=== PATIENT | female | born 1975 | race Caucasian/White ===

== ENCOUNTER 2018-03-01 18:59 | Emergency (ER) | payer OTHER, SELFPAY ==
--- NOTE | 2018-03-01 18:59 | DT_ITS ---
This patient was seen during an EMR downtime February 24, 2018 - March 03, 2018. This patient may have a combination of paper and electronic documentation or all paper documentation. All documentation is viewable within the e-chart portion of [facility] for each patient visit.
--- NOTE | 2018-03-01 20:15 | CT_ITS ---
STUDY: CT ABDOMEN AND PELVIS WITHOUT CONTRAST REASON FOR EXAM: Female, 42 years old. Right flank pain. History of kidney stones, diabetes, coronary artery stent, IUD. RADIATION DOSAGE (If Supplied By Facility): CTDIvol = ( 22.25 ) mGy, DLP = ( 1172.81 ) mGycm TECHNIQUE: Transaxial images were obtained from the dome of the diaphragm to the symphysis pubis without oral contrast, and without intravenous contrast. Sagittal and coronal images were reconstructed. Individualized dose optimization techniques were used for this CT. COMPARISON: None. FINDINGS: There is minor subsegmental atelectasis or scarring in the anterior lung bases. The heart size is upper normal. There are atherosclerotic calcifications and/or endovascular stent in the right coronary artery. There is hepatomegaly with the right lobe measuring just over 23 cm in height. The portal vein diameter is 18 mm. There is non-visualization of the gallbladder, which may be secondary to either contraction or a prior cholecystectomy. The diameter of the mid to distal common bile duct is 6.5 mm. There is mild splenomegaly, measuring 16.1 x 8.3 x 13 cm. Normal pancreas. Normal bilateral adrenal glands. Normal right kidney. Normal left kidney. No hydronephrosis. Normal visualized stomach. Normal small intestine. There are 1-2 small sigmoid colonic diverticula. No pericolonic inflammatory stranding. The appendix is visualized and appears normal. There is mild atherosclerotic calcification of the abdominal aorta and right common iliac artery, without a demonstrated aneurysm. Normal inferior vena cava. There are a several nonspecific periaortic lymph nodes of the retroperitoneum, and a 2.4 x 1.0 x 1.2 cm node near the aortic bifurcation. There is a 2.2 x 1.1 x 0.65 cm right common iliac node, and just above this a lymph node measuring 1.8 x 1.05 x 0.7 cm. There are a few borderline enlarged lymph nodes in the inguinal tissues. Incidental note of a 10 mm diameter ectasia of the right gonadal vein. Normal urinary bladder. There is a T-shaped intrauterine device in the endometrial cavity of the normal size, anteverted uterus. The ovaries are unremarkable There is a very small umbilical hernia containing fat. There are mild degenerative changes of the visualized breast spine, as well as the right lumbosacral facet articulation. CT/Abdomen/Pelvis without Cont IMPRESSION: 1. Hepatosplenomegaly. 2. A few borderline mildly enlarged periaortic retroperitoneal lymph nodes and inguinal lymph nodes identified. 3. The gallbladder is not visualized, and may be surgically absent. 4. Atherosclerotic calcifications of the right coronary artery, lower abdominal aorta, and right common iliac artery. 5. 1-2 small sigmoid colon diverticula seen without acute diverticulitis. No sign of bowel obstruction. The appendix is normal. 6. No nephrolithiasis or hydronephrosis. 7. T-shaped IUD in the endometrial cavity of the uterus. The ovaries are normal. Electronically Signed: Fer Velásquez MD at 20:52 EDT , Service support ,
[2018-03-04 06:35] LABS: Bacteria 0 SEEN /hpf (None Seen)
[2018-03-04 06:58] LABS: Color, Urine Yellow (Yellow); Glucose, Dipstick NEGATIVE (Normal); Ketone-Dipstick Negative (Negative); Leukocyte Esterase-Dipstick 100 /ul (Negative); Mucous, Urine 1+ /hpf (<or=2+); Nitrite-Dipstick Negative (Negative); Occult Blood-Urine 25 /ul (Negative); Protein-Dipstick 15 mg/dl (Negative); Red Blood Cells-Urine 0-5 SEEN /hpf (0-5); Squamous Epithelial Cells - UA 5-10 SEEN /hpf (5-10); Urine Bilirubin Dipstick Negative (Negative); Urine Clarity Sl Cldy (Clear); Urine Urobilinogen Normal (Normal); White Blood Cells 5-10 SEEN /hpf (0-5)
[2018-03-04 06:59] LABS: Yeast-Urine RARE /hpf (None Seen)
== END 2018-03-01 21:35 | disposition home or self-care (01) ==
LOC: ED 03-02 15:42
PROVIDERS: Emergency Provider Emergency Medicine; Family Provider Nurse Practitioner Family; PCP Nurse Practitioner Family
DX: R10.9 Unspecified abdominal pain (principal); R31.9 Hematuria, unspecified; I25.10 Atherosclerotic heart disease of native coronary artery without angina pectoris; E11.9 Type 2 diabetes mellitus without complications; I10 Essential (primary) hypertension; E78.00 Pure hypercholesterolemia, unspecified; E03.9 Hypothyroidism, unspecified; Z87.442 Personal history of urinary calculi; Z79.84 Long term (current) use of oral hypoglycemic drugs; Z79.82 Long term (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; Z79.899 Other long term (current) drug therapy
CPT/HCPCS: 74176; 81001; 96361; 96374; 96375; 99283; A4216; J2405

== ENCOUNTER 2018-03-30 19:10 | Emergency (ER) | payer OTHER, SELFPAY ==
[2018-03-30 19:11] VITALS: BP 136/91; PULSE 80; RESP 16; TEMP 36.6; O2SAT 98; BMI 39.1
--- NOTE | 2018-03-30 19:20 | RAD_ITS ---
STUDY: X-RAY - RIGHT ANKLE REASON FOR EXAM: Female, 42 years old. Fall TECHNIQUE: 3 view(s) of the ankle. COMPARISON: None. FINDINGS: There is no evidence of fracture or dislocation. There are no significant degenerative changes. There are no radiodense foreign bodies. There is soft tissue swelling at the lateral aspect of the right ankle. RAD/Ankle min 3 Views IMPRESSION: No fracture or dislocation. Soft tissue swelling laterally. Electronically Signed: Willis Martin, at 19:44 EDT Tel , Service support ,
--- NOTE | 2018-03-30 20:18 | ED.VISSUMM ---
- ER Visit Summary Date of Service: 03/30/18 Chief Complaint: Right ankle injury History of Present Illness: The patient is a 42 F presenting for evaluation secondary to right ankle injury. Patient states she is camping with her grandkids and they dug a hole and she stepped in it. She suffered a plantar inversion injury of her right ankle. She denies hitting her head or loss of consciousness. She is able to bear weight with some difficulty. Patient is not on any sort of anticoagulants, denies any other injuries. Physical Examination: Physical exam unremarkable except for examination of the right lower extremity. No evidence of proximal fibular head tenderness, the lateral malleolus is swelling and and tender, no medial malleolar tenderness. No midfoot or fifth metatarsal tenderness. 2+ DP and PT pulses that are bilaterally symmetric. Normal sensation over all dermatomes, normal capillary refill, no evidence of laxity with drawer testing. Test Results: 3 view of the ankle found to be negative Emergency Department Course and Treatment: Patient presented for evaluation secondary to an ankle injury. X-rays are negative. Patient was provided with an David wrap Naprosyn and follow-up with primary care. Disposition: Discharge Impression: 1. Right ankle sprain This note was generated with [employer] dictation software. It may contain incorrect words, spelling, and punctuation that were not noted in review of the chart prior to signing ED Disposition - Plan for ED Patient: Disposition: Home or Assisted Living Chief Complaint: Lower Extremity Injury Diagnosis: Ankle sprain Instructions: ED Sprain Ankle No X Ray Referrals: Татьяна Sprague NP-C [Primary Care Provider] - As Needed
== END 2018-03-30 20:39 | disposition home or self-care (01) ==
PROVIDERS: Emergency Provider Emergency Medicine; Family Provider Nurse Practitioner Family; PCP Nurse Practitioner Family
DX: S93.401A Sprain of unspecified ligament of right ankle, initial encounter (principal); W17.2XXA Fall into hole, initial encounter; Y93.89 Activity, other specified; Y92.833 Campsite as the place of occurrence of the external cause; Y99.8 Other external cause status; I25.10 Atherosclerotic heart disease of native coronary artery without angina pectoris; E11.9 Type 2 diabetes mellitus without complications; I10 Essential (primary) hypertension
CPT/HCPCS: 73610; 99282

== ENCOUNTER → 2018-07-22 20:00 | Outpatient (CLI) | payer OTHER, SELFPAY | PROVIDERS: Family Provider Nurse Practitioner Family; PCP Nurse Practitioner Family; Visit Provider Nurse Practitioner Family | DX: G47.33 Obstructive sleep apnea (adult) (pediatric) (principal) | CPT/HCPCS: 95810 ==

== ENCOUNTER 2018-08-21 07:05 | Emergency (ER) | payer OTHER, SELFPAY ==
[2018-08-21 07:06] VITALS: BP 161/90; PULSE 80; RESP 18; TEMP 36.6; O2SAT 96; BMI 37.4
--- NOTE | 2018-08-21 07:28 | ED.VISSUMM ---
- ER Visit Summary Date of Service: 08/21/18 Chief Complaint: Left eye pain History of Present Illness: The patient is a 43 F with left upper eyelid pain and swelling. This started gradually over the last 3 days and was worse this morning. It started more towards the nasal side and has progressed over the upper lid. She does feel some discomfort around her entire left eye but the swelling and redness is exclusive to her upper lid. She reports some mild photophobia but denies any other vision changes. No double vision. No pain with eye movements. No fever or systemic symptoms. She does wear contact lenses but stopped wearing them 2 days ago. Physical Examination: Afebrile and vital signs unremarkable except for a blood pressure of 161/90. She is alert and oriented. No acute distress. No objective photophobia on exam. Pupil round and reactive. Extraocular movements normal. The eye itself appears unremarkable. The left upper lid is erythematous and edematous, more so towards the nasal side. No palpable masses or induration. Skin otherwise normal. No lymphadenopathy noted. Test Results: None indicated Emergency Department Course and Treatment: Patient likely has a blepharitis but she does have some signs and symptoms that she might be progressing to a periorbital cellulitis. She was treated with both erythromycin topical and clindamycin by mouth. Instructed about warm compresses. She will also use baby shampoo and water to clean the area. Follow-up with ophthalmology for recheck. Precautions were discussed. No contact lenses. Orbital cellulitis discussed and patient will return if she has any issues. Treatment Plan: As above Disposition: Discharge Impression: 1. Left upper lid blepharitis This note was generated with [employer] dictation software. It may contain incorrect words, spelling, and punctuation that were not noted in review of the chart prior to signing ED Disposition - Plan for ED Patient: Chief Complaint: Eye Problem Instructions: Treating Blepharitis: Self-Care Prescriptions: Clindamycin [Cleocin] 450 mg PO 4X/DAY 7 Days #63 cap Referrals: Alexsander Hill MD [STAFF PHYSICIAN] -
[2018-08-21] MEDS: Erythromycin Base 1 OPTH.TUBE 1 APPLIC LEFT EYE (07:40)
[2018-08-21] MEDS: Clindamycin HCl 150 MG Capsule 450 MG PO (07:40)
[2018-08-21 07:52] VITALS: RESP 16; O2SAT 98
--- OUTSIDE RECORDS SUMMARY | 2018-10-16 07:16 | XMS RPT_ITS ---
:1975 Author Organization OHIP Care Team Providers Name Role Phone Va Emanuel Attending Unavailable Primay Care Physicia, No Primary Care Unavailable Azalea Price Attending Unavailable Lester Lopez Primary Care Unavailable Lico Polanco Attending Unavailable Lester Lopez Referring Unavailable Lester Lopez Primary Care Unavailable Trill, Lester Primary Care Unavailable Gil Cuevas Attending Unavailable TrillLester Attending Unavailable Trill, Lester Primary Care Unavailable Trill, Lester Primary Care Unavailable Eulogio Casey Attending Unavailable Trill, Lester Attending Unavailable Trill, Lester Primary Care Unavailable CHITO REAVES Attending Unavailable TERRELL, KAVITHA Attending Unavailable TRILL, LESTER C ([facility]) Referring Unavailable TERRELL, KAVITHA Referring Unavailable TERRELL, KAVITHA Referring Unavailable TRILL, LESTER C ([employer] [employer]) Attending Unavailable TRILL, LESTER C ([employer] [employer]) Referring Unavailable BHARTI MCCOLLUM Attending Unavailable TRILL, LESTER Tita ([employer] [employer]) Attending Unavailable TRILL, LESTER C ([employer] [employer]) Referring Unavailable FARHAT RUIZ Attending Unavailable RICKY CASTANEDA Attending Unavailable RICKY CASTANEDA Referring Unavailable TERRELL, KAVITHA Attending Unavailable TERRELL, KAVITHA Referring Unavailable TRILL, LESTER C ([employer] [employer]) Attending Unavailable TRILL, LESTER Tita ([employer] [employer]) Referring Unavailable JORGE LIMON Referring Unavailable Chito Reaves MD Admitting Unavailable Chito Reaves MD Attending Unavailable JORGE LIMON ([facility]) Attending Unavailable TERRELL, KAVITHA Referring Unavailable OBIE SAMANO Attending Unavailable OBIE SAMANO Referring Unavailable Rell ENGLISH Attending Unavailable TRILL, LESTER C Primary Care Unavailable SUAD ARCHIBALD Referring Unavailable TRILL, LESTER C Primary Care Unavailable TRILL, LESTER C Referring Unavailable TERRELL, KAVITHA Attending Unavailable TRILL, LESTER C Primary Care Unavailable TERRELL, KAVITHA Referring Unavailable TRILL, LESTER C Primary Care Unavailable TERRELL, KAVITHA Referring Unavailable Rell HI Attending Unavailable TRILL, LESTER C Referring Unavailable TRILL, LESTER C Primary Care Unavailable Rell CASTANEDA Referring Unavailable TRILL, LESTER C Primary Care Unavailable IMCA Referring Unavailable TRILL, LESTER C Primary Care Unavailable IMCA Referring Unavailable Rell CASTANEDA Attending Unavailable TRILL, LESTER C Primary Care Unavailable TRILL, LESTER C Primary Care Unavailable TERRELL, KAVITHA Referring Unavailable TERRELL, KAVITHA Attending Unavailable PROBLEMS PROBLEMS DATE TYPE CONDITION / CODE ATTENDING STATUS SOURCE 08/25/2018 Active Type 2 diabetes JESSICA, LESTER C Active [facility] mellitus without ([facility]) Clinic Other complications / [place] E11.9(ICD-10) Repository 08/18/2018 Active Unspecified LEONEL RICKY Active [place] abdominal pain / [facility] Other R10.9(ICD-10) [place] Repository 08/18/2018 Active Abnormal results of RICKY CASTANEDA Active [place] liver function [facility] Other studies / [place] R94.5(ICD-10) Repository 08/18/2018 Active Hepatomegaly with RICKY CASTANEDA Active [place] splenomegaly, not [facility] Other elsewhere [place] classified / Repository R16.2(ICD-10) 08/18/2018 Active Gastro-esophageal LEONELRICKY Active [place] reflux disease [facility] Other without esophagitis [place] / K21.9(ICD-10) Repository 08/18/2018 Admitting Unknown / Rell CASTANEDA Active [facility] diagnosis UNK(Unknown) [facility] Repository 08/18/2018 Active Atypical squamous PAPFARHAT Active [place] cells of [facility] Other undetermined [place] significance on Repository cytologic smear of cervix (ASC-US) / R87.610(ICD-10) 08/18/2018 Active Cervical high risk PAPFARHAT Active [place] human [facility] Other papillomavirus [place] (HPV) DNA test Repository positive / R87.810(ICD-10) 08/05/2018 Active Chest pain, LESTER LOPEZ Active [facility] unspecified / ([facility] Clinic Other R07.9(ICD-10) [place] Repository 08/05/2018 Active Cough / R05(ICD-10) LESTER LOPEZ Active [facility] ([facility] Clinic Other [place] Repository 08/05/2018 Active Abdominal LESTER LOPEZ Active [facility] distension ([facility]) Clinic Other (gaseous) / [place] R14.0(ICD-10) Repository 08/05/2018 Active Atelectasis / LESTER LOPEZ Active [facility] J98.11(ICD-10) ([facility]) Clinic Other [place] Repository 2018 Active Zoster without CONKLE, BHARTI Active [facility] complications / [facility] Other B02.9(ICD-10) [place] Repository 2018 Active Splenomegaly, not CONKLE, BHARTI Active [facility] elsewhere [facility] Other classified / [place] R16.1(ICD-10) Repository 2018 Active Localized enlarged CONKLE, BHARTI Active [facility] lymph nodes / [facility] Other R59.0(ICD-10) [place] Repository 01/29/2018 Active Obesity, LESTER LOPEZ Active [place] unspecified / ([facility] Clinic Other E66.9(ICD-10) [place] Repository 07/28/2018 Active Encounter for LESTER LOPEZ Active [place] [facility] adult ([facility]) Clinic Other medical examination [place] without abnormal Repository findings / Z00.00(ICD-10) 07/28/2018 Active Encounter for LESTER LOPEZ Active [place] gynecological ([facility]) Clinic Other examination [place] (general) (routine) Repository without abnormal findings / Z01.419(ICD-10) 07/28/2018 Active Encounter for LESTER LOPEZ Active [place] screening for ([facility]) Clinic Other malignant neoplasm [place] of cervix / Repository Z12.4(ICD-10) 07/28/2018 Active Encounter for LESTER LOPEZ Active [place] screening mammogram ([facility]) Clinic Other for malignant [place] neoplasm of breast Repository / Z12.31(ICD-10) 07/28/2018 Active Unspecified lump in LESTER LOPEZ Active [place] unspecified breast ([facility]) Clinic Other / N63.0(ICD-10) [place] Repository 07/23/2018 Active Other specified NA Active [place] abnormal Clinic Other immunological [place] findings in serum / Repository R76.8(ICD-10) 07/23/2018 Active Pain in unspecified NA Active [place] joint / Clinic Other M25.50(ICD-10) [place] Repository 05/21/2018 Active Generalized NA Active [place] enlarged lymph Clinic Other nodes / [place] R59.1(ICD-10) Repository 07/23/2018 Active Abnormal weight KAVITHA TERRELL Active [place] loss / Clinic Other R63.4(ICD-10) [place] Repository 08/07/2018 Unknown G47.33 - Lester Lopez Active [facility] ap[facility] (pediatric) / Repository G47.33(ICD-10) 07/11/2018 Admitting Follow-up / 145() POLIWALTER, Active [facility] ([place]) Repository 07/11/2018 Admitting Chest Pain / POLINSPAULO, Active [facility] [id number]() [facility] [place] Repository 07/11/2018 Admitting Palpitations / POLINSKI, Active [facility] 556854() [facility] [place] Repository 03/21/2018 Unknown R10.9 - Unspecified Dussel, Active [place] [facility] R10.9(ICD-10) Hospital Repository 09/25/2017 Admitting Encounter for CHITO REAVES Active [facility] diagnosis general adult LEMU[place] Repository medical examination without abnormal findings / Z00.00(ICD-10) PROCEDURES PROCEDURES No Procedure Records FoundRESULTS RESULTS MISC. TEST Collected: 09/03/2018 Status: F [facility]: [facility] 7:55 AM [facility] REPOSITORY TYPE CODE TESTS RESULT OUT OF REFERENCE UNITS RANGE LAB GO3X(LOINC) Test Name Humoral Pnl LAB GO1X(LOINC) [facility] Order HUMOR1 Code LAB GO2X(LOINC) Misc. Test SEE BELOW Result Result Comment: Immunoglobulin A 80 Reference range: 68 to 408 Unit: mg/dL (NOTE) REFERENCE INTERVAL: Immunoglobulin A Access complete set of age- and/or gender-specific reference intervals for this test in the [facility] Test Directory ([facility]). Immunoglobulin M 28 L Reference range: 35 to 263 Unit: mg/dL (NOTE) REFERENCE INTERVAL: Immunoglobulin M Access complete set of age- and/or gender-specific reference intervals for this test in the [facility] Test Directory ([facility]). Immunoglobulin G 769 Reference range: 768 to 1632 Unit: mg/dL (NOTE) REFERENCE INTERVAL: Immunoglobulin G Access complete set of age- and/or gender-specific reference intervals for this test in the [facility] Test Directory ([facility]). IgG 1 365 Reference range: 240 to 1118 Unit: mg/dL (NOTE) REFERENCE INTERVAL: Immunoglobulin G Subclass 1 Access complete set of age- and/or gender-specific reference intervals for this test in the [facility] Test Directory ([facility]). IgG 2 229 Reference range: 124 to 549 Unit: mg/dL (NOTE) REFERENCE INTERVAL: Immunoglobulin G Subclass 2 Access complete set of age- and/or gender-specific reference intervals for this test in the [facility] Test Directory ([facility]). IgG 3 91 Reference range: 21 to 134 Unit: mg/dL (NOTE) REFERENCE INTERVAL: Immunoglobulin G Subclass 3 Access complete set of age- and/or gender-specific reference intervals for this test in the [facility] Test Directory ([facility]). IgG 4 8 Reference range: 1 to 123 Unit: mg/dL (NOTE) REFERENCE INTERVAL: Immunoglobulin G Subclass 4 Access complete set of age- and/or gender-specific reference intervals for this test in the [facility] Test Directory ([facility]). Performed by [facility], [address] [place] [id number] [email or web address], Jung Pickering MD, Lab. Director Diphtheria Abs, IgG 0.6 Unit: IU/mL (NOTE) INTERPRETIVE INFORMATION: Diphtheria Ab, IgG Antibody concentration of greater than 0.1 IU/mL is usually considered protective. Responder status is determined according to the ratio of a one month post-vaccination sample to pre-vaccination concentrations of Diphtheria IgG Abs as follows: 1. If the one month post-vaccination concentration is less than 1.0 IU/mL, the patient is considered to be a non-responder. 2. If the post-vaccination concentration is greater than or equal to 1.0 IU/mL, a patient with a ratio of less than 1.5 is a non-responder, a ratio of 1.5 to less than 3.0, a weak responder, and a ratio of 3.0 or greater, a good responder. 3. If the pre-vaccination concentration is greater than 1.0 IU/mL, it may be difficult to assess the response based on a ratio alone. A post-vaccination concentration above 2.5 IU/mL in this case is usually adequate. Test developed and characteristics determined by [facility]. See Compliance Statement B: [facility]/ Tetanus Abs, IgG 11.2 Unit: IU/mL (NOTE) INTERPRETIVE INFORMATION: Tetanus Ab, IgG Antibody concentration of greater than 0.1 IU/mL is usually considered protective. Responder status is determined according to the ratio of a one-month post-vaccination sample to pre-vaccination concentration of Tetanus IgG Abs as follows: 1. If the one month post-vaccination concentration is less than 1.0 IU/mL, the patient is considered a non-responder. 2. If the post-vaccination concentration is greater than or equal to 1.0 IU/mL, a patient with a ratio of less than 1.5 is a non-responder, a ratio of 1.5 to less than 3.0, a weak responder, and a ratio of 3.0 or greater, a good responder. 3. If the pre-vaccination concentration is greater than 1.0 IU/mL, it may be difficult to assess the response based on a ratio alone. A post-vaccination concentration above 2.5 IU/mL in this case is usually adequate. Test developed and characteristics determined by [facility]. See Compliance Statement B: [facility]/CS Pneu Serotype 1 2.22 Unit: ug/mL Pneu Serotype 3 7.97 Unit: ug/mL Pneu Serotype 4 0.93 Unit: ug/mL Pneu Serotype 5 10.10 Unit: ug/mL Pneu Serotype 6B 0.85 Unit: ug/mL Pneu Serotype 7F 0.67 Unit: ug/mL Pneu Serotype 8 2.39 Unit: ug/mL Pneu Serotype 9N 1.59 Unit: ug/mL Pneu Serotype 9V 0.46 Unit: ug/mL Pneu Serotype 12F 1.03 Unit: ug/mL Pneu Serotype 14 33.89 Unit: ug/mL Pneu Serotype 18C 0.93 Unit: ug/mL Pneu Serotype 19F 6.09 Unit: ug/mL Pneu Serotype 23F >30.78 Unit: ug/mL Pneu Interpretation SEE NOTE (NOTE) INTERPRETIVE INFORMATION: Streptococcus pneumoniae Antibodies, IgG A pre- and post-vaccination comparison is required to adequately assess the humoral immune response to Prevnar 7 (P7), Prevnar 13 (P13), and/or Pneumovax 23 (PNX) Streptococcus pneumoniae vaccines. Pre-vaccination samples should be collected prior to vaccine administration. Post-vaccination samples should be obtained at least 4 weeks after immunization. Testing of post-vaccination samples alone will provide only general immune status of the individual to various pneumococcal serotypes. In the case of pure polysaccharide vaccine, indication of immune system competence is further delineated as an adequate response to at least 50 percent of the serotypes in the vaccine challenge for those 2-5 years of age and to at least 70 percent of the serotypes in the vaccine challenge for those 6-65 years of age. Individual immune response may vary based on age, past exposure, immunocompetence, and pneumococcal serotype. Responder Status Antibody Ratio Non-Responder . . . . . . . . . . . . . . Less than 2-fold Weak Responder . . . . . . . . . . . . . 2-fold to 4-fold Good Responder . . . . . . . . . . . . . Greater than 4-fold A response to 50-70 percent or more of the serotypes in the vaccine challenge is considered a normal humoral response(1). Antibody concentration greater than 1.0 - 1.3 ug/mL is generally considered long-term protection(2). References: 1. Lenore INGRAM, Alyssa JW, Travon X, HE, Juanito HR. Multilaboratory assessment of threshold versus fold-change algorithms for minimizing analytical variability in multiplexed pneumococcal IgG measurements. Clin Vaccine Immunol. 2014;21(7):982-8. 2. Lenore INGRAM, Juanito JENSEN. Use and Clinical Interpretation of Pneumococcal Antibody Measurements in the Evaluation of Humoral Immune Function. Clin Vaccine Immunol. 2015;22(2):148-152. Test developed and characteristics determined by [facility]. See Compliance Statement B: [facility]/CS Performing Laboratory: Performed By: #### GOX #### [place] [address] [facility]Y [facility] Collected: 09/03/2018 Status: F Source: [place] 7:53 AM [facility] REPOSITORY TYPE CODE TESTS RESULT OUT OF REFERENCE UNITS RANGE LAB LYP1X([place]) Immunodeficiency CDC SEE BELOW Result Comment: CD3+ T Cell % 78 60-89 % Specimen age is outside of the required limit of the IVD status reagent employed in this test. However, studies have been performed by the Flow Cytometry laboratory at the [facility] showing acceptable correlations within 72 hours of draw with the exception of NK cell percentage and absolute numbers. If clinically indicated, recommend repeat testing performed on fresh sample. LYMPHOCYTE VIABILITY WAS 99% CD3+ T Cell No. [phone] Cells/uL CD4+CD3+ T Cell % 54 34-61 % CD4+CD3+ T Cell No. [phone] Cells/uL CD3+CD8+ T Cell % 22 10-41 % CD3+CD8+ T Cell No. [phone] Cells/uL CD19+ B Cell % 15 5-22 % CD19+ B Cell No. [phone] Cells/uL NK Cell % 7 5-25 % NK Cell No. 93 L 102-565 Cells/uL CD4/CD8 Ratio 2.49 1.10-3.25 Immunodef. Comment SEE BELOW Clinical interpretation of lymphocyte subsets must be made with caution. Relative and absolute values may be profoundly affected by immunosuppressive or cytotoxic therapy, and be abnormal in a wide variety of infectious, inflammatory, autoimmune and neoplastic disorders. The following number of cluster designated antibodies were used for the definition of the above reported populations: CD3, CD4, CD8, CD16, CD19, and CD56. This test was developed and its performance characteristics determined by [facility] Medicine [place] ([facility]). It has not been cleared or approved by the FDA. [facility] is regulated under CLIA as qualified to perform high-complexity testing. This test is used for clinical purposes. It should not be regarded as investigational or for research. Performing Laboratory: [place] [id number] [place] [id number] Performed By: #### LYP1X #### [place] [address] PROGRESS Observed: 09/03/2018 Status: COMPLETED Source: [place] 7:16 AM [facility] REPOSITORY HNO ID: [id number] Author: Jorge Limon Service: (none) Author Type: Physician Type: Progress Notes Filed: 09/03/2018 9:29 AM Note Text: This is a request for consultation by Kavitha Terrell MD for the evaluation of low IgM. Please note that this note has been generated by the [employer] dictation software. Quite often unanticipated grammatical, syntax, homophones, and other interpretive errors are inadvertently transcribed by the computer software. Please disregard these errors. Please excuse any errors that have escaped final proofreading. Ms. Tan is a 43 year old female who, has been seen by Dr. Terrell and rheumatology, she has had enlarged lymph nodes, and a positive LARISSA. During her workup she was found to have a low IgM level, her IgM level was 26, the lower limit of normal is considered to be 40. Her other immunoglobulin level such as IgA, IgE, IgG are all within normal range. Her IgG is 769. I inquired whether she has a history of frequent infections, she says that the only frequent infections she experiences is ingrown toenails with MRSA, she gets fingernail infection from time to time that needs to get lanced. She has not had a prior workup of her immune system, and this is the first time she has been told that her antibody level is low. She apparently has had a Pneumovax several years ago, does not seem like it was within the last 5 years. We then went over a detailed history of infections, this is detailed below: Recurrent infections: 1. Sinusitis: Once a year 2. Bronchitis: No, also not a smoker 3. Pneumonia: Some scarring seen on an Xray and told may have missed a PNA once 4. Meningitis: None 5. Osteomyelitis: None 6. Bacteremia: None 7. Sepsis: NOne 8. Endocarditis: None 9. GI Infections: None 10. UTIs: Not really 11. Otitis media in the past None 12. Cellulitis: Had once in last two years from ingrown toenail, was on Keflex 13. Other Infections:see HPI 14. Steroid Use: Was on steroids for shingles once, a month ago, just took for a day 15. Biologics:None 16. Abx use:see HPI 17. IV Abx:None Potential CVID related comorbidities: Fevers- None LAD-Noticed 1.5 years ago, associated with LN, has had a Bx before that's showed reactibe, flared again a month ago, now even pelvic Enteropathy-None Fatigue-Yes. With 10 pounds of unintentional weight loss Autoimmune Disease/Joint pain-+LARISSA, but does not have a dx, does have sicca Sx Splenomegaly-Some spleen enlargement on CT scan, to screen for LN No family history of immune deficiency. Atopy: Does not feel she has seasonal allergies, possibly cat, does not have cats Nasal polyps: The patient has never had nasal polyps. Asthma: The patient has a history of asthma, was more severe as child, now only viral induced, maximum times in once a year Eczema: The patient has no history of eczema. No Beesting allergies. No medication allergies, just chest pain on imitrex. Ultram makes her heart race. Past Medical History: PAST MEDICAL HISTORY Diagnosis Date - Abdominal pain - Abnormal liver ultrasound - Allergic rhinitis - Anxiety - Asthma no issues for several years - Bipolar 2 disorder (HCC) 11/21/2011 - CAD (coronary artery disease) - Calculus of gallbladder without mention of cholecystitis or obstruction 08/24/2009 - Cervical high risk human papillomavirus (HPV) DNA test positive - Common cold - Depressive disorder Dr. Cornell- [facility] - Diabetes (HCC) - Diarrhea - Double vessel coronary artery disease 2 stents - Elevated LFTs - Excessive or frequent menstruation Heavy periods Resolved - Female stress incontinence 01/13/2008 - Ganglion of joint 10/14/2007 - GERD (gastroesophageal reflux disease) - Hand pain - Hemorrhage of gastrointestinal tract, unspecified - Hepatosplenomegaly - History of intrauterine contraceptive device Mirena placed May 2015 Dr. Willy Schmid - Hyperlipidemia - Hypertension - Internal hemorrhoids without mention of complication - Irregular menstrual cycle Irregular periods Resolved - Irritable bowel syndrome Irritable bowel - Obesity - Obstructive sleep apnea Last PSG 07/22/18 = AHI 14.5 - Onychomycosis - Other specified acquired hypothyroidism - Ovarian cystic mass 06/07/2010 - Panic attack 07/18/2010 - Papanicolaou smear of cervix with atypical squamous cells of undetermined significance (ASC-US) - Paresthesia of hand - PLANTAR Fasciitis 07/15/2007 - PTSD (post-traumatic stress disorder) - Status post left heart catheterization 10/2014 Past Surgical History: PAST SURGICAL HISTORY Procedure Laterality Date - ANGIOPLASTY 11/23/14 [facility]-proximal LAD and proximal RCA 2 stents - CARDIAC CATHETERIZATION HX 11/20/14 [facility]proximal RCA lesion - COLONOSCOP W/ OR W/O BRSH SPEC 06/09/14 Colonoscopy - COLONOSCOPY W/BX 08/13/07 - COLPOSCOPY (VAGINOSCOPY) 2006 Colposcopy - EXCIS PRIMARY GANGLION WRIST 11/04/07 LEFT WRIST, Dr. Alcantara - LAP CHOLECYSTECT/CHOLANGIOGRAPHY 09/05/2009 Normal IOC - LIGATE FALLOPIAN TUBE 10/1998 Tubal ligation, [facility] - PAST SURGICAL HISTORY OF Left 01/28/15 middle trigger finger release - S SLING DANIELLE HARVEY TOTScott [id number] 2013 monarc - THYROIDECTOMY 01/1994 goiter no cancer Allergies: Benedryl [Diphenhydramine]; Doxycycline; Imitrex [Sumatriptan Succinate]; Phenergan [Promethazine Hcl]; Tramadol Current Outpatient Prescriptions: albuterol HFA (VENTOLIN HFA) 90 mcg/actuation inhaler Inhale 2 Puffs as instructed every 4 hours as needed for Wheezing/Shortness of Breath. ascorbic acid, vitamin C, (VITAMIN C) 500 mg tablet Take 500 mg by mouth once daily. aspirin 81 mg chewable tablet Take 81 mg by mouth. atorvastatin (LIPITOR) 20 mg tablet Take 1 tablet by mouth once daily. blood sugar diagnostic (BLOOD GLUCOSE TEST) test strip Test blood sugar(s) one times daily. Dx: 250.00. Insulin: No blood sugar diagnostic (ONETOUCH ULTRA TEST) test strip Use as instructed. Insurance preferred brand. Blood-Glucose Meter misc 1 Units once daily. carvedilol (COREG) 12.5 mg tablet Take 1 tablet by mouth twice daily. Cholecalciferol, Vitamin D3, 1,000 unit cap Take 1 capsule by mouth once daily. clopidogrel (PLAVIX) 75 mg tablet Take 1 tablet by mouth once daily. famotidine (PEPCID) 20 mg tablet Take 1 tablet by mouth daily at bedtime. ferrous sulfate (IRON) 325 mg (65 mg iron) tablet Take 1 tablet by mouth daily with breakfast. fluticasone (FLONASE) 50 mcg/actuation nasal spray Use 1 [place] in each nostril once daily. gabapentin (NEURONTIN) 100 mg capsule Take 2 capsules by mouth daily at bedtime for 30 days. JANUVIA 100 mg tablet TAKE 1 TABLET EVERY DAY Lancets lancets Test blood sugar(s) one times daily. Dx: 250.00. Insulin: No Lancets lancets Use as instructed. Preferred insurance brand. levonorgestrel (MIRENA) 20 mcg/24 hr (5 years) IUD 1 Each by INTRAUTERINE route continuous. levothyroxine (SYNTHROID) 175 mcg tablet Take 1 tablet by mouth once daily. melatonin 10 mg cap Take 10 mg by mouth daily at bedtime. metFORMIN (GLUCOPHAGE) 1,000 mg tablet TAKE 1 TABLET TWICE DAILY WITH meals pantoprazole DR (PROTONIX) 40 mg tablet Take 1 tablet by mouth once daily. perflutren lipid microspheres (DEFINITY) 1.1 mg/mL injection (to be provided with echo procedure) Inject 1.3 mL intravenously as directed. clindamycin (CLEOCIN) 150 mg capsule 4 TIMES DAILY doxycycline (VIBRA-TABS) 100 mg tablet Take 100 mg by mouth twice daily. FLUARIX QUAD [id number], PF, 60 mcg (15 mcg x 4)/0.5 mL syrg No current facility-administered medications for this visit. 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 Social History Main Topics Smoking status: Never Smoker Smokeless tobacco: Never Used Alcohol use: No Drug use: No Comment: no reported history Sexual activity: Yes Partners with: Male control/protection: Surgical, Tubal Ligation Other Topics Concern Caffeine Concern Not Asked Comment:uses caffeine FAMILY HISTORY Problem Relation Age of Onset - Cancer Mother /lung cancer/nonhodgkins lymphoma/Ovarian - Asthma Mother - Hyperlipidemia Mother - other (depressive disorder) Mother - Heart Father - Hyperlipidemia Father - Hypertension Father - other (cornary artery disease) Father heart attack and stents put in - Hypertension Brother - Blood Clots Brother Lungs - No Known Problems Brother - No Known Problems Brother - Osteoporosis Maternal Grandmother - Coronary Artery Disease Paternal Grandmother - Diabetes Paternal Grandmother - Coronary Artery Disease Paternal Grandfather - Hypertension Paternal Grandfather - Hypertension Son - Breast Cancer Other maternal great grandmother REVIEW OF SYSTEMS: GENERAL: Denies fever, chills, night sweats, or changes in weight. DERM: Denies any new skin conditions, rashes or changing moles. EYES: Denies recent visual changes. ENT: Denies hearing loss or tinnitus RESP: Denies any cough, dyspnea, or wheezing. CV: Denies any chest pain with exertion or at rest, palpitations, syncope, or edema. GI: Denies any nausea, vomiting, abdominal pain, heartburn, changes in bowel habit, MUSCULOSKELETAL: Denies any joint swelling NEURO: Denies any headaches PSYCH: Denies any sleeping problems HEME/LYMPHATIC/IMMUNO: Denies bruising ENDO: Denies any heat or cold intolerance, polyuria or polydipsia. All other review of systems negative except for those listed above. EXAM: Blood pressure 142/77, pulse 66, resp. rate 14, height 165.1 cm (5' 5), weight 102.1 kg (225 lb), SpO2 100 %. APPEARANCE: Well appearing, alert, in no acute distress, well-hydrated, well nourished. EYES: sclera non-icteric, conjunctiva non-injected EARS: External ears normal. Canals clear. TM's normal. NOSE/SINUS: Nares normal. Septum midline. Mucosa normal. No drainage or sinus tenderness. OROPHARYNX: Lips, tongue normal. Oropharynx clear. THROAT: no erythema NECK: neck supple, no adenopathy HEART: Regular rate, regular rhythm, S1 normal, S2 normal, no S3, no S4 and no murmur LUNG: clear to auscultation LYMPH NODES: No cervical lymphadenopathy ABDOMEN: soft, nontender, nondistended EXTREMITIES: No deformities, No skin discoloration and No edema NEURO: Awake, alert and oriented x 3, Normal gait and No involuntary motions. SKIN: Skin color, texture, turgor normal. No rashes or lesions. ASSESSMENT AND PLAN: Ms. 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 She does not have a significant history of recurrent infections, does have diffuse lymphadenopathy of undetermined significance at this time, with positive LARISSA. Discussed with her that sometimes isolated low levels of IgM can be associated with other autoimmune conditions, and rarely it can cause an immune deficiency called selective IgM deficiency. (R76.8) Low serum IgM for age (primary encounter diagnosis) Comment: We shall recheck the humeral panel, to determine whether the initial IgM level was accurate. I also gave her pneumonia vaccine today, in the form of Pneumovax, if her IgM level was found to be low again, we shall correlate IgG titers to Pneumovax to see what her antibody responses. We'll also review his CDC immunodeficiency panel. Have a low suspicion of any underlying immunodeficiency here. Selective IgM deficiency is extremely rare, there is roughly 500 cases reported in the medical literature. Plan: IMMUNODEFICIENCY CDC, HUMORAL IMMUNITY PANEL 1, PNEUMOCOCCAL IMMUNIZATION PPSV 23 This note has been shared with the consulting provider, via the electronic medical record, or regular [place] mail service. Jorge Limon MD Allergy and Clinical Immunology PAGER: [phone] Date: September 03, 2018 Time:7:16 AM CNOV Observed: 09/03/2018 Status: COMPLETED Source: [place] 7:00 AM [facility] REPOSITORY Office Visit ([facility]) MAHI TAN ([id number]) 1975 F Date Time Provider Department 09/03/18 7:00 AM JORGE LIMON [facility] During your visit today, we recorded the following information about you: Pulse Respiration Blood pressure Weight 66/minute 14/minute 142/77 102.1 kg Height 1.651 m Jorge Limon MD 09/03/2018 9:29 AM Signed This is a request for consultation by Kavitha Terrell MD for the evaluation of low IgM. Please note that this note has been generated by the [employer] dictation software. Quite often unanticipated grammatical, syntax, homophones, and other interpretive errors are inadvertently transcribed by the computer software. Please disregard these errors. Please excuse any errors that have escaped final proofreading. Ms. Tan is a 43 year old female who, has been seen by Dr. Terrell and rheumatology, she has had enlarged lymph nodes, and a positive LARISSA. During her workup she was found to have a low IgM level, her IgM level was 26, the lower limit of normal is considered to be 40. Her other immunoglobulin level such as IgA, IgE, IgG are all within normal range. Her IgG is 769. I inquired whether she has a history of frequent infections, she says that the only frequent infections she experiences is ingrown toenails with MRSA, she gets fingernail infection from time to time that needs to get lanced. She has not had a prior workup of her immune system, and this is the first time she has been told that her antibody level is low. She apparently has had a Pneumovax several years ago, does not seem like it was within the last 5 years. We then went over a detailed history of infections, this is detailed below: Recurrent infections: 1. Sinusitis: Once a year 2. Bronchitis: No, also not a smoker 3. Pneumonia: Some scarring seen on an Xray and told may have missed a PNA once 4. Meningitis: None 5. Osteomyelitis: None 6. Bacteremia: None 7. Sepsis: NOne 8. Endocarditis: None 9. GI Infections: None 10. UTIs: Not really 11. Otitis media in the past None 12. Cellulitis: Had once in last two years from ingrown toenail, was on Keflex 13. Other Infections:see HPI 14. Steroid Use: Was on steroids for shingles once, a month ago, just took for a day 15. Biologics:None 16. Abx use:see HPI 17. IV Abx:None Potential CVID related comorbidities: Fevers- None LAD-Noticed 1.5 years ago, associated with LN, has had a Bx before that's showed reactibe, flared again a month ago, now even pelvic Enteropathy-None Fatigue-Yes. With 10 pounds of unintentional weight loss Autoimmune Disease/Joint pain-+LARISSA, but does not have a dx, does have sicca Sx Splenomegaly-Some spleen enlargement on CT scan, to screen for LN No family history of immune deficiency. Atopy: Does not feel she has seasonal allergies, possibly cat, does not have cats Nasal polyps: The patient has never had nasal polyps. Asthma: The patient has a history of asthma, was more severe as child, now only viral induced, maximum times in once a year Eczema: The patient has no history of eczema. No Beesting allergies. No medication allergies, just chest pain on imitrex. Ultram makes her heart race. Past Medical History: PAST MEDICAL HISTORY Diagnosis Date - Abdominal pain - Abnormal liver ultrasound - Allergic rhinitis - Anxiety - Asthma no issues for several years - Bipolar 2 disorder (HCC) 11/21/2011 - CAD (coronary artery disease) - Calculus of gallbladder without mention of cholecystitis or obstruction 08/24/2009 - Cervical high risk human papillomavirus (HPV) DNA test positive - Common cold - Depressive disorder Dr. [facility]- [facility] - Diabetes (HCC) - Diarrhea - Double vessel coronary artery disease 2 stents - Elevated LFTs - Excessive or frequent menstruation Heavy periods Resolved - Female stress incontinence 01/13/2008 - Ganglion of joint 10/14/2007 - GERD (gastroesophageal reflux disease) - Hand pain - Hemorrhage of gastrointestinal tract, unspecified - Hepatosplenomegaly - History of intrauterine contraceptive device Mirena placed May 2015 Dr. Willy Schmid - Hyperlipidemia - Hypertension - Internal hemorrhoids without mention of complication - Irregular menstrual cycle Irregular periods Resolved - Irritable bowel syndrome Irritable bowel - Obesity - Obstructive sleep apnea Last PSG 07/22/18 = AHI 14.5 - Onychomycosis - Other specified acquired hypothyroidism - Ovarian cystic mass 06/07/2010 - Panic attack 07/18/2010 - Papanicolaou smear of cervix with atypical squamous cells of undetermined significance (ASC-US) - Paresthesia of hand - PLANTAR Fasciitis 07/15/2007 - PTSD (post-traumatic stress disorder) - Status post left heart catheterization 10/2014 Past Surgical History: PAST SURGICAL HISTORY Procedure Laterality Date - ANGIOPLASTY 11/23/14 [facility]-proximal LAD and proximal RCA 2 stents - CARDIAC CATHETERIZATION HX 11/20/14 [facility]-proximal RCA lesion - COLONOSCOP W/ OR W/O [facility] SPEC 06/09/14 Colonoscopy - COLONOSCOPY W/BX 08/13/07 - COLPOSCOPY (VAGINOSCOPY) 2006 Colposcopy - EXCIS PRIMARY GANGLION WRIST 11/04/07 LEFT WRIST, Dr. Alcantara - LAP CHOLECYSTECT/CHOLANGIOGRAPHY 09/05/2009 Normal IOC - LIGATE FALLOPIAN TUBE 10/1998 Tubal ligation, [facility] - PAST SURGICAL HISTORY OF Left 01/28/15 middle trigger finger release - S SLING DARRYNDR HARVEY JAS [id number] 2013 monarc - THYROIDECTOMY 01/1994 goiter no cancer Allergies: Benedryl [Diphenhydramine]; Doxycycline; Imitrex [Sumatriptan Succinate]; Phenergan [Promethazine Hcl]; Tramadol Current Outpatient Prescriptions: albuterol HFA (VENTOLIN HFA) 90 mcg/actuation inhaler Inhale 2 Puffs as instructed every 4 hours as needed for Wheezing/Shortness of Breath. ascorbic acid, vitamin C, (VITAMIN C) 500 mg tablet Take 500 mg by mouth once daily. aspirin 81 mg chewable tablet Take 81 mg by mouth. atorvastatin (LIPITOR) 20 mg tablet Take 1 tablet by mouth once daily. blood sugar diagnostic (BLOOD GLUCOSE TEST) test strip Test blood sugar(s) one times daily. Dx: 250.00. Insulin: No blood sugar diagnostic (ONETOUCH ULTRA TEST) test strip Use as instructed. Insurance preferred brand. Blood-Glucose Meter misc 1 Units once daily. carvedilol (COREG) 12.5 mg tablet Take 1 tablet by mouth twice daily. Cholecalciferol, Vitamin D3, 1,000 unit cap Take 1 capsule by mouth once daily. clopidogrel (PLAVIX) 75 mg tablet Take 1 tablet by mouth once daily. famotidine (PEPCID) 20 mg tablet Take 1 tablet by mouth daily at bedtime. ferrous sulfate (IRON) 325 mg (65 mg iron) tablet Take 1 tablet by mouth daily with breakfast. fluticasone (FLONASE) 50 mcg/actuation nasal spray Use 1 Harcourt in each nostril once daily. gabapentin (NEURONTIN) 100 mg capsule Take 2 capsules by mouth daily at bedtime for 30 days. JANUVIA 100 mg tablet TAKE 1 TABLET EVERY DAY Lancets lancets Test blood sugar(s) one times daily. Dx: 250.00. Insulin: No Lancets lancets Use as instructed. Preferred insurance brand. levonorgestrel (MIRENA) 20 mcg/24 hr (5 years) IUD 1 Each by INTRAUTERINE route continuous. levothyroxine (SYNTHROID) 175 mcg tablet Take 1 tablet by mouth once daily. melatonin 10 mg cap Take 10 mg by mouth daily at bedtime. metFORMIN (GLUCOPHAGE) 1,000 mg tablet TAKE 1 TABLET TWICE DAILY WITH meals pantoprazole DR (PROTONIX) 40 mg tablet Take 1 tablet by mouth once daily. perflutren lipid microspheres (DEFINJust Sing It) 1.1 mg/mL injection (to be provided with echo procedure) Inject 1.3 mL intravenously as directed. clindamycin (CLEOCIN) 150 mg capsule 4 TIMES DAILY doxycycline (VIBRA-TABS) 100 mg tablet Take 100 mg by mouth twice daily. FLUARIX QUAD [id number], PF, 60 mcg (15 mcg x 4)/0.5 mL syrg No current facility-administered medications for this visit. 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 Social History Main Topics Smoking status: Never Smoker Smokeless tobacco: Never Used Alcohol use: No Drug use: No Comment: no reported history Sexual activity: Yes Partners with: Male control/protection: Surgical, Tubal Ligation Other Topics Concern Caffeine Concern Not Asked Comment:uses caffeine FAMILY HISTORY Problem Relation Age of Onset - Cancer Mother /lung cancer/nonhodgkins lymphoma/Ovarian - Asthma Mother - Hyperlipidemia Mother - other (depressive disorder) Mother - Heart Father - Hyperlipidemia Father - Hypertension Father - other (cornary artery disease) Father heart attack and stents put in - Hypertension Brother - Blood Clots Brother Lungs - No Known Problems Brother - No Known Problems Brother - Osteoporosis Maternal Grandmother - Coronary Artery Disease Paternal Grandmother - Diabetes Paternal Grandmother - Coronary Artery Disease Paternal Grandfather - Hypertension Paternal Grandfather - Hypertension Son - Breast Cancer Other maternal great grandmother REVIEW OF SYSTEMS: GENERAL: Denies fever, chills, night sweats, or changes in weight. DERM: Denies any new skin conditions, rashes or changing moles. EYES: Denies recent visual changes. ENT: Denies hearing loss or tinnitus RESP: Denies any cough, dyspnea, or wheezing. CV: Denies any chest pain with exertion or at rest, palpitations, syncope, or edema. GI: Denies any nausea, vomiting, abdominal pain, heartburn, changes in bowel habit, MUSCULOSKELETAL: Denies any joint swelling NEURO: Denies any headaches PSYCH: Denies any sleeping problems HEME/LYMPHATIC/IMMUNO: Denies bruising ENDO: Denies any heat or cold intolerance, polyuria or polydipsia. All other review of systems negative except for those listed above. EXAM: Blood pressure 142/77, pulse 66, resp. rate 14, height 165.1 cm (5' 5), weight 102.1 kg (225 lb), SpO2 100 %. APPEARANCE: Well appearing, alert, in no acute distress, well-hydrated, well nourished. EYES: sclera non-icteric, conjunctiva non-injected EARS: External ears normal. Canals clear. TM's normal. NOSE/SINUS: Nares normal. Septum midline. Mucosa normal. No drainage or sinus tenderness. OROPHARYNX: Lips, tongue normal. Oropharynx clear. THROAT: no erythema NECK: neck supple, no adenopathy HEART: Regular rate, regular rhythm, S1 normal, S2 normal, no S3, no S4 and no murmur LUNG: clear to auscultation LYMPH NODES: No cervical lymphadenopathy ABDOMEN: soft, nontender, nondistended EXTREMITIES: No deformities, No skin discoloration and No edema NEURO: Awake, alert and oriented x 3, Normal gait and No involuntary motions. SKIN: Skin color, texture, turgor normal. No rashes or lesions. ASSESSMENT AND PLAN: Ms. 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 She does not have a significant history of recurrent infections, does have diffuse lymphadenopathy of undetermined significance at this time, with positive LARISSA. Discussed with her that sometimes isolated low levels of IgM can be associated with other autoimmune conditions, and rarely it can cause an immune deficiency called selective IgM deficiency. (R76.8) Low serum IgM for age (primary encounter diagnosis) Comment: We shall recheck the humeral panel, to determine whether the initial IgM level was accurate. I also gave her pneumonia vaccine today, in the form of Pneumovax, if her IgM level was found to be low again, we shall correlate IgG titers to Pneumovax to see what her antibody responses. We'll also review his CDC immunodeficiency panel. Have a low suspicion of any underlying immunodeficiency here. Selective IgM deficiency is extremely rare, there is roughly 500 cases reported in the medical literature. Plan: IMMUNODEFICIENCY CDC, HUMORAL IMMUNITY PANEL 1, PNEUMOCOCCAL IMMUNIZATION PPSV 23 This note has been shared with the consulting provider, via the electronic medical record, or regular [place] mail service. Jorge Limon MD Allergy and Clinical Immunology PAGER: [phone] Date: September 03, 2018 Time:7:16 AM Jorge Limon MD 09/03/2018 7:32 AM Signed 1. You are less likely to have an immune deficiency on your history, and if we repeat bodywork it may return normal. There is a possibility that you have a condition called selective IgM deficiency, which we will discuss further, and sometimes does not confer an increased risk of infection, but may be associated with autoimmune conditions. 2. We will do some other bloodwork as well and give you a pneumovax to check your antibody response. Jorge Limon MD Allergy and Clinical Immunology PAGER: [phone] Date: September 03, 2018 Time:7:32 AM Referring Provider: KAVITHA TERRELL [[id number]] Allergies As of Date: 09/03/2018 Noted Allergy Reaction BENEDRYL (DIPHENHYDRAMINE) 07/01/2009 14 - Other: See Comments Comments: Makes her feel jittery IV- DOXYCYCLINE 08/13/2006 11 - Vomiting IMITREX (SUMATRIPTAN SUCCINATE) 12/06/2009 Comments: chest pain PHENERGAN (PROMETHAZINE HCL) 06/14/2010 5 - Intolerance Comments: restless legs IV- TRAMADOL 07/05/2017 5 - Intolerance Date Reviewed: 09/03/2018 Reviewed by: Elidia Arteaga Ma - Fully Assessed Reason for Visit: Lymphadenopathy [838] Cmt: Positive LARISSA Primary Visit Diagnosis:Low serum IgM for age [R76.8] Order(s):IMMUNODEFICIENCY CDC [SQIMMDEF] Order #: [id number] FUTURE HUMORAL IMMUNITY PANEL 1 [SQHUMOR1] Order #: [id number] FUTURE PNEUMOCOCCAL IMMUNIZATION PPSV 23 [09700VFT] Order #: [id number] Prescriptions as of 09/03/2018 Sig: ALBUTEROL SULFATE HFA 90 MCG/* Inhale 2 Puffs as instructed * ASCORBIC ACID (VITAMIN C) 500* Take 500 mg by mouth once babar* ASPIRIN 81 MG CHEWABLE TABLET Take 81 mg by mouth. ATORVASTATIN 20 MG TABLET Take 1 tablet by mouth once d* BLOOD SUGAR DIAGNOSTIC STRIPS Test blood sugar(s) one times* BLOOD SUGAR DIAGNOSTIC STRIPS Use as instructed. Insurance * BLOOD-GLUCOSE METER 1 Units once daily. CARVEDILOL 12.5 MG TABLET Take 1 tablet by mouth twice * CHOLECALCIFEROL (VITAMIN D3) * Take 1 capsule by mouth once * CLOPIDOGREL 75 MG TABLET Take 1 tablet by mouth once d* FAMOTIDINE 20 MG TABLET Take 1 tablet by mouth daily * FERROUS SULFATE 325 MG (65 MG* Take 1 tablet by mouth daily * FLUTICASONE 50 MCG/ACTUATION * Use 1 Harcourt in each nostril o* GABAPENTIN 100 MG CAPSULE Take 2 capsules by mouth janay* JANUVIA 100 MG TABLET TAKE 1 TABLET EVERY DAY LANCETS Test blood sugar(s) one times* LANCETS Use as instructed. Preferred * LEVONORGESTREL 20 MCG/24 HR (* 1 Each by INTRAUTERINE route * LEVOTHYROXINE 175 MCG TABLET Take 1 tablet by mouth once d* MELATONIN 10 MG CAPSULE Take 10 mg by mouth daily at * METFORMIN 1,000 MG TABLET TAKE 1 TABLET TWICE DAILY WIT* PANTOPRAZOLE 40 MG TABLET,DEL* Take 1 tablet by mouth once d* PERFLUTREN LIPID MICROSPHERES* Inject 1.3 mL intravenously a* CLINDAMYCIN HCL 150 MG CAPSULE 4 TIMES DAILY DOXYCYCLINE HYCLATE 100 MG TA* Take 100 mg by mouth twice da* FLUARIX QUAD 3251-6582 (PF) 6* Problem List As Of Date 09/03/2018 Noted Resolved Chest pain, unspecified [R07.9] INVALID FOR*11/21/2011 Essential hypertension, benign [I10] INVALID FOR*11/21/2011 Shortness of breath [R06.02] INVALID FOR*11/21/2011 Restless legs syndrome (RLS) [G25.81] INVALID FOR* Insomnia [G47.00] INVALID FOR* PLANTAR Fasciitis [M72.2] INVALID FOR*11/21/2011 Diarrhea [R19.7] INVALID FOR*09/29/2014 Hemorrhage of gastrointestinal tract [K92.2] INVALID FOR* Internal hemorrhoids without mention of complic*INVALID FOR*11/21/2011 Ganglion of joint [M67.40] INVALID FOR*11/21/2011 Irritable bowel syndrome [K58.9] INVALID FOR* Papanicolaou smear of cervix with atypical squa*INVALID FOR* Cervical high risk human papillomavirus (HPV) D*INVALID FOR* Female stress incontinence [N39.3] INVALID FOR* Pain in limb [M79.609] INVALID FOR*11/21/2011 Calcaneal spur [M77.30] INVALID FOR*11/21/2011 Depressive disorder, not elsewhere classified [*INVALID FOR*11/21/2011 Microscopic hematuria [R31.29] INVALID FOR*11/21/2011 Pain in joint, pelvic region and thigh [M25.559]INVALID FOR*11/21/2011 Cholelithiasis NOS [K80.20] INVALID FOR*11/21/2011 Hypothyroid [E03.9] INVALID FOR* Ovarian cystic mass [N83.209] INVALID FOR*11/21/2011 Depression, major [F32.9] 11/21/2011 Panic attack [F41.0] INVALID FOR*11/21/2011 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] INVALID FOR* Backache, unspecified [M54.9] INVALID FOR*09/29/2014 Cervicalgia [M54.2] INVALID FOR*09/29/2014 Bipolar 2 disorder (HCC) [F31.81] INVALID FOR* Dysuria [R30.0] INVALID FOR*09/29/2014 Hematuria [R31.9] INVALID FOR* Urinary tract infection [N39.0] INVALID FOR*09/29/2014 Urgency of urination [R39.15] INVALID FOR*09/29/2014 Frequency of urination [R35.0] INVALID FOR*09/29/2014 Low back pain [M54.5] INVALID FOR* Family history of ovarian cancer [Z80.41] INVALID FOR* LADONNA (stress urinary incontinence, female) [N39.*INVALID FOR* Cystocele [KGW2611] INVALID FOR* Type 2 diabetes mellitus without complication (*INVALID FOR* Trigger middle finger of left hand [M65.332] INVALID FOR* Coronary atherosclerosis [I25.10] INVALID FOR* More... Essential hypertension [I10] INVALID FOR* Morbid obesity with body mass index of 40.0-44.*INVALID FOR* GERD (gastroesophageal reflux disease) [K21.9] INVALID FOR* Obstructive sleep apnea [G47.33] INVALID FOR* More... Iron deficiency concern [E61.1] INVALID FOR* Status post insertion of drug-eluting stent int*INVALID FOR* Family history of ischemic heart disease [Z82.4*INVALID FOR* Presence of drug coated stent in right coronary*INVALID FOR* Vitamin D insufficiency [E55.9] INVALID FOR* Sprain of lumbar region-BWC [S33.5XXA] INVALID FOR* Anterior cervical lymphadenopathy [R59.0] INVALID FOR* More... Axillary lymphadenopathy [R59.0] INVALID FOR*08/14/2016 More... 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 You are less likely to have an immune deficiency on your history, and if we repeat bodywork it may return normal. There is a possibility that you have a condition called selective IgM deficiency, which we will discuss further, and sometimes does not confer an increased risk of infection, but may be associated with autoimmune conditions. 2. We will do some other bloodwork as well and give you a pneumovax to check your antibody response. Jorge Limon MD Allergy and Clinical Immunology PAGER: [phone] Date: September 03, 2018 Time:7:32 AM Follow-up and Disposition History Recorded Encounter Status:Closed by JORGE LIMON on 09/03/18 PROGRESS Observed: 08/25/2018 Status: COMPLETED Source: [place] 3:50 PM [facility] [place] REPOSITORY HNO ID: [id number] Author: Lester Rivers (Hector) Jessica Service: (none) Author Type: Nurse Practitioner Type: Progress Notes Filed: 08/25/2018 5:54 PM Note Text: Subjective HPI Here today for diabetes follow-up visit. Patient has type 2 diabetes. Feeling well today, no concerns. Denies dizziness, chest pain, shortness of breath, changes in vision, fatigue, foot pain. Denies numbness and tingling in extremities. Denies polydipsia, polyphagia, polyuria. Feeling fairly good this past week, not as achy. Did have stye in left eye, eye doctor put her on antibiotic and it is getting better. Dr. Bhaskar Terrell, rheumatology - referring patient out to immunology Dr. Momin and infectious disease Dr. Nikolay Hi - 08/[address] Castaneda - EGD scheduled for beginning of September. Also going to get gastric emptying study done. Consulted with Dr. Ruiz for abnormal Pap - treated with diflucan, repeat Pap in a month Home Blood Sugars: only checks it if she's feeling off. Hasn't been checking for the last week or so Medication Compliance: Rarely forgets Low Blood Sugars: None Diet: Diabetic diet for the most part. Water and unsweetened tea. Exercise: Walks a lot Eye Exam: June 2018 Podiatry: n/a Tobacco use - never Alcohol use - none Pap done 07/2018 = ASCUS with positive HPV, referred to [facility], Dr. Ruiz RLS - On neurontin helps a lot. Helps her sleep. Tried Requip and Mirapex in the past and side effects were intolerable., PAST MEDICAL HISTORY Diagnosis Date - Abdominal pain - Abnormal liver ultrasound - Allergic rhinitis - Anxiety - Asthma no issues for several years - Bipolar 2 disorder (HCC) 11/21/2011 - CAD (coronary artery disease) - Calculus of gallbladder without mention of cholecystitis or obstruction 08/24/2009 - Cervical high risk human papillomavirus (HPV) DNA test positive - Common cold - Depressive disorder Dr. [facility]- [facility] - Diabetes (HCC) - Diarrhea - Double vessel coronary artery disease 2 stents - Elevated LFTs - Excessive or frequent menstruation Heavy periods Resolved - Female stress incontinence 01/13/2008 - Ganglion of joint 10/14/2007 - GERD (gastroesophageal reflux disease) - Hand pain - Hemorrhage of gastrointestinal tract, unspecified - Hepatosplenomegaly - History of intrauterine contraceptive device Mirena placed May 2015 Dr. Willy Schmid - Hyperlipidemia - Hypertension - Internal hemorrhoids without mention of complication - Irregular menstrual cycle Irregular periods Resolved - Irritable bowel syndrome Irritable bowel - Obesity - Obstructive sleep apnea Last PSG 07/22/18 = AHI 14.5 - Onychomycosis - Other specified acquired hypothyroidism - Ovarian cystic mass 06/07/2010 - Panic attack 07/18/2010 - Papanicolaou smear of cervix with atypical squamous cells of undetermined significance (ASC-US) - Paresthesia of hand - PLANTAR Fasciitis 07/15/2007 - PTSD (post-traumatic stress disorder) - Status post left heart catheterization 10/2014 PAST SURGICAL HISTORY Procedure Laterality Date - ANGIOPLASTY 11/23/14 [facility]-proximal LAD and proximal RCA 2 stents - CARDIAC CATHETERIZATION HX 11/20/14 [facility]-proximal RCA lesion - COLONOSCOP W/ OR W/O [facility] SPEC 06/09/14 Colonoscopy - COLONOSCOPY W/BX 08/13/07 - COLPOSCOPY (VAGINOSCOPY) 2006 Colposcopy - EXCIS PRIMARY GANGLION WRIST 11/04/07 LEFT WRIST, Dr. Alcantara - LAP CHOLECYSTECT/CHOLANGIOGRAPHY 09/05/2009 Normal IOC - LIGATE FALLOPIAN TUBE 10/1998 Tubal ligation, [facility] - PAST SURGICAL HISTORY OF Left 01/28/15 middle trigger finger release - S SLING DANIELLE HARVEY TOTL 7705 2013 monarc - THYROIDECTOMY 01/1994 goiter no cancer ALLERGIES Benedryl [Diphenhydramine]; Doxycycline; Imitrex [Sumatriptan Succinate]; Phenergan [Promethazine Hcl]; Tramadol MEDICATIONS gabapentin (NEURONTIN) 100 mg capsule Take 2 capsules by mouth daily at bedtime for 30 days. perflutren lipid microspheres (DEFINITY) 1.1 mg/mL injection (to be provided with echo procedure) Inject 1.3 mL intravenously as directed. levothyroxine (SYNTHROID) 175 mcg tablet Take 1 tablet by mouth once daily. JANUVIA 100 mg tablet TAKE 1 TABLET EVERY DAY ascorbic acid, vitamin C, (VITAMIN C) 500 mg tablet Take 500 mg by mouth once daily. melatonin 10 mg cap Take 10 mg by mouth daily at bedtime. pantoprazole DR (PROTONIX) 40 mg tablet Take 1 tablet by mouth once daily. famotidine (PEPCID) 20 mg tablet Take 1 tablet by mouth daily at bedtime. Blood-Glucose Meter misc 1 Units once daily. Lancets lancets Use as instructed. Preferred insurance brand. blood sugar diagnostic (ONETOUCH ULTRA TEST) test strip Use as instructed. Insurance preferred brand. metFORMIN (GLUCOPHAGE) 1,000 mg tablet TAKE 1 TABLET TWICE DAILY WITH meals fluticasone (FLONASE) 50 mcg/actuation nasal spray Use 1 Harcourt in each nostril once daily. aspirin 81 mg chewable tablet Take 81 mg by mouth. carvedilol (COREG) 12.5 mg tablet Take 1 tablet by mouth twice daily. ferrous sulfate (IRON) 325 mg (65 mg iron) tablet Take 1 tablet by mouth daily with breakfast. albuterol HFA (VENTOLIN HFA) 90 mcg/actuation inhaler Inhale 2 Puffs as instructed every 4 hours as needed for Wheezing/Shortness of Breath. atorvastatin (LIPITOR) 20 mg tablet Take 1 tablet by mouth once daily. clopidogrel (PLAVIX) 75 mg tablet Take 1 tablet by mouth once daily. Cholecalciferol, Vitamin D3, 1,000 unit cap Take 1 capsule by mouth once daily. levonorgestrel (MIRENA) 20 mcg/24 hr (5 years) IUD 1 Each by INTRAUTERINE route continuous. blood sugar diagnostic (BLOOD GLUCOSE TEST) test strip Test blood sugar(s) one times daily. Dx: 250.00. Insulin: No Lancets lancets Test blood sugar(s) one times daily. Dx: 250.00. Insulin: No doxycycline (VIBRA-TABS) 100 mg tablet Take 100 mg by mouth twice daily. FLUARIX QUAD [id number], PF, 60 mcg (15 mcg x 4)/0.5 mL syrg FAMILY HISTORY Problem Relation Age of Onset - Cancer Mother /lung cancer/nonhodgkins lymphoma/Ovarian - Asthma Mother - Hyperlipidemia Mother - other (depressive disorder) Mother - Heart Father - Hyperlipidemia Father - Hypertension Father - other (cornary artery disease) Father heart attack and stents put in - Hypertension Brother - Blood Clots Brother Lungs - No Known Problems Brother - No Known Problems Brother - Osteoporosis Maternal Grandmother - Coronary Artery Disease Paternal Grandmother - Diabetes Paternal Grandmother - Coronary Artery Disease Paternal Grandfather - Hypertension Paternal Grandfather - Hypertension Son - Breast Cancer Other maternal great grandmother Social History Substance Use Topics - Smoking status: Never Smoker - Smokeless tobacco: Never Used - Alcohol use No Review of Systems Constitutional: Negative for chills, diaphoresis, fever and malaise/fatigue. HENT: Negative for congestion, ear discharge, ear pain, sinus pain and sore throat. Eyes: Negative for blurred vision, double vision, photophobia, discharge and redness. Respiratory: Negative for cough, shortness of breath and wheezing. Cardiovascular: Negative for chest pain, palpitations and leg swelling. Gastrointestinal: Positive for heartburn. Negative for abdominal pain, blood in stool, constipation, diarrhea, nausea and vomiting. Musculoskeletal: Positive for joint pain. Negative for back pain, myalgias and neck pain. Skin: Negative for itching and rash. Neurological: Negative for dizziness, tingling, tremors, sensory change, focal weakness, weakness and headaches. Psychiatric/Behavioral: Negative for depression. The patient is nervous/anxious. The patient does not have insomnia. BP 122/76 Pulse 72 Temp 36.8 ?C (98.2 ?F) Resp 16 Ht 165.1 cm (5' 5) Wt 102.3 kg (225 lb 9.6 oz) LMP 07/28/2018 (Approximate) BMI 37.54 kg/m? Objective Physical Exam Constitutional: She is oriented to person, place, and time and well-developed, well-nourished, and in no distress. HENT: Head: Normocephalic and atraumatic. Right Ear: Hearing, tympanic membrane, external ear and ear canal normal. Left Ear: Hearing, tympanic membrane, external ear and ear canal normal. Nose: Nose normal. Mouth/Throat: Oropharynx is clear and moist and mucous membranes are normal. Eyes: Pupils are equal, round, and reactive to light. Conjunctivae, EOM and lids are normal. Neck: Normal range of motion. Normal carotid pulses present. Carotid bruit is not present. No thyromegaly present. Cardiovascular: Normal rate, regular rhythm, normal heart sounds and intact distal pulses. No murmur heard. Pulses: Radial pulses are 2+ on the right side, and 2+ on the left side. Dorsalis pedis pulses are 2+ on the right side, and 2+ on the left side. Posterior tibial pulses are 2+ on the right side, and 2+ on the left side. Pulmonary/Chest: Effort normal and breath sounds normal. She has no wheezes. She has no rhonchi. She has no rales. Abdominal: Soft. Bowel sounds are normal. There is no tenderness. Musculoskeletal: Normal range of motion. Lymphadenopathy: She has no cervical adenopathy. Right: No supraclavicular adenopathy present. Left: No supraclavicular adenopathy present. Neurological: She is alert and oriented to person, place, and time. She has normal motor skills, normal sensation, normal strength and intact cranial nerves. She displays no weakness. No cranial nerve deficit. Gait normal. Gait normal. Reflex Scores: Achilles reflexes are 2+ on the right side and 2+ on the left side. Light touch and vibratory sensation intact to both feet. Proprioception testing of both feet normal. Microfilament exam normal. Skin: Skin is warm and dry. No lesion and no rash noted. She is not diaphoretic. Visual foot exam normal. No callus. No ingrown nail. Onychomycosis left great toe, growing out. No blister. No open areas. Psychiatric: Memory, affect and judgment normal. Feet: Shoes and socks removed, Are you having foot pain no, No deformities, ulcers, calluses, normal distal pulses, sensitive to 10 gm monofilament and vibratory perception normal. Component Latest Ref Rng AND Units 2018 WBC 4.8 - 10.8 thou/cmm 7.0 RBC 4.20 - 5.40 mil/cmm 4.37 HGB 12.0 - 16.0 g/dL 12.5 Hematocrit 37.0 - 47.0 % 37.5 MCV 81.0 - 99.0 fl 85.8 MCH 27.0 - 31.0 pg 28.6 MCHC 32.0 - 36.0 % 33.3 RDW 11.5 - 15.9 % 13.0 Platelet Count 150 - 400 thou/cmm 202 MPV 7.1 - 10.5 fl 10.5 Seg Neutrophil % 63.5 Lymphocyte % 26.1 Monocyte % 5.7 Eosinophil % 4.0 Basophil % 0.7 Abs. Neut(Anc) 3.00 - 5.67 thou/cmm 4.44 Abs. Lymph 1.50 - 3.65 thou/cmm 1.83 Abs. Hitchcock 0.20 - 1.00 thou/cmm 0.40 Abs. Eosin 0.00 - 0.41 thou/cmm 0.28 Abs. Baso 0.00 - 0.08 thou/cmm 0.05 Sodium 136 - 145 mEq/L 138 Potassium 3.5 - 5.1 mEq/L 3.9 Chloride 98 - 107 mEq/L 106 CO2 21 - 32 mEq/L 25 Glucose 70 - 99 mg/dL 147 (H) BUN 7 - 25 mg/dL 12 Creatinine 0.51 - 0.95 mg/dL 0.71 Calcium 8.5 - 10.1 mg/dL 9.1 Albumin 3.4 - 5.0 g/dL 3.9 Protein, Total 6.4 - 8.2 g/dL 7.2 AST 15 - 37 U/L 38 (H) ALT 14 - 63 U/L 45 Alkaline Phosphatase 46 - 116 U/L 108 Bilirubin, Total 0.2 - 1.0 mg/dL 0.6 Anion Gap 8 - 20 11 BUN/CREATININE RATIO 10 - 20 17 Component Latest Ref Rng AND Units 03/19/2018 Cholesterol, Total 0 - 199 mg/dL 127 Triglyceride 0 - 149 mg/dL 184 (H) HDL Cholesterol >40 mg/dL 34 LDL Cholesterol 0 - 150 mg/dL 56 CHOL/HDL 1.8 - 5.3 3.7 Risk Factor 3.7 Component Latest Ref Rng AND Units 10/28/2017 Creatinine Urine mg/dL 32.7 Microalbumin, Random 0.20 - 2.50 mg/dL 0.57 MA/Creat Ratio 0.10 - 30.00 mg/g 17.43 Component Latest Ref Rng AND Units 06/17/2017 10/28/2017 03/10/2018 Hemoglobin A1C 4.5 - 6.2 % 6.4 (A) 6.3 (H) 6.4 (H) Estimated Average Glucose mg/dl 134 137 ASSESSMENT/PLAN: 1. Type 2 diabetes mellitus without complication, without long-term current use of insulin (HCC) - ICD9: 250.00, ICD10: E11.9 (primary diagnosis) Controlled Hgb A1C tgoday is 6.4 - Continue current medications = Januvia 100 mg daily and metformin 1,000 mg BID - Blood glucose monitoring on a twice a day schedule - Encouraged regular aerobic exercise and weight loss - Follow up in August for diabetes visit. sooner should any other issues arise. - BP goal of <130/80 - LDL goal of <100 - HGBA1C B/O 2. Obstructive sleep apnea - ICD9: 327.23, ICD10: G47.33 Continue CPAP 3. Iron deficiency anemia, unspecified iron deficiency anemia type - ICD9: 280.9, ICD10: D50.9 Stable on ferrous sulfate daily 4. Atherosclerosis of [place] coronary artery without angina pectoris, unspecified whether [place] or transplanted heart - ICD9: 414.01, ICD10: I25.10 LDL at goal On Coreg, Plavix, asa, atorvastatin Continue f/u with cardiology 5. Restless leg syndrome - ICD9: 333.94, ICD10: G25.81 Stable on neurontin Failed mirapex and requip 6. Essential hypertension - ICD9: 401.9, ICD10: I10 Stable on Coreg Continue f/u with cardiology F/U 6 months Lester Lopez APRN.HECTOR JOHNSON Observed: 08/25/2018 Status: COMPLETED Source: [place] 3:40 PM [facility] REPOSITORY Office Visit (AGFAMPLE) MAHI TAN ([id number]) 1975 F Date Time Provider Department 08/25/18 3:40 PM LESTER LOPEZ (HECTOR) CHARLINE During your visit today, we recorded the following information about you: Temperature Pulse Respiration Blood pressure 98.2 degrees 72/minute 16/minute 122/76 Weight Height 102.3 kg 1.651 m Lester Lopez APRN.CNP 08/25/2018 5:54 PM Signed Subjective HPI Here today for diabetes follow-up visit. Patient has type 2 diabetes. Feeling well today, no concerns. Denies dizziness, chest pain, shortness of breath, changes in vision, fatigue, foot pain. Denies numbness and tingling in extremities. Denies polydipsia, polyphagia, polyuria. Feeling fairly good this past week, not as achy. Did have stye in left eye, eye doctor put her on antibiotic and it is getting better. Dr. Bhaskar Terrell, rheumatology - referring patient out to immunology Dr. Momin and infectious disease Dr. Nikolay Hi - 08/[address] Castaneda - EGD scheduled for beginning of September. Also going to get gastric emptying study done. Consulted with Dr. Ruiz for abnormal Pap - treated with diflucan, repeat Pap in a month Home Blood Sugars: only checks it if she's feeling off. Hasn't been checking for the last week or so Medication Compliance: Rarely forgets Low Blood Sugars: None Diet: Diabetic diet for the most part. Water and unsweetened tea. Exercise: Walks a lot Eye Exam: June 2018 Podiatry: n/a Tobacco use - never Alcohol use - none Pap done 07/2018 = ASCUS with positive HPV, referred to [facility], Dr. Ruiz RLS - On neurontin helps a lot. Helps her sleep. Tried Requip and Mirapex in the past and side effects were intolerable., PAST MEDICAL HISTORY Diagnosis Date - Abdominal pain - Abnormal liver ultrasound - Allergic rhinitis - Anxiety - Asthma no issues for several years - Bipolar 2 disorder (HCC) 11/21/2011 - CAD (coronary artery disease) - Calculus of gallbladder without mention of cholecystitis or obstruction 08/24/2009 - Cervical high risk human papillomavirus (HPV) DNA test positive - Common cold - Depressive disorder Dr. Cornell- [facility] - Diabetes (HCC) - Diarrhea - Double vessel coronary artery disease 2 stents - Elevated LFTs - Excessive or frequent menstruation Heavy periods Resolved - Female stress incontinence 01/13/2008 - Ganglion of joint 10/14/2007 - GERD (gastroesophageal reflux disease) - Hand pain - Hemorrhage of gastrointestinal tract, unspecified - Hepatosplenomegaly - History of intrauterine contraceptive device Mirena placed May 2015 Dr. Willy Schmid - Hyperlipidemia - Hypertension - Internal hemorrhoids without mention of complication - Irregular menstrual cycle Irregular periods Resolved - Irritable bowel syndrome Irritable bowel - Obesity - Obstructive sleep apnea Last PSG 07/22/18 = AHI 14.5 - Onychomycosis - Other specified acquired hypothyroidism - Ovarian cystic mass 06/07/2010 - Panic attack 07/18/2010 - Papanicolaou smear of cervix with atypical squamous cells of undetermined significance (ASC-US) - Paresthesia of hand - PLANTAR Fasciitis 07/15/2007 - PTSD (post-traumatic stress disorder) - Status post left heart catheterization 10/2014 PAST SURGICAL HISTORY Procedure Laterality Date - ANGIOPLASTY 11/23/14 [facility]-proximal LAD and proximal RCA 2 stents - CARDIAC CATHETERIZATION HX 11/20/14 [facility]-proximal RCA lesion - COLONOSCOP W/ OR W/O [facility] SPEC 06/09/14 Colonoscopy - COLONOSCOPY W/BX 08/13/07 - COLPOSCOPY (VAGINOSCOPY) 2006 Colposcopy - EXCIS PRIMARY GANGLION WRIST 11/04/07 LEFT WRIST, Dr. Alcantara - LAP CHOLECYSTECT/CHOLANGIOGRAPHY 09/05/2009 Normal IOC - LIGATE FALLOPIAN TUBE 10/1998 Tubal ligation, [facility] - PAST SURGICAL HISTORY OF Left 01/28/15 middle trigger finger release - S SLING BLADR HARVEY TOTL 4821 2013 monarc - THYROIDECTOMY 01/1994 goiter no cancer ALLERGIES Benedryl [Diphenhydramine]; Doxycycline; Imitrex [Sumatriptan Succinate]; Phenergan [Promethazine Hcl]; Tramadol MEDICATIONS gabapentin (NEURONTIN) 100 mg capsule Take 2 capsules by mouth daily at bedtime for 30 days. perflutren lipid microspheres (DEFINITY) 1.1 mg/mL injection (to be provided with echo procedure) Inject 1.3 mL intravenously as directed. levothyroxine (SYNTHROID) 175 mcg tablet Take 1 tablet by mouth once daily. JANUVIA 100 mg tablet TAKE 1 TABLET EVERY DAY ascorbic acid, vitamin C, (VITAMIN C) 500 mg tablet Take 500 mg by mouth once daily. melatonin 10 mg cap Take 10 mg by mouth daily at bedtime. pantoprazole DR (PROTONIX) 40 mg tablet Take 1 tablet by mouth once daily. famotidine (PEPCID) 20 mg tablet Take 1 tablet by mouth daily at bedtime. Blood-Glucose Meter misc 1 Units once daily. Lancets lancets Use as instructed. Preferred insurance brand. blood sugar diagnostic (ONETOUCH ULTRA TEST) test strip Use as instructed. Insurance preferred brand. metFORMIN (GLUCOPHAGE) 1,000 mg tablet TAKE 1 TABLET TWICE DAILY WITH meals fluticasone (FLONASE) 50 mcg/actuation nasal spray Use 1 [place]arcourt in each nostril once daily. aspirin 81 mg chewable tablet Take 81 mg by mouth. carvedilol (COREG) 12.5 mg tablet Take 1 tablet by mouth twice daily. ferrous sulfate (IRON) 325 mg (65 mg iron) tablet Take 1 tablet by mouth daily with breakfast. albuterol HFA (VENTOLIN HFA) 90 mcg/actuation inhaler Inhale 2 Puffs as instructed every 4 hours as needed for Wheezing/Shortness of Breath. atorvastatin (LIPITOR) 20 mg tablet Take 1 tablet by mouth once daily. clopidogrel (PLAVIX) 75 mg tablet Take 1 tablet by mouth once daily. Cholecalciferol, Vitamin D3, 1,000 unit cap Take 1 capsule by mouth once daily. levonorgestrel (MIRENA) 20 mcg/24 hr (5 years) IUD 1 Each by INTRAUTERINE route continuous. blood sugar diagnostic (BLOOD GLUCOSE TEST) test strip Test blood sugar(s) one times daily. Dx: 250.00. Insulin: No Lancets lancets Test blood sugar(s) one times daily. Dx: 250.00. Insulin: No doxycycline (VIBRA-TABS) 100 mg tablet Take 100 mg by mouth twice daily. FLUARIX QUAD [id number], PF, 60 mcg (15 mcg x 4)/0.5 mL syrg FAMILY HISTORY Problem Relation Age of Onset - Cancer Mother /lung cancer/nonhodgkins lymphoma/Ovarian - Asthma Mother - Hyperlipidemia Mother - other (depressive disorder) Mother - Heart Father - Hyperlipidemia Father - Hypertension Father - other (cornary artery disease) Father heart attack and stents put in - Hypertension Brother - Blood Clots Brother Lungs - No Known Problems Brother - No Known Problems Brother - Osteoporosis Maternal Grandmother - Coronary Artery Disease Paternal Grandmother - Diabetes Paternal Grandmother - Coronary Artery Disease Paternal Grandfather - Hypertension Paternal Grandfather - Hypertension Son - Breast Cancer Other maternal great grandmother Social History Substance Use Topics - Smoking status: Never Smoker - Smokeless tobacco: Never Used - Alcohol use No Review of Systems Constitutional: Negative for chills, diaphoresis, fever and malaise/fatigue. HENT: Negative for congestion, ear discharge, ear pain, sinus pain and sore throat. Eyes: Negative for blurred vision, double vision, photophobia, discharge and redness. Respiratory: Negative for cough, shortness of breath and wheezing. Cardiovascular: Negative for chest pain, palpitations and leg swelling. Gastrointestinal: Positive for heartburn. Negative for abdominal pain, blood in stool, constipation, diarrhea, nausea and vomiting. Musculoskeletal: Positive for joint pain. Negative for back pain, myalgias and neck pain. Skin: Negative for itching and rash. Neurological: Negative for dizziness, tingling, tremors, sensory change, focal weakness, weakness and headaches. Psychiatric/Behavioral: Negative for depression. The patient is nervous/anxious. The patient does not have insomnia. BP 122/76 Pulse 72 Temp 36.8 ?C (98.2 ?F) Resp 16 Ht 165.1 cm (5' 5) Wt 102.3 kg (225 lb 9.6 oz) LMP 07/28/2018 (Approximate) BMI 37.54 kg/m? Objective Physical Exam Constitutional: She is oriented to person, place, and time and well-developed, well-nourished, and in no distress. HENT: Head: Normocephalic and atraumatic. Right Ear: Hearing, tympanic membrane, external ear and ear canal normal. Left Ear: Hearing, tympanic membrane, external ear and ear canal normal. Nose: Nose normal. Mouth/Throat: Oropharynx is clear and moist and mucous membranes are normal. Eyes: Pupils are equal, round, and reactive to light. Conjunctivae, EOM and lids are normal. Neck: Normal range of motion. Normal carotid pulses present. Carotid bruit is not present. No thyromegaly present. Cardiovascular: Normal rate, regular rhythm, normal heart sounds and intact distal pulses. No murmur heard. Pulses: Radial pulses are 2+ on the right side, and 2+ on the left side. Dorsalis pedis pulses are 2+ on the right side, and 2+ on the left side. Posterior tibial pulses are 2+ on the right side, and 2+ on the left side. Pulmonary/Chest: Effort normal and breath sounds normal. She has no wheezes. She has no rhonchi. She has no rales. Abdominal: Soft. Bowel sounds are normal. There is no tenderness. Musculoskeletal: Normal range of motion. Lymphadenopathy: She has no cervical adenopathy. Right: No supraclavicular adenopathy present. Left: No supraclavicular adenopathy present. Neurological: She is alert and oriented to person, place, and time. She has normal motor skills, normal sensation, normal strength and intact cranial nerves. She displays no weakness. No cranial nerve deficit. Gait normal. Gait normal. Reflex Scores: Achilles reflexes are 2+ on the right side and 2+ on the left side. Light touch and vibratory sensation intact to both feet. Proprioception testing of both feet normal. Microfilament exam normal. Skin: Skin is warm and dry. No lesion and no rash noted. She is not diaphoretic. Visual foot exam normal. No callus. No ingrown nail. Onychomycosis left great toe, growing out. No blister. No open areas. Psychiatric: Memory, affect and judgment normal. Feet: Shoes and socks removed, Are you having foot pain no, No deformities, ulcers, calluses, normal distal pulses, sensitive to 10 gm monofilament and vibratory perception normal. Component Latest Ref Rng AND Units 2018 WBC 4.8 - 10.8 thou/cmm 7.0 RBC 4.20 - 5.40 mil/cmm 4.37 HGB 12.0 - 16.0 g/dL 12.5 Hematocrit 37.0 - 47.0 % 37.5 MCV 81.0 - 99.0 fl 85.8 MCH 27.0 - 31.0 pg 28.6 MCHC 32.0 - 36.0 % 33.3 RDW 11.5 - 15.9 % 13.0 Platelet Count 150 - 400 thou/cmm 202 MPV 7.1 - 10.5 fl 10.5 Seg Neutrophil % 63.5 Lymphocyte % 26.1 Monocyte % 5.7 Eosinophil % 4.0 Basophil % 0.7 Abs. Neut(Anc) 3.00 - 5.67 thou/cmm 4.44 Abs. Lymph 1.50 - 3.65 thou/cmm 1.83 Abs. Hitchcock 0.20 - 1.00 thou/cmm 0.40 Abs. Eosin 0.00 - 0.41 thou/cmm 0.28 Abs. Baso 0.00 - 0.08 thou/cmm 0.05 Sodium 136 - 145 mEq/L 138 Potassium 3.5 - 5.1 mEq/L 3.9 Chloride 98 - 107 mEq/L 106 CO2 21 - 32 mEq/L 25 Glucose 70 - 99 mg/dL 147 (H) BUN 7 - 25 mg/dL 12 Creatinine 0.51 - 0.95 mg/dL 0.71 Calcium 8.5 - 10.1 mg/dL 9.1 Albumin 3.4 - 5.0 g/dL 3.9 Protein, Total 6.4 - 8.2 g/dL 7.2 AST 15 - 37 U/L 38 (H) ALT 14 - 63 U/L 45 Alkaline Phosphatase 46 - 116 U/L 108 Bilirubin, Total 0.2 - 1.0 mg/dL 0.6 Anion Gap 8 - 20 11 BUN/CREATININE RATIO 10 - 20 17 Component Latest Ref Rng AND Units 03/19/2018 Cholesterol, Total 0 - 199 mg/dL 127 Triglyceride 0 - 149 mg/dL 184 (H) HDL Cholesterol >40 mg/dL 34 LDL Cholesterol 0 - 150 mg/dL 56 CHOL/HDL 1.8 - 5.3 3.7 Risk Factor 3.7 Component Latest Ref Rng AND Units 10/28/2017 Creatinine Urine mg/dL 32.7 Microalbumin, Random 0.20 - 2.50 mg/dL 0.57 MA/Creat Ratio 0.10 - 30.00 mg/g 17.43 Component Latest Ref Rng AND Units 06/17/2017 10/28/2017 03/10/2018 Hemoglobin A1C 4.5 - 6.2 % 6.4 (A) 6.3 (H) 6.4 (H) Estimated Average Glucose mg/dl 134 137 ASSESSMENT/PLAN: 1. Type 2 diabetes mellitus without complication, without long-term current use of insulin (HCC) - ICD9: 250.00, ICD10: E11.9 (primary diagnosis) Controlled Hgb A1C tgoday is 6.4 - Continue current medications = Januvia 100 mg daily and metformin 1,000 mg BID - Blood glucose monitoring on a twice a day schedule - Encouraged regular aerobic exercise and weight loss - Follow up in August for diabetes visit. sooner should any other issues arise. - BP goal of <130/80 - LDL goal of <100 - HGBA1C B/O 2. Obstructive sleep apnea - ICD9: 327.23, ICD10: G47.33 Continue CPAP 3. Iron deficiency anemia, unspecified iron deficiency anemia type - ICD9: 280.9, ICD10: D50.9 Stable on ferrous sulfate daily 4. Atherosclerosis of [place] coronary artery without angina pectoris, unspecified whether [place] or transplanted heart - ICD9: 414.01, ICD10: I25.10 LDL at goal On Coreg, Plavix, asa, atorvastatin Continue f/u with cardiology 5. Restless leg syndrome - ICD9: 333.94, ICD10: G25.81 Stable on neurontin Failed mirapex and requip 6. Essential hypertension - ICD9: 401.9, ICD10: I10 Stable on Coreg Continue f/u with cardiology F/U 6 months Lester Lopez APRN.[facility] Referring Provider: LESTER LOPEZ ([facility]) [[id number]] Allergies As of Date: 08/25/2018 Noted Allergy Reaction BENEDRYL (DIPHENHYDRAMINE) 07/01/2009 14 - Other: See Comments Comments: Makes her feel jittery IV- DOXYCYCLINE 08/13/2006 11 - Vomiting IMITREX (SUMATRIPTAN SUCCINATE) 12/06/2009 Comments: chest pain PHENERGAN (PROMETHAZINE HCL) 06/14/2010 5 - Intolerance Comments: restless legs IV- TRAMADOL 07/05/2017 5 - Intolerance Date Reviewed: 08/25/2018 Reviewed by: Lester Rivers ([facility]) Jessica - Fully Assessed Reason for Visit: Diabetes [34] Primary Visit Diagnosis:Type 2 diabetes mellitus without complication, without long-term current use of insulin (HCC) [E11.9] Other Visit Diagnoses:Obstructive sleep apnea [G47.33] Iron deficiency anemia, unspecified iron deficiency anemia type [D50.9] Atherosclerosis of [place] coronary artery without angina pectoris, unspecified whether [place] or transplanted heart [I25.10] Restless leg syndrome [G25.81] Essential hypertension [I10] Order(s):HGBA1C B/O [[id number]] Order #: [id number] Prescriptions as of 08/25/2018 Sig: CLINDAMYCIN HCL 150 MG CAPSULE 4 TIMES DAILY GABAPENTIN 100 MG CAPSULE Take 2 capsules by mouth janay* PERFLUTREN LIPID MICROSPHERES* Inject 1.3 mL intravenously a* LEVOTHYROXINE 175 MCG TABLET Take 1 tablet by mouth once d* JANUVIA 100 MG TABLET TAKE 1 TABLET EVERY DAY ASCORBIC ACID (VITAMIN C) 500* Take 500 mg by mouth once babar* MELATONIN 10 MG CAPSULE Take 10 mg by mouth daily at * PANTOPRAZOLE 40 MG TABLET,DEL* Take 1 tablet by mouth once d* FAMOTIDINE 20 MG TABLET Take 1 tablet by mouth daily * BLOOD-GLUCOSE METER 1 Units once daily. LANCETS Use as instructed. Preferred * BLOOD SUGAR DIAGNOSTIC STRIPS Use as instructed. Insurance * METFORMIN 1,000 MG TABLET TAKE 1 TABLET TWICE DAILY WIT* FLUTICASONE 50 MCG/ACTUATION * Use 1 Harcourt in each nostril o* ASPIRIN 81 MG CHEWABLE TABLET Take 81 mg by mouth. CARVEDILOL 12.5 MG TABLET Take 1 tablet by mouth twice * FERROUS SULFATE 325 MG (65 MG* Take 1 tablet by mouth daily * ALBUTEROL SULFATE HFA 90 MCG/* Inhale 2 Puffs as instructed * ATORVASTATIN 20 MG TABLET Take 1 tablet by mouth once d* CLOPIDOGREL 75 MG TABLET Take 1 tablet by mouth once d* CHOLECALCIFEROL (VITAMIN D3) * Take 1 capsule by mouth once * LEVONORGESTREL 20 MCG/24 HR (* 1 Each by INTRAUTERINE route * BLOOD SUGAR DIAGNOSTIC STRIPS Test blood sugar(s) one times* LANCETS Test blood sugar(s) one times* DOXYCYCLINE HYCLATE 100 MG TA* Take 100 mg by mouth twice da* FLUARIX QUAD 8340-5101 (PF) 6* Medication notes this encounter FLUARIX QUAD (PF) 60 MCG (15 MCG X 4)/0.5 ML IM SYRINGE >> Gabo Mcginnis CMA 08/25/2018 3:45 PM >> GABO MCGINNIS Aug 25, 2018 3:45 PM Updated shot record Problem List As Of Date 08/25/2018 Noted Resolved Chest pain, unspecified [R07.9] INVALID FOR*11/21/2011 Essential hypertension, benign [I10] INVALID FOR*11/21/2011 Shortness of breath [R06.02] INVALID FOR*11/21/2011 Restless legs syndrome (RLS) [G25.81] INVALID FOR* Insomnia [G47.00] INVALID FOR* PLANTAR Fasciitis [M72.2] INVALID FOR*11/21/2011 Diarrhea [R19.7] INVALID FOR*09/29/2014 Hemorrhage of gastrointestinal tract [K92.2] INVALID FOR* Internal hemorrhoids without mention of complic*INVALID FOR*11/21/2011 Ganglion of joint [M67.40] INVALID FOR*11/21/2011 Irritable bowel syndrome [K58.9] INVALID FOR* Papanicolaou smear of cervix with atypical squa*INVALID FOR* Cervical high risk human papillomavirus (HPV) D*INVALID FOR* Female stress incontinence [N39.3] INVALID FOR* Pain in limb [M79.609] INVALID FOR*11/21/2011 Calcaneal spur [M77.30] INVALID FOR*11/21/2011 Depressive disorder, not elsewhere classified [*INVALID FOR*11/21/2011 Microscopic hematuria [R31.29] INVALID FOR*11/21/2011 Pain in joint, pelvic region and thigh [M25.559]INVALID FOR*11/21/2011 Cholelithiasis NOS [K80.20] INVALID FOR*11/21/2011 Hypothyroid [E03.9] INVALID FOR* Ovarian cystic mass [N83.209] INVALID FOR*11/21/2011 Depression, major [F32.9] 11/21/2011 Panic attack [F41.0] INVALID FOR*11/21/2011 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] INVALID FOR* Backache, unspecified [M54.9] INVALID FOR*09/29/2014 Cervicalgia [M54.2] INVALID FOR*09/29/2014 Bipolar 2 disorder (HCC) [F31.81] INVALID FOR* Dysuria [R30.0] INVALID FOR*09/29/2014 Hematuria [R31.9] INVALID FOR* Urinary tract infection [N39.0] INVALID FOR*09/29/2014 Urgency of urination [R39.15] INVALID FOR*09/29/2014 Frequency of urination [R35.0] INVALID FOR*09/29/2014 Low back pain [M54.5] INVALID FOR* Family history of ovarian cancer [Z80.41] INVALID FOR* LADONNA (stress urinary incontinence, female) [N39.*INVALID FOR* Cystocele [RRR3177] INVALID FOR* Type 2 diabetes mellitus without complication (*INVALID FOR* Trigger middle finger of left hand [M65.332] INVALID FOR* Coronary atherosclerosis [I25.10] INVALID FOR* More... Essential hypertension [I10] INVALID FOR* Morbid obesity with body mass index of 40.0-44.*INVALID FOR* GERD (gastroesophageal reflux disease) [K21.9] INVALID FOR* Obstructive sleep apnea [G47.33] INVALID FOR* More... Iron deficiency concern [E61.1] INVALID FOR* Status post insertion of drug-eluting stent int*INVALID FOR* Family history of ischemic heart disease [Z82.4*INVALID FOR* Presence of drug coated stent in right coronary*INVALID FOR* Vitamin D insufficiency [E55.9] INVALID FOR* Sprain of lumbar region-BWC [S33.5XXA] INVALID FOR* Anterior cervical lymphadenopathy [R59.0] INVALID FOR* More... Axillary lymphadenopathy [R59.0] INVALID FOR*08/14/2016 More... Onychomycosis [B35.1] INVALID FOR* Mild intermittent asthma without complication [*INVALID FOR* Prolonged QT interval [R94.31] INVALID FOR* Chronic pain of left knee [M25.562, G89.29] INVALID FOR* Iron deficiency anemia [D50.9] INVALID FOR* Gastroesophageal reflux disease [K21.9] INVALID FOR* Family history of coronary artery disease [Z82.*INVALID FOR* Hyperlipidemia [E78.5] INVALID FOR* Obesity, Class II, BMI 35-39.9 E66.9 [E66.9] INVALID FOR* Asthma [J45.909] INVALID FOR* History of cholecystectomy [Z90.49] INVALID FOR* History of thyroidectomy [Z98.890] INVALID FOR* sign painter (current) use of antithrombotics/anti*INVALID FOR* sign painter (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 [Z79.82] INVALID FOR* 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*INVALID FOR* Sprain of ankle [S93.409A] INVALID FOR* Lymphadenopathy, generalized [R59.1] INVALID FOR* Pain in joint, multiple sites [M25.50] INVALID FOR* Positive LARISSA (antinuclear antibody) [R76.8] INVALID FOR* Abdominal pain [R10.9] Hepatosplenomegaly [R16.2] Elevated LFTs [R94.5] Disposition: Return in about 6 months (around 02/23/2019), or if symptoms worsen or fail to improve, for Diabetes. Follow-up and Disposition History Recorded Encounter Status:Closed by LESTER LOPEZ CNP on 08/25/18 EMERGENCY DEPARTMENT Observed: 08/21/2018 Status: F Source: [place] SUMMARY 3:56 PM [facility] REPOSITORY [facility] Medical Records Department [address] [place] [address] Emergency Department Summary 08/21/18 0728 MR#: [id number] Acct: [id number] Name: MAHI TAN Rep #: [id number] : 1975 43 From: Eulogio Casey MD PCP: ALVARO AlbrightC Status: DEP ER - ER Visit Summary Date of Service: 08/21/18 Chief Complaint: Left eye pain History of Present Illness: The patient is a 43 F with left upper eyelid pain and swelling. This started gradually over the last 3 days and was worse this morning. It started more towards the nasal side and has progressed over the upper lid. She does feel some discomfort around her entire left eye but the swelling and redness is exclusive to her upper lid. She reports some mild photophobia but denies any other vision changes. No double vision. No pain with eye movements. No fever or systemic symptoms. She does wear contact lenses but stopped wearing them 2 days ago. Physical Examination: Afebrile and vital signs unremarkable except for a blood pressure of 161/90. She is alert and oriented. No acute distress. No objective photophobia on exam. Pupil round and reactive. Extraocular movements normal. The eye itself appears unremarkable. The left upper lid is erythematous and edematous, more so towards the nasal side. No palpable masses or induration. Skin otherwise normal. No lymphadenopathy noted. Test Results: None indicated Emergency Department Course and Treatment: Patient likely has a blepharitis but she does have some signs and symptoms that she might be progressing to a periorbital cellulitis. She was treated with both erythromycin topical and clindamycin by mouth. Instructed about warm compresses. She will also use baby shampoo and water to clean the area. Follow-up with ophthalmology for recheck. Precautions were discussed. No contact lenses. Orbital cellulitis discussed and patient will return if she has any issues. Treatment Plan: As above Disposition: Discharge Impression: 1. Left upper lid blepharitis This note was generated with [employer] dictation software. It may contain incorrect words, spelling, and punctuation that were not noted in review of the chart prior to signing ED Disposition - Plan for ED Patient: Chief Complaint: Eye Problem Instructions: Treating Blepharitis: Self-Care Prescriptions: Clindamycin [Cleocin] 450 mg PO 4X/DAY 7 Days #63 cap Referrals: Alexsander Hill MD [STAFF PHYSICIAN] - What to do if you have Problems For any increased pain, shortness of breath, bleeding, nausea or vomiting, chest pain, or any unexpected problems, contact your Primary Care Provider. Call [facility] ([phone]) or report to the closest Emergency Room. Call 911 if necessary. 08/21/18 1556 <Electronically signed by Eulogio Casey MD> Date Eulogio Casey MD Cosigner Signature (If Indicated): Date CC: MANJINDER-Tita Lopez DISCHARGE INSTRUCTION Observed: 08/21/2018 Status: F Source: [place] 3:56 PM [facility] REPOSITORY [facility] Medical Records Department [address] [place] [address] Discharge Instruction 08/21/18 0728 MR#: [id number] Acct: [id number] Name: MAHI TAN Domenic Rep #: [id number] : 1975 43 From: Eulogio Casey MD PCP: HALLIE Albright Status: DEP ER ED Disposition - Plan for ED Patient: Chief Complaint: Eye Problem Instructions: Treating Blepharitis: Self-Care Prescriptions: Clindamycin [Cleocin] 450 mg PO 4X/DAY 7 Days #63 cap Referrals: Alexsander Hill MD [STAFF PHYSICIAN] - What to do if you have Problems For any increased pain, shortness of breath, bleeding, nausea or vomiting, chest pain, or any unexpected problems, contact your Primary Care Provider. Call [facility] ([phone]) or report to the closest Emergency Room. Call 911 if necessary. 08/21/18 1556 <Electronically signed by Eulogio Casey MD> Date Eulogio Casey MD Cosigner Signature (If Indicated): Date CC: HALLIE HEALY Observed: 08/21/2018 Status: COMPLETED Source: [facility] 12:00 AM CLINIC OTHER CAMPUS REPOSITORY Telephone (AGGASTW) MAHI TAN ([id number]) 1975 F Date Time Provider Department 08/21/18 RICKY CASTANEDA AGGASTW During your visit today, we recorded the following information about you: Ricky Castaneda MD 08/21/2018 2:24 PM Signed Tell pt that the labs I had her get done look fine. The cause for her elevated LFT's is likely fatty liver as we discussed in the office Thanks Gill Galicia 08/21/2018 2:51 PM Signed LVM for patient to return call. JONY Sawant 08/22/2018 9:02 AM Signed LVM. Sending letter. JONY Sawant 08/22/2018 9:09 AM Signed Patient called back and has been advised. Gill Galicia, [facility] Allergies As of Date: 08/21/2018 Noted Allergy Reaction BENEDRYL (DIPHENHYDRAMINE) 07/01/2009 14 - Other: See Comments Comments: Makes her feel jittery IV- DOXYCYCLINE 08/13/2006 11 - Vomiting IMITREX (SUMATRIPTAN SUCCINATE) 12/06/2009 Comments: chest pain PHENERGAN (PROMETHAZINE HCL) 06/14/2010 5 - Intolerance Comments: restless legs IV- TRAMADOL 07/05/2017 5 - Intolerance Date Reviewed: 08/20/2018 Reviewed by: Ewelina ([facility]) Daryl - Fully Assessed Reason for Visit: Follow Up Tests Results [770] Prescriptions as of 08/21/2018 Sig: GABAPENTIN 100 MG CAPSULE Take 2 capsules by mouth janay* PERFLUTREN LIPID MICROSPHERES* Inject 1.3 mL intravenously a* Patient not taking: Reported on 08/20/2018 LEVOTHYROXINE 175 MCG TABLET Take 1 tablet by mouth once d* JANUVIA 100 MG TABLET TAKE 1 TABLET EVERY DAY ASCORBIC ACID (VITAMIN C) 500* Take 500 mg by mouth once babar* MELATONIN 10 MG CAPSULE Take 10 mg by mouth daily at * PANTOPRAZOLE 40 MG TABLET,DEL* Take 1 tablet by mouth once d* FAMOTIDINE 20 MG TABLET Take 1 tablet by mouth daily * BLOOD-GLUCOSE METER 1 Units once daily. LANCETS Use as instructed. Preferred * BLOOD SUGAR DIAGNOSTIC STRIPS Use as instructed. Insurance * METFORMIN 1,000 MG TABLET TAKE 1 TABLET TWICE DAILY WIT* FLUTICASONE 50 MCG/ACTUATION * Use 1 Harcourt in each nostril o* ASPIRIN 81 MG CHEWABLE TABLET Take 81 mg by mouth. CARVEDILOL 12.5 MG TABLET Take 1 tablet by mouth twice * FERROUS SULFATE 325 MG (65 MG* Take 1 tablet by mouth daily * ALBUTEROL SULFATE HFA 90 MCG/* Inhale 2 Puffs as instructed * ATORVASTATIN 20 MG TABLET Take 1 tablet by mouth once d* CLOPIDOGREL 75 MG TABLET Take 1 tablet by mouth once d* CHOLECALCIFEROL (VITAMIN D3) * Take 1 capsule by mouth once * LEVONORGESTREL 20 MCG/24 HR (* 1 Each by INTRAUTERINE route * BLOOD SUGAR DIAGNOSTIC STRIPS Test blood sugar(s) one times* LANCETS Test blood sugar(s) one times* Problem List As Of Date 08/21/2018 Noted Resolved Chest pain, unspecified [R07.9] INVALID FOR*11/21/2011 Essential hypertension, benign [I10] INVALID FOR*11/21/2011 Shortness of breath [R06.02] INVALID FOR*11/21/2011 Restless legs syndrome (RLS) [G25.81] INVALID FOR* Insomnia [G47.00] INVALID FOR* PLANTAR Fasciitis [M72.2] INVALID FOR*11/21/2011 Diarrhea [R19.7] INVALID FOR*09/29/2014 Hemorrhage of gastrointestinal tract [K92.2] INVALID FOR* Internal hemorrhoids without mention of complic*INVALID FOR*11/21/2011 Ganglion of joint [M67.40] INVALID FOR*11/21/2011 Irritable bowel syndrome [K58.9] INVALID FOR* PAP SMEAR OF CERVIX W ASCUS [R87.610] INVALID FOR* Cervical high risk human papillomavirus (HPV) D*INVALID FOR* Female stress incontinence [N39.3] INVALID FOR* Pain in limb [M79.609] INVALID FOR*11/21/2011 Calcaneal spur [M77.30] INVALID FOR*11/21/2011 Depressive disorder, not elsewhere classified [*INVALID FOR*11/21/2011 Microscopic hematuria [R31.29] INVALID FOR*11/21/2011 Pain in joint, pelvic region and thigh [M25.559]INVALID FOR*11/21/2011 Cholelithiasis NOS [K80.20] INVALID FOR*11/21/2011 Hypothyroid [E03.9] INVALID FOR* Ovarian cystic mass [N83.209] INVALID FOR*11/21/2011 Depression, major [F32.9] 11/21/2011 Panic attack [F41.0] INVALID FOR*11/21/2011 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] INVALID FOR* Backache, unspecified [M54.9] INVALID FOR*09/29/2014 Cervicalgia [M54.2] INVALID FOR*09/29/2014 Bipolar 2 disorder (HCC) [F31.81] INVALID FOR* Dysuria [R30.0] INVALID FOR*09/29/2014 Hematuria [R31.9] INVALID FOR* Urinary tract infection [N39.0] INVALID FOR*09/29/2014 Urgency of urination [R39.15] INVALID FOR*09/29/2014 Frequency of urination [R35.0] INVALID FOR*09/29/2014 Low back pain [M54.5] INVALID FOR* Family history of ovarian cancer [Z80.41] INVALID FOR* LADONNA (stress urinary incontinence, female) [N39.*INVALID FOR* Cystocele [BSR1774] INVALID FOR* Type 2 diabetes mellitus without complication (*INVALID FOR* Trigger middle finger of left hand [M65.332] INVALID FOR* Coronary atherosclerosis [I25.10] INVALID FOR* More... Essential hypertension [I10] INVALID FOR* Morbid obesity with BMI of 40.0-44.9, adult (HC*INVALID FOR* GERD (gastroesophageal reflux disease) [K21.9] INVALID FOR* TONIO (obstructive sleep apnea) [G47.33] INVALID FOR* More... Iron deficiency concern [E61.1] INVALID FOR* Presence of drug coated stent in LAD coronary a*INVALID FOR* Family history of ischemic heart disease [Z82.4*INVALID FOR* Presence of drug coated stent in right coronary*INVALID FOR* Vitamin D insufficiency [E55.9] INVALID FOR* Sprain of lumbar region-BWC [S33.5XXA] INVALID FOR* Anterior cervical lymphadenopathy [R59.0] INVALID FOR* More... Axillary lymphadenopathy [R59.0] INVALID FOR*08/14/2016 More... Onychomycosis [B35.1] INVALID FOR* Mild intermittent asthma without complication [*INVALID FOR* Prolonged QT interval [R94.31] INVALID FOR* Chronic pain of left knee [M25.562, G89.29] INVALID FOR* Iron deficiency anemia [D50.9] INVALID FOR* Gastroesophageal reflux disease [K21.9] INVALID FOR* Family history of coronary artery disease [Z82.*INVALID FOR* Hyperlipidemia [E78.5] INVALID FOR* Obesity, Class II, BMI 35-39.9 E66.9 [E66.9] INVALID FOR* Asthma [J45.909] INVALID FOR* History of cholecystectomy [Z90.49] INVALID FOR* History of thyroidectomy [Z98.890] INVALID FOR* sign painter (current) use of antithrombotics/anti*INVALID FOR* alf (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 [Z79.82] INVALID FOR* alf (current) use of oral hypoglycemic dr*INVALID FOR* Sprain of ankle [S93.409A] INVALID FOR* Lymphadenopathy, generalized [R59.1] INVALID FOR* Pain in joint, multiple sites [M25.50] INVALID FOR* Positive LARISSA (antinuclear antibody) [R76.8] INVALID FOR* Abdominal pain [R10.9] Hepatosplenomegaly [R16.2] Elevated LFTs [R94.5] Letter Text [facility] - [address], [address] [place] [address] (tel) [phone] (fax) [email or web address] Ricky Castaneda MD Gastroenterology 08/22/2018 Mahi Sheth [address] [facility] [address] Dear Ms. Tan My office has been unsuccessful in trying to contact you to give you results/schedule an appointment. Please call the office at [phone]. Sincerely, Ricky Castaneda MD Encounter Status:Closed by GILL GALICIA on 08/22/18 PROGRESS Observed: 08/20/2018 Status: COMPLETED Source: [place] 2:23 PM CLINIC OTHER CAMPUS REPOSITORY HNO ID: [id number] Author: Kavitha Terrell Service: (none) Author Type: Physician Type: Progress Notes Filed: 08/20/2018 6:25 PM Note Text: RHEUMATOLOGY PROGRESS NOTE Patient is here for a follow up visit for Patient presents with: Results: discuss labs from 07/23/2018. HPI: Mahi Tan is a 43 year old female who presents with LAD. She continues to have bloating. Undergoing GI evaluation. Chest pain is better. She is having sinus infections and eye lid swelling. Brief Rheumatological history - Mahi Tan is a 42 year old female who presents with enlarged lymph nodes. In 2017, she started to swelling of LN without any co existant infection. Imaging and biopsy was done. She then had bl knee pain and was on NSAIDs which helped. 6 months ago, recurrent LAD - neck, occipital- had CT neck and had LAD. CT abd for kidney pain and had LAD. She also has joint pain over hands, toes. Hips and Low back is tender to touch. Extreme fatigue intermittently. Sometimes knees will swell. No AM stiffness. Some gelling phenomenon. Dry mouth,mucous membranes sloughing off. Sores in the nose. She also saw schedule announcer in 11-09 but no clear diagnosis was made at that time. H/o kidney stones. She was told that she had swollen liver and spleen Fatty liver, DM2, hypothyroidism, CAD, 2 stents when she was 39 ?ASCUS with positive HPV ? Family history of autoimmune disease: none Father had CAD <50 years. Mother had NHL, lung cancer and cervical cancer Smoking status: Tobacco Use: Never ? ? Interval Review of Systems CONSTITUTIONAL: Recent Weight change: No Fever: No EYES: Dryness in nose: No Dryness of mouth: No Oral ulcers: No CARDIOVASCULAR: Pain in chest: No RESPIRATORY: Shortness of breath: No Cough: No GASTROINTESTINAL: Nausea: No Vomiting: No Changes in bowel movements: No Jaundice: No Heartburn: No MUSCULOSKELETAL: Per HPI INTEGUMENTARY: Rash: No HEMATOLOGIC/LYMPHATIC: Anemia: No NEUROLOGICAL SYSTEM: Headaches: No Sensitivity or pain of hands and/or feet: No PSYCHIATRIC: Anxiety: No Poor sleep: No PAST MEDICAL HISTORY Diagnosis Date - Abdominal pain - Abnormal liver ultrasound - Allergic rhinitis - Anxiety - Asthma no issues for several years - Bipolar 2 disorder (HCC) 11/21/2011 - CAD (coronary artery disease) - Calculus of gallbladder without mention of cholecystitis or obstruction 08/24/2009 - Cervical high risk human papillomavirus (HPV) DNA test positive - Common cold - Depressive disorder Dr. Cornell- [facility] - Diabetes (HCC) - Diarrhea - Double vessel coronary artery disease 2 stents - Elevated LFTs - Excessive or frequent menstruation Heavy periods Resolved - Female stress incontinence 01/13/2008 - Ganglion of joint 10/14/2007 - GERD (gastroesophageal reflux disease) - Hand pain - Hemorrhage of gastrointestinal tract, unspecified - Hepatosplenomegaly - History of intrauterine contraceptive device Mirena placed May 2015 Dr. Willy Schmid - Hyperlipidemia - Hypertension - Internal hemorrhoids without mention of complication - Irregular menstrual cycle Irregular periods Resolved - Irritable bowel syndrome Irritable bowel - Obesity - Obstructive sleep apnea Last PSG 07/22/18 = AHI 14.5 - Onychomycosis - Other specified acquired hypothyroidism - Ovarian cystic mass 06/07/2010 - Panic attack 07/18/2010 - Papanicolaou smear of cervix with atypical squamous cells of undetermined significance (ASC-US) - Paresthesia of hand - PLANTAR Fasciitis 07/15/2007 - PTSD (post-traumatic stress disorder) - Status post left heart catheterization 10/2014 PAST SURGICAL HISTORY Procedure Laterality Date - ANGIOPLASTY 11/23/14 [facility]-proximal LAD and proximal RCA 2 stents - CARDIAC CATHETERIZATION HX 11/20/14 [facility]-proximal RCA lesion - COLONOSCOP W/ OR W/O BRSH SPEC 06/09/14 Colonoscopy - COLONOSCOPY W/BX 08/13/07 - COLPOSCOPY (VAGINOSCOPY) 2006 Colposcopy - EXCIS PRIMARY GANGLION WRIST 11/04/07 LEFT WRIST, Dr. Alcantara - LAP CHOLECYSTECT/CHOLANGIOGRAPHY 09/05/2009 Normal IOC - LIGATE FALLOPIAN TUBE 10/1998 Tubal ligation, [facility] - PAST SURGICAL HISTORY OF Left 01/28/15 middle trigger finger release - S [facility] DANIELLE CRAMERTD [employer] 4821 2013 [facility] - THYROIDECTOMY 01/1994 goiter no cancer History Review: I have reviewed and modified as needed, the following during this visit: Allergies, Past Medical History, Past Surgical History, Past Family History, Past Social History. BP 118/74 Pulse 80 Temp 36.9 ?C (98.5 ?F) Ht 165.1 cm (5' 5) LMP 07/28/2018 (Approximate) BMI 37.44 kg/m? Physical Exam GENERAL: Well appearing, alert, comfortable, in no acute distress, well-hydrated, well nourished. HEENT: Negative for external ears normal. Canals are clear. Both TMs visualized and are normal. Eye Exam normal. External nose normal, no nasal ulcer or throat ulcer. Left eyelid swelling. NECK: NECK Supple, no adenopathy; thyroid symmetric, normal size, no bruits CARDIAC: regular rate and rhythm, No murmur asculated. and Equal peripheral pulses RESPIRATORY: Lungs clear to auscultation. No wheezing, rhonchi, rales VASCULAR: RRR without murmur, gallop, or rubs. No ectopy. NEURO: Motor and sensory exam normal MOTOR: Normal; including tone, gait, stressed gait, power and coordination. SKIN: Negative for alopecia, skin rash, malar rash, skin lesion, skin ulcer, pits, thickening, color changes, telangiectasias, nail changes, nail ridging, nail pitting, onycholysis MUSCULOSKELETAL: DIPS: Normal PIPS: Normal MCPs: Normal Wrists: Normal Elbows: Normal Shoulders: Normal C-Spine: Normal Hips: Normal Knees: Normal Ankles: Normal MTPs / Toes: Normal Arches: Normal Lab Results: Glucose 147 2018 ALT 45 2018 WBC 7.0 2018 Hemoglobin 12.5 2018 Platelet Count 202 2018 WSR 9 07/23/2018 CRP 0.37 07/23/2018 Serology: 2017 LARISSA 1:160, RF normal C3 and C4 elevated, IgM low Normal hepatitis panel serum electrophoresis, normal rheumatoid factor, NC 3, MPO, ANCA, double-stranded DNA, PRODUCE FIELD MERCHANDISER, SSA, SSB, HIV, Histoplasma antigen in the urine, Limon, celiac antibodies, serum SIOBHAN Radiology: MICROSCOPIC DIAGNOSIS: ??A: MEDIASTINUM:??BENIGN THYMIC TISSUE ??B: THYROID LOBE, RIGHT: CHRONIC THYROIDITIS ??C: PARATRACHEAL REGION, RIGHT:??LYMPHOID TISSUE ??D: MEDIASTINAL REGION:??THYMIC TISSUE WITH FOCAL GERMINAL CENTER ?FORMATION ??E: THYROID LOBE, RIGHT: ANUJ'S THYROIDITIS ??F: THYROID LOBE, LEFT: 1. ANUJ'S THYROIDITIS ? 2. PORTION OF PARATHYROID ? 08/07/16 - Biopsy of right neck mass, [facility]. Hi [facility], benign reactive lymph node.DIAGNOSIS: Flow Cytometry Analysis for Lymphoproliferative Disorders: ?There is no evidence of a B-cell or T-cell lymphoproliferative disorder. 03/01/18 CT abd/pelvis - hepatosplenomegaly a few borderline mildly enlarged periaortic retroperitoneal, inguinal lymph nodes 03/17/18 US head/neck - Lymph nodes bilateral neck and left occipital region, appeared normal Assessment and Plan (R59.1) Lymphadenopathy, generalized (primary encounter diagnosis) (R76.8) Positive LARISSA (antinuclear antibody) (R16.2) Hepatosplenomegaly 43-year-old very pleasant female is here for follow up for positive LARISSA in the setting of cervical, occipital, abdominal lymphadenopathy and joint pain. Patient also reports sicca symptoms and significant unintentional weight loss. ? Her presentation is concerning for a systemic inflammatory disease like lupus, Sjogren's syndrome other etiologies like sarcoidosis inflammatory arthritis IgG for related disease etc. however chronic infectious or malignancy would still be in the differential. ? C3, C4 are elevated. Expected to be low in active autoimmune diseases like lupus. She has family history of malignancy and therefore if the following workup is negative a formal evaluation by infectious disease/hematology oncology would be reasonable. Chronic fungal or mycobacterial infection is another possibility however she lacks clinical features. Chest x-ray did not show hilar lymphadenopathy. No significant hematological abnormalities noted. However she reports having liver and spleen enlargement could be related to fatty liver. She is getting evaluated by GI. Low IgM level - evaluation by Dr. Momin I will refer her to infectious disease for evaluation of other potential infectious causes. Office Visit on 08/20/18 -CONSULT TO INFECTIOUS DISEASES -CONSULT TO ALLERGY/IMMUNOLOGY No orders of the defined types were placed in this encounter. Return in about 7 weeks (around 10/08/2018) for discuss lab results. Kavitha Terrell MD CNOV Observed: 08/20/2018 Status: COMPLETED Source: [place] 1:45 PM CLINIC OTHER CAMPUS REPOSITORY Office Visit ([facility]ATH) MAHI TAN ([id number]) 1975 F Date Time Provider Department 08/20/18 1:45 PM KAVITHA TERRELL During your visit today, we recorded the following information about you: Temperature Pulse Blood pressure Height 98.5 degrees 80/minute 118/74 1.651 m Kavitha Terrell MD 08/20/2018 6:25 PM Signed RHEUMATOLOGY PROGRESS NOTE Patient is here for a follow up visit for Patient presents with: Results: discuss labs from 07/23/2018. HPI: Mahi Tan is a 43 year old female who presents with LAD. She continues to have bloating. Undergoing GI evaluation. Chest pain is better. She is having sinus infections and eye lid swelling. Brief Rheumatological history - Mahi Tan is a 42 year old female who presents with enlarged lymph nodes. In 2017, she started to swelling of LN without any co existant infection. Imaging and biopsy was done. She then had bl knee pain and was on NSAIDs which helped. 6 months ago, recurrent LAD - neck, occipital- had CT neck and had LAD. CT abd for kidney pain and had LAD. She also has joint pain over hands, toes. Hips and Low back is tender to touch. Extreme fatigue intermittently. Sometimes knees will swell. No AM stiffness. Some gelling phenomenon. Dry mouth,mucous membranes sloughing off. Sores in the nose. She also saw schedule announcer in 11-09 but no clear diagnosis was made at that time. H/o kidney stones. She was told that she had swollen liver and spleen Fatty liver, DM2, hypothyroidism, CAD, 2 stents when she was 39 ?ASCUS with positive HPV ? Family history of autoimmune disease: none Father had CAD <50 years. Mother had NHL, lung cancer and cervical cancer Smoking status: Tobacco Use: Never ? ? Interval Review of Systems CONSTITUTIONAL: Recent Weight change: No Fever: No EYES: Dryness in nose: No Dryness of mouth: No Oral ulcers: No CARDIOVASCULAR: Pain in chest: No RESPIRATORY: Shortness of breath: No Cough: No GASTROINTESTINAL: Nausea: No Vomiting: No Changes in bowel movements: No Jaundice: No Heartburn: No MUSCULOSKELETAL: Per HPI INTEGUMENTARY: Rash: No HEMATOLOGIC/LYMPHATIC: Anemia: No NEUROLOGICAL SYSTEM: Headaches: No Sensitivity or pain of hands and/or feet: No PSYCHIATRIC: Anxiety: No Poor sleep: No PAST MEDICAL HISTORY Diagnosis Date - Abdominal pain - Abnormal liver ultrasound - Allergic rhinitis - Anxiety - Asthma no issues for several years - Bipolar 2 disorder (HCC) 11/21/2011 - CAD (coronary artery disease) - Calculus of gallbladder without mention of cholecystitis or obstruction 08/24/2009 - Cervical high risk human papillomavirus (HPV) DNA test positive - Common cold - Depressive disorder Dr. Cornell- [facility] - Diabetes (HCC) - Diarrhea - Double vessel coronary artery disease 2 stents - Elevated LFTs - Excessive or frequent menstruation Heavy periods Resolved - Female stress incontinence 01/13/2008 - Ganglion of joint 10/14/2007 - GERD (gastroesophageal reflux disease) - Hand pain - Hemorrhage of gastrointestinal tract, unspecified - Hepatosplenomegaly - History of intrauterine contraceptive device Mirena placed May 2015 Dr. Willy Schmid - Hyperlipidemia - Hypertension - Internal hemorrhoids without mention of complication - Irregular menstrual cycle Irregular periods Resolved - Irritable bowel syndrome Irritable bowel - Obesity - Obstructive sleep apnea Last PSG 07/22/18 = AHI 14.5 - Onychomycosis - Other specified acquired hypothyroidism - Ovarian cystic mass 06/07/2010 - Panic attack 07/18/2010 - Papanicolaou smear of cervix with atypical squamous cells of undetermined significance (ASC-US) - Paresthesia of hand - PLANTAR Fasciitis 07/15/2007 - PTSD (post-traumatic stress disorder) - Status post left heart catheterization 10/2014 PAST SURGICAL HISTORY Procedure Laterality Date - ANGIOPLASTY 11/23/14 [facility]-proximal LAD and proximal RCA 2 stents - CARDIAC CATHETERIZATION HX 11/20/14 [facility]-proximal RCA lesion - COLONOSCOP W/ OR W/O BRSH SPEC 06/09/14 Colonoscopy - COLONOSCOPY W/BX 08/13/07 - COLPOSCOPY (VAGINOSCOPY) 2006 Colposcopy - EXCIS PRIMARY GANGLION WRIST 11/04/07 LEFT WRIST, Dr. Alcantara - LAP CHOLECYSTECT/CHOLANGIOGRAPHY 09/05/2009 Normal IOC - LIGATE FALLOPIAN TUBE 10/1998 Tubal ligation, [facility] - PAST SURGICAL HISTORY OF Left 01/28/15 middle trigger finger release - S SLING BLADR HARVEY TOTL 4821 2013 monarc - THYROIDECTOMY 01/1994 goiter no cancer History Review: I have reviewed and modified as needed, the following during this visit: Allergies, Past Medical History, Past Surgical History, Past Family History, Past Social History. BP 118/74 Pulse 80 Temp 36.9 ?C (98.5 ?F) Ht 165.1 cm (5' 5) LMP 07/28/2018 (Approximate) BMI 37.44 kg/m? Physical Exam GENERAL: Well appearing, alert, comfortable, in no acute distress, well-hydrated, well nourished. HEENT: Negative for external ears normal. Canals are clear. Both TMs visualized and are normal. Eye Exam normal. External nose normal, no nasal ulcer or throat ulcer. Left eyelid swelling. NECK: NECK Supple, no adenopathy; thyroid symmetric, normal size, no bruits CARDIAC: regular rate and rhythm, No murmur asculated. and Equal peripheral pulses RESPIRATORY: Lungs clear to auscultation. No wheezing, rhonchi, rales VASCULAR: RRR without murmur, gallop, or rubs. No ectopy. NEURO: Motor and sensory exam normal MOTOR: Normal; including tone, gait, stressed gait, power and coordination. SKIN: Negative for alopecia, skin rash, malar rash, skin lesion, skin ulcer, pits, thickening, color changes, telangiectasias, nail changes, nail ridging, nail pitting, onycholysis MUSCULOSKELETAL: DIPS: Normal PIPS: Normal MCPs: Normal Wrists: Normal Elbows: Normal Shoulders: Normal C-Spine: Normal Hips: Normal Knees: Normal Ankles: Normal MTPs / Toes: Normal Arches: Normal Lab Results: Glucose 147 2018 ALT 45 2018 WBC 7.0 2018 Hemoglobin 12.5 2018 Platelet Count 202 2018 WSR 9 07/23/2018 CRP 0.37 07/23/2018 Serology: 2017 LARISSA 1:160, RF normal C3 and C4 elevated, IgM low Normal hepatitis panel serum electrophoresis, normal rheumatoid factor, NC 3, MPO, ANCA, double-stranded DNA, PRODUCE FIELD MERCHANDISER, SSA, SSB, HIV, Histoplasma antigen in the urine, Lim[place], celiac antibodies, serum SIOBHAN Radiology: MICROSCOPIC DIAGNOSIS: ??A: MEDIASTINUM:??BENIGN THYMIC TISSUE ??B: THYROID LOBE, RIGHT: CHRONIC THYROIDITIS ??C: PARATRACHEAL REGION, RIGHT:??LYMPHOID TISSUE ??D: MEDIASTINAL REGION:??THYMIC TISSUE WITH FOCAL GERMINAL CENTER ?FORMATION ??E: THYROID LOBE, RIGHT: ANUJ'S THYROIDITIS ??F: THYROID LOBE, LEFT: 1. ANUJ'S THYROIDITIS ? 2. PORTION OF PARATHYROID ? 08/07/16 - Biopsy of right neck mass, Dr. Hi [facility], benign reactive lymph node.DIAGNOSIS: Flow Cytometry Analysis for Lymphoproliferative Disorders: ?There is no evidence of a B-cell or T-cell lymphoproliferative disorder. 03/01/18 CT abd/pelvis - hepatosplenomegaly a few borderline mildly enlarged periaortic retroperitoneal, inguinal lymph nodes 6/25/18 US head/neck - Lymph nodes bilateral neck and left occipital region, appeared normal Assessment and Plan (R59.1) Lymphadenopathy, generalized (primary encounter diagnosis) (R76.8) Positive LARISSA (antinuclear antibody) (R16.2) Hepatosplenomegaly 43-year-old very pleasant female is here for follow up for positive LARISSA in the setting of cervical, occipital, abdominal lymphadenopathy and joint pain. Patient also reports sicca symptoms and significant unintentional weight loss. ? Her presentation is concerning for a systemic inflammatory disease like lupus, Sjogren's syndrome other etiologies like sarcoidosis inflammatory arthritis IgG for related disease etc. however chronic infectious or malignancy would still be in the differential. ? C3, C4 are elevated. Expected to be low in active autoimmune diseases like lupus. She has family history of malignancy and therefore if the following workup is negative a formal evaluation by infectious disease/hematology oncology would be reasonable. Chronic fungal or mycobacterial infection is another possibility however she lacks clinical features. Chest x-ray did not show hilar lymphadenopathy. No significant hematological abnormalities noted. However she reports having liver and spleen enlargement could be related to fatty liver. She is getting evaluated by GI. Low IgM level - evaluation by Dr. Momin I will refer her to infectious disease for evaluation of other potential infectious causes. Office Visit on 08/20/18 -CONSULT TO INFECTIOUS DISEASES -CONSULT TO ALLERGY/IMMUNOLOGY No orders of the defined types were placed in this encounter. Return in about 7 weeks (around 10/08/2018) for discuss lab results. Kavitha Terrell MD Referring Provider: KAVITHA TERRELL [[id number]] Allergies As of Date: 08/20/2018 Noted Allergy Reaction BENEDRYL (DIPHENHYDRAMINE) 07/01/2009 14 - Other: See Comments Comments: Makes her feel jittery IV- DOXYCYCLINE 08/13/2006 11 - Vomiting IMITREX (SUMATRIPTAN SUCCINATE) 12/06/2009 Comments: chest pain PHENERGAN (PROMETHAZINE HCL) 06/14/2010 5 - Intolerance Comments: restless legs IV- TRAMADOL 07/05/2017 5 - Intolerance Date Reviewed: 08/20/2018 Reviewed by: Ewelina Brito - Fully Assessed Reason for Visit: Results [95] Cmt: discuss labs from 07/23/2018. Primary Visit Diagnosis:Lymphadenopathy, generalized [R59.1] Other Visit Diagnoses:Positive LARISSA (antinuclear antibody) [R76.8] Hepatosplenomegaly [R16.2] Order(s):CONSULT TO INFECTIOUS DISEASES [9007] Order #: [id number]: 1 CONSULT TO ALLERGY/IMMUNOLOGY [9001] Order #: [id number]: 1 Prescriptions as of 08/20/2018 Sig: GABAPENTIN 100 MG CAPSULE Take 2 capsules by mouth janay* LEVOTHYROXINE 175 MCG TABLET Take 1 tablet by mouth once d* JANUVIA 100 MG TABLET TAKE 1 TABLET EVERY DAY ASCORBIC ACID (VITAMIN C) 500* Take 500 mg by mouth once babar* MELATONIN 10 MG CAPSULE Take 10 mg by mouth daily at * PANTOPRAZOLE 40 MG TABLET,DEL* Take 1 tablet by mouth once d* FAMOTIDINE 20 MG TABLET Take 1 tablet by mouth daily * BLOOD-GLUCOSE METER 1 Units once daily. LANCETS Use as instructed. Preferred * BLOOD SUGAR DIAGNOSTIC STRIPS Use as instructed. Insurance * METFORMIN 1,000 MG TABLET TAKE 1 TABLET TWICE DAILY WIT* FLUTICASONE 50 MCG/ACTUATION * Use 1 [place] in each nostril o* ASPIRIN 81 MG CHEWABLE TABLET Take 81 mg by mouth. CARVEDILOL 12.5 MG TABLET Take 1 tablet by mouth twice * FERROUS SULFATE 325 MG (65 MG* Take 1 tablet by mouth daily * ALBUTEROL SULFATE HFA 90 MCG/* Inhale 2 Puffs as instructed * ATORVASTATIN 20 MG TABLET Take 1 tablet by mouth once d* CLOPIDOGREL 75 MG TABLET Take 1 tablet by mouth once d* CHOLECALCIFEROL (VITAMIN D3) * Take 1 capsule by mouth once * LEVONORGESTREL 20 MCG/24 HR (* 1 Each by INTRAUTERINE route * BLOOD SUGAR DIAGNOSTIC STRIPS Test blood sugar(s) one times* LANCETS Test blood sugar(s) one times* PERFLUTREN LIPID MICROSPHERES* Inject 1.3 mL intravenously a* Patient not taking: Reported on 08/20/2018 Problem List As Of Date 08/20/2018 Noted Resolved Chest pain, unspecified [R07.9] INVALID FOR*11/21/2011 Essential hypertension, benign [I10] INVALID FOR*11/21/2011 Shortness of breath [R06.02] INVALID FOR*11/21/2011 Restless legs syndrome (RLS) [G25.81] INVALID FOR* Insomnia [G47.00] INVALID FOR* PLANTAR Fasciitis [M72.2] INVALID FOR*11/21/2011 Diarrhea [R19.7] INVALID FOR*09/29/2014 Hemorrhage of gastrointestinal tract [K92.2] INVALID FOR* Internal hemorrhoids without mention of complic*INVALID FOR*11/21/2011 Ganglion of joint [M67.40] INVALID FOR*11/21/2011 Irritable bowel syndrome [K58.9] INVALID FOR* PAP SMEAR OF CERVIX W ASCUS [R87.610] INVALID FOR* Cervical high risk human papillomavirus (HPV) D*INVALID FOR* Female stress incontinence [N39.3] INVALID FOR* Pain in limb [M79.609] INVALID FOR*11/21/2011 Calcaneal spur [M77.30] INVALID FOR*11/21/2011 Depressive disorder, not elsewhere classified [*INVALID FOR*11/21/2011 Microscopic hematuria [R31.29] INVALID FOR*11/21/2011 Pain in joint, pelvic region and thigh [M25.559]INVALID FOR*11/21/2011 Cholelithiasis NOS [K80.20] INVALID FOR*11/21/2011 Hypothyroid [E03.9] INVALID FOR* Ovarian cystic mass [N83.209] INVALID FOR*11/21/2011 Depression, major [F32.9] 11/21/2011 Panic attack [F41.0] INVALID FOR*11/21/2011 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] INVALID FOR* Backache, unspecified [M54.9] INVALID FOR*09/29/2014 Cervicalgia [M54.2] INVALID FOR*09/29/2014 Bipolar 2 disorder (HCC) [F31.81] INVALID FOR* Dysuria [R30.0] INVALID FOR*09/29/2014 Hematuria [R31.9] INVALID FOR* Urinary tract infection [N39.0] INVALID FOR*09/29/2014 Urgency of urination [R39.15] INVALID FOR*09/29/2014 Frequency of urination [R35.0] INVALID FOR*09/29/2014 Low back pain [M54.5] INVALID FOR* Family history of ovarian cancer [Z80.41] INVALID FOR* LADONNA (stress urinary incontinence, female) [N39.*INVALID FOR* Cystocele [UOT5494] INVALID FOR* Type 2 diabetes mellitus without complication (*INVALID FOR* Trigger middle finger of left hand [M65.332] INVALID FOR* Coronary atherosclerosis [I25.10] INVALID FOR* More... Essential hypertension [I10] INVALID FOR* Morbid obesity with BMI of 40.0-44.9, adult (HC*INVALID FOR* GERD (gastroesophageal reflux disease) [K21.9] INVALID FOR* TONIO (obstructive sleep apnea) [G47.33] INVALID FOR* More... Iron deficiency concern [E61.1] INVALID FOR* Presence of drug coated stent in LAD coronary a*INVALID FOR* Family history of ischemic heart disease [Z82.4*INVALID FOR* Presence of drug coated stent in right coronary*INVALID FOR* Vitamin D insufficiency [E55.9] INVALID FOR* Sprain of lumbar region-BWC [S33.5XXA] INVALID FOR* Anterior cervical lymphadenopathy [R59.0] INVALID FOR* More... Axillary lymphadenopathy [R59.0] INVALID FOR*08/14/2016 More... Onychomycosis [B35.1] INVALID FOR* Mild intermittent asthma without complication [*INVALID FOR* Prolonged QT interval [R94.31] INVALID FOR* Chronic pain of left knee [M25.562, G89.29] INVALID FOR* Iron deficiency anemia [D50.9] INVALID FOR* Gastroesophageal reflux disease [K21.9] INVALID FOR* Family history of coronary artery disease [Z82.*INVALID FOR* Hyperlipidemia [E78.5] INVALID FOR* Obesity, Class II, BMI 35-39.9 E66.9 [E66.9] INVALID FOR* Asthma [J45.909] INVALID FOR* History of cholecystectomy [Z90.49] INVALID FOR* History of thyroidectomy [Z98.890] INVALID FOR* sign painter (current) use of antithrombotics/anti*INVALID FOR* sign painter (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 [Z79.82] INVALID FOR* 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*INVALID FOR* Sprain of ankle [S93.409A] INVALID FOR* Lymphadenopathy, generalized [R59.1] INVALID FOR* Pain in joint, multiple sites [M25.50] INVALID FOR* Positive LARISSA (antinuclear antibody) [R76.8] INVALID FOR* Abdominal pain [R10.9] Hepatosplenomegaly [R16.2] Elevated LFTs [R94.5] Disposition: Return in about 7 weeks (around 10/08/2018) for discuss lab results. Follow-up and Disposition History Recorded Questionnaire: ALIZA PELAYO YEARLY ADL ASSESSMENT Toileting -> Independent Bathing -> Independent Upper Body Dressing -> Independent Lower Body Dressing -> Independent Grooming/Hygiene -> Independent Self Feeding -> Independent Home Management (laundry/cleaning/chores/simple meal prep) -> Independent Encounter Status:Closed by KAVITHA TERRELL MD on 08/20/18 MONET Observed: 08/20/2018 Status: COMPLETED Source: [place] 12:00 AM CLINIC OTHER CAMPUS REPOSITORY Telephone ([facility]ATH) MAHI TAN ([id number]) 1975 F Date Time Provider Department 08/20/[address] [facility] During your visit today, we recorded the following information about you: Arlin Mahmood 08/20/2018 3:27 PM Signed Internal referral Consult to Allergy/Immunology Conf #[id number] Arlin Mahmood 08/21/2018 1:44 PM Signed Scheduled with Dr. Jorge Limon 09/03 7A Arlin Mahmood Allergies As of Date: 08/20/2018 Noted Allergy Reaction BENEDRYL (DIPHENHYDRAMINE) 07/01/2009 14 - Other: See Comments Comments: Makes her feel jittery IV- DOXYCYCLINE 08/13/2006 11 - Vomiting IMITREX (SUMATRIPTAN SUCCINATE) 12/06/2009 Comments: chest pain PHENERGAN (PROMETHAZINE HCL) 06/14/2010 5 - Intolerance Comments: restless legs IV- TRAMADOL 07/05/2017 5 - Intolerance Date Reviewed: 08/20/2018 Reviewed by: Ewelina ([facility]) Daryl - Fully Assessed Reason for Visit: Initial Consult [665] Prescriptions as of 08/20/2018 Sig: GABAPENTIN 100 MG CAPSULE Take 2 capsules by mouth janay* PERFLUTREN LIPID MICROSPHERES* Inject 1.3 mL intravenously a* Patient not taking: Reported on 08/20/2018 LEVOTHYROXINE 175 MCG TABLET Take 1 tablet by mouth once d* JANUVIA 100 MG TABLET TAKE 1 TABLET EVERY DAY ASCORBIC ACID (VITAMIN C) 500* Take 500 mg by mouth once babar* MELATONIN 10 MG CAPSULE Take 10 mg by mouth daily at * PANTOPRAZOLE 40 MG TABLET,DEL* Take 1 tablet by mouth once d* FAMOTIDINE 20 MG TABLET Take 1 tablet by mouth daily * BLOOD-GLUCOSE METER 1 Units once daily. LANCETS Use as instructed. Preferred * BLOOD SUGAR DIAGNOSTIC STRIPS Use as instructed. Insurance * METFORMIN 1,000 MG TABLET TAKE 1 TABLET TWICE DAILY WIT* FLUTICASONE 50 MCG/ACTUATION * Use 1 [place] in each nostril o* ASPIRIN 81 MG CHEWABLE TABLET Take 81 mg by mouth. CARVEDILOL 12.5 MG TABLET Take 1 tablet by mouth twice * FERROUS SULFATE 325 MG (65 MG* Take 1 tablet by mouth daily * ALBUTEROL SULFATE HFA 90 MCG/* Inhale 2 Puffs as instructed * ATORVASTATIN 20 MG TABLET Take 1 tablet by mouth once d* CLOPIDOGREL 75 MG TABLET Take 1 tablet by mouth once d* CHOLECALCIFEROL (VITAMIN D3) * Take 1 capsule by mouth once * LEVONORGESTREL 20 MCG/24 HR (* 1 Each by INTRAUTERINE route * BLOOD SUGAR DIAGNOSTIC STRIPS Test blood sugar(s) one times* LANCETS Test blood sugar(s) one times* Problem List As Of Date 08/20/2018 Noted Resolved Chest pain, unspecified [R07.9] INVALID FOR*11/21/2011 Essential hypertension, benign [I10] INVALID FOR*11/21/2011 Shortness of breath [R06.02] INVALID FOR*11/21/2011 Restless legs syndrome (RLS) [G25.81] INVALID FOR* Insomnia [G47.00] INVALID FOR* PLANTAR Fasciitis [M72.2] INVALID FOR*11/21/2011 Diarrhea [R19.7] INVALID FOR*09/29/2014 Hemorrhage of gastrointestinal tract [K92.2] INVALID FOR* Internal hemorrhoids without mention of complic*INVALID FOR*11/21/2011 Ganglion of joint [M67.40] INVALID FOR*11/21/2011 Irritable bowel syndrome [K58.9] INVALID FOR* PAP SMEAR OF CERVIX W ASCUS [R87.610] INVALID FOR* Cervical high risk human papillomavirus (HPV) D*INVALID FOR* Female stress incontinence [N39.3] INVALID FOR* Pain in limb [M79.609] INVALID FOR*11/21/2011 Calcaneal spur [M77.30] INVALID FOR*11/21/2011 Depressive disorder, not elsewhere classified [*INVALID FOR*11/21/2011 Microscopic hematuria [R31.29] INVALID FOR*11/21/2011 Pain in joint, pelvic region and thigh [M25.559]INVALID FOR*11/21/2011 Cholelithiasis NOS [K80.20] INVALID FOR*11/21/2011 Hypothyroid [E03.9] INVALID FOR* Ovarian cystic mass [N83.209] INVALID FOR*11/21/2011 Depression, major [F32.9] 11/21/2011 Panic attack [F41.0] INVALID FOR*11/21/2011 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] INVALID FOR* Backache, unspecified [M54.9] INVALID FOR*09/29/2014 Cervicalgia [M54.2] INVALID FOR*09/29/2014 Bipolar 2 disorder (HCC) [F31.81] INVALID FOR* Dysuria [R30.0] INVALID FOR*09/29/2014 Hematuria [R31.9] INVALID FOR* Urinary tract infection [N39.0] INVALID FOR*09/29/2014 Urgency of urination [R39.15] INVALID FOR*09/29/2014 Frequency of urination [R35.0] INVALID FOR*09/29/2014 Low back pain [M54.5] INVALID FOR* Family history of ovarian cancer [Z80.41] INVALID FOR* LADONNA (stress urinary incontinence, female) [N39.*INVALID FOR* Cystocele [BGI1437] INVALID FOR* Type 2 diabetes mellitus without complication (*INVALID FOR* Trigger middle finger of left hand [M65.332] INVALID FOR* Coronary atherosclerosis [I25.10] INVALID FOR* More... Essential hypertension [I10] INVALID FOR* Morbid obesity with BMI of 40.0-44.9, adult (HC*INVALID FOR* GERD (gastroesophageal reflux disease) [K21.9] INVALID FOR* TONIO (obstructive sleep apnea) [G47.33] INVALID FOR* More... Iron deficiency concern [E61.1] INVALID FOR* Presence of drug coated stent in LAD coronary a*INVALID FOR* Family history of ischemic heart disease [Z82.4*INVALID FOR* Presence of drug coated stent in right coronary*INVALID FOR* Vitamin D insufficiency [E55.9] INVALID FOR* Sprain of lumbar region-BWC [S33.5XXA] INVALID FOR* Anterior cervical lymphadenopathy [R59.0] INVALID FOR* More... Axillary lymphadenopathy [R59.0] INVALID FOR*08/14/2016 More... Onychomycosis [B35.1] INVALID FOR* Mild intermittent asthma without complication [*INVALID FOR* Prolonged QT interval [R94.31] INVALID FOR* Chronic pain of left knee [M25.562, G89.29] INVALID FOR* Iron deficiency anemia [D50.9] INVALID FOR* Gastroesophageal reflux disease [K21.9] INVALID FOR* Family history of coronary artery disease [Z82.*INVALID FOR* Hyperlipidemia [E78.5] INVALID FOR* Obesity, Class II, BMI 35-39.9 E66.9 [E66.9] INVALID FOR* Asthma [J45.909] INVALID FOR* History of cholecystectomy [Z90.49] INVALID FOR* History of thyroidectomy [Z98.890] INVALID FOR* alf (current) use of antithrombotics/anti*INVALID FOR* sign painter (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 [Z79.82] INVALID FOR* 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*INVALID FOR* Sprain of ankle [S93.409A] INVALID FOR* Lymphadenopathy, generalized [R59.1] INVALID FOR* Pain in joint, multiple sites [M25.50] INVALID FOR* Positive LARISSA (antinuclear antibody) [R76.8] INVALID FOR* Abdominal pain [R10.9] Hepatosplenomegaly [R16.2] Elevated LFTs [R94.5] Encounter Status:Closed by ARLIN MAHMOOD on 08/20/18 CNPN Observed: 08/20/2018 Status: COMPLETED Source: [place] 12:00 AM CLINIC OTHER CAMPUS REPOSITORY Telephone (RHBATH) MAHI TAN ([id number]) 1975 F Date Time Provider Department 08/20/18 KAVITHA TERRELL RHBATH During your visit today, we recorded the following information about you: Arlin Mahmood 08/20/2018 3:29 PM Signed Internal referral Consult to Infectious Diseases conf #[id number] Arlin Mahmood 08/28/2018 9:00 AM Signed PT is scheduled Dr Link 10/17 at 1:30. Arlin Mahmood Allergies As of Date: 08/20/2018 Noted Allergy Reaction BENEDRYL (DIPHENHYDRAMINE) 07/01/2009 14 - Other: See Comments Comments: Makes her feel jittery IV- DOXYCYCLINE 08/13/2006 11 - Vomiting IMITREX (SUMATRIPTAN SUCCINATE) 12/06/2009 Comments: chest pain PHENERGAN (PROMETHAZINE HCL) 06/14/2010 5 - Intolerance Comments: restless legs IV- TRAMADOL 07/05/2017 5 - Intolerance Date Reviewed: 08/20/2018 Reviewed by: [facility]Le[facility] Brito - Fully Assessed Reason for Visit: Initial Consult [665] Prescriptions as of 08/20/2018 Sig: GABAPENTIN 100 MG CAPSULE Take 2 capsules by mouth janay* PERFLUTREN LIPID MICROSPHERES* Inject 1.3 mL intravenously a* LEVOTHYROXINE 175 MCG TABLET Take 1 tablet by mouth once d* JANUVIA 100 MG TABLET TAKE 1 TABLET EVERY DAY ASCORBIC ACID (VITAMIN C) 500* Take 500 mg by mouth once babar* MELATONIN 10 MG CAPSULE Take 10 mg by mouth daily at * PANTOPRAZOLE 40 MG TABLET,DEL* Take 1 tablet by mouth once d* X FAMOTIDINE 20 MG TABLET Take 1 tablet by mouth daily * BLOOD-GLUCOSE METER 1 Units once daily. LANCETS Use as instructed. Preferred * BLOOD SUGAR DIAGNOSTIC STRIPS Use as instructed. Insurance * METFORMIN 1,000 MG TABLET TAKE 1 TABLET TWICE DAILY WIT* FLUTICASONE 50 MCG/ACTUATION * Use 1 Harcourt in each nostril o* ASPIRIN 81 MG CHEWABLE TABLET Take 81 mg by mouth. CARVEDILOL 12.5 MG TABLET Take 1 tablet by mouth twice * FERROUS SULFATE 325 MG (65 MG* Take 1 tablet by mouth daily * ALBUTEROL SULFATE HFA 90 MCG/* Inhale 2 Puffs as instructed * ATORVASTATIN 20 MG TABLET Take 1 tablet by mouth once d* CLOPIDOGREL 75 MG TABLET Take 1 tablet by mouth once d* CHOLECALCIFEROL (VITAMIN D3) * Take 1 capsule by mouth once * LEVONORGESTREL 20 MCG/24 HR (* 1 Each by INTRAUTERINE route * BLOOD SUGAR DIAGNOSTIC STRIPS Test blood sugar(s) one times* LANCETS Test blood sugar(s) one times* Problem List As Of Date 08/20/2018 Noted Resolved Chest pain, unspecified [R07.9] INVALID FOR*11/21/2011 Essential hypertension, benign [I10] INVALID FOR*11/21/2011 Shortness of breath [R06.02] INVALID FOR*11/21/2011 Restless legs syndrome (RLS) [G25.81] INVALID FOR* Insomnia [G47.00] INVALID FOR* PLANTAR Fasciitis [M72.2] INVALID FOR*11/21/2011 Diarrhea [R19.7] INVALID FOR*09/29/2014 Hemorrhage of gastrointestinal tract [K92.2] INVALID FOR* Internal hemorrhoids without mention of complic*INVALID FOR*11/21/2011 Ganglion of joint [M67.40] INVALID FOR*11/21/2011 Irritable bowel syndrome [K58.9] INVALID FOR* PAP SMEAR OF CERVIX W ASCUS [R87.610] INVALID FOR* Cervical high risk human papillomavirus (HPV) D*INVALID FOR* Female stress incontinence [N39.3] INVALID FOR* Pain in limb [M79.609] INVALID FOR*11/21/2011 Calcaneal spur [M77.30] INVALID FOR*11/21/2011 Depressive disorder, not elsewhere classified [*INVALID FOR*11/21/2011 Microscopic hematuria [R31.29] INVALID FOR*11/21/2011 Pain in joint, pelvic region and thigh [M25.559]INVALID FOR*11/21/2011 Cholelithiasis NOS [K80.20] INVALID FOR*11/21/2011 Hypothyroid [E03.9] INVALID FOR* Ovarian cystic mass [N83.209] INVALID FOR*11/21/2011 Depression, major [F32.9] 11/21/2011 Panic attack [F41.0] INVALID FOR*11/21/2011 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] INVALID FOR* Backache, unspecified [M54.9] INVALID FOR*09/29/2014 Cervicalgia [M54.2] INVALID FOR*09/29/2014 Bipolar 2 disorder (HCC) [F31.81] INVALID FOR* Dysuria [R30.0] INVALID FOR*09/29/2014 Hematuria [R31.9] INVALID FOR* Urinary tract infection [N39.0] INVALID FOR*09/29/2014 Urgency of urination [R39.15] INVALID FOR*09/29/2014 Frequency of urination [R35.0] INVALID FOR*09/29/2014 Low back pain [M54.5] INVALID FOR* Family history of ovarian cancer [Z80.41] INVALID FOR* LADONNA (stress urinary incontinence, female) [N39.*INVALID FOR* Cystocele [VLQ3265] INVALID FOR* Type 2 diabetes mellitus without complication (*INVALID FOR* Trigger middle finger of left hand [M65.332] INVALID FOR* Coronary atherosclerosis [I25.10] INVALID FOR* More... Essential hypertension [I10] INVALID FOR* Morbid obesity with BMI of 40.0-44.9, adult (HC*INVALID FOR* GERD (gastroesophageal reflux disease) [K21.9] INVALID FOR* TONIO (obstructive sleep apnea) [G47.33] INVALID FOR* More... Iron deficiency concern [E61.1] INVALID FOR* Presence of drug coated stent in LAD coronary a*INVALID FOR* Family history of ischemic heart disease [Z82.4*INVALID FOR* Presence of drug coated stent in right coronary*INVALID FOR* Vitamin D insufficiency [E55.9] INVALID FOR* Sprain of lumbar region-BWC [S33.5XXA] INVALID FOR* Anterior cervical lymphadenopathy [R59.0] INVALID FOR* More... Axillary lymphadenopathy [R59.0] INVALID FOR*08/14/2016 More... Onychomycosis [B35.1] INVALID FOR* Mild intermittent asthma without complication [*INVALID FOR* Prolonged QT interval [R94.31] INVALID FOR* Chronic pain of left knee [M25.562, G89.29] INVALID FOR* Iron deficiency anemia [D50.9] INVALID FOR* Gastroesophageal reflux disease [K21.9] INVALID FOR* Family history of coronary artery disease [Z82.*INVALID FOR* Hyperlipidemia [E78.5] INVALID FOR* Obesity, Class II, BMI 35-39.9 E66.9 [E66.9] INVALID FOR* Asthma [J45.909] INVALID FOR* History of cholecystectomy [Z90.49] INVALID FOR* History of thyroidectomy [Z98.890] INVALID FOR* alf (current) use of antithrombotics/anti*INVALID FOR* alf (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 [Z79.82] INVALID FOR* 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*INVALID FOR* Sprain of ankle [S93.409A] INVALID FOR* Lymphadenopathy, generalized [R59.1] INVALID FOR* Pain in joint, multiple sites [M25.50] INVALID FOR* Positive LARISSA (antinuclear antibody) [R76.8] INVALID FOR* Abdominal pain [R10.9] Hepatosplenomegaly [R16.2] Elevated LFTs [R94.5] Encounter Status:Closed by ARLIN MAHMOOD on 08/20/18 [id number] Collected: Status: F Source: [place] 08/18/2018 4:11 PM [facility] REPOSITORY TYPE CODE TESTS RESULT OUT OF RANGE REFERENCE UNITS LAB AAT(LOINC) 90-200 mg/dL 142 Dzpjz-2-Owla trypsin Performed By: #### AAT #### [place] [address] CERULOPLASMIN Collected: 08/18/2018 Status: F Source: [facility] 4:11 PM HEALTH SYSTEM REPOSITORY TYPE CODE TESTS RESULT OUT OF REFERENCE UNITS RANGE LAB CER(LOINC) 20.0-60.0 mg/dL Ceruloplasmin 29.1 Performed By: #### CER #### [place] [address] HEP. B SURFACE AB Collected: 08/18/2018 Status: F Source: [facility] 4:11 HEALTH SYSTEM REPOSITORY TYPE CODE TESTS RESULT OUT OF REFERENCE UNITS RANGE LAB ANTB(LOINC) mIU/mL Hep. B Surface 512.5 Ab Result Comment: Hep B. Antibody < 10.0 mIU/mL is negative. Hep B. Antibody > or = 10.0 mIU/mL is positive. Performed By: #### ANTB #### [place] [address] HEPATITIS C ANTIBODY Collected: 08/18/2018 Status: F Source: [facility] 4:11 HEALTH SYSTEM REPOSITORY TYPE CODE TESTS RESULT OUT OF REFERENCE UNITS RANGE LAB HCV(LOINC) Negative Hepatitis C Ab Negative Performed By: #### HCVAB #### [place] [address] HEPATITIS A TOTAL Collected: 08/18/2018 Status: F Source: [facility] 4:11 [facility] REPOSITORY TYPE CODE TESTS RESULT OUT OF REFERENCE UNITS RANGE LAB HEPAX(LOIN C) Hepatitis A SEE BELOW Total Result Comment: Hepatitis A Ab Total Negative NEGAT Performing Laboratory: [facility] [address] [place] [address] Performed By: #### HEPAX #### [place] [address] HEP B CORE AB,TOTAL Collected: 08/18/2018 Status: F Source: [facility] 4:11 HEALTH SYSTEM REPOSITORY TYPE CODE TESTS RESULT OUT OF RANGE REFERENCE UNITS LAB HBCTX(LOINC ) Hep B SEE BELOW Core Ab,Total Result Comment: Hep B Core Ab,Total Negative NEGAT Performing Laboratory: [facility] [address] [place] [address] Performed By: #### HBCTX #### [place] [address] LARISSA BY IFA SCREEN Collected: 08/18/2018 Status: F Source: [facility] 4:11 [facility] REPOSITORY TYPE CODE TESTS RESULT OUT OF REFERENCE UNITS RANGE LAB ANAX(LOINC) LARISSA by IFA SEE BELOW Screen Result Comment: LARISSA Negative NEGAT Normal range : negative at <1:80 serum dilution. Approximately 6% of patients with connective tissue diseases with low positive EIA values are negative by IFA. Recommend follow-up with specific antinuclear antibodies if clinically indicated. LARISSA Titer Negative NEGAT Normal range : negative at <1:80 serum dilution. LARISSA Pattern SEE BELOW Not applicable for negative result. Performing Laboratory: [facility] [address] [place] [id number] Performed By: #### ANAX #### [facility] [address] [place] [address] SMOOTH MUSCLE AB Collected: 08/18/2018 Status: F Source: [facility] SCR 4:11 PM HEALTH SYSTEM REPOSITORY TYPE CODE TESTS RESULT OUT OF REFERENCE UNITS RANGE LAB SMUSX(LOINC ) Smooth Muscle SEE BELOW Ab Scr Result Comment: Smooth Muscle Ab Pnl Positive AB NEGAT Normal range : negative at a 1:20 serum dilution. Performing Laboratory: [facility] [address] [place] [id number] Performed By: #### SMUSX #### [place] [address] MITOCHONDRIAL AB SCRN Collected: 08/18/2018 Status: F Source: [facility] 4:11 PM HEALTH SYSTEM REPOSITORY TYPE CODE TESTS RESULT OUT OF REFERENCE UNITS RANGE LAB MITOX(LOIN C) Mitochondrial Ab Scrn SEE BELOW Result Comment: Mitochondrial Ab Pnl Negative NEGAT Normal range : negative at a 1:20 serum dilution. Performing Laboratory: [facility] [address] [place] [id number] Performed By: #### MITOX #### [place] [address] SMOOTH MUSCLE TITER Collected: 08/18/2018 Status: F Source: [facility] (LAB ORDERED) 4:11 PM HEALTH SYSTEM REPOSITORY TYPE CODE TESTS RESULT OUT OF REFERENCE UNITS RANGE LAB SMA1X(LOINC ) Smooth Muscle SEE BELOW Titer (Lab Ordered) Result Comment: Smooth Muscle Titer 1:20 AB NEGAT Performing Laboratory: [facility] [address] [place] [id number] Performed By: #### SMA1X #### [facility] [address] [place] [address] HISTORY PHYSICAL Observed: 08/18/2018 Status: COMPLETED Source: [place] 3:04 PM CLINIC OTHER CAMPUS REPOSITORY HNO ID: [id number] Author: Ricky Castaneda Service: (none) Author Type: Physician Type: HANDP Filed: 08/18/2018 3:56 PM Note Text: 08/18/2018 NAME: Mahi Tan Date of : 1975 Reason for visit: Abdominal Pain; GERD; and Initial Consult (enlarged liver and spleen) HPI: 43 yo female referred by Lester Lopez for above. For past few months she has been having some abd pain in upper abd after eating - moreso in RUQ. If she eats a full size meal she gets this discomfort. She has lost about 10-15# in past few months as she eats less due to this. She also has GERD - has this 2-3x a week near bedtime despite fact she takes pantoprazole QAM and Pepcid QHS. She has no dysphagia but at times she feels like something is in her esophagus even though she has not eaten. She has no issues with her BM's - had IBS-D type s/sx a few year ago but not any s/sx lately. She denies seeing blood in stool. Current Outpatient Prescriptions: fluconazole (DIFLUCAN) 150 mg tablet Take 1 tablet by mouth one time only for 1 dose. gabapentin (NEURONTIN) 100 mg capsule Take 2 capsules by mouth daily at bedtime for 30 days. perflutren lipid microspheres (DEFINITY) 1.1 mg/mL injection (to be provided with echo procedure) Inject 1.3 mL intravenously as directed. levothyroxine (SYNTHROID) 175 mcg tablet Take 1 tablet by mouth once daily. JANUVIA 100 mg tablet TAKE 1 TABLET EVERY DAY ascorbic acid, vitamin C, (VITAMIN C) 500 mg tablet Take 500 mg by mouth once daily. melatonin 10 mg cap Take 10 mg by mouth daily at bedtime. pantoprazole DR (PROTONIX) 40 mg tablet Take 1 tablet by mouth once daily. famotidine (PEPCID) 20 mg tablet Take 1 tablet by mouth daily at bedtime. Blood-Glucose Meter misc 1 Units once daily. Lancets lancets Use as instructed. Preferred insurance brand. blood sugar diagnostic (4C InsightsTOUCH ULTRA TEST) test strip Use as instructed. Insurance preferred brand. metFORMIN (GLUCOPHAGE) 1,000 mg tablet TAKE 1 TABLET TWICE DAILY WITH meals fluticasone (FLONASE) 50 mcg/actuation nasal spray Use 1 Harcourt in each nostril once daily. aspirin 81 mg chewable tablet Take 81 mg by mouth. carvedilol (COREG) 12.5 mg tablet Take 1 tablet by mouth twice daily. ferrous sulfate (IRON) 325 mg (65 mg iron) tablet Take 1 tablet by mouth daily with breakfast. albuterol HFA (VENTOLIN HFA) 90 mcg/actuation inhaler Inhale 2 Puffs as instructed every 4 hours as needed for Wheezing/Shortness of Breath. atorvastatin (LIPITOR) 20 mg tablet Take 1 tablet by mouth once daily. clopidogrel (PLAVIX) 75 mg tablet Take 1 tablet by mouth once daily. Cholecalciferol, Vitamin D3, 1,000 unit cap Take 1 capsule by mouth once daily. levonorgestrel (MIRENA) 20 mcg/24 hr (5 years) IUD 1 Each by INTRAUTERINE route continuous. blood sugar diagnostic (BLOOD GLUCOSE TEST) test strip Test blood sugar(s) one times daily. Dx: 250.00. Insulin: No Lancets lancets Test blood sugar(s) one times daily. Dx: 250.00. Insulin: No No current facility-administered medications for this visit. ALLERGIES Allergen Reactions - Benedryl [Diphenhyd* Other: See Comments Makes her feel jittery IV- - Doxycycline Vomiting - Imitrex [Sumatripta* chest pain - Phenergan [Prometha* Intolerance restless legs IV- - Tramadol Intolerance PAST MEDICAL HISTORY Diagnosis Date - Allergic rhinitis - Anxiety - Asthma no issues for several years - Bipolar 2 disorder (HCC) 11/21/2011 - CAD (coronary artery disease) - Calculus of gallbladder without mention of cholecystitis or obstruction 08/24/2009 - Cervical high risk human papillomavirus (HPV) DNA test positive - Common cold - Depressive disorder [facility]. [facility] - Diabetes (HCC) - Diarrhea - Double vessel coronary artery disease 2 stents - Excessive or frequent menstruation Heavy periods Resolved - Female stress incontinence 01/13/2008 - Ganglion of joint 10/14/2007 - GERD (gastroesophageal reflux disease) - Hand pain - Hemorrhage of gastrointestinal tract, unspecified - History of intrauterine contraceptive device Mirena placed May 2015 Dr. Willy Schmid - Hyperlipidemia - Hypertension - Internal hemorrhoids without mention of complication - Irregular menstrual cycle Irregular periods Resolved - Irritable bowel syndrome Irritable bowel - Obesity - Obstructive sleep apnea Last PSG 07/22/18 = AHI 14.5 - Onychomycosis - Other specified acquired hypothyroidism - Ovarian cystic mass 06/07/2010 - Panic attack 07/18/2010 - Papanicolaou smear of cervix with atypical squamous cells of undetermined significance (ASC-US) - Paresthesia of hand - PLANTAR Fasciitis 07/15/2007 - PTSD (post-traumatic stress disorder) - Status post left heart catheterization 10/2014 PAST SURGICAL HISTORY Procedure Laterality Date - ANGIOPLASTY 11/23/14 [facility]-proximal LAD and proximal RCA 2 stents - CARDIAC CATHETERIZATION HX 11/20/14 [facility]proximal RCA lesion - COLONOSCOP W/ OR W/O BRSH SPEC 06/09/14 Colonoscopy - COLONOSCOPY W/BX 08/13/07 - COLPOSCOPY (VAGINOSCOPY) 2006 Colposcopy - EXCIS PRIMARY GANGLION WRIST 11/04/07 LEFT WRIST, Dr. Alcantara - LAP CHOLECYSTECT/CHOLANGIOGRAPHY 09/05/2009 Normal IOC - LIGATE FALLOPIAN TUBE 10/1998 Tubal ligation, [facility] - PAST SURGICAL HISTORY OF Left 01/28/15 middle trigger finger release - S SLING DANIELLE HARVEY TOTScott [id number] 2013 [facility] - THYROIDECTOMY 01/1994 goiter no cancer FAMILY HISTORY Problem Relation Age of Onset - Cancer Mother /lung cancer/nonhodgkins lymphoma/Ovarian - Asthma Mother - Hyperlipidemia Mother - other (depressive disorder) Mother - Heart Father - Hyperlipidemia Father - Hypertension Father - other (cornary artery disease) Father heart attack and stents put in - Hypertension Brother - Blood Clots Brother Lungs - No Known Problems Brother - No Known Problems Brother - Osteoporosis Maternal Grandmother - Coronary Artery Disease Paternal Grandmother - Diabetes Paternal Grandmother - Coronary Artery Disease Paternal Grandfather - Hypertension Paternal Grandfather - Hypertension Son - Breast Cancer Other maternal great grandmother 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 Social History Main Topics Smoking status: Never Smoker Smokeless tobacco: Never Used Alcohol use: No Drug use: No Comment: no reported history Sexual activity: Yes Partners with: Male control/protection: Surgical, Tubal Ligation Other Topics Concern Caffeine Concern Not Asked Comment:uses caffeine GASTROENTESTINAL: Abdominal Pain (upper) Abdominal swelling Bloagting Heartburn URINARY: NONE CARDIOVASCULAR: Shortness of Breath (position) NEUROLOGICAL: NONE CONSTITUTIONAL: Fatigue and Weight Loss EYES: NONE EARS, NOSE AND THROAT: Mouth Sores RESPIRATORY: Shortness of Breath SKIN: NONE ENDOCRINE: Heat Intolerance PSYCHIATRIC: Anxiety Difficulty Sleeping HEMATOLOGIC NONE MUSCULOSKELETAL: Joint Pain IMMUNOLOGIC: NONE PHYSICAL EXAMINATION: BP 139/91 Pulse 79 Ht 165.1 cm (5' 5) Wt 102.1 kg (225 lb) LMP 07/28/2018 (Approximate) BMI 37.44 kg/m? GENERAL APPEARANCE: Well appearing, alert, in no acute distress, well-hydrated, well nourished.. SKIN: Skin color, texture, turgor normal, no suspicious rashes or lesions. EYES: Anicteric sclera. Pupils are equally round and reactive to light. Extraocular movements are intact. . NECK: Supple, no adenopathy; thyroid symmetric, normal size, no bruits. LUNGS: Lungs clear to auscultation. No wheezing, rhonchi, rales. HEART: RRR without murmur, gallop, or rubs. No ectopy. ABDOMEN: Obese, Abdomen soft, non-tender, non distended. Bowel sounds normal. No masses, ascites or hepatosplenomegaly. EXTREMITIES: No deformities, edema, skin discoloration, clubbing or cyanosis. NEUROLOGIC: Gait normal. Sensation and strength grossly intact.. ASSESSMENT/PLAN: 1. Abdominal pain, unspecified abdominal location - ICD9: 789.00, ICD10: R10.9 In upper abdomen after eating a full meal - ? gastroparesis 2. Hepatosplenomegaly - ICD9: 571.8, ICD10: R16.2 U/s abd 04/2018 The liver is echodense and enlarged. ?It measures 21 cm in cephalocaudal dimension (upper limit of normal is 16 cm). ?Echodense nature of the liver suggests hepatic steatosis 3. Elevated LFTs - ICD9: 790.6, ICD10: R94.5 Likely due to non-alcoholic fatty liver given u/s results and comorbidities (obesty, HTN, HPL and DM) 4. Gastroesophageal reflux disease, esophagitis presence not specified - ICD9: 530.81, ICD10: K21.9 (primary diagnosis) About 2-3 evenings a week even though she takes PPI No alarm s/sx. Check hepatitis serologies as ordered Upper Endoscopy * The benefits, alternatives, and risks of the procedure(s) including (but not exclusive to ) bleeding, perforation, allergic reaction(s) due to sedatives, need for hospitalization, need for transfusions, need for surgery, and likelihood of missing a polyp or neoplastic lesion, were explained to the patient/guardian/responsible accompanying adult who is agreeable. If above is normal would then schedule gastric emptying study Ricky Castaneda MD CNOV Observed: 08/18/2018 Status: COMPLETED Source: [place] 3:00 PM CLINIC OTHER CAMPUS REPOSITORY Office Visit (AGGASTW) MAHI TAN ([id number]) 1975 F Date Time Provider Department 08/18/18 3:00 PM RICKY CASTANEDA AGGASTW During your visit today, we recorded the following information about you: Pulse Blood pressure Weight Height 79/minute 139/91 102.1 kg 1.651 m Ricky Castaneda MD 08/18/2018 3:56 PM Signed 08/18/2018 NAME: Mahi Tan Date of : 1975 Reason for visit: Abdominal Pain; GERD; and Initial Consult (enlarged liver and spleen) HPI: 43 yo female referred by Lester Lopez for above. For past few months she has been having some abd pain in upper abd after eating - moreso in RUQ. If she eats a full size meal she gets this discomfort. She has lost about 10-15# in past few months as she eats less due to this. She also has GERD - has this 2-3x a week near bedtime despite fact she takes pantoprazole QAM and Pepcid QHS. She has no dysphagia but at times she feels like something is in her esophagus even though she has not eaten. She has no issues with her BM's - had IBS-D type s/sx a few year ago but not any s/sx lately. She denies seeing blood in stool. Current Outpatient Prescriptions: fluconazole (DIFLUCAN) 150 mg tablet Take 1 tablet by mouth one time only for 1 dose. gabapentin (NEURONTIN) 100 mg capsule Take 2 capsules by mouth daily at bedtime for 30 days. perflutren lipid microspheres (DEFINITY) 1.1 mg/mL injection (to be provided with echo procedure) Inject 1.3 mL intravenously as directed. levothyroxine (SYNTHROID) 175 mcg tablet Take 1 tablet by mouth once daily. JANUVIA 100 mg tablet TAKE 1 TABLET EVERY DAY ascorbic acid, vitamin C, (VITAMIN C) 500 mg tablet Take 500 mg by mouth once daily. melatonin 10 mg cap Take 10 mg by mouth daily at bedtime. pantoprazole DR (PROTONIX) 40 mg tablet Take 1 tablet by mouth once daily. famotidine (PEPCID) 20 mg tablet Take 1 tablet by mouth daily at bedtime. Blood-Glucose Meter misc 1 Units once daily. Lancets lancets Use as instructed. Preferred insurance brand. blood sugar diagnostic (ONETOUCH ULTRA TEST) test strip Use as instructed. Insurance preferred brand. metFORMIN (GLUCOPHAGE) 1,000 mg tablet TAKE 1 TABLET TWICE DAILY WITH meals fluticasone (FLONASE) 50 mcg/actuation nasal spray Use 1 Harcourt in each nostril once daily. aspirin 81 mg chewable tablet Take 81 mg by mouth. carvedilol (COREG) 12.5 mg tablet Take 1 tablet by mouth twice daily. ferrous sulfate (IRON) 325 mg (65 mg iron) tablet Take 1 tablet by mouth daily with breakfast. albuterol HFA (VENTOLIN HFA) 90 mcg/actuation inhaler Inhale 2 Puffs as instructed every 4 hours as needed for Wheezing/Shortness of Breath. atorvastatin (LIPITOR) 20 mg tablet Take 1 tablet by mouth once daily. clopidogrel (PLAVIX) 75 mg tablet Take 1 tablet by mouth once daily. Cholecalciferol, Vitamin D3, 1,000 unit cap Take 1 capsule by mouth once daily. levonorgestrel (MIRENA) 20 mcg/24 hr (5 years) IUD 1 Each by INTRAUTERINE route continuous. blood sugar diagnostic (BLOOD GLUCOSE TEST) test strip Test blood sugar(s) one times daily. Dx: 250.00. Insulin: No Lancets lancets Test blood sugar(s) one times daily. Dx: 250.00. Insulin: No No current facility-administered medications for this visit. ALLERGIES Allergen Reactions - Benedryl [Diphenhyd* Other: See Comments Makes her feel jittery IV- - Doxycycline Vomiting - Imitrex [Sumatripta* chest pain - Phenergan [Prometha* Intolerance restless legs IV- - Tramadol Intolerance PAST MEDICAL HISTORY Diagnosis Date - Allergic rhinitis - Anxiety - Asthma no issues for several years - Bipolar 2 disorder (HCC) 11/21/2011 - CAD (coronary artery disease) - Calculus of gallbladder without mention of cholecystitis or obstruction 08/24/2009 - Cervical high risk human papillomavirus (HPV) DNA test positive - Common cold - Depressive disorder Dr. Cornell- [facility] - Diabetes ([facility]) - Diarrhea - Double vessel coronary artery disease 2 stents - Excessive or frequent menstruation Heavy periods Resolved - Female stress incontinence 01/13/2008 - Ganglion of joint 10/14/2007 - GERD (gastroesophageal reflux disease) - Hand pain - Hemorrhage of gastrointestinal tract, unspecified - History of intrauterine contraceptive device Mirena placed May 2015 Dr. Willy Schmid - Hyperlipidemia - Hypertension - Internal hemorrhoids without mention of complication - Irregular menstrual cycle Irregular periods Resolved - Irritable bowel syndrome Irritable bowel - Obesity - Obstructive sleep apnea Last PSG 07/22/18 = AHI 14.5 - Onychomycosis - Other specified acquired hypothyroidism - Ovarian cystic mass 06/07/2010 - Panic attack 07/18/2010 - Papanicolaou smear of cervix with atypical squamous cells of undetermined significance (ASC-US) - Paresthesia of hand - PLANTAR Fasciitis 07/15/2007 - PTSD (post-traumatic stress disorder) - Status post left heart catheterization 10/2014 PAST SURGICAL HISTORY Procedure Laterality Date - ANGIOPLASTY 11/23/14 [facility]-proximal LAD and proximal RCA 2 stents - CARDIAC CATHETERIZATION HX 11/20/14 [facility]-proximal RCA lesion - COLONOSCOP W/ OR W/O [facility] SPEC 06/09/14 Colonoscopy - COLONOSCOPY W/BX 08/13/07 - COLPOSCOPY (VAGINOSCOPY) 2006 Colposcopy - EXCIS PRIMARY GANGLION WRIST 11/04/07 LEFT WRIST, Dr. Alcantara - LAP CHOLECYSTECT/CHOLANGIOGRAPHY 09/05/2009 Normal IOC - LIGATE FALLOPIAN TUBE 10/1998 Tubal ligation, [facility] - PAST SURGICAL HISTORY OF Left 01/28/15 middle trigger finger release - S [facility] 0804 2013 monarc - THYROIDECTOMY 01/1994 goiter no cancer FAMILY HISTORY Problem Relation Age of Onset - Cancer Mother /lung cancer/nonhodgkins lymphoma/Ovarian - Asthma Mother - Hyperlipidemia Mother - other (depressive disorder) Mother - Heart Father - Hyperlipidemia Father - Hypertension Father - other (cornary artery disease) Father heart attack and stents put in - Hypertension Brother - Blood Clots Brother Lungs - No Known Problems Brother - No Known Problems Brother - Osteoporosis Maternal Grandmother - Coronary Artery Disease Paternal Grandmother - Diabetes Paternal Grandmother - Coronary Artery Disease Paternal Grandfather - Hypertension Paternal Grandfather - Hypertension Son - Breast Cancer Other maternal great grandmother 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 Social History Main Topics Smoking status: Never Smoker Smokeless tobacco: Never Used Alcohol use: No Drug use: No Comment: no reported history Sexual activity: Yes Partners with: Male control/protection: Surgical, Tubal Ligation Other Topics Concern Caffeine Concern Not Asked Comment:uses caffeine GASTROENTESTINAL: Abdominal Pain (upper) Abdominal swelling Bloagting Heartburn URINARY: NONE CARDIOVASCULAR: Shortness of Breath (position) NEUROLOGICAL: NONE CONSTITUTIONAL: Fatigue and Weight Loss EYES: NONE EARS, NOSE AND THROAT: Mouth Sores RESPIRATORY: Shortness of Breath SKIN: NONE ENDOCRINE: Heat Intolerance PSYCHIATRIC: Anxiety Difficulty Sleeping HEMATOLOGIC NONE MUSCULOSKELETAL: Joint Pain IMMUNOLOGIC: NONE PHYSICAL EXAMINATION: BP 139/91 Pulse 79 Ht 165.1 cm (5' 5) Wt 102.1 kg (225 lb) LMP 07/28/2018 (Approximate) BMI 37.44 kg/m? GENERAL APPEARANCE: Well appearing, alert, in no acute distress, well-hydrated, well nourished.. SKIN: Skin color, texture, turgor normal, no suspicious rashes or lesions. EYES: Anicteric sclera. Pupils are equally round and reactive to light. Extraocular movements are intact. . NECK: Supple, no adenopathy; thyroid symmetric, normal size, no bruits. LUNGS: Lungs clear to auscultation. No wheezing, rhonchi, rales. HEART: RRR without murmur, gallop, or rubs. No ectopy. ABDOMEN: Obese, Abdomen soft, non-tender, non distended. Bowel sounds normal. No masses, ascites or hepatosplenomegaly. EXTREMITIES: No deformities, edema, skin discoloration, clubbing or cyanosis. NEUROLOGIC: Gait normal. Sensation and strength grossly intact.. ASSESSMENT/PLAN: 1. Abdominal pain, unspecified abdominal location - ICD9: 789.00, ICD10: R10.9 In upper abdomen after eating a full meal - ? gastroparesis 2. Hepatosplenomegaly - ICD9: 571.8, ICD10: R16.2 U/s abd 04/2018 The liver is echodense and enlarged. ?It measures 21 cm in cephalocaudal dimension (upper limit of normal is 16 cm). ?Echodense nature of the liver suggests hepatic steatosis 3. Elevated LFTs - ICD9: 790.6, ICD10: R94.5 Likely due to non-alcoholic fatty liver given u/s results and comorbidities (obesty, HTN, HPL and DM) 4. Gastroesophageal reflux disease, esophagitis presence not specified - ICD9: 530.81, ICD10: K21.9 (primary diagnosis) About 2-3 evenings a week even though she takes PPI No alarm s/sx. Check hepatitis serologies as ordered Upper Endoscopy * The benefits, alternatives, and risks of the procedure(s) including (but not exclusive to ) bleeding, perforation, allergic reaction(s) due to sedatives, need for hospitalization, need for transfusions, need for surgery, and likelihood of missing a polyp or neoplastic lesion, were explained to the patient/guardian/responsible accompanying adult who is agreeable. If above is normal would then schedule gastric emptying study Ricky Castaneda MD Referring Provider: SELF [200] Allergies As of Date: 08/18/2018 Noted Allergy Reaction BENEDRYL (DIPHENHYDRAMINE) 07/01/2009 14 - Other: See Comments Comments: Makes her feel jittery IV- DOXYCYCLINE 08/13/2006 11 - Vomiting IMITREX (SUMATRIPTAN SUCCINATE) 12/06/2009 Comments: chest pain PHENERGAN (PROMETHAZINE HCL) 06/14/2010 5 - Intolerance Comments: restless legs IV- TRAMADOL 07/05/2017 5 - Intolerance Date Reviewed: 08/18/2018 Reviewed by: Farhat Ruiz - Fully Assessed Reason for Visit: Abdominal Pain [1] GERD [548] Initial Consult [665] Cmt: enlarged liver and spleen Reason For Visit History Recorded Primary Visit Diagnosis:Gastroesophageal reflux disease, esophagitis presence not specified [K21.9] Other Visit Diagnoses:Abdominal pain, unspecified abdominal location [R10.9] Hepatosplenomegaly [R16.2] Elevated LFTs [R94.5] Order(s):JDHPI-5-HJVJJZLBX BL [SQAAT] Order #: [id number] FUTURE CERULOPLASMIN BLD [SQCERULO] Order #: [id number] FUTURE HEP A AB TOTAL [SQAHAVT] Order #: [id number] FUTURE HEP B CORE AB TOTAL [SQAHBCOT] Order #: [id number] FUTURE HEP B SURF AB QUANT [SQAHBSQ] Order #: [id number] FUTURE LARISSA BY IFA SCREEN [SQANAIFS] Order #: [id number] FUTURE SMOOTH MUSCLE AB SCR [SQSMTHS] Order #: [id number] FUTURE MITOCHONDRIAL AB PNL SCRN [SQMITO] Order #: [id number] FUTURE EGD [[id number]] Order #: [id number] FUTURE HEP C AB IA BLOOD [SQAHCV] Order #: [id number] FUTURE Prescriptions as of 08/18/2018 Sig: FLUCONAZOLE 150 MG TABLET Take 1 tablet by mouth one ti* GABAPENTIN 100 MG CAPSULE Take 2 capsules by mouth janay* PERFLUTREN LIPID MICROSPHERES* Inject 1.3 mL intravenously a* LEVOTHYROXINE 175 MCG TABLET Take 1 tablet by mouth once d* JANUVIA 100 MG TABLET TAKE 1 TABLET EVERY DAY ASCORBIC ACID (VITAMIN C) 500* Take 500 mg by mouth once babar* MELATONIN 10 MG CAPSULE Take 10 mg by mouth daily at * PANTOPRAZOLE 40 MG TABLET,DEL* Take 1 tablet by mouth once d* FAMOTIDINE 20 MG TABLET Take 1 tablet by mouth daily * BLOOD-GLUCOSE METER 1 Units once daily. LANCETS Use as instructed. Preferred * BLOOD SUGAR DIAGNOSTIC STRIPS Use as instructed. Insurance * METFORMIN 1,000 MG TABLET TAKE 1 TABLET TWICE DAILY WIT* FLUTICASONE 50 MCG/ACTUATION * Use 1 Harcourt in each nostril o* ASPIRIN 81 MG CHEWABLE TABLET Take 81 mg by mouth. CARVEDILOL 12.5 MG TABLET Take 1 tablet by mouth twice * FERROUS SULFATE 325 MG (65 MG* Take 1 tablet by mouth daily * ALBUTEROL SULFATE HFA 90 MCG/* Inhale 2 Puffs as instructed * ATORVASTATIN 20 MG TABLET Take 1 tablet by mouth once d* CLOPIDOGREL 75 MG TABLET Take 1 tablet by mouth once d* CHOLECALCIFEROL (VITAMIN D3) * Take 1 capsule by mouth once * LEVONORGESTREL 20 MCG/24 HR (* 1 Each by INTRAUTERINE route * BLOOD SUGAR DIAGNOSTIC STRIPS Test blood sugar(s) one times* LANCETS Test blood sugar(s) one times* Problem List As Of Date 08/18/2018 Noted Resolved Chest pain, unspecified [R07.9] INVALID FOR*11/21/2011 Essential hypertension, benign [I10] INVALID FOR*11/21/2011 Shortness of breath [R06.02] INVALID FOR*11/21/2011 Restless legs syndrome (RLS) [G25.81] INVALID FOR* Insomnia [G47.00] INVALID FOR* PLANTAR Fasciitis [M72.2] INVALID FOR*11/21/2011 Diarrhea [R19.7] INVALID FOR*09/29/2014 Hemorrhage of gastrointestinal tract [K92.2] INVALID FOR* Internal hemorrhoids without mention of complic*INVALID FOR*11/21/2011 Ganglion of joint [M67.40] INVALID FOR*11/21/2011 Irritable bowel syndrome [K58.9] INVALID FOR* PAP SMEAR OF CERVIX W ASCUS [R87.610] INVALID FOR* Cervical high risk human papillomavirus (HPV) D*INVALID FOR* Female stress incontinence [N39.3] INVALID FOR* Pain in limb [M79.609] INVALID FOR*11/21/2011 Calcaneal spur [M77.30] INVALID FOR*11/21/2011 Depressive disorder, not elsewhere classified [*INVALID FOR*11/21/2011 Microscopic hematuria [R31.29] INVALID FOR*11/21/2011 Pain in joint, pelvic region and thigh [M25.559]INVALID FOR*11/21/2011 Cholelithiasis NOS [K80.20] INVALID FOR*11/21/2011 Hypothyroid [E03.9] INVALID FOR* Ovarian cystic mass [N83.209] INVALID FOR*11/21/2011 Depression, major [F32.9] 11/21/2011 Panic attack [F41.0] INVALID FOR*11/21/2011 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] INVALID FOR* Backache, unspecified [M54.9] INVALID FOR*09/29/2014 Cervicalgia [M54.2] INVALID FOR*09/29/2014 Bipolar 2 disorder (HCC) [F31.81] INVALID FOR* Dysuria [R30.0] INVALID FOR*09/29/2014 Hematuria [R31.9] INVALID FOR* Urinary tract infection [N39.0] INVALID FOR*09/29/2014 Urgency of urination [R39.15] INVALID FOR*09/29/2014 Frequency of urination [R35.0] INVALID FOR*09/29/2014 Low back pain [M54.5] INVALID FOR* Family history of ovarian cancer [Z80.41] INVALID FOR* LADONNA (stress urinary incontinence, female) [N39.*INVALID FOR* Cystocele [GCG3560] INVALID FOR* Type 2 diabetes mellitus without complication (*INVALID FOR* Trigger middle finger of left hand [M65.332] INVALID FOR* Coronary atherosclerosis [I25.10] INVALID FOR* More... Essential hypertension [I10] INVALID FOR* Morbid obesity with BMI of 40.0-44.9, adult (HC*INVALID FOR* GERD (gastroesophageal reflux disease) [K21.9] INVALID FOR* TONIO (obstructive sleep apnea) [G47.33] INVALID FOR* More... Iron deficiency concern [E61.1] INVALID FOR* Presence of drug coated stent in LAD coronary a*INVALID FOR* Family history of ischemic heart disease [Z82.4*INVALID FOR* Presence of drug coated stent in right coronary*INVALID FOR* Vitamin D insufficiency [E55.9] INVALID FOR* Sprain of lumbar region-BWC [S33.5XXA] INVALID FOR* Anterior cervical lymphadenopathy [R59.0] INVALID FOR* More... Axillary lymphadenopathy [R59.0] INVALID FOR*08/14/2016 More... Onychomycosis [B35.1] INVALID FOR* Mild intermittent asthma without complication [*INVALID FOR* Prolonged QT interval [R94.31] INVALID FOR* Chronic pain of left knee [M25.562, G89.29] INVALID FOR* Iron deficiency anemia [D50.9] INVALID FOR* Gastroesophageal reflux disease [K21.9] INVALID FOR* Family history of coronary artery disease [Z82.*INVALID FOR* Hyperlipidemia [E78.5] INVALID FOR* Obesity, Class II, BMI 35-39.9 E66.9 [E66.9] INVALID FOR* Asthma [J45.909] INVALID FOR* History of cholecystectomy [Z90.49] INVALID FOR* History of thyroidectomy [Z98.890] INVALID FOR* alf (current) use of antithrombotics/anti*INVALID FOR* sign painter (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 [Z79.82] INVALID FOR* alf (current) use of oral hypoglycemic dr*INVALID FOR* Sprain of ankle [S93.409A] INVALID FOR* Lymphadenopathy, generalized [R59.1] INVALID FOR* Pain in joint, multiple sites [M25.50] INVALID FOR* Positive LARISSA (antinuclear antibody) [R76.8] INVALID FOR* Abdominal pain [R10.9] Hepatosplenomegaly [R16.2] Elevated LFTs [R94.5] Level of Service: NEW PATIENT VISIT LEVEL 4 [[id number]] Follow-up and Disposition History Recorded Encounter Status:Closed by RICKY CASTANEDA MD on 08/18/18 HISTORY PHYSICAL Observed: 08/18/2018 Status: COMPLETED Source: [place] 10:03 AM [facility] REPOSITORY HNO ID: [id number] Author: Farhat Ruiz Service: (none) Author Type: Physician Type: HANDP Filed: 08/18/2018 10:06 AM Note Text: Patient referred for ASCUS, positive HPV Pap. Had similar Pap in 2007 where biopsy was negative. Pap has been normal until now. Discussion regarding diagnosis and treatment of abnormal Pap smears done. Current Pap is also suggestive of hannah. Assessment - ASCUS with positive HPV Plan - Diflucan and repeat Pap in 2 months. If remains the same will refer for colposcopy/biopsy Farhat Ruiz MD CNOV Observed: 08/18/2018 Status: COMPLETED Source: [place] 9:30 AM [facility] REPOSITORY Office Visit (GO) MAHI TAN ([id number]) 1975 F Date Time Provider Department 08/18/18 9:30 AM FARHAT RUIZ During your visit today, we recorded the following information about you: Temperature Pulse Blood pressure Weight 97.8 degrees 73/minute 110/76 102.1 kg Height Last Period 1.651 m 07/28/[address] 08/18/2018 9:39 AM Signed Referred by PCP for abnormal pap test. Had abnormal pap approximately 4-5 years ago. Biopsy done at [facility]. Patient is for Mammogram and this has been orderd by PCP. Farhat Ruiz MD 08/18/2018 10:06 AM Signed Patient referred for ASCUS, positive HPV Pap. Had similar Pap in 2006 where biopsy was negative. Pap has been normal until now. Discussion regarding diagnosis and treatment of abnormal Pap smears done. Current Pap is also suggestive of hannah. Assessment - ASCUS with positive HPV Plan - Diflucan and repeat Pap in 2 months. If remains the same will refer for colposcopy/biopsy Farhat Ruiz MD Referring Provider: SELF [200] Allergies As of Date: 08/18/2018 Noted Allergy Reaction BENEDRYL (DIPHENHYDRAMINE) 07/01/2009 14 - Other: See Comments Comments: Makes her feel jittery IV- DOXYCYCLINE 08/13/2006 11 - Vomiting IMITREX (SUMATRIPTAN SUCCINATE) 12/06/2009 Comments: chest pain PHENERGAN (PROMETHAZINE HCL) 06/14/2010 5 - Intolerance Comments: restless legs IV- TRAMADOL 07/05/2017 5 - Intolerance Date Reviewed: 08/18/2018 Reviewed by: Farhat Ruiz - Fully Assessed Reason for Visit: Consult [173] Cmt: abnormal pap, HPV Primary Visit Diagnosis:ASCUS with positive high risk HPV cervical [R87.610, R87.810] Order(s):fluconazole (DIFLUCAN) 150 mg tabletTake 1 tablet by mouth one time only for 1 dose.Disp: 1 tabletRfl: 0 Prescriptions as of 08/18/2018 Sig: GABAPENTIN 100 MG CAPSULE Take 2 capsules by mouth janay* LEVOTHYROXINE 175 MCG TABLET Take 1 tablet by mouth once d* JANUVIA 100 MG TABLET TAKE 1 TABLET EVERY DAY ASCORBIC ACID (VITAMIN C) 500* Take 500 mg by mouth once babar* MELATONIN 10 MG CAPSULE Take 10 mg by mouth daily at * PANTOPRAZOLE 40 MG TABLET,DEL* Take 1 tablet by mouth once d* FAMOTIDINE 20 MG TABLET Take 1 tablet by mouth daily * BLOOD-GLUCOSE METER 1 Units once daily. LANCETS Use as instructed. Preferred * BLOOD SUGAR DIAGNOSTIC STRIPS Use as instructed. Insurance * METFORMIN 1,000 MG TABLET TAKE 1 TABLET TWICE DAILY WIT* FLUTICASONE 50 MCG/ACTUATION * Use 1 Harcourt in each nostril o* ASPIRIN 81 MG CHEWABLE TABLET Take 81 mg by mouth. CARVEDILOL 12.5 MG TABLET Take 1 tablet by mouth twice * FERROUS SULFATE 325 MG (65 MG* Take 1 tablet by mouth daily * ALBUTEROL SULFATE HFA 90 MCG/* Inhale 2 Puffs as instructed * ATORVASTATIN 20 MG TABLET Take 1 tablet by mouth once d* CLOPIDOGREL 75 MG TABLET Take 1 tablet by mouth once d* CHOLECALCIFEROL (VITAMIN D3) * Take 1 capsule by mouth once * LEVONORGESTREL 20 MCG/24 HR (* 1 Each by INTRAUTERINE route * BLOOD SUGAR DIAGNOSTIC STRIPS Test blood sugar(s) one times* LANCETS Test blood sugar(s) one times* FLUCONAZOLE 150 MG TABLET Take 1 tablet by mouth one ti* PERFLUTREN LIPID MICROSPHERES* Inject 1.3 mL intravenously a* Problem List As Of Date 08/18/2018 Noted Resolved Chest pain, unspecified [R07.9] INVALID FOR*11/21/2011 Essential hypertension, benign [I10] INVALID FOR*11/21/2011 Shortness of breath [R06.02] INVALID FOR*11/21/2011 Restless legs syndrome (RLS) [G25.81] INVALID FOR* Insomnia [G47.00] INVALID FOR* PLANTAR Fasciitis [M72.2] INVALID FOR*11/21/2011 Diarrhea [R19.7] INVALID FOR*09/29/2014 Hemorrhage of gastrointestinal tract [K92.2] INVALID FOR* Internal hemorrhoids without mention of complic*INVALID FOR*11/21/2011 Ganglion of joint [M67.40] INVALID FOR*11/21/2011 Irritable bowel syndrome [K58.9] INVALID FOR* PAP SMEAR OF CERVIX W ASCUS [R87.610] INVALID FOR* Cervical high risk human papillomavirus (HPV) D*INVALID FOR* Female stress incontinence [N39.3] INVALID FOR* Pain in limb [M79.609] INVALID FOR*11/21/2011 Calcaneal spur [M77.30] INVALID FOR*11/21/2011 Depressive disorder, not elsewhere classified [*INVALID FOR*11/21/2011 Microscopic hematuria [R31.29] INVALID FOR*11/21/2011 Pain in joint, pelvic region and thigh [M25.559]INVALID FOR*11/21/2011 Cholelithiasis NOS [K80.20] INVALID FOR*11/21/2011 Hypothyroid [E03.9] INVALID FOR* Ovarian cystic mass [N83.209] INVALID FOR*11/21/2011 Depression, major [F32.9] 11/21/2011 Panic attack [F41.0] INVALID FOR*11/21/2011 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] INVALID FOR* Backache, unspecified [M54.9] INVALID FOR*09/29/2014 Cervicalgia [M54.2] INVALID FOR*09/29/2014 Bipolar 2 disorder (HCC) [F31.81] INVALID FOR* Dysuria [R30.0] INVALID FOR*09/29/2014 Hematuria [R31.9] INVALID FOR* Urinary tract infection [N39.0] INVALID FOR*09/29/2014 Urgency of urination [R39.15] INVALID FOR*09/29/2014 Frequency of urination [R35.0] INVALID FOR*09/29/2014 Low back pain [M54.5] INVALID FOR* Family history of ovarian cancer [Z80.41] INVALID FOR* LADONNA (stress urinary incontinence, female) [N39.*INVALID FOR* Cystocele [TGJ2888] INVALID FOR* Type 2 diabetes mellitus without complication (*INVALID FOR* Trigger middle finger of left hand [M65.332] INVALID FOR* Coronary atherosclerosis [I25.10] INVALID FOR* More... Essential hypertension [I10] INVALID FOR* Morbid obesity with BMI of 40.0-44.9, adult (HC*INVALID FOR* GERD (gastroesophageal reflux disease) [K21.9] INVALID FOR* TONIO (obstructive sleep apnea) [G47.33] INVALID FOR* More... Iron deficiency concern [E61.1] INVALID FOR* Presence of drug coated stent in LAD coronary a*INVALID FOR* Family history of ischemic heart disease [Z82.4*INVALID FOR* Presence of drug coated stent in right coronary*INVALID FOR* Vitamin D insufficiency [E55.9] INVALID FOR* Sprain of lumbar region-BWC [S33.5XXA] INVALID FOR* Anterior cervical lymphadenopathy [R59.0] INVALID FOR* More... Axillary lymphadenopathy [R59.0] INVALID FOR*08/14/2016 More... Onychomycosis [B35.1] INVALID FOR* Mild intermittent asthma without complication [*INVALID FOR* Prolonged QT interval [R94.31] INVALID FOR* Chronic pain of left knee [M25.562, G89.29] INVALID FOR* Iron deficiency anemia [D50.9] INVALID FOR* Gastroesophageal reflux disease [K21.9] INVALID FOR* Family history of coronary artery disease [Z82.*INVALID FOR* Hyperlipidemia [E78.5] INVALID FOR* Obesity, Class II, BMI 35-39.9 E66.9 [E66.9] INVALID FOR* Asthma [J45.909] INVALID FOR* History of cholecystectomy [Z90.49] INVALID FOR* History of thyroidectomy [Z98.890] INVALID FOR* alf (current) use of antithrombotics/anti*INVALID FOR* alf (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 [Z79.82] INVALID FOR* 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 Had abnormal pap approximately 4-5 years ago. Biopsy done at [facility]. Patient is for Mammogram and this has been orderd by PCP. Prescriptions ordered this encounter Disp Refills Start End FLUCONAZOLE 150 MG TABLET 1 ta* 0 08/18/2018 08/18/2018 Route: ORAL Sig: Take 1 tablet by mouth one time only for 1 dose. Follow-up and Disposition History Recorded Encounter Status:Closed by FARHAT RUIZ MD on 08/18/18 PROGRESS Observed: 08/07/2018 Status: COMPLETED Source: [place] 3:21 PM [facility] HNO ID: [id number] Author: Cassandra Lockwood Service: (none) Author Type: Power And Recovery Superintendent Type: Progress Notes Filed: 08/07/2018 3:27 PM Note Text: ED Follow Up: Patient discharged from [facility] ED on 08/03/18. 1. How are you feeling since your ED visit? Left VM Have your symptoms improved or resolved? left VM 2. Were you prescribed any medications while in the ED or advised to stop any medication? left VM - If yes, were you able to fill your prescriptions? left VM -if stopped medication, what was the medication? na 3. Were you advised to schedule a follow up appointment with your provider? left VM - If no, Do you feel like you need an appointment scheduled? left VM - If yes, Do you need this scheduled now or has this already been scheduled? left VM 4. Were you able to contact the office or housing liaison provider prior to your ED visit? left VM 5. Is there anything else I can do for you today? Not applicable and left VM HECTORTOMARIXA Observed: 08/07/2018 Status: COMPLETED Source: [place] 12:00 AM [facility] REPOSITORY Patient Outreach (AGINTMLW) MAHI TAN ([id number]) 1975 F Date Time Provider Department 08/07/18 LESTER LOPEZ (HECTOR) AGINTMLW During your visit today, we recorded the following information about you: Cassandra Lockwood CMA 08/07/2018 3:27 PM Signed ED Follow Up: Patient discharged from [facility] ED on 08/03/18. 1. How are you feeling since your ED visit? Left VM Have your symptoms improved or resolved? left VM 2. Were you prescribed any medications while in the ED or advised to stop any medication? left VM - If yes, were you able to fill your prescriptions? left VM -if stopped medication, what was the medication? na 3. Were you advised to schedule a follow up appointment with your provider? left VM - If no, Do you feel like you need an appointment scheduled? left VM - If yes, Do you need this scheduled now or has this already been scheduled? left VM 4. Were you able to contact the office or housing liaison provider prior to your ED visit? left VM 5. Is there anything else I can do for you today? Not applicable and left VM Allergies As of Date: 08/07/2018 Noted Allergy Reaction BENEDRYL (DIPHENHYDRAMINE) 07/01/2009 14 - Other: See Comments Comments: Makes her feel jittery IV- DOXYCYCLINE 08/13/2006 11 - Vomiting IMITREX (SUMATRIPTAN SUCCINATE) 12/06/2009 Comments: chest pain PHENERGAN (PROMETHAZINE HCL) 06/14/2010 5 - Intolerance Comments: restless legs IV- TRAMADOL 07/05/2017 5 - Intolerance Date Reviewed: 08/05/2018 Reviewed by: Lester Rivers ([facility]) Jessica - Fully Assessed Reason for Visit: ED Follow Up [973] Prescriptions as of 08/07/2018 Sig: PERFLUTREN LIPID MICROSPHERES* Inject 1.3 mL intravenously a* PREDNISONE 20 MG TABLET Take 2 tablets by mouth once * ACYCLOVIR 800 MG TABLET Take 1 tablet by mouth five t* LEVOTHYROXINE 175 MCG TABLET Take 1 tablet by mouth once d* JANUVIA 100 MG TABLET TAKE 1 TABLET EVERY DAY ASCORBIC ACID (VITAMIN C) 500* Take 500 mg by mouth once babar* MELATONIN 10 MG CAPSULE Take 10 mg by mouth daily at * GABAPENTIN 100 MG CAPSULE Take 2 capsules by mouth janay* PANTOPRAZOLE 40 MG TABLET,DEL* Take 1 tablet by mouth once d* FAMOTIDINE 20 MG TABLET Take 1 tablet by mouth daily * BLOOD-GLUCOSE METER 1 Units once daily. LANCETS Use as instructed. Preferred * BLOOD SUGAR DIAGNOSTIC STRIPS Use as instructed. Insurance * METFORMIN 1,000 MG TABLET TAKE 1 TABLET TWICE DAILY WIT* FLUTICASONE 50 MCG/ACTUATION * Use 1 Harcourt in each nostril o* ASPIRIN 81 MG CHEWABLE TABLET Take 81 mg by mouth. CARVEDILOL 12.5 MG TABLET Take 1 tablet by mouth twice * FERROUS SULFATE 325 MG (65 MG* Take 1 tablet by mouth daily * ALBUTEROL SULFATE HFA 90 MCG/* Inhale 2 Puffs as instructed * ATORVASTATIN 20 MG TABLET Take 1 tablet by mouth once d* CLOPIDOGREL 75 MG TABLET Take 1 tablet by mouth once d* CHOLECALCIFEROL (VITAMIN D3) * Take 1 capsule by mouth once * LEVONORGESTREL 20 MCG/24 HR (* 1 Each by INTRAUTERINE route * BLOOD SUGAR DIAGNOSTIC STRIPS Test blood sugar(s) one times* LANCETS Test blood sugar(s) one times* Problem List As Of Date 08/07/2018 Noted Resolved Chest pain, unspecified [R07.9] INVALID FOR*11/21/2011 Essential hypertension, benign [I10] INVALID FOR*11/21/2011 Shortness of breath [R06.02] INVALID FOR*11/21/2011 Restless legs syndrome (RLS) [G25.81] INVALID FOR* Insomnia [G47.00] INVALID FOR* PLANTAR Fasciitis [M72.2] INVALID FOR*11/21/2011 Diarrhea [R19.7] INVALID FOR*09/29/2014 Hemorrhage of gastrointestinal tract [K92.2] INVALID FOR* Internal hemorrhoids without mention of complic*INVALID FOR*11/21/2011 Ganglion of joint [M67.40] INVALID FOR*11/21/2011 Irritable bowel syndrome [K58.9] INVALID FOR* PAP SMEAR OF CERVIX W ASCUS [R87.610] INVALID FOR* Cervical high risk human papillomavirus (HPV) D*INVALID FOR* Female stress incontinence [N39.3] INVALID FOR* Pain in limb [M79.609] INVALID FOR*11/21/2011 Calcaneal spur [M77.30] INVALID FOR*11/21/2011 Depressive disorder, not elsewhere classified [*INVALID FOR*11/21/2011 Microscopic hematuria [R31.29] INVALID FOR*11/21/2011 Pain in joint, pelvic region and thigh [M25.559]INVALID FOR*11/21/2011 Cholelithiasis NOS [K80.20] INVALID FOR*11/21/2011 Hypothyroid [E03.9] INVALID FOR* Ovarian cystic mass [N83.209] INVALID FOR*11/21/2011 Depression, major [F32.9] 11/21/2011 Panic attack [F41.0] INVALID FOR*11/21/2011 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] INVALID FOR* Backache, unspecified [M54.9] INVALID FOR*09/29/2014 Cervicalgia [M54.2] INVALID FOR*09/29/2014 Bipolar 2 disorder (HCC) [F31.81] INVALID FOR* Dysuria [R30.0] INVALID FOR*09/29/2014 Hematuria [R31.9] INVALID FOR* Urinary tract infection [N39.0] INVALID FOR*09/29/2014 Urgency of urination [R39.15] INVALID FOR*09/29/2014 Frequency of urination [R35.0] INVALID FOR*09/29/2014 Low back pain [M54.5] INVALID FOR* Family history of ovarian cancer [Z80.41] INVALID FOR* LADONNA (stress urinary incontinence, female) [N39.*INVALID FOR* Cystocele [VYR6275] INVALID FOR* Type 2 diabetes mellitus without complication (*INVALID FOR* Trigger middle finger of left hand [M65.332] INVALID FOR* Coronary atherosclerosis [I25.10] INVALID FOR* More... Essential hypertension [I10] INVALID FOR* Morbid obesity with BMI of 40.0-44.9, adult (HC*INVALID FOR* GERD (gastroesophageal reflux disease) [K21.9] INVALID FOR* TONIO (obstructive sleep apnea) [G47.33] INVALID FOR* More... Iron deficiency concern [E61.1] INVALID FOR* Presence of drug coated stent in LAD coronary a*INVALID FOR* Family history of ischemic heart disease [Z82.4*INVALID FOR* Presence of drug coated stent in right coronary*INVALID FOR* Vitamin D insufficiency [E55.9] INVALID FOR* Sprain of lumbar region-BWC [S33.5XXA] INVALID FOR* Anterior cervical lymphadenopathy [R59.0] INVALID FOR* More... Axillary lymphadenopathy [R59.0] INVALID FOR*08/14/2016 More... Onychomycosis [B35.1] INVALID FOR* Mild intermittent asthma without complication [*INVALID FOR* Prolonged QT interval [R94.31] INVALID FOR* Chronic pain of left knee [M25.562, G89.29] INVALID FOR* Iron deficiency anemia [D50.9] INVALID FOR* Gastroesophageal reflux disease [K21.9] INVALID FOR* Family history of coronary artery disease [Z82.*INVALID FOR* Hyperlipidemia [E78.5] INVALID FOR* Obesity, Class II, BMI 35-39.9 E66.9 [E66.9] INVALID FOR* Asthma [J45.909] INVALID FOR* History of cholecystectomy [Z90.49] INVALID FOR* History of thyroidectomy [Z98.890] INVALID FOR* alf (current) use of antithrombotics/anti*INVALID FOR* sign painter (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 [Z79.82] INVALID FOR* 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*INVALID FOR* Sprain of ankle [S93.409A] INVALID FOR* Lymphadenopathy, generalized [R59.1] INVALID FOR* Pain in joint, multiple sites [M25.50] INVALID FOR* Positive LARISSA (antinuclear antibody) [R76.8] INVALID FOR* Encounter Status:Closed by CASSANDRA LOCKWOOD on 08/07/18 CNCO Observed: 08/07/2018 Status: COMPLETED Source: [place] 12:00 AM [facility] REPOSITORY Letter Text [address] [address] Dept Dept Lester Lopez APRN.[facility] -[address] [place] [id number] - - August 07, 2018 Mahi Tan [address] [facility] [id number] 1975 Dear Ms. Tan, You have been referred to Dr. Hi to be evaluated and treated for Enlarged right pelvic sidewall node measuring 28 X [address] scan. Please call [phone] to schedule your appointment. [facility] affiliated providers will have access to your records. We ask that if you are not seeing a [facility] affiliated provider that you notify our office and provide the name of the provider and your appointment date. We will then verify if your insurance requires a prior authorization and will forward your records in a timely manner. Sincerely, Ernestian Roldan M.D. (Signed electronically to expedite mailing) CT CHEST FOR PULMONARY Observed: 08/05/2018 Status: F Source: [facility] EMBOLUS 4:23 PM HEALTH SYSTEM REPOSITORY Performed at [facility] APPROVED BY: Alexsander Silva MD EXAM TITLE: CT CHEST FOR PULMONARY EMBOLUS DATE: 08/05/2018 16:13 INDICATION: Left-sided chest discomfort. COMPARISON: Negative chest x-ray on 07/23/2018. Following the administration of intravenous contrast, a series of axial images were taken from the lung apices to the hemidiaphragms with coronal reconstructions performed to create a CT pulmonary angiogram. Contrast: 100 mL Omnipaque [address] Dose-Length Product: 480 mGy*cm CT Dose Reduction Employed: Automated exposure control (AEC) was used. Pulmonary arteries: No pulmonary embolus. Mediastinum: Heart size borderline enlarged. No pericardial effusion. Dense confluent coronary artery calcifications involving much of the LAD and proximal right coronary arteries. Thoracic aorta is not aneurysmally dilated. Pulmonary outflow tract is slightly dilated at 3.1 cm. This can be seen in the setting of pulmonary artery hypertension. Lungs: Lungs are clear. No infiltrates, effusions, or measurable nodules. Chest wall/bony structures: No significant additional findings. Limited images through the upper abdomen: No significant additional findings. IMPRESSION: No pulmonary embolus. Lungs clear. Heart size is borderline enlarged and there is dense confluent calcification consistent with coronary artery atherosclerotic disease involving the LAD and right coronary arteries. Mild prominence of pulmonary outflow tract which can be seen with pulmonary artery hypertension. Correlate clinically. PROGRESS Observed: 08/05/2018 Status: COMPLETED Source: [place] 8:49 AM [facility] REPOSITORY HNO ID: [id number] Author: Lester Perry) Jessica Service: (none) Author Type: Nurse Practitioner Type: Progress Notes Filed: 08/16/2018 8:58 AM Note Text: Subjective Mahi Tan is a 43 year old female here today for ER follow-up visit. I reviewed past medical, surgical, social, and family histories today and updated chart. Allergies, chronic medications, and supplements were also reviewed. Went to [facility] on 08/03/18 for worsening abdominal pain. CT scan was done which was okay. Discharged home. She also had rash to right back, burning, red. She was diagnosed with shingles. She is on acyclovir 800 mg 5 x day, prednisone 40 mg daily, and percocet as needed. She has taken only 1 percocet. Pain is tolerable. Prednisone is making her blood sugar go up and she feels yucky because of it. She continues to have abdominal discomfort, both upper quadrants. Feels distended. Feels like she may pop like a balloon if she lays on her side. She continues to have mid-sternal chest pressure. Chest discomfort started a few weeks ago, mid sternal, well localized. Occurs daily, not constant. Will last for a few hours. Denies cough, SOB, sweats, nausea. Discomfort coincides with sensation of lump in anterior chest wall or a pinching sensation to thoracic spine. Not sure if back pain is related to chest pain or not. She consulted with her data reduction technician, Dr. Samano, had EKG done. She states she was told possible pericarditis but really no cardiac cause for pain. Occasional hacky cough, not too bothersome No sob no wheezing Right back rash - no drainage, no swelling. More red. Still burning PAST MEDICAL HISTORY Diagnosis Date - Allergic rhinitis - Anxiety - Asthma no issues for several years - Bipolar 2 disorder (HCC) 11/21/2011 - CAD (coronary artery disease) - Calculus of gallbladder without mention of cholecystitis or obstruction 08/24/2009 - Cervical high risk human papillomavirus (HPV) DNA test positive - Common cold - Depressive disorder Dr. Cornell- [facility] - Diabetes ([facility]) - Diarrhea - Double vessel coronary artery disease 2 stents - Excessive or frequent menstruation Heavy periods Resolved - Female stress incontinence 01/13/2008 - Ganglion of joint 10/14/2007 - GERD (gastroesophageal reflux disease) - Hand pain - Hemorrhage of gastrointestinal tract, unspecified - History of intrauterine contraceptive device Mirena placed May 2015 Dr. Willy Schmid - Hyperlipidemia - Hypertension - Internal hemorrhoids without mention of complication - Irregular menstrual cycle Irregular periods Resolved - Irritable bowel syndrome Irritable bowel - Obesity - Obstructive sleep apnea Last PSG 07/22/18 = AHI 14.5 - Onychomycosis - Other specified acquired hypothyroidism - Ovarian cystic mass 06/07/2010 - Panic attack 07/18/2010 - Papanicolaou smear of cervix with atypical squamous cells of undetermined significance (ASC-US) - Paresthesia of hand - PLANTAR Fasciitis 07/15/2007 - PTSD (post-traumatic stress disorder) - Status post left heart catheterization 10/2014 PAST SURGICAL HISTORY Procedure Laterality Date - ANGIOPLASTY 11/23/14 [facility]-proximal LAD and proximal RCA 2 stents - CARDIAC CATHETERIZATION HX 11/20/14 [facility]-proximal RCA lesion - COLONOSCOP W/ OR W/O [facility] SPEC 06/09/14 Colonoscopy - COLONOSCOPY W/BX 08/13/07 - COLPOSCOPY (VAGINOSCOPY) 2006 Colposcopy - EXCIS PRIMARY GANGLION WRIST 11/04/07 LEFT WRIST, Dr. Alcantara - LAP CHOLECYSTECT/CHOLANGIOGRAPHY 09/05/2009 Normal IOC - LIGATE FALLOPIAN TUBE 10/1998 Tubal ligation, [facility]irt - PAST SURGICAL HISTORY OF Left 01/28/15 middle trigger finger release - S SLING DANIELLE HARVEY TOTL 1759 2013 monarc - THYROIDECTOMY 01/1994 goiter no cancer ALLERGIES Benedryl [Diphenhydramine]; Doxycycline; Imitrex [Sumatriptan Succinate]; Phenergan [Promethazine Hcl]; Tramadol MEDICATIONS oxyCODONE-acetaminophen (PERCOCET) 5-325 mg tablet Take 1 tablet by mouth every 6 hours as needed for up to 3 days. predniSONE (DELTASONE) 20 mg tablet Take 2 tablets by mouth once daily for 5 days. acyclovir (ZOVIRAX) 800 mg tablet Take 1 tablet by mouth five times daily for 7 days. levothyroxine (SYNTHROID) 175 mcg tablet Take 1 tablet by mouth once daily. JANUVIA 100 mg tablet TAKE 1 TABLET EVERY DAY ascorbic acid, vitamin C, (VITAMIN C) 500 mg tablet Take 500 mg by mouth once daily. melatonin 10 mg cap Take 10 mg by mouth daily at bedtime. gabapentin (NEURONTIN) 100 mg capsule Take 2 capsules by mouth daily at bedtime for [address] (PROTONIX) 40 mg tablet Take 1 tablet by mouth once daily. famotidine (PEPCID) 20 mg tablet Take 1 tablet by mouth daily at bedtime. Blood-Glucose Meter misc 1 Units once daily. Lancets lancets Use as instructed. Preferred insurance brand. blood sugar diagnostic (ONETOUCH ULTRA TEST) test strip Use as instructed. Insurance preferred brand. metFORMIN (GLUCOPHAGE) 1,000 mg tablet TAKE 1 TABLET TWICE DAILY WITH meals fluticasone (FLONASE) 50 mcg/actuation nasal spray Use 1 Harcourt in each nostril once daily. aspirin 81 mg chewable tablet Take 81 mg by mouth. carvedilol (COREG) 12.5 mg tablet Take 1 tablet by mouth twice daily. ferrous sulfate (IRON) 325 mg (65 mg iron) tablet Take 1 tablet by mouth daily with breakfast. albuterol HFA (VENTOLIN HFA) 90 mcg/actuation inhaler Inhale 2 Puffs as instructed every 4 hours as needed for Wheezing/Shortness of Breath. atorvastatin (LIPITOR) 20 mg tablet Take 1 tablet by mouth once daily. clopidogrel (PLAVIX) 75 mg tablet Take 1 tablet by mouth once daily. Cholecalciferol, Vitamin D3, 1,000 unit cap Take 1 capsule by mouth once daily. levonorgestrel (MIRENA) 20 mcg/24 hr (5 years) IUD 1 Each by INTRAUTERINE route continuous. blood sugar diagnostic (BLOOD GLUCOSE TEST) test strip Test blood sugar(s) one times daily. Dx: 250.00. Insulin: No Lancets lancets Test blood sugar(s) one times daily. Dx: 250.00. Insulin: No perflutren lipid microspheres (DEFINITY) 1.1 mg/mL injection (to be provided with echo procedure) Inject 1.3 mL intravenously as directed. iv contrast (will be provided with radiology test) CT Chest PE -Inject, intravenously, once for 1 dose.No IV access, insert saline lock prior to the beginning of sedation, infusion, injection of imaging exam. Discontinue saline lock post exam. If Pt. has a central line or IVAD, may access for administration according to line specific nursing protocol. Once exam is complete flush line and de-access according to line specific nursing protocol in the CT contrast administration guidelines link. FAMILY HISTORY Problem Relation Age of Onset - Cancer Mother /lung cancer/nonhodgkins lymphoma/Ovarian - Asthma Mother - Hyperlipidemia Mother - other (depressive disorder) Mother - Heart Father - Hyperlipidemia Father - Hypertension Father - other (cornary artery disease) Father heart attack and stents put in - Hypertension Brother - Blood Clots Brother Lungs - No Known Problems Brother - No Known Problems Brother - Osteoporosis Maternal Grandmother - Coronary Artery Disease Paternal Grandmother - Diabetes Paternal Grandmother - Coronary Artery Disease Paternal Grandfather - Hypertension Paternal Grandfather - Hypertension Son - Breast Cancer Other maternal great grandmother Social History Substance Use Topics - Smoking status: Never Smoker - Smokeless tobacco: Never Used - Alcohol use No Review of Systems Constitutional: Positive for malaise/fatigue. Negative for chills, diaphoresis and fever. HENT: Negative for congestion, ear discharge, ear pain and sore throat. Eyes: Negative for pain, discharge and redness. Respiratory: Negative for cough, shortness of breath and wheezing. Cardiovascular: Positive for chest pain. Negative for palpitations and leg swelling. Gastrointestinal: Positive for abdominal pain. Negative for blood in stool, constipation, diarrhea, nausea and vomiting. Skin: Positive for rash. Neurological: Negative for dizziness, tingling, tremors, sensory change, speech change, loss of consciousness, weakness and headaches. BP 118/80 Pulse 72 Temp 36.7 ?C (98.1 ?F) Resp 16 Ht 165.1 cm (5' 5) Wt 102.4 kg (225 lb 12.8 oz) BMI 37.58 kg/m? Objective Physical Exam Constitutional: She is oriented to person, place, and time and well-developed, well-nourished, and in no distress. Non-toxic appearance. Cardiovascular: Normal rate, regular rhythm and normal heart sounds. No murmur heard. Pulmonary/Chest: Effort normal and breath sounds normal. She has no wheezes. She has no rales. Abdominal: Soft. Normal appearance and bowel sounds are normal. She exhibits no distension, no abdominal bruit and no mass. There is no hepatosplenomegaly. There is tenderness in the right upper quadrant, epigastric area and left upper quadrant. There is no CVA tenderness. Neurological: She is oriented to person, place, and time. She has normal motor skills and normal sensation. She displays no weakness. Gait normal. Skin: Skin is warm and dry. Rash noted. No bruising noted. Rash is vesicular (Erythematous vesicular rash to right upper back. No edema. No open areas or drainage.). Component Latest Ref Rng AND Units 2018 WBC 4.8 - 10.8 thou/cmm 7.0 RBC 4.20 - 5.40 mil/cmm 4.37 HGB 12.0 - 16.0 g/dL 12.5 Hematocrit 37.0 - 47.0 % 37.5 MCV 81.0 - 99.0 fl 85.8 MCH 27.0 - 31.0 pg 28.6 MCHC 32.0 - 36.0 % 33.3 RDW 11.5 - 15.9 % 13.0 Platelet Count 150 - 400 thou/cmm 202 MPV 7.1 - 10.5 fl 10.5 Seg Neutrophil % 63.5 Lymphocyte % 26.1 Monocyte % 5.7 Eosinophil % 4.0 Basophil % 0.7 Abs. Neut(Anc) 3.00 - 5.67 thou/cmm 4.44 Abs. Lymph 1.50 - 3.65 thou/cmm 1.83 Abs. Hitchcock 0.20 - 1.00 thou/cmm 0.40 Abs. Eosin 0.00 - 0.41 thou/cmm 0.28 Abs. Baso 0.00 - 0.08 thou/cmm 0.05 Sodium 136 - 145 mEq/L 138 Potassium 3.5 - 5.1 mEq/L 3.9 Chloride 98 - 107 mEq/L 106 CO2 21 - 32 mEq/L 25 Glucose 70 - 99 mg/dL 147 (H) BUN 7 - 25 mg/dL 12 Creatinine 0.51 - 0.95 mg/dL 0.71 Calcium 8.5 - 10.1 mg/dL 9.1 Albumin 3.4 - 5.0 g/dL 3.9 Protein, Total 6.4 - 8.2 g/dL 7.2 AST 15 - 37 U/L 38 (H) ALT 14 - 63 U/L 45 Alkaline Phosphatase 46 - 116 U/L 108 Bilirubin, Total 0.2 - 1.0 mg/dL 0.6 Anion Gap 8 - 20 11 BUN/CREATININE RATIO 10 - 20 17 Lipase 73 - 393 U/L 139 eGFR >60mL/min/1.73m2 >60 Component Latest Ref Rng AND Units 2018 Color YELLOW Urine Appearance 1+ (HAZY) Glucose, Urine Negative NEGATIVE Ketones, Urine Negative NEGATIVE Hemoglobin, Urine Negative NEGATIVE Protein, Urine Negative NEGATIVE Nitrites Urine Negative NEGATIVE Bilirubin, Urine Negative NEGATIVE Specific [place], Ur 1.005 - 1.030 1.010 pH, Urine 5.0 - 8.0 5.5 Urobilinogen, Urine 0.0 - 1.0 EU/dL 0.2 Leukocytes Esterase Negative TRACE (A) WBC, Urine 0 - 5 /hpf 0-2 RBC, Urine 0 - 3 /hpf NONE EP Cells Urine 0 - 5 /hpf 2-5 Bacteria Urine (Manual) None FEW (A) HCG Qualitative, Urine Negative Negative ASSESSMENT/PLAN: 1. Chest pain, unspecified type - ICD9: 786.50, ICD10: R07.9 (primary diagnosis) Persistent So far EKG WNL with her data reduction technician. I encouraged her to continue f/u with Dr. Samano Chest x-ray 07/23/18 = linear atelectasis Check Echo Check CT chest to evaluate - ECHO - CT CHEST W IVCON PE - IV CONTRAST (RADIOLOGY PROCEDURE) 2. Cough - ICD9: 786.2, ICD10: R05 Chronic CT to evaluate - CT CHEST W IVCON PE 3. Abdominal bloating - ICD9: 787.3, ICD10: R14.0 ER work-up negative for acute issues. UA and labs unremarkable. CT abd/pelvis 08/03/18 = mild splenic enlargement (not new), stool, right pelvic lymphadenopathy Pelvic exam up to date, completed 07/28/18. Pap showing ASCUS with positive HPV, referral to [facility] for further evaluation Continue f/u with GI 4. Atelectasis - ICD9: 518.0, ICD10: J98.11 - CT CHEST W IVCON PE 5. Lymphadenopathy, abdominal - ICD9: 785.6, ICD10: R59.0 Referral to general surgery, Dr. Hi, patient known to him Evaluated lymph nodes found on CT abd - CONSULT TO GENERAL SURGERY 6. Herpes zoster without complications - ICD9: 053.9, ICD10: B02.9 Finish acyclovir Okay to stop prednisone d/t elevated blood sugars Symptoms mild, no need for further pain medications at this time F/U as needed Scheduled for DM visit on 08/25 Lester Lopez APRN.[facility] CNOV Observed: 08/05/2018 Status: COMPLETED Source: [place] 8:40 AM [facility] REPOSITORY Office Visit (CHARLINE) MAHI TAN ([id number]) 1975 F Date Time Provider Department 08/05/18 8:40 AM LESTER LOPEZ (RAYA OLIVIER During your visit today, we recorded the following information about you: Temperature Pulse Respiration Blood pressure 98.1 degrees 72/minute 16/minute 118/80 Weight Height 102.4 kg 1.651 m Gabo Mcginnis CMA 08/05/2018 8:43 AM Signed Pt wetn to ER on 08/03/18-dx with shingles upper right back. Was having pain in left side of abdomen when she went to ER, is still having this pain. Gabo MoralesJONY mon APRN.[facility] 08/16/2018 8:58 AM Signed Subjective Mahi Tan is a 43 year old female here today for ER follow-up visit. I reviewed past medical, surgical, social, and family histories today and updated chart. Allergies, chronic medications, and supplements were also reviewed. Went to [facility] on 08/03/18 for worsening abdominal pain. CT scan was done which was okay. Discharged home. She also had rash to right back, burning, red. She was diagnosed with shingles. She is on acyclovir 800 mg 5 x day, prednisone 40 mg daily, and percocet as needed. She has taken only 1 percocet. Pain is tolerable. Prednisone is making her blood sugar go up and she feels yucky because of it. She continues to have abdominal discomfort, both upper quadrants. Feels distended. Feels like she may pop like a balloon if she lays on her side. She continues to have mid-sternal chest pressure. Chest discomfort started a few weeks ago, mid sternal, well localized. Occurs daily, not constant. Will last for a few hours. Denies cough, SOB, sweats, nausea. Discomfort coincides with sensation of lump in anterior chest wall or a pinching sensation to thoracic spine. Not sure if back pain is related to chest pain or not. She consulted with her data reduction technician, Dr. Samano, had EKG done. She states she was told possible pericarditis but really no cardiac cause for pain. Occasional hacky cough, not too bothersome No sob no wheezing Right back rash - no drainage, no swelling. More red. Still burning PAST MEDICAL HISTORY Diagnosis Date - Allergic rhinitis - Anxiety - Asthma no issues for several years - Bipolar 2 disorder (HCC) 11/21/2011 - CAD (coronary artery disease) - Calculus of gallbladder without mention of cholecystitis or obstruction 08/24/2009 - Cervical high risk human papillomavirus (HPV) DNA test positive - Common cold - Depressive disorder Dr. Cornell- [facility] - Diabetes (HCC) - Diarrhea - Double vessel coronary artery disease 2 stents - Excessive or frequent menstruation Heavy periods Resolved - Female stress incontinence 01/13/2008 - Ganglion of joint 10/14/2007 - GERD (gastroesophageal reflux disease) - Hand pain - Hemorrhage of gastrointestinal tract, unspecified - History of intrauterine contraceptive device Mirena placed May 2015 Dr. Willy Schmid - Hyperlipidemia - Hypertension - Internal hemorrhoids without mention of complication - Irregular menstrual cycle Irregular periods Resolved - Irritable bowel syndrome Irritable bowel - Obesity - Obstructive sleep apnea Last PSG 07/22/18 = AHI 14.5 - Onychomycosis - Other specified acquired hypothyroidism - Ovarian cystic mass 06/07/2010 - Panic attack 07/18/2010 - Papanicolaou smear of cervix with atypical squamous cells of undetermined significance (ASC-US) - Paresthesia of hand - PLANTAR Fasciitis 07/15/2007 - PTSD (post-traumatic stress disorder) - Status post left heart catheterization 10/2014 PAST SURGICAL HISTORY Procedure Laterality Date - ANGIOPLASTY 11/23/14 [facility]-proximal LAD and proximal RCA 2 stents - CARDIAC CATHETERIZATION HX 11/20/14 [facility]-proximal RCA lesion - COLONOSCOP W/ OR W/O [facility] SPEC 06/09/14 Colonoscopy - COLONOSCOPY W/BX 08/13/07 - COLPOSCOPY (VAGINOSCOPY) 2006 Colposcopy - EXCIS PRIMARY GANGLION WRIST 11/04/07 LEFT WRIST, Dr. Alcantara - LAP CHOLECYSTECT/CHOLANGIOGRAPHY 09/05/2009 Normal IOC - LIGATE FALLOPIAN TUBE 10/1998 Tubal ligation, [facility]irt - PAST SURGICAL HISTORY OF Left 01/28/15 middle trigger finger release - S SLING DANIELLE HARVEY TOTL 4802 2013 monarc - THYROIDECTOMY 01/1994 goiter no cancer ALLERGIES Benedryl [Diphenhydramine]; Doxycycline; Imitrex [Sumatriptan Succinate]; Phenergan [Promethazine Hcl]; Tramadol MEDICATIONS oxyCODONE-acetaminophen (PERCOCET) 5-325 mg tablet Take 1 tablet by mouth every 6 hours as needed for up to 3 days. predniSONE (DELTASONE) 20 mg tablet Take 2 tablets by mouth once daily for 5 days. acyclovir (ZOVIRAX) 800 mg tablet Take 1 tablet by mouth five times daily for 7 days. levothyroxine (SYNTHROID) 175 mcg tablet Take 1 tablet by mouth once daily. JANUVIA 100 mg tablet TAKE 1 TABLET EVERY DAY ascorbic acid, vitamin C, (VITAMIN C) 500 mg tablet Take 500 mg by mouth once daily. melatonin 10 mg cap Take 10 mg by mouth daily at bedtime. gabapentin (NEURONTIN) 100 mg capsule Take 2 capsules by mouth daily at bedtime for [address] (PROTONIX) 40 mg tablet Take 1 tablet by mouth once daily. famotidine (PEPCID) 20 mg tablet Take 1 tablet by mouth daily at bedtime. Blood-Glucose Meter misc 1 Units once daily. Lancets lancets Use as instructed. Preferred insurance brand. blood sugar diagnostic (ONETOUCH ULTRA TEST) test strip Use as instructed. Insurance preferred brand. metFORMIN (GLUCOPHAGE) 1,000 mg tablet TAKE 1 TABLET TWICE DAILY WITH meals fluticasone (FLONASE) 50 mcg/actuation nasal spray Use 1 Harcourt in each nostril once daily. aspirin 81 mg chewable tablet Take 81 mg by mouth. carvedilol (COREG) 12.5 mg tablet Take 1 tablet by mouth twice daily. ferrous sulfate (IRON) 325 mg (65 mg iron) tablet Take 1 tablet by mouth daily with breakfast. albuterol HFA (VENTOLIN HFA) 90 mcg/actuation inhaler Inhale 2 Puffs as instructed every 4 hours as needed for Wheezing/Shortness of Breath. atorvastatin (LIPITOR) 20 mg tablet Take 1 tablet by mouth once daily. clopidogrel (PLAVIX) 75 mg tablet Take 1 tablet by mouth once daily. Cholecalciferol, Vitamin D3, 1,000 unit cap Take 1 capsule by mouth once daily. levonorgestrel (MIRENA) 20 mcg/24 hr (5 years) IUD 1 Each by INTRAUTERINE route continuous. blood sugar diagnostic (BLOOD GLUCOSE TEST) test strip Test blood sugar(s) one times daily. Dx: 250.00. Insulin: No Lancets lancets Test blood sugar(s) one times daily. Dx: 250.00. Insulin: No perflutren lipid microspheres (DEFINITY) 1.1 mg/mL injection (to be provided with echo procedure) Inject 1.3 mL intravenously as directed. iv contrast (will be provided with radiology test) CT Chest PE -Inject, intravenously, once for 1 dose.No IV access, insert saline lock prior to the beginning of sedation, infusion, injection of imaging exam. Discontinue saline lock post exam. If Pt. has a central line or IVAD, may access for administration according to line specific nursing protocol. Once exam is complete flush line and de-access according to line specific nursing protocol in the CT contrast administration guidelines link. FAMILY HISTORY Problem Relation Age of Onset - Cancer Mother /lung cancer/nonhodgkins lymphoma/Ovarian - Asthma Mother - Hyperlipidemia Mother - other (depressive disorder) Mother - Heart Father - Hyperlipidemia Father - Hypertension Father - other (cornary artery disease) Father heart attack and stents put in - Hypertension Brother - Blood Clots Brother Lungs - No Known Problems Brother - No Known Problems Brother - Osteoporosis Maternal Grandmother - Coronary Artery Disease Paternal Grandmother - Diabetes Paternal Grandmother - Coronary Artery Disease Paternal Grandfather - Hypertension Paternal Grandfather - Hypertension Son - Breast Cancer Other maternal great grandmother Social History Substance Use Topics - Smoking status: Never Smoker - Smokeless tobacco: Never Used - Alcohol use No Review of Systems Constitutional: Positive for malaise/fatigue. Negative for chills, diaphoresis and fever. HENT: Negative for congestion, ear discharge, ear pain and sore throat. Eyes: Negative for pain, discharge and redness. Respiratory: Negative for cough, shortness of breath and wheezing. Cardiovascular: Positive for chest pain. Negative for palpitations and leg swelling. Gastrointestinal: Positive for abdominal pain. Negative for blood in stool, constipation, diarrhea, nausea and vomiting. Skin: Positive for rash. Neurological: Negative for dizziness, tingling, tremors, sensory change, speech change, loss of consciousness, weakness and headaches. BP 118/80 Pulse 72 Temp 36.7 ?C (98.1 ?F) Resp 16 Ht 165.1 cm (5' 5) Wt 102.4 kg (225 lb 12.8 oz) BMI 37.58 kg/m? Objective Physical Exam Constitutional: She is oriented to person, place, and time and well-developed, well-nourished, and in no distress. Non-toxic appearance. Cardiovascular: Normal rate, regular rhythm and normal heart sounds. No murmur heard. Pulmonary/Chest: Effort normal and breath sounds normal. She has no wheezes. She has no rales. Abdominal: Soft. Normal appearance and bowel sounds are normal. She exhibits no distension, no abdominal bruit and no mass. There is no hepatosplenomegaly. There is tenderness in the right upper quadrant, epigastric area and left upper quadrant. There is no CVA tenderness. Neurological: She is oriented to person, place, and time. She has normal motor skills and normal sensation. She displays no weakness. Gait normal. Skin: Skin is warm and dry. Rash noted. No bruising noted. Rash is vesicular (Erythematous vesicular rash to right upper back. No edema. No open areas or drainage.). Component Latest Ref Rng AND Units 2018 WBC 4.8 - 10.8 thou/cmm 7.0 RBC 4.20 - 5.40 mil/cmm 4.37 HGB 12.0 - 16.0 g/dL 12.5 Hematocrit 37.0 - 47.0 % 37.5 MCV 81.0 - 99.0 fl 85.8 MCH 27.0 - 31.0 pg 28.6 MCHC 32.0 - 36.0 % 33.3 RDW 11.5 - 15.9 % 13.0 Platelet Count 150 - 400 thou/cmm 202 MPV 7.1 - 10.5 fl 10.5 Seg Neutrophil % 63.5 Lymphocyte % 26.1 Monocyte % 5.7 Eosinophil % 4.0 Basophil % 0.7 Abs. Neut(Anc) 3.00 - 5.67 thou/cmm 4.44 Abs. Lymph 1.50 - 3.65 thou/cmm 1.83 Abs. Hitchcock 0.20 - 1.00 thou/cmm 0.40 Abs. Eosin 0.00 - 0.41 thou/cmm 0.28 Abs. Baso 0.00 - 0.08 thou/cmm 0.05 Sodium 136 - 145 mEq/L 138 Potassium 3.5 - 5.1 mEq/L 3.9 Chloride 98 - 107 mEq/L 106 CO2 21 - 32 mEq/L 25 Glucose 70 - 99 mg/dL 147 (H) BUN 7 - 25 mg/dL 12 Creatinine 0.51 - 0.95 mg/dL 0.71 Calcium 8.5 - 10.1 mg/dL 9.1 Albumin 3.4 - 5.0 g/dL 3.9 Protein, Total 6.4 - 8.2 g/dL 7.2 AST 15 - 37 U/L 38 (H) ALT 14 - 63 U/L 45 Alkaline Phosphatase 46 - 116 U/L 108 Bilirubin, Total 0.2 - 1.0 mg/dL 0.6 Anion Gap 8 - 20 11 BUN/CREATININE RATIO 10 - 20 17 Lipase 73 - 393 U/L 139 eGFR >60mL/min/1.73m2 >60 Component Latest Ref Rng AND Units 2018 Color YELLOW Urine Appearance 1+ (HAZY) Glucose, Urine Negative NEGATIVE Ketones, Urine Negative NEGATIVE Hemoglobin, Urine Negative NEGATIVE Protein, Urine Negative NEGATIVE Nitrites Urine Negative NEGATIVE Bilirubin, Urine Negative NEGATIVE Specific [place], Ur 1.005 - 1.030 1.010 pH, Urine 5.0 - 8.0 5.5 Urobilinogen, Urine 0.0 - 1.0 EU/dL 0.2 Leukocytes Esterase Negative TRACE (A) WBC, Urine 0 - 5 /hpf 0-2 RBC, Urine 0 - 3 /hpf NONE EP Cells Urine 0 - 5 /hpf 2-5 Bacteria Urine (Manual) None FEW (A) HCG Qualitative, Urine Negative Negative ASSESSMENT/PLAN: 1. Chest pain, unspecified type - ICD9: 786.50, ICD10: R07.9 (primary diagnosis) Persistent So far EKG WNL with her data reduction technician. I encouraged her to continue f/u with Dr. Samano Chest x-ray 07/23/18 = linear atelectasis Check Echo Check CT chest to evaluate - ECHO - CT CHEST W IVCON PE - IV CONTRAST (RADIOLOGY PROCEDURE) 2. Cough - ICD9: 786.2, ICD10: R05 Chronic CT to evaluate - CT CHEST W IVCON PE 3. Abdominal bloating - ICD9: 787.3, ICD10: R14.0 ER work-up negative for acute issues. UA and labs unremarkable. CT abd/pelvis 08/03/18 = mild splenic enlargement (not new), stool, right pelvic lymphadenopathy Pelvic exam up to date, completed 07/28/18. Pap showing ASCUS with positive HPV, referral to [facility] for further evaluation Continue f/u with GI 4. Atelectasis - ICD9: 518.0, ICD10: J98.11 - CT CHEST W IVCON PE 5. Lymphadenopathy, abdominal - ICD9: 785.6, ICD10: R59.0 Referral to general surgery, Dr. Hi, patient known to him Evaluated lymph nodes found on CT abd - CONSULT TO GENERAL SURGERY 6. Herpes zoster without complications - ICD9: 053.9, ICD10: B02.9 Finish acyclovir Okay to stop prednisone d/t elevated blood sugars Symptoms mild, no need for further pain medications at this time F/U as needed Scheduled for DM visit on 08/25 Lester Lopez, [employer] W[employer] Referring Provider: SELF [[id number]] Allergies As of Date: 08/05/2018 Noted Allergy Reaction BENEDRYL (DIPHENHYDRAMINE) 07/01/2009 14 - Other: See Comments Comments: Makes her feel jittery IV- DOXYCYCLINE 08/13/2006 11 - Vomiting IMITREX (SUMATRIPTAN SUCCINATE) 12/06/2009 Comments: chest pain PHENERGAN (PROMETHAZINE HCL) 06/14/2010 5 - Intolerance Comments: restless legs IV- TRAMADOL 07/05/2017 5 - Intolerance Date Reviewed: 08/05/2018 Reviewed by: Lester Rivers (Arabic Teacher) Jessica - Fully Assessed Reason for Visit: ED Follow-up [821] Primary Visit Diagnosis:Chest pain, unspecified type [R07.9] Other Visit Diagnoses:Cough [R05] Abdominal bloating [R14.0] Atelectasis [J98.11] Lymphadenopathy, abdominal [R59.0] Herpes zoster without complications [B02.9] Order(s):ECHO [[id number]] Order #: [id number]: 1 FUTURE perflutren lipid microspheres (DEFINITY) 1.1 mg/mL injection (to be provided with echo procedure)Inject 1.3 mL intravenously as directed.Disp: 1.3 mLRfl: 0 CT CHEST W IVCON PE [[id number]] Order #: [id number] FUTURE [] iv contrast (will be provided with radiology test)CT Chest PE -Inject, intravenously, once for 1 dose.No IV access, insert saline lock prior to the beginning of sedation, infusion, injection of imaging exam. Discontinue saline lock post exam. If Pt. has a central line or IVAD, may access for administration according to line specific nursing protocol. Once exam is complete flush line and de-access according to line specific nursing protocol in the CT contrast administration guidelines link.Disp: 1 EachRfl: 0 CONSULT TO GENERAL SURGERY [9011] Order #: [id number]: 1 CT CHEST W IVCON PE [[id number]] Order #: [id number]. #:[id number] Prescriptions as of 08/05/2018 Sig: OXYCODONE-ACETAMINOPHEN 5 MG-* Take 1 tablet by mouth every * PREDNISONE 20 MG TABLET Take 2 tablets by mouth once * ACYCLOVIR 800 MG TABLET Take 1 tablet by mouth five t* LEVOTHYROXINE 175 MCG TABLET Take 1 tablet by mouth once d* JANUVIA 100 MG TABLET TAKE 1 TABLET EVERY DAY ASCORBIC ACID (VITAMIN C) 500* Take 500 mg by mouth once babar* MELATONIN 10 MG CAPSULE Take 10 mg by mouth daily at * X GABAPENTIN 100 MG CAPSULE Take 2 capsules by mouth janay* PANTOPRAZOLE 40 MG TABLET,DEL* Take 1 tablet by mouth once d* FAMOTIDINE 20 MG TABLET Take 1 tablet by mouth daily * BLOOD-GLUCOSE METER 1 Units once daily. LANCETS Use as instructed. Preferred * BLOOD SUGAR DIAGNOSTIC STRIPS Use as instructed. Insurance * METFORMIN 1,000 MG TABLET TAKE 1 TABLET TWICE DAILY WIT* FLUTICASONE 50 MCG/ACTUATION * Use 1 Harcourt in each nostril o* ASPIRIN 81 MG CHEWABLE TABLET Take 81 mg by mouth. CARVEDILOL 12.5 MG TABLET Take 1 tablet by mouth twice * FERROUS SULFATE 325 MG (65 MG* Take 1 tablet by mouth daily * ALBUTEROL SULFATE HFA 90 MCG/* Inhale 2 Puffs as instructed * ATORVASTATIN 20 MG TABLET Take 1 tablet by mouth once d* CLOPIDOGREL 75 MG TABLET Take 1 tablet by mouth once d* CHOLECALCIFEROL (VITAMIN D3) * Take 1 capsule by mouth once * LEVONORGESTREL 20 MCG/24 HR (* 1 Each by INTRAUTERINE route * BLOOD SUGAR DIAGNOSTIC STRIPS Test blood sugar(s) one times* LANCETS Test blood sugar(s) one times* PERFLUTREN LIPID MICROSPHERES* Inject 1.3 mL intravenously a* IV CONTRAST (RADIOLOGY PROCED* CT Chest PE -Inject, intraven* Problem List As Of Date 08/05/2018 Noted Resolved Chest pain, unspecified [R07.9] INVALID FOR*11/21/2011 Essential hypertension, benign [I10] INVALID FOR*11/21/2011 Shortness of breath [R06.02] INVALID FOR*11/21/2011 Restless legs syndrome (RLS) [G25.81] INVALID FOR* Insomnia [G47.00] INVALID FOR* PLANTAR Fasciitis [M72.2] INVALID FOR*11/21/2011 Diarrhea [R19.7] INVALID FOR*09/29/2014 Hemorrhage of gastrointestinal tract [K92.2] INVALID FOR* Internal hemorrhoids without mention of complic*INVALID FOR*11/21/2011 Ganglion of joint [M67.40] INVALID FOR*11/21/2011 Irritable bowel syndrome [K58.9] INVALID FOR* PAP SMEAR OF CERVIX W ASCUS [R87.610] INVALID FOR* Cervical high risk human papillomavirus (HPV) D*INVALID FOR* Female stress incontinence [N39.3] INVALID FOR* Pain in limb [M79.609] INVALID FOR*11/21/2011 Calcaneal spur [M77.30] INVALID FOR*11/21/2011 Depressive disorder, not elsewhere classified [*INVALID FOR*11/21/2011 Microscopic hematuria [R31.29] INVALID FOR*11/21/2011 Pain in joint, pelvic region and thigh [M25.559]INVALID FOR*11/21/2011 Cholelithiasis NOS [K80.20] INVALID FOR*11/21/2011 Hypothyroid [E03.9] INVALID FOR* Ovarian cystic mass [N83.209] INVALID FOR*11/21/2011 Depression, major [F32.9] 11/21/2011 Panic attack [F41.0] INVALID FOR*11/21/2011 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] INVALID FOR* Backache, unspecified [M54.9] INVALID FOR*09/29/2014 Cervicalgia [M54.2] INVALID FOR*09/29/2014 Bipolar 2 disorder (HCC) [F31.81] INVALID FOR* Dysuria [R30.0] INVALID FOR*09/29/2014 Hematuria [R31.9] INVALID FOR* Urinary tract infection [N39.0] INVALID FOR*09/29/2014 Urgency of urination [R39.15] INVALID FOR*09/29/2014 Frequency of urination [R35.0] INVALID FOR*09/29/2014 Low back pain [M54.5] INVALID FOR* Family history of ovarian cancer [Z80.41] INVALID FOR* LADONNA (stress urinary incontinence, female) [N39.*INVALID FOR* Cystocele [OKT6591] INVALID FOR* Type 2 diabetes mellitus without complication (*INVALID FOR* Trigger middle finger of left hand [M65.332] INVALID FOR* Coronary atherosclerosis [I25.10] INVALID FOR* More... Essential hypertension [I10] INVALID FOR* Morbid obesity with BMI of 40.0-44.9, adult (HC*INVALID FOR* GERD (gastroesophageal reflux disease) [K21.9] INVALID FOR* TONIO (obstructive sleep apnea) [G47.33] INVALID FOR* More... Iron deficiency concern [E61.1] INVALID FOR* Presence of drug coated stent in LAD coronary a*INVALID FOR* Family history of ischemic heart disease [Z82.4*INVALID FOR* Presence of drug coated stent in right coronary*INVALID FOR* Vitamin D insufficiency [E55.9] INVALID FOR* Sprain of lumbar region-BW [S33.5XXA] INVALID FOR* Anterior cervical lymphadenopathy [R59.0] INVALID FOR* More... Axillary lymphadenopathy [R59.0] INVALID FOR*08/14/2016 More... Onychomycosis [B35.1] INVALID FOR* Mild intermittent asthma without complication [*INVALID FOR* Prolonged QT interval [R94.31] INVALID FOR* Chronic pain of left knee [M25.562, G89.29] INVALID FOR* Iron deficiency anemia [D50.9] INVALID FOR* Gastroesophageal reflux disease [K21.9] INVALID FOR* Family history of coronary artery disease [Z82.*INVALID FOR* Hyperlipidemia [E78.5] INVALID FOR* Obesity, Class II, BMI 35-39.9 E66.9 [E66.9] INVALID FOR* Asthma [J45.909] INVALID FOR* History of cholecystectomy [Z90.49] INVALID FOR* History of thyroidectomy [Z98.890] INVALID FOR* alf (current) use of antithrombotics/anti*INVALID FOR* sign painter (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 [Z79.82] INVALID FOR* alf (current) use of oral hypoglycemic dr*INVALID FOR* Sprain of ankle [S93.409A] INVALID FOR* Lymphadenopathy, generalized [R59.1] INVALID FOR* Pain in joint, multiple sites [M25.50] INVALID FOR* Positive LARISSA (antinuclear antibody) [R76.8] INVALID FOR* Visit Notes: >> 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 Was having pain in left side of abdomen when she went to ER, is still having this pain. Gabo Mcginnis CMA Prescriptions ordered this encounter Disp Refills Start End PERFLUTREN LIPID MICROSPHERES 1.1 MG* 1.3 * 0 08/05/2018 08/05/2019 Class: In Office Route: INTRAVENOUS Sig: Inject 1.3 mL intravenously as directed. IV CONTRAST (RADIOLOGY PROCEDURE) 1 Ea* 0 08/05/2018 08/06/2018 Class: In Office Sig: CT Chest PE -Inject, intravenously, once for 1 dose.No IV access, insert saline lock prior to the beginning of sedation, infusion, injection of imaging exam. Discontinue saline lock post exam. If Pt. has a central line or IVAD, may access for administration according to line specific nursing protocol. Once exam is complete flush line and de-access according to line specific nursing protocol in the CT contrast administration guidelines link. Disposition: Return if symptoms worsen or fail to improve. Follow-up and Disposition History Recorded Letter Text [address] [address] Dept Dept Lester Lopez APRN.CNP [facility] -[address] [place] [id number] - - August 05, 2018 Mahi Sheth [address] [facility] [id number] To Whom It May Concern: This is to certify that Mahi has been under my care and had appointment today. If you have further questions regarding this patient's health status, please contact our office. Sincerely, Lester Lopez CNP (Signed electronically to expedite mailing) Encounter Status:Closed by LESTER LOPEZ CNP on 08/16/18 CT ABDOMEN AND PELVIS Observed: 2018 Status: F Source: [facility] W/O CONTRAST 12:25 PM HEALTH SYSTEM REPOSITORY Performed at [facility] APPROVED BY: Denver Barrera MD EXAM TITLE:CT ABDOMEN AND PELVIS W/O CONTRAST DATE:2018 12:10 COMPARISON: None. CLINICAL INDICATION/HISTORY: Left flank pain TECHNIQUE: CT abdomen and pelvis performed without oral or IV contrast. Sagittal and coronal reconstruction images were generated. CT Radiation dose: Integrated Dose-length product (DLP) for this visit = 1074 mGy*cm. CT Dose Reduction Employed: Automated exposure control (AEC) was used. FINDINGS: ABDOMINAL FINDINGS: There is a 4 mm noncalcified nodule at the lateral left lung base on image 3 of series 2. There are no urinary tract calculi. No hydronephrosis or perinephric stranding. Limited evaluation of the unenhanced visceral organs. There is no focal hepatic abnormality. The gallbladder is not visualized. No bile duct dilatation. No focal splenic abnormality is present. However, the spleen does appear enlarged, extending over a craniocaudal length of nearly 15 cm. No focal pancreatic abnormality is seen. There is a normal colleen earance of the adrenal glands. No renal mass. The appendix is normal. There is no bowel dilatation or wall thickening. Mild to moderate diffuse colonic stool. There are small and borderline enlarged retroperitoneal nodes. One of the largest nodes is seen within the left periaortic region on image 71 of series 2 measuring 10 mm in short axis. No acute bony abnormality. PELVIC FINDINGS: Nonspecific enlarged right pelvic sidewall node on image 149 of series 2 which measures 28 x 19 mm in size. Borderline enlarged femoral node on image 156 measuring 12 x 9 mm. The uterus is in midline position. There is an IUD. No obvious adnexal mass. There is no free fluid or acute bony abnormality. IMPRESSION: 1. No urinary tract calculi or findings of obstructive uropathy. 2. Mild splenic enlargement, extending over a craniocaudal length of 15 cm 3. Mild to moderate diffuse colonic stool. 4. Borderline enlarged retroperitoneal nodes. Also, there is an enlarged right pelvic sidewall node measuring 28 x 19 mm. This is a nonspecific finding although malignant lymphadenopathy is not excluded. URINE HCG, QUAL. Collected: 2018 Status: F Source: [facility] 12:13 PM HEALTH SYSTEM REPOSITORY TYPE CODE TESTS RESULT OUT OF REFERENCE UNITS RANGE LAB LUHCG(LOINC Negative ) HCG, Negative Qual. Urine Performed By: #### LHCG2 #### [place] [address] URINALYSIS ROUTINE Collected: 2018 Status: F Source: [facility] 12:13 PM HEALTH SYSTEM REPOSITORY TYPE CODE TESTS RESULT OUT OF RANGE REFERENCE UNITS LAB LCOLR(LOIN C) Urine Color YELLOW LAB LAPPU(LOIN C) Urine Appearance 1+ (HAZY) LAB LGLUR(LOIN Negative C) Glucose Urine NEGATIVE LAB LKETO(LOIN Negative C) Ketone Urine NEGATIVE LAB LHGBU(LOIN Negative C) Hemoglobin,Urin NEGATIVE e LAB LPRTU(LOIN Negative C) Protein Urine NEGATIVE LAB LNITR(LOIN Negative C) Nitrites Urine NEGATIVE LAB LBILU(LOIN Negative C) Bilirubin Urine NEGATIVE LAB LSPG(LOINC 1.005-1.030 ) Specific 1.010 [place], Ur LAB LPHUR(LOIN 5.0-8.0 C) pH,Urine 5.5 LAB LUROB(LOIN 0.0-1.0 EU/dL C) Urobilinogen,Ur 0.2 LAB LLEUK(LOIN Negative C) Abnormal Leukocytes TRACE Esterase LAB LWBCU(LOIN 0-5 /hpf C) WBC, Urine 0-2 LAB LRBCU(LOIN 0-3 /hpf C) RBC,Urine NONE LAB LEPIT(LOIN 0-5 /hpf C) Ep Cells Urine 2-5 LAB LBACT(LOIN None C) Abnormal Bacteria Urine FEW Performed By: #### LURIN #### [place] [address] ED NOTE Observed: 2018 Status: COMPLETED Source: [facility] 12:00 PM [facility] REPOSITORY HNO ID: [id number] Author: Jaz Aleman) REINA Lerma Service: Emergency Medicine Author Type: Registered Nurse Type: ED Notes Filed: 2018 12:00 PM Note Text: Patient informed: the name of medication, why we are giving it, possible side effects, what they may expect to feel, and was offered a chance to ask questions, prior to the administration of Zofran, Morphine. HEMOGRAM/DIFF Collected: 2018 Status: F Source: [facility] 12:00 HEALTH SYSTEM REPOSITORY TYPE CODE TESTS RESULT OUT OF REFERENCE UNITS RANGE LAB LWBC(LOINC 4.8-10.8 thou/cmm ) WBC 7.0 LAB LRBC(LOINC 4.20-5.40 mil/cmm ) RBC 4.37 LAB LHGB(LOINC 12.0-16.0 g/dL ) Hgb 12.5 LAB LHCT(LOINC 37.0-47.0 % ) Hct 37.5 LAB LMCV(LOINC 81.0-99.0 fl ) MCV 85.8 LAB LMCH(LOINC 27.0-31.0 pg ) MCH 28.6 LAB LMCHC(LOIN 32.0-36.0 % C) MCHC 33.3 LAB LRDW(LOINC 11.5-15.9 % ) RDW 13.0 LAB LPLT(LOINC 150-400 thou/cmm ) Platelet 202 LAB LMPV(LOINC 7.1-10.5 fl ) MPV 10.5 LAB LSEGT(LOIN % C) Seg Neutrophil 63.5 LAB LLYMP(LOIN % C) Lymphocyte 26.1 LAB LMNO(LOINC % ) Monocyte 5.7 LAB DORI(LOINC % ) Eosinophil 4.0 LAB LBASO(LOIN % C) Basophil 0.7 LAB LSEGN(LOIN 3.00-5.67 thou/cmm C) Abs. Neut (ANC) 4.44 LAB LLYMN(LOIN 1.50-3.65 thou/cmm C) Abs. Lymph 1.83 LAB LMONN(LOIN 0.20-1.00 thou/cmm C) Abs. Hitchcock 0.40 LAB LEOSN(LOIN 0.00-0.41 thou/cmm C) Abs. Eosin 0.28 LAB LBASN(LOIN 0.00-0.08 thou/cmm C) Abs. Baso 0.05 Performed By: #### LCBCD #### [facility] [address] [place] [id number] COMPREHENSIVE PANEL Collected: 2018 Status: F Source: [facility] 12:00 HEALTH SYSTEM REPOSITORY TYPE CODE TESTS RESULT OUT OF REFERENCE UNITS RANGE LAB DELIVERY ASSOCIATE(LOINC) 136-145 mEq/L Sodium Blood 138 LAB LK(LOINC) 3.5-5.1 mEq/L Potassium Blood 3.9 LAB LCL(LOINC) 98-107 mEq/L Chloride Blood 106 LAB LCO2(LOINC 21-32 mEq/L ) CO2 Blood 25 LAB LGLU(LOINC 70-99 mg/dL ) Glucose High Blood 147 LAB LBUN(LOINC 7-25 mg/dL ) BUN Blood 12 LAB LCREA(LOIN 0.51-0.95 mg/dL C) Creatinine Blood 0.71 LAB LCA(LOINC) 8.5-10.1 mg/dL Calcium Blood 9.1 LAB LALB(LOINC 3.4-5.0 g/dL ) Albumin Blood 3.9 LAB LTP(LOINC) 6.4-8.2 g/dL Total Protein 7.2 LAB LAST(LOINC 15-37 U/L ) AST-SGOT High Blood 38 LAB LALT(LOINC 14-63 U/L ) ALT-SGPT Blood 45 LAB LALKP(LOIN 46-116 U/L C) Alk Phosphatase 108 LAB LBILT(LOIN 0.2-1.0 mg/dL C) Total Bilirubin 0.6 LAB LANGP(LOIN 8-20 C) Anion Gap 11 LAB LBNCR(LOIN 10-20 C) BUN/Creatinine 17 Ratio Performed By: #### LP14 #### [place] [address] LIPASE BLOOD Collected: 2018 Status: F Source: [facility] 12:00 HEALTH SYSTEM REPOSITORY TYPE CODE TESTS RESULT OUT OF REFERENCE UNITS RANGE LAB LLIP(LOINC) 73-393 U/L Lipase Blood 139 Performed By: #### LLIP #### [place] [address] MDRD EGFR Collected: 2018 Status: F Source: [facility] 12:00 PM HEALTH SYSTEM REPOSITORY TYPE CODE TESTS RESULT OUT OF RANGE REFERENCE UNITS LAB LGFRF(LOINC >60mL/min/1.73m ) 2 eGFR >60 Result Comment: If the patient is , multiply the result by 1.210. Performed By: #### LGFR #### [place] [address] ED PROV NOTE Observed: 2018 Status: COMPLETED Source: [facility] 11:48 AM [facility] [place] REPOSITORY HNO ID: [id number] Author: Bharti West DO Service: Emergency Medicine Author Type: Physician Type: ED Provider Notes Filed: 2018 2:15 PM Note Text: ED Provider Note Patient Name: Mahi Tan SERVICE DATE: 08/03/18 History Patient presents with: Abdominal Pain Rash Mahi Tan is a 43 year old female with history of similar pain in the past and enlarged spleen, enlarged lymph nodes who presents with left flank/left upper abdominal pain. Patient has taken OTC meds with no relief of symptoms. - Symptom began 1 days prior to arrival. - Severity: moderate - Timing: constant - Quality: sharp, distended - Pain is exacerbated by movement and palpation. Pain does not radiate. - Pain is not exacerbated by eating. - Symptoms are associated with lumps on the left side of abdominal wall, rash on right upper back. - Symptoms are not associated with bloody diarrhea, bloody vomiting, constipation, diarrhea, fever, nausea, urinary symptoms, vaginal bleeding and vomiting. - Improved by nothing. - Not improved by anything. Patient has had issues with her abdomen and enlarged spleen, enlarged lymph nodes over the past one year. She is currently being worked up by rheumatology and just had 30 labs done and also is being evaluated by GI. She states that she had worsening of left sided pain last night when she laid down for bed, it is constant. No chest pain or shortness of breath. No urinary symptoms. No bloody or dark stools. She notes her told her she had a rash on the right upper back that was noticed 3 days ago. She was not aware of it. Little itchy when someone touches it, but not painful. She states she has been stressed out recently. PAST MEDICAL HISTORY Diagnosis Date - Allergic rhinitis - Anxiety - Asthma no issues for several years - Bipolar 2 disorder (HCC) 11/21/2011 - CAD (coronary artery disease) - Calculus of gallbladder without mention of cholecystitis or obstruction 08/24/2009 - Cervical high risk human papillomavirus (HPV) DNA test positive - Common cold - Depressive disorder Dr. [facility] - Diabetes (HCC) - Diarrhea - Double vessel coronary artery disease 2 stents - Excessive or frequent menstruation Heavy periods Resolved - Female stress incontinence 01/13/2008 - Ganglion of joint 10/14/2007 - GERD (gastroesophageal reflux disease) - Hand pain - Hemorrhage of gastrointestinal tract, unspecified - History of intrauterine contraceptive device Mirena placed May 2015 Dr. Willy Schmid - Hyperlipidemia - Hypertension - Internal hemorrhoids without mention of complication - Irregular menstrual cycle Irregular periods Resolved - Irritable bowel syndrome Irritable bowel - Obesity - Obstructive sleep apnea - Onychomycosis - Other specified acquired hypothyroidism - Ovarian cystic mass 06/07/2010 - Panic attack 07/18/2010 - Papanicolaou smear of cervix with atypical squamous cells of undetermined significance (ASC-US) - Paresthesia of hand - PLANTAR Fasciitis 07/15/2007 - PTSD (post-traumatic stress disorder) - Status post left heart catheterization 10/2014 PAST SURGICAL HISTORY Procedure Laterality Date - ANGIOPLASTY 11/23/14 [facility]proximal LAD and proximal RCA 2 stents - CARDIAC CATHETERIZATION HX 11/20/14 [facility]-proximal RCA lesion - COLONOSCOP W/ OR W/O [facility] SPEC 06/09/14 Colonoscopy - COLONOSCOPY W/BX 08/13/07 - COLPOSCOPY (VAGINOSCOPY) 2006 Colposcopy - EXCIS PRIMARY GANGLION WRIST 11/04/07 LEFT WRIST, Dr. Alcantara - LAP CHOLECYSTECT/CHOLANGIOGRAPHY 09/05/2009 Normal IOC - LIGATE FALLOPIAN TUBE 10/[facility]ST SURGICAL HISTORY OF Left 01/28/15 middle trigger finger release - S SLING DANIELLE HARVEY TOTScott 4848 2013 monarc - THYROIDECTOMY 01/1994 goiter no cancer FAMILY HISTORY Problem Relation Age of Onset - Cancer Mother /lung cancer/nonhodgkins lymphoma/Ovarian - Asthma Mother - Hyperlipidemia Mother - other (depressive disorder) Mother - Heart Father - Hyperlipidemia Father - Hypertension Father - other (cornary artery disease) Father heart attack and stents put in - Hypertension Brother - Blood Clots Brother Lungs - No Known Problems Brother - No Known Problems Brother - Osteoporosis Maternal Grandmother - Coronary Artery Disease Paternal Grandmother - Diabetes Paternal Grandmother - Coronary Artery Disease Paternal Grandfather - Hypertension Paternal Grandfather - Hypertension Son - Breast Cancer Other maternal great grandmother Social History Social History Main Topics - Smoking status: Never Smoker - Smokeless tobacco: Never Used - Alcohol use No - Drug use: No Comment: no reported history - Sexual activity: Yes Partners: Male control/ protection: Surgical, Tubal Ligation ALLERGIES Allergen Reactions - Benedryl [Diphenhyd* Other: See Comments Makes her feel jittery IV- - Doxycycline Vomiting - Imitrex [Sumatripta* chest pain - Phenergan [Prometha* Intolerance restless legs IV- - Tramadol Intolerance Review of Systems Constitutional: Negative for chills and fever. HENT: Negative for sore throat and trouble swallowing. Respiratory: Negative for cough and shortness of breath. Cardiovascular: Negative for chest pain and leg swelling. Gastrointestinal: Positive for abdominal pain. Negative for anal bleeding, blood in stool, constipation, diarrhea, nausea and vomiting. Genitourinary: Positive for flank pain. Negative for dysuria and hematuria. Musculoskeletal: Negative for back pain and neck pain. Skin: Positive for rash. Negative for color change, pallor and wound. Allergic/Immunologic: Negative for immunocompromised state. Neurological: Negative for weakness and numbness. Psychiatric/Behavioral: Negative for agitation and confusion. Physical Exam BP 129/82 Pulse 72 Temp (Src) 97.6 (Temporal Artery) Resp 16 Ht 5' 5 (1.65m) Wt 235 lb (106.6kg) SpO2 99% BMI 39.11 kg/(m2). Physical Exam Constitutional: She is oriented to person, place, and time. She appears well-developed and well-nourished. No distress. HENT: Head: Normocephalic and atraumatic. Right Ear: External ear normal. Left Ear: External ear normal. Eyes: Pupils are equal, round, and reactive to light. Conjunctivae are normal. No scleral icterus. Neck: Normal range of motion. No JVD present. Cardiovascular: Normal rate, regular rhythm and intact distal pulses. Pulmonary/Chest: Effort normal and breath sounds normal. No stridor. Abdominal: Soft. Normal appearance and bowel sounds are normal. She exhibits no distension. There is tenderness in the left upper quadrant. There is no rigidity, no rebound, no guarding, no CVA tenderness, no tenderness at McBurney's point and negative Harris's sign. Musculoskeletal: She exhibits no edema. Back: Focal area of vesicles right upper back. No tenderness. No crepitus. No cellulitis or redness. Neurological: She is alert and oriented to person, place, and time. No cranial nerve deficit. Skin: Skin is warm and dry. Capillary refill takes less than 2 seconds. Rash noted. She is not diaphoretic. No erythema. No pallor. Psychiatric: She has a normal mood and affect. Her behavior is normal. Nursing note and vitals reviewed. Diagnostic Testing ED Labs Ordered and Reviewed - No data to display Procedures ED Course / Clinical Impression Clinical Impressions as of 1407 Left flank pain Herpes zoster without complication, right upper back Spleen enlarged Pelvic lymphadenopathy Retroperitoneal lymphadenopathy MDM / Disposition / Plan Labs and imaging ordered. I discussed results with the patient. ? Shingles right upper back. Will do acyclovir and short course of steroids. Will treat her abdominal pain symptomatically with pain medication. OARRS negative for recent narcotic scripts. Instructed on reasons to return to the ED, otherwise follow up with primary and specialists. Disposition The patient was discharged. Counseled patient regarding radiology results, lab results and suspected diagnosis. As well as the need for follow-up. Discharged home with verbal and written instructions. They were instructed to return as needed for persistent or worsening symptoms or any new concerns. Condition at disposition is stable. SIGNATURE: DO Bharti Rainey DO 08/03/18 1415 ED NOTE Observed: 2018 Status: COMPLETED Source: [place] 11:36 AM [facility] [place] REPOSITORY HNO ID: [id number] Author: Jaz GuilloryRn) REINA Lerma Service: Emergency Medicine Author Type: Registered Nurse Type: ED Notes Filed: 2018 11:36 AM Note Text: Pt reports left sided abd pain and distention she noticed a couple of days ago. Pt also reports rash right upper back. Reports hx of chickenpox as a child Observed: 2018 Status: F Source: [facility] CULT URINE 10:13 AM HEALTH SYSTEM REPOSITORY Test performed at [facility] Mixed skin chilo. No further identification or susceptibility testing will be performed. Please submit a new specimen. Plates will be held for 5 days. Colonies suspicious for Group B Streptococcus present. If patient is , contact lab for further workup. [phone] Performed By: #### C_URI #### [place] [address] OBSOLETE Observed: 07/29/2018 Status: COMPLETED Source: [place] 12:00 AM [facility] REPOSITORY Refill (AGFAMPLE) MAHI TAN ([id number]) 1975 F Date Time Provider Department 07/29/18 LESTER LOPEZ ([facility]) CHARLINE During your visit today, we recorded the following information about you: Helen Hopper LPN 07/29/2018 2:28 PM Signed Last visit 07-28-18 Next visit 08-25-18 Pharmacy electronically requests the following refill(s) Pending Prescriptions Disp Refills LEVOTHYROXINE 175 MCG TABLET 30 tablet 2 Sig: Take 1 tablet by mouth once daily. ESPINOZA: Yes JANUVIA 100 MG TABLET 30 tablet 2 Sig: TAKE 1 TABLET EVERY DAY ESPINOZA: Yes Helen Hopper LPN Allergies As of Date: 07/29/2018 Noted Allergy Reaction BENEDRYL (DIPHENHYDRAMINE) 07/01/2009 14 - Other: See Comments Comments: Makes her feel jittery IV- DOXYCYCLINE 08/13/2006 11 - Vomiting IMITREX (SUMATRIPTAN SUCCINATE) 12/06/2009 Comments: chest pain PHENERGAN (PROMETHAZINE HCL) 06/14/2010 5 - Intolerance Comments: restless legs IV- TRAMADOL 07/05/2017 5 - Intolerance Date Reviewed: 07/28/2018 [facility]: [facility] Ras - Fully Assessed Reason for Visit: Refill Request [94] Order(s):levothyroxine (SYNTHROID) 175 mcg tabletTake 1 tablet by mouth once daily.Disp: 30 tabletRfl: 2 JANUVIA 100 mg tabletTAKE 1 TABLET EVERY DAYDisp: 30 tabletRfl: 2 Prescriptions as of 07/29/2018 Sig: LEVOTHYROXINE 175 MCG TABLET Take 1 tablet by mouth once d* JANUVIA 100 MG TABLET TAKE 1 TABLET EVERY DAY ASCORBIC ACID (VITAMIN C) 500* Take 500 mg by mouth once babar* MELATONIN 10 MG CAPSULE Take 10 mg by mouth daily at * SUPER CALCIUM ORAL Take by mouth. GABAPENTIN 100 MG CAPSULE Take 2 capsules by mouth janay* PANTOPRAZOLE 40 MG TABLET,DEL* Take 1 tablet by mouth once d* CYCLOBENZAPRINE 10 MG TABLET Take 10 mg by mouth twice babar* FAMOTIDINE 20 MG TABLET Take 1 tablet by mouth daily * BLOOD-GLUCOSE METER 1 Units once daily. LANCETS Use as instructed. Preferred * BLOOD SUGAR DIAGNOSTIC STRIPS Use as instructed. Insurance * METFORMIN 1,000 MG TABLET TAKE 1 TABLET TWICE DAILY WIT* FLUTICASONE 50 MCG/ACTUATION * Use 1 Harcourt in each nostril o* ASPIRIN 81 MG CHEWABLE TABLET Take 81 mg by mouth. CARVEDILOL 12.5 MG TABLET Take 1 tablet by mouth twice * FERROUS SULFATE 325 MG (65 MG* Take 1 tablet by mouth daily * ALBUTEROL SULFATE HFA 90 MCG/* Inhale 2 Puffs as instructed * ATORVASTATIN 20 MG TABLET Take 1 tablet by mouth once d* CLOPIDOGREL 75 MG TABLET Take 1 tablet by mouth once d* CHOLECALCIFEROL (VITAMIN D3) * Take 1 capsule by mouth once * LEVONORGESTREL 20 MCG/24 HR (* 1 Each by INTRAUTERINE route * BLOOD SUGAR DIAGNOSTIC STRIPS Test blood sugar(s) one times* LANCETS Test blood sugar(s) one times* Problem List As Of Date 07/29/2018 Noted Resolved Chest pain, unspecified [R07.9] INVALID FOR*11/21/2011 Essential hypertension, benign [I10] INVALID FOR*11/21/2011 Shortness of breath [R06.02] INVALID FOR*11/21/2011 Restless legs syndrome (RLS) [G25.81] INVALID FOR* Insomnia [G47.00] INVALID FOR* PLANTAR Fasciitis [M72.2] INVALID FOR*11/21/2011 Diarrhea [R19.7] INVALID FOR*09/29/2014 Hemorrhage of gastrointestinal tract [K92.2] INVALID FOR* Internal hemorrhoids without mention of complic*INVALID FOR*11/21/2011 Ganglion of joint [M67.40] INVALID FOR*11/21/2011 Irritable bowel syndrome [K58.9] INVALID FOR* PAP SMEAR OF CERVIX W ASCUS [R87.610] INVALID FOR* Cervical high risk human papillomavirus (HPV) D*INVALID FOR* Female stress incontinence [N39.3] INVALID FOR* Pain in limb [M79.609] INVALID FOR*11/21/2011 Calcaneal spur [M77.30] INVALID FOR*11/21/2011 Depressive disorder, not elsewhere classified [*INVALID FOR*11/21/2011 Microscopic hematuria [R31.29] INVALID FOR*11/21/2011 Pain in joint, pelvic region and thigh [M25.559]INVALID FOR*11/21/2011 Cholelithiasis NOS [K80.20] INVALID FOR*11/21/2011 Hypothyroid [E03.9] INVALID FOR* Ovarian cystic mass [N83.209] INVALID FOR*11/21/2011 Depression, major [F32.9] 11/21/2011 Panic attack [F41.0] INVALID FOR*11/21/2011 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] INVALID FOR* Backache, unspecified [M54.9] INVALID FOR*09/29/2014 Cervicalgia [M54.2] INVALID FOR*09/29/2014 Bipolar 2 disorder (HCC) [F31.81] INVALID FOR* Dysuria [R30.0] INVALID FOR*09/29/2014 Hematuria [R31.9] INVALID FOR* Urinary tract infection [N39.0] INVALID FOR*09/29/2014 Urgency of urination [R39.15] INVALID FOR*09/29/2014 Frequency of urination [R35.0] INVALID FOR*09/29/2014 Low back pain [M54.5] INVALID FOR* Family history of ovarian cancer [Z80.41] INVALID FOR* LADONNA (stress urinary incontinence, female) [N39.*INVALID FOR* Cystocele [XRS6797] INVALID FOR* Type 2 diabetes mellitus without complication (*INVALID FOR* Trigger middle finger of left hand [M65.332] INVALID FOR* Coronary atherosclerosis [I25.10] INVALID FOR* More... Essential hypertension [I10] INVALID FOR* Morbid obesity with BMI of 40.0-44.9, adult (HC*INVALID FOR* GERD (gastroesophageal reflux disease) [K21.9] INVALID FOR* TONIO (obstructive sleep apnea) [G47.33] INVALID FOR* More... Iron deficiency concern [E61.1] INVALID FOR* Presence of drug coated stent in LAD coronary a*INVALID FOR* Family history of ischemic heart disease [Z82.4*INVALID FOR* Presence of drug coated stent in right coronary*INVALID FOR* Vitamin D insufficiency [E55.9] INVALID FOR* Sprain of lumbar region-[facility] [S33.5XXA] INVALID FOR* Anterior cervical lymphadenopathy [R59.0] INVALID FOR* More... Axillary lymphadenopathy [R59.0] INVALID FOR*08/14/2016 More... 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 If too soon, we will put new RX on hold for next cycle. Route: ORAL Sig: Take 1 tablet by mouth once daily. JANUVIA 100 MG TABLET 30 t* 2 07/29/2018 Cmt: Med-sync patient. If too soon, we will put new RX on hold for next cycle. Sig: TAKE 1 TABLET EVERY DAY Medications Discontinued During This Encounter levothyroxine (SYNTHROID) 175 mcg ta* 30 t* 5 01/28/2018 07/29/2018 Route: ORAL Sig: Take 1 tablet by mouth once daily. Disc: Reason for discontinue is not on file. JANUVIA 100 mg tablet 30 t* 5 01/28/2018 07/29/2018 Sig: TAKE 1 TABLET EVERY DAY Disc: Reason for discontinue is not on file. Encounter Status:Closed by LESTER LOPEZ CNP on 07/29/18 HPV HIGH RISK Collected: 07/28/2018 Status: F Source: [facility] 10:00 AM HEALTH SYSTEM REPOSITORY TYPE CODE TESTS RESULT OUT OF REFERENCE UNITS RANGE LAB PNUM2([facility] ) Cytology Case [id number] Number LAB HPVR2([facility] ) HPV High Risk SEE BELOW Result Comment: HPV HighRisk Type 16 SEE BELOW Negative for HPV DNA high risk type 16 by PCR. HPV HighRisk Type 18 SEE BELOW Negative for HPV DNA high risk type 18 by PCR. HPV HighRisk Other SEE BELOW AB Positive for one or more of the following HPV DNA high risk types: 31,33,35,39, 45,51,52,56,58,59,66,68 by PCR(*) This test was developed and its performance characteristics determined by [facility] [place] ([facility]). It has not been cleared or approved by the FDA. [facility] is regulated under CLIA as qualified to perform high-complexity testing. This test is used for clinical purposes. It should not be regarded as investigational or for research. Performing Laboratory: [place] [address] Performed By: #### HPVRX #### [place] [address] CNOV Observed: 07/28/2018 Status: COMPLETED Source: [place] 9:20 AM [facility] REPOSITORY Office Visit (AGFAMPLE) MAHI TAN ([id number]) 1975 F Date Time Provider Department 07/28/18 9:20 AM LESTER LOPEZ ([facility]) [place] During your visit today, we recorded the following information about you: Temperature Pulse Respiration Blood pressure 98.2 degrees 72/minute 16/minute 124/78 Weight Height 102.8 kg 1.651 m Lester Lopez APRN.CNP 07/28/2018 10:43 AM Signed Subjective HPI Mahi Tan is a 42 year old female here today for an annual physical. I reviewed her past medical, surgical, social, and family histories today and updated chart. Allergies, chronic medications, and supplements were also reviewed and her list is now up to date. Concern(s) today include: Chest and back discomfort. Continued fatigue, generalized joint pain, swollen lymph nodes. Saw a schedule announcer, lots of labs done Chest discomfort started a few weeks ago, mid sternal, well localized. Occurs daily, not constant. Will last for a few hours. Denies cough, SOB, sweats, nausea. Discomfort coincides with sensation of lump in anterior chest wall or a pinching sensation to thoracic spine. Not sure if back pain is related to chest pain or not. Saw data reduction technician and EKG normal, possible pericarditis. Chest x-ray done per schedule announcer showing atelectasis. Sloughing of inner cheeks - schedule announcer suggested culture. May need hematology or infectious disease consult. Gets overheated at night but not too sweaty. Sees GI end of the month for GERD. Fasting blood sugars have been elevated 130s-150s. Eating habits have been consistent, maybe a little less since she's been tired. T4 L4 MENSTRUAL HISTORY LMP: Sporadic, spotting a day or two, 2 weeks ago Patient on HRT: No Ever used HRT: No Has been on control pills in the past SEXUAL HISTORY: Sexually active with CONTRACEPTION: IUD inserted 07/19/2015 for heavy bleeding, per Dr. Gambino Tubal ligation Hx of abnormal pap: Yes 05/2016 HPV positive, Pap normal 07/23/18 HIV negative VAGINAL SYMPTOMS: Denies abnormal discharge, itching, pain. Denies pain with sex. BREAST: Denies lumps, nipple discharge, and pain. Last Mammogram 06/2016 abnormal, then ultrasound was normal. URINARY SYMPTOMS: Denies dysuria, urgency, frequency, hematuria. Do you experience urinary incontinence? No Had bladder sling and this helped a lot FAMILY HISTORY: Breast Cancer: Yes Uterine Cancer: No Cervical Cancer: Yes - mother Ovarian Cancer: No Osteoporosis: Maternal grandmother maybe. PAST MEDICAL HISTORY Diagnosis Date - Allergic rhinitis - Anxiety - Asthma no issues for several years - Bipolar 2 disorder (HCC) 11/21/2011 - CAD (coronary artery disease) - Calculus of gallbladder without mention of cholecystitis or obstruction 08/24/2009 - Cervical high risk human papillomavirus (HPV) DNA test positive - Common cold - Depressive disorder Dr. Cornell- [facility] - Diabetes ([facility]) - Diarrhea - Double vessel coronary artery disease 2 stents - Excessive or frequent menstruation Heavy periods Resolved - Female stress incontinence 01/13/2008 - Ganglion of joint 10/14/2007 - GERD (gastroesophageal reflux disease) - Hand pain - Hemorrhage of gastrointestinal tract, unspecified - History of intrauterine contraceptive device Mirena placed May 2015 Dr. Willy Schmid - Hyperlipidemia - Hypertension - Internal hemorrhoids without mention of complication - Irregular menstrual cycle Irregular periods Resolved - Irritable bowel syndrome Irritable bowel - Obesity - Obstructive sleep apnea - Onychomycosis - Other specified acquired hypothyroidism - Ovarian cystic mass 06/07/2010 - Panic attack 07/18/2010 - Papanicolaou smear of cervix with atypical squamous cells of undetermined significance (ASC-US) - Paresthesia of hand - PLANTAR Fasciitis 07/15/2007 - PTSD (post-traumatic stress disorder) - Status post left heart catheterization 10/2014 PAST SURGICAL HISTORY Procedure Laterality Date - ANGIOPLASTY 11/23/14 [facility]-proximal LAD and proximal RCA 2 stents - CARDIAC CATHETERIZATION HX 11/20/14 [facility]prox[facility] Colonoscopy - COLONOSCOPY W/BX 08/13/07 - COLPOSCOPY (VAGINOSCOPY) 2006 Colposcopy - EXCIS PRIMARY GANGLION WRIST 11/04/07 LEFT WRIST, Dr. Alcantara - LAP CHOLECYSTECT/CHOLANGIOGRAPHY 09/05/2009 Normal IOC - LIGATE FALLOPIAN TUBE 10/1998 Tubal ligation, [facility] - PAST SURGICAL HISTORY OF Left 01/28/15 middle trigger finger release - S SLING DANIELLE HARVEY TOTScott 1065 2013 monarc - THYROIDECTOMY 01/1994 goiter no cancer ALLERGIES Benedryl [Diphenhydramine]; Doxycycline; Imitrex [Sumatriptan Succinate]; Phenergan [Promethazine Hcl]; Tramadol MEDICATIONS ascorbic acid, vitamin C, (VITAMIN C) 500 mg tablet Take 500 mg by mouth once daily. melatonin 10 mg cap Take 10 mg by mouth daily at bedtime. calcium carbonate (SUPER CALCIUM ORAL) Take by mouth. gabapentin (NEURONTIN) 100 mg capsule Take 2 capsules by mouth daily at bedtime for [address] (PROTONIX) 40 mg tablet Take 1 tablet by mouth once daily. cyclobenzaprine (FLEXERIL) 10 mg tablet Take 10 mg by mouth twice daily as needed. famotidine (PEPCID) 20 mg tablet Take 1 tablet by mouth daily at bedtime. JANUVIA 100 mg tablet TAKE 1 TABLET EVERY DAY levothyroxine (SYNTHROID) 175 mcg tablet Take 1 tablet by mouth once daily. Blood-Glucose Meter misc 1 Units once daily. Lancets lancets Use as instructed. Preferred insurance brand. blood sugar diagnostic (4C InsightsTOUCH ULTRA TEST) test strip Use as instructed. Insurance preferred brand. metFORMIN (GLUCOPHAGE) 1,000 mg tablet TAKE 1 TABLET TWICE DAILY WITH meals fluticasone (FLONASE) 50 mcg/actuation nasal spray Use 1 Harcourt in each nostril once daily. aspirin 81 mg chewable tablet Take 81 mg by mouth. carvedilol (COREG) 12.5 mg tablet Take 1 tablet by mouth twice daily. ferrous sulfate (IRON) 325 mg (65 mg iron) tablet Take 1 tablet by mouth daily with breakfast. albuterol HFA (VENTOLIN HFA) 90 mcg/actuation inhaler Inhale 2 Puffs as instructed every 4 hours as needed for Wheezing/Shortness of Breath. atorvastatin (LIPITOR) 20 mg tablet Take 1 tablet by mouth once daily. clopidogrel (PLAVIX) 75 mg tablet Take 1 tablet by mouth once daily. Cholecalciferol, Vitamin D3, 1,000 unit cap Take 1 capsule by mouth once daily. levonorgestrel (MIRENA) 20 mcg/24 hr (5 years) IUD 1 Each by INTRAUTERINE route continuous. blood sugar diagnostic (BLOOD GLUCOSE TEST) test strip Test blood sugar(s) one times daily. Dx: 250.00. Insulin: No Lancets lancets Test blood sugar(s) one times daily. Dx: 250.00. Insulin: No FAMILY HISTORY Problem Relation Age of Onset - Cancer Mother /lung cancer/nonhodgkins lymphoma/Ovarian - Asthma Mother - Hyperlipidemia Mother - other (depressive disorder) Mother - Heart Father - Hyperlipidemia Father - Hypertension Father - other (cornary artery disease) Father heart attack and stents put in - Hypertension Brother - Blood Clots Brother Lungs - No Known Problems Brother - No Known Problems Brother - Osteoporosis Maternal Grandmother - Coronary Artery Disease Paternal Grandmother - Diabetes Paternal Grandmother - Coronary Artery Disease Paternal Grandfather - Hypertension Paternal Grandfather - Hypertension Son - Breast Cancer Other maternal great grandmother Social History Substance Use Topics - Smoking status: Never Smoker - Smokeless tobacco: Never Used - Alcohol use No Review of Systems Constitutional: Positive for malaise/fatigue and weight loss. Negative for chills, diaphoresis and fever. HENT: Negative for congestion, ear discharge, ear pain, hearing loss, nosebleeds, sore throat and tinnitus. Eyes: Negative for blurred vision, double vision, photophobia, pain, discharge and redness. Respiratory: Negative for cough, shortness of breath and wheezing. Cardiovascular: Positive for chest pain. Negative for palpitations, orthopnea and leg swelling. Gastrointestinal: Negative for abdominal pain, blood in stool, constipation, diarrhea, heartburn, nausea and vomiting. Genitourinary: Negative for dysuria, frequency, hematuria and urgency. Musculoskeletal: Positive for back pain and joint pain. Negative for falls, myalgias and neck pain. Skin: Negative for itching and rash. Neurological: Negative for dizziness, tingling, tremors, sensory change, focal weakness, loss of consciousness, weakness and headaches. Endo/Heme/Allergies: Negative for environmental allergies. Does not bruise/bleed easily. Psychiatric/Behavioral: Negative for depression and memory loss. The patient is not nervous/anxious and does not have insomnia. BP 124/78 Pulse 72 Temp 36.8 ?C (98.2 ?F) Resp 16 Ht 165.1 cm (5' 5) Wt 102.8 kg (226 lb 9.6 oz) BMI 37.71 kg/m? Objective Physical Exam Constitutional: She is oriented to person, place, and time and well-developed, well-nourished, and in no distress. HENT: Head: Normocephalic. Right Ear: Hearing, external ear and ear canal normal. No drainage. Tympanic membrane is injected. Tympanic membrane is not erythematous and not bulging. Left Ear: Hearing, tympanic membrane, external ear and ear canal normal. No drainage. Nose: Nose normal. Mouth/Throat: Uvula is midline, oropharynx is clear and moist and mucous membranes are normal. Eyes: Pupils are equal, round, and reactive to light. Conjunctivae, EOM and lids are normal. Right eye exhibits no discharge. Left eye exhibits no discharge. Neck: Normal range of motion. Neck supple. Carotid bruit is not present. No tracheal deviation present. No thyromegaly present. Cardiovascular: Normal rate, regular rhythm, normal heart sounds and intact distal pulses. No murmur heard. Pulses: Radial pulses are 2+ on the right side, and 2+ on the left side. Dorsalis pedis pulses are 2+ on the right side, and 2+ on the left side. Pulmonary/Chest: Effort normal. She has no wheezes. She has no rhonchi. She has no rales. Right breast exhibits mass. Right breast exhibits no inverted nipple, no nipple discharge, no skin change and no tenderness. Left breast exhibits mass. Left breast exhibits no inverted nipple, no nipple discharge, no skin change and no tenderness. Breasts are symmetrical. Upper outer and inner quadrants of both breasts with multiple small lumps. Abdominal: Soft. Bowel sounds are normal. She exhibits no distension, no abdominal bruit and no mass. There is no hepatosplenomegaly. There is no tenderness. Genitourinary: Vagina normal, uterus normal, cervix normal, right adnexa normal, left adnexa normal and vulva normal. Cervix exhibits no motion tenderness. Vulva exhibits no lesion. Vagina exhibits no lesion. No vaginal discharge found. Genitourinary Comments: IUD strings present. Musculoskeletal: Normal range of motion. Thoracic back: She exhibits tenderness. She exhibits normal range of motion and no swelling. Left thoracic paraspinal tenderness, area of firmness palpated just under left shoulder blade. Lymphadenopathy: She has no cervical adenopathy. Right: No supraclavicular adenopathy present. Left: No supraclavicular adenopathy present. Neurological: She is alert and oriented to person, place, and time. She has normal motor skills, normal sensation, normal strength, normal reflexes and intact cranial nerves. She displays no weakness. No cranial nerve deficit. Gait normal. Reflex Scores: Patellar reflexes are 2+ on the right side and 2+ on the left side. Skin: Skin is warm and dry. No bruising and no rash noted. Psychiatric: Mood, memory, affect and judgment normal. Component Latest Ref Rng AND Units 03/10/2018 03/19/2018 WBC 4.8 - 10.8 thou/cmm 7.8 RBC 4.20 - 5.40 mil/cmm 4.97 HGB 12.0 - 16.0 g/dL 14.0 Hematocrit 37.0 - 47.0 % 42.8 MCV 81.0 - 99.0 fl 86.1 MCH 27.0 - 31.0 pg 28.2 MCHC 32.0 - 36.0 % 32.7 RDW 11.5 - 15.9 % 13.4 Platelet Count 150 - 400 thou/cmm 249 MPV 7.1 - 10.5 fl 10.6 (H) Seg Neutrophil % 72.1 Lymphocyte % 19.8 Monocyte % 4.6 Eosinophil % 2.9 Basophil % 0.6 Abs. Neut(Anc) 3.00 - 5.67 thou/cmm 5.62 Abs. Lymph 1.50 - 3.65 thou/cmm 1.54 Abs. Hitchcock 0.20 - 1.00 thou/cmm 0.36 Abs. Eosin 0.00 - 0.41 thou/cmm 0.23 Abs. Baso 0.00 - 0.08 thou/cmm 0.05 Sodium 136 - 145 mEq/L 137 Potassium 3.5 - 5.1 mEq/L 4.3 Chloride 98 - 107 mEq/L 104 CO2 21 - 32 mEq/L 26 Glucose 70 - 99 mg/dL 135 (H) BUN 7 - 25 mg/dL 8 Creatinine 0.51 - 0.95 mg/dL 0.69 Calcium 8.5 - 10.1 mg/dL 9.7 Albumin 3.4 - 5.0 g/dL 4.4 Protein, Total 6.4 - 8.2 g/dL 8.0 AST 15 - 37 U/L 56 (H) ALT 14 - 63 U/L 53 Alkaline Phosphatase 46 - 116 U/L 96 Bilirubin, Total 0.2 - 1.0 mg/dL 0.7 Anion Gap 8 - 20 12 BUN/CREATININE RATIO 10 - 20 12 Cholesterol, Total 0 - 199 mg/dL 127 Triglyceride 0 - 149 mg/dL 184 (H) HDL Cholesterol >40 mg/dL 34 LDL Cholesterol 0 - 150 mg/dL 56 CHOL/HDL 1.8 - 5.3 3.7 Risk Factor 3.7 Hep B Surface Ag Negative Negative Hepatitis C Antibody Negative Negative Hb Core Ab IgM Negative Negative HAV Ab IgM Negative Negative Iron 50 - 170 ug/dL 71 TIBC 250 - 450 ug/dL 341 Iron % Saturation 20 - 55 % 21 Hemoglobin A1C 4.5 - 6.2 % 6.4 (H) Estimated Average Glucose mg/dl 137 Ferritin 8.00 - 252.00 ng/mL 77.00 Folate 3.10 - 17.50 ng/mL 44.00 (H) Vitamin B12 193 - 986 pg/mL 512 eGFR >60mL/min/1.73m2 >60 TSH 0.34 - 4.82 uIU/mL 0.70 ASSESSMENT/PLAN: 1. Well adult exam - ICD9: V70.0, ICD10: Z00.00 (primary diagnosis) - Completed pelvic exam and breast exam - check HPV - Set up for mammogram, yearly mammogram recommended - Encouraged monthly Breast Self Exam - Recommended calcium intake with supplements or by diet (goal of 2260-8727 mg/day - Discussed need and benefit for weight loss. BMI 37.71 kg/(m2) - Follow up for annual exam in one year. 2. Encounter for gynecological examination without abnormal finding - ICD9: V72.31, ICD10: Z01.419 - Completed pap exam - check HPV - Follow up for annual exam in one year. 3. Screening for cervical cancer - ICD9: V76.2, ICD10: Z12.4 - Completed pap exam - Follow up for annual exam in one year. - PAP, CYTO FLOUR MIXER 4. Breast cancer screening by mammogram - ICD9: V76.12, ICD10: Z12.31 - Completed breast exam - Set up for mammogram, yearly mammogram recommended - Encouraged monthly BSE - Follow up for annual exam in one year. - ALEXANDRA DIAG W MYAH BILAT 5. Fibrous breast lumps - ICD9: 611.72, ICD10: N63.0 Ordered diagnostic mammogram with ultrasound to evaluate. Tomosynthesis recommended for dense breast tissue - ALEXANDRA DIAG W MYAH BILAT - US BREAST LTD LT - US BREAST LTD RT 6. Obesity, Class II, BMI 35-39.9 E66.9 - ICD9: 278.00, ICD10: E66.9 Counseled patient on nutrition and exercise. 7. Chest pain, unspecified type - ICD9: 786.50, ICD10: R07.9 Evaluated by data reduction technician, EKG was normal Evaluated by schedule announcer, follow-up is scheduled. Chest x-ray showing a linear atelectasis. May need CT chest, will away rheumatology recommendations 8. Acute midline thoracic back pain - ICD9: 724.1, ICD10: M54.6 Likely musculoskeletal strain - Ice for localized tenderness - Warm moist heat for 20 min three times a day - Patient given instructions intermittent use of heat - Follow up in 1 month or sooner if symptoms persist or worsen 9. Bipolar 2 Disorder Stable Managed by psychiatry She is scheduled for diabetes visit in 1 month Lester Lopez APRN.[employer] Referring Provider: SELF [[id number]] Allergies As of Date: 07/28/2018 Noted Allergy Reaction BENEDRYL (DIPHENHYDRAMINE) 07/01/2009 14 - Other: See Comments Comments: Makes her feel jittery IV- DOXYCYCLINE 08/13/2006 11 - Vomiting IMITREX (SUMATRIPTAN SUCCINATE) 12/06/2009 Comments: chest pain PHENERGAN (PROMETHAZINE HCL) 06/14/2010 5 - Intolerance Comments: restless legs IV- TRAMADOL 07/05/2017 5 - Intolerance Date Reviewed: 07/28/2018 [facility]: [facility] [place] - Fully Assessed Reason for Visit: Physical [83] Primary Visit Diagnosis:Well adult exam [Z00.00] Other Visit Diagnoses:Encounter for gynecological examination without abnormal finding [Z01.419] Screening for cervical cancer [Z12.4] Breast cancer screening by mammogram [Z12.31] Fibrous breast lumps [N63.0] Obesity, Class II, BMI 35-39.9 E66.9 [E66.9] Chest pain, unspecified type [R07.9] Acute midline thoracic back pain [M54.6] Bipolar 2 disorder (HCC) [F31.81] Order(s):ALEXANDRA RUIZ W MYAH BILAT [[id number]] Order #: [id number] FUTURE US BREAST LTD LT [[id number]] Order #: [id number] FUTURE US BREAST LTD RT [[id number]] Order #: [id number] FUTURE PAP, CYTO FLOUR MIXER [[id number]] Order #: [id number] Prescriptions as of 07/28/2018 Sig: ASCORBIC ACID (VITAMIN C) 500* Take 500 mg by mouth once babar* MELATONIN 10 MG CAPSULE Take 10 mg by mouth daily at * SUPER CALCIUM ORAL Take by mouth. GABAPENTIN 100 MG CAPSULE Take 2 capsules by mouth janay* PANTOPRAZOLE 40 MG TABLET,DEL* Take 1 tablet by mouth once d* CYCLOBENZAPRINE 10 MG TABLET Take 10 mg by mouth twice babar* FAMOTIDINE 20 MG TABLET Take 1 tablet by mouth daily * JANUVIA 100 MG TABLET TAKE 1 TABLET EVERY DAY LEVOTHYROXINE 175 MCG TABLET Take 1 tablet by mouth once d* BLOOD-GLUCOSE METER 1 Units once daily. LANCETS Use as instructed. Preferred * BLOOD SUGAR DIAGNOSTIC STRIPS Use as instructed. Insurance * METFORMIN 1,000 MG TABLET TAKE 1 TABLET TWICE DAILY WIT* FLUTICASONE 50 MCG/ACTUATION * Use 1 Harcourt in each nostril o* ASPIRIN 81 MG CHEWABLE TABLET Take 81 mg by mouth. CARVEDILOL 12.5 MG TABLET Take 1 tablet by mouth twice * FERROUS SULFATE 325 MG (65 MG* Take 1 tablet by mouth daily * ALBUTEROL SULFATE HFA 90 MCG/* Inhale 2 Puffs as instructed * ATORVASTATIN 20 MG TABLET Take 1 tablet by mouth once d* CLOPIDOGREL 75 MG TABLET Take 1 tablet by mouth once d* CHOLECALCIFEROL (VITAMIN D3) * Take 1 capsule by mouth once * LEVONORGESTREL 20 MCG/24 HR (* 1 Each by INTRAUTERINE route * BLOOD SUGAR DIAGNOSTIC STRIPS Test blood sugar(s) one times* LANCETS Test blood sugar(s) one times* Problem List As Of Date 07/28/2018 Noted Resolved Chest pain, unspecified [R07.9] INVALID FOR*11/21/2011 Essential hypertension, benign [I10] INVALID FOR*11/21/2011 Shortness of breath [R06.02] INVALID FOR*11/21/2011 Restless legs syndrome (RLS) [G25.81] INVALID FOR* Insomnia [G47.00] INVALID FOR* PLANTAR Fasciitis [M72.2] INVALID FOR*11/21/2011 Diarrhea [R19.7] INVALID FOR*09/29/2014 Hemorrhage of gastrointestinal tract [K92.2] INVALID FOR* Internal hemorrhoids without mention of complic*INVALID FOR*11/21/2011 Ganglion of joint [M67.40] INVALID FOR*11/21/2011 Irritable bowel syndrome [K58.9] INVALID FOR* PAP SMEAR OF CERVIX W ASCUS [R87.610] INVALID FOR* Cervical high risk human papillomavirus (HPV) D*INVALID FOR* Female stress incontinence [N39.3] INVALID FOR* Pain in limb [M79.609] INVALID FOR*11/21/2011 Calcaneal spur [M77.30] INVALID FOR*11/21/2011 Depressive disorder, not elsewhere classified [*INVALID FOR*11/21/2011 Microscopic hematuria [R31.29] INVALID FOR*11/21/2011 Pain in joint, pelvic region and thigh [M25.559]INVALID FOR*11/21/2011 Cholelithiasis NOS [K80.20] INVALID FOR*11/21/2011 Hypothyroid [E03.9] INVALID FOR* Ovarian cystic mass [N83.209] INVALID FOR*11/21/2011 Depression, major [F32.9] 11/21/2011 Panic attack [F41.0] INVALID FOR*11/21/2011 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] INVALID FOR* Backache, unspecified [M54.9] INVALID FOR*09/29/2014 Cervicalgia [M54.2] INVALID FOR*09/29/2014 Bipolar 2 disorder (HCC) [F31.81] INVALID FOR* Dysuria [R30.0] INVALID FOR*09/29/2014 Hematuria [R31.9] INVALID FOR* Urinary tract infection [N39.0] INVALID FOR*09/29/2014 Urgency of urination [R39.15] INVALID FOR*09/29/2014 Frequency of urination [R35.0] INVALID FOR*09/29/2014 Low back pain [M54.5] INVALID FOR* Family history of ovarian cancer [Z80.41] INVALID FOR* LADONNA (stress urinary incontinence, female) [N39.*INVALID FOR* Cystocele [HAI1354] INVALID FOR* Type 2 diabetes mellitus without complication (*INVALID FOR* Trigger middle finger of left hand [M65.332] INVALID FOR* Coronary atherosclerosis [I25.10] INVALID FOR* More... Essential hypertension [I10] INVALID FOR* Morbid obesity with BMI of 40.0-44.9, adult (HC*INVALID FOR* GERD (gastroesophageal reflux disease) [K21.9] INVALID FOR* TONIO (obstructive sleep apnea) [G47.33] INVALID FOR* More... Iron deficiency concern [E61.1] INVALID FOR* Presence of drug coated stent in LAD coronary a*INVALID FOR* Family history of ischemic heart disease [Z82.4*INVALID FOR* Presence of drug coated stent in right coronary*INVALID FOR* Vitamin D insufficiency [E55.9] INVALID FOR* Sprain of lumbar region-BWC [S33.5XXA] INVALID FOR* Anterior cervical lymphadenopathy [R59.0] INVALID FOR* More... Axillary lymphadenopathy [R59.0] INVALID FOR*08/14/2016 More... Onychomycosis [B35.1] INVALID FOR* Mild intermittent asthma without complication [*INVALID FOR* Prolonged QT interval [R94.31] INVALID FOR* Chronic pain of left knee [M25.562, G89.29] INVALID FOR* Iron deficiency anemia [D50.9] INVALID FOR* Gastroesophageal reflux disease [K21.9] INVALID FOR* Family history of coronary artery disease [Z82.*INVALID FOR* Hyperlipidemia [E78.5] INVALID FOR* Obesity, Class II, BMI 35-39.9 E66.9 [E66.9] INVALID FOR* Asthma [J45.909] INVALID FOR* History of cholecystectomy [Z90.49] INVALID FOR* History of thyroidectomy [Z98.890] INVALID FOR* sign painter (current) use of antithrombotics/anti*INVALID FOR* sign painter (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 [Z79.82] INVALID FOR* alf (current) use of oral hypoglycemic dr*INVALID FOR* Sprain of ankle [S93.409A] INVALID FOR* Lymphadenopathy, generalized [R59.1] INVALID FOR* Pain in joint, multiple sites [M25.50] INVALID FOR* Positive ALRISSA (antinuclear antibody) [R76.8] INVALID FOR* Disposition: Return in about 4 weeks (around 08/27/2018), or if symptoms worsen or fail to improve, for Diabetes. Follow-up and Disposition History Recorded Encounter Status:Closed by LESTER LOPEZ CNP on 07/28/18 PROGRESS Observed: 07/28/2018 Status: COMPLETED Source: [place] 7:52 AM [facility] REPOSITORY HNO ID: [id number] Author: Lester Rivers (Hector) Jessica Service: (none) Author Type: Nurse Practitioner Type: Progress Notes Filed: 07/28/2018 10:43 AM Note Text: Subjective HPI Mahi Tan is a 42 year old female here today for an annual physical. I reviewed her past medical, surgical, social, and family histories today and updated chart. Allergies, chronic medications, and supplements were also reviewed and her list is now up to date. Concern(s) today include: Chest and back discomfort. Continued fatigue, generalized joint pain, swollen lymph nodes. Saw a schedule announcer, lots of labs done Chest discomfort started a few weeks ago, mid sternal, well localized. Occurs daily, not constant. Will last for a few hours. Denies cough, SOB, sweats, nausea. Discomfort coincides with sensation of lump in anterior chest wall or a pinching sensation to thoracic spine. Not sure if back pain is related to chest pain or not. Saw data reduction technician and EKG normal, possible pericarditis. Chest x-ray done per schedule announcer showing atelectasis. Sloughing of inner cheeks - schedule announcer suggested culture. May need hematology or infectious disease consult. Gets overheated at night but not too sweaty. Sees GI end of the month for GERD. Fasting blood sugars have been elevated 130s-150s. Eating habits have been consistent, maybe a little less since she's been tired. T4 L4 MENSTRUAL HISTORY LMP: Sporadic, spotting a day or two, 2 weeks ago Patient on HRT: No Ever used HRT: No Has been on control pills in the past SEXUAL HISTORY: Sexually active with CONTRACEPTION: IUD inserted 07/19/2015 for heavy bleeding, per Dr. Gambino Tubal ligation Hx of abnormal pap: Yes 05/2016 HPV positive, Pap normal 07/23/18 HIV negative VAGINAL SYMPTOMS: Denies abnormal discharge, itching, pain. Denies pain with sex. BREAST: Denies lumps, nipple discharge, and pain. Last Mammogram 06/2016 abnormal, then ultrasound was normal. URINARY SYMPTOMS: Denies dysuria, urgency, frequency, hematuria. Do you experience urinary incontinence? No Had bladder sling and this helped a lot FAMILY HISTORY: Breast Cancer: Yes Uterine Cancer: No Cervical Cancer: Yes - mother Ovarian Cancer: No Osteoporosis: Maternal grandmother maybe. PAST MEDICAL HISTORY Diagnosis Date - Allergic rhinitis - Anxiety - Asthma no issues for several years - Bipolar 2 disorder (HCC) 11/21/2011 - CAD (coronary artery disease) - Calculus of gallbladder without mention of cholecystitis or obstruction 08/24/2009 - Cervical high risk human papillomavirus (HPV) DNA test positive - Common cold - Depressive disorder Dr. Cornell- [facility] - Diabetes ([facility]) - Diarrhea - Double vessel coronary artery disease 2 stents - Excessive or frequent menstruation Heavy periods Resolved - Female stress incontinence 01/13/2008 - Ganglion of joint 10/14/2007 - GERD (gastroesophageal reflux disease) - Hand pain - Hemorrhage of gastrointestinal tract, unspecified - History of intrauterine contraceptive device Mirena placed May 2015 Dr. Willy Schmid - Hyperlipidemia - Hypertension - Internal hemorrhoids without mention of complication - Irregular menstrual cycle Irregular periods Resolved - Irritable bowel syndrome Irritable bowel - Obesity - Obstructive sleep apnea - Onychomycosis - Other specified acquired hypothyroidism - Ovarian cystic mass 06/07/2010 - Panic attack 07/18/2010 - Papanicolaou smear of cervix with atypical squamous cells of undetermined significance (ASC-US) - Paresthesia of hand - PLANTAR Fasciitis 07/15/2007 - PTSD (post-traumatic stress disorder) - Status post left heart catheterization 10/2014 PAST SURGICAL HISTORY Procedure Laterality Date - ANGIOPLASTY 11/23/14 [facility]-proximal LAD and proximal RCA 2 stents - CARDIAC CATHETERIZATION HX 11/20/14 [facility]-proximal RCA lesion - COLONOSCOP W/ OR W/O [facility] SPEC 06/09/14 Colonoscopy - COLONOSCOPY W/BX 08/13/07 - COLPOSCOPY (VAGINOSCOPY) 2006 Colposcopy - EXCIS PRIMARY GANGLION WRIST 11/04/07 LEFT WRIST, Dr. Alcantara - LAP CHOLECYSTECT/CHOLANGIOGRAPHY 09/05/2009 Normal IOC - LIGATE FALLOPIAN TUBE 10/1998 Tubal ligation, [facility] - PAST SURGICAL HISTORY OF Left 01/28/15 middle trigger finger release - S SLING DANIELLE HARVEY TOTL [id number] 2013 monarc - THYROIDECTOMY 01/1994 goiter no cancer ALLERGIES Benedryl [Diphenhydramine]; Doxycycline; Imitrex [Sumatriptan Succinate]; Phenergan [Promethazine Hcl]; Tramadol MEDICATIONS ascorbic acid, vitamin C, (VITAMIN C) 500 mg tablet Take 500 mg by mouth once daily. melatonin 10 mg cap Take 10 mg by mouth daily at bedtime. calcium carbonate (SUPER CALCIUM ORAL) Take by mouth. gabapentin (NEURONTIN) 100 mg capsule Take 2 capsules by mouth daily at bedtime for [address] (PROTONIX) 40 mg tablet Take 1 tablet by mouth once daily. cyclobenzaprine (FLEXERIL) 10 mg tablet Take 10 mg by mouth twice daily as needed. famotidine (PEPCID) 20 mg tablet Take 1 tablet by mouth daily at bedtime. JANUVIA 100 mg tablet TAKE 1 TABLET EVERY DAY levothyroxine (SYNTHROID) 175 mcg tablet Take 1 tablet by mouth once daily. Blood-Glucose Meter misc 1 Units once daily. Lancets lancets Use as instructed. Preferred insurance brand. blood sugar diagnostic (4C InsightsTOUCH ULTRA TEST) test strip Use as instructed. Insurance preferred brand. metFORMIN (GLUCOPHAGE) 1,000 mg tablet TAKE 1 TABLET TWICE DAILY WITH meals fluticasone (FLONASE) 50 mcg/actuation nasal spray Use 1 Harcourt in each nostril once daily. aspirin 81 mg chewable tablet Take 81 mg by mouth. carvedilol (COREG) 12.5 mg tablet Take 1 tablet by mouth twice daily. ferrous sulfate (IRON) 325 mg (65 mg iron) tablet Take 1 tablet by mouth daily with breakfast. albuterol HFA (VENTOLIN HFA) 90 mcg/actuation inhaler Inhale 2 Puffs as instructed every 4 hours as needed for Wheezing/Shortness of Breath. atorvastatin (LIPITOR) 20 mg tablet Take 1 tablet by mouth once daily. clopidogrel (PLAVIX) 75 mg tablet Take 1 tablet by mouth once daily. Cholecalciferol, Vitamin D3, 1,000 unit cap Take 1 capsule by mouth once daily. levonorgestrel (MIRENA) 20 mcg/24 hr (5 years) IUD 1 Each by INTRAUTERINE route continuous. blood sugar diagnostic (BLOOD GLUCOSE TEST) test strip Test blood sugar(s) one times daily. Dx: 250.00. Insulin: No Lancets lancets Test blood sugar(s) one times daily. Dx: 250.00. Insulin: No FAMILY HISTORY Problem Relation Age of Onset - Cancer Mother /lung cancer/nonhodgkins lymphoma/Ovarian - Asthma Mother - Hyperlipidemia Mother - other (depressive disorder) Mother - Heart Father - Hyperlipidemia Father - Hypertension Father - other (cornary artery disease) Father heart attack and stents put in - Hypertension Brother - Blood Clots Brother Lungs - No Known Problems Brother - No Known Problems Brother - Osteoporosis Maternal Grandmother - Coronary Artery Disease Paternal Grandmother - Diabetes Paternal Grandmother - Coronary Artery Disease Paternal Grandfather - Hypertension Paternal Grandfather - Hypertension Son - Breast Cancer Other maternal great grandmother Social History Substance Use Topics - Smoking status: Never Smoker - Smokeless tobacco: Never Used - Alcohol use No Review of Systems Constitutional: Positive for malaise/fatigue and weight loss. Negative for chills, diaphoresis and fever. HENT: Negative for congestion, ear discharge, ear pain, hearing loss, nosebleeds, sore throat and tinnitus. Eyes: Negative for blurred vision, double vision, photophobia, pain, discharge and redness. Respiratory: Negative for cough, shortness of breath and wheezing. Cardiovascular: Positive for chest pain. Negative for palpitations, orthopnea and leg swelling. Gastrointestinal: Negative for abdominal pain, blood in stool, constipation, diarrhea, heartburn, nausea and vomiting. Genitourinary: Negative for dysuria, frequency, hematuria and urgency. Musculoskeletal: Positive for back pain and joint pain. Negative for falls, myalgias and neck pain. Skin: Negative for itching and rash. Neurological: Negative for dizziness, tingling, tremors, sensory change, focal weakness, loss of consciousness, weakness and headaches. Endo/Heme/Allergies: Negative for environmental allergies. Does not bruise/bleed easily. Psychiatric/Behavioral: Negative for depression and memory loss. The patient is not nervous/anxious and does not have insomnia. BP 124/78 Pulse 72 Temp 36.8 ?C (98.2 ?F) Resp 16 Ht 165.1 cm (5' 5) Wt 102.8 kg (226 lb 9.6 oz) BMI 37.71 kg/m? Objective Physical Exam Constitutional: She is oriented to person, place, and time and well-developed, well-nourished, and in no distress. HENT: Head: Normocephalic. Right Ear: Hearing, external ear and ear canal normal. No drainage. Tympanic membrane is injected. Tympanic membrane is not erythematous and not bulging. Left Ear: Hearing, tympanic membrane, external ear and ear canal normal. No drainage. Nose: Nose normal. Mouth/Throat: Uvula is midline, oropharynx is clear and moist and mucous membranes are normal. Eyes: Pupils are equal, round, and reactive to light. Conjunctivae, EOM and lids are normal. Right eye exhibits no discharge. Left eye exhibits no discharge. Neck: Normal range of motion. Neck supple. Carotid bruit is not present. No tracheal deviation present. No thyromegaly present. Cardiovascular: Normal rate, regular rhythm, normal heart sounds and intact distal pulses. No murmur heard. Pulses: Radial pulses are 2+ on the right side, and 2+ on the left side. Dorsalis pedis pulses are 2+ on the right side, and 2+ on the left side. Pulmonary/Chest: Effort normal. She has no wheezes. She has no rhonchi. She has no rales. Right breast exhibits mass. Right breast exhibits no inverted nipple, no nipple discharge, no skin change and no tenderness. Left breast exhibits mass. Left breast exhibits no inverted nipple, no nipple discharge, no skin change and no tenderness. Breasts are symmetrical. Upper outer and inner quadrants of both breasts with multiple small lumps. Abdominal: Soft. Bowel sounds are normal. She exhibits no distension, no abdominal bruit and no mass. There is no hepatosplenomegaly. There is no tenderness. Genitourinary: Vagina normal, uterus normal, cervix normal, right adnexa normal, left adnexa normal and vulva normal. Cervix exhibits no motion tenderness. Vulva exhibits no lesion. Vagina exhibits no lesion. No vaginal discharge found. Genitourinary Comments: IUD strings present. Musculoskeletal: Normal range of motion. Thoracic back: She exhibits tenderness. She exhibits normal range of motion and no swelling. Left thoracic paraspinal tenderness, area of firmness palpated just under left shoulder blade. Lymphadenopathy: She has no cervical adenopathy. Right: No supraclavicular adenopathy present. Left: No supraclavicular adenopathy present. Neurological: She is alert and oriented to person, place, and time. She has normal motor skills, normal sensation, normal strength, normal reflexes and intact cranial nerves. She displays no weakness. No cranial nerve deficit. Gait normal. Reflex Scores: Patellar reflexes are 2+ on the right side and 2+ on the left side. Skin: Skin is warm and dry. No bruising and no rash noted. Psychiatric: Mood, memory, affect and judgment normal. Component Latest Ref Rng AND Units 03/10/2018 03/19/2018 WBC 4.8 - 10.8 thou/cmm 7.8 RBC 4.20 - 5.40 mil/cmm 4.97 HGB 12.0 - 16.0 g/dL 14.0 Hematocrit 37.0 - 47.0 % 42.8 MCV 81.0 - 99.0 fl 86.1 MCH 27.0 - 31.0 pg 28.2 MCHC 32.0 - 36.0 % 32.7 RDW 11.5 - 15.9 % 13.4 Platelet Count 150 - 400 thou/cmm 249 MPV 7.1 - 10.5 fl 10.6 (H) Seg Neutrophil % 72.1 Lymphocyte % 19.8 Monocyte % 4.6 Eosinophil % 2.9 Basophil % 0.6 Abs. Neut(Anc) 3.00 - 5.67 thou/cmm 5.62 Abs. Lymph 1.50 - 3.65 thou/cmm 1.54 Abs. Hitchcock 0.20 - 1.00 thou/cmm 0.36 Abs. Eosin 0.00 - 0.41 thou/cmm 0.23 Abs. Baso 0.00 - 0.08 thou/cmm 0.05 Sodium 136 - 145 mEq/L 137 Potassium 3.5 - 5.1 mEq/L 4.3 Chloride 98 - 107 mEq/L 104 CO2 21 - 32 mEq/L 26 Glucose 70 - 99 mg/dL 135 (H) BUN 7 - 25 mg/dL 8 Creatinine 0.51 - 0.95 mg/dL 0.69 Calcium 8.5 - 10.1 mg/dL 9.7 Albumin 3.4 - 5.0 g/dL 4.4 Protein, Total 6.4 - 8.2 g/dL 8.0 AST 15 - 37 U/L 56 (H) ALT 14 - 63 U/L 53 Alkaline Phosphatase 46 - 116 U/L 96 Bilirubin, Total 0.2 - 1.0 mg/dL 0.7 Anion Gap 8 - 20 12 BUN/CREATININE RATIO 10 - 20 12 Cholesterol, Total 0 - 199 mg/dL 127 Triglyceride 0 - 149 mg/dL 184 (H) HDL Cholesterol >40 mg/dL 34 LDL Cholesterol 0 - 150 mg/dL 56 CHOL/HDL 1.8 - 5.3 3.7 Risk Factor 3.7 Hep B Surface Ag Negative Negative Hepatitis C Antibody Negative Negative Hb Core Ab IgM Negative Negative HAV Ab IgM Negative Negative Iron 50 - 170 ug/dL 71 TIBC 250 - 450 ug/dL 341 Iron % Saturation 20 - 55 % 21 Hemoglobin A1C 4.5 - 6.2 % 6.4 (H) Estimated Average Glucose mg/dl 137 Ferritin 8.00 - 252.00 ng/mL 77.00 Folate 3.10 - 17.50 ng/mL 44.00 (H) Vitamin B12 193 - 986 pg/mL 512 eGFR >60mL/min/1.73m2 >60 TSH 0.34 - 4.82 uIU/mL 0.70 ASSESSMENT/PLAN: 1. Well adult exam - ICD9: V70.0, ICD10: Z00.00 (primary diagnosis) - Completed pelvic exam and breast exam - check HPV - Set up for mammogram, yearly mammogram recommended - Encouraged monthly Breast Self Exam - Recommended calcium intake with supplements or by diet (goal of 7720-7886 mg/day - Discussed need and benefit for weight loss. BMI 37.71 kg/(m2) - Follow up for annual exam in one year. 2. Encounter for gynecological examination without abnormal finding - ICD9: V72.31, ICD10: Z01.419 - Completed pap exam - check HPV - Follow up for annual exam in one year. 3. Screening for cervical cancer - ICD9: V76.2, ICD10: Z12.4 - Completed pap exam - Follow up for annual exam in one year. - PAP, CYTO FLOUR MIXER 4. Breast cancer screening by mammogram - ICD9: V76.12, ICD10: Z12.31 - Completed breast exam - Set up for mammogram, yearly mammogram recommended - Encouraged monthly BSE - Follow up for annual exam in one year. - ALEXANDRA DIAG W MYAH BILAT 5. Fibrous breast lumps - ICD9: 611.72, ICD10: N63.0 Ordered diagnostic mammogram with ultrasound to evaluate. Tomosynthesis recommended for dense breast tissue - ALEXANDRA DIAG W MYAH BILAT - US BREAST LTD LT - US BREAST LTD RT 6. Obesity, Class II, BMI 35-39.9 E66.9 - ICD9: 278.00, ICD10: E66.9 Counseled patient on nutrition and exercise. 7. Chest pain, unspecified type - ICD9: 786.50, ICD10: R07.9 Evaluated by data reduction technician, EKG was normal Evaluated by schedule announcer, follow-up is scheduled. Chest x-ray showing a linear atelectasis. May need CT chest, will away rheumatology recommendations 8. Acute midline thoracic back pain - ICD9: 724.1, ICD10: M54.6 Likely musculoskeletal strain - Ice for localized tenderness - Warm moist heat for 20 min three times a day - Patient given instructions intermittent use of heat - Follow up in 1 month or sooner if symptoms persist or worsen 9. Bipolar 2 Disorder Stable Managed by psychiatry She is scheduled for diabetes visit in 1 month Lester Lopez APRN.HECTOR PAP,CYTO FLOUR MIXER Observed: 07/28/2018 Status: F Source: [facility] 12:00 AM HEALTH SYSTEM REPOSITORY Test performed at [place] [address] NAME: MAHI TAN REQUESTING: LESTER LOPEZ CNP SPECIMEN: TP CERVICAL/ENDOCERVICAL HPV REGARDLESS Relevant History: LMP: 07/14/2018 Prev. abnormal: HPV+, SPECIMEN ADEQUACY SATISFACTORY FOR EVALUATION. ENDOCERVICAL/TRANSFORMATION ZONE COMPONENTS PRESENT. GENERAL CATEGORIZATION EPITHELIAL CELL ABNORMALITY. INTERPRETATION/RESULT ATYPICAL SQUAMOUS CELLS OF UNDETERMINED SIGNIFICANCE. ATYPICAL GLANDULAR CELLS, ENDOCERVICAL TYPE. FUNGAL ORGANISMS MORPHOLOGICALLY CONSISTENT WITH HANNAH SPECIES. NOTE: CASE ALSO REVIEWED BY DR. BARRIGA. ANCILLARY TESTING Negative for HPV DNA high risk type 16 by PCR. Please see additional report from [facility]. Negative for HPV DNA high risk type 18 by PCR. Please see additional report from [facility]. POSITIVE for HPV DNA high risk types: 31, 33, 35, 39, 45, 51, 52, 56, 58, 59, 66, 68 by PCR. Please see additional report from [facility]. Electronically signed: 08/01/2018 Screened by: MARY AL(ASCP) Signed Out by: MATT DAVIS M.D.,PATHOLOGIST The Pap test serves as a screening tool for early detection of cervical cancer. The Pap test does not represent a final diagnostic test for cervical cancer. Furthermore, the Pap test was not designed to screen for other malignancies (endometrial, ovarian cancer, etc....). False negatives and false positives have occurred. If clinically indicated, further patient evaluation is recommended. Printed on: August 01, 2018 Page 1 of 1 Performed By: #### CYTOP #### [facility] [address] [place] [address] CHEST 2 VIEWS Observed: 07/23/2018 Status: F Source: [facility] [id number] 2:30 PM HEALTH SYSTEM REPOSITORY Performed at [facility] APPROVED BY: Denver Barrera MD EXAMINATION: CHEST RADIOGRAPH (2 VIEW FRONTAL & LATERAL) CLINICAL HISTORY: Chest pain MQ: [id number] Comparison: None RESULT: Lines, tubes, and devices: None. Lungs and pleura: No pneumonia, mass or congestion. Linear atelectasis noted within the retrosternal space on the lateral view. No pleural effusion. Cardiomediastinal silhouette: Normal cardiomediastinal silhouette. Other: None IMPRESSION: No acute radiographic abnormality. HEMOGRAM/DIFF Collected: 07/23/2018 Status: F Source: [facility] 2:30 PM HEALTH SYSTEM REPOSITORY TYPE CODE TESTS RESULT OUT OF REFERENCE UNITS RANGE LAB WBC(LOINC) 3.98-10.04 thou/cmm WBC 7.09 LAB RBC(LOINC) 3.93-5.22 mil/cmm RBC 4.70 LAB HGB(LOINC) 11.2-15.7 g/dL Hgb 13.6 LAB HCT(LOINC) 34.1-44.9 % Hct 40.0 LAB MCV(LOINC) 79.4-94.8 fl MCV 85.1 LAB MCH(LOINC) 25.6-32.2 pg MCH 28.9 LAB MCHC(LOINC 31.6-34.8 % ) MCHC 34.0 LAB RDW(LOINC) 11.7-14.4 % RDW 12.8 LAB RDWSD(LOIN 36.4-46.3 fl C) RDW SD 39.5 LAB PLT(LOINC) 182-369 thou/cmm Platelet 245 LAB MPV(LOINC) 9.4-12.3 fl MPV 10.7 LAB SEG(LOINC) % Seg Neutrophil 65.7 LAB IGRE(LOINC % ) Immature Grans 0.10 LAB LYMPH(LOIN % C) Lymphocyte 25.2 LAB MNO(LOINC) % Monocyte 5.4 LAB EOSIN(LOIN % C) Eosinophil 2.8 LAB BASO(LOINC % ) Basophil 0.8 LAB SEGN(LOINC 1.56-6.13 thou/cmm ) Abs. Neut (ANC) 4.66 LAB IGAB(LOINC 0.00-0.05 thou/cmm ) Abs Immature Grans 0.01 LAB LYMN(LOINC 1.18-3.74 thou/cmm ) Abs. Lymph 1.79 LAB MONON(LOIN 0.27-0.70 thou/cmm C) Abs. Hitchcock 0.38 LAB EOSN(LOINC 0.00-0.31 thou/cmm ) Abs. Eosin 0.20 LAB BASON(LOIN 0.01-0.08 thou/cmm C) Abs. Baso 0.06 Performed By: #### CBCD1 #### [place] [address] URINALYSIS, REFLEX Collected: 07/23/2018 Status: F Source: [facility] 2:30 PM HEALTH SYSTEM REPOSITORY TYPE CODE TESTS RESULT OUT OF REFERENCE UNITS RANGE LAB COLOR(LOIN C) Urine Color YELLOW LAB APPUR(LOIN C) Urine Appearance CLOUDY LAB GLUUR(LOIN Negative mg/dL C) Glucose Urine NEGATIVE LAB KETON(LOIN Negative mg/dL C) Ketone Urine NEGATIVE LAB HGBUR(LOIN Negative C) Hemoglobin,Urine NEGATIVE LAB PROTU(LOIN Negative mg/dL C) Protein Urine NEGATIVE LAB NITR(LOINC Negative ) Nitrite reflex NEGATIVE LAB BILIU(LOIN Negative C) Bilirubin Urine NEGATIVE LAB SPG(LOINC) 1.005-1.030 Specific [place], Ur 1.014 LAB PHUR(LOINC 5.0-8.0 ) pH,Urine 5.5 LAB UROBI(LOIN 0.0-1.0 EU/dL C) Urobilinogen,Ur 0.2 LAB LEUKR(LOIN Negative C) Leukocyte NEGATIVE esterase LAB RBCU1(LOIN 0.0-5.0 /hpf C) RBC,Urine 0.9 LAB WBCR(LOINC 0.00-5.00 /hpf ) WBC, reflex 0.40 LAB EPIT1(LOIN 0.0-5.0 /hpf C) Ep Cells Urine 0.8 LAB BACT1(LOIN None C) Bacteria Urine NONE LAB HYCA1(LOIN 0.0-1.0 /lpf C) Hyaline Cast 0.8 LAB REFLX(LOIN C) Reflex Comment see below Result Comment: Reflex to culture is not indicated based on established laboratory criteria. Performed By: #### URIN #### [place] [address] CREATININE,URINE Collected: 07/23/2018 Status: F Source: [address] REPOSITORY TYPE CODE TESTS RESULT OUT OF RANGE REFERENCE UNITS LAB CREAU(LOINC mg/dL ) 81.0 Creatinine,U rine Performed By: #### CREAU #### [place] [address] URINE PROTEIN Collected: 07/23/2018 Status: F Source: [facility] [address] SYSTEM REPOSITORY TYPE CODE TESTS RESULT OUT OF REFERENCE UNITS RANGE LAB UP(LOINC) 0.0-11.9 mg/dL Urine Protein < 5.0 Performed By: #### UP #### [place] [address] C3 Collected: 07/23/2018 Status: F Source: [facility] [address] SYSTEM REPOSITORY TYPE CODE TESTS RESULT OUT OF RANGE REFERENCE UNITS LAB C3(LOINC) 90.0-180.0 mg/dL High C3 184.0 Performed By: #### C3 #### [place] [address] C4 Collected: 07/23/2018 Status: F Source: [facility] [address] SYSTEM REPOSITORY TYPE CODE TESTS RESULT OUT OF RANGE REFERENCE UNITS LAB C4(LOINC) 10.0-40.0 mg/dL High C4 40.6 Performed By: #### C4 #### [place] [address] IGG Collected: 07/23/2018 Status: F Source: [address] SYSTEM REPOSITORY TYPE CODE TESTS RESULT OUT OF RANGE REFERENCE UNITS LAB IGG(LOINC) 700-1600 mg/dL IgG 769 Performed By: #### IGG #### [facility] [address] [place] [address] IGA Collected: 07/23/2018 Status: F Source: [facility] 2:30 PM HEALTH SYSTEM REPOSITORY TYPE CODE TESTS RESULT OUT OF RANGE REFERENCE UNITS LAB IGA(LOINC) 70-400 mg/dL IgA 82 Performed By: #### IGA #### [facility] [address] [place] [address] RHEUMATOID FACTOR Collected: 07/23/2018 Status: F Source: [facility] 2:30 PM HEALTH SYSTEM REPOSITORY TYPE CODE TESTS RESULT OUT OF REFERENCE UNITS RANGE LAB RF1(LOINC) 0.0-15.0 IU/mL Rheumatoid < 10.0 Factor Performed By: #### RF1 #### [facility] [address] [place] [address] CPK Collected: 07/23/2018 Status: F Source: [facility] 2:30 PM HEALTH SYSTEM REPOSITORY TYPE CODE TESTS RESULT OUT OF RANGE REFERENCE UNITS LAB CK(LOINC) 26-192 U/L CPK 47 Performed By: #### CK #### [place] [address] COMPREHENSIVE PANEL Collected: 07/23/2018 Status: F Source: [facility] 2:30 PM HEALTH SYSTEM REPOSITORY TYPE CODE TESTS RESULT OUT OF REFERENCE UNITS RANGE LAB NA(LOINC) 136-145 mEq/L Sodium Blood 138 LAB K(LOINC) 3.5-5.1 mEq/L Potassium Blood 4.2 LAB CL(LOINC) 98-107 mEq/L Chloride Blood 103 LAB CO2(LOINC) 21-32 mEq/L CO2 Blood 25 LAB GLU(LOINC) 70-99 mg/dL Glucose High Blood 122 LAB BUN(LOINC) 7-18 mg/dL BUN Blood 9 LAB CREA(LOINC 0.51-0.95 mg/dL ) Creatinine Blood 0.70 LAB CA(LOINC) 8.5-10.1 mg/dL Calcium Blood 8.8 LAB ALB(LOINC) 3.4-5.0 g/dL Albumin Blood 4.1 LAB TP(LOINC) 6.4-8.2 g/dL Total Protein 7.2 LAB AST(LOINC) 9-37 U/L AST-SGOT High Blood 44 LAB ALT(LOINC) 12-78 U/L ALT-SGPT Blood 44 LAB ALKP(LOINC 46-116 U/L ) Alk Phosphatase 104 LAB BILIT(LOIN 0.2-1.0 mg/dL C) Total Bilirubin 0.7 LAB ANGAP(LOIN 8-16 C) Anion Gap 14 Performed By: #### P14 #### [place] [address] CRP Collected: 07/23/2018 Status: F Source: [facility] 2:30 PM HEALTH SYSTEM REPOSITORY TYPE CODE TESTS RESULT OUT OF RANGE REFERENCE UNITS LAB CRP3(LOINC) 0.00-0.30 mg/dL High CRP 0.37 Performed By: #### CRP3 #### [place] [address] FERRITIN Collected: 07/23/2018 Status: F Source: [facility] 2:30 PM HEALTH SYSTEM REPOSITORY TYPE CODE TESTS RESULT OUT OF REFERENCE UNITS RANGE LAB FERR(LOINC) 8.00-252.00 ng/mL Ferritin 58.80 Performed By: #### FERR #### [place] [address] MDRD GFR Collected: 07/23/2018 Status: F Source: [facility] 2:30 PM HEALTH SYSTEM REPOSITORY TYPE CODE TESTS RESULT OUT OF RANGE REFERENCE UNITS LAB GFRFN(LOINC >60mL/min/1.73m ) 2 eGFR >60 Result Comment: If the patient is , multiply the result by 1.210. Performed By: #### GFR #### [place] [address] IGM Collected: 07/23/2018 Status: F Source: [facility] 2:30 PM HEALTH SYSTEM REPOSITORY TYPE CODE TESTS RESULT OUT OF RANGE REFERENCE UNITS LAB IGM(LOINC) 40-230 mg/dL Low IgM 26 Performed By: #### IGM #### [place] [address] SED RATE Collected: 07/23/2018 Status: F Source: [facility] 2:30 PM HEALTH SYSTEM REPOSITORY TYPE CODE TESTS RESULT OUT OF RANGE REFERENCE UNITS LAB ESR(LOINC) 0-20 mm/hr Sed Rate 9 Performed By: #### ESR #### [facility] [address] [place] [address] TOTAL 25-OH VITAMIN Collected: 07/23/2018 Status: F Source: [facility] D 2:30 PM HEALTH SYSTEM REPOSITORY TYPE CODE TESTS RESULT OUT OF REFERENCE UNITS RANGE LAB 25VD1(LOINC 30.0-100.0 ng/mL ) Total 25-OH 45.3 Vitamin D Performed By: #### 25VD1 #### [facility] [address] [place] [address] HIV SCREEN Collected: 07/23/2018 Status: F Source: [facility] 2:30 PM HEALTH SYSTEM REPOSITORY TYPE CODE TESTS RESULT OUT OF REFERENCE UNITS RANGE LAB 3HIV(LOINC Nonreactive ) HIV Negative Screen Performed By: #### 3HIV #### [place] [address] MYELOPEROXIDASE AB Collected: 07/23/2018 Status: F Source: [place] 2:30 PM [facility] REPOSITORY TYPE CODE TESTS RESULT OUT OF REFERENCE UNITS RANGE LAB MYEAX(LOIN C) Myeloperoxidase Ab SEE BELOW Result Comment: Myeloperoxid AutoAb <0.2 <1.0 AI Performing Laboratory: [facility] [address] [place] [address] Performed By: #### MYEAX #### [place] [address] QUANTIFERON (RAPD TB) Collected: 07/23/2018 Status: F Source: [facility] 2:30 PM HEALTH SYSTEM REPOSITORY TYPE CODE TESTS RESULT OUT OF REFERENCE UNITS RANGE LAB QUANX(LOIN C) Quantiferon (Rapd TB) SEE BELOW Result Comment: TB NIL 0.03 IU/mL TB1 Ag minus Nil 0.01 <0.35 IU/mL TB2 Ag minus Nil 0.00 <0.35 IU/mL Mitogen minus Nil 7.20 TB Result Negative NEGAT Interpretation SEE BELOW No evidence of current or previous infection with Mycobacterium tuberculosis. Performing Laboratory: [facility] [address] [place] [address] Performed By: #### QUANX #### [place] [address] DS-DNA AB Collected: 07/23/2018 Status: F Source: [place] [address]:[address] [place] [address] SYSTEM REPOSITORY TYPE CODE TESTS RESULT OUT OF RANGE REFERENCE UNITS LAB DNADX(LOINC ) DS-DNA Ab SEE BELOW Result Comment: DNA Antibody w/ Conf. <12 <30 IU/mL Negative for ds DNA Antibodies Negative: <30 IU/mL Equivocal: 30-74 IU/mL Positive: >74 IU/mL Performing Laboratory: [place] [address] Performed By: #### DNADX #### [place] [address] PRODUCE FIELD MERCHANDISER ANTIBODY Collected: 07/23/2018 Status: F Source: [facility] [address] SYSTEM REPOSITORY TYPE CODE TESTS RESULT OUT OF REFERENCE UNITS RANGE LAB RNPX(LOINC) PRODUCE FIELD MERCHANDISER Antibody SEE BELOW Result Comment: PRODUCE FIELD MERCHANDISER Antibody <0.2 <1.0 AI Negative Negative: <1.0 AI Positive: >0.9 AI Performing Laboratory: [place] [address] Performed By: #### RNPX #### [place] [address] LIMON ABS IGG Collected: 07/23/2018 Status: F Source: [facility] [address] SYSTEM REPOSITORY TYPE CODE TESTS RESULT OUT OF RANGE REFERENCE UNITS LAB SMABX(LOINC ) Limon Abs SEE BELOW IgG Result Comment: Sm Antibody <0.2 <1.0 AI Negative Negative: <1.0 AI Positive: >0.9 AI Performing Laboratory: [place] [address] Performed By: #### SMABX #### [place] [address] SJOGREN ANTIBODIES Collected: 07/23/2018 Status: F Source: [facility] [address] SYSTEM REPOSITORY TYPE CODE TESTS RESULT OUT OF REFERENCE UNITS RANGE LAB SJOX(LOINC ) Sjogren Antibodies SEE BELOW Result Comment: SSA Antibody <0.2 <1.0 AI Negative Negative: <1.0 AI Positive: >0.9 AI SSB Antibody <0.2 <1.0 AI Negative Negative: <1.0 AI Positive: >0.9 AI Performing Laboratory: [facility] [address] [place] [address] Performed By: #### SJOX #### [facility] [address] [place] [address] IGE Collected: 07/23/2018 Status: F Source: [facility] 2:30 PM HEALTH SYSTEM REPOSITORY TYPE CODE TESTS RESULT OUT OF RANGE REFERENCE UNITS LAB IGEX(LOINC) IgE SEE BELOW Result Comment: IgE 12.5 <114 kU/L Performing Laboratory: [facility] [address] [place] [address] Performed By: #### IGEX #### [facility] [address] [place] [address] CCP ANTIBODY, IGG Collected: 07/23/2018 Status: F Source: [facility] 2:[address] [place] [address] SYSTEM REPOSITORY TYPE CODE TESTS RESULT OUT OF RANGE REFERENCE UNITS LAB CCPX(LOINC) CCP SEE BELOW Antibody, IgG Result Comment: CCP Antibody, IgG <15 <20 Units < 20 units: Negative 20-39 units: Weak Positive 40-59 units: Moderate Positive > 60 units: Strong Positive The following results were obtained with the [facility] [employer] CCP3 IgG TRACY. Anti-CCP values obtained with different manufacturers' assay methods may not be used interchangeably. The magnitude of the reported IgG levels cannot be correlated to an endpoint titer. Performing Laboratory: [facility] [address] [place] [address] Performed By: #### CCPX #### [place] [address] PROTEINASE-3 AB Collected: 07/23/2018 Status: F Source: [facility] 2:[address] [place] [address] SYSTEM REPOSITORY TYPE CODE TESTS RESULT OUT OF RANGE REFERENCE UNITS LAB PRO3X(LOINC ) SEE BELOW Proteinase-3 Ab Result Comment: Proteinase 3 Ab SEE BELOW <1.0 AI Duplicate request Account Credited Performing Laboratory: [facility] [address] [place] [address] Performed By: #### PRO3X #### [facility] [address] [place] [address] ANCA SCREEN Collected: 07/23/2018 Status: F Source: [facility] 2:30 PM HEALTH SYSTEM REPOSITORY TYPE CODE TESTS RESULT OUT OF REFERENCE UNITS RANGE LAB ANCAX(LOINC ) ANCA Screen SEE BELOW Result Comment: C-ANCA Fluorescence Negative NEGAT P-ANCA Fluorescence Negative NEGAT Proteinase-3 Ab <0.2 <1.0 AI Myeloperoxidase Ab <0.2 <1.0 AI ANCA Interpretation SEE BELOW Equivocal staining seen on the screening ethanol slide but negative results on follow up confirmatory testing. Staff Review SEE BELOW Reviewed by Jaz Dutta MD ([id number]) Performing Laboratory: [place] [address] Performed By: #### ANCAX #### [facility] [address] [place] [address] PROTEIN ELECTROPHORESIS, Collected: 07/23/2018 Status: F Source: [facility] 2:30 PM [facility] REPOSITORY TYPE CODE TESTS RESULT OUT OF REFERENCE UNITS RANGE LAB SPEX(LOINC) Protein SEE BELOW Electrophoresi s, Serum Result Comment: Total Protein, SPE 7.0 6.0-8.4 g/dL Albumin 4.14 3.37-4.23 gm/dL Alpha 1 Globulin 0.24 0.18-0.31 gm/dL Alpha 2 Globulin 0.78 0.52-0.97 gm/dL Beta Globulin 1.04 0.84-1.36 gm/dL Gamma Globulin 0.79 0.70-1.44 gm/dL Interpretation SEE BELOW No definitive M protein is identified on protein electrophoresis. M Protein Location N/A M Sylvester Concentratn 0.00 0.00 gm/dL SPE Staff Review SEE BELOW Reviewed by Kelsie Rosado MD. ([id number]) Performing Laboratory: [place] [id number] Performed By: #### SPEX #### [place] [address] TRANSGLUTAMINASE ABS Collected: 07/23/2018 Status: F Source: [place] 2:30 PM [facility] REPOSITORY TYPE CODE TESTS RESULT OUT OF REFERENCE UNITS RANGE LAB TTGX(LOIN C) Transglutaminase Abs SEE BELOW Result Comment: Transglutaminase IgG 3 <20 Units Negative : < 20 Units Weak Positive : 20 - 30 Units Moderate Pos to Strong Pos: >30 Units The following results were obtained with the [facility] [employer] h-hTG IgG TRACY. h-tTG IgG values obtained with different manufacturers' assay methods may not be used interchangeably. The magnitude of the reported IgG levels cannot be correlated to an endpoint titer. Transglutaminase IgA 2 <20 Units Negative : < 20 Units Weak Positive : 20 - 30 Units Moderate Pos to Strong Pos: >30 Units The following results were obtained with the [employer] h-tTG IgA TRACY. h-tTG IgA values obtained with different manufacturers' assay methods may not be used interchangeably. The magnitude of the reported IgA levels cannot be correlated to an endpoint titer. Performing Laboratory: [place] [id number] [place] [address] Performed By: #### TTGX #### [place] [address] ANGIOTENS. CONV ENZ Collected: 07/23/2018 Status: F Source: [facility] 2:30 PM HEALTH SYSTEM REPOSITORY TYPE CODE TESTS RESULT OUT OF RANGE REFERENCE UNITS LAB ACEX(LOINC) SEE BELOW Angiotens. Conv Enz Result Comment: Angiotens. Conv Enz 21 <52 U/L Artificially low SIOBHAN levels may be found for patients taking SIOBHAN inhibitors or after the administration of gadolinium. Performing Laboratory: [place] [id number] [place] [address] Performed By: #### ACEX #### [place] [address] IGD, SERUM Collected: 07/23/2018 Status: F Source: [facility] 2:30 PM HEALTH SYSTEM REPOSITORY TYPE CODE TESTS RESULT OUT OF RANGE REFERENCE UNITS LAB IGDX(LOINC) IgD, SEE BELOW Serum Result Comment: IgD Quant <0.7 Reference range: <=15.3 Unit: mg/dL (NOTE) INTERPRETIVE INFORMATION: Immunoglobulin D, Serum IgD is one of the five classes of immunoglobulin. IgD is mainly found on the surface of B-cells and may help regulate B-cell function. IgD likely serves as an early B-cell antigen receptor, however, the function of the circulating IgD is largely unknown. Performed by [employer], [address] [place] [id number] [email or web address], Jung Pickering MD, Lab. Director Performing Laboratory: Performed By: #### IGDX #### [place] [address] HISTOPLASMA AG Collected: 07/23/2018 Status: F Source: [facility] 2:30 PM HEALTH SYSTEM REPOSITORY TYPE CODE TESTS RESULT OUT OF REFERENCE UNITS RANGE LAB HAGUX(LOIN C) Histoplasma Ag SEE BELOW Result Comment: Histoplasma Ag Ur None detected. ND ng/mL (NOTE) Reference interval: None Detected Results reported as ng/mL in 0.4 - 19.0 ng/mL range. Results above the limit of detection but below 0.4 ng/mL are reported as 'Positive, Below the Limit of Quantification'. Results above 19.0 ng/mL are reported as 'Positive, Above the Limit of Quantification'. This test was developed and its performance characteristics determined by [facility]. It has not been cleared or approved by the FDA; however, FDA clearance or approval is not currently required for clinical use. The results are not intended to be used as the sole means for clinical diagnosis or patient management decisions. Test performed by [facility], [address] [place] [address] [place] [id number] Performing Laboratory: Performed By: #### HAGUX #### [place] [address] PROGRESS Observed: 07/23/2018 Status: COMPLETED Source: [facility] 1:13 PM CLINIC OTHER CAMPUS REPOSITORY HNO ID: [id number] Author: Kavitha Terrell Service: (none) Author Type: Physician Type: Progress Notes Filed: 07/23/2018 4:54 PM Note Text: RHEUMATOLOGY NEW PATIENT NOTE REFERRING PHYSICIAN: Lester Lopez CHIEF COMPLAINT: Patient presents with: SS: swelling in lymph nodes. HPI: Mahi Tan is a 42 year old female who presents with enlarged lymph nodes. In 2017, she started to swelling of LN without any co existant infection. Imaging and biopsy was done. She then had bl knee pain and was on NSAIDs which helped. 6 months ago, recurrent LAD - neck, occipital- had CT neck and had LAD. CT abd for kidney pain and had LAD. She also has joint pain over hands, toes. Hips and Low back is tender to touch. Extreme fatigue intermittently. Sometimes knees will swell. No AM stiffness. Some gelling phenomenon. Dry mouth,mucous membranes sloughing off. Sores in the nose. She also saw schedule announcer in 11-09 but no clear diagnosis was made at that time. H/o kidney stones. She was told that she had swollen liver and spleen Fatty liver, DM2, hypothyroidism, CAD, 2 stents when she was 39 Family history of autoimmune disease: none Father had CAD <50 years. Mother had NHL, lung cancer and cervical cancer Smoking status: Tobacco Use: Never Rheumatology REVIEW OF SYSTEMS: Constitutional: Recent Weight Change: YES unintentional weight loss 20 lb Fatigue: YES Fever: YES subjective fever Night sweats: YES feels hot at night. Thyroid test was normal. Heent: Alopecia: No H/o Inflammatory eye disease (iritis/scleritis): No Hearing loss: No Frequent sinusitis: No Oral ulcers: No Sicca: YES dry mouth and nose, dry eyes for 6 months. Nasal ulcers, no nose bleeds Parotid swelling: No Hoarseness: No Dysphagia: No Heme/lymph: Lymphadenopathy: YES as hpi Hematological abnormalities (anemia, thrombocytopenia, leukopenia): YES anemia iron Abnormal bleeding: No Skin: Malar or discoid lesions: No Photosensitivity: No Other rashes: No Raynaud's phenomenon: No Hives: No Tightness: No Nodules/bumps: No Easy Bruising: No Nail changes: No H/o psoriasis: No Gastroenterology: Nausea: {No Vomiting: No Change in bowel movements: No Heartburn: No IBS, GERD - will be seeing GI Respiratory: Dry cough/SOB: No Cardiovascular: Pain in chest: YES left sided discomfort, no triggering factors, improves with time. Saw data reduction technician, normal EKG Musculoskeletal: Per HPI Joint pain or swelling: No Prolonged morning stiffness: No Back pain or neck pain: No Muscle weakness: No Genitourinary: Vaginal dryness: No Rash/ulcers: No Neurological: Headaches: YES occipital Sensitivity or pain of hands and/or feet: No H/o CTS Psychiatry: Anxiety: No Depression: YES history Poor sleep: YES had sleep study, h/o TONIO, cannot sleep due to RLS and pain, on neurontin for neuropathy H/o loss: No H/o thrombosis: YES brother had blood clots Increased susceptibility to infection: No PAST MEDICAL HISTORY Diagnosis Date - Allergic rhinitis - Anxiety - Asthma no issues for several years - Bipolar 2 disorder (HCC) 11/21/2011 - CAD (coronary artery disease) - Calculus of gallbladder without mention of cholecystitis or obstruction 08/24/2009 - Cervical high risk human papillomavirus (HPV) DNA test positive - Common cold - Depressive disorder Dr. Cornell- [facility] - Diabetes (HCC) - Diarrhea - Double vessel coronary artery disease 2 stents - Excessive or frequent menstruation Heavy periods Resolved - Female stress incontinence 01/13/2008 - Ganglion of joint 10/14/2007 - GERD (gastroesophageal reflux disease) - Hand pain - Hemorrhage of gastrointestinal tract, unspecified - History of intrauterine contraceptive device Mirena placed May 2015 Dr. Willy Schmid - Hyperlipidemia - Hypertension - Internal hemorrhoids without mention of complication - Irregular menstrual cycle Irregular periods Resolved - Irritable bowel syndrome Irritable bowel - Obesity - Obstructive sleep apnea - Onychomycosis - Other specified acquired hypothyroidism - Ovarian cystic mass 06/07/2010 - Panic attack 07/18/2010 - Papanicolaou smear of cervix with atypical squamous cells of undetermined significance (ASC-US) - Paresthesia of hand - PLANTAR Fasciitis 07/15/2007 - PTSD (post-traumatic stress disorder) - Status post left heart catheterization 10/2014 PAST SURGICAL HISTORY Procedure Laterality Date - ANGIOPLASTY 11/23/14 [facility]-proximal LAD and proximal RCA 2 stents - CARDIAC CATHETERIZATION HX 11/20/14 [facility]-proximal RCA lesion - COLONOSCOP W/ OR W/O BRSH SPEC 06/09/14 Colonoscopy - COLONOSCOPY W/BX 08/13/07 - COLPOSCOPY (VAGINOSCOPY) 2006 Colposcopy - EXCIS PRIMARY GANGLION WRIST 11/04/07 LEFT WRIST, Dr. Alcantara - LAP CHOLECYSTECT/CHOLANGIOGRAPHY 09/05/2009 Normal IOC - LIGATE [facility]ALLOPIAN [facility]BE [facility] H[facility] OF Left 01/28/15 middle trigger finger release - S SLING BLADR HARVEY TOTL [id number] 2013 [facility] - THYROIDECTOMY 01/1994 goiter no cancer Current Outpatient Prescriptions: ascorbic acid, vitamin C, (VITAMIN C) 500 mg tablet Take 500 mg by mouth once daily. melatonin 10 mg cap Take 10 mg by mouth daily at bedtime. calcium carbonate (SUPER CALCIUM ORAL) Take by mouth. gabapentin (NEURONTIN) 100 mg capsule Take 2 capsules by mouth daily at bedtime for [address] (PROTONIX) 40 mg tablet Take 1 tablet by mouth once daily. famotidine (PEPCID) 20 mg tablet Take 1 tablet by mouth daily at bedtime. JANUVIA 100 mg tablet TAKE 1 TABLET EVERY DAY levothyroxine (SYNTHROID) 175 mcg tablet Take 1 tablet by mouth once daily. Blood-Glucose Meter misc 1 Units once daily. Lancets lancets Use as instructed. Preferred insurance brand. blood sugar diagnostic (ONETOUCH ULTRA TEST) test strip Use as instructed. Insurance preferred brand. metFORMIN (GLUCOPHAGE) 1,000 mg tablet TAKE 1 TABLET TWICE DAILY WITH meals fluticasone (FLONASE) 50 mcg/actuation nasal spray Use 1 Harcourt in each nostril once daily. aspirin 81 mg chewable tablet Take 81 mg by mouth. carvedilol (COREG) 12.5 mg tablet Take 1 tablet by mouth twice daily. ferrous sulfate (IRON) 325 mg (65 mg iron) tablet Take 1 tablet by mouth daily with breakfast. albuterol HFA (VENTOLIN HFA) 90 mcg/actuation inhaler Inhale 2 Puffs as instructed every 4 hours as needed for Wheezing/Shortness of Breath. atorvastatin (LIPITOR) 20 mg tablet Take 1 tablet by mouth once daily. clopidogrel (PLAVIX) 75 mg tablet Take 1 tablet by mouth once daily. Cholecalciferol, Vitamin D3, 1,000 unit cap Take 1 capsule by mouth once daily. levonorgestrel (MIRENA) 20 mcg/24 hr (5 years) IUD 1 Each by INTRAUTERINE route continuous. blood sugar diagnostic (BLOOD GLUCOSE TEST) test strip Test blood sugar(s) one times daily. Dx: 250.00. Insulin: No Lancets lancets Test blood sugar(s) one times daily. Dx: 250.00. Insulin: No cyclobenzaprine (FLEXERIL) 10 mg tablet Take 10 mg by mouth twice daily as needed. No current facility-administered medications for this visit. ALLERGIES Allergen Reactions - Benedryl [Diphenhyd* Other: See Comments Makes her feel jittery IV- - Doxycycline Vomiting - Imitrex [Sumatripta* chest pain - Phenergan [Prometha* Intolerance restless legs IV- - Tramadol Intolerance FAMILY HISTORY Problem Relation Age of Onset - Cancer Mother /lung cancer/nonhodgkins lymphoma/Ovarian - Asthma Mother - Hyperlipidemia Mother - other (depressive disorder) Mother - Heart Father - Hyperlipidemia Father - Hypertension Father - other (cornary artery disease) Father heart attack and stents put in - Hypertension Brother - Blood Clots Brother Lungs - No Known Problems Brother - No Known Problems Brother - Osteoporosis Maternal Grandmother - Coronary Artery Disease Paternal Grandmother - Diabetes Paternal Grandmother - Coronary Artery Disease Paternal Grandfather - Hypertension Paternal Grandfather - Hypertension Son - Breast Cancer Other maternal great grandmother 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 Social History Main Topics Smoking status: Never Smoker Smokeless tobacco: Never Used Alcohol use: No Drug use: No Comment: no reported history Sexual activity: Yes Partners with: Male control/protection: Surgical, Tubal Ligation Other Topics Concern Caffeine Concern Not Asked Comment:uses caffeine Occupation: Employer And Job Title: No 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 BP 120/78 Pulse 90 Temp 37.1 ?C (98.7 ?F) Ht 165.1 cm (5' 5) Wt 101.6 kg (224 lb) BMI 37.28 kg/m? Physical Exam GENERAL: Well appearing, alert, comfortable, in no acute distress, well-hydrated, well nourished. HEENT: Negative for external ears normal. Canals are clear. Both TMs visualized and are normal. Eye Exam normal. External nose normal, no nasal ulcer or throat ulcer. Whitish patches on buccal mucosa NECK: NECK Supple, no adenopathy; thyroid symmetric, normal size, no bruits CARDIAC: regular rate and rhythm, No murmur asculated. and Equal peripheral pulses RESPIRATORY: Lungs clear to auscultation. No wheezing, rhonchi, rales VASCULAR: RRR without murmur, gallop, or rubs. No ectopy. ABDOMEN: Soft, non tender. BS active. No masses or organomegaly. LYMPHATIC: Negative for adenopathy in the neck, axillae, groin, supraclavicular and auricular. NEURO: Motor and sensory exam normal MOTOR: Normal; including tone, gait, stressed gait, power and coordination. SKIN: Negative for alopecia, skin rash, malar rash, skin lesion, skin ulcer, pits, thickening, color changes, telangiectasias, nail changes, nail ridging, nail pitting, onycholysis MUSCULOSKELETAL: DIPS: Normal PIPS: Normal MCPs: Normal Wrists: Normal Elbows: Normal Shoulders: Normal C-Spine: Normal Hips: Normal Knees: Normal Ankles: Normal MTPs / Toes: Normal Arches: Normal Summary of old labs/radiology: Review/request of outside labs and imaging: Pertinent labs: Glucose 135 03/10/2018 ALT 53 03/10/2018 WBC 7.8 03/10/2018 Hemoglobin 14.0 03/10/2018 Platelet Count 249 03/10/2018 WSR 9 12/18/2016 CRP 0.58 12/18/2016 Serology: 2017 LARISSA 1:160, RF normal Pertinent imagin08/07/16 - Biopsy of right neck mass, [facility]. Hi [facility], benign reactive lymph node.DIAGNOSIS: Flow Cytometry Analysis for Lymphoproliferative Disorders: ?There is no evidence of a B-cell or T-cell lymphoproliferative disorder. 03/01/18 CT abd/pelvis - a few borderline mildly enlarged periaortic retroperitoneal, inguinal lymph nodes 03/17/18 US head/neck - Lymph nodes bilateral neck and left occipital region, appeared normal MICROSCOPIC DIAGNOSIS: ??A: MEDIASTINUM:??BENIGN THYMIC TISSUE ??B: THYROID LOBE, RIGHT: CHRONIC THYROIDITIS ??C: PARATRACHEAL REGION, RIGHT:??LYMPHOID TISSUE ??D: MEDIASTINAL REGION:??THYMIC TISSUE WITH FOCAL GERMINAL CENTER ?FORMATION ??E: THYROID LOBE, RIGHT: ANUJ'S THYROIDITIS ??F: THYROID LOBE, LEFT: 1. ANUJ'S THYROIDITIS ? 2. PORTION OF PARATHYROID Assessment and Plan (R76.8) Positive LARISSA (antinuclear antibody) (primary encounter diagnosis) (M25.50) Pain in joint, multiple sites (R59.1) Lymphadenopathy, generalized (R63.4) Weight loss 42-year-old very pleasant female is here for evaluation and recommendations for positive LARISSA in the setting of cervical, occipital, abdominal lymphadenopathy and joint pain. Patient also reports sicca symptoms and significant unintentional weight loss. Her presentation is concerning for a systemic inflammatory disease like lupus, Sjogren's syndrome other etiologies like sarcoidosis inflammatory arthritis IgG for related disease etc. however chronic infectious or malignancy would still be in the differential. She will need comprehensive workup as below and close follow- ups. She has family history of malignancy and therefore if the following workup is negative a formal evaluation by infectious disease/hematology oncology would be reasonable. Chronic fungal or mycobacterial infection is another possibility however she lacks clinical features. Chest x-ray today did not show hilar lymphadenopathy. No significant hematological abnormalities noted. However she reports having liver and spleen enlargement could be related to fatty liver. She is getting evaluated by GI in nov. Office Visit on 07/23/18 -XR CHEST 2V FRONTAL/LAT -HIV 1,2 COMBO (AG/AB) -BLOOD TB SCREEN, INCUBATED -C3 COMPLEMENT BLD -C4 COMPLEMENT BLD -DNA ANTIBODY DS BLD -PRODUCE FIELD MERCHANDISER ANTIBODY BLOOD -LIMON IGG AB -SJOGREN ABS SSA/SSB -IGG -IGM -IGE BLD -IGA BLD -IMMUNOGLOBULIN D QUANT, SERUM -RHEUMATOID FACTOR BL -CCP ANTIBODY IGG -CK CREATINE KINASE -MYELOPEROXIDASE -PROTEINASE 3 ANTIBODY -ANTI NEUTRO CYTO AB -CBC + DIFF -COMP METABOLIC PANEL -C-REACTIVE PROTEIN (CRP) -SED RATE WESTERGREN -FERRITIN BLD -PROTEIN ELECTROPHORESIS W/INTERP -VITAMIN D 25 HYDROXY -TRANSGLUTAMINASE ABS -UA WITH CULTURE IF INDICATED -CREATININE RANDOM UR -PROTEIN RANDOM UR -HISTOPLASMA AG URINE -SIOBHAN/ANGIOTENSIN BLD Medication orders placed this encounter ascorbic acid, vitamin C, (VITAMIN C) 500 mg tablet Sig: Take 500 mg by mouth once daily. calcium carbonate (SUPER CALCIUM ORAL) Sig: Take by mouth. melatonin 10 mg cap Sig: Take 10 mg by mouth daily at bedtime. Return in about 4 weeks (around 08/20/2018) for discuss lab results. Kavitha Terrell MD CNOV Observed: 07/23/2018 Status: COMPLETED Source: [facility] 1:00 PM CLINIC OTHER CAMPUS REPOSITORY Office Visit ([facility]) MHAI TAN ([id number]) 1975 F Date Time Provider Department 07/23/18 1:00 PM KAVITHA TERRELL LAUREN During your visit today, we recorded the following information about you: Temperature Pulse Blood pressure Weight 98.7 degrees 90/minute 120/78 101.6 kg Height 1.651 m Kavitha Terrell MD 07/23/2018 4:54 PM Signed RHEUMATOLOGY NEW PATIENT NOTE REFERRING PHYSICIAN: Lester Lopez CHIEF COMPLAINT: Patient presents with: SS: swelling in lymph nodes. HPI: Mahi Tan is a 42 year old female who presents with enlarged lymph nodes. In 2016, she started to swelling of LN without any co existant infection. Imaging and biopsy was done. She then had bl knee pain and was on NSAIDs which helped. 6 months ago, recurrent LAD - neck, occipital- had CT neck and had LAD. CT abd for kidney pain and had LAD. She also has joint pain over hands, toes. Hips and Low back is tender to touch. Extreme fatigue intermittently. Sometimes knees will swell. No AM stiffness. Some gelling phenomenon. Dry mouth,mucous membranes sloughing off. Sores in the nose. She also saw schedule announcer in 11-09 but no clear diagnosis was made at that time. H/o kidney stones. She was told that she had swollen liver and spleen Fatty liver, DM2, hypothyroidism, CAD, 2 stents when she was 39 Family history of autoimmune disease: none Father had CAD <50 years. Mother had NHL, lung cancer and cervical cancer Smoking status: Tobacco Use: Never Rheumatology REVIEW OF SYSTEMS: Constitutional: Recent Weight Change: YES unintentional weight loss 20 lb Fatigue: YES Fever: YES subjective fever Night sweats: YES feels hot at night. Thyroid test was normal. Heent: Alopecia: No H/o Inflammatory eye disease (iritis/scleritis): No Hearing loss: No Frequent sinusitis: No Oral ulcers: No Sicca: YES dry mouth and nose, dry eyes for 6 months. Nasal ulcers, no nose bleeds Parotid swelling: No Hoarseness: No Dysphagia: No Heme/lymph: Lymphadenopathy: YES as hpi Hematological abnormalities (anemia, thrombocytopenia, leukopenia): YES anemia iron Abnormal bleeding: No Skin: Malar or discoid lesions: No Photosensitivity: No Other rashes: No Raynaud's phenomenon: No Hives: No Tightness: No Nodules/bumps: No Easy Bruising: No Nail changes: No H/o psoriasis: No Gastroenterology: Nausea: {No Vomiting: No Change in bowel movements: No Heartburn: No IBS, GERD - will be seeing GI Respiratory: Dry cough/SOB: No Cardiovascular: Pain in chest: YES left sided discomfort, no triggering factors, improves with time. Saw data reduction technician, normal EKG Musculoskeletal: Per HPI Joint pain or swelling: No Prolonged morning stiffness: No Back pain or neck pain: No Muscle weakness: No Genitourinary: Vaginal dryness: No Rash/ulcers: No Neurological: Headaches: YES occipital Sensitivity or pain of hands and/or feet: No H/o CTS Psychiatry: Anxiety: No Depression: YES history Poor sleep: YES had sleep study, h/o TONIO, cannot sleep due to RLS and pain, on neurontin for neuropathy H/o loss: No H/o thrombosis: YES brother had blood clots Increased susceptibility to infection: No PAST MEDICAL HISTORY Diagnosis Date - Allergic rhinitis - Anxiety - Asthma no issues for several years - Bipolar 2 disorder (HCC) 11/21/2011 - CAD (coronary artery disease) - Calculus of gallbladder without mention of cholecystitis or obstruction 08/24/2009 - Cervical high risk human papillomavirus (HPV) DNA test positive - Common cold - Depressive disorder Dr. Cornell- [facility] - Diabetes ([facility]) - Diarrhea - Double vessel coronary artery disease 2 stents - Excessive or frequent menstruation Heavy periods Resolved - Female stress incontinence 01/13/2008 - Ganglion of joint 10/14/2007 - GERD (gastroesophageal reflux disease) - Hand pain - Hemorrhage of gastrointestinal tract, unspecified - History of intrauterine contraceptive device Mirena placed May 2015 Dr. Willy Schmid - Hyperlipidemia - Hypertension - Internal hemorrhoids without mention of complication - Irregular menstrual cycle Irregular periods Resolved - Irritable bowel syndrome Irritable bowel - Obesity - Obstructive sleep apnea - Onychomycosis - Other specified acquired hypothyroidism - Ovarian cystic mass 06/07/2010 - Panic attack 07/18/2010 - Papanicolaou smear of cervix with atypical squamous cells of undetermined significance (ASC-US) - Paresthesia of hand - PLANTAR Fasciitis 07/15/2007 - PTSD (post-traumatic stress disorder) - Status post left heart catheterization 10/2014 PAST SURGICAL HISTORY Procedure Laterality Date - ANGIOPLASTY 11/23/14 [facility]-proximal LAD and proximal RCA 2 stents - CARDIAC CATHETERIZATION HX 11/20/14 [facility]-proximal RCA lesion - COLONOSCOP W/ OR W/O BRSH SPEC 06/09/14 Colonoscopy - COLONOSCOPY W/BX 08/13/07 - COLPOSCOPY (VAGINOSCOPY) 2006 Colposcopy - EXCIS PRIMARY GANGLION WRIST 11/04/07 LEFT WRIST, Dr. Alcantara - LAP CHOLECYSTECT/CHOLANGIOGRAPHY 09/05/2009 Normal IOC - LIGATE FALLOPIAN TUBE 10/1998 Tubal ligation, [facility] - PAST SURGICAL HISTORY OF Left 01/28/15 middle trigger finger release - S SLING [place]ANIELLE HARVEY TOTScott [id number] 2013 [facility] - THYROIDECTOMY 01/1994 goiter no cancer Current Outpatient Prescriptions: ascorbic acid, vitamin C, (VITAMIN C) 500 mg tablet Take 500 mg by mouth once daily. melatonin 10 mg cap Take 10 mg by mouth daily at bedtime. calcium carbonate (SUPER CALCIUM ORAL) Take by mouth. gabapentin (NEURONTIN) 100 mg capsule Take 2 capsules by mouth daily at bedtime for [address] (PROTONIX) 40 mg tablet Take 1 tablet by mouth once daily. famotidine (PEPCID) 20 mg tablet Take 1 tablet by mouth daily at bedtime. JANUVIA 100 mg tablet TAKE 1 TABLET EVERY DAY levothyroxine (SYNTHROID) 175 mcg tablet Take 1 tablet by mouth once daily. Blood-Glucose Meter misc 1 Units once daily. Lancets lancets Use as instructed. Preferred insurance brand. blood sugar diagnostic (4C InsightsTOUCH ULTRA TEST) test strip Use as instructed. Insurance preferred brand. metFORMIN (GLUCOPHAGE) 1,000 mg tablet TAKE 1 TABLET TWICE DAILY WITH meals fluticasone (FLONASE) 50 mcg/actuation nasal spray Use 1 [place]ourt in each nostril once daily. aspirin 81 mg chewable tablet Take 81 mg by mouth. carvedilol (COREG) 12.5 mg tablet Take 1 tablet by mouth twice daily. ferrous sulfate (IRON) 325 mg (65 mg iron) tablet Take 1 tablet by mouth daily with breakfast. albuterol HFA (VENTOLIN HFA) 90 mcg/actuation inhaler Inhale 2 Puffs as instructed every 4 hours as needed for Wheezing/Shortness of Breath. atorvastatin (LIPITOR) 20 mg tablet Take 1 tablet by mouth once daily. clopidogrel (PLAVIX) 75 mg tablet Take 1 tablet by mouth once daily. Cholecalciferol, Vitamin D3, 1,000 unit cap Take 1 capsule by mouth once daily. levonorgestrel (MIRENA) 20 mcg/24 hr (5 years) IUD 1 Each by INTRAUTERINE route continuous. blood sugar diagnostic (BLOOD GLUCOSE TEST) test strip Test blood sugar(s) one times daily. Dx: 250.00. Insulin: No Lancets lancets Test blood sugar(s) one times daily. Dx: 250.00. Insulin: No cyclobenzaprine (FLEXERIL) 10 mg tablet Take 10 mg by mouth twice daily as needed. No current facility-administered medications for this visit. ALLERGIES Allergen Reactions - Benedryl [Diphenhyd* Other: See Comments Makes her feel jittery IV- - Doxycycline Vomiting - Imitrex [Sumatripta* chest pain - Phenergan [Prometha* Intolerance restless legs IV- - Tramadol Intolerance FAMILY HISTORY Problem Relation Age of Onset - Cancer Mother /lung cancer/nonhodgkins lymphoma/Ovarian - Asthma Mother - Hyperlipidemia Mother - other (depressive disorder) Mother - Heart Father - Hyperlipidemia Father - Hypertension Father - other (cornary artery disease) Father heart attack and stents put in - Hypertension Brother - Blood Clots Brother Lungs - No Known Problems Brother - No Known Problems Brother - Osteoporosis Maternal Grandmother - Coronary Artery Disease Paternal Grandmother - Diabetes Paternal Grandmother - Coronary Artery Disease Paternal Grandfather - Hypertension Paternal Grandfather - Hypertension Son - Breast Cancer Other maternal great grandmother 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 Social History Main Topics Smoking status: Never Smoker Smokeless tobacco: Never Used Alcohol use: No Drug use: No Comment: no reported history Sexual activity: Yes Partners with: Male control/protection: Surgical, Tubal Ligation Other Topics Concern Caffeine Concern Not Asked Comment:uses caffeine Occupation: Employer And Job Title: No 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 BP 120/78 Pulse 90 Temp 37.1 ?C (98.7 ?F) Ht 165.1 cm (5' 5) Wt 101.6 kg (224 lb) BMI 37.28 kg/m? Physical Exam GENERAL: Well appearing, alert, comfortable, in no acute distress, well-hydrated, well nourished. HEENT: Negative for external ears normal. Canals are clear. Both TMs visualized and are normal. Eye Exam normal. External nose normal, no nasal ulcer or throat ulcer. Whitish patches on buccal mucosa NECK: NECK Supple, no adenopathy; thyroid symmetric, normal size, no bruits CARDIAC: regular rate and rhythm, No murmur asculated. and Equal peripheral pulses RESPIRATORY: Lungs clear to auscultation. No wheezing, rhonchi, rales VASCULAR: RRR without murmur, gallop, or rubs. No ectopy. ABDOMEN: Soft, non tender. BS active. No masses or organomegaly. LYMPHATIC: Negative for adenopathy in the neck, axillae, groin, supraclavicular and auricular. NEURO: Motor and sensory exam normal MOTOR: Normal; including tone, gait, stressed gait, power and coordination. SKIN: Negative for alopecia, skin rash, malar rash, skin lesion, skin ulcer, pits, thickening, color changes, telangiectasias, nail changes, nail ridging, nail pitting, onycholysis MUSCULOSKELETAL: DIPS: Normal PIPS: Normal MCPs: Normal Wrists: Normal Elbows: Normal Shoulders: Normal C-Spine: Normal Hips: Normal Knees: Normal Ankles: Normal MTPs / Toes: Normal Arches: Normal Summary of old labs/radiology: Review/request of outside labs and imaging: Pertinent labs: Glucose 135 03/10/2018 ALT 53 03/10/2018 WBC 7.8 03/10/2018 Hemoglobin 14.0 03/10/2018 Platelet Count 249 03/10/2018 WSR 9 12/18/2016 CRP 0.58 12/18/2016 Serology: 2017 LARISSA 1:160, RF normal Pertinent imagin08/07/16 - Biopsy of right neck mass, [facility] Hi [facility], benign reactive lymph node.DIAGNOSIS: Flow Cytometry Analysis for Lymphoproliferative Disorders: ?There is no evidence of a B-cell or T-cell lymphoproliferative disorder. 03/01/18 CT abd/pelvis - a few borderline mildly enlarged periaortic retroperitoneal, inguinal lymph nodes 03/17/18 US head/neck - Lymph nodes bilateral neck and left occipital region, appeared normal MICROSCOPIC DIAGNOSIS: ??A: MEDIASTINUM:??BENIGN THYMIC TISSUE ??B: THYROID LOBE, RIGHT: CHRONIC THYROIDITIS ??C: PARATRACHEAL REGION, RIGHT:??LYMPHOID TISSUE ??D: MEDIASTINAL REGION:??THYMIC TISSUE WITH FOCAL GERMINAL CENTER ?FORMATION ??E: THYROID LOBE, RIGHT: ANUJ'S THYROIDITIS ??F: THYROID LOBE, LEFT: 1. ANUJ'S THYROIDITIS ? 2. PORTION OF PARATHYROID Assessment and Plan (R76.8) Positive LARISSA (antinuclear antibody) (primary encounter diagnosis) (M25.50) Pain in joint, multiple sites (R59.1) Lymphadenopathy, generalized (R63.4) Weight loss 42-year-old very pleasant female is here for evaluation and recommendations for positive LARISSA in the setting of cervical, occipital, abdominal lymphadenopathy and joint pain. Patient also reports sicca symptoms and significant unintentional weight loss. Her presentation is concerning for a systemic inflammatory disease like lupus, Sjogren's syndrome other etiologies like sarcoidosis inflammatory arthritis IgG for related disease etc. however chronic infectious or malignancy would still be in the differential. She will need comprehensive workup as below and close follow- ups. She has family history of malignancy and therefore if the following workup is negative a formal evaluation by infectious disease/hematology oncology would be reasonable. Chronic fungal or mycobacterial infection is another possibility however she lacks clinical features. Chest x-ray today did not show hilar lymphadenopathy. No significant hematological abnormalities noted. However she reports having liver and spleen enlargement could be related to fatty liver. She is getting evaluated by GI in nov. Office Visit on 07/23/18 -XR CHEST 2V FRONTAL/LAT -HIV 1,2 COMBO (AG/AB) -BLOOD TB SCREEN, INCUBATED -C3 COMPLEMENT BLD -C4 COMPLEMENT BLD -DNA ANTIBODY DS BLD -PRODUCE FIELD MERCHANDISER ANTIBODY BLOOD -LIMON IGG AB -SJOGREN ABS SSA/SSB -IGG -IGM -IGE BLD -IGA BLD -IMMUNOGLOBULIN D QUANT, SERUM -RHEUMATOID FACTOR BL -CCP ANTIBODY IGG -CK CREATINE KINASE -MYELOPEROXIDASE -PROTEINASE 3 ANTIBODY -ANTI NEUTRO CYTO AB -CBC + DIFF -COMP METABOLIC PANEL -C-REACTIVE PROTEIN (CRP) -SED RATE WESTERGREN -FERRITIN BLD -PROTEIN ELECTROPHORESIS W/INTERP -VITAMIN D 25 HYDROXY -TRANSGLUTAMINASE ABS -UA WITH CULTURE IF INDICATED -CREATININE RANDOM UR -PROTEIN RANDOM UR -HISTOPLASMA AG URINE -SIOBHAN/ANGIOTENSIN BLD Medication orders placed this encounter ascorbic acid, vitamin C, (VITAMIN C) 500 mg tablet Sig: Take 500 mg by mouth once daily. calcium carbonate (SUPER CALCIUM ORAL) Sig: Take by mouth. melatonin 10 mg cap Sig: Take 10 mg by mouth daily at bedtime. Return in about 4 weeks (around 08/20/2018) for discuss lab results. Kavitha Terrell MD Referring Provider: LESTER LOPEZ ([facility]) [[id number]] Allergies As of Date: 07/23/2018 Noted Allergy Reaction BENEDRYL (DIPHENHYDRAMINE) 07/01/2009 14 - Other: See Comments Comments: Makes her feel jittery IV- DOXYCYCLINE 08/13/2006 11 - Vomiting IMITREX (SUMATRIPTAN SUCCINATE) 12/06/2009 Comments: chest pain PHENERGAN (PROMETHAZINE HCL) 06/14/2010 5 - Intolerance Comments: restless legs IV- TRAMADOL 07/05/2017 5 - Intolerance Date Reviewed: 07/23/2018 Reviewed by: Ewelina ([facility]) Daryl - Fully Assessed Reason for Visit: SS [1319] Cmt: swelling in lymph nodes. Primary Visit Diagnosis:Positive LARISSA (antinuclear antibody) [R76.8] Other Visit Diagnoses:Pain in joint, multiple sites [M25.50] Lymphadenopathy, generalized [R59.1] Weight loss [R63.4] Order(s):HIV 1,2 COMBO (AG/AB) [SQHIV12] Order #: [id number] FUTURE BLOOD TB SCREEN, INCUBATED [SQINTPGP] Order #: [id number] FUTURE C3 COMPLEMENT BLD [ZRG3GVLH] Order #: [id number] FUTURE C4 COMPLEMENT BLD [XOV2OCCN] Order #: [id number] FUTURE DNA ANTIBODY DS BLD [SQDNAAB] Order #: [id number] FUTURE PRODUCE FIELD MERCHANDISER ANTIBODY BLOOD [SQARNP] Order #: [id number] FUTURE LIMON IGG AB [SQSMAB] Order #: [id number] FUTURE SJOGREN ABS SSA/SSB [SQXSSAB] Order #: [id number] FUTURE IGG [SQIGG] Order #: [id number] FUTURE IGM [SQIGM] Order #: [id number] FUTURE IGE BLD [SQIGE] Order #: [id number] FUTURE IGA BLD [SQIGA] Order #: [id number] FUTURE IMMUNOGLOBULIN D QUANT, SERUM [SQIGDQNT] Order #: [id number] FUTURE RHEUMATOID FACTOR BL [SQRF] Order #: [id number] FUTURE CCP ANTIBODY IGG [SQCCP] Order #: [id number] FUTURE CK CREATINE KINASE [SQCK] Order #: [id number] FUTURE MYELOPEROXIDASE [SQMPO] Order #: [id number] FUTURE PROTEINASE 3 ANTIBODY [SQANCAC] Order #: [id number] FUTURE ANTI NEUTRO CYTO AB [SQANCA] Order #: [id number] FUTURE CBC + DIFF [SQCBCDIF] Order #: [id number] FUTURE COMP METABOLIC PANEL [SQCMP] Order #: [id number] FUTURE C-REACTIVE PROTEIN (CRP) [SQCRP] Order #: [id number] FUTURE SED RATE WESTERGREN [SQWSR] Order #: [id number] FUTURE FERRITIN BLD [SQFERR] Order #: [id number] FUTURE PROTEIN ELECTROPHORESIS W/INTERP [SQSEPG] Order #: [id number] FUTURE VITAMIN D 25 HYDROXY [SQVITD] Order #: [id number] FUTURE TRANSGLUTAMINASE ABS [SQTGLGMA] Order #: [id number] FUTURE UA WITH CULTURE IF INDICATED [SQUACII] Order #: [id number] FUTURE CREATININE RANDOM UR [SQUCRR] Order #: [id number] FUTURE PROTEIN RANDOM UR [SQUTPR] Order #: [id number] FUTURE XR CHEST 2V FRONTAL/LAT [[id number]] Order #: [id number] FUTURE HISTOPLASMA AG URINE [SQUHISTO] Order #: [id number] SIOBHAN/ANGIOTENSIN BLD [SQACE] Order #: [id number] FUTURE Prescriptions as of 07/23/2018 Sig: ASCORBIC ACID (VITAMIN C) 500* Take 500 mg by mouth once babar* MELATONIN 10 MG CAPSULE Take 10 mg by mouth daily at * SUPER CALCIUM ORAL Take by mouth. GABAPENTIN 100 MG CAPSULE Take 2 capsules by mouth janay* PANTOPRAZOLE 40 MG TABLET,DEL* Take 1 tablet by mouth once d* FAMOTIDINE 20 MG TABLET Take 1 tablet by mouth daily * JANUVIA 100 MG TABLET TAKE 1 TABLET EVERY DAY LEVOTHYROXINE 175 MCG TABLET Take 1 tablet by mouth once d* BLOOD-GLUCOSE METER 1 Units once daily. LANCETS Use as instructed. Preferred * BLOOD SUGAR DIAGNOSTIC STRIPS Use as instructed. Insurance * METFORMIN 1,000 MG TABLET TAKE 1 TABLET TWICE DAILY WIT* FLUTICASONE 50 MCG/ACTUATION * Use 1 Harcourt in each nostril o* ASPIRIN 81 MG CHEWABLE TABLET Take 81 mg by mouth. CARVEDILOL 12.5 MG TABLET Take 1 tablet by mouth twice * FERROUS SULFATE 325 MG (65 MG* Take 1 tablet by mouth daily * ALBUTEROL SULFATE HFA 90 MCG/* Inhale 2 Puffs as instructed * ATORVASTATIN 20 MG TABLET Take 1 tablet by mouth once d* CLOPIDOGREL 75 MG TABLET Take 1 tablet by mouth once d* CHOLECALCIFEROL (VITAMIN D3) * Take 1 capsule by mouth once * LEVONORGESTREL 20 MCG/24 HR (* 1 Each by INTRAUTERINE route * BLOOD SUGAR DIAGNOSTIC STRIPS Test blood sugar(s) one times* LANCETS Test blood sugar(s) one times* CYCLOBENZAPRINE 10 MG TABLET Take 10 mg by mouth twice babar* Problem List As Of Date 07/23/2018 Noted Resolved Chest pain, unspecified [R07.9] INVALID FOR*11/21/2011 Essential hypertension, benign [I10] INVALID FOR*11/21/2011 Shortness of breath [R06.02] INVALID FOR*11/21/2011 Restless legs syndrome (RLS) [G25.81] INVALID FOR* Insomnia [G47.00] INVALID FOR* PLANTAR Fasciitis [M72.2] INVALID FOR*11/21/2011 Diarrhea [R19.7] INVALID FOR*09/29/2014 Hemorrhage of gastrointestinal tract [K92.2] INVALID FOR* Internal hemorrhoids without mention of complic*INVALID FOR*11/21/2011 Ganglion of joint [M67.40] INVALID FOR*11/21/2011 Irritable bowel syndrome [K58.9] INVALID FOR* PAP SMEAR OF CERVIX W ASCUS [R87.610] INVALID FOR* Cervical high risk human papillomavirus (HPV) D*INVALID FOR* Female stress incontinence [N39.3] INVALID FOR* Pain in limb [M79.609] INVALID FOR*11/21/2011 Calcaneal spur [M77.30] INVALID FOR*11/21/2011 Depressive disorder, not elsewhere classified [*INVALID FOR*11/21/2011 Microscopic hematuria [R31.29] INVALID FOR*11/21/2011 Pain in joint, pelvic region and thigh [M25.559]INVALID FOR*11/21/2011 Cholelithiasis NOS [K80.20] INVALID FOR*11/21/2011 Hypothyroid [E03.9] INVALID FOR* Ovarian cystic mass [N83.209] INVALID FOR*11/21/2011 Depression, major [F32.9] 11/21/2011 Panic attack [F41.0] INVALID FOR*11/21/2011 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] INVALID FOR* Backache, unspecified [M54.9] INVALID FOR*09/29/2014 Cervicalgia [M54.2] INVALID FOR*09/29/2014 Bipolar 2 disorder (HCC) [F31.81] INVALID FOR* Dysuria [R30.0] INVALID FOR*09/29/2014 Hematuria [R31.9] INVALID FOR* Urinary tract infection [N39.0] INVALID FOR*09/29/2014 Urgency of urination [R39.15] INVALID FOR*09/29/2014 Frequency of urination [R35.0] INVALID FOR*09/29/2014 Low back pain [M54.5] INVALID FOR* Family history of ovarian cancer [Z80.41] INVALID FOR* LADONNA (stress urinary incontinence, female) [N39.*INVALID FOR* Cystocele [NNQ2254] INVALID FOR* Type 2 diabetes mellitus without complication (*INVALID FOR* Trigger middle finger of left hand [M65.332] INVALID FOR* Coronary atherosclerosis [I25.10] INVALID FOR* More... Essential hypertension [I10] INVALID FOR* Morbid obesity with BMI of 40.0-44.9, adult (HC*INVALID FOR* GERD (gastroesophageal reflux disease) [K21.9] INVALID FOR* TONIO (obstructive sleep apnea) [G47.33] INVALID FOR* More... Iron deficiency concern [E61.1] INVALID FOR* Presence of drug coated stent in LAD coronary a*INVALID FOR* Family history of ischemic heart disease [Z82.4*INVALID FOR* Presence of drug coated stent in right coronary*INVALID FOR* Vitamin D insufficiency [E55.9] INVALID FOR* Sprain of lumbar region-BWC [S33.5XXA] INVALID FOR* Anterior cervical lymphadenopathy [R59.0] INVALID FOR* More... Axillary lymphadenopathy [R59.0] INVALID FOR*08/14/2016 More... Onychomycosis [B35.1] INVALID FOR* Mild intermittent asthma without complication [*INVALID FOR* Prolonged QT interval [R94.31] INVALID FOR* Chronic pain of left knee [M25.562, G89.29] INVALID FOR* Iron deficiency anemia [D50.9] INVALID FOR* Gastroesophageal reflux disease [K21.9] INVALID FOR* Family history of coronary artery disease [Z82.*INVALID FOR* Hyperlipidemia [E78.5] INVALID FOR* Obesity, Class II, BMI 35-39.9 E66.9 [E66.9] INVALID FOR* Asthma [J45.909] INVALID FOR* History of cholecystectomy [Z90.49] INVALID FOR* History of thyroidectomy [Z98.890] INVALID FOR* alf (current) use of antithrombotics/anti*INVALID FOR* alf (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 [Z79.82] INVALID FOR* 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*INVALID FOR* Sprain of ankle [S93.409A] INVALID FOR* Lymphadenopathy, generalized [R59.1] INVALID FOR* Pain in joint, multiple sites [M25.50] INVALID FOR* Positive LARISSA (antinuclear antibody) [R76.8] INVALID FOR* Disposition: Return in about 4 weeks (around 08/20/2018) for discuss lab results. Follow-up and Disposition History Recorded Questionnaire: ALIZA PELAYO YEARLY ADL ASSESSMENT Toileting -> Independent Bathing -> Independent Upper Body Dressing -> Independent Lower Body Dressing -> Independent Grooming/Hygiene -> Independent Self Feeding -> Independent Home Management (laundry/cleaning/chores/simple meal prep) -> Independent Letter Text Encounter Status:Closed by KAVITHA TERRELL MD on 07/23/18 PROGRESS Observed: 05/21/2018 Status: COMPLETED Source: [facility] 3:52 PM [facility] RE[facility]IT[facility] HNO ID: [id number] Author: Lester Perry) Jessica Service: (none) Author Type: Nurse Practitioner Type: Progress Notes Filed: 05/21/2018 5:46 PM Note Text: Subjective HPI Here today for diabetes follow-up visit. Patient has type 2 diabetes. Denies dizziness, chest pain, shortness of breath, changes in vision, fatigue, foot pain. Denies numbness and tingling in extremities. Denies polydipsia, polyphagia, polyuria. Home Blood Sugars: 100 - 130 Medication Compliance: She is compliant with medications. On Januvia 100 mg daily and metformin 1,000 mg BID Low Blood Sugars: No Diet: Fairly healthy Exercise: Walking Eye Exam: Due next month Podiatry: No recent visits Tobacco use - Never a smoker Alcohol use - None Within the last 6 months has been getting swollen lymph nodes on and off. Feels very fatigued and gets migraines when they swell. She has palpated them to her neck, back of head, abdominal wall, groin. They feel sore at times. Went to ER in February for abdominal pain and CT showed mildly enlarged inguinal lymph nodes and hepatosplenomegaly. Saw EXPLOSIVE EXPERT Suad here in our office for f/u visit. Abdominal US completed and confirmed enlarged liver and spleen. US of neck and occipital region completed showing some enlarged lymph nodes but they appeared reactive. Labs were done - unremarkable. Her mother had NonHodgkins Lymphoma Patient with history of lymph node biopsy - normal. About 1 year ago. She was referred to rheumatology and has appointment with Dr. English in June. She was referred to GI for enlarged liver and has appointment with Dr. Castaneda in July. Other symptoms she is concerned about: Inside of cheeks - skin sloughing off, white thin layer Sores on inside of nose Cuticles swell up and painful, drains yellow. Had IANDD in ER a couple of times. Occasional overheating and redness of cheeks. Sprained right ankle March 26. Still swells up. Went to ER - x-ray was normal. She is able to bear weight no difficulty. Overall pain has improved greatly. Just mild soreness intermittently. She follows with data reduction technician, Dr. Samano once a year for CAD, cardiac stents, HTN. History of sleep apnea. Never scheduled her split study and would like to get done. Wants to try CPAP again. RLS - stable on gabapentin PAST MEDICAL HISTORY Diagnosis Date - Allergic rhinitis - Anxiety - Asthma no issues for several years - Bipolar 2 disorder (HCC) 11/21/2011 - CAD (coronary artery disease) - Calculus of gallbladder without mention of cholecystitis or obstruction 08/24/2009 - Cervical high risk human papillomavirus (HPV) DNA test positive - Common cold - Depression, major - Depressive disorder Dr. Cornell- [facility] - Diabetes ([facility]) - Diarrhea - Double vessel coronary artery disease 2 stents - Excessive or frequent menstruation Heavy periods Resolved - Female stress incontinence 01/13/2008 - Ganglion of joint 10/14/2007 - GERD (gastroesophageal reflux disease) - Hand joint pain - Hand pain - Hemorrhage of gastrointestinal tract, unspecified - History of intrauterine contraceptive device Mirena placed May 2015 Dr. Willy Schmid - Hyperlipidemia - Hypertension - Internal hemorrhoids without mention of complication - Irregular menstrual cycle Irregular periods Resolved - Irritable bowel syndrome Irritable bowel - Itching - Obesity - Obstructive sleep apnea - Onychomycosis - Other specified acquired hypothyroidism - Ovarian cystic mass 06/07/2010 - Panic attack 07/18/2010 - Papanicolaou smear of cervix with atypical squamous cells of undetermined significance (ASC-US) - Paresthesia of hand - PLANTAR Fasciitis 07/15/2007 - PMH - PAST MEDICAL HISTORY OF restless leg syndrome - PTSD (post-traumatic stress disorder) - Status post left heart catheterization 10/2014 PAST SURGICAL HISTORY Procedure Laterality Date - ANGIOPLASTY 11/23/14 [facility]-proximal LAD and proximal RCA 2 stents - CARDIAC CATHETERIZATION HX 11/20/14 [facility]-proximal RCA lesion - COLONOSCOP W/ OR W/O [facility] SPEC 06/09/14 Colonoscopy - COLONOSCOPY W/BX 08/13/07 - COLPOSCOPY (VAGINOSCOPY) 2006 Colposcopy - EXCIS PRIMARY GANGLION WRIST 11/04/07 LEFT WRIST, Dr. Alcantara - LAP CHOLECYSTECT/CHOLANGIOGRAPHY 09/05/2009 Normal IOC - LIGATE FALLOPIAN TUBE 10/1998 Tubal ligation, [facility] - PAST SURGICAL HISTORY OF Left 01/28/15 middle trigger finger release - S SLING DANIELLE HARVEY TOTL 4822 2013 [facility] - THYROIDECTOMY 01/1994 goiter no cancer ALLERGIES Benedryl [Diphenhydramine]; Doxycycline; Imitrex [Sumatriptan Succinate]; Phenergan [Promethazine Hcl]; Tramadol MEDICATIONS gabapentin (NEURONTIN) 100 mg capsule TAKE 2 CAPSULES AT BEDTIME pantoprazole DR (PROTONIX) 40 mg tablet Take 1 tablet by mouth once daily. famotidine (PEPCID) 20 mg tablet Take 1 tablet by mouth daily at bedtime. JANUVIA 100 mg tablet TAKE 1 TABLET EVERY DAY levothyroxine (SYNTHROID) 175 mcg tablet Take 1 tablet by mouth once daily. Blood-Glucose Meter misc 1 Units once daily. Lancets lancets Use as instructed. Preferred insurance brand. blood sugar diagnostic (ONETOUCH ULTRA TEST) test strip Use as instructed. Insurance preferred brand. metFORMIN (GLUCOPHAGE) 1,000 mg tablet TAKE 1 TABLET TWICE DAILY WITH meals fluticasone (FLONASE) 50 mcg/actuation nasal spray Use 1 Harcourt in each nostril once daily. aspirin 81 mg chewable tablet Take 81 mg by mouth. carvedilol (COREG) 12.5 mg tablet Take 1 tablet by mouth twice daily. ferrous sulfate (IRON) 325 mg (65 mg iron) tablet Take 1 tablet by mouth daily with breakfast. albuterol HFA (VENTOLIN HFA) 90 mcg/actuation inhaler Inhale 2 Puffs as instructed every 4 hours as needed for Wheezing/Shortness of Breath. atorvastatin (LIPITOR) 20 mg tablet Take 1 tablet by mouth once daily. clopidogrel (PLAVIX) 75 mg tablet Take 1 tablet by mouth once daily. Cholecalciferol, Vitamin D3, 1,000 unit cap Take 1 capsule by mouth once daily. levonorgestrel (MIRENA) 20 mcg/24 hr (5 years) IUD 1 Each by INTRAUTERINE route continuous. blood sugar diagnostic (BLOOD GLUCOSE TEST) test strip Test blood sugar(s) one times daily. Dx: 250.00. Insulin: No Lancets lancets Test blood sugar(s) one times daily. Dx: 250.00. Insulin: No cyclobenzaprine (FLEXERIL) 10 mg tablet Take 10 mg by mouth twice daily as needed. FAMILY HISTORY Problem Relation Age of Onset - Cancer Mother /lung cancer/nonhodgkins lymphoma/Ovarian - Asthma Mother - Hyperlipidemia Mother - other (depressive disorder) Mother - Heart Father - Hyperlipidemia Father - Hypertension Father - other (cornary artery disease) Father heart attack and stents put in - Osteoporosis Maternal Grandmother - Coronary Artery Disease Paternal Grandmother - Diabetes Paternal Grandmother - Coronary Artery Disease Paternal Grandfather - Breast Cancer Other maternal great grandmother - other (alcoholism) Brother - other (depressive disorder) Brother - Heart Brother - Hyperlipidemia Brother - Hypertension Brother Social History Substance Use Topics - Smoking status: Never Smoker - Smokeless tobacco: Never Used - Alcohol use No Review of Systems Constitutional: Positive for malaise/fatigue. Negative for chills, diaphoresis, fever and weight loss. Appetite not great. HENT: Negative for congestion, ear discharge, ear pain and sore throat. Mouth and nose feel dry Eyes: Negative for blurred vision, double vision, photophobia, pain, discharge and redness. Respiratory: Negative for cough, shortness of breath and wheezing. Cardiovascular: Negative for chest pain, palpitations and leg swelling. Occasional heart racing at night. Gastrointestinal: Negative for abdominal pain, blood in stool, constipation, diarrhea, heartburn, nausea and vomiting. Occasional diarrhea or constipation, relates to IBS. Genitourinary: Negative for dysuria, frequency, hematuria and urgency. Occasionally feels need to push to get urine out. History of bladder sling. Musculoskeletal: Positive for joint pain. Knees have been okay Left hip occasional soreness Skin: Negative for itching and rash. Neurological: Positive for headaches. Negative for dizziness, tingling, tremors, sensory change, speech change, focal weakness, loss of consciousness and weakness. Psychiatric/Behavioral: Negative for depression. The patient is not nervous/anxious. BP 120/80 Pulse 64 Temp 37.1 ?C (98.8 ?F) Resp 16 Ht 165.1 cm (5' 5) Wt 104 kg (229 lb 3.2 oz) BMI 38.14 kg/m? Objective Physical Exam Constitutional: She is oriented to person, place, and time and well-developed, well-nourished, and in no distress. HENT: Head: Normocephalic and atraumatic. Right Ear: Hearing, tympanic membrane, external ear and ear canal normal. Left Ear: Hearing, tympanic membrane, external ear and ear canal normal. Nose: Nose normal. Mouth/Throat: Oropharynx is clear and moist and mucous membranes are normal. Eyes: Pupils are equal, round, and reactive to light. Conjunctivae, EOM and lids are normal. Neck: Trachea normal and normal range of motion. Neck supple. Normal carotid pulses and no JVD present. Carotid bruit is not present. Cardiovascular: Normal rate, regular rhythm, normal heart sounds and intact distal pulses. No murmur heard. Pulses: Carotid pulses are 2+ on the right side, and 2+ on the left side. Radial pulses are 2+ on the right side, and 2+ on the left side. Dorsalis pedis pulses are 2+ on the right side, and 2+ on the left side. Pulmonary/Chest: Effort normal and breath sounds normal. She has no wheezes. She has no rhonchi. She has no rales. Abdominal: Soft. Normal appearance and bowel sounds are normal. There is no tenderness. Musculoskeletal: Normal range of motion. She exhibits no edema. Lymphadenopathy: Head (right side): Tonsillar, preauricular and occipital adenopathy present. No submental, no submandibular and no posterior auricular adenopathy present. Head (left side): Tonsillar, preauricular and occipital adenopathy present. No submental, no submandibular and no posterior auricular adenopathy present. She has cervical adenopathy. She has no axillary adenopathy. Right: Inguinal adenopathy present. No supraclavicular and no epitrochlear adenopathy present. Left: Epitrochlear (Very small firm mobile nodule) adenopathy present. No inguinal and no supraclavicular adenopathy present. Neurological: She is alert and oriented to person, place, and time. She has normal motor skills. She displays no weakness. No cranial nerve deficit. Gait normal. Skin: Skin is warm and dry. No rash noted. She is not diaphoretic. Palpated a few very small firm nodules over bilateral anterior lower ribs. Psychiatric: Mood, memory, affect and judgment normal. Component Latest Ref Rng AND Units 03/10/2018 WBC 4.8 - 10.8 thou/cmm 7.8 RBC 4.20 - 5.40 mil/cmm 4.97 HGB 12.0 - 16.0 g/dL 14.0 Hematocrit 37.0 - 47.0 % 42.8 MCV 81.0 - 99.0 fl 86.1 MCH 27.0 - 31.0 pg 28.2 MCHC 32.0 - 36.0 % 32.7 RDW 11.5 - 15.9 % 13.4 Platelet Count 150 - 400 thou/cmm 249 MPV 7.1 - 10.5 fl 10.6 (H) Seg Neutrophil % 72.1 Lymphocyte % 19.8 Monocyte % 4.6 Eosinophil % 2.9 Basophil % 0.6 Abs. Neut(Anc) 3.00 - 5.67 thou/cmm 5.62 Abs. Lymph 1.50 - 3.65 thou/cmm 1.54 Abs. Hitchcock 0.20 - 1.00 thou/cmm 0.36 Abs. Eosin 0.00 - 0.41 thou/cmm 0.23 Abs. Baso 0.00 - 0.08 thou/cmm 0.05 Sodium 136 - 145 mEq/L 137 Potassium 3.5 - 5.1 mEq/L 4.3 Chloride 98 - 107 mEq/L 104 CO2 21 - 32 mEq/L 26 Glucose 70 - 99 mg/dL 135 (H) BUN 7 - 25 mg/dL 8 Creatinine 0.51 - 0.95 mg/dL 0.69 Calcium 8.5 - 10.1 mg/dL 9.7 Albumin 3.4 - 5.0 g/dL 4.4 Protein, Total 6.4 - 8.2 g/dL 8.0 AST 15 - 37 U/L 56 (H) ALT 14 - 63 U/L 53 Alkaline Phosphatase 46 - 116 U/L 96 Bilirubin, Total 0.2 - 1.0 mg/dL 0.7 Anion Gap 8 - 20 12 BUN/CREATININE RATIO 10 - 20 12 Iron 50 - 170 ug/dL 71 TIBC 250 - 450 ug/dL 341 Iron % Saturation 20 - 55 % 21 Ferritin 8.00 - 252.00 ng/mL 77.00 Folate 3.10 - 17.50 ng/mL 44.00 (H) Vitamin B12 193 - 986 pg/mL 512 eGFR >60mL/min/1.73m2 >60 TSH 0.34 - 4.82 uIU/mL 0.70 Component Latest Ref Rng AND Units 03/19/2018 Cholesterol, Total 0 - 199 mg/dL 127 Triglyceride 0 - 149 mg/dL 184 (H) HDL Cholesterol >40 mg/dL 34 LDL Cholesterol 0 - 150 mg/dL 56 CHOL/HDL 1.8 - 5.3 3.7 Risk Factor 3.7 Component Latest Ref Rng AND Units 03/19/2018 Hep B Surface Ag Negative Negative Hepatitis C Antibody Negative Negative Hb Core Ab IgM Negative Negative HAV Ab IgM Negative Negative Component Latest Ref Rng AND Units 08/18/2016 02/22/2017 10/28/2017 03/10/2018 Hemoglobin A1C 4.5 - 6.2 % 6.9 (H) 7.5 (H) 6.3 (H) 6.4 (H) Estimated Average Glucose mg/dl 151 169 134 137 ASSESSMENT/PLAN: 1. Type 2 diabetes mellitus without complication, without long-term current use of insulin (HCC) - ICD9: 250.00, ICD10: E11.9 (primary diagnosis) Controlled. - Continue current medications = Januvia 100 mg daily and metformin 1,000 mg BID - Blood glucose monitoring on a twice a day schedule - Encouraged regular aerobic exercise and weight loss - Follow up in August for diabetes visit. sooner should any other issues arise. - BP goal of <130/80 - LDL goal of <100 2. Essential hypertension - ICD9: 401.9, ICD10: I10 On Coreg Continue f/u with cardiology 3. Atherosclerosis of [place] coronary artery without angina pectoris, unspecified whether [place] or transplanted heart - ICD9: 414.01, ICD10: I25.10 On Coreg, Plavix, asa, atorvastatin Continue f/u with cardiology 4. Hyperlipidemia, unspecified hyperlipidemia type - ICD9: 272.4, ICD10: E78.5 LDL at goal Continue atorvastatin Continue care with data reduction technician 5. TONIO (obstructive sleep apnea) - ICD9: 327.23, ICD10: G47.33 Ordered split study to reevaluate - POLYSOMNOGRAM SPLIT 6. Gastroesophageal reflux disease, esophagitis presence not specified - ICD9: 530.81, ICD10: K21.9 - Discussed lifestyle modifications including losing weight, limiting caffeine, no meals three hours before sleep and head of bed elevation - Continue treatment with pantoprazole and famotidine - symptoms severe - Has been referred to Heartburn clinic in the past but never went. Has appt with Dr. Castaneda for liver, perhaps patient could have GERD evaluated in the future as well 7. Obesity, Class II, BMI 35-39.9 E66.9 - ICD9: 278.00, ICD10: E66.9 Counseled patient on nutrition and exercise. 8. Iron deficiency anemia, unspecified iron deficiency anemia type - ICD9: 280.9, ICD10: D50.9 Stable on ferrous sulfate 325 daily 9. Postoperative hypothyroidism - ICD9: 244.0, ICD10: E89.0 - Instructed patient on importance of taking on an empty stomach either first thing in the morning or at bedtime. - continue current dose of Synthroid 175 mcg daily 10. Restless legs syndrome (RLS) - ICD9: 333.94, ICD10: G25.81 Stable on Gabapentin 200 mg at bedtime. 11. Lymphadenopathy, generalized - ICD9: 785.6, ICD10: R59.1 08/07/16 - Biopsy of right neck mass, Dr. Hi CCAG, benign reactive lymph node. 03/01/18 CT abd/pelvis - a few borderline mildly enlarged periaortic retroperitoneal, inguinal lymph nodes 03/17/18 US head/neck - Lymph nodes bilateral neck and left occipital region, appeared normal She is going to be evaluated by rheumatology in June. We discussed that she may need to return to Dr. Hi for evaluation as well. She would like to see schedule announcer first. Due for Pap and mammogram - patient to schedule at earliest convenience. Lester Lopez APRN.HECTOR CNOV Observed: 05/21/2018 Status: COMPLETED Source: [place] 3:40 PM [facility] REPOSITORY Office Visit (CHARLINE) MAHI TAN ([id number]) 1975 F Date Time Provider Department 05/21/18 3:40 PM LESTER LOPEZ (HECTOR) CHARLINE During your visit today, we recorded the following information about you: Temperature Pulse Respiration Blood pressure 98.8 degrees 64/minute 16/minute 120/80 Weight Height 104 kg 1.651 m Lester Lopez APRN.CNP 05/21/2018 5:46 PM Signed Subjective HPI Here today for diabetes follow-up visit. Patient has type 2 diabetes. Denies dizziness, chest pain, shortness of breath, changes in vision, fatigue, foot pain. Denies numbness and tingling in extremities. Denies polydipsia, polyphagia, polyuria. Home Blood Sugars: 100 - 130 Medication Compliance: She is compliant with medications. On Januvia 100 mg daily and metformin 1,000 mg BID Low Blood Sugars: No Diet: Fairly healthy Exercise: Walking Eye Exam: Due next month Podiatry: No recent visits Tobacco use - Never a smoker Alcohol use - None Within the last 6 months has been getting swollen lymph nodes on and off. Feels very fatigued and gets migraines when they swell. She has palpated them to her neck, back of head, abdominal wall, groin. They feel sore at times. Went to ER in February for abdominal pain and CT showed mildly enlarged inguinal lymph nodes and hepatosplenomegaly. Saw MANJINDER Borjas here in our office for f/u visit. Abdominal US completed and confirmed enlarged liver and spleen. US of neck and occipital region completed showing some enlarged lymph nodes but they appeared reactive. Labs were done - unremarkable. Her mother had NonHodgkins Lymphoma Patient with history of lymph node biopsy - normal. About 1 year ago. She was referred to rheumatology and has appointment with Dr. English in June. She was referred to GI for enlarged liver and has appointment with Dr. Castaneda in July. Other symptoms she is concerned about: Inside of cheeks - skin sloughing off, white thin layer Sores on inside of nose Cuticles swell up and painful, drains yellow. Had IANDD in ER a couple of times. Occasional overheating and redness of cheeks. Sprained right ankle March 26. Still swells up. Went to ER - x-ray was normal. She is able to bear weight no difficulty. Overall pain has improved greatly. Just mild soreness intermittently. She follows with data reduction technician, Dr. Samano once a year for CAD, cardiac stents, HTN. History of sleep apnea. Never scheduled her split study and would like to get done. Wants to try CPAP again. RLS - stable on gabapentin PAST MEDICAL HISTORY Diagnosis Date - Allergic rhinitis - Anxiety - Asthma no issues for several years - Bipolar 2 disorder (HCC) 11/21/2011 - CAD (coronary artery disease) - Calculus of gallbladder without mention of cholecystitis or obstruction 08/24/2009 - Cervical high risk human papillomavirus (HPV) DNA test positive - Common cold - Depression, major - Depressive disorder Dr. [facility] - Diabetes ([facility]) - Diarrhea - Double vessel coronary artery disease 2 stents - Excessive or frequent menstruation Heavy periods Resolved - Female stress incontinence 01/13/2008 - Ganglion of joint 10/14/2007 - GERD (gastroesophageal reflux disease) - Hand joint pain - Hand pain - Hemorrhage of gastrointestinal tract, unspecified - History of intrauterine contraceptive device Mirena placed May 2015 Dr. Willy Schmid - Hyperlipidemia - Hypertension - Internal hemorrhoids without mention of complication - Irregular menstrual cycle Irregular periods Resolved - Irritable bowel syndrome Irritable bowel - Itching - Obesity - Obstructive sleep apnea - Onychomycosis - Other specified acquired hypothyroidism - Ovarian cystic mass 06/07/2010 - Panic attack 07/18/2010 - Papanicolaou smear of cervix with atypical squamous cells of undetermined significance (ASC-US) - Paresthesia of hand - PLANTAR Fasciitis 07/15/2007 - PMH - PAST MEDICAL HISTORY OF restless leg syndrome - PTSD (post-traumatic stress disorder) - Status post left heart catheterization 10/2014 PAST SURGICAL HISTORY Procedure Laterality Date - ANGIOPLASTY 11/23/14 [facility]-proximal LAD and proximal RCA 2 stents - CARDIAC CATHETERIZATION HX 11/20/14 [facility]-proximal RCA lesion - COLONOSCOP W/ OR W/O [facility] SPEC 06/09/14 Colonoscopy - COLONOSCOPY W/BX 08/13/07 - COLPOSCOPY (VAGINOSCOPY) 2006 Colposcopy - EXCIS PRIMARY GANGLION WRIST 11/04/07 LEFT WRIST, Dr. Alcantara - LAP CHOLECYSTECT/CHOLANGIOGRAPHY 09/05/2009 Normal IOC - LIGATE [facility]ALLOPIAN TUBE 10[facility] HIST[facility] OF Left 01/28/15 middle trigger finger release - S SLING DANIELLE HARVEY TOTL 8095 2013 monarc - THYROIDECTOMY 01/1994 goiter no cancer ALLERGIES Benedryl [Diphenhydramine]; Doxycycline; Imitrex [Sumatriptan Succinate]; Phenergan [Promethazine Hcl]; Tramadol MEDICATIONS gabapentin (NEURONTIN) 100 mg capsule TAKE 2 CAPSULES AT BEDTIME pantoprazole DR (PROTONIX) 40 mg tablet Take 1 tablet by mouth once daily. famotidine (PEPCID) 20 mg tablet Take 1 tablet by mouth daily at bedtime. JANUVIA 100 mg tablet TAKE 1 TABLET EVERY DAY levothyroxine (SYNTHROID) 175 mcg tablet Take 1 tablet by mouth once daily. Blood-Glucose Meter misc 1 Units once daily. Lancets lancets Use as instructed. Preferred insurance brand. blood sugar diagnostic (ONETOUCH ULTRA TEST) test strip Use as instructed. Insurance preferred brand. metFORMIN (GLUCOPHAGE) 1,000 mg tablet TAKE 1 TABLET TWICE DAILY WITH meals fluticasone (FLONASE) 50 mcg/actuation nasal spray Use 1 Harcourt in each nostril once daily. aspirin 81 mg chewable tablet Take 81 mg by mouth. carvedilol (COREG) 12.5 mg tablet Take 1 tablet by mouth twice daily. ferrous sulfate (IRON) 325 mg (65 mg iron) tablet Take 1 tablet by mouth daily with breakfast. albuterol HFA (VENTOLIN HFA) 90 mcg/actuation inhaler Inhale 2 Puffs as instructed every 4 hours as needed for Wheezing/Shortness of Breath. atorvastatin (LIPITOR) 20 mg tablet Take 1 tablet by mouth once daily. clopidogrel (PLAVIX) 75 mg tablet Take 1 tablet by mouth once daily. Cholecalciferol, Vitamin D3, 1,000 unit cap Take 1 capsule by mouth once daily. levonorgestrel (MIRENA) 20 mcg/24 hr (5 years) IUD 1 Each by INTRAUTERINE route continuous. blood sugar diagnostic (BLOOD GLUCOSE TEST) test strip Test blood sugar(s) one times daily. Dx: 250.00. Insulin: No Lancets lancets Test blood sugar(s) one times daily. Dx: 250.00. Insulin: No cyclobenzaprine (FLEXERIL) 10 mg tablet Take 10 mg by mouth twice daily as needed. FAMILY HISTORY Problem Relation Age of Onset - Cancer Mother /lung cancer/nonhodgkins lymphoma/Ovarian - Asthma Mother - Hyperlipidemia Mother - other (depressive disorder) Mother - Heart Father - Hyperlipidemia Father - Hypertension Father - other (cornary artery disease) Father heart attack and stents put in - Osteoporosis Maternal Grandmother - Coronary Artery Disease Paternal Grandmother - Diabetes Paternal Grandmother - Coronary Artery Disease Paternal Grandfather - Breast Cancer Other maternal great grandmother - other (alcoholism) Brother - other (depressive disorder) Brother - Heart Brother - Hyperlipidemia Brother - Hypertension Brother Social History Substance Use Topics - Smoking status: Never Smoker - Smokeless tobacco: Never Used - Alcohol use No Review of Systems Constitutional: Positive for malaise/fatigue. Negative for chills, diaphoresis, fever and weight loss. Appetite not great. HENT: Negative for congestion, ear discharge, ear pain and sore throat. Mouth and nose feel dry Eyes: Negative for blurred vision, double vision, photophobia, pain, discharge and redness. Respiratory: Negative for cough, shortness of breath and wheezing. Cardiovascular: Negative for chest pain, palpitations and leg swelling. Occasional heart racing at night. Gastrointestinal: Negative for abdominal pain, blood in stool, constipation, diarrhea, heartburn, nausea and vomiting. Occasional diarrhea or constipation, relates to IBS. Genitourinary: Negative for dysuria, frequency, hematuria and urgency. Occasionally feels need to push to get urine out. History of bladder sling. Musculoskeletal: Positive for joint pain. Knees have been okay Left hip occasional soreness Skin: Negative for itching and rash. Neurological: Positive for headaches. Negative for dizziness, tingling, tremors, sensory change, speech change, focal weakness, loss of consciousness and weakness. Psychiatric/Behavioral: Negative for depression. The patient is not nervous/anxious. BP 120/80 Pulse 64 Temp 37.1 ?C (98.8 ?F) Resp 16 Ht 165.1 cm (5' 5) Wt 104 kg (229 lb 3.2 oz) BMI 38.14 kg/m? Objective Physical Exam Constitutional: She is oriented to person, place, and time and well-developed, well-nourished, and in no distress. HENT: Head: Normocephalic and atraumatic. Right Ear: Hearing, tympanic membrane, external ear and ear canal normal. Left Ear: Hearing, tympanic membrane, external ear and ear canal normal. Nose: Nose normal. Mouth/Throat: Oropharynx is clear and moist and mucous membranes are normal. Eyes: Pupils are equal, round, and reactive to light. Conjunctivae, EOM and lids are normal. Neck: Trachea normal and normal range of motion. Neck supple. Normal carotid pulses and no JVD present. Carotid bruit is not present. Cardiovascular: Normal rate, regular rhythm, normal heart sounds and intact distal pulses. No murmur heard. Pulses: Carotid pulses are 2+ on the right side, and 2+ on the left side. Radial pulses are 2+ on the right side, and 2+ on the left side. Dorsalis pedis pulses are 2+ on the right side, and 2+ on the left side. Pulmonary/Chest: Effort normal and breath sounds normal. She has no wheezes. She has no rhonchi. She has no rales. Abdominal: Soft. Normal appearance and bowel sounds are normal. There is no tenderness. Musculoskeletal: Normal range of motion. She exhibits no edema. Lymphadenopathy: Head (right side): Tonsillar, preauricular and occipital adenopathy present. No submental, no submandibular and no posterior auricular adenopathy present. Head (left side): Tonsillar, preauricular and occipital adenopathy present. No submental, no submandibular and no posterior auricular adenopathy present. She has cervical adenopathy. She has no axillary adenopathy. Right: Inguinal adenopathy present. No supraclavicular and no epitrochlear adenopathy present. Left: Epitrochlear (Very small firm mobile nodule) adenopathy present. No inguinal and no supraclavicular adenopathy present. Neurological: She is alert and oriented to person, place, and time. She has normal motor skills. She displays no weakness. No cranial nerve deficit. Gait normal. Skin: Skin is warm and dry. No rash noted. She is not diaphoretic. Palpated a few very small firm nodules over bilateral anterior lower ribs. Psychiatric: Mood, memory, affect and judgment normal. Component Latest Ref Rng AND Units 03/10/2018 WBC 4.8 - 10.8 thou/cmm 7.8 RBC 4.20 - 5.40 mil/cmm 4.97 HGB 12.0 - 16.0 g/dL 14.0 Hematocrit 37.0 - 47.0 % 42.8 MCV 81.0 - 99.0 fl 86.1 MCH 27.0 - 31.0 pg 28.2 MCHC 32.0 - 36.0 % 32.7 RDW 11.5 - 15.9 % 13.4 Platelet Count 150 - 400 thou/cmm 249 MPV 7.1 - 10.5 fl 10.6 (H) Seg Neutrophil % 72.1 Lymphocyte % 19.8 Monocyte % 4.6 Eosinophil % 2.9 Basophil % 0.6 Abs. Neut(Anc) 3.00 - 5.67 thou/cmm 5.62 Abs. Lymph 1.50 - 3.65 thou/cmm 1.54 Abs. Hitchcock 0.20 - 1.00 thou/cmm 0.36 Abs. Eosin 0.00 - 0.41 thou/cmm 0.23 Abs. Baso 0.00 - 0.08 thou/cmm 0.05 Sodium 136 - 145 mEq/L 137 Potassium 3.5 - 5.1 mEq/L 4.3 Chloride 98 - 107 mEq/L 104 CO2 21 - 32 mEq/L 26 Glucose 70 - 99 mg/dL 135 (H) BUN 7 - 25 mg/dL 8 Creatinine 0.51 - 0.95 mg/dL 0.69 Calcium 8.5 - 10.1 mg/dL 9.7 Albumin 3.4 - 5.0 g/dL 4.4 Protein, Total 6.4 - 8.2 g/dL 8.0 AST 15 - 37 U/L 56 (H) ALT 14 - 63 U/L 53 Alkaline Phosphatase 46 - 116 U/L 96 Bilirubin, Total 0.2 - 1.0 mg/dL 0.7 Anion Gap 8 - 20 12 BUN/CREATININE RATIO 10 - 20 12 Iron 50 - 170 ug/dL 71 TIBC 250 - 450 ug/dL 341 Iron % Saturation 20 - 55 % 21 Ferritin 8.00 - 252.00 ng/mL 77.00 Folate 3.10 - 17.50 ng/mL 44.00 (H) Vitamin B12 193 - 986 pg/mL 512 eGFR >60mL/min/1.73m2 >60 TSH 0.34 - 4.82 uIU/mL 0.70 Component Latest Ref Rng AND Units 03/19/2018 Cholesterol, Total 0 - 199 mg/dL 127 Triglyceride 0 - 149 mg/dL 184 (H) HDL Cholesterol >40 mg/dL 34 LDL Cholesterol 0 - 150 mg/dL 56 CHOL/HDL 1.8 - 5.3 3.7 Risk Factor 3.7 Component Latest Ref Rng AND Units 03/19/2018 Hep B Surface Ag Negative Negative Hepatitis C Antibody Negative Negative Hb Core Ab IgM Negative Negative HAV Ab IgM Negative Negative Component Latest Ref Rng AND Units 08/18/2016 02/22/2017 10/28/2017 03/10/2018 Hemoglobin A1C 4.5 - 6.2 % 6.9 (H) 7.5 (H) 6.3 (H) 6.4 (H) Estimated Average Glucose mg/dl 151 169 134 137 ASSESSMENT/PLAN: 1. Type 2 diabetes mellitus without complication, without long-term current use of insulin (HCC) - ICD9: 250.00, ICD10: E11.9 (primary diagnosis) Controlled. - Continue current medications = Januvia 100 mg daily and metformin 1,000 mg BID - Blood glucose monitoring on a twice a day schedule - Encouraged regular aerobic exercise and weight loss - Follow up in August for diabetes visit. sooner should any other issues arise. - BP goal of <130/80 - LDL goal of <100 2. Essential hypertension - ICD9: 401.9, ICD10: I10 On Coreg Continue f/u with cardiology 3. Atherosclerosis of [place] coronary artery without angina pectoris, unspecified whether [place] or transplanted heart - ICD9: 414.01, ICD10: I25.10 On Coreg, Plavix, asa, atorvastatin Continue f/u with cardiology 4. Hyperlipidemia, unspecified hyperlipidemia type - ICD9: 272.4, ICD10: E78.5 LDL at goal Continue atorvastatin Continue care with data reduction technician 5. TONIO (obstructive sleep apnea) - ICD9: 327.23, ICD10: G47.33 Ordered split study to reevaluate - POLYSOMNOGRAM SPLIT 6. Gastroesophageal reflux disease, esophagitis presence not specified - ICD9: 530.81, ICD10: K21.9 - Discussed lifestyle modifications including losing weight, limiting caffeine, no meals three hours before sleep and head of bed elevation - Continue treatment with pantoprazole and famotidine - symptoms severe - Has been referred to Heartburn clinic in the past but never went. Has appt with Dr. Castaneda for liver, perhaps patient could have GERD evaluated in the future as well 7. Obesity, Class II, BMI 35-39.9 E66.9 - ICD9: 278.00, ICD10: E66.9 Counseled patient on nutrition and exercise. 8. Iron deficiency anemia, unspecified iron deficiency anemia type - ICD9: 280.9, ICD10: D50.9 Stable on ferrous sulfate 325 daily 9. Postoperative hypothyroidism - ICD9: 244.0, ICD10: E89.0 - Instructed patient on importance of taking on an empty stomach either first thing in the morning or at bedtime. - continue current dose of Synthroid 175 mcg daily 10. Restless legs syndrome (RLS) - ICD9: 333.94, ICD10: G25.81 Stable on Gabapentin 200 mg at bedtime. 11. Lymphadenopathy, generalized - ICD9: 785.6, ICD10: R59.1 08/07/16 - Biopsy of right neck mass, Dr. Hi CCAG, benign reactive lymph node. 03/01/18 CT abd/pelvis - a few borderline mildly enlarged periaortic retroperitoneal, inguinal lymph nodes 03/17/18 US head/neck - Lymph nodes bilateral neck and left occipital region, appeared normal She is going to be evaluated by rheumatology in June. We discussed that she may need to return to Dr. Hi for evaluation as well. She would like to see schedule announcer first. Due for Pap and mammogram - patient to schedule at earliest convenience. Lester Lopez, TITO.HECTOR Mcginnis CMA 05/21/2018 3:53 PM Signed Pt here for DM f/u. Up to date on everything except her eye exam. She has appnt for eye exam 05/27/18 and will have record sent here. Gabo Mcginnis CMA Referring Provider: SELF [[id number]] Allergies As of Date: 05/21/2018 Noted Allergy Reaction BENEDRYL (DIPHENHYDRAMINE) 07/01/2009 Comments: Makes her feel jittery DOXYCYCLINE 08/13/2006 11 - Vomiting IMITREX (SUMATRIPTAN SUCCINATE) 12/06/2009 Comments: chest pain PHENERGAN (PROMETHAZINE HCL) 06/14/2010 5 - Intolerance Comments: restless legs TRAMADOL 07/05/2017 5 - Intolerance Date Reviewed: 05/21/2018 Reviewed by: Lester Lopez - Fully Assessed Reason for Visit: Diabetes [34] Primary Visit Diagnosis:Type 2 diabetes mellitus without complication, without long-term current use of insulin (HCC) [E11.9] Other Visit Diagnoses:Essential hypertension [I10] Atherosclerosis of [place] coronary artery without angina pectoris, unspecified whether [place] or transplanted heart [I25.10] Hyperlipidemia, unspecified hyperlipidemia type [E78.5] TONIO (obstructive sleep apnea) [G47.33] Gastroesophageal reflux disease, esophagitis presence not specified [K21.9] Obesity, Class II, BMI 35-39.9 E66.9 [E66.9] Iron deficiency anemia, unspecified iron deficiency anemia type [D50.9] Postoperative hypothyroidism [E89.0] Restless legs syndrome (RLS) [G25.81] Lymphadenopathy, generalized [R59.1] Order(s):POLYSOMNOGRAM SPLIT [[id number]] Order #: [id number] Prescriptions as of 05/21/2018 Sig: GABAPENTIN 100 MG CAPSULE TAKE 2 CAPSULES AT BEDTIME PANTOPRAZOLE 40 MG TABLET,DEL* Take 1 tablet by mouth once d* FAMOTIDINE 20 MG TABLET Take 1 tablet by mouth daily * JANUVIA 100 MG TABLET TAKE 1 TABLET EVERY DAY LEVOTHYROXINE 175 MCG TABLET Take 1 tablet by mouth once d* BLOOD-GLUCOSE METER 1 Units once daily. LANCETS Use as instructed. Preferred * BLOOD SUGAR DIAGNOSTIC STRIPS Use as instructed. Insurance * METFORMIN 1,000 MG TABLET TAKE 1 TABLET TWICE DAILY WIT* FLUTICASONE 50 MCG/ACTUATION * Use 1 Harcourt in each nostril o* ASPIRIN 81 MG CHEWABLE TABLET Take 81 mg by mouth. CARVEDILOL 12.5 MG TABLET Take 1 tablet by mouth twice * FERROUS SULFATE 325 MG (65 MG* Take 1 tablet by mouth daily * ALBUTEROL SULFATE HFA 90 MCG/* Inhale 2 Puffs as instructed * ATORVASTATIN 20 MG TABLET Take 1 tablet by mouth once d* CLOPIDOGREL 75 MG TABLET Take 1 tablet by mouth once d* CHOLECALCIFEROL (VITAMIN D3) * Take 1 capsule by mouth once * LEVONORGESTREL 20 MCG/24 HR (* 1 Each by INTRAUTERINE route * BLOOD SUGAR DIAGNOSTIC STRIPS Test blood sugar(s) one times* LANCETS Test blood sugar(s) one times* CYCLOBENZAPRINE 10 MG TABLET Take 10 mg by mouth twice babar* Problem List As Of Date 05/21/2018 Noted Resolved Chest pain, unspecified [R07.9] INVALID FOR*11/21/2011 Essential hypertension, benign [I10] INVALID FOR*11/21/2011 Shortness of breath [R06.02] INVALID FOR*11/21/2011 Restless legs syndrome (RLS) [G25.81] INVALID FOR* Insomnia [G47.00] INVALID FOR* PLANTAR Fasciitis [M72.2] INVALID FOR*11/21/2011 Diarrhea [R19.7] INVALID FOR*09/29/2014 Hemorrhage of gastrointestinal tract [K92.2] INVALID FOR* Internal hemorrhoids without mention of complic*INVALID FOR*11/21/2011 Ganglion of joint [M67.40] INVALID FOR*11/21/2011 Irritable bowel syndrome [K58.9] INVALID FOR* PAP SMEAR OF CERVIX W ASCUS [R87.610] INVALID FOR* Cervical high risk human papillomavirus (HPV) D*INVALID FOR* Female stress incontinence [N39.3] INVALID FOR* Pain in limb [M79.609] INVALID FOR*11/21/2011 Calcaneal spur [M77.30] INVALID FOR*11/21/2011 Depressive disorder, not elsewhere classified [*INVALID FOR*11/21/2011 Microscopic hematuria [R31.29] INVALID FOR*11/21/2011 Pain in joint, pelvic region and thigh [M25.559]INVALID FOR*11/21/2011 Cholelithiasis NOS [K80.20] INVALID FOR*11/21/2011 Hypothyroid [E03.9] INVALID FOR* Ovarian cystic mass [N83.209] INVALID FOR*11/21/2011 Depression, major [F32.9] 11/21/2011 Panic attack [F41.0] INVALID FOR*11/21/2011 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] INVALID FOR* Backache, unspecified [M54.9] INVALID FOR*09/29/2014 Cervicalgia [M54.2] INVALID FOR*09/29/2014 Bipolar 2 disorder (HCC) [F31.81] INVALID FOR* Dysuria [R30.0] INVALID FOR*09/29/2014 Hematuria [R31.9] INVALID FOR* Urinary tract infection [N39.0] INVALID FOR*09/29/2014 Urgency of urination [R39.15] INVALID FOR*09/29/2014 Frequency of urination [R35.0] INVALID FOR*09/29/2014 Low back pain [M54.5] INVALID FOR* Family history of ovarian cancer [Z80.41] INVALID FOR* LADONNA (stress urinary incontinence, female) [N39.*INVALID FOR* Cystocele [LXT5957] INVALID FOR* Type 2 diabetes mellitus without complication (*INVALID FOR* Trigger middle finger of left hand [M65.332] INVALID FOR* Coronary atherosclerosis [I25.10] INVALID FOR* More... Essential hypertension [I10] INVALID FOR* Morbid obesity with BMI of 40.0-44.9, adult (HC*INVALID FOR* GERD (gastroesophageal reflux disease) [K21.9] INVALID FOR* TONIO (obstructive sleep apnea) [G47.33] INVALID FOR* More... Iron deficiency concern [E61.1] INVALID FOR* Presence of drug coated stent in LAD coronary a*INVALID FOR* Family history of ischemic heart disease [Z82.4*INVALID FOR* Presence of drug coated stent in right coronary*INVALID FOR* Vitamin D insufficiency [E55.9] INVALID FOR* Sprain of lumbar region-BWC [S33.5XXA] INVALID FOR* Anterior cervical lymphadenopathy [R59.0] INVALID FOR* More... Axillary lymphadenopathy [R59.0] INVALID FOR*08/14/2016 More... Onychomycosis [B35.1] INVALID FOR* Mild intermittent asthma without complication [*INVALID FOR* Prolonged QT interval [R94.31] INVALID FOR* Chronic pain of left knee [M25.562, G89.29] INVALID FOR* Iron deficiency anemia [D50.9] INVALID FOR* Gastroesophageal reflux disease [K21.9] INVALID FOR* Family history of coronary artery disease [Z82.*INVALID FOR* Hyperlipidemia [E78.5] INVALID FOR* Obesity, Class II, BMI 35-39.9 E66.9 [E66.9] INVALID FOR* Asthma [J45.909] INVALID FOR* History of cholecystectomy [Z90.49] INVALID FOR* History of thyroidectomy [E89.0] INVALID FOR* alf (current) use of antithrombotics/anti*INVALID FOR* alf (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 [Z79.82] INVALID FOR* alf (current) use of oral hypoglycemic dr*INVALID FOR* Sprain of ankle [S93.409A] INVALID FOR* Lymphadenopathy, generalized [R59.1] INVALID FOR* Visit Notes: >> Gabo ([employer]) [place] SatMay 21, 2018 3:52 PM Status: Signed Pt here for DM f/u. Up to date on everything except her eye exam. She has appnt for eye exam 05/27/18 and will have record sent here. Gabo Mcginnis CMA Disposition: Return if symptoms worsen or fail to improve, for well woman with pap at earliest convenience, dm visit in August. Follow-up and Disposition History Recorded Encounter Status:Closed by LESTER LOPEZ CNP on 05/21/18 OBSOLETE Observed: 05/12/2018 Status: COMPLETED Source: [place] 12:00 AM [facility] REPOSITORY Refill (AGFAMPLE) MAHI TAN ([id number]) 1975 F Date Time Provider Department 05/12/18 LESTER LOPEZ ([facility]) AGFAMPLE During your visit today, we recorded the following information about you: Gabo Mcginnis CMA 05/12/2018 11:25 AM Signed Last rx 05/07/18. Pt is on med sync at [facility] and it states they will put on hold for next refill. Pt has OV 05/21/18 Pharmacy electronically requests the following refill(s) Pending Prescriptions Disp Refills GABAPENTIN 100 MG CAPSULE 60 capsule Sig: TAKE 2 CAPSULES AT BEDTIME ESPINOZA: Yes Gabo Mcginnis CMA Allergies As of Date: 05/12/2018 Noted Allergy Reaction BENEDRYL (DIPHENHYDRAMINE) 07/01/2009 Comments: Makes her feel jittery DOXYCYCLINE 08/13/2006 11 - Vomiting IMITREX (SUMATRIPTAN SUCCINATE) 12/06/2009 Comments: chest pain PHENERGAN (PROMETHAZINE HCL) 06/14/2010 5 - Intolerance Comments: restless legs TRAMADOL 07/05/2017 5 - Intolerance Date Reviewed: 03/10/2018 Reviewed by: Suad Castorena (Er Medical Technician-C) Cristela - Fully Assessed Reason for Visit: Refill Request [94] Visit Diagnosis:Restless leg syndrome [G25.81] Order(s):gabapentin (NEURONTIN) 100 mg capsuleTAKE 2 CAPSULES AT BEDTIMEDisp: 60 capsuleRfl: 0 Prescriptions as of 05/12/2018 Sig: GABAPENTIN 100 MG CAPSULE TAKE 2 CAPSULES AT BEDTIME PANTOPRAZOLE 40 MG TABLET,DEL* Take 1 tablet by mouth once d* FAMOTIDINE 20 MG TABLET Take 1 tablet by mouth daily * JANUVIA 100 MG TABLET TAKE 1 TABLET EVERY DAY LEVOTHYROXINE 175 MCG TABLET Take 1 tablet by mouth once d* BLOOD-GLUCOSE METER 1 Units once daily. LANCETS Use as instructed. Preferred * BLOOD SUGAR DIAGNOSTIC STRIPS Use as instructed. Insurance * METFORMIN 1,000 MG TABLET TAKE 1 TABLET TWICE DAILY WIT* FLUTICASONE 50 MCG/ACTUATION * Use 1 Harcourt in each nostril o* ASPIRIN 81 MG CHEWABLE TABLET Take 81 mg by mouth. CARVEDILOL 12.5 MG TABLET Take 1 tablet by mouth twice * FERROUS SULFATE 325 MG (65 MG* Take 1 tablet by mouth daily * ALBUTEROL SULFATE HFA 90 MCG/* Inhale 2 Puffs as instructed * ATORVASTATIN 20 MG TABLET Take 1 tablet by mouth once d* CLOPIDOGREL 75 MG TABLET Take 1 tablet by mouth once d* CHOLECALCIFEROL (VITAMIN D3) * Take 1 capsule by mouth once * LEVONORGESTREL 20 MCG/24 HR (* 1 Each by INTRAUTERINE route * BLOOD SUGAR DIAGNOSTIC STRIPS Test blood sugar(s) one times* LANCETS Test blood sugar(s) one times* Problem List As Of Date 05/12/2018 Noted Resolved Chest pain, unspecified [R07.9] INVALID FOR*11/21/2011 Essential hypertension, benign [I10] INVALID FOR*11/21/2011 Shortness of breath [R06.02] INVALID FOR*11/21/2011 Restless legs syndrome (RLS) [G25.81] INVALID FOR* Insomnia [G47.00] INVALID FOR* PLANTAR Fasciitis [M72.2] INVALID FOR*11/21/2011 Diarrhea [R19.7] INVALID FOR*09/29/2014 Hemorrhage of gastrointestinal tract [K92.2] INVALID FOR* Internal hemorrhoids without mention of complic*INVALID FOR*11/21/2011 Ganglion of joint [M67.40] INVALID FOR*11/21/2011 Irritable bowel syndrome [K58.9] INVALID FOR* PAP SMEAR OF CERVIX W ASCUS [R87.610] INVALID FOR* Cervical high risk human papillomavirus (HPV) D*INVALID FOR* Female stress incontinence [N39.3] INVALID FOR* Pain in limb [M79.609] INVALID FOR*11/21/2011 Calcaneal spur [M77.30] INVALID FOR*11/21/2011 Depressive disorder, not elsewhere classified [*INVALID FOR*11/21/2011 Microscopic hematuria [R31.29] INVALID FOR*11/21/2011 Pain in joint, pelvic region and thigh [M25.559]INVALID FOR*11/21/2011 Cholelithiasis NOS [K80.20] INVALID FOR*11/21/2011 Hypothyroid [E03.9] INVALID FOR* Ovarian cystic mass [N83.209] INVALID FOR*11/21/2011 Depression, major [F32.9] 11/21/2011 Panic attack [F41.0] INVALID FOR*11/21/2011 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] INVALID FOR* Backache, unspecified [M54.9] INVALID FOR*09/29/2014 Cervicalgia [M54.2] INVALID FOR*09/29/2014 Bipolar 2 disorder (HCC) [F31.81] INVALID FOR* Dysuria [R30.0] INVALID FOR*09/29/2014 Hematuria [R31.9] INVALID FOR* Urinary tract infection [N39.0] INVALID FOR*09/29/2014 Urgency of urination [R39.15] INVALID FOR*09/29/2014 Frequency of urination [R35.0] INVALID FOR*09/29/2014 Low back pain [M54.5] INVALID FOR* Family history of ovarian cancer [Z80.41] INVALID FOR* LADONNA (stress urinary incontinence, female) [N39.*INVALID FOR* Cystocele [KAH2514] INVALID FOR* Type 2 diabetes mellitus without complication (*INVALID FOR* Trigger middle finger of left hand [M65.332] INVALID FOR* Coronary atherosclerosis [I25.10] INVALID FOR* More... Essential hypertension [I10] INVALID FOR* Morbid obesity with BMI of 40.0-44.9, adult (HC*INVALID FOR* GERD (gastroesophageal reflux disease) [K21.9] INVALID FOR* TONIO (obstructive sleep apnea) [G47.33] INVALID FOR* More... Iron deficiency concern [E61.1] INVALID FOR* Presence of drug coated stent in LAD coronary a*INVALID FOR* Family history of ischemic heart disease [Z82.4*INVALID FOR* Presence of drug coated stent in right coronary*INVALID FOR* Vitamin D insufficiency [E55.9] INVALID FOR* Sprain of lumbar region-BWC [S33.5XXA] INVALID FOR* Anterior cervical lymphadenopathy [R59.0] INVALID FOR* More... Axillary lymphadenopathy [R59.0] INVALID FOR*08/14/2016 More... 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 If too soon, we will put new RX on hold for next cycle. Sig: TAKE 2 CAPSULES AT BEDTIME Medications Discontinued During This Encounter gabapentin (NEURONTIN) 100 mg capsule 60 c* 0 05/07/2018 05/12/2018 Route: ORAL Sig: Take 2 capsules by mouth daily at bedtime for 30 days. Disc: Reason for discontinue is not on file. Encounter Status:Closed by LESTER LOPEZ CNP on 05/12/18 OBSOLETE Observed: 04/10/2018 Status: COMPLETED Source: [place] 12:00 AM [facility] REPOSITORY Refill (AGFAMPLE) TANMAHI ([id number]) 1975 F Date Time Provider Department 04/10/18 SUAD ARCHIBALD ([facility]) AGFALIZZIE During your visit today, we recorded the following information about you: Raji Merlos CMA 04/10/2018 3:35 PM Signed Last seen and filled 03/10/18. Patient phones requesting refills as follows: Pending Prescriptions Disp Refills GABAPENTIN 100 MG CAPSULE 60 capsule 0 Sig: Take 2 capsules by mouth daily at bedtime for 30 days. ESPINOZA: No Please review and advise. Raji Merlso CMA Allergies As of Date: 04/10/2018 Noted Allergy Reaction BENEDRYL (DIPHENHYDRAMINE) 07/01/2009 Comments: Makes her feel jittery DOXYCYCLINE 08/13/2006 11 - Vomiting IMITREX (SUMATRIPTAN SUCCINATE) 12/06/2009 Comments: chest pain PHENERGAN (PROMETHAZINE HCL) 06/14/2010 5 - Intolerance Comments: restless legs TRAMADOL 07/05/2017 5 - Intolerance Date Reviewed: 03/10/2018 Reviewed by: Suad Castorena (Er Medical Technician-C) Cristela - Fully Assessed Reason for Visit: Refill Request [94] Visit Diagnosis:Restless leg syndrome [G25.81] Order(s):gabapentin (NEURONTIN) 100 mg capsuleTake 2 capsules by mouth daily at bedtime for 30 days.Disp: 60 capsuleRfl: 0 Prescriptions as of 04/10/2018 Sig: GABAPENTIN 100 MG CAPSULE Take 2 capsules by mouth janay* PANTOPRAZOLE 40 MG TABLET,DEL* Take 1 tablet by mouth once d* FAMOTIDINE 20 MG TABLET Take 1 tablet by mouth daily * JANUVIA 100 MG TABLET TAKE 1 TABLET EVERY DAY LEVOTHYROXINE 175 MCG TABLET Take 1 tablet by mouth once d* BLOOD-GLUCOSE METER 1 Units once daily. LANCETS Use as instructed. Preferred * BLOOD SUGAR DIAGNOSTIC STRIPS Use as instructed. Insurance * METFORMIN 1,000 MG TABLET TAKE 1 TABLET TWICE DAILY WIT* FLUTICASONE 50 MCG/ACTUATION * Use 1 Harcourt in each nostril o* ASPIRIN 81 MG CHEWABLE TABLET Take 81 mg by mouth. CARVEDILOL 12.5 MG TABLET Take 1 tablet by mouth twice * FERROUS SULFATE 325 MG (65 MG* Take 1 tablet by mouth daily * ALBUTEROL SULFATE HFA 90 MCG/* Inhale 2 Puffs as instructed * ATORVASTATIN 20 MG TABLET Take 1 tablet by mouth once d* CLOPIDOGREL 75 MG TABLET Take 1 tablet by mouth once d* CHOLECALCIFEROL (VITAMIN D3) * Take 1 capsule by mouth once * LEVONORGESTREL 20 MCG/24 HR (* 1 Each by INTRAUTERINE route * BLOOD SUGAR DIAGNOSTIC STRIPS Test blood sugar(s) one times* LANCETS Test blood sugar(s) one times* Problem List As Of Date 04/10/2018 Noted Resolved Chest pain, unspecified [R07.9] INVALID FOR*11/21/2011 Essential hypertension, benign [I10] INVALID FOR*11/21/2011 Shortness of breath [R06.02] INVALID FOR*11/21/2011 Restless legs syndrome (RLS) [G25.81] INVALID FOR* Insomnia [G47.00] INVALID FOR* PLANTAR Fasciitis [M72.2] INVALID FOR*11/21/2011 Diarrhea [R19.7] INVALID FOR*09/29/2014 Hemorrhage of gastrointestinal tract [K92.2] INVALID FOR* Internal hemorrhoids without mention of complic*INVALID FOR*11/21/2011 Ganglion of joint [M67.40] INVALID FOR*11/21/2011 Irritable bowel syndrome [K58.9] INVALID FOR* PAP SMEAR OF CERVIX W ASCUS [R87.610] INVALID FOR* Cervical high risk human papillomavirus (HPV) D*INVALID FOR* Female stress incontinence [N39.3] INVALID FOR* Pain in limb [M79.609] INVALID FOR*11/21/2011 Calcaneal spur [M77.30] INVALID FOR*11/21/2011 Depressive disorder, not elsewhere classified [*INVALID FOR*11/21/2011 Microscopic hematuria [R31.29] INVALID FOR*11/21/2011 Pain in joint, pelvic region and thigh [M25.559]INVALID FOR*11/21/2011 Cholelithiasis NOS [K80.20] INVALID FOR*11/21/2011 Hypothyroid [E03.9] INVALID FOR* Ovarian cystic mass [N83.209] INVALID FOR*11/21/2011 Depression, major [F32.9] 11/21/2011 Panic attack [F41.0] INVALID FOR*11/21/2011 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] INVALID FOR* Backache, unspecified [M54.9] INVALID FOR*09/29/2014 Cervicalgia [M54.2] INVALID FOR*09/29/2014 Bipolar 2 disorder (HCC) [F31.81] INVALID FOR* Dysuria [R30.0] INVALID FOR*09/29/2014 Hematuria [R31.9] INVALID FOR* Urinary tract infection [N39.0] INVALID FOR*09/29/2014 Urgency of urination [R39.15] INVALID FOR*09/29/2014 Frequency of urination [R35.0] INVALID FOR*09/29/2014 Low back pain [M54.5] INVALID FOR* Family history of ovarian cancer [Z80.41] INVALID FOR* LADONNA (stress urinary incontinence, female) [N39.*INVALID FOR* Cystocele [IOE9934] INVALID FOR* Type 2 diabetes mellitus without complication (*INVALID FOR* Trigger middle finger of left hand [M65.332] INVALID FOR* Coronary atherosclerosis [I25.10] INVALID FOR* More... Essential hypertension [I10] INVALID FOR* Morbid obesity with BMI of 40.0-44.9, adult (HC*INVALID FOR* GERD (gastroesophageal reflux disease) [K21.9] INVALID FOR* TONIO (obstructive sleep apnea) [G47.33] INVALID FOR* More... Iron deficiency concern [E61.1] INVALID FOR* Presence of drug coated stent in LAD coronary a*INVALID FOR* Family history of ischemic heart disease [Z82.4*INVALID FOR* Presence of drug coated stent in right coronary*INVALID FOR* Vitamin D insufficiency [E55.9] INVALID FOR* Sprain of lumbar region-BWC [S33.5XXA] INVALID FOR* Anterior cervical lymphadenopathy [R59.0] INVALID FOR* More... Axillary lymphadenopathy [R59.0] INVALID FOR*08/14/2016 More... Onychomycosis [B35.1] INVALID FOR* Mild intermittent asthma without complication [*INVALID FOR* Prolonged QT interval [R94.31] INVALID FOR* Chronic pain of left knee [M25.562, G89.29] INVALID FOR* Iron deficiency anemia [D50.9] INVALID FOR* Gastroesophageal reflux disease [K21.9] INVALID FOR* Family history of coronary artery disease [Z82.*INVALID FOR* Hyperlipidemia [E78.5] INVALID FOR* Obesity, Class II, BMI 35-39.9 E66.9 [E66.9] INVALID FOR* Asthma [J45.909] INVALID FOR* History of cholecystectomy [Z90.49] INVALID FOR* History of thyroidectomy [E89.0] INVALID FOR* alf (current) use of antithrombotics/anti*INVALID FOR* sign painter (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 Medications Discontinued During This Encounter gabapentin (NEURONTIN) 100 mg capsule 60 c* 0 03/10/2018 04/10/2018 Route: ORAL Sig: Take 2 capsules by mouth daily at bedtime for 30 days. Disc: Reason for discontinue is not on file. Encounter Status:Closed by SUAD MORELOS on 04/10/18 EMERGENCY DEPARTMENT Observed: 03/31/2018 Status: F Source: [place] SUMMARY 3:07 AM [facility] REPOSITORY [facility] Medical Records Department [address] [place] [address] Emergency Department Summary 03/30/182017 MR#: [id number] Acct: [id number] Name: MAHI TAN Rep #: [id number] : 1975 42 From: Gil Cuevas MD PCP: HALLIE Albright Status: DEP ER - ER Visit Summary Date of Service: 03/30/18 Chief Complaint: Right ankle injury History of Present Illness: The patient is a 42 F presenting for evaluation secondary to right ankle injury. Patient states she is camping with her grandkids and they dug a hole and she stepped in it. She suffered a plantar inversion injury of her right ankle. She denies hitting her head or loss of consciousness. She is able to bear weight with some difficulty. Patient is not on any sort of anticoagulants, denies any other injuries. Physical Examination: Physical exam unremarkable except for examination of the right lower extremity. No evidence of proximal fibular head tenderness, the lateral malleolus is swelling and and tender, no medial malleolar tenderness. No midfoot or fifth metatarsal tenderness. 2+ DP and PT pulses that are bilaterally symmetric. Normal sensation over all dermatomes, normal capillary refill, no evidence of laxity with drawer testing. Test Results: 3 view of the ankle found to be negative Emergency Department Course and Treatment: Patient presented for evaluation secondary to an ankle injury. X-rays are negative. Patient was provided with an Siobhan wrap Naprosyn and follow-up with primary care. Disposition: Discharge Impression: 1. Right ankle sprain This note was generated with [employer] dictation software. It may contain incorrect words, spelling, and punctuation that were not noted in review of the chart prior to signing ED Disposition - Plan for ED Patient: Disposition: Home or Assisted Living Chief Complaint: Lower Extremity Injury Diagnosis: Ankle sprain Instructions: ED Sprain Ankle No X Ray Referrals: Lester Lopez NP-C [Primary Care Provider] - As Needed What to do if you have Problems For any increased pain, shortness of breath, bleeding, nausea or vomiting, chest pain, or any unexpected problems, contact your Primary Care Provider. Call [facility] ([phone]) or report to the closest Emergency Room. Call 911 if necessary. 03/31/18 0307 <Electronically signed by Gil Cuevas MD> Date Gil Cuevas MD Cosigner Signature (If Indicated): Date CC: HALLIE Lopez OBSOLETE Observed: 03/31/2018 Status: COMPLETED Source: [place] 12:00 AM [facility] REPOSITORY Refill (AGFAMPLE) MAHI TAN ([id number]) 1975 F Date Time Provider Department 03/31/18 LESTER LOPEZ ([facility]) AGKASSANDRA During your visit today, we recorded the following information about you: Gabo Mcginnis CMA 03/31/2018 2:34 PM Signed Has OV 05/21/18 Pharmacy electronically requests the following refill(s) Pending Prescriptions Disp Refills PANTOPRAZOLE 40 MG TABLET,DELAYED RELEASE 30 tablet 1 Sig: Take 1 tablet by mouth once daily. ESPINOZA: Yes Gabo Mcginnis CMA Allergies As of Date: 03/31/2018 Noted Allergy Reaction BENEDRYL (DIPHENHYDRAMINE) 07/01/2009 Comments: Makes her feel jittery DOXYCYCLINE 08/13/2006 11 - Vomiting IMITREX (SUMATRIPTAN SUCCINATE) 12/06/2009 Comments: chest pain PHENERGAN (PROMETHAZINE HCL) 06/14/2010 5 - Intolerance Comments: restless legs TRAMADOL 07/05/2017 5 - Intolerance Date Reviewed: 03/10/2018 Reviewed by: Suad Castorena (Er Medical Technician-C) Cristela - Fully Assessed Reason for Visit: Refill Request [94] Order(s):pantoprazole DR (PROTONIX) 40 mg tabletTake 1 tablet by mouth once daily.Disp: 30 tabletRfl: 1 Prescriptions as of 03/31/2018 Sig: PANTOPRAZOLE 40 MG TABLET,DEL* Take 1 tablet by mouth once d* GABAPENTIN 100 MG CAPSULE Take 2 capsules by mouth janay* FAMOTIDINE 20 MG TABLET Take 1 tablet by mouth daily * JANUVIA 100 MG TABLET TAKE 1 TABLET EVERY DAY LEVOTHYROXINE 175 MCG TABLET Take 1 tablet by mouth once d* BLOOD-GLUCOSE METER 1 Units once daily. LANCETS Use as instructed. Preferred * BLOOD SUGAR DIAGNOSTIC STRIPS Use as instructed. Insurance * METFORMIN 1,000 MG TABLET TAKE 1 TABLET TWICE DAILY WIT* FLUTICASONE 50 MCG/ACTUATION * Use 1 Harcourt in each nostril o* ASPIRIN 81 MG CHEWABLE TABLET Take 81 mg by mouth. CARVEDILOL 12.5 MG TABLET Take 1 tablet by mouth twice * FERROUS SULFATE 325 MG (65 MG* Take 1 tablet by mouth daily * ALBUTEROL SULFATE HFA 90 MCG/* Inhale 2 Puffs as instructed * ATORVASTATIN 20 MG TABLET Take 1 tablet by mouth once d* CLOPIDOGREL 75 MG TABLET Take 1 tablet by mouth once d* CHOLECALCIFEROL (VITAMIN D3) * Take 1 capsule by mouth once * LEVONORGESTREL 20 MCG/24 HR (* 1 Each by INTRAUTERINE route * BLOOD SUGAR DIAGNOSTIC STRIPS Test blood sugar(s) one times* LANCETS Test blood sugar(s) one times* Problem List As Of Date 03/31/2018 Noted Resolved Chest pain, unspecified [R07.9] INVALID FOR*11/21/2011 Essential hypertension, benign [I10] INVALID FOR*11/21/2011 Shortness of breath [R06.02] INVALID FOR*11/21/2011 Restless legs syndrome (RLS) [G25.81] INVALID FOR* Insomnia [G47.00] INVALID FOR* PLANTAR Fasciitis [M72.2] INVALID FOR*11/21/2011 Diarrhea [R19.7] INVALID FOR*09/29/2014 Hemorrhage of gastrointestinal tract [K92.2] INVALID FOR* Internal hemorrhoids without mention of complic*INVALID FOR*11/21/2011 Ganglion of joint [M67.40] INVALID FOR*11/21/2011 Irritable bowel syndrome [K58.9] INVALID FOR* PAP SMEAR OF CERVIX W ASCUS [R87.610] INVALID FOR* Cervical high risk human papillomavirus (HPV) D*INVALID FOR* Female stress incontinence [N39.3] INVALID FOR* Pain in limb [M79.609] INVALID FOR*11/21/2011 Calcaneal spur [M77.30] INVALID FOR*11/21/2011 Depressive disorder, not elsewhere classified [*INVALID FOR*11/21/2011 Microscopic hematuria [R31.29] INVALID FOR*11/21/2011 Pain in joint, pelvic region and thigh [M25.559]INVALID FOR*11/21/2011 Cholelithiasis NOS [K80.20] INVALID FOR*11/21/2011 Hypothyroid [E03.9] INVALID FOR* Ovarian cystic mass [N83.209] INVALID FOR*11/21/2011 Depression, major [F32.9] 11/21/2011 Panic attack [F41.0] INVALID FOR*11/21/2011 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] INVALID FOR* Backache, unspecified [M54.9] INVALID FOR*09/29/2014 Cervicalgia [M54.2] INVALID FOR*09/29/2014 Bipolar 2 disorder (HCC) [F31.81] INVALID FOR* Dysuria [R30.0] INVALID FOR*09/29/2014 Hematuria [R31.9] INVALID FOR* Urinary tract infection [N39.0] INVALID FOR*09/29/2014 Urgency of urination [R39.15] INVALID FOR*09/29/2014 Frequency of urination [R35.0] INVALID FOR*09/29/2014 Low back pain [M54.5] INVALID FOR* Family history of ovarian cancer [Z80.41] INVALID FOR* LADONNA (stress urinary incontinence, female) [N39.*INVALID FOR* Cystocele [HHD1595] INVALID FOR* Type 2 diabetes mellitus without complication (*INVALID FOR* Trigger middle finger of left hand [M65.332] INVALID FOR* Coronary atherosclerosis [I25.10] INVALID FOR* More... Essential hypertension [I10] INVALID FOR* Morbid obesity with BMI of 40.0-44.9, adult (HC*INVALID FOR* GERD (gastroesophageal reflux disease) [K21.9] INVALID FOR* TONIO (obstructive sleep apnea) [G47.33] INVALID FOR* More... Iron deficiency concern [E61.1] INVALID FOR* Presence of drug coated stent in LAD coronary a*INVALID FOR* Family history of ischemic heart disease [Z82.4*INVALID FOR* Presence of drug coated stent in right coronary*INVALID FOR* Vitamin D insufficiency [E55.9] INVALID FOR* Sprain of lumbar region-BWC [S33.5XXA] INVALID FOR* Anterior cervical lymphadenopathy [R59.0] INVALID FOR* More... Axillary lymphadenopathy [R59.0] INVALID FOR*08/14/2016 More... Onychomycosis [B35.1] INVALID FOR* Mild intermittent asthma without complication [*INVALID FOR* Prolonged QT interval [R94.31] INVALID FOR* Chronic pain of left knee [M25.562, G89.29] INVALID FOR* Iron deficiency anemia [D50.9] INVALID FOR* Gastroesophageal reflux disease [K21.9] INVALID FOR* Family history of coronary artery disease [Z82.*INVALID FOR* Hyperlipidemia [E78.5] INVALID FOR* Obesity, Class II, BMI 35-39.9 E66.9 [E66.9] INVALID FOR* Asthma [J45.909] INVALID FOR* History of cholecystectomy [Z90.49] INVALID FOR* History of thyroidectomy [E89.0] INVALID FOR* alf (current) use of antithrombotics/anti*INVALID FOR* sign painter (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 Medications Discontinued During This Encounter pantoprazole DR (PROTONIX) 40 mg tab* 30 t* 11 04/01/2017 03/31/2018 Route: ORAL Sig: Take 1 tablet by mouth once daily. Disc: Reason for discontinue is not on file. Encounter Status:Closed by SUAD MORELOS on 03/31/18 ANKLE MIN 3 VIEWS Observed: 03/30/2018 Status: F Source: [place] 7:21 PM [facility] [facility] [address] [place] [id number] Ankle min 3 Views MR#: [id number] Acct: [id number] Name: MAHI TAN Rep #: [id number] : 1975 F 42 From: Farhat Martin MD PCP: HALLIE Albright Status: PRE ER Study: Ankle min 3 Views Date of Exam: 03/30/18 Exam# [id number] Ordering Dr: Gil Cuevas MD STUDY: X-RAY - RIGHT ANKLE REASON FOR EXAM: Female, 42 years old. Fall TECHNIQUE: 3 view(s) of the ankle. COMPARISON: None. FINDINGS: There is no evidence of fracture or dislocation. There are no significant degenerative changes. There are no radiodense foreign bodies. There is soft tissue swelling at the lateral aspect of the right ankle. RAD/Ankle min 3 Views IMPRESSION: No fracture or dislocation. Soft tissue swelling laterally. Electronically Signed: Farhat Martin, at 19:44 EDT Tel , Service support , CC: HALLIE Lopez; Gil Cuevas [employer] Technician: Signed LIPID PROFILE Collected: 03/19/2018 Status: F Source: [facility] 8:07 AM HEALTH SYSTEM REPOSITORY TYPE CODE TESTS RESULT OUT OF REFERENCE UNITS RANGE LAB LCHOL(LOIN 0-199 mg/dL C) Cholesterol Blood 127 LAB LTRIG(LOIN 0-149 mg/dL C) Triglyceride High Blood 184 LAB LHDL2(LOIN >40 mg/dL C) HDL Cholesterol 34 LAB LLDL(LOINC 0-150 mg/dL ) LDL 56 LAB LCHHD(LOIN 1.8-5.3 C) CHOL/HDL 3.7 LAB LRISK(LOIN C) Risk Factor 3.7 Result Comment: Cardiac Risk Factor The CHD risk factor is based on the total Chol/HDL ratio. Other factors affect CHD risk such as hypertension, smoking, diabetes, severe obesity and premature CHD. Cardiac Risk Total Chol/HDL ratio Men Women 1/2 avg risk 3.4-4.9 3.3-6.3 Avg risk 5.0-9.5 6.4-7.0 2x avg risk 9.6-23.3 7.1-10.9 3x avg risk >23.4 >11.0 Performed By: #### LLIPD #### [facility] [address] [place], [place] [address] HEPATITIS ACUTE PANEL Collected: 03/19/2018 Status: F Source: [facility] 8:07 AM HEALTH SYSTEM REPOSITORY TYPE CODE TESTS RESULT OUT OF REFERENCE UNITS RANGE LAB HBSA(LOINC Negative ) Hep.B Surface Ag Negative LAB HCV(LOINC) Negative Hepatitis C Ab Negative LAB HBCO(LOINC Negative ) HB Core Ab IgM Negative LAB HAVA(LOINC Negative ) HAV Ab IgM Negative Performed By: #### HEPP #### [facility] [address] [place], [place] [address] US HEAD/NECK SOFT Observed: 03/17/2018 Status: F Source: [facility] TISSUE OTHER 9:47 AM HEALTH SYSTEM REPOSITORY Performed at [facility] APPROVED BY: Ezequiel Luther MD EXAMINATION: ULTRASOUND HEAD/NECK SOFT TISSUES DATE: 03/17/2018 08:35 COMPARISON: Ultrasound guided lymph node biopsy right neck 08/07/2016. Ultrasound soft tissues head and neck 07/04/2016. CLINICAL INDICATION/HISTORY: Enlarged/palpable head and neck lymph nodes. TECHNIQUE: Scanning was performed with a high frequency linear transducer by the technologist. Images were stored in a permanent archive. FINDINGS: Several lymph nodes are seen bilaterally at the areas of interest as follows: Right neck, just below the jaw, measuring 3.4 x 2.0 x 0.8 cm and 0.8 x 0.4 x 1.0 cm, respectively. Left neck, just below the jaw, measuring 3.2 x 1.4 x 1.2 cm and 1.2 x 0.6 x 1.0 centimeters, respectively. Left occipital node measuring 0.8 x 0.5 x 0.3 cm. All of the visualized nodes have a normal appearance morphologically, with a normal fatty hilum. IMPRESSION: Few mildly enlarged lymph nodes as detailed. The etiology is uncertain although these are favored reactive/inflammatory, given the normal morphology. Consider further evaluation with CT neck with contrast if these continue to enlarge, or as clinically indicated otherwise. US ABDOMEN Observed: 03/17/2018 Status: F Source: [facility] 9:41 AM HEALTH SYSTEM REPOSITORY Performed at [facility] APPROVED BY: Jaun Franklin MD EXAMINATION: COMPLETE ABDOMINAL ULTRASOUND CLINICAL HISTORY: Enlarged liver and spleen on clinical exam. TECHNIQUE: Sonography of the abdomen was performed. Images were obtained and stored in a permanent archive. MQ: UAbC_1 COMPARISON: None RESULT: Pancreas: Normal sonographic appearance. Portions obscured: Tail Lesions: None Liver: The liver is echodense and enlarged. It measures 21 cm in cephalocaudal dimension (upper limit of normal is 16 cm). Echodense nature of the liver suggests hepatic steatosis. Biliary: No intrahepatic biliary duct dilation. CBD: 0.5 cm at the hilum. Gallbladder: Surgically absent Spleen: Craniocaudal length: 14.6 cm Lesions: None Right Kidney: -Renal length: 11.4 cm -Parenchyma: Normal parenchymal echogenicity. Normal parenchymal thickness. -Collecting system: No hydronephrosis. -Calculus: No echogenic, shadowing calculus. -Lesion: None. Left Kidney: -Renal length: 12.2 cm -Parenchyma: Normal parenchymal echogenicity. Normal parenchymal thickness. -Collecting system: No hydronephrosis. -Calculus: No echogenic, shadowing calculus. -Lesion: None. Bladder: Normal. IVC: Imaged segment is patent. Abdominal Aorta: Imaged segment is patent. Ascites: None. IMPRESSION: Hepatosplenomegaly DOWNTIME REPORT Observed: 03/12/2018 Status: F Source: [facility] 1:48 PM [facility] REPOSITORY [facility] Medical Records Department [address] [place] [address] Downtime Report MR#: [id number] Acct: [id number] Name: MAHI TAN Rep #: [id number] : 1975 42 From: Celestino Elkins MD PCP: ALVARO AlbrightC Status: DEP ER This patient was seen during an EMR downtime February 24, 2018 - March 03, 2018. This patient may have a combination of paper and electronic documentation or all paper documentation. All documentation is viewable within the e-chart portion of [facility] for each patient visit. HEMOGRAM/DIFF Collected: 03/10/2018 Status: F Source: [facility] 11:46 AM HEALTH SYSTEM REPOSITORY TYPE CODE TESTS RESULT OUT OF REFERENCE UNITS RANGE LAB LWBC(LOINC 4.8-10.8 thou/cmm ) WBC 7.8 LAB LRBC(LOINC 4.20-5.40 mil/cmm ) RBC 4.97 LAB LHGB(LOINC 12.0-16.0 g/dL ) Hgb 14.0 LAB LHCT(LOINC 37.0-47.0 % ) Hct 42.8 LAB LMCV(LOINC 81.0-99.0 fl ) MCV 86.1 LAB LMCH(LOINC 27.0-31.0 pg ) MCH 28.2 LAB LMCHC(LOIN 32.0-36.0 % C) MCHC 32.7 LAB LRDW(LOINC 11.5-15.9 % ) RDW 13.4 LAB LPLT(LOINC 150-400 thou/cmm ) Platelet 249 LAB LMPV(LOINC 7.1-10.5 fl ) MPV High 10.6 LAB LSEGT(LOIN % C) Seg Neutrophil 72.1 LAB LLYMP(LOIN % C) Lymphocyte 19.8 LAB LMNO(LOINC % ) Monocyte 4.6 LAB DORI(LOINC % ) Eosinophil 2.9 LAB LBASO(LOIN % C) Basophil 0.6 LAB LSEGN(LOIN 3.00-5.67 thou/cmm C) Abs. Neut (ANC) 5.62 Result Comment: CORRECTED: Previous result = 5.61, verified at 12:38 on 03/10/18. LAB LLYMN(LOINC) 1.50-3.65 thou/cmm Abs. Lymph 1.54 LAB LMONN(LOINC) 0.20-1.00 thou/cmm Abs. Hitchcock 0.36 LAB LEOSN(LOINC) 0.00-0.41 thou/cmm Abs. Eosin 0.23 LAB LBASN(LOINC) 0.00-0.08 thou/cmm Abs. Baso 0.05 Performed By: #### LCBCD #### [address] [address] COMPREHENSIVE PANEL Collected: 03/10/2018 Status: F Source: [facility] 11:46 AM HEALTH SYSTEM REPOSITORY TYPE CODE TESTS RESULT OUT OF REFERENCE UNITS RANGE LAB DELIVERY ASSOCIATE(LOINC) 136-145 mEq/L Sodium Blood 137 LAB LK(LOINC) 3.5-5.1 mEq/L Potassium Blood 4.3 LAB LCL(LOINC) 98-107 mEq/L Chloride Blood 104 LAB LCO2(LOINC 21-32 mEq/L ) CO2 Blood 26 LAB LGLU(LOINC 70-99 mg/dL ) Glucose High Blood 135 LAB LBUN(LOINC 7-25 mg/dL ) BUN Blood 8 LAB LCREA(LOIN 0.51-0.95 mg/dL C) Creatinine Blood 0.69 LAB LCA(LOINC) 8.5-10.1 mg/dL Calcium Blood 9.7 LAB LALB(LOINC 3.4-5.0 g/dL ) Albumin Blood 4.4 LAB LTP(LOINC) 6.4-8.2 g/dL Total Protein 8.0 LAB LAST(LOINC 15-37 U/L ) AST-SGOT High Blood 56 LAB LALT(LOINC 14-63 U/L ) ALT-SGPT Blood 53 LAB LALKP(LOIN 46-116 U/L C) Alk Phosphatase 96 LAB LBILT(LOIN 0.2-1.0 mg/dL C) Total Bilirubin 0.7 LAB LANGP(LOIN 8-20 C) Anion Gap 12 LAB LBNCR(LOIN 10-20 C) BUN/Creatinine 12 Ratio Performed By: #### LP14 #### [place] [address] MDRD EGFR Collected: 03/10/2018 Status: F Source: [facility] 11:46 AM HEALTH SYSTEM REPOSITORY TYPE CODE TESTS RESULT OUT OF RANGE REFERENCE UNITS LAB LGFRF(LOINC >60mL/min/1.73m ) 2 eGFR >60 Result Comment: If the patient is , multiply the result by 1.210. Performed By: #### LGFR #### [place] [address] TSH Collected: 03/10/2018 Status: F Source: [facility] 11:46 AM HEALTH SYSTEM REPOSITORY TYPE CODE TESTS RESULT OUT OF RANGE REFERENCE UNITS LAB LTSH(LOINC) 0.34-4.82 uIU/mL TSH 0.70 Performed By: #### LTSH #### [place] [address] HEMOGLOBIN A1C Collected: 03/10/2018 Status: F Source: [facility] 11:46 AM HEALTH SYSTEM REPOSITORY TYPE CODE TESTS RESULT OUT OF REFERENCE UNITS RANGE LAB LA1C2(LOINC 4.5-6.2 % ) High Hgb A1c 6.4 LAB ESAV(LOINC) mg/dl Est. Avg. 137 Glucose Performed By: #### LA1C #### [place] [address] IRON % SATURATION Collected: 03/10/2018 Status: F Source: [facility] 11:46 AM HEALTH SYSTEM REPOSITORY TYPE CODE TESTS RESULT OUT OF REFERENCE UNITS RANGE LAB IRON(LOINC 50-170 ug/dL ) Iron Serum 71 LAB IBC(LOINC) 250-450 ug/dL Iron Binding Cap. 341 LAB IRON%(LOIN 20-55 % C) Iron % Saturation 21 Performed By: #### IRONS #### [place] [address] FERRITIN Collected: 03/10/2018 Status: F Source: [facility] 11:46 AM HEALTH SYSTEM REPOSITORY TYPE CODE TESTS RESULT OUT OF REFERENCE UNITS RANGE LAB FERR(LOINC) 8.00-252.00 ng/mL Ferritin 77.00 Performed By: #### FERR #### [place] [address] FOLATE Collected: 03/10/2018 Status: F Source: [facility] 11:46 AM HEALTH SYSTEM REPOSITORY TYPE CODE TESTS RESULT OUT OF REFERENCE UNITS RANGE LAB FOL(LOINC) 3.10-17.50 ng/mL High Folate 44.00 Result Comment: RESULT RECHECKED Performed By: #### FOL #### [place] [address] VITAMIN B12 Collected: 03/10/2018 Status: F Source: [facility] 11:46 AM HEALTH SYSTEM REPOSITORY TYPE CODE TESTS RESULT OUT OF REFERENCE UNITS RANGE LAB B12(LOINC) 193-986 pg/mL Vitamin B12 512 Performed By: #### B12 #### [place] [address] PROGRESS Observed: 03/10/2018 Status: COMPLETED Source: [place] 10:58 AM [facility] REPOSITORY HNO ID: [id number] Author: Suad GuilloryEr Medical Technician-C) Cristela Service: (none) Author Type: Nurse Practitioner Type: Progress Notes Filed: 03/10/2018 1:43 PM Note Text: SUBJECTIVE: Mahi Tan is a 42 year old female who presents for an ER follow-up. She went to [facility] on 03/01/18 for right upper quadrant pain. Hx of a mirna. She had a CT of her abdomen/pelvis done and it showed hepatosplenomegaly and some mildly enlarged inguinal lymph nodes. Current complaints include worsening fatigue, RUQ pain, swollen lymph nodes in the back of her head, night sweats, and feeling hot and unable to cool off. Has had this RUQ pain in the past and her past liver function were WNL and the pain subsided. She was also having joint pain in the past, her sed rate was elevated, and was sent to a schedule announcer and had the initial blood work done which was unremarkable. Never followed-up. States she has had swollen lymph nodes in the past and has had a biopsy completed and it was bengin. Currently taking Ibuprofen and using ice for the pain. Mom- hx of Hodgkin's lymphoma Denies any recent illnesses or recent antibiotics BS at home have been FBS-115-120, Checks it in the morning, hasn't had any lows The history is provided by the patient. No paper products inspector was used. Fatigue This is a new problem. The current episode started in the past 7 days. The problem occurs daily. The problem has been gradually worsening. Associated symptoms include abdominal pain (RUQ), arthralgias, diaphoresis, fatigue, headaches (Back of head), nausea (Couple times a day, decreased appetite), swollen glands and weakness. Pertinent negatives include no anorexia, change in bowel habit, chest pain, chills, congestion, coughing, fever, joint swelling, myalgias, neck pain, numbness, rash, sore throat, urinary symptoms, vertigo, visual change or vomiting. Nothing aggravates the symptoms. She has tried rest and sleep for the symptoms. The treatment provided no relief. Abdominal Pain This is a new problem. The current episode started more than 2 days ago (5-6 days). The problem occurs daily. The pain is associated with eating. The pain is located in the RUQ. The quality of the pain is aching and dull. The pain is at a severity of 4/10. The pain is moderate. Associated symptoms include nausea (Couple times a day, decreased appetite), headaches (Back of head) and arthralgias. Pertinent negatives include anorexia, fever, belching, diarrhea, flatus, hematochezia, melena, vomiting, constipation, dysuria, frequency, hematuria and myalgias. The symptoms are aggravated by eating. Nothing relieves the symptoms. Past workup includes CT scan (In [facility] 03/01/18). Past workup does not include GI consult, ultrasound, surgery or barium enema. Her past medical history is significant for gallstones (Hx of mirna), GERD and irritable bowel syndrome. Her past medical history does not include PUD, ulcerative colitis or Crohn's disease. Thyroid Problem Presents for follow-up visit. Symptoms include diaphoresis, fatigue and heat intolerance. Patient reports no anxiety, cold intolerance, constipation, depressed mood, diarrhea, dry skin, hair loss, hoarse voice, leg swelling, menstrual problem, nail problem, palpitations, tremors, visual change, weight gain or weight loss. (Dry eyes, dry mouth) The symptoms have been worsening. PAST MEDICAL HISTORY Diagnosis Date - Allergic rhinitis - Anxiety - Asthma no issues for several years - Bipolar 2 disorder (HCC) 11/21/2011 - CAD (coronary artery disease) - Calculus of gallbladder without mention of cholecystitis or obstruction 08/24/2009 - Cervical high risk human papillomavirus (HPV) DNA test positive - Common cold - Depression, major - Depressive disorder Dr. Cornell- [facility] - Diabetes (HCC) - Diarrhea - Double vessel coronary artery disease 2 stents - Excessive or frequent menstruation Heavy periods Resolved - Female stress incontinence 01/13/2008 - Ganglion of joint 10/14/2007 - GERD (gastroesophageal reflux disease) - Hand joint pain - Hand pain - Hemorrhage of gastrointestinal tract, unspecified - History of intrauterine contraceptive device Mirena placed May 2015 Dr. Willy Schmid - Hyperlipidemia - Hypertension - Internal hemorrhoids without mention of complication - Irregular menstrual cycle Irregular periods Resolved - Irritable bowel syndrome Irritable bowel - Itching - Obesity - Obstructive sleep apnea - Onychomycosis - Other specified acquired hypothyroidism - Ovarian cystic mass 06/07/2010 - Panic attack 07/18/2010 - Papanicolaou smear of cervix with atypical squamous cells of undetermined significance (ASC-US) - Paresthesia of hand - PLANTAR Fasciitis 07/15/2007 - PMH - PAST MEDICAL HISTORY OF restless leg syndrome - PTSD (post-traumatic stress disorder) - Status post left heart catheterization 10/2014 PAST SURGICAL HISTORY Procedure Laterality Date - ANGIOPLASTY 11/23/14 [facility]-proximal LAD and proximal RCA 2 stents - CARDIAC CATHETERIZATION HX 11/20/14 [facility]-proximal RCA lesion - COLONOSCOP W/ OR W/O [facility] SPEC 06/09/14 Colonoscopy - COLONOSCOPY W/BX 08/13/07 - COLPOSCOPY (VAGINOSCOPY) 2006 Colposcopy - EXCIS PRIMARY GANGLION WRIST 11/04/07 LEFT WRIST, Dr. Alcantara - LAP CHOLECYSTECT/CHOLANGIOGRAPHY 09/05/2009 Normal IOC - LIGATE FALLOPIAN TUBE 10/1998 Tubal ligation, [facility] - PAST SURGICAL HISTORY OF Left 01/28/15 middle trigger finger release - S [facility]ING DANIELLE HARVEY TOTScott 9186 2013 monarc - THYROIDECTOMY 01/1994 goiter no cancer Social History Substance Use Topics - Smoking status: Never Smoker - Smokeless tobacco: Never Used - Alcohol use No Family history reviewed. ALLERGIES Allergen Reactions - Benedryl [Diphenhyd* Makes her feel jittery - Doxycycline Vomiting - Imitrex [Sumatripta* chest pain - Phenergan [Prometha* Intolerance restless legs - Tramadol Intolerance Current Outpatient Prescriptions: famotidine (PEPCID) 20 mg tablet Take 1 tablet by mouth daily at bedtime. JANUVIA 100 mg tablet TAKE 1 TABLET EVERY DAY levothyroxine (SYNTHROID) 175 mcg tablet Take 1 tablet by mouth once daily. Blood-Glucose Meter misc 1 Units once daily. Lancets lancets Use as instructed. Preferred insurance brand. blood sugar diagnostic (ONETOUCH ULTRA TEST) test strip Use as instructed. Insurance preferred brand. gabapentin (NEURONTIN) 100 mg capsule TAKE 2 CAPSULES AT BEDTIME metFORMIN (GLUCOPHAGE) 1,000 mg tablet TAKE 1 TABLET TWICE DAILY WITH meals fluticasone (FLONASE) 50 mcg/actuation nasal spray Use 1 [place] in each nostril once daily. aspirin 81 mg chewable tablet Take 81 mg by mouth. carvedilol (COREG) 12.5 mg tablet Take 1 tablet by mouth twice daily. pantoprazole DR (PROTONIX) 40 mg tablet Take 1 tablet by mouth once daily. ferrous sulfate (IRON) 325 mg (65 mg iron) tablet Take 1 tablet by mouth daily with breakfast. albuterol HFA (VENTOLIN HFA) 90 mcg/actuation inhaler Inhale 2 Puffs as instructed every 4 hours as needed for Wheezing/Shortness of Breath. atorvastatin (LIPITOR) 20 mg tablet Take 1 tablet by mouth once daily. clopidogrel (PLAVIX) 75 mg tablet Take 1 tablet by mouth once daily. Cholecalciferol, Vitamin D3, 1,000 unit cap Take 1 capsule by mouth once daily. levonorgestrel (MIRENA) 20 mcg/24 hr (5 years) IUD 1 Each by INTRAUTERINE route continuous. blood sugar diagnostic (BLOOD GLUCOSE TEST) test strip Test blood sugar(s) one times daily. Dx: 250.00. Insulin: No Lancets lancets Test blood sugar(s) one times daily. Dx: 250.00. Insulin: No No current facility-administered medications for this visit. Review of Systems Constitutional: Positive for diaphoresis, fatigue and malaise/fatigue. Negative for chills, fever, weight gain and weight loss. HENT: Negative for congestion, ear discharge, ear pain, hearing loss, hoarse voice, nosebleeds, sinus pain, sore throat and tinnitus. Mouth dry Eyes: Negative. Dry eyes Respiratory: Negative. Negative for cough, shortness of breath, wheezing and stridor. Cardiovascular: Negative. Negative for chest pain and palpitations. Gastrointestinal: Positive for abdominal pain (RUQ) and nausea (Couple times a day, decreased appetite). Negative for anorexia, blood in stool, change in bowel habit, constipation, diarrhea, flatus, heartburn, hematochezia, melena and vomiting. Genitourinary: Negative. Negative for dysuria, frequency, hematuria and menstrual problem. Musculoskeletal: Positive for arthralgias and joint pain (Intermittent achiness). Negative for back pain, falls, joint swelling, myalgias and neck pain. Skin: Negative for itching and rash. Neurological: Positive for dizziness (Lightheaded when turning head, intermittently), weakness and headaches (Back of head). Negative for vertigo, tingling, tremors, sensory change, speech change, focal weakness, seizures, loss of consciousness and numbness. Endo/Heme/Allergies: Positive for heat intolerance. Negative for environmental allergies, cold intolerance and polydipsia. Does not bruise/bleed easily. Psychiatric/Behavioral: Negative for depression, hallucinations, memory loss, substance abuse and suicidal ideas. The patient is not nervous/anxious and does not have insomnia. Sleep interrupted since she's been off her Neurontin the past few days BP 126/88 Pulse 87 Temp 98.4 Ht 5' 5 (1.65m) Wt 233 lb 3.2 oz (105.8kg) BMI 38.81 kg/(m2). I reviewed past medical, surgical, social, and family histories today and updated chart. Allergies, chronic medications, and supplements were also reviewed. PHYSICAL EXAMINATION: Physical Exam Constitutional: She is oriented to person, place, and time and well-developed, well-nourished, and in no distress. Vital signs are normal. She does not have a sickly appearance. HENT: Head: Normocephalic and atraumatic. Right Ear: External ear and ear canal normal. Tympanic membrane is injected. Tympanic membrane is not bulging. No middle ear effusion. Left Ear: Tympanic membrane, external ear and ear canal normal. Nose: Nose normal. Mouth/Throat: Uvula is midline and oropharynx is clear and moist. Mucous membranes are dry. Eyes: Conjunctivae, EOM and lids are normal. Pupils are equal, round, and reactive to light. Right eye exhibits no discharge. Left eye exhibits no discharge. Neck: Trachea normal, normal range of motion and full passive range of motion without pain. Neck supple. No JVD present. No spinous process tenderness and no muscular tenderness present. Carotid bruit is not present. No neck rigidity. No tracheal deviation, no edema, no erythema and normal range of motion present. No thyroid mass and no thyromegaly present. Cardiovascular: Normal rate, regular rhythm, normal heart sounds and intact distal pulses. Pulmonary/Chest: Effort normal and breath sounds normal. No respiratory distress. She has no decreased breath sounds. She has no wheezes. Abdominal: Soft. Normal appearance, normal aorta and bowel sounds are normal. She exhibits no shifting dullness, no distension, no pulsatile liver, no fluid wave, no abdominal bruit, no ascites, no pulsatile midline mass and no mass. There is hepatosplenomegaly. There is tenderness in the right upper quadrant. There is no rigidity, no rebound, no guarding, no CVA tenderness, no tenderness at McBurney's point and negative Harris's sign. Musculoskeletal: Normal range of motion. Lymphadenopathy: Head (right side): Submandibular and occipital adenopathy present. No submental, no tonsillar, no preauricular and no posterior auricular adenopathy present. Head (left side): Occipital adenopathy present. No submental, no submandibular, no tonsillar, no preauricular and no posterior auricular adenopathy present. She has no cervical adenopathy. Right cervical: No superficial cervical, no deep cervical and no posterior cervical adenopathy present. Left cervical: No superficial cervical, no deep cervical and no posterior cervical adenopathy present. She has no axillary adenopathy. Right: No inguinal, no supraclavicular and no epitrochlear adenopathy present. Left: No inguinal, no supraclavicular and no epitrochlear adenopathy present. Neurological: She is alert and oriented to person, place, and time. She has normal motor skills, normal strength and intact cranial nerves. She has a normal Romberg Test. Gait normal. GCS score is 15. Skin: Skin is warm, dry and intact. No rash noted. She is not diaphoretic. Psychiatric: Mood, memory, affect and judgment normal. Nursing note and vitals reviewed. BP 126/88 Pulse 87 Temp 98.4 Ht 5' 5 (1.65m) Wt 233 lb 3.2 oz (105.8kg) BMI 38.81 kg/(m2). -I have reviewed and updated with the patient: allergies, VS, current medications, Past Medical History,Past Surgical History,Past Family Medical History, Past Social History. - Patient education provided today. - Follow up with PCP in 2-3 days if symptoms progress - Report to ED with any worsening symptoms or life-threatening concerns - Warning signs of worsening condition explained to patient - Patient left in stable condition after questions answered and patient verbalizes understanding ASSESSMENT/PLAN: 1. Hepatosplenomegaly - ICD9: 571.8, ICD10: R16.2 (primary diagnosis) - Results from recent CT scan. - Will check CMP with liver function - US ABD RT UPPER QUADRANT 2. Fatigue, unspecified type - ICD9: 780.79, ICD10: R53.83 - CBC + DIFF - COMP METABOLIC PANEL - IRON + TIBC - FERRITIN BLD - FOLATE SERUM - VITAMIN B12 BLOOD 3. Enlarged lymph nodes, unspecified - ICD9: 785.6, ICD10: R59.9 - CBC + DIFF - US CERVICAL LYMPH NODE MAPPING 4. Restless legs syndrome (RLS) - ICD9: 333.94, ICD10: G25.81 - Once CMP is completed, refill will be sent in 5. Postoperative hypothyroidism - ICD9: 244.0, ICD10: E89.0 - Instructed patient on importance of taking on an empty stomach either first thing in the morning or at bedtime. - check TSH today - continue current dose of Synthroid 0.175 mg, may have to adjust based on lab results - Follow up in 3 months 6. Type 2 diabetes mellitus without complication, without long-term current use of insulin (HCC) - ICD9: 250.00, ICD10: E11.9 Controlled. - Continue current medications - Check HgA1C, has an outstanding lipid panel ordered - Follow up in 3 months, sooner should any other issues arise. - BP goal of <130/80 - COMP METABOLIC PANEL *Due for eye exam Suad Archibald APRN.PAN WASHER HAND CNOV Observed: 03/10/2018 Status: COMPLETED Source: [place] 10:45 AM [facility] REPOSITORY Office Visit (AGFAMPLE) MAHI TAN ([id number]) 1975 F Date Time Provider Department 03/10/18 10:45 AM SUAD ARCHIBALD (OPERATOR TECHNICIAN-C) CHARLINE During your visit today, we recorded the following information about you: Temperature Pulse Blood pressure Weight 98.4 degrees 87/minute 126/88 105.8 kg Height 1.651 m Gabo McginnisJONY 03/10/2018 10:49 AM Signed Went to [facility] 03/01/18, thought she had kidney stones. Had CT done and was told her lymph nodes, and liver and spleen anlarged. Has been having lymph node pain in neck, as base of skull per pt. Gabo Mcginnis, JONY Archibald, TUBE CLEANING OPERATOR.PAN WASHER HAND 03/10/2018 1:43 PM Signed SUBJECTIVE: Mahi Tan is a 42 year old female who presents for an ER follow-up. She went to [facility] on 03/01/18 for right upper quadrant pain. Hx of a mirna. She had a CT of her abdomen/pelvis done and it showed hepatosplenomegaly and some mildly enlarged inguinal lymph nodes. Current complaints include worsening fatigue, RUQ pain, swollen lymph nodes in the back of her head, night sweats, and feeling hot and unable to cool off. Has had this RUQ pain in the past and her past liver function were WNL and the pain subsided. She was also having joint pain in the past, her sed rate was elevated, and was sent to a schedule announcer and had the initial blood work done which was unremarkable. Never followed-up. States she has had swollen lymph nodes in the past and has had a biopsy completed and it was bengin. Currently taking Ibuprofen and using ice for the pain. Mom- hx of Hodgkin's lymphoma Denies any recent illnesses or recent antibiotics BS at home have been FBS-115-120, Checks it in the morning, hasn't had any lows The history is provided by the patient. No paper products inspector was used. Fatigue This is a new problem. The current episode started in the past 7 days. The problem occurs daily. The problem has been gradually worsening. Associated symptoms include abdominal pain (RUQ), arthralgias, diaphoresis, fatigue, headaches (Back of head), nausea (Couple times a day, decreased appetite), swollen glands and weakness. Pertinent negatives include no anorexia, change in bowel habit, chest pain, chills, congestion, coughing, fever, joint swelling, myalgias, neck pain, numbness, rash, sore throat, urinary symptoms, vertigo, visual change or vomiting. Nothing aggravates the symptoms. She has tried rest and sleep for the symptoms. The treatment provided no relief. Abdominal Pain This is a new problem. The current episode started more than 2 days ago (5-6 days). The problem occurs daily. The pain is associated with eating. The pain is located in the RUQ. The quality of the pain is aching and dull. The pain is at a severity of 4/10. The pain is moderate. Associated symptoms include nausea (Couple times a day, decreased appetite), headaches (Back of head) and arthralgias. Pertinent negatives include anorexia, fever, belching, diarrhea, flatus, hematochezia, melena, vomiting, constipation, dysuria, frequency, hematuria and myalgias. The symptoms are aggravated by eating. Nothing relieves the symptoms. Past workup includes CT scan (In [facility] 03/01/18). Past workup does not include GI consult, ultrasound, surgery or barium enema. Her past medical history is significant for gallstones (Hx of mirna), GERD and irritable bowel syndrome. Her past medical history does not include PUD, ulcerative colitis or Crohn's disease. Thyroid Problem Presents for follow-up visit. Symptoms include diaphoresis, fatigue and heat intolerance. Patient reports no anxiety, cold intolerance, constipation, depressed mood, diarrhea, dry skin, hair loss, hoarse voice, leg swelling, menstrual problem, nail problem, palpitations, tremors, visual change, weight gain or weight loss. (Dry eyes, dry mouth) The symptoms have been worsening. PAST MEDICAL HISTORY Diagnosis Date - Allergic rhinitis - Anxiety - Asthma no issues for several years - Bipolar 2 disorder (HCC) 11/21/2011 - CAD (coronary artery disease) - Calculus of gallbladder without mention of cholecystitis or obstruction 08/24/2009 - Cervical high risk human papillomavirus (HPV) DNA test positive - Common cold - Depression, major - Depressive disorder Dr. Cornell- [facility] - Diabetes (HCC) - Diarrhea - Double vessel coronary artery disease 2 stents - Excessive or frequent menstruation Heavy periods Resolved - Female stress incontinence 01/13/2008 - Ganglion of joint 10/14/2007 - GERD (gastroesophageal reflux disease) - Hand joint pain - Hand pain - Hemorrhage of gastrointestinal tract, unspecified - History of intrauterine contraceptive device Mirena placed May 2015 Dr. Willy Schmid - Hyperlipidemia - Hypertension - Internal hemorrhoids without mention of complication - Irregular menstrual cycle Irregular periods Resolved - Irritable bowel syndrome Irritable bowel - Itching - Obesity - Obstructive sleep apnea - Onychomycosis - Other specified acquired hypothyroidism - Ovarian cystic mass 06/07/2010 - Panic attack 07/18/2010 - Papanicolaou smear of cervix with atypical squamous cells of undetermined significance (ASC-US) - Paresthesia of hand - PLANTAR Fasciitis 07/15/2007 - PMH - PAST MEDICAL HISTORY OF restless leg syndrome - PTSD (post-traumatic stress disorder) - Status post left heart catheterization 10/2014 PAST SURGICAL HISTORY Procedure Laterality Date - ANGIOPLASTY 11/23/14 [facility]-proximal LAD and proximal RCA 2 stents - CARDIAC CATHETERIZATION HX 11/20/14 [facility]-proximal RCA lesion - COLONOSCOP W/ OR W/O BRSH SPEC 06/09/14 Colonoscopy - COLONOSCOPY W/BX 08/13/07 - COLPOSCOPY (VAGINOSCOPY) 2006 Colposcopy - EXCIS PRIMARY GANGLION WRIST 11/04/07 LEFT WRIST, Dr. Alcantara - LAP CHOLECYSTECT/CHOLANGIOGRAPHY 09/05/2009 Normal IOC - LIGATE FALLOPIAN TUBE 10/1998 Tubal ligation, [facility] - PAST SURGICAL HISTORY OF Left 01/28/15 middle trigger finger release - S [facility]ING DANIELLE [facility]VEY [employer] 3415 2013 monarc - THYROIDECTOMY 01/1994 goiter no cancer Social History Substance Use Topics - Smoking status: Never Smoker - Smokeless tobacco: Never Used - Alcohol use No Family history reviewed. ALLERGIES Allergen Reactions - Benedryl [Diphenhyd* Makes her feel jittery - Doxycycline Vomiting - Imitrex [Sumatripta* chest pain - Phenergan [Prometha* Intolerance restless legs - Tramadol Intolerance Current Outpatient Prescriptions: famotidine (PEPCID) 20 mg tablet Take 1 tablet by mouth daily at bedtime. JANUVIA 100 mg tablet TAKE 1 TABLET EVERY DAY levothyroxine (SYNTHROID) 175 mcg tablet Take 1 tablet by mouth once daily. Blood-Glucose Meter misc 1 Units once daily. Lancets lancets Use as instructed. Preferred insurance brand. blood sugar diagnostic (ONETOUCH ULTRA TEST) test strip Use as instructed. Insurance preferred brand. gabapentin (NEURONTIN) 100 mg capsule TAKE 2 CAPSULES AT BEDTIME metFORMIN (GLUCOPHAGE) 1,000 mg tablet TAKE 1 TABLET TWICE DAILY WITH meals fluticasone (FLONASE) 50 mcg/actuation nasal spray Use 1 Harcourt in each nostril once daily. aspirin 81 mg chewable tablet Take 81 mg by mouth. carvedilol (COREG) 12.5 mg tablet Take 1 tablet by mouth twice daily. pantoprazole DR (PROTONIX) 40 mg tablet Take 1 tablet by mouth once daily. ferrous sulfate (IRON) 325 mg (65 mg iron) tablet Take 1 tablet by mouth daily with breakfast. albuterol HFA (VENTOLIN HFA) 90 mcg/actuation inhaler Inhale 2 Puffs as instructed every 4 hours as needed for Wheezing/Shortness of Breath. atorvastatin (LIPITOR) 20 mg tablet Take 1 tablet by mouth once daily. clopidogrel (PLAVIX) 75 mg tablet Take 1 tablet by mouth once daily. Cholecalciferol, Vitamin D3, 1,000 unit cap Take 1 capsule by mouth once daily. levonorgestrel (MIRENA) 20 mcg/24 hr (5 years) IUD 1 Each by INTRAUTERINE route continuous. blood sugar diagnostic (BLOOD GLUCOSE TEST) test strip Test blood sugar(s) one times daily. Dx: 250.00. Insulin: No Lancets lancets Test blood sugar(s) one times daily. Dx: 250.00. Insulin: No No current facility-administered medications for this visit. Review of Systems Constitutional: Positive for diaphoresis, fatigue and malaise/fatigue. Negative for chills, fever, weight gain and weight loss. HENT: Negative for congestion, ear discharge, ear pain, hearing loss, hoarse voice, nosebleeds, sinus pain, sore throat and tinnitus. Mouth dry Eyes: Negative. Dry eyes Respiratory: Negative. Negative for cough, shortness of breath, wheezing and stridor. Cardiovascular: Negative. Negative for chest pain and palpitations. Gastrointestinal: Positive for abdominal pain (RUQ) and nausea (Couple times a day, decreased appetite). Negative for anorexia, blood in stool, change in bowel habit, constipation, diarrhea, flatus, heartburn, hematochezia, melena and vomiting. Genitourinary: Negative. Negative for dysuria, frequency, hematuria and menstrual problem. Musculoskeletal: Positive for arthralgias and joint pain (Intermittent achiness). Negative for back pain, falls, joint swelling, myalgias and neck pain. Skin: Negative for itching and rash. Neurological: Positive for dizziness (Lightheaded when turning head, intermittently), weakness and headaches (Back of head). Negative for vertigo, tingling, tremors, sensory change, speech change, focal weakness, seizures, loss of consciousness and numbness. Endo/Heme/Allergies: Positive for heat intolerance. Negative for environmental allergies, cold intolerance and polydipsia. Does not bruise/bleed easily. Psychiatric/Behavioral: Negative for depression, hallucinations, memory loss, substance abuse and suicidal ideas. The patient is not nervous/anxious and does not have insomnia. Sleep interrupted since she's been off her Neurontin the past few days BP 126/88 Pulse 87 Temp 98.4 Ht 5' 5 (1.65m) Wt 233 lb 3.2 oz (105.8kg) BMI 38.81 kg/(m2). I reviewed past medical, surgical, social, and family histories today and updated chart. Allergies, chronic medications, and supplements were also reviewed. PHYSICAL EXAMINATION: Physical Exam Constitutional: She is oriented to person, place, and time and well-developed, well-nourished, and in no distress. Vital signs are normal. She does not have a sickly appearance. HENT: Head: Normocephalic and atraumatic. Right Ear: External ear and ear canal normal. Tympanic membrane is injected. Tympanic membrane is not bulging. No middle ear effusion. Left Ear: Tympanic membrane, external ear and ear canal normal. Nose: Nose normal. Mouth/Throat: Uvula is midline and oropharynx is clear and moist. Mucous membranes are dry. Eyes: Conjunctivae, EOM and lids are normal. Pupils are equal, round, and reactive to light. Right eye exhibits no discharge. Left eye exhibits no discharge. Neck: Trachea normal, normal range of motion and full passive range of motion without pain. Neck supple. No JVD present. No spinous process tenderness and no muscular tenderness present. Carotid bruit is not present. No neck rigidity. No tracheal deviation, no edema, no erythema and normal range of motion present. No thyroid mass and no thyromegaly present. Cardiovascular: Normal rate, regular rhythm, normal heart sounds and intact distal pulses. Pulmonary/Chest: Effort normal and breath sounds normal. No respiratory distress. She has no decreased breath sounds. She has no wheezes. Abdominal: Soft. Normal appearance, normal aorta and bowel sounds are normal. She exhibits no shifting dullness, no distension, no pulsatile liver, no fluid wave, no abdominal bruit, no ascites, no pulsatile midline mass and no mass. There is hepatosplenomegaly. There is tenderness in the right upper quadrant. There is no rigidity, no rebound, no guarding, no CVA tenderness, no tenderness at McBurney's point and negative Harris's sign. Musculoskeletal: Normal range of motion. Lymphadenopathy: Head (right side): Submandibular and occipital adenopathy present. No submental, no tonsillar, no preauricular and no posterior auricular adenopathy present. Head (left side): Occipital adenopathy present. No submental, no submandibular, no tonsillar, no preauricular and no posterior auricular adenopathy present. She has no cervical adenopathy. Right cervical: No superficial cervical, no deep cervical and no posterior cervical adenopathy present. Left cervical: No superficial cervical, no deep cervical and no posterior cervical adenopathy present. She has no axillary adenopathy. Right: No inguinal, no supraclavicular and no epitrochlear adenopathy present. Left: No inguinal, no supraclavicular and no epitrochlear adenopathy present. Neurological: She is alert and oriented to person, place, and time. She has normal motor skills, normal strength and intact cranial nerves. She has a normal Romberg Test. Gait normal. GCS score is 15. Skin: Skin is warm, dry and intact. No rash noted. She is not diaphoretic. Psychiatric: Mood, memory, affect and judgment normal. Nursing note and vitals reviewed. BP 126/88 Pulse 87 Temp 98.4 Ht 5' 5 (1.65m) Wt 233 lb 3.2 oz (105.8kg) BMI 38.81 kg/(m2). -I have reviewed and updated with the patient: allergies, VS, current medications, Past Medical History,Past Surgical History,Past Family Medical History, Past Social History. - Patient education provided today. - Follow up with PCP in 2-3 days if symptoms progress - Report to ED with any worsening symptoms or life-threatening concerns - Warning signs of worsening condition explained to patient - Patient left in stable condition after questions answered and patient verbalizes understanding ASSESSMENT/PLAN: 1. Hepatosplenomegaly - ICD9: 571.8, ICD10: R16.2 (primary diagnosis) - Results from recent CT scan. - Will check CMP with liver function - US ABD RT UPPER QUADRANT 2. Fatigue, unspecified type - ICD9: 780.79, ICD10: R53.83 - CBC + DIFF - COMP METABOLIC PANEL - IRON + TIBC - FERRITIN BLD - FOLATE SERUM - VITAMIN B12 BLOOD 3. Enlarged lymph nodes, unspecified - ICD9: 785.6, ICD10: R59.9 - CBC + DIFF - US CERVICAL LYMPH NODE MAPPING 4. Restless legs syndrome (RLS) - ICD9: 333.94, ICD10: G25.81 - Once CMP is completed, refill will be sent in 5. Postoperative hypothyroidism - ICD9: 244.0, ICD10: E89.0 - Instructed patient on importance of taking on an empty stomach either first thing in the morning or at bedtime. - check TSH today - continue current dose of Synthroid 0.175 mg, may have to adjust based on lab results - Follow up in 3 months 6. Type 2 diabetes mellitus without complication, without long-term current use of insulin (HCC) - ICD9: 250.00, ICD10: E11.9 Controlled. - Continue current medications - Check HgA1C, has an outstanding lipid panel ordered - Follow up in 3 months, sooner should any other issues arise. - BP goal of <130/80 - COMP METABOLIC PANEL *Due for eye exam Suad Archibald APRN.PAN WASHER HAND Suad Archibald APRN.[facility] 03/10/2018 11:33 AM Signed - Blood work -Schedule US - F/U in 3 months Suad Archibald APRN.[facility] 03/10/2018 2:23 PM Signed Addended by: SUAD MORELOS on: 03/10/2018 02:23 PM Modules accepted: Orders Referring Provider: SUAD ARCHIBALD (SMITHA) [[id number]] Allergies As of Date: 03/10/2018 Noted Allergy Reaction BENEDRYL (DIPHENHYDRAMINE) 07/01/2009 Comments: Makes her feel jittery DOXYCYCLINE 08/13/2006 11 - Vomiting IMITREX (SUMATRIPTAN SUCCINATE) 12/06/2009 Comments: chest pain PHENERGAN (PROMETHAZINE HCL) 06/14/2010 5 - Intolerance Comments: restless legs TRAMADOL 07/05/2017 5 - Intolerance Date Reviewed: 03/10/2018 Reviewed by: Suad Archibald (Fnp-C) - Fully Assessed Reason for Visit: ED Follow-up [821] Primary Visit Diagnosis:Hepatosplenomegaly [R16.2] Other Visit Diagnoses:Fatigue, unspecified type [R53.83] Enlarged lymph nodes, unspecified [R59.9] Restless legs syndrome (RLS) [G25.81] Postoperative hypothyroidism [E89.0] Type 2 diabetes mellitus without complication, without long-term current use of insulin (HCC) [E11.9] Order(s):CBC + DIFF [SQCBCDIF] Order #: [id number] FUTURE COMP METABOLIC PANEL [SQCMP] Order #: [id number] FUTURE IRON + TIBC [SQIRON] Order #: [id number] FUTURE FERRITIN BLD [SQFERR] Order #: [id number] FUTURE FOLATE SERUM [SQSERFOL] Order #: [id number] FUTURE VITAMIN B12 BLOOD [SQB12] Order #: [id number] FUTURE US HEAD/NECK SOFT TISSUE OTHER [[id number]] Order #: [id number] FUTURE US ABDOMEN COMPLETE [4062418] Order #: [id number] FUTURE Prescriptions as of 03/10/2018 Sig: FAMOTIDINE 20 MG TABLET Take 1 tablet by mouth daily * JANUVIA 100 MG TABLET TAKE 1 TABLET EVERY DAY LEVOTHYROXINE 175 MCG TABLET Take 1 tablet by mouth once d* BLOOD-GLUCOSE METER 1 Units once daily. LANCETS Use as instructed. Preferred * BLOOD SUGAR DIAGNOSTIC STRIPS Use as instructed. Insurance * GABAPENTIN 100 MG CAPSULE TAKE 2 CAPSULES AT BEDTIME METFORMIN 1,000 MG TABLET TAKE 1 TABLET TWICE DAILY WIT* FLUTICASONE 50 MCG/ACTUATION * Use 1 Harcourt in each nostril o* ASPIRIN 81 MG CHEWABLE TABLET Take 81 mg by mouth. CARVEDILOL 12.5 MG TABLET Take 1 tablet by mouth twice * PANTOPRAZOLE 40 MG TABLET,DEL* Take 1 tablet by mouth once d* FERROUS SULFATE 325 MG (65 MG* Take 1 tablet by mouth daily * ALBUTEROL SULFATE HFA 90 MCG/* Inhale 2 Puffs as instructed * ATORVASTATIN 20 MG TABLET Take 1 tablet by mouth once d* CLOPIDOGREL 75 MG TABLET Take 1 tablet by mouth once d* CHOLECALCIFEROL (VITAMIN D3) * Take 1 capsule by mouth once * LEVONORGESTREL 20 MCG/24 HR (* 1 Each by INTRAUTERINE route * BLOOD SUGAR DIAGNOSTIC STRIPS Test blood sugar(s) one times* LANCETS Test blood sugar(s) one times* Problem List As Of Date 03/10/2018 Noted Resolved Chest pain, unspecified [R07.9] INVALID FOR*11/21/2011 Essential hypertension, benign [I10] INVALID FOR*11/21/2011 Shortness of breath [R06.02] INVALID FOR*11/21/2011 Restless legs syndrome (RLS) [G25.81] INVALID FOR* Insomnia [G47.00] INVALID FOR* PLANTAR Fasciitis [M72.2] INVALID FOR*11/21/2011 Diarrhea [R19.7] INVALID FOR*09/29/2014 Hemorrhage of gastrointestinal tract [K92.2] INVALID FOR* Internal hemorrhoids without mention of complic*INVALID FOR*11/21/2011 Ganglion of joint [M67.40] INVALID FOR*11/21/2011 Irritable bowel syndrome [K58.9] INVALID FOR* PAP SMEAR OF CERVIX W ASCUS [R87.610] INVALID FOR* Cervical high risk human papillomavirus (HPV) D*INVALID FOR* Female stress incontinence [N39.3] INVALID FOR* Pain in limb [M79.609] INVALID FOR*11/21/2011 Calcaneal spur [M77.30] INVALID FOR*11/21/2011 Depressive disorder, not elsewhere classified [*INVALID FOR*11/21/2011 Microscopic hematuria [R31.29] INVALID FOR*11/21/2011 Pain in joint, pelvic region and thigh [M25.559]INVALID FOR*11/21/2011 Cholelithiasis NOS [K80.20] INVALID FOR*11/21/2011 Hypothyroid [E03.9] INVALID FOR* Ovarian cystic mass [N83.209] INVALID FOR*11/21/2011 Depression, major [F32.9] 11/21/2011 Panic attack [F41.0] INVALID FOR*11/21/2011 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] INVALID FOR* Backache, unspecified [M54.9] INVALID FOR*09/29/2014 Cervicalgia [M54.2] INVALID FOR*09/29/2014 Bipolar 2 disorder (HCC) [F31.81] INVALID FOR* Dysuria [R30.0] INVALID FOR*09/29/2014 Hematuria [R31.9] INVALID FOR* Urinary tract infection [N39.0] INVALID FOR*09/29/2014 Urgency of urination [R39.15] INVALID FOR*09/29/2014 Frequency of urination [R35.0] INVALID FOR*09/29/2014 Low back pain [M54.5] INVALID FOR* Family history of ovarian cancer [Z80.41] INVALID FOR* LADONNA (stress urinary incontinence, female) [N39.*INVALID FOR* Cystocele [RGP7352] INVALID FOR* Type 2 diabetes mellitus without complication (*INVALID FOR* Trigger middle finger of left hand [M65.332] INVALID FOR* Coronary atherosclerosis [I25.10] INVALID FOR* More... Essential hypertension [I10] INVALID FOR* Morbid obesity with BMI of 40.0-44.9, adult (HC*INVALID FOR* GERD (gastroesophageal reflux disease) [K21.9] INVALID FOR* TONIO (obstructive sleep apnea) [G47.33] INVALID FOR* More... Iron deficiency concern [E61.1] INVALID FOR* Presence of drug coated stent in LAD coronary a*INVALID FOR* Family history of ischemic heart disease [Z82.4*INVALID FOR* Presence of drug coated stent in right coronary*INVALID FOR* Vitamin D insufficiency [E55.9] INVALID FOR* Sprain of lumbar region-[facility] [S33.5XXA] INVALID FOR* Anterior cervical lymphadenopathy [R59.0] INVALID FOR* More... Axillary lymphadenopathy [R59.0] INVALID FOR*08/14/2016 More... Onychomycosis [B35.1] INVALID FOR* Mild intermittent asthma without complication [*INVALID FOR* Prolonged QT interval [R94.31] INVALID FOR* Chronic pain of left knee [M25.562, G89.29] INVALID FOR* Iron deficiency anemia [D50.9] INVALID FOR* Gastroesophageal reflux disease [K21.9] INVALID FOR* Family history of coronary artery disease [Z82.*INVALID FOR* Hyperlipidemia [E78.5] INVALID FOR* Obesity, Class II, BMI 35-39.9 E66.9 [E66.9] INVALID FOR* Asthma [J45.909] INVALID FOR* History of cholecystectomy [Z90.49] INVALID FOR* History of thyroidectomy [E89.0] INVALID FOR* sign painter (current) use of antithrombotics/anti*INVALID FOR* alf (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 [Z79.82] INVALID FOR* 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*INVALID FOR* Other instructions from your clinician: - Blood work -Schedule US - F/U in 3 months Visit Notes: >> Gabo (Jony) Ras SatMar 10, 2018 10:45 AM Status: Signed Went to [facility] 03/01/18, thought she had kidney stones. Had CT done and was told her lymph nodes, and liver and spleen anlarged. Has been having lymph node pain in neck, as base of skull per pt. Gabo Mcginnis, JONY Disposition: Return in about 3 months (around 06/10/2018) for DM follow-up. Follow-up and Disposition History Recorded Letter Text [address] [address] Dept Dept Suad Archibald APRN.PAN WASHER HAND [facility] -[address] [place] [id number] - - March 10, 2018 Mahi Tan [address] [facility] [id number] 1975 To Whom It May Concern: This is to certify that Mahi has been under my care and was seen in the office 03/10/18. If you have further questions regarding this patient's health status, please contact our office. Sincerely, Suad Archibald CNP (Signed electronically to expedite mailing) Encounter Status:Closed by SAUD MORELOS on 03/10/18 OBSOLETE Observed: 03/10/2018 Status: COMPLETED Source: [place] 12:00 AM [facility] REPOSITORY Refill (AGFAMPLE) MAHI TAN ([id number]) 1975 F Date Time Provider Department 03/10/18 SUAD ARCHIBALD (OPERATOR TECHNICIAN-CRita OLIVIER During your visit today, we recorded the following information about you: Gabo Mcginnis CMA 03/10/2018 12:38 PM Signed Last rx 01/22/18. Had bloodwork done per BQ request after her OV today. Patient phones requesting refills as follows: Pending Prescriptions Disp Refills GABAPENTIN 100 MG CAPSULE 60 capsule 0 Sig: Take 2 capsules by mouth daily at bedtime for 30 days. ESPINOZA: No Please review and advise. Gabo Mcginnis CMA Allergies As of Date: 03/10/2018 Noted Allergy Reaction BENEDRYL (DIPHENHYDRAMINE) 07/01/2009 Comments: Makes her feel jittery DOXYCYCLINE 08/13/2006 11 - Vomiting IMITREX (SUMATRIPTAN SUCCINATE) 12/06/2009 Comments: chest pain PHENERGAN (PROMETHAZINE HCL) 06/14/2010 5 - Intolerance Comments: restless legs TRAMADOL 07/05/2017 5 - Intolerance Date Reviewed: 03/10/2018 Reviewed by: Suad GuilloryEr Medical Technician-CRita Archibald - Fully Assessed Reason for Visit: Refill Request [94] Visit Diagnosis:Restless leg syndrome [G25.81] Order(s):gabapentin (NEURONTIN) 100 mg capsuleTake 2 capsules by mouth daily at bedtime for 30 days.Disp: 60 capsuleRfl: 0 Prescriptions as of 03/10/2018 Sig: GABAPENTIN 100 MG CAPSULE Take 2 capsules by mouth janay* FAMOTIDINE 20 MG TABLET Take 1 tablet by mouth daily * JANUVIA 100 MG TABLET TAKE 1 TABLET EVERY DAY LEVOTHYROXINE 175 MCG TABLET Take 1 tablet by mouth once d* BLOOD-GLUCOSE METER 1 Units once daily. LANCETS Use as instructed. Preferred * BLOOD SUGAR DIAGNOSTIC STRIPS Use as instructed. Insurance * METFORMIN 1,000 MG TABLET TAKE 1 TABLET TWICE DAILY WIT* FLUTICASONE 50 MCG/ACTUATION * Use 1 Harcourt in each nostril o* ASPIRIN 81 MG CHEWABLE TABLET Take 81 mg by mouth. CARVEDILOL 12.5 MG TABLET Take 1 tablet by mouth twice * PANTOPRAZOLE 40 MG TABLET,DEL* Take 1 tablet by mouth once d* FERROUS SULFATE 325 MG (65 MG* Take 1 tablet by mouth daily * ALBUTEROL SULFATE HFA 90 MCG/* Inhale 2 Puffs as instructed * ATORVASTATIN 20 MG TABLET Take 1 tablet by mouth once d* CLOPIDOGREL 75 MG TABLET Take 1 tablet by mouth once d* CHOLECALCIFEROL (VITAMIN D3) * Take 1 capsule by mouth once * LEVONORGESTREL 20 MCG/24 HR (* 1 Each by INTRAUTERINE route * BLOOD SUGAR DIAGNOSTIC STRIPS Test blood sugar(s) one times* LANCETS Test blood sugar(s) one times* Problem List As Of Date 03/10/2018 Noted Resolved Chest pain, unspecified [R07.9] INVALID FOR*11/21/2011 Essential hypertension, benign [I10] INVALID FOR*11/21/2011 Shortness of breath [R06.02] INVALID FOR*11/21/2011 Restless legs syndrome (RLS) [G25.81] INVALID FOR* Insomnia [G47.00] INVALID FOR* PLANTAR Fasciitis [M72.2] INVALID FOR*11/21/2011 Diarrhea [R19.7] INVALID FOR*09/29/2014 Hemorrhage of gastrointestinal tract [K92.2] INVALID FOR* Internal hemorrhoids without mention of complic*INVALID FOR*11/21/2011 Ganglion of joint [M67.40] INVALID FOR*11/21/2011 Irritable bowel syndrome [K58.9] INVALID FOR* PAP SMEAR OF CERVIX W ASCUS [R87.610] INVALID FOR* Cervical high risk human papillomavirus (HPV) D*INVALID FOR* Female stress incontinence [N39.3] INVALID FOR* Pain in limb [M79.609] INVALID FOR*11/21/2011 Calcaneal spur [M77.30] INVALID FOR*11/21/2011 Depressive disorder, not elsewhere classified [*INVALID FOR*11/21/2011 Microscopic hematuria [R31.29] INVALID FOR*11/21/2011 Pain in joint, pelvic region and thigh [M25.559]INVALID FOR*11/21/2011 Cholelithiasis NOS [K80.20] INVALID FOR*11/21/2011 Hypothyroid [E03.9] INVALID FOR* Ovarian cystic mass [N83.209] INVALID FOR*11/21/2011 Depression, major [F32.9] 11/21/2011 Panic attack [F41.0] INVALID FOR*11/21/2011 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] INVALID FOR* Backache, unspecified [M54.9] INVALID FOR*09/29/2014 Cervicalgia [M54.2] INVALID FOR*09/29/2014 Bipolar 2 disorder (HCC) [F31.81] INVALID FOR* Dysuria [R30.0] INVALID FOR*09/29/2014 Hematuria [R31.9] INVALID FOR* Urinary tract infection [N39.0] INVALID FOR*09/29/2014 Urgency of urination [R39.15] INVALID FOR*09/29/2014 Frequency of urination [R35.0] INVALID FOR*09/29/2014 Low back pain [M54.5] INVALID FOR* Family history of ovarian cancer [Z80.41] INVALID FOR* LADONNA (stress urinary incontinence, female) [N39.*INVALID FOR* Cystocele [ZDB1372] INVALID FOR* Type 2 diabetes mellitus without complication (*INVALID FOR* Trigger middle finger of left hand [M65.332] INVALID FOR* Coronary atherosclerosis [I25.10] INVALID FOR* More... Essential hypertension [I10] INVALID FOR* Morbid obesity with BMI of 40.0-44.9, adult (HC*INVALID FOR* GERD (gastroesophageal reflux disease) [K21.9] INVALID FOR* TONIO (obstructive sleep apnea) [G47.33] INVALID FOR* More... Iron deficiency concern [E61.1] INVALID FOR* Presence of drug coated stent in LAD coronary a*INVALID FOR* Family history of ischemic heart disease [Z82.4*INVALID FOR* Presence of drug coated stent in right coronary*INVALID FOR* Vitamin D insufficiency [E55.9] INVALID FOR* Sprain of lumbar region-BW [S33.5XXA] INVALID FOR* Anterior cervical lymphadenopathy [R59.0] INVALID FOR* More... Axillary lymphadenopathy [R59.0] INVALID FOR*08/14/2016 More... Onychomycosis [B35.1] INVALID FOR* Mild intermittent asthma without complication [*INVALID FOR* Prolonged QT interval [R94.31] INVALID FOR* Chronic pain of left knee [M25.562, G89.29] INVALID FOR* Iron deficiency anemia [D50.9] INVALID FOR* Gastroesophageal reflux disease [K21.9] INVALID FOR* Family history of coronary artery disease [Z82.*INVALID FOR* Hyperlipidemia [E78.5] INVALID FOR* Obesity, Class II, BMI 35-39.9 E66.9 [E66.9] INVALID FOR* Asthma [J45.909] INVALID FOR* History of cholecystectomy [Z90.49] INVALID FOR* History of thyroidectomy [E89.0] INVALID FOR* sign painter (current) use of antithrombotics/anti*INVALID FOR* sign painter (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 [Z79.82] INVALID FOR* 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*INVALID FOR* Prescriptions ordered this encounter Disp Refills Start End GABAPENTIN 100 MG CAPSULE 60 c* 0 03/10/2018 04/09/2018 Route: ORAL Sig: Take 2 capsules by mouth daily at bedtime for 30 days. Medications Discontinued During This Encounter gabapentin (NEURONTIN) 100 mg capsule 60 c* 0 01/22/2018 03/10/2018 Cmt: This patient participates in our Sync Your Meds program to help increase their medication adherence. We are requesting this refill a month in advance so we can have it on file for next month's pickup date. Th Sig: TAKE 2 CAPSULES AT BEDTIME Disc: Reason for discontinue is not on file. Encounter Status:Closed by SUAD MORELOS on 03/10/18 OBSOLETE Observed: 03/03/2018 Status: COMPLETED Source: [place] 12:00 AM [facility] REPOSITORY Refill (AGFAMPLE) MAHI TAN ([id number]) 1975 F Date Time Provider Department 03/03/18 LESTER LOPEZ ([facility]) CHARLINE During your visit today, we recorded the following information about you: Raji Merlos CMA 03/03/2018 4:14 PM Signed Last seen 01/27/18. Pharmacy electronically requests the following refill(s) Pending Prescriptions Disp Refills FAMOTIDINE 20 MG TABLET 30 tablet 4 Sig: Take 1 tablet by mouth daily at bedtime. ESPINOZA: No GABAPENTIN 100 MG CAPSULE 60 capsule 0 Sig: Take 2 capsules by mouth daily at bedtime for 30 days. ESPINOZA: No Raji Merlos, [facility] Suad Archibald APRN.PAN WASHER HAND 03/03/2018 5:11 PM Signed Please contact the patient that she needs to complete the blood work from 06/17/17 ([facility]) before she can have the Gabapentin refilled. Thank you. Gabo JONY Mcginnis 03/10/2018 10:51 AM Signed Pt advised at her OV today to get labs before rx can be filled. Gabo Ras [facility] Allergies As of Date: 03/03/2018 Noted Allergy Reaction BENEDRYL (DIPHENHYDRAMINE) 07/01/2009 Comments: Makes her feel jittery DOXYCYCLINE 08/13/2006 11 - Vomiting IMITREX (SUMATRIPTAN SUCCINATE) 12/06/2009 Comments: chest pain PHENERGAN (PROMETHAZINE HCL) 06/14/2010 5 - Intolerance Comments: restless legs TRAMADOL 07/05/2017 5 - Intolerance Date Reviewed: 01/29/2018 Reviewed by: Lester Rivers ([facility]) Mayll - Fully Assessed Reason for Visit: Refill Request [94] Primary Visit Diagnosis:Gastroesophageal reflux disease, esophagitis presence not specified [K21.9] Other Visit Diagnosis:Restless leg syndrome [G25.81] Order(s):famotidine (PEPCID) 20 mg tabletTake 1 tablet by mouth daily at bedtime.Disp: 30 tabletRfl: 4 Prescriptions as of 03/03/2018 Sig: FAMOTIDINE 20 MG TABLET Take 1 tablet by mouth daily * JANUVIA 100 MG TABLET TAKE 1 TABLET EVERY DAY LEVOTHYROXINE 175 MCG TABLET Take 1 tablet by mouth once d* BLOOD-GLUCOSE METER 1 Units once daily. LANCETS Use as instructed. Preferred * BLOOD SUGAR DIAGNOSTIC STRIPS Use as instructed. Insurance * GABAPENTIN 100 MG CAPSULE TAKE 2 CAPSULES AT BEDTIME METFORMIN 1,000 MG TABLET TAKE 1 TABLET TWICE DAILY WIT* FLUTICASONE 50 MCG/ACTUATION * Use 1 Harcourt in each nostril o* ASPIRIN 81 MG CHEWABLE TABLET Take 81 mg by mouth. CARVEDILOL 12.5 MG TABLET Take 1 tablet by mouth twice * PANTOPRAZOLE 40 MG TABLET,DEL* Take 1 tablet by mouth once d* FERROUS SULFATE 325 MG (65 MG* Take 1 tablet by mouth daily * ALBUTEROL SULFATE HFA 90 MCG/* Inhale 2 Puffs as instructed * ATORVASTATIN 20 MG TABLET Take 1 tablet by mouth once d* CLOPIDOGREL 75 MG TABLET Take 1 tablet by mouth once d* CHOLECALCIFEROL (VITAMIN D3) * Take 1 capsule by mouth once * LEVONORGESTREL 20 MCG/24 HR (* 1 Each by INTRAUTERINE route * BLOOD SUGAR DIAGNOSTIC STRIPS Test blood sugar(s) one times* LANCETS Test blood sugar(s) one times* Problem List As Of Date 03/03/2018 Noted Resolved Chest pain, unspecified [R07.9] INVALID FOR*11/21/2011 Essential hypertension, benign [I10] INVALID FOR*11/21/2011 Shortness of breath [R06.02] INVALID FOR*11/21/2011 Restless legs syndrome (RLS) [G25.81] INVALID FOR* Insomnia [G47.00] INVALID FOR* PLANTAR Fasciitis [M72.2] INVALID FOR*11/21/2011 Diarrhea [R19.7] INVALID FOR*09/29/2014 Hemorrhage of gastrointestinal tract [K92.2] INVALID FOR* Internal hemorrhoids without mention of complic*INVALID FOR*11/21/2011 Ganglion of joint [M67.40] INVALID FOR*11/21/2011 Irritable bowel syndrome [K58.9] INVALID FOR* PAP SMEAR OF CERVIX W ASCUS [R87.610] INVALID FOR* Cervical high risk human papillomavirus (HPV) D*INVALID FOR* Female stress incontinence [N39.3] INVALID FOR* Pain in limb [M79.609] INVALID FOR*11/21/2011 Calcaneal spur [M77.30] INVALID FOR*11/21/2011 Depressive disorder, not elsewhere classified [*INVALID FOR*11/21/2011 Microscopic hematuria [R31.29] INVALID FOR*11/21/2011 Pain in joint, pelvic region and thigh [M25.559]INVALID FOR*11/21/2011 Cholelithiasis NOS [K80.20] INVALID FOR*11/21/2011 Hypothyroid [E03.9] INVALID FOR* Ovarian cystic mass [N83.209] INVALID FOR*11/21/2011 Depression, major [F32.9] 11/21/2011 Panic attack [F41.0] INVALID FOR*11/21/2011 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] INVALID FOR* Backache, unspecified [M54.9] INVALID FOR*09/29/2014 Cervicalgia [M54.2] INVALID FOR*09/29/2014 Bipolar 2 disorder (HCC) [F31.81] INVALID FOR* Dysuria [R30.0] INVALID FOR*09/29/2014 Hematuria [R31.9] INVALID FOR* Urinary tract infection [N39.0] INVALID FOR*09/29/2014 Urgency of urination [R39.15] INVALID FOR*09/29/2014 Frequency of urination [R35.0] INVALID FOR*09/29/2014 Low back pain [M54.5] INVALID FOR* Family history of ovarian cancer [Z80.41] INVALID FOR* LADONNA (stress urinary incontinence, female) [N39.*INVALID FOR* Cystocele [IQY5527] INVALID FOR* Type 2 diabetes mellitus without complication (*INVALID FOR* Trigger middle finger of left hand [M65.332] INVALID FOR* Coronary atherosclerosis [I25.10] INVALID FOR* More... Essential hypertension [I10] INVALID FOR* Morbid obesity with BMI of 40.0-44.9, adult (HC*INVALID FOR* GERD (gastroesophageal reflux disease) [K21.9] INVALID FOR* TONIO (obstructive sleep apnea) [G47.33] INVALID FOR* More... Iron deficiency concern [E61.1] INVALID FOR* Presence of drug coated stent in LAD coronary a*INVALID FOR* Family history of ischemic heart disease [Z82.4*INVALID FOR* Presence of drug coated stent in right coronary*INVALID FOR* Vitamin D insufficiency [E55.9] INVALID FOR* Sprain of lumbar region-[facility] [S33.5XXA] INVALID FOR* Anterior cervical lymphadenopathy [R59.0] INVALID FOR* More... Axillary lymphadenopathy [R59.0] INVALID FOR*08/14/2016 More... Onychomycosis [B35.1] INVALID FOR* Mild intermittent asthma without complication [*INVALID FOR* Prolonged QT interval [R94.31] INVALID FOR* Chronic pain of left knee [M25.562, G89.29] INVALID FOR* Iron deficiency anemia [D50.9] INVALID FOR* Gastroesophageal reflux disease [K21.9] INVALID FOR* Family history of coronary artery disease [Z82.*INVALID FOR* Hyperlipidemia [E78.5] INVALID FOR* Obesity, Class II, BMI 35-39.9 E66.9 [E66.9] INVALID FOR* Asthma [J45.909] INVALID FOR* History of cholecystectomy [Z90.49] INVALID FOR* History of thyroidectomy [E89.0] INVALID FOR* alf (current) use of antithrombotics/anti*INVALID FOR* alf (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 [Z79.82] INVALID FOR* alf (current) use of oral hypoglycemic dr*INVALID FOR* Prescriptions ordered this encounter Disp Refills Start End FAMOTIDINE 20 MG TABLET 30 t* 4 03/03/2018 Cmt: Med-sync patient. If too soon, we will put new RX on hold for next cycle. Route: ORAL Sig: Take 1 tablet by mouth daily at bedtime. Medications Discontinued During This Encounter famotidine (PEPCID) 20 mg tablet 30 t* 5 08/23/2017 03/03/2018 Cmt: Med-sync patient. If too soon, we will put new RX on hold for next cycle. Route: ORAL Sig: Take 1 tablet by mouth daily at bedtime. Disc: Reason for discontinue is not on file. Encounter Status:Closed by ADAN VAZ on 03/10/18 ABDOMEN/PELVIS WITHOUT Observed: 03/02/2018 Status: F Source: HALSEY CONT 6:53 PM [facility] REPOSITORY [facility] Imaging Services [address] [place] [id number] Abdomen/Pelvis without Cont MR#: [id number] Acct: [id number] Name: MAHI TAN Rep #: [id number] : 1975 F 42 From: Mauri Velásquez MD PCP: Lester Lopez NP-Tita Status: REG ER Study: Abdomen/Pelvis without Cont Date of Exam: 03/01/18 Exam# [id number] Ordering Dr: Everett Price MD STUDY: CT ABDOMEN AND PELVIS WITHOUT CONTRAST REASON FOR EXAM: Female, 42 years old. Right flank pain. History of kidney stones, diabetes, coronary artery stent, IUD. RADIATION DOSAGE (If Supplied By Facility): CTDIvol = ( 22.25 ) mGy, DLP = ( 1172.81 ) mGycm TECHNIQUE: Transaxial images were obtained from the dome of the diaphragm to the symphysis pubis without oral contrast, and without intravenous contrast. Sagittal and coronal images were reconstructed. Individualized dose optimization techniques were used for this CT. COMPARISON: None. FINDINGS: There is minor subsegmental atelectasis or scarring in the anterior lung bases. The heart size is upper normal. There are atherosclerotic calcifications and/or endovascular stent in the right coronary artery. There is hepatomegaly with the right lobe measuring just over 23 cm in height. The portal vein diameter is 18 mm. There is non- visualization of the gallbladder, which may be secondary to either contraction or a prior cholecystectomy. The diameter of the mid to distal common bile duct is 6.5 mm. There is mild splenomegaly, measuring 16.1 x 8.3 x 13 cm. Normal pancreas. Normal bilateral adrenal glands. Normal right kidney. Normal left kidney. No hydronephrosis. Normal visualized stomach. Normal small intestine. There are 1-2 small sigmoid colonic diverticula. No pericolonic inflammatory stranding. The appendix is visualized and appears normal. There is mild atherosclerotic calcification of the abdominal aorta and right common iliac artery, without a demonstrated aneurysm. Normal inferior vena cava. There are a several nonspecific periaortic lymph nodes of the retroperitoneum, and a 2.4 x 1.0 x 1.2 cm node near the aortic bifurcation. There is a 2.2 x 1.1 x 0.65 cm right common iliac node, and just above this a lymph node measuring 1.8 x 1.05 x 0.7 cm. There are a few borderline enlarged lymph nodes in the inguinal tissues. Incidental note of a 10 mm diameter ectasia of the right gonadal vein. Normal urinary bladder. There is a T-shaped intrauterine device in the endometrial cavity of the normal size, anteverted uterus. The ovaries are unremarkable There is a very small umbilical hernia containing fat. There are mild degenerative changes of the visualized breast spine, as well as the right lumbosacral facet articulation. CT/Abdomen/Pelvis without Cont IMPRESSION: 1. Hepatosplenomegaly. 2. A few borderline mildly enlarged periaortic retroperitoneal lymph nodes and inguinal lymph nodes identified. 3. The gallbladder is not visualized, and may be surgically absent. 4. Atherosclerotic calcifications of the right coronary artery, lower abdominal aorta, and right common iliac artery. 5. 1-2 small sigmoid colon diverticula seen without acute diverticulitis. No sign of bowel obstruction. The appendix is normal. 6. No nephrolithiasis or hydronephrosis. 7. T-shaped IUD in the endometrial cavity of the uterus. The ovaries are normal. Electronically Signed: Fer Velásquez MD at 20:52 EDT , Service support , CC: HALLIE Lopez; Azalea Price MD Gas Plant Technician: Signed URINALYSIS, COMPLETE Collected: 03/01/2018 Status: F Source: BECKY 6:25 PM [facility] REPOSITORY Order Comment: RESULT(S) PREVIOUSLY REPORTED ON MANUAL REQUISITION DURING DOWNTIME. ORDERED FROM DT REQUISITION How was Urine Obtained? CLEAN CATCH TYPE CODE TESTS RESULT OUT OF RANGE REFERENCE UNITS LAB L400.3000 Yellow COLOR Normal Yellow LAB L400.3050 Clear Sl Normal CLARITY Cldy LAB L400.3200 Normal mg/dl Normal GLUCOSE, UR NEGATIVE LAB L400.3300 Negative mg/dL Normal BILIRUBIN URINE Negative LAB L400.3400 Negative mg/dl Normal KETONE UR Negative LAB L400.3465 1.002-1.030 Normal SP.GR. DIPSTX 1.020 LAB L400.3550 5.0 - 8.0 pH UR Normal 6.0 LAB L400.3600 Negative mg/dl High PROT 15 DIPSTX LAB L400.3700 Normal mg/dl Normal UROBILI Normal LAB L400.3750 Negative Normal NITRITE UR Negative LAB L400.3780 Negative /ul High 25 OCCULT BLOOD-UR LAB L400.3800 Negative /ul High LEUK ESTERASE 100 LAB L400.4050 0-5 /hpf WBC Normal 5-10 SEEN LAB L400.4100 0-5 /hpf Normal RBC-UA 0-5 SEEN LAB L400.4150 5-10 /hpf SQUAM Normal EPI 5-10 SEEN LAB L400.4300 None Seen /hpf 0 Normal BACTERIA SEEN LAB L400.4350 <or=2+ /hpf 1+ Normal MUCUS, URINE LAB L400.5200 None Seen /hpf Normal YEAST-URINE RARE Performed By: #### L400.0001 #### [facility] [address] [place], [address] OBSOLETE Observed: 01/28/2018 Status: COMPLETED Source: [place] 12:00 AM [facility] REPOSITORY Refill (AGFAMPLE) MAHI TAN ([id number]) 1975 F Date Time Provider Department 01/28/18 LESTER LOPEZ ([facility]) AGKASSANDRA During your visit today, we recorded the following information about you: Gabo Mcginnis ([employer]) 01/28/2018 5:10 PM Signed Pharmacy electronically requests the following refill(s) Pending Prescriptions Disp Refills JANUVIA 100 MG TABLET 30 tablet 2 Sig: TAKE 1 TABLET EVERY DAY ESPINOZA: Yes LEVOTHYROXINE 175 MCG TABLET 30 tablet 2 Sig: Take 1 tablet by mouth once daily. ESPINOZA: Yes Gabo Mcginnis CMA Allergies As of Date: 01/28/2018 Noted Allergy Reaction BENEDRYL (DIPHENHYDRAMINE) 07/01/2009 Comments: Makes her feel jittery DOXYCYCLINE 08/13/2006 11 - Vomiting IMITREX (SUMATRIPTAN SUCCINATE) 12/06/2009 Comments: chest pain PHENERGAN (PROMETHAZINE HCL) 06/14/2010 5 - Intolerance Comments: restless legs TRAMADOL 07/05/2017 5 - Intolerance Date Reviewed: 01/27/2018 Reviewed by: Nirali December - Fully Assessed Reason for Visit: Refill Request [94] Order(s):JANUVIA 100 mg tabletTAKE 1 TABLET EVERY DAYDisp: 30 tabletRfl: 5 levothyroxine (SYNTHROID) 175 mcg tabletTake 1 tablet by mouth once daily.Disp: 30 tabletRfl: 5 Prescriptions as of 01/28/2018 Sig: JANUVIA 100 MG TABLET TAKE 1 TABLET EVERY DAY LEVOTHYROXINE 175 MCG TABLET Take 1 tablet by mouth once d* BLOOD-GLUCOSE METER 1 Units once daily. LANCETS Use as instructed. Preferred * BLOOD SUGAR DIAGNOSTIC STRIPS Use as instructed. Insurance * GABAPENTIN 100 MG CAPSULE TAKE 2 CAPSULES AT BEDTIME PRAMIPEXOLE 0.5 MG TABLET Take 1 tablet by mouth daily * METFORMIN 1,000 MG TABLET TAKE 1 TABLET TWICE DAILY WIT* FAMOTIDINE 20 MG TABLET Take 1 tablet by mouth daily * FLUTICASONE 50 MCG/ACTUATION * Use 1 Harcourt in each nostril o* ASPIRIN 81 MG CHEWABLE TABLET Take 81 mg by mouth. CARVEDILOL 12.5 MG TABLET Take 1 tablet by mouth twice * PANTOPRAZOLE 40 MG TABLET,DEL* Take 1 tablet by mouth once d* FERROUS SULFATE 325 MG (65 MG* Take 1 tablet by mouth daily * ALBUTEROL SULFATE HFA 90 MCG/* Inhale 2 Puffs as instructed * ATORVASTATIN 20 MG TABLET Take 1 tablet by mouth once d* CLOPIDOGREL 75 MG TABLET Take 1 tablet by mouth once d* CHOLECALCIFEROL (VITAMIN D3) * Take 1 capsule by mouth once * LEVONORGESTREL 20 MCG/24 HR (* 1 Each by INTRAUTERINE route * BLOOD SUGAR DIAGNOSTIC STRIPS Test blood sugar(s) one times* LANCETS Test blood sugar(s) one times* Problem List As Of Date 01/28/2018 Noted Resolved Chest pain, unspecified [R07.9] INVALID FOR*11/21/2011 Essential hypertension, benign [I10] INVALID FOR*11/21/2011 Shortness of breath [R06.02] INVALID FOR*11/21/2011 Restless legs syndrome (RLS) [G25.81] INVALID FOR* Insomnia [G47.00] INVALID FOR* PLANTAR Fasciitis [M72.2] INVALID FOR*11/21/2011 Diarrhea [R19.7] INVALID FOR*09/29/2014 Hemorrhage of gastrointestinal tract [K92.2] INVALID FOR* Internal hemorrhoids without mention of complic*INVALID FOR*11/21/2011 Ganglion of joint [M67.40] INVALID FOR*11/21/2011 Irritable bowel syndrome [K58.9] INVALID FOR* PAP SMEAR OF CERVIX W ASCUS [R87.610] INVALID FOR* Cervical high risk human papillomavirus (HPV) D*INVALID FOR* Female stress incontinence [N39.3] INVALID FOR* Pain in limb [M79.609] INVALID FOR*11/21/2011 Calcaneal spur [M77.30] INVALID FOR*11/21/2011 Depressive disorder, not elsewhere classified [*INVALID FOR*11/21/2011 Microscopic hematuria [R31.29] INVALID FOR*11/21/2011 Pain in joint, pelvic region and thigh [M25.559]INVALID FOR*11/21/2011 Cholelithiasis NOS [K80.20] INVALID FOR*11/21/2011 Hypothyroid [E03.9] INVALID FOR* Ovarian cystic mass [N83.209] INVALID FOR*11/21/2011 Depression, major [F32.9] 11/21/2011 Panic attack [F41.0] INVALID FOR*11/21/2011 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] INVALID FOR* Backache, unspecified [M54.9] INVALID FOR*09/29/2014 Cervicalgia [M54.2] INVALID FOR*09/29/2014 Bipolar 2 disorder (HCC) [F31.81] INVALID FOR* Dysuria [R30.0] INVALID FOR*09/29/2014 Hematuria [R31.9] INVALID FOR* Urinary tract infection [N39.0] INVALID FOR*09/29/2014 Urgency of urination [R39.15] INVALID FOR*09/29/2014 Frequency of urination [R35.0] INVALID FOR*09/29/2014 Low back pain [M54.5] INVALID FOR* Family history of ovarian cancer [Z80.41] INVALID FOR* LADONNA (stress urinary incontinence, female) [N39.*INVALID FOR* Cystocele [PWQ7683] INVALID FOR* Type 2 diabetes mellitus without complication (*INVALID FOR* Trigger middle finger of left hand [M65.332] INVALID FOR* Coronary atherosclerosis [I25.10] INVALID FOR* More... Essential hypertension [I10] INVALID FOR* Morbid obesity with BMI of 40.0-44.9, adult (HC*INVALID FOR* GERD (gastroesophageal reflux disease) [K21.9] INVALID FOR* TONIO (obstructive sleep apnea) [G47.33] INVALID FOR* More... Iron deficiency concern [E61.1] INVALID FOR* Presence of drug coated stent in LAD coronary a*INVALID FOR* Family history of ischemic heart disease [Z82.4*INVALID FOR* Presence of drug coated stent in right coronary*INVALID FOR* Vitamin D insufficiency [E55.9] INVALID FOR* Sprain of lumbar region-[facility] [S33.5XXA] INVALID FOR* Anterior cervical lymphadenopathy [R59.0] INVALID FOR* More... Axillary lymphadenopathy [R59.0] INVALID FOR*08/14/2016 More... Onychomycosis [B35.1] INVALID FOR* Mild intermittent asthma without complication [*INVALID FOR* Prolonged QT interval [R94.31] INVALID FOR* Chronic pain of left knee [M25.562, G89.29] INVALID FOR* Iron deficiency anemia [D50.9] INVALID FOR* Gastroesophageal reflux disease [K21.9] INVALID FOR* Family history of coronary artery disease [Z82.*INVALID FOR* Hyperlipidemia [E78.5] INVALID FOR* Prescriptions ordered this encounter Disp Refills Start End JANUVIA 100 MG TABLET 30 t* 5 01/28/2018 Sig: TAKE 1 TABLET EVERY DAY LEVOTHYROXINE 175 MCG TABLET 30 t* 5 01/28/2018 Route: ORAL Sig: Take 1 tablet by mouth once daily. Medications Discontinued During This Encounter JANUVIA 100 mg tablet 30 t* 5 07/30/2017 01/28/2018 Cmt: Med-syn patient. If too soon, we will put new RX on hold for next cycle. Sig: TAKE 1 TABLET EVERY DAY Disc: Reason for discontinue is not on file. levothyroxine (SYNTHROID) 175 mcg ta* 30 t* 3 10/29/2017 01/28/2018 Route: ORAL Sig: Take 1 tablet by mouth once daily. Disc: Reason for discontinue is not on file. Encounter Status:Closed by LESTER LOPEZ CNP on 01/28/18 PROGRESS Observed: 01/27/2018 Status: COMPLETED Source: [place] 3:40 PM [facility] [place] REPOSITORY O ID: [id number] Author: Lester Lopez (Hector) Service: (none) Author Type: Nurse Practitioner Type: Progress Notes Filed: 01/29/2018 1:21 PM Note Text: Subjective HPI Here today for diabetes follow-up visit. Patient has type 2 diabetes. Feeling well today, no concerns. Denies dizziness, chest pain, shortness of breath, changes in vision, fatigue, foot pain. Denies numbness and tingling in extremities. Denies polydipsia, polyphagia, polyuria. Home Blood Sugars: FBS staying around 150. Medication Compliance: Never misses a dose. Low Blood Sugars: None Diet: Started Whole 30 last week. Fruit and fruit juice. 1 cup fruit and maybe 1 cup fruit juice per day. 3-4 cups per day of vegetables. No milk, no carbs. Exercise: Very active, housework, working. Eye Exam: Planning it Podiatry: none recently Tobacco use - never a smoker Alcohol use - None RLS - Did not tolerate requip or mirapex. Started gabapentin and she is doing well on this medication. Sleeping much better. PAST MEDICAL HISTORY Diagnosis Date - Allergic rhinitis - Anxiety - Asthma no issues for several years - Bipolar 2 disorder (HCC) 11/21/2011 - CAD (coronary artery disease) - Calculus of gallbladder without mention of cholecystitis or obstruction 08/24/2009 - Cervical high risk human papillomavirus (HPV) DNA test positive - Common cold - Depression, major - Depressive disorder Dr. Cornell- [facility] - Diabetes ([facility]) - Diarrhea - Double vessel coronary artery disease 2 stents - Excessive or frequent menstruation Heavy periods Resolved - Female stress incontinence 01/13/2008 - Ganglion of joint 10/14/2007 - GERD (gastroesophageal reflux disease) - Hand joint pain - Hand pain - Hemorrhage of gastrointestinal tract, unspecified - History of intrauterine contraceptive device Mirena placed May 2015 Dr. Willy Schmid - Hyperlipidemia - Hypertension - Internal hemorrhoids without mention of complication - Irregular menstrual cycle Irregular periods Resolved - Irritable bowel syndrome Irritable bowel - Itching - Obesity - Obstructive sleep apnea - Onychomycosis - Other specified acquired hypothyroidism - Ovarian cystic mass 06/07/2010 - Panic attack 07/18/2010 - Papanicolaou smear of cervix with atypical squamous cells of undetermined significance (ASC-US) - Paresthesia of hand - PLANTAR Fasciitis 07/15/2007 - PMH - PAST MEDICAL HISTORY OF restless leg syndrome - PTSD (post-traumatic stress disorder) - Status post left heart catheterization 10/2014 PAST SURGICAL HISTORY Procedure Laterality Date - ANGIOPLASTY 11/23/14 [facility]-proximal LAD and proximal RCA 2 stents - CARDIAC CATHETERIZATION HX 11/20/14 [facility]-proximal RCA lesion - COLONOSCOP W/ OR W/O BRSH SPEC 06/09/14 Colonoscopy - COLONOSCOPY W/BX 08/13/07 - COLPOSCOPY (VAGINOSCOPY) 2006 Colposcopy - EXCIS PRIMARY GANGLION WRIST 11/04/07 LEFT WRIST, Dr. Alcantara - LAP CHOLECYSTECT/CHOLANGIOGRAPHY 09/05/2009 Normal IOC - LIGATE FALLOPIAN TUBE 10/1998 Tubal ligation, [facility] - PAST SURGICAL HISTORY OF Left 01/28/15 middle trigger finger release - S SLING DANIELLE HARVEY TOTL [id number] 2013 monarc - THYROIDECTOMY 01/1994 goiter no cancer ALLERGIES Benedryl [Diphenhydramine]; Doxycycline; Imitrex [Sumatriptan Succinate]; Phenergan [Promethazine Hcl]; Tramadol MEDICATIONS gabapentin (NEURONTIN) 100 mg capsule TAKE 2 CAPSULES AT BEDTIME metFORMIN (GLUCOPHAGE) 1,000 mg tablet TAKE 1 TABLET TWICE DAILY WITH meals famotidine (PEPCID) 20 mg tablet Take 1 tablet by mouth daily at bedtime. fluticasone (FLONASE) 50 mcg/actuation nasal spray Use 1 Harcourt in each nostril once daily. aspirin 81 mg chewable tablet Take 81 mg by mouth. carvedilol (COREG) 12.5 mg tablet Take 1 tablet by mouth twice daily. pantoprazole DR (PROTONIX) 40 mg tablet Take 1 tablet by mouth once daily. ferrous sulfate (IRON) 325 mg (65 mg iron) tablet Take 1 tablet by mouth daily with breakfast. albuterol HFA (VENTOLIN HFA) 90 mcg/actuation inhaler Inhale 2 Puffs as instructed every 4 hours as needed for Wheezing/Shortness of Breath. atorvastatin (LIPITOR) 20 mg tablet Take 1 tablet by mouth once daily. clopidogrel (PLAVIX) 75 mg tablet Take 1 tablet by mouth once daily. Cholecalciferol, Vitamin D3, 1,000 unit cap Take 1 capsule by mouth once daily. levonorgestrel (MIRENA) 20 mcg/24 hr (5 years) IUD 1 Each by INTRAUTERINE route continuous. blood sugar diagnostic (BLOOD GLUCOSE TEST) test strip Test blood sugar(s) one times daily. Dx: 250.00. Insulin: No Lancets lancets Test blood sugar(s) one times daily. Dx: 250.00. Insulin: No JANUVIA 100 mg tablet TAKE 1 TABLET EVERY DAY levothyroxine (SYNTHROID) 175 mcg tablet Take 1 tablet by mouth once daily. Blood-Glucose Meter misc 1 Units once daily. Lancets lancets Use as instructed. Preferred insurance brand. blood sugar diagnostic (ONETOUCH ULTRA TEST) test strip Use as instructed. Insurance preferred brand. pramipexole (MIRAPEX) 0.5 mg tablet Take 1 tablet by mouth daily at bedtime. FAMILY HISTORY Problem Relation Age of Onset - Cancer Mother /lung cancer/nonhodgkins lymphoma/Ovarian - Asthma Mother - Hyperlipidemia Mother - depressive disorder [OTHER] Mother - Heart Father - Hyperlipidemia Father - Hypertension Father - cornary artery disease [OTHER] Father heart attack and stents put in - Osteoporosis Maternal Grandmother - Coronary Artery Disease Paternal Grandmother - Diabetes Paternal Grandmother - Coronary Artery Disease Paternal Grandfather - Breast Cancer Other maternal great grandmother - alcoholism [OTHER] Brother - depressive disorder [OTHER] Brother - Heart Brother - Hyperlipidemia Brother - Hypertension Brother Social History Substance Use Topics - Smoking status: Never Smoker - Smokeless tobacco: Never Used - Alcohol use No Review of Systems Constitutional: Negative for chills, fever and malaise/fatigue. HENT: Negative for ear pain, hearing loss, sinus pain and sore throat. Eyes: Negative for blurred vision, double vision and pain. Respiratory: Negative for cough, shortness of breath and wheezing. Cardiovascular: Negative for chest pain, palpitations and leg swelling. Gastrointestinal: Positive for heartburn. Negative for abdominal pain, blood in stool, constipation, diarrhea, nausea and vomiting. Genitourinary: Negative for dysuria, frequency, hematuria and urgency. Musculoskeletal: Negative for joint pain. Skin: Negative for rash. Neurological: Negative for dizziness, tingling, loss of consciousness, weakness and headaches. Endo/Heme/Allergies: Negative for polydipsia. Psychiatric/Behavioral: Negative for depression. The patient has insomnia. The patient is not nervous/anxious. BP 118/78 Pulse 79 Temp 36.9 ?C (98.4 ?F) Ht 165.1 cm (5' 5) Wt 108.1 kg (238 lb 6.4 oz) BMI 39.67 kg/m? Objective Physical Exam Constitutional: She is oriented to person, place, and time and well-developed, well-nourished, and in no distress. HENT: Head: Normocephalic and atraumatic. Right Ear: Hearing, tympanic membrane, external ear and ear canal normal. Left Ear: Hearing, tympanic membrane, external ear and ear canal normal. Nose: Nose normal. Mouth/Throat: Oropharynx is clear and moist and mucous membranes are normal. Eyes: Conjunctivae, EOM and lids are normal. Pupils are equal, round, and reactive to light. Neck: Trachea normal and normal range of motion. Neck supple. Normal carotid pulses and no JVD present. Carotid bruit is not present. Cardiovascular: Normal rate, regular rhythm, normal heart sounds and intact distal pulses. No murmur heard. Pulses: Carotid pulses are 2+ on the right side, and 2+ on the left side. Radial pulses are 2+ on the right side, and 2+ on the left side. Dorsalis pedis pulses are 2+ on the right side, and 2+ on the left side. Pulmonary/Chest: Effort normal and breath sounds normal. She has no wheezes. She has no rhonchi. She has no rales. Abdominal: Soft. Normal appearance and bowel sounds are normal. There is no tenderness. Musculoskeletal: Normal range of motion. She exhibits no edema. Lymphadenopathy: She has no cervical adenopathy. Neurological: She is alert and oriented to person, place, and time. She has normal motor skills. She displays no weakness. No cranial nerve deficit. Gait normal. Skin: Skin is warm and dry. No rash noted. She is not diaphoretic. Psychiatric: Mood, memory, affect and judgment normal. Component Latest Ref Rng AND Units 10/28/2017 WBC 4.8 - 10.8 thou/cmm 8.5 RBC 4.20 - 5.40 mil/cmm 4.62 HGB 12.0 - 16.0 g/dL 13.4 Hematocrit 37.0 - 47.0 % 39.9 MCV 81.0 - 99.0 fl 86.4 MCH 27.0 - 31.0 pg 29.0 MCHC 32.0 - 36.0 % 33.6 RDW 11.5 - 15.9 % 13.8 Platelet Count 150 - 400 thou/cmm 257 MPV 7.1 - 10.5 fl 9.8 Seg Neutrophil % 64.8 Lymphocyte % 25.6 Monocyte % 5.8 Eosinophil % 3.2 Basophil % 0.6 Seg. Neut. # 3.00 - 5.67 thou/cmm 5.51 Lymphocyte # 1.50 - 3.65 thou/cmm 2.18 Monocyte # 0.20 - 1.00 thou/cmm 0.49 Eosinophil # 0.00 - 0.41 thou/cmm 0.27 Basophil # 0.00 - 0.08 thou/cmm 0.05 Albumin 3.4 - 5.0 g/dL 4.4 ALT 12 - 78 U/L 38 Alkaline Phosphatase 46 - 116 U/L 98 Protein, Total 6.4 - 8.2 g/dL 8.2 ALBUMIN/GLOBULIN RATIO 0.9 - 2.4 1.2 AST 15 - 37 U/L 41 (H) Bilirubin, Total 0.2 - 1.0 mg/dL 0.7 Direct Bilirubin 0.00 - 0.20 mg/dL 0.18 Bilirubin, Indirect 0.0 - 0.7 mg/dL 0.5 Creatinine Urine mg/dL 32.7 Microalbumin, Random 0.20 - 2.50 mg/dL 0.57 MA/Creat Ratio 0.10 - 30.00 mg/g 17.43 TSH 0.34 - 4.82 uIU/mL 8.43 (H) Component Latest Ref Rng AND Units 08/18/2016 02/22/2017 06/17/2017 10/28/2017 Hemoglobin A1C 4.5 - 6.2 % 6.9 (H) 7.5 (H) 6.4 (A) 6.3 (H) Estimated Average Glucose mg/dl 151 169 134 ASSESSMENT/PLAN: 1. Type 2 diabetes mellitus without complication, without long-term current use of insulin (HCC) - ICD9: 250.00, ICD10: E11.9 (primary diagnosis) Controlled. - Continue current medications = Metformin 1,000 mg BID and Januvia 100 mg daily - Blood glucose monitoring on a once a day schedule - Follow up in 3 months, sooner should any other issues arise. - Discussed diabetic education issues of [facility] diabetic complications and diet with patient. - BP goal of <130/80 - LDL goal of <100 - HGB A1C 2. Essential hypertension - ICD9: 401.9, ICD10: I10 - suboptimal control - Continue care with cardiology Dr. Samano - On Coreg 12.5 mg BID - Encouraged dietary sodium restriction/DASH diet - Recommend home blood pressure monitoring, to bring results in on next visit - Goal of BP <130/80 3. Obesity, Class II, BMI 35-39.9 - ICD9: 278.00, ICD10: E66.9 Counseled patient on nutrition and exercise. 4. Insomnia due to medical condition - ICD9: 327.01, ICD10: G47.01 Improved since starting gabapentin for RLS 5. Hyperlipidemia, unspecified hyperlipidemia type - ICD9: 272.4, ICD10: E78.5 Lipid Panel 06/2017 = Total chol 116, trig 112, HDL 37, LDL 57 - good control - Continue current medication atorvastatin 20 mg daily - Encouraged following a low fat, low cholesterol diet. - Continue f/u with cardiology 6. Gastroesophageal reflux disease, esophagitis presence not specified - ICD9: 530.81, ICD10: K21.9 - Discussed lifestyle modifications including losing weight, limiting caffeine, no meals three hours before sleep and head of bed elevation - Continue treatment with Pepcid 20 mg QD and pantoprazole 40 mg daily - She was given referral to heartburn clinic and plans to make appointment. 7. Iron deficiency anemia, unspecified iron deficiency anemia type - ICD9: 280.9, ICD10: D50.9 Stable Continue ferrous sulfate 325 mg once a day Continue to monitor labs 8. Mild intermittent asthma without complication - ICD9: 493.90, ICD10: J45.20 - Stable - Continue current meds = albuterol inhaler as needed - Avoidance of triggers recommended - Follow up in 3 months 9. Restless legs syndrome (RLS) - ICD9: 333.94, ICD10: G25.81 Stable on Gabapentin 200 mg at bedtime. 10. Postoperative hypothyroidism - ICD9: 244.0, ICD10: E89.0 - Instructed patient on importance of taking on an empty stomach either first thing in the morning or at bedtime. - Levothyroxine adjusted up to 175 mcg about 2 months ago, due for recheck now. F/U in about 3 months Lester Lopez APRN.[employer] [facility] Observed: 01/27/2018 Status: COMPLETED Source: [place] 3:30 PM [facility] REPOSITORY Office Visit (AGLVANN) MAHI ([id number]) 1975 F Date Time Provider Department 01/27/18 3:30 PM LESTER LOPEZ (HECTOR) CHARLINE During your visit today, we recorded the following information about you: Temperature Pulse Blood pressure Weight 98.4 degrees 79/minute 118/78 108.1 kg Height 1.651 m , 01/27/2018 3:34 PM Signed Pt here for follow up on dm December /AT Lester Lopez ([place]) 01/29/2018 1:21 PM Signed Subjective HPI Here today for diabetes follow-up visit. Patient has type 2 diabetes. Feeling well today, no concerns. Denies dizziness, chest pain, shortness of breath, changes in vision, fatigue, foot pain. Denies numbness and tingling in extremities. Denies polydipsia, polyphagia, polyuria. Home Blood Sugars: FBS staying around 150. Medication Compliance: Never misses a dose. Low Blood Sugars: None Diet: Started Whole last week. Fruit and fruit juice. 1 cup fruit and maybe 1 cup fruit juice per day. 3-4 cups per day of vegetables. No milk, no carbs. Exercise: Very active, housework, working. Eye Exam: Planning it Podiatry: none recently Tobacco use - never a smoker Alcohol use - None RLS - Did not tolerate requip or mirapex. Started gabapentin and she is doing well on this medication. Sleeping much better. PAST MEDICAL HISTORY Diagnosis Date - Allergic rhinitis - Anxiety - Asthma no issues for several years - Bipolar 2 disorder (HCC) 11/21/2011 - CAD (coronary artery disease) - Calculus of gallbladder without mention of cholecystitis or obstruction 08/24/2009 - Cervical high risk human papillomavirus (HPV) DNA test positive - Common cold - Depression, major - Depressive disorder Dr. Cornell- [facility] - Diabetes ([facility]) - Diarrhea - Double vessel coronary artery disease 2 stents - Excessive or frequent menstruation Heavy periods Resolved - Female stress incontinence 01/13/2008 - Ganglion of joint 10/14/2007 - GERD (gastroesophageal reflux disease) - Hand joint pain - Hand pain - Hemorrhage of gastrointestinal tract, unspecified - History of intrauterine contraceptive device Mirena placed May 2015 Dr. Willy Schmid - Hyperlipidemia - Hypertension - Internal hemorrhoids without mention of complication - Irregular menstrual cycle Irregular periods Resolved - Irritable bowel syndrome Irritable bowel - Itching - Obesity - Obstructive sleep apnea - Onychomycosis - Other specified acquired hypothyroidism - Ovarian cystic mass 06/07/2010 - Panic attack 07/18/2010 - Papanicolaou smear of cervix with atypical squamous cells of undetermined significance (ASC-US) - Paresthesia of hand - PLANTAR Fasciitis 07/15/2007 - PMH - PAST MEDICAL HISTORY OF restless leg syndrome - PTSD (post-traumatic stress disorder) - Status post left heart catheterization 10/2014 PAST SURGICAL HISTORY Procedure Laterality Date - ANGIOPLASTY 11/23/14 [facility]-proximal LAD and proximal RCA 2 stents - CARDIAC CATHETERIZATION HX 11/20/14 [facility]proximal RCA lesion - COLONOSCOP W/ OR W/O BRSH SPEC 06/09/14 Colonoscopy - COLONOSCOPY W/BX 08/13/07 - COLPOSCOPY (VAGINOSCOPY) 2006 Colposcopy - EXCIS PRIMARY GANGLION WRIST 11/04/07 LEFT WRIST, Dr. Alcantara - LAP CHOLECYSTECT/CHOLANGIOGRAPHY 09/05/2009 Normal IOC - LIGATE FALLOPIAN TUBE 10/1998 Tubal ligation, [facility] - PAST SURGICAL HISTORY OF Left 01/28/15 middle trigger finger release - S SLING DANIELLE HARVEY TOTL 4821 2013 monarc - THYROIDECTOMY 01/1994 goiter no cancer ALLERGIES Benedryl [Diphenhydramine]; Doxycycline; Imitrex [Sumatriptan Succinate]; Phenergan [Promethazine Hcl]; Tramadol MEDICATIONS gabapentin (NEURONTIN) 100 mg capsule TAKE 2 CAPSULES AT BEDTIME metFORMIN (GLUCOPHAGE) 1,000 mg tablet TAKE 1 TABLET TWICE DAILY WITH meals famotidine (PEPCID) 20 mg tablet Take 1 tablet by mouth daily at bedtime. fluticasone (FLONASE) 50 mcg/actuation nasal spray Use 1 Harcourt in each nostril once daily. aspirin 81 mg chewable tablet Take 81 mg by mouth. carvedilol (COREG) 12.5 mg tablet Take 1 tablet by mouth twice daily. pantoprazole DR (PROTONIX) 40 mg tablet Take 1 tablet by mouth once daily. ferrous sulfate (IRON) 325 mg (65 mg iron) tablet Take 1 tablet by mouth daily with breakfast. albuterol HFA (VENTOLIN HFA) 90 mcg/actuation inhaler Inhale 2 Puffs as instructed every 4 hours as needed for Wheezing/Shortness of Breath. atorvastatin (LIPITOR) 20 mg tablet Take 1 tablet by mouth once daily. clopidogrel (PLAVIX) 75 mg tablet Take 1 tablet by mouth once daily. Cholecalciferol, Vitamin D3, 1,000 unit cap Take 1 capsule by mouth once daily. levonorgestrel (MIRENA) 20 mcg/24 hr (5 years) IUD 1 Each by INTRAUTERINE route continuous. blood sugar diagnostic (BLOOD GLUCOSE TEST) test strip Test blood sugar(s) one times daily. Dx: 250.00. Insulin: No Lancets lancets Test blood sugar(s) one times daily. Dx: 250.00. Insulin: No JANUVIA 100 mg tablet TAKE 1 TABLET EVERY DAY levothyroxine (SYNTHROID) 175 mcg tablet Take 1 tablet by mouth once daily. Blood-Glucose Meter misc 1 Units once daily. Lancets lancets Use as instructed. Preferred insurance brand. blood sugar diagnostic (ONETOUCH ULTRA TEST) test strip Use as instructed. Insurance preferred brand. pramipexole (MIRAPEX) 0.5 mg tablet Take 1 tablet by mouth daily at bedtime. FAMILY HISTORY Problem Relation Age of Onset - Cancer Mother /lung cancer/nonhodgkins lymphoma/Ovarian - Asthma Mother - Hyperlipidemia Mother - depressive disorder [OTHER] Mother - Heart Father - Hyperlipidemia Father - Hypertension Father - cornary artery disease [OTHER] Father heart attack and stents put in - Osteoporosis Maternal Grandmother - Coronary Artery Disease Paternal Grandmother - Diabetes Paternal Grandmother - Coronary Artery Disease Paternal Grandfather - Breast Cancer Other maternal great grandmother - alcoholism [OTHER] Brother - depressive disorder [OTHER] Brother - Heart Brother - Hyperlipidemia Brother - Hypertension Brother Social History Substance Use Topics - Smoking status: Never Smoker - Smokeless tobacco: Never Used - Alcohol use No Review of Systems Constitutional: Negative for chills, fever and malaise/fatigue. HENT: Negative for ear pain, hearing loss, sinus pain and sore throat. Eyes: Negative for blurred vision, double vision and pain. Respiratory: Negative for cough, shortness of breath and wheezing. Cardiovascular: Negative for chest pain, palpitations and leg swelling. Gastrointestinal: Positive for heartburn. Negative for abdominal pain, blood in stool, constipation, diarrhea, nausea and vomiting. Genitourinary: Negative for dysuria, frequency, hematuria and urgency. Musculoskeletal: Negative for joint pain. Skin: Negative for rash. Neurological: Negative for dizziness, tingling, loss of consciousness, weakness and headaches. Endo/Heme/Allergies: Negative for polydipsia. Psychiatric/Behavioral: Negative for depression. The patient has insomnia. The patient is not nervous/anxious. BP 118/78 Pulse 79 Temp 36.9 ?C (98.4 ?F) Ht 165.1 cm (5' 5) Wt 108.1 kg (238 lb 6.4 oz) BMI 39.67 kg/m? Objective Physical Exam Constitutional: She is oriented to person, place, and time and well-developed, well-nourished, and in no distress. HENT: Head: Normocephalic and atraumatic. Right Ear: Hearing, tympanic membrane, external ear and ear canal normal. Left Ear: Hearing, tympanic membrane, external ear and ear canal normal. Nose: Nose normal. Mouth/Throat: Oropharynx is clear and moist and mucous membranes are normal. Eyes: Conjunctivae, EOM and lids are normal. Pupils are equal, round, and reactive to light. Neck: Trachea normal and normal range of motion. Neck supple. Normal carotid pulses and no JVD present. Carotid bruit is not present. Cardiovascular: Normal rate, regular rhythm, normal heart sounds and intact distal pulses. No murmur heard. Pulses: Carotid pulses are 2+ on the right side, and 2+ on the left side. Radial pulses are 2+ on the right side, and 2+ on the left side. Dorsalis pedis pulses are 2+ on the right side, and 2+ on the left side. Pulmonary/Chest: Effort normal and breath sounds normal. She has no wheezes. She has no rhonchi. She has no rales. Abdominal: Soft. Normal appearance and bowel sounds are normal. There is no tenderness. Musculoskeletal: Normal range of motion. She exhibits no edema. Lymphadenopathy: She has no cervical adenopathy. Neurological: She is alert and oriented to person, place, and time. She has normal motor skills. She displays no weakness. No cranial nerve deficit. Gait normal. Skin: Skin is warm and dry. No rash noted. She is not diaphoretic. Psychiatric: Mood, memory, affect and judgment normal. Component Latest Ref Rng AND Units 10/28/2017 WBC 4.8 - 10.8 thou/cmm 8.5 RBC 4.20 - 5.40 mil/cmm 4.62 HGB 12.0 - 16.0 g/dL 13.4 Hematocrit 37.0 - 47.0 % 39.9 MCV 81.0 - 99.0 fl 86.4 MCH 27.0 - 31.0 pg 29.0 MCHC 32.0 - 36.0 % 33.6 RDW 11.5 - 15.9 % 13.8 Platelet Count 150 - 400 thou/cmm 257 MPV 7.1 - 10.5 fl 9.8 Seg Neutrophil % 64.8 Lymphocyte % 25.6 Monocyte % 5.8 Eosinophil % 3.2 Basophil % 0.6 Seg. Neut. # 3.00 - 5.67 thou/cmm 5.51 Lymphocyte # 1.50 - 3.65 thou/cmm 2.18 Monocyte # 0.20 - 1.00 thou/cmm 0.49 Eosinophil # 0.00 - 0.41 thou/cmm 0.27 Basophil # 0.00 - 0.08 thou/cmm 0.05 Albumin 3.4 - 5.0 g/dL 4.4 ALT 12 - 78 U/L 38 Alkaline Phosphatase 46 - 116 U/L 98 Protein, Total 6.4 - 8.2 g/dL 8.2 ALBUMIN/GLOBULIN RATIO 0.9 - 2.4 1.2 AST 15 - 37 U/L 41 (H) Bilirubin, Total 0.2 - 1.0 mg/dL 0.7 Direct Bilirubin 0.00 - 0.20 mg/dL 0.18 Bilirubin, Indirect 0.0 - 0.7 mg/dL 0.5 Creatinine Urine mg/dL 32.7 Microalbumin, Random 0.20 - 2.50 mg/dL 0.57 MA/Creat Ratio 0.10 - 30.00 mg/g 17.43 TSH 0.34 - 4.82 uIU/mL 8.43 (H) Component Latest Ref Rng AND Units 08/18/2016 02/22/2017 06/17/2017 10/28/2017 Hemoglobin A1C 4.5 - 6.2 % 6.9 (H) 7.5 (H) 6.4 (A) 6.3 (H) Estimated Average Glucose mg/dl 151 169 134 ASSESSMENT/PLAN: 1. Type 2 diabetes mellitus without complication, without long-term current use of insulin (HCC) - ICD9: 250.00, ICD10: E11.9 (primary diagnosis) Controlled. - Continue current medications = Metformin 1,000 mg BID and Januvia 100 mg daily - Blood glucose monitoring on a once a day schedule - Follow up in 3 months, sooner should any other issues arise. - Discussed diabetic education issues of [facility] diabetic complications and diet with patient. - BP goal of <130/80 - LDL goal of <100 - HGB A1C 2. Essential hypertension - ICD9: 401.9, ICD10: I10 - suboptimal control - Continue care with cardiology Dr. Samano - On Coreg 12.5 mg BID - Encouraged dietary sodium restriction/DASH diet - Recommend home blood pressure monitoring, to bring results in on next visit - Goal of BP <130/80 3. Obesity, Class II, BMI 35-39.9 - ICD9: 278.00, ICD10: E66.9 Counseled patient on nutrition and exercise. 4. Insomnia due to medical condition - ICD9: 327.01, ICD10: G47.01 Improved since starting gabapentin for RLS 5. Hyperlipidemia, unspecified hyperlipidemia type - ICD9: 272.4, ICD10: E78.5 Lipid Panel 06/2017 = Total chol 116, trig 112, HDL 37, LDL 57 - good control - Continue current medication atorvastatin 20 mg daily - Encouraged following a low fat, low cholesterol diet. - Continue f/u with cardiology 6. Gastroesophageal reflux disease, esophagitis presence not specified - ICD9: 530.81, ICD10: K21.9 - Discussed lifestyle modifications including losing weight, limiting caffeine, no meals three hours before sleep and head of bed elevation - Continue treatment with Pepcid 20 mg QD and pantoprazole 40 mg daily - She was given referral to heartburn clinic and plans to make appointment. 7. Iron deficiency anemia, unspecified iron deficiency anemia type - ICD9: 280.9, ICD10: D50.9 Stable Continue ferrous sulfate 325 mg once a day Continue to monitor labs 8. Mild intermittent asthma without complication - ICD9: 493.90, ICD10: J45.20 - Stable - Continue current meds = albuterol inhaler as needed - Avoidance of triggers recommended - Follow up in 3 months 9. Restless legs syndrome (RLS) - ICD9: 333.94, ICD10: G25.81 Stable on Gabapentin 200 mg at bedtime. 10. Postoperative hypothyroidism - ICD9: 244.0, ICD10: E89.0 - Instructed patient on importance of taking on an empty stomach either first thing in the morning or at bedtime. - Levothyroxine adjusted up to 175 mcg about 2 months ago, due for recheck now. F/U in about 3 months Lester Lopez APRN.[employer] Referring Provider: SELF [[id number]] Allergies As of Date: 01/27/2018 Noted Allergy Reaction BENEDRYL (DIPHENHYDRAMINE) 07/01/2009 Comments: Makes her feel jittery DOXYCYCLINE 08/13/2006 11 - Vomiting IMITREX (SUMATRIPTAN SUCCINATE) 12/06/2009 Comments: chest pain PHENERGAN (PROMETHAZINE HCL) 06/14/2010 5 - Intolerance Comments: restless legs TRAMADOL 07/05/2017 5 - Intolerance Date Reviewed: 01/27/2018 Reviewed by: Nirali December - Fully Assessed Reason for Visit: Follow Up [171] Primary Visit Diagnosis:Type 2 diabetes mellitus without complication, without long-term current use of insulin (HCC) [E11.9] Other Visit Diagnoses:Essential hypertension [I10] Obesity, Class II, BMI 35-39.9 [E66.9] Insomnia due to medical condition [G47.01] Hyperlipidemia, unspecified hyperlipidemia type [E78.5] Gastroesophageal reflux disease, esophagitis presence not specified [K21.9] Iron deficiency anemia, unspecified iron deficiency anemia type [D50.9] Mild intermittent asthma without complication [J45.20] Restless legs syndrome (RLS) [G25.81] Postoperative hypothyroidism [E89.0] Order(s):Blood-Glucose Meter misc1 Units once daily.Disp: 1 EachRfl: 0 Lancets lancetsUse as instructed. Preferred insurance brand.Disp: 30 EachRfl: 11 blood sugar diagnostic (ONETOUCH ULTRA TEST) test stripUse as instructed. Insurance preferred brand.Disp: 30 StripRfl: 11 HGB A1C [[id number]] Order #: [id number] FUTURE Prescriptions as of 01/27/2018 Sig: GABAPENTIN 100 MG CAPSULE TAKE 2 CAPSULES AT BEDTIME X LEVOTHYROXINE 175 MCG TABLET Take 1 tablet by mouth once d* METFORMIN 1,000 MG TABLET TAKE 1 TABLET TWICE DAILY WIT* FAMOTIDINE 20 MG TABLET Take 1 tablet by mouth daily * X JANUVIA 100 MG TABLET TAKE 1 TABLET EVERY DAY FLUTICASONE 50 MCG/ACTUATION * Use 1 Harcourt in each nostril o* ASPIRIN 81 MG CHEWABLE TABLET Take 81 mg by mouth. CARVEDILOL 12.5 MG TABLET Take 1 tablet by mouth twice * PANTOPRAZOLE 40 MG TABLET,DEL* Take 1 tablet by mouth once d* FERROUS SULFATE 325 MG (65 MG* Take 1 tablet by mouth daily * ALBUTEROL SULFATE HFA 90 MCG/* Inhale 2 Puffs as instructed * ATORVASTATIN 20 MG TABLET Take 1 tablet by mouth once d* CLOPIDOGREL 75 MG TABLET Take 1 tablet by mouth once d* CHOLECALCIFEROL (VITAMIN D3) * Take 1 capsule by mouth once * LEVONORGESTREL 20 MCG/24 HR (* 1 Each by INTRAUTERINE route * BLOOD SUGAR DIAGNOSTIC STRIPS Test blood sugar(s) one times* LANCETS Test blood sugar(s) one times* BLOOD-GLUCOSE METER 1 Units once daily. LANCETS Use as instructed. Preferred * BLOOD SUGAR DIAGNOSTIC STRIPS Use as instructed. Insurance * Medication notes this encounter PRAMIPEXOLE 0.5 MG TABLET >> Nirali, 01/27/2018 3:31 PM >> NIRALI, DecemberJanuary 27, 2018 3:31 PM Not taking Problem List As Of Date 01/27/2018 Noted Resolved Chest pain, unspecified [R07.9] INVALID FOR*11/21/2011 Essential hypertension, benign [I10] INVALID FOR*11/21/2011 Shortness of breath [R06.02] INVALID FOR*11/21/2011 Restless legs syndrome (RLS) [G25.81] INVALID FOR* Insomnia [G47.00] INVALID FOR* PLANTAR Fasciitis [M72.2] INVALID FOR*11/21/2011 Diarrhea [R19.7] INVALID FOR*09/29/2014 Hemorrhage of gastrointestinal tract [K92.2] INVALID FOR* Internal hemorrhoids without mention of complic*INVALID FOR*11/21/2011 Ganglion of joint [M67.40] INVALID FOR*11/21/2011 Irritable bowel syndrome [K58.9] INVALID FOR* PAP SMEAR OF CERVIX W ASCUS [R87.610] INVALID FOR* Cervical high risk human papillomavirus (HPV) D*INVALID FOR* Female stress incontinence [N39.3] INVALID FOR* Pain in limb [M79.609] INVALID FOR*11/21/2011 Calcaneal spur [M77.30] INVALID FOR*11/21/2011 Depressive disorder, not elsewhere classified [*INVALID FOR*11/21/2011 Microscopic hematuria [R31.29] INVALID FOR*11/21/2011 Pain in joint, pelvic region and thigh [M25.559]INVALID FOR*11/21/2011 Cholelithiasis NOS [K80.20] INVALID FOR*11/21/2011 Hypothyroid [E03.9] INVALID FOR* Ovarian cystic mass [N83.209] INVALID FOR*11/21/2011 Depression, major [F32.9] 11/21/2011 Panic attack [F41.0] INVALID FOR*11/21/2011 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] INVALID FOR* Backache, unspecified [M54.9] INVALID FOR*09/29/2014 Cervicalgia [M54.2] INVALID FOR*09/29/2014 Bipolar 2 disorder (HCC) [F31.81] INVALID FOR* Dysuria [R30.0] INVALID FOR*09/29/2014 Hematuria [R31.9] INVALID FOR* Urinary tract infection [N39.0] INVALID FOR*09/29/2014 Urgency of urination [R39.15] INVALID FOR*09/29/2014 Frequency of urination [R35.0] INVALID FOR*09/29/2014 Low back pain [M54.5] INVALID FOR* Family history of ovarian cancer [Z80.41] INVALID FOR* LADONNA (stress urinary incontinence, female) [N39.*INVALID FOR* Cystocele [DHC7475] INVALID FOR* Type 2 diabetes mellitus without complication (*INVALID FOR* Trigger middle finger of left hand [M65.332] INVALID FOR* Coronary atherosclerosis [I25.10] INVALID FOR* More... Essential hypertension [I10] INVALID FOR* Morbid obesity with BMI of 40.0-44.9, adult (HC*INVALID FOR* GERD (gastroesophageal reflux disease) [K21.9] INVALID FOR* TONIO (obstructive sleep apnea) [G47.33] INVALID FOR* More... Iron deficiency concern [E61.1] INVALID FOR* Presence of drug coated stent in LAD coronary a*INVALID FOR* Family history of ischemic heart disease [Z82.4*INVALID FOR* Presence of drug coated stent in right coronary*INVALID FOR* Vitamin D insufficiency [E55.9] INVALID FOR* Sprain of lumbar region-BWC [S33.5XXA] INVALID FOR* Anterior cervical lymphadenopathy [R59.0] INVALID FOR* More... Axillary lymphadenopathy [R59.0] INVALID FOR*08/14/2016 More... Onychomycosis [B35.1] INVALID FOR* Mild intermittent asthma without complication [*INVALID FOR* Prolonged QT interval [R94.31] INVALID FOR* Chronic pain of left knee [M25.562, G89.29] INVALID FOR* Iron deficiency anemia [D50.9] INVALID FOR* Gastroesophageal reflux disease [K21.9] INVALID FOR* Family history of coronary artery disease [Z82.*INVALID FOR* Hyperlipidemia [E78.5] INVALID FOR* Visit Notes: >> Nirali, DecemberJanuary 27, 2018 3:31 PM Status: Signed Pt here for follow up on dm December Nirali /AT Prescriptions ordered this encounter Disp Refills Start End BLOOD-GLUCOSE METER 1 Ea* 0 01/27/2018 Class: Print RX Route: Misc Si Units once daily. LANCETS 30 E* 11 01/27/2018 Class: Print RX Sig: Use as instructed. Preferred insurance brand. BLOOD SUGAR DIAGNOSTIC STRIPS 30 S* 11 01/27/2018 Class: Print RX Sig: Use as instructed. Insurance preferred brand. Medications Discontinued During This Encounter pramipexole (MIRAPEX) 0.5 mg tablet 30 t* 5 11/11/2017 01/29/2018 Route: ORAL Sig: Take 1 tablet by mouth daily at bedtime. Disc: Reason for discontinue is not on file. Disposition: Return in about 3 months (around 05/12/2018), or if symptoms worsen or fail to improve, for Hypertension, Diabetes. Follow-up and Disposition History Recorded Encounter Status:Closed by LESTER LOPEZ CNP on 01/29/18 OBSOLETE Observed: 01/21/2018 Status: COMPLETED Source: [place] 12:00 AM [facility] REPOSITORY Refill (AGFAMPLE) MAHI TAN ([id number]) 1975 F Date Time Provider Department 01/21/18 LESTER LOPEZ ([facility]) AGKASSANDRA During your visit today, we recorded the following information about you: Gabo Mcginnis CMA 01/21/2018 4:32 PM Signed Last rx 12/25/17. Has OV 01/27/18 Pharmacy electronically requests the following refill(s) Pending Prescriptions Disp Refills GABAPENTIN 100 MG CAPSULE 60 capsule 0 Sig: TAKE 2 CAPSULES AT BEDTIME ESPINOZA: Yes Gabo Mcginnis CMA Allergies As of Date: 01/21/2018 Noted Allergy Reaction BENEDRYL (DIPHENHYDRAMINE) 07/01/2009 Comments: Makes her feel jittery DOXYCYCLINE 08/13/2006 11 - Vomiting IMITREX (SUMATRIPTAN SUCCINATE) 12/06/2009 Comments: chest pain PHENERGAN (PROMETHAZINE HCL) 06/14/2010 5 - Intolerance Comments: restless legs TRAMADOL 07/05/2017 5 - Intolerance Date Reviewed: 10/28/2017 Reviewed by: Lester Rivers ([facility]) Jessica - Fully Assessed Reason for Visit: Refill Request [94] Visit Diagnosis:Restless leg syndrome [G25.81] Order(s):gabapentin (NEURONTIN) 100 mg capsuleTAKE 2 CAPSULES AT BEDTIMEDisp: 60 capsuleRfl: 0 Prescriptions as of 01/21/2018 Sig: GABAPENTIN 100 MG CAPSULE TAKE 2 CAPSULES AT BEDTIME PRAMIPEXOLE 0.5 MG TABLET Take 1 tablet by mouth daily * LEVOTHYROXINE 175 MCG TABLET Take 1 tablet by mouth once d* METFORMIN 1,000 MG TABLET TAKE 1 TABLET TWICE DAILY WIT* FAMOTIDINE 20 MG TABLET Take 1 tablet by mouth daily * JANUVIA 100 MG TABLET TAKE 1 TABLET EVERY DAY FLUTICASONE 50 MCG/ACTUATION * Use 1 Harcourt in each nostril o* ASPIRIN 81 MG CHEWABLE TABLET Take 81 mg by mouth. CARVEDILOL 12.5 MG TABLET Take 1 tablet by mouth twice * PANTOPRAZOLE 40 MG TABLET,DEL* Take 1 tablet by mouth once d* FERROUS SULFATE 325 MG (65 MG* Take 1 tablet by mouth daily * ALBUTEROL SULFATE HFA 90 MCG/* Inhale 2 Puffs as instructed * ATORVASTATIN 20 MG TABLET Take 1 tablet by mouth once d* CLOPIDOGREL 75 MG TABLET Take 1 tablet by mouth once d* CHOLECALCIFEROL (VITAMIN D3) * Take 1 capsule by mouth once * LEVONORGESTREL 20 MCG/24 HR (* 1 Each by INTRAUTERINE route * BLOOD SUGAR DIAGNOSTIC STRIPS Test blood sugar(s) one times* LANCETS Test blood sugar(s) one times* Problem List As Of Date 01/21/2018 Noted Resolved Chest pain, unspecified [R07.9] INVALID FOR*11/21/2011 Essential hypertension, benign [I10] INVALID FOR*11/21/2011 Shortness of breath [R06.02] INVALID FOR*11/21/2011 Restless legs syndrome (RLS) [G25.81] INVALID FOR* Insomnia [G47.00] INVALID FOR* PLANTAR Fasciitis [M72.2] INVALID FOR*11/21/2011 Diarrhea [R19.7] INVALID FOR*09/29/2014 Hemorrhage of gastrointestinal tract [K92.2] INVALID FOR* Internal hemorrhoids without mention of complic*INVALID FOR*11/21/2011 Ganglion of joint [M67.40] INVALID FOR*11/21/2011 Irritable bowel syndrome [K58.9] INVALID FOR* PAP SMEAR OF CERVIX W ASCUS [R87.610] INVALID FOR* Cervical high risk human papillomavirus (HPV) D*INVALID FOR* Female stress incontinence [N39.3] INVALID FOR* Pain in limb [M79.609] INVALID FOR*11/21/2011 Calcaneal spur [M77.30] INVALID FOR*11/21/2011 Depressive disorder, not elsewhere classified [*INVALID FOR*11/21/2011 Microscopic hematuria [R31.29] INVALID FOR*11/21/2011 Pain in joint, pelvic region and thigh [M25.559]INVALID FOR*11/21/2011 Cholelithiasis NOS [K80.20] INVALID FOR*11/21/2011 Hypothyroid [E03.9] INVALID FOR* Ovarian cystic mass [N83.209] INVALID FOR*11/21/2011 Depression, major [F32.9] 11/21/2011 Panic attack [F41.0] INVALID FOR*11/21/2011 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] INVALID FOR* Backache, unspecified [M54.9] INVALID FOR*09/29/2014 Cervicalgia [M54.2] INVALID FOR*09/29/2014 Bipolar 2 disorder (HCC) [F31.81] INVALID FOR* Dysuria [R30.0] INVALID FOR*09/29/2014 Hematuria [R31.9] INVALID FOR* Urinary tract infection [N39.0] INVALID FOR*09/29/2014 Urgency of urination [R39.15] INVALID FOR*09/29/2014 Frequency of urination [R35.0] INVALID FOR*09/29/2014 Low back pain [M54.5] INVALID FOR* Family history of ovarian cancer [Z80.41] INVALID FOR* LADONNA (stress urinary incontinence, female) [N39.*INVALID FOR* Cystocele [XAK4185] INVALID FOR* Type 2 diabetes mellitus without complication (*INVALID FOR* Trigger middle finger of left hand [M65.332] INVALID FOR* Coronary atherosclerosis [I25.10] INVALID FOR* More... Essential hypertension [I10] INVALID FOR* Morbid obesity with BMI of 40.0-44.9, adult (HC*INVALID FOR* GERD (gastroesophageal reflux disease) [K21.9] INVALID FOR* TONIO (obstructive sleep apnea) [G47.33] INVALID FOR* More... Iron deficiency concern [E61.1] INVALID FOR* Presence of drug coated stent in LAD coronary a*INVALID FOR* Family history of ischemic heart disease [Z82.4*INVALID FOR* Presence of drug coated stent in right coronary*INVALID FOR* Vitamin D insufficiency [E55.9] INVALID FOR* Sprain of lumbar region-BWC [S33.5XXA] INVALID FOR* Anterior cervical lymphadenopathy [R59.0] INVALID FOR* More... Axillary lymphadenopathy [R59.0] INVALID FOR*08/14/2016 More... Onychomycosis [B35.1] INVALID FOR* Mild intermittent asthma without complication [*INVALID FOR* Prolonged QT interval [R94.31] INVALID FOR* Chronic pain of left knee [M25.562, G89.29] INVALID FOR* Iron deficiency anemia [D50.9] INVALID FOR* Gastroesophageal reflux disease [K21.9] INVALID FOR* Family history of coronary artery disease [Z82.*INVALID FOR* Hyperlipidemia [E78.5] INVALID FOR* Prescriptions ordered this encounter Disp Refills Start End GABAPENTIN 100 MG CAPSULE 60 c* 0 01/22/2018 02/21/2018 Cmt: This patient participates in our Sync Your Meds program to help increase their medication adherence. We are requesting this refill a month in advance so we can have it on file for next month's picku* Sig: TAKE 2 CAPSULES AT BEDTIME Medications Discontinued During This Encounter gabapentin (NEURONTIN) 100 mg capsule 60 c* 0 12/25/2017 01/22/2018 Route: ORAL Sig: Take 2 capsules by mouth daily at bedtime for 30 days. Disc: Reason for discontinue is not on file. Encounter Status:Closed by LESTER LOPEZ CNP on 01/22/18 OBSOLETE Observed: 11/20/2017 Status: COMPLETED Source: [place] 12:00 AM [facility] REPOSITORY Refill (AGFAMPLE) MAHI TAN ([id number]) 1975 F Date Time Provider Department 11/20/17 LESTER LOPEZ ([facility]) AGFAMPLE During your visit today, we recorded the following information about you: Gabo Mcginnis CMA 11/20/2017 9:54 AM Signed Med sync at -they will keep rx on hold until next month. Last sent in 11/15/17 Pharmacy electronically requests the following refill(s) Pending Prescriptions Disp Refills GABAPENTIN 100 MG CAPSULE 30 capsule 0 Sig: TAKE 1 CAPSULE AT BEDTIME ESPINOZA: Yes Gabo Mcginnis CMA Allergies As of Date: 11/20/2017 Noted Allergy Reaction BENEDRYL (DIPHENHYDRAMINE) 07/01/2009 Comments: Makes her feel jittery DOXYCYCLINE 08/13/2006 11 - Vomiting IMITREX (SUMATRIPTAN SUCCINATE) 12/06/2009 Comments: chest pain PHENERGAN (PROMETHAZINE HCL) 06/14/2010 5 - Intolerance Comments: restless legs TRAMADOL 07/05/2017 5 - Intolerance Date Reviewed: 10/28/2017 [facility]ed by: [facility] Jessica - Fully Assessed Reason for Visit: Refill Request [94] Order(s):gabapentin (NEURONTIN) 100 mg capsuleTAKE 1 CAPSULE AT BEDTIMEDisp: 30 capsuleRfl: 0 Prescriptions as of 11/20/2017 Sig: GABAPENTIN 100 MG CAPSULE TAKE 1 CAPSULE AT BEDTIME PRAMIPEXOLE 0.5 MG TABLET Take 1 tablet by mouth daily * LEVOTHYROXINE 175 MCG TABLET Take 1 tablet by mouth once d* METFORMIN 1,000 MG TABLET TAKE 1 TABLET TWICE DAILY WIT* FAMOTIDINE 20 MG TABLET Take 1 tablet by mouth daily * JANUVIA 100 MG TABLET TAKE 1 TABLET EVERY DAY FLUTICASONE 50 MCG/ACTUATION * Use 1 Harcourt in each nostril o* ASPIRIN 81 MG CHEWABLE TABLET Take 81 mg by mouth. CARVEDILOL 12.5 MG TABLET Take 1 tablet by mouth twice * PANTOPRAZOLE 40 MG TABLET,DEL* Take 1 tablet by mouth once d* FERROUS SULFATE 325 MG (65 MG* Take 1 tablet by mouth daily * ALBUTEROL SULFATE HFA 90 MCG/* Inhale 2 Puffs as instructed * ATORVASTATIN 20 MG TABLET Take 1 tablet by mouth once d* CLOPIDOGREL 75 MG TABLET Take 1 tablet by mouth once d* CHOLECALCIFEROL (VITAMIN D3) * Take 1 capsule by mouth once * LEVONORGESTREL 20 MCG/24 HR (* 1 Each by INTRAUTERINE route * BLOOD SUGAR DIAGNOSTIC STRIPS Test blood sugar(s) one times* LANCETS Test blood sugar(s) one times* Problem List As Of Date 11/20/2017 Noted Resolved Chest pain, unspecified [R07.9] INVALID FOR*11/21/2011 Essential hypertension, benign [I10] INVALID FOR*11/21/2011 Shortness of breath [R06.02] INVALID FOR*11/21/2011 Restless legs syndrome (RLS) [G25.81] INVALID FOR* Insomnia [G47.00] INVALID FOR* PLANTAR Fasciitis [M72.2] INVALID FOR*11/21/2011 Diarrhea [R19.7] INVALID FOR*09/29/2014 Hemorrhage of gastrointestinal tract [K92.2] INVALID FOR* Internal hemorrhoids without mention of complic*INVALID FOR*11/21/2011 Ganglion of joint [M67.40] INVALID FOR*11/21/2011 Irritable bowel syndrome [K58.9] INVALID FOR* PAP SMEAR OF CERVIX W ASCUS [R87.610] INVALID FOR* Cervical high risk human papillomavirus (HPV) D*INVALID FOR* Female stress incontinence [N39.3] INVALID FOR* Pain in limb [M79.609] INVALID FOR*11/21/2011 Calcaneal spur [M77.30] INVALID FOR*11/21/2011 Depressive disorder, not elsewhere classified [*INVALID FOR*11/21/2011 Microscopic hematuria [R31.29] INVALID FOR*11/21/2011 Pain in joint, pelvic region and thigh [M25.559]INVALID FOR*11/21/2011 Cholelithiasis NOS [K80.20] INVALID FOR*11/21/2011 Hypothyroid [E03.9] INVALID FOR* Ovarian cystic mass [N83.209] INVALID FOR*11/21/2011 Depression, major [F32.9] 11/21/2011 Panic attack [F41.0] INVALID FOR*11/21/2011 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] INVALID FOR* Backache, unspecified [M54.9] INVALID FOR*09/29/2014 Cervicalgia [M54.2] INVALID FOR*09/29/2014 Bipolar 2 disorder (HCC) [F31.81] INVALID FOR* Dysuria [R30.0] INVALID FOR*09/29/2014 Hematuria [R31.9] INVALID FOR* Urinary tract infection [N39.0] INVALID FOR*09/29/2014 Urgency of urination [R39.15] INVALID FOR*09/29/2014 Frequency of urination [R35.0] INVALID FOR*09/29/2014 Low back pain [M54.5] INVALID FOR* Family history of ovarian cancer [Z80.41] INVALID FOR* LADONNA (stress urinary incontinence, female) [N39.*INVALID FOR* Cystocele [WMS1902] INVALID FOR* Type 2 diabetes mellitus without complication (*INVALID FOR* Trigger middle finger of left hand [M65.332] INVALID FOR* Coronary atherosclerosis [I25.10] INVALID FOR* More... Essential hypertension [I10] INVALID FOR* Morbid obesity with BMI of 40.0-44.9, adult (HC*INVALID FOR* GERD (gastroesophageal reflux disease) [K21.9] INVALID FOR* TONIO (obstructive sleep apnea) [G47.33] INVALID FOR* More... Iron deficiency concern [E61.1] INVALID FOR* Presence of drug coated stent in LAD coronary a*INVALID FOR* Family history of ischemic heart disease [Z82.4*INVALID FOR* Presence of drug coated stent in right coronary*INVALID FOR* Vitamin D insufficiency [E55.9] INVALID FOR* Sprain of lumbar region-BWC [S33.5XXA] INVALID FOR* Anterior cervical lymphadenopathy [R59.0] INVALID FOR* More... Axillary lymphadenopathy [R59.0] INVALID FOR*08/14/2016 More... Onychomycosis [B35.1] INVALID FOR* Mild intermittent asthma without complication [*INVALID FOR* Prolonged QT interval [R94.31] INVALID FOR* Chronic pain of left knee [M25.562, G89.29] INVALID FOR* Iron deficiency anemia [D50.9] INVALID FOR* Gastroesophageal reflux disease [K21.9] INVALID FOR* Family history of coronary artery disease [Z82.*INVALID FOR* Hyperlipidemia [E78.5] INVALID FOR* Prescriptions ordered this encounter Disp Refills Start End GABAPENTIN 100 MG CAPSULE 30 c* 0 11/20/2017 12/20/2017 Sig: TAKE 1 CAPSULE AT BEDTIME Medications Discontinued During This Encounter gabapentin (NEURONTIN) 100 mg capsule 30 c* 0 11/15/2017 11/20/2017 Route: ORAL Sig: Take 1 capsule by mouth daily at bedtime for 30 days. Disc: Reason for discontinue is not on file. Encounter Status:Closed by LESTER LOPEZ CNP on 11/20/17 MICROALBUMIN,RANDOM Collected: Status: F Source: [place] 10/28/2017 4:02 PM [facility] REPOSITORY TYPE CODE TESTS RESULT OUT OF RANGE REFERENCE UNITS LAB CREAU(LOINC mg/dL ) 32.7 Creatinine,U rine LAB MAR(LOINC) 0.20-2.50 mg/dL 0.57 Microalbumin ,Random LAB MACRE(LOINC 0.10-30.00 mg/g ) MA/Creat 17.43 Ratio Performed By: #### MALBR #### [facility] [address] [place], [place] [address] HEMOGRAM/DIFF Collected: 10/28/2017 Status: F Source: [facility] 4:01 PM [facility]ALTH SYSTEM REPOSITORY TYPE CODE TESTS RESULT OUT OF REFERENCE UNITS RANGE LAB LWBC(LOINC 4.8-10.8 thou/cmm ) WBC 8.5 LAB LRBC(LOINC 4.20-5.40 mil/cmm ) RBC 4.62 LAB LHGB(LOINC 12.0-16.0 g/dL ) Hgb 13.4 LAB LHCT(LOINC 37.0-47.0 % ) Hct 39.9 LAB LMCV(LOINC 81.0-99.0 fl ) MCV 86.4 LAB LMCH(LOINC 27.0-31.0 pg ) MCH 29.0 LAB LMCHC(LOIN 32.0-36.0 % C) MCHC 33.6 LAB LRDW(LOINC 11.5-15.9 % ) RDW 13.8 LAB LPLT(LOINC 150-400 thou/cmm ) Platelet 257 LAB LMPV(LOINC 7.1-10.5 fl ) MPV 9.8 LAB LSEGT(LOIN % C) Seg Neutrophil 64.8 LAB LLYMP(LOIN % C) Lymphocyte 25.6 LAB LMNO(LOINC % ) Monocyte 5.8 LAB DORI(LOINC % ) Eosinophil 3.2 LAB LBASO(LOIN % C) Basophil 0.6 LAB LSEGN(LOIN 3.00-5.67 thou/cmm C) Abs. Neut 5.51 LAB LLYMN(LOIN 1.50-3.65 thou/cmm C) Abs. Lymph 2.18 LAB LMONN(LOIN 0.20-1.00 thou/cmm C) Abs. Hitchcock 0.49 LAB LEOSN(LOIN 0.00-0.41 thou/cmm C) Abs. Eosin 0.27 LAB LBASN(LOIN 0.00-0.08 thou/cmm C) Abs. Baso 0.05 Performed By: #### LCBCD #### [facility] [address] [place] [address] HEMOGLOBIN A1C Collected: 10/28/2017 Status: F Source: [facility] 4:01 [facility]ALTH SYSTEM REPOSITORY TYPE CODE TESTS RESULT OUT OF REFERENCE UNITS RANGE LAB LA1C2(LOINC 4.5-6.2 % ) High Hgb A1c 6.3 LAB ESAV(LOINC) mg/dl Est. Avg. 134 Glucose Performed By: #### LA1C #### [facility] [address] [place] [address] TSH Collected: 10/28/2017 Status: F Source: [facility] 4:01 HEALTH SYSTEM REPOSITORY TYPE CODE TESTS RESULT OUT OF RANGE REFERENCE UNITS LAB LTSH(LOINC) 0.34-4.82 uIU/mL High TSH 8.43 Performed By: #### LTSH #### [facility] [address] [place] [address] HEPATIC PANEL Collected: 10/28/2017 Status: F Source: [facility] 4:01 [facility]ALTH SYSTEM REPOSITORY TYPE CODE TESTS RESULT OUT OF REFERENCE UNITS RANGE LAB LALB(LOINC 3.4-5.0 g/dL ) Albumin Blood 4.4 LAB LALT(LOINC 12-78 U/L ) ALT-SGPT Blood 38 LAB LALKP(LOIN 46-116 U/L C) Alk Phosphatase 98 LAB LTP(LOINC) 6.4-8.2 g/dL Total Protein 8.2 LAB LAGRT(LOIN 0.9-2.4 C) Albumin/Globulin 1.2 Ratio LAB LAST(LOINC 15-37 U/L ) AST-SGOT High Blood 41 LAB LBILT(LOIN 0.2-1.0 mg/dL C) Total Bilirubin 0.7 LAB LDBIL(LOIN 0.00-0.20 mg/dL C) Direct Bilirubin 0.18 LAB LIBIL(LOIN 0.0-0.7 mg/dL C) Indirect Bilirubin 0.5 Performed By: #### LHEPA #### [facility] [address] [place] [address] PROGRESS Observed: 10/28/2017 Status: COMPLETED Source: [facility] 3:24 PM [facility] REPOSIT[facility] HNO ID: [id number] Author: Lester Rivers ([employer]) Jessica Service: (none) Author Type: Nurse Practitioner Type: Progress Notes Filed: 10/28/2017 4:58 PM Note Text: HPI Here today for diabetes follow-up visit. Patient has type 2 diabetes. Feeling well today. Denies dizziness, chest pain, shortness of breath, changes in vision, fatigue, foot pain. Denies numbness and tingling in extremities. Denies polydipsia, polyphagia, polyuria. Home Blood Sugars: WNL per patient Medication Compliance: She is compliant with medications. Low Blood Sugars: None Diet: Avoids carbs Exercise: Treadmill a few times per week. Eye Exam: Due now Podiatry: 6 months ago, cellulitis of toes cleared up Tobacco use - never a smoker Alcohol use - None Couple episodes of bedwetting. Blood sugar was 150 in the middle of the night. Usually gets up once a night to void. Not sleeping well. RLS - Requip making her very sleepy during the daytime. Getting hot flashes at night. No sweating. Wakes her up. Started 2 months ago. She has order for sleep study. Plans to schedule soon LMP = spotting episode once every month or two Tosin Samano cardiology, saw him 4 months ago. GERD - under control 99% of the time Bloating in RUQ. Feels Bulged out, uncomfortable. Not painful. Has had this before and ultrasound showed enlarged liver and spleen, then repeat ultrasound was normal. Review of Systems Constitutional: Negative for chills, fever and malaise/fatigue. HENT: Negative for ear pain, hearing loss, sinus pain and sore throat. Eyes: Negative for blurred vision, double vision and pain. Respiratory: Negative for cough, shortness of breath and wheezing. Cardiovascular: Negative for chest pain, palpitations and leg swelling. Gastrointestinal: Positive for heartburn. Negative for abdominal pain, blood in stool, constipation, diarrhea, nausea and vomiting. Genitourinary: Negative for dysuria, frequency, hematuria and urgency. Musculoskeletal: Negative for joint pain. Skin: Negative for rash. Neurological: Negative for dizziness, tingling, loss of consciousness, weakness and headaches. Endo/Heme/Allergies: Negative for polydipsia. Psychiatric/Behavioral: Negative for depression. The patient has insomnia. The patient is not nervous/anxious. BP 146/88 Pulse 60 Physical Exam Constitutional: She is oriented to person, place, and time and well-developed, well-nourished, and in no distress. HENT: Head: Normocephalic and atraumatic. Right Ear: Hearing, tympanic membrane, external ear and ear canal normal. Left Ear: Hearing, tympanic membrane, external ear and ear canal normal. Nose: Nose normal. Mouth/Throat: Oropharynx is clear and moist and mucous membranes are normal. Eyes: Conjunctivae, EOM and lids are normal. Pupils are equal, round, and reactive to light. Neck: Trachea normal and normal range of motion. Neck supple. Normal carotid pulses and no JVD present. Carotid bruit is not present. Cardiovascular: Normal rate, regular rhythm, normal heart sounds and intact distal pulses. No murmur heard. Pulses: Carotid pulses are 2+ on the right side, and 2+ on the left side. Radial pulses are 2+ on the right side, and 2+ on the left side. Dorsalis pedis pulses are 2+ on the right side, and 2+ on the left side. Pulmonary/Chest: Effort normal and breath sounds normal. She has no wheezes. She has no rhonchi. She has no rales. Abdominal: Soft. Normal appearance and bowel sounds are normal. There is no tenderness. Musculoskeletal: Normal range of motion. She exhibits no edema. Lymphadenopathy: She has no cervical adenopathy. Neurological: She is alert and oriented to person, place, and time. She has normal motor skills. She displays no weakness. No cranial nerve deficit. Gait normal. Skin: Skin is warm and dry. No rash noted. She is not diaphoretic. Psychiatric: Mood, memory, affect and judgment normal. ASSESSMENT/PLAN: 1. Type 2 diabetes mellitus without complication, without long-term current use of insulin ([facility]) - ICD9: 250.00, ICD10: E11.9 (primary diagnosis) Controlled. - Continue current medications = Metformin 1,000 mg BID and Januvia 100 mg daily - Blood glucose monitoring on a once a day schedule - Follow up in 3 months, sooner should any other issues arise. 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 - BP goal of <130/80 - LDL goal of <100 - ALBUMIN RANDOM URINE - HGB A1C 2. Hot flashes - ICD9: 782.62, ICD10: R23.2 Check labs - TSH BLD - CBC + DIFF 3. Bloating - ICD9: 787.3, ICD10: R14.0 Check labs If worsens call office - HEPATIC FUNCTION PNL 4. Fatty liver - ICD9: 571.8, ICD10: K76.0 Check hepatic panel - HEPATIC FUNCTION PNL 5. Mild intermittent asthma without complication - ICD9: 493.90, ICD10: J45.20 Mild intermittent Asthma stable - Continue current meds = albuterol inhaler as needed - Avoidance of triggers recommended - Follow up in 3 months 6. Hyperlipidemia, unspecified hyperlipidemia type - ICD9: 272.4, ICD10: E78.5 Lipid Panel 06/2017 = Total chol 116, trig 112, HDL 37, LDL 57 - good control - Continue current medication atorvastatin 20 mg daily - Encouraged following a low fat, low cholesterol diet. - Continue f/u with cardiology 7. Gastroesophageal reflux disease, esophagitis presence not specified - ICD9: 530.81, ICD10: K21.9 - Discussed lifestyle modifications including losing weight, limiting caffeine, no meals three hours before sleep and head of bed elevation - Continue treatment with Pepcid 20 mg QD and pantoprazole 40 mg daily - She was given referral to heartburn clinic and plans to make appointment. 8. Atherosclerosis of [place] coronary artery without angina pectoris, unspecified whether [place] or transplanted heart - ICD9: 414.01, ICD10: I25.10 Continue care with data reduction technician 9. Iron deficiency anemia, unspecified iron deficiency anemia type - ICD9: 280.9, ICD10: D50.9 Stable. Labs done 06/2017 = Iron 62, HANDH 13.2/40.5 10. Vitamin D insufficiency - ICD9: 268.9, ICD10: E55.9 Component Latest Ref Rng AND Units 02/25/2017 VITAMIN D, 25 [place] TOTAL 30.0 - 100.0 ng/mL 34.5 Continue Vitamin D3 1,000 IU daily 11. TONIO (obstructive sleep apnea) - ICD9: 327.23, ICD10: G47.33 Needs repeat sleep study, she has order and will schedule Continue CPAP 12. Essential hypertension - ICD9: 401.9, ICD10: I10 - suboptimal control - Continue care with cardiology Dr. Samano - On Coreg 12.5 mg BID - Encouraged dietary sodium restriction/DASH diet - Recommend home blood pressure monitoring, to bring results in on next visit - Goal of BP <130/80 13. Postoperative hypothyroidism - ICD9: 244.0, ICD10: E89.0 - Instructed patient on importance of taking on an empty stomach either first thing in the morning or at bedtime. - Continue levothyroxine 150 mcg daily Check TSH 14. Restless legs syndrome (RLS) - ICD9: 333.94, ICD10: G25.81 Stop Requip - Decrease to 2 pills QD x 1 week, then 1 pill QD x 1 week, then stop Start Mirapex 0.125 mg at hs, may increase to 2 pills at hs after 2 weeks. F/U 3 months and prn Lester Lopez CNP CNOV Observed: 10/28/2017 Status: COMPLETED Source: [place] 3:00 PM [facility] REPOSITORY Office Visit (AGFAMPLE) MAHI TAN ([id number]) 1975 F Date Time Provider Department 10/28/17 3:00 PM LESTER LOPEZ (HE[facility]) CHARLINE During your visit today, we recorded the following information about you: Pulse Blood pressure 60/minute 146/88 Gabo Mcginnis CMA 10/28/2017 3:11 PM Signed Pt here for f/u DM. A1C was 6.4 06/17/17. Not due until 12/15/17. Foot exam-05/2017. Eye-07/10/15. Micral 07/2016-due today. JONY Cifuentes CMA 10/28/2017 3:31 PM Signed Put on new RLS not helping, makes her sleepy during the day. Thinks she may be going through early menopause. Wakes up in the middle of the night very hot, no sweating. JONY Cifuentesll, HECTOR 10/28/2017 4:58 PM Signed HPI Here today for diabetes follow-up visit. Patient has type 2 diabetes. Feeling well today. Denies dizziness, chest pain, shortness of breath, changes in vision, fatigue, foot pain. Denies numbness and tingling in extremities. Denies polydipsia, polyphagia, polyuria. Home Blood Sugars: WNL per patient Medication Compliance: She is compliant with medications. Low Blood Sugars: None Diet: Avoids carbs Exercise: Treadmill a few times per week. Eye Exam: Due now Podiatry: 6 months ago, cellulitis of toes cleared up Tobacco use - never a smoker Alcohol use - None Couple episodes of bedwetting. Blood sugar was 150 in the middle of the night. Usually gets up once a night to void. Not sleeping well. RLS - Requip making her very sleepy during the daytime. Getting hot flashes at night. No sweating. Wakes her up. Started 2 months ago. She has order for sleep study. Plans to schedule soon LMP = spotting episode once every month or two Tosin Samano cardiology, saw him 4 months ago. GERD - under control 99% of the time Bloating in RUQ. Feels Bulged out, uncomfortable. Not painful. Has had this before and ultrasound showed enlarged liver and spleen, then repeat ultrasound was normal. Review of Systems Constitutional: Negative for chills, fever and malaise/fatigue. HENT: Negative for ear pain, hearing loss, sinus pain and sore throat. Eyes: Negative for blurred vision, double vision and pain. Respiratory: Negative for cough, shortness of breath and wheezing. Cardiovascular: Negative for chest pain, palpitations and leg swelling. Gastrointestinal: Positive for heartburn. Negative for abdominal pain, blood in stool, constipation, diarrhea, nausea and vomiting. Genitourinary: Negative for dysuria, frequency, hematuria and urgency. Musculoskeletal: Negative for joint pain. Skin: Negative for rash. Neurological: Negative for dizziness, tingling, loss of consciousness, weakness and headaches. Endo/Heme/Allergies: Negative for polydipsia. Psychiatric/Behavioral: Negative for depression. The patient has insomnia. The patient is not nervous/anxious. BP 146/88 Pulse 60 Physical Exam Constitutional: She is oriented to person, place, and time and well-developed, well-nourished, and in no distress. HENT: Head: Normocephalic and atraumatic. Right Ear: Hearing, tympanic membrane, external ear and ear canal normal. Left Ear: Hearing, tympanic membrane, external ear and ear canal normal. Nose: Nose normal. Mouth/Throat: Oropharynx is clear and moist and mucous membranes are normal. Eyes: Conjunctivae, EOM and lids are normal. Pupils are equal, round, and reactive to light. Neck: Trachea normal and normal range of motion. Neck supple. Normal carotid pulses and no JVD present. Carotid bruit is not present. Cardiovascular: Normal rate, regular rhythm, normal heart sounds and intact distal pulses. No murmur heard. Pulses: Carotid pulses are 2+ on the right side, and 2+ on the left side. Radial pulses are 2+ on the right side, and 2+ on the left side. Dorsalis pedis pulses are 2+ on the right side, and 2+ on the left side. Pulmonary/Chest: Effort normal and breath sounds normal. She has no wheezes. She has no rhonchi. She has no rales. Abdominal: Soft. Normal appearance and bowel sounds are normal. There is no tenderness. Musculoskeletal: Normal range of motion. She exhibits no edema. Lymphadenopathy: She has no cervical adenopathy. Neurological: She is alert and oriented to person, place, and time. She has normal motor skills. She displays no weakness. No cranial nerve deficit. Gait normal. Skin: Skin is warm and dry. No rash noted. She is not diaphoretic. Psychiatric: Mood, memory, affect and judgment normal. ASSESSMENT/PLAN: 1. Type 2 diabetes mellitus without complication, without long-term current use of insulin (HCC) - ICD9: 250.00, ICD10: E11.9 (primary diagnosis) Controlled. - Continue current medications = Metformin 1,000 mg BID and Januvia 100 mg daily - Blood glucose monitoring on a once a day schedule - Follow up in 3 months, sooner should any other issues arise. - Discussed diabetic education issues of mcc diabetic complications and diet with patient. - BP goal of ANDlt;130/80 - LDL goal of ANDlt;100 - ALBUMIN RANDOM URINE - HGB A1C 2. Hot flashes - ICD9: 782.62, ICD10: R23.2 Check labs - TSH BLD - CBC + DIFF 3. Bloating - ICD9: 787.3, ICD10: R14.0 Check labs If worsens call office - HEPATIC FUNCTION PNL 4. Fatty liver - ICD9: 571.8, ICD10: K76.0 Check hepatic panel - HEPATIC FUNCTION PNL 5. Mild intermittent asthma without complication - ICD9: 493.90, ICD10: J45.20 Mild intermittent Asthma stable - Continue current meds = albuterol inhaler as needed - Avoidance of triggers recommended - Follow up in 3 months 6. Hyperlipidemia, unspecified hyperlipidemia type - ICD9: 272.4, ICD10: E78.5 Lipid Panel 06/2017 = Total chol 116, trig 112, HDL 37, LDL 57 - good control - Continue current medication atorvastatin 20 mg daily - Encouraged following a low fat, low cholesterol diet. - Continue f/u with cardiology 7. Gastroesophageal reflux disease, esophagitis presence not specified - ICD9: 530.81, ICD10: K21.9 - Discussed lifestyle modifications including losing weight, limiting caffeine, no meals three hours before sleep and head of bed elevation - Continue treatment with Pepcid 20 mg QD and pantoprazole 40 mg daily - She was given referral to heartburn clinic and plans to make appointment. 8. Atherosclerosis of [place] coronary artery without angina pectoris, unspecified whether [place] or transplanted heart - ICD9: 414.01, ICD10: I25.10 Continue care with data reduction technician 9. Iron deficiency anemia, unspecified iron deficiency anemia type - ICD9: 280.9, ICD10: D50.9 Stable. Labs done 06/2017 = Iron 62, HANDamp;H 13.2/40.5 10. Vitamin D insufficiency - ICD9: 268.9, ICD10: E55.9 Component Latest Ref Rng ANDamp; Units 02/25/2017 VITAMIN D, 25 OH TOTAL 30.0 - 100.0 ng/mL 34.5 Continue Vitamin D3 1,000 IU daily 11. TONIO (obstructive sleep apnea) - ICD9: 327.23, ICD10: G47.33 Needs repeat sleep study, she has order and will schedule Continue CPAP 12. Essential hypertension - ICD9: 401.9, ICD10: I10 - suboptimal control - Continue care with cardiology Dr. Samano - On Coreg 12.5 mg BID - Encouraged dietary sodium restriction/DASH diet - Recommend home blood pressure monitoring, to bring results in on next visit - Goal of BP ANDlt;130/80 13. Postoperative hypothyroidism - ICD9: 244.0, ICD10: E89.0 - Instructed patient on importance of taking on an empty stomach either first thing in the morning or at bedtime. - Continue levothyroxine 150 mcg daily Check TSH 14. Restless legs syndrome (RLS) - ICD9: 333.94, ICD10: G25.81 Stop Requip - Decrease to 2 pills QD x 1 week, then 1 pill QD x 1 week, then stop Start Mirapex 0.125 mg at hs, may increase to 2 pills at hs after 2 weeks. F/U 3 months and prn HECTOR Mondragon CNP 10/28/2017 3:46 PM Signed Requip - Stop morning dose for 1 week, then decrease to 1 pill at night for 1 week, then stop Mirapex - Start one pill at night, may increase to 2 pills at night after 2 weeks. Referring Provider: LESTER LOPEZ ([facility]) [[id number]] Allergies As of Date: 10/28/2017 Noted Allergy Reaction BENEDRYL (DIPHENHYDRAMINE) 07/01/2009 Comments: Makes her feel jittery DOXYCYCLINE 08/13/2006 11 - Vomiting IMITREX (SUMATRIPTAN SUCCINATE) 12/06/2009 Comments: chest pain PHENERGAN (PROMETHAZINE HCL) 06/14/2010 5 - Intolerance Comments: restless legs TRAMADOL 07/05/2017 5 - Intolerance Date Reviewed: 10/28/2017 Reviewed by: Lester Rivers ([facility]) Jessica - Fully Assessed Reason for Visit: Diabetes [34] Primary Visit Diagnosis:Type 2 diabetes mellitus without complication, without long-term current use of insulin (HCC) [E11.9] Other Visit Diagnoses:Hot flashes [R23.2] Bloating [R14.0] Fatty liver [K76.0] Mild intermittent asthma without complication [J45.20] Hyperlipidemia, unspecified hyperlipidemia type [E78.5] Gastroesophageal reflux disease, esophagitis presence not specified [K21.9] Atherosclerosis of [place] coronary artery without angina pectoris, unspecified whether [place] or transplanted heart [I25.10] Iron deficiency anemia, unspecified iron deficiency anemia type [D50.9] Vitamin D insufficiency [E55.9] TONIO (obstructive sleep apnea) [G47.33] Essential hypertension [I10] Postoperative hypothyroidism [E89.0] Restless legs syndrome (RLS) [G25.81] Order(s):ALBUMIN RANDOM URINE [SQUALBR] Order #: [id number] FUTURE TSH BLD [SQTSH] Order #: [id number] FUTURE HEPATIC FUNCTION PNL [SQHFP] Order #: [id number] FUTURE CBC + DIFF [SQCBCDIF] Order #: [id number] FUTURE pramipexole (MIRAPEX) 0.125 mg tabletTake 1 tablet by mouth daily at bedtime.Disp: 60 tabletRfl: 2 HGB A1C [[id number]] Order #: [id number] FUTURE Prescriptions as of 10/28/2017 Sig: METFORMIN 1,000 MG TABLET TAKE 1 TABLET TWICE DAILY WIT* FAMOTIDINE 20 MG TABLET Take 1 tablet by mouth daily * LEVOTHYROXINE 150 MCG TABLET Take 1 tablet by mouth daily * JANUVIA 100 MG TABLET TAKE 1 TABLET EVERY DAY FLUTICASONE 50 MCG/ACTUATION * Use 1 Harcourt in each nostril o* ASPIRIN 81 MG CHEWABLE TABLET Take 81 mg by mouth. CARVEDILOL 12.5 MG TABLET Take 1 tablet by mouth twice * PANTOPRAZOLE 40 MG TABLET,DEL* Take 1 tablet by mouth once d* FERROUS SULFATE 325 MG (65 MG* Take 1 tablet by mouth daily * ALBUTEROL SULFATE HFA 90 MCG/* Inhale 2 Puffs as instructed * ATORVASTATIN 20 MG TABLET Take 1 tablet by mouth once d* CLOPIDOGREL 75 MG TABLET Take 1 tablet by mouth once d* CHOLECALCIFEROL (VITAMIN D3) * Take 1 capsule by mouth once * LEVONORGESTREL 20 MCG/24 HR (* 1 Each by INTRAUTERINE route * BLOOD SUGAR DIAGNOSTIC STRIPS Test blood sugar(s) one times* LANCETS Test blood sugar(s) one times* PRAMIPEXOLE 0.125 MG TABLET Take 1 tablet by mouth daily * Medication notes this encounter BENZONATATE 100 MG CAPSULE >> Gabo Mcginnis CMA 10/28/2017 3:10 PM >> GABO MCELROY SatOct 28, 2017 3:10 PM Finished course CEPHALEXIN 500 MG CAPSULE >> Gabo Mcginnis CMA 10/28/2017 3:10 PM >> GABO MCELROY Mon Oct 28, 2017 3:10 PM Finished course DOXYCYCLINE HYCLATE 100 MG TABLET >> [facility]/28/2017 3:10 PM >> GABO MCELROY [facility] Oct 28, 2017 3:10 PM Not taking FLUVIRIN [id number] (PF) 45 MCG(15 MCG X3)/0.5 ML INTRAMUSCULAR SYRINGE >> [facility] 10[facility]28/2017 3:10 PM >> GABO MCELROY [facility] Oct 28, 2017 3:10 PM Added to shot record [id number] 3.5 MG/ML-10,000 UNIT/ML-1 % EAR SOLUTION >> [facility] 10/28/2017 3:10 PM >> GABO MCELROY [facility] Oct 28, 2017 3:10 PM Not taking AMOXICILLIN 500 MG-POTASSIUM CLAVULANATE 125 MG TABLET >> [facility] 10/28/2017 3:07 PM >> GABO MCELROY [facility] Oct 28, 2017 3:07 PM Finished course GENTAMICIN 0.1 % TOPICAL CREAM >> [facility] 10/28/2017 3:08 PM >> GABO MCELROY [facility] Oct 28, 2017 3:08 PM Not taking SULFAMETHOXAZOLE 800 MG-TRIMETHOPRIM 160 MG TABLET >> [facility] 10/28/2017 3:08 PM >> GABO MCELROY [facility] Oct 28, 2017 3:08 PM Not taking KETOCONAZOLE 2 % TOPICAL CREAM >> [facility] 10/28/2017 3:08 PM >> GABO MCELROY [facility] Oct 28, 2017 3:08 PM Not taking Problem List As Of Date 10/28/2017 Noted Resolved Chest pain, unspecified [R07.9] INVALID FOR*11/21/2011 Essential hypertension, benign [I10] INVALID FOR*11/21/2011 Shortness of breath [R06.02] INVALID FOR*11/21/2011 Restless legs syndrome (RLS) [G25.81] INVALID FOR* Insomnia [G47.00] INVALID FOR* PLANTAR Fasciitis [M72.2] INVALID FOR*11/21/2011 Diarrhea [R19.7] INVALID FOR*09/29/2014 Hemorrhage of gastrointestinal tract [K92.2] INVALID FOR* Internal hemorrhoids without mention of complic*INVALID FOR*11/21/2011 Ganglion of joint [M67.40] INVALID FOR*11/21/2011 Irritable bowel syndrome [K58.9] INVALID FOR* PAP SMEAR OF CERVIX W ASCUS [R87.610] INVALID FOR* Cervical high risk human papillomavirus (HPV) D*INVALID FOR* Female stress incontinence [N39.3] INVALID FOR* Pain in limb [M79.609] INVALID FOR*11/21/2011 Calcaneal spur [M77.30] INVALID FOR*11/21/2011 Depressive disorder, not elsewhere classified [*INVALID FOR*11/21/2011 Microscopic hematuria [R31.29] INVALID FOR*11/21/2011 Pain in joint, pelvic region and thigh [M25.559]INVALID FOR*11/21/2011 Cholelithiasis NOS [K80.20] INVALID FOR*11/21/2011 Hypothyroid [E03.9] INVALID FOR* Ovarian cystic mass [N83.209] INVALID FOR*11/21/2011 Depression, major [F32.9] 11/21/2011 Panic attack [F41.0] INVALID FOR*11/21/2011 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] INVALID FOR* Backache, unspecified [M54.9] INVALID FOR*09/29/2014 Cervicalgia [M54.2] INVALID FOR*09/29/2014 Bipolar 2 disorder (HCC) [F31.81] INVALID FOR* Dysuria [R30.0] INVALID FOR*09/29/2014 Hematuria [R31.9] INVALID FOR* Urinary tract infection [N39.0] INVALID FOR*09/29/2014 Urgency of urination [R39.15] INVALID FOR*09/29/2014 Frequency of urination [R35.0] INVALID FOR*09/29/2014 Low back pain [M54.5] INVALID FOR* Family history of ovarian cancer [Z80.41] INVALID FOR* LADONNA (stress urinary incontinence, female) [N39.*INVALID FOR* Cystocele [KCX4670] INVALID FOR* Type 2 diabetes mellitus without complication (*INVALID FOR* Trigger middle finger of left hand [M65.332] INVALID FOR* Coronary atherosclerosis [I25.10] INVALID FOR* More... Essential hypertension [I10] INVALID FOR* Morbid obesity with BMI of 40.0-44.9, adult (HC*INVALID FOR* GERD (gastroesophageal reflux disease) [K21.9] INVALID FOR* TONIO (obstructive sleep apnea) [G47.33] INVALID FOR* More... Iron deficiency concern [E61.1] INVALID FOR* Presence of drug coated stent in LAD coronary a*INVALID FOR* Family history of ischemic heart disease [Z82.4*INVALID FOR* Presence of drug coated stent in right coronary*INVALID FOR* Vitamin D insufficiency [E55.9] INVALID FOR* Sprain of lumbar region-BWC [S33.5XXA] INVALID FOR* Anterior cervical lymphadenopathy [R59.0] INVALID FOR* More... Axillary lymphadenopathy [R59.0] INVALID FOR*08/14/2016 More... Onychomycosis [B35.1] INVALID FOR* Mild intermittent asthma without complication [*INVALID FOR* Prolonged QT interval [R94.31] INVALID FOR* Chronic pain of left knee [M25.562, G89.29] INVALID FOR* Iron deficiency anemia [D50.9] INVALID FOR* Gastroesophageal reflux disease [K21.9] INVALID FOR* Family history of coronary artery disease [Z82.*INVALID FOR* Hyperlipidemia [E78.5] INVALID FOR* Other instructions from your clinician: Requip - Stop morning dose for 1 week, then decrease to 1 pill at night for 1 week, then stop Mirapex - Start one pill at night, may increase to 2 pills at night after 2 weeks. Visit Notes: >> Gabo Mcginnis SatOct 28, 2017 3:06 PM Status: Signed Pt here for f/u DM. A1C was 6.4 06/17/17. Not due until 12/15/17. Foot exam-05/2017. Eye-07/10/15. Micral 07/2016-due today. Gabo Mcginnis CMA >> Gabo (Jony) Ras SatOct 28, 2017 3:15 PM Status: Signed Put on new RLS not helping, makes her sleepy during the day. Thinks she may be going through early menopause. Wakes up in the middle of the night very hot, no sweating. Gabo Mcginnis CMA Prescriptions ordered this encounter Disp Refills Start End PRAMIPEXOLE 0.125 MG TABLET 60 t* 2 10/28/2017 Route: ORAL Sig: Take 1 tablet by mouth daily at bedtime. Medications Discontinued During This Encounter rOPINIRole (REQUIP) 0.25 mg tablet 90 t* 1 10/28/2017 10/28/2017 Sig: TAKE 1 TABLET BY MOUTH THREE TIMES DAILY Disc: Reason for discontinue is not on file. amoxicillin-clavulanic acid (AUGMENT* 04/11/2017 10/28/2017 Class: Historical Med Sig: Disc: Reason for discontinue is not on file. benzonatate (TESSALON PERLE) 100 mg * 08/20/2017 10/28/2017 Class: Historical Med Sig: Disc: Reason for discontinue is not on file. cephALEXin (KEFLEX) 500 mg capsule 09/10/2017 10/28/2017 Class: Historical Med Sig: Disc: Reason for discontinue is not on file. doxycycline (VIBRA-TABS) 100 mg tabl* 07/29/2017 10/28/2017 Class: Historical Med Sig: Disc: Reason for discontinue is not on file. gentamicin 0.1% 0.1 % cream 06/07/2017 10/28/2017 Class: Historical Med Sig: Disc: Reason for discontinue is not on file. FLUVIRIN [id number], PF, 45 mcg (15 m* 08/13/2017 10/28/2017 Class: Historical Med Sig: Disc: Reason for discontinue is not on file. ketoconazole (NIZORAL) 2 % cream 30 g 2 04/02/2016 10/28/2017 Sig: APPLY TO AREA BID Disc: Reason for discontinue is not on file. [id number] (C* 07/03/2017 10/28/2017 Class: Historical Med Sig: Disc: Reason for discontinue is not on file. sulfamethoxazole-trimethoprim (BACTR* 14 t* 0 06/17/2017 10/28/2017 Route: ORAL Sig: Take 1 tablet by mouth twice daily. Disc: Reason for discontinue is not on file. Disposition: Return in about 3 months (around 01/25/2018), or if symptoms worsen or fail to improve, for Diabetes. Follow-up and Disposition History Recorded Encounter Status:Closed by LESTER LOPEZ CNP on 10/28/17 OBSOLETE Observed: 10/28/2017 Status: COMPLETED Source: [place] 12:00 AM [facility] REPOS[facility] Refill (AGFAMPLE) MAHI TAN ([id number]) 1975 F Date Time Provider Department 10/28/17 LESTER LOPEZ ([facility]) AGFAMPLE During your visit today, we recorded the following information about you: Gabo Mcginnis CMA 10/28/2017 10:21 AM Signed Med sync pt at DD. Last rx 09/20/17, has OV today. Pharmacy electronically requests the following refill(s) Pending Prescriptions Disp Refills ROPINIROLE 0.25 MG TABLET 90 tablet 1 Sig: TAKE 1 TABLET BY MOUTH THREE TIMES DAILY ESPNIOZA: Yes Gabo Mcginnis CMA Allergies As of Date: 10/28/2017 Noted Allergy Reaction BENEDRYL (DIPHENHYDRAMINE) 07/01/2009 Comments: Makes her feel jittery DOXYCYCLINE 08/13/2006 11 - Vomiting IMITREX (SUMATRIPTAN SUCCINATE) 12/06/2009 Comments: chest pain PHENERGAN (PROMETHAZINE HCL) 06/14/2010 5 - Intolerance Comments: restless legs Date Reviewed: 06/18/2017 Reviewed by: Lester Rivers ([facility]) Jessica - Fully Assessed Reason for Visit: Refill Request [94] Order(s):rOPINIRole (REQUIP) 0.25 mg tabletTAKE 1 TABLET BY MOUTH THREE TIMES DAILYDisp: 90 tabletRfl: 1 Prescriptions as of 10/28/2017 Sig: ROPINIROLE 0.25 MG TABLET TAKE 1 TABLET BY MOUTH THREE * METFORMIN 1,000 MG TABLET TAKE 1 TABLET TWICE DAILY WIT* FAMOTIDINE 20 MG TABLET Take 1 tablet by mouth daily * LEVOTHYROXINE 150 MCG TABLET Take 1 tablet by mouth daily * JANUVIA 100 MG TABLET TAKE 1 TABLET EVERY DAY FLUTICASONE 50 MCG/ACTUATION * Use 1 Harcourt in each nostril o* AMOXICILLIN 500 MG-POTASSIUM * ASPIRIN 81 MG CHEWABLE TABLET Take 81 mg by mouth. GENTAMICIN 0.1 % TOPICAL CREAM SULFAMETHOXAZOLE 800 MG-TRIME* Take 1 tablet by mouth twice * CARVEDILOL 12.5 MG TABLET Take 1 tablet by mouth twice * PANTOPRAZOLE 40 MG TABLET,DEL* Take 1 tablet by mouth once d* FERROUS SULFATE 325 MG (65 MG* Take 1 tablet by mouth daily * ALBUTEROL SULFATE HFA 90 MCG/* Inhale 2 Puffs as instructed * ATORVASTATIN 20 MG TABLET Take 1 tablet by mouth once d* CLOPIDOGREL 75 MG TABLET Take 1 tablet by mouth once d* KETOCONAZOLE 2 % TOPICAL CREAM APPLY TO AREA BID CHOLECALCIFEROL (VITAMIN D3) * Take 1 capsule by mouth once * LEVONORGESTREL 20 MCG/24 HR (* 1 Each by INTRAUTERINE route * BLOOD SUGAR DIAGNOSTIC STRIPS Test blood sugar(s) one times* LANCETS Test blood sugar(s) one times* Problem List As Of Date 10/28/2017 Noted Resolved Chest pain, unspecified [R07.9] INVALID FOR*11/21/2011 Essential hypertension, benign [I10] INVALID FOR*11/21/2011 Shortness of breath [R06.02] INVALID FOR*11/21/2011 RESTLESS LEGS SYNDROME [G25.81] INVALID FOR* INSOMNIA NOS [G47.00] INVALID FOR* PLANTAR Fasciitis [M72.2] INVALID FOR*11/21/2011 Diarrhea [R19.7] INVALID FOR*09/29/2014 GASTROINTEST HEMORR NOS [K92.2] INVALID FOR* Internal hemorrhoids without mention of complic*INVALID FOR*11/21/2011 Ganglion of joint [M67.40] INVALID FOR*11/21/2011 IRRITABLE COLON [K58.9] INVALID FOR* PAP SMEAR OF CERVIX W ASCUS [R87.610] INVALID FOR* CERVICAL HPV DNA POSITIVE [R87.810] INVALID FOR* FEMALE STRESS INCONTINENCE [N39.3] INVALID FOR* Pain in limb [M79.609] INVALID FOR*11/21/2011 Calcaneal spur [M77.30] INVALID FOR*11/21/2011 Depressive disorder, not elsewhere classified [*INVALID FOR*11/21/2011 Microscopic hematuria [R31.29] INVALID FOR*11/21/2011 Pain in joint, pelvic region and thigh [M25.559]INVALID FOR*11/21/2011 Cholelithiasis NOS [K80.20] INVALID FOR*11/21/2011 Hypothyroid [E03.9] INVALID FOR* Ovarian cystic mass [N83.209] INVALID FOR*11/21/2011 Depression, major [F32.9] 11/21/2011 Panic attack [F41.0] INVALID FOR*11/21/2011 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] INVALID FOR* Backache, unspecified [M54.9] INVALID FOR*09/29/2014 Cervicalgia [M54.2] INVALID FOR*09/29/2014 Bipolar 2 disorder [F31.81] INVALID FOR* Dysuria [R30.0] INVALID FOR*09/29/2014 Hematuria [R31.9] INVALID FOR* Urinary tract infection [N39.0] INVALID FOR*09/29/2014 Urgency of urination [R39.15] INVALID FOR*09/29/2014 Frequency of urination [R35.0] INVALID FOR*09/29/2014 Low back pain [M54.5] INVALID FOR* Family history of ovarian cancer [Z80.41] INVALID FOR* LADONNA (stress urinary incontinence, female) [N39.*INVALID FOR* Cystocele [VDK7159] INVALID FOR* Type 2 diabetes mellitus without complication (*INVALID FOR* Trigger middle finger of left hand [M65.332] INVALID FOR* CAD (coronary artery disease) [I25.10] INVALID FOR* More... Essential hypertension [I10] INVALID FOR* Morbid obesity with BMI of 40.0-44.9, adult (HC*INVALID FOR* GERD (gastroesophageal reflux disease) [K21.9] INVALID FOR* TONIO (obstructive sleep apnea) [G47.33] INVALID FOR* More... Iron deficiency concern [E61.1] INVALID FOR* Presence of drug coated stent in LAD coronary a*INVALID FOR* Family history of ischemic heart disease [Z82.4*INVALID FOR* Presence of drug coated stent in right coronary*INVALID FOR* Vitamin D insufficiency [E55.9] INVALID FOR* Sprain of lumbar region-BWC [S33.5XXA] INVALID FOR* Anterior cervical lymphadenopathy [R59.0] INVALID FOR* More... Axillary lymphadenopathy [R59.0] INVALID FOR*08/14/2016 More... Onychomycosis [B35.1] INVALID FOR* Mild intermittent asthma without complication [*INVALID FOR* Prolonged QT interval [R94.31] INVALID FOR* Chronic pain of left knee [M25.562, G89.29] INVALID FOR* Iron deficiency anemia [D50.9] INVALID FOR* Gastroesophageal reflux disease [K21.9] INVALID FOR* Prescriptions ordered this encounter Disp Refills Start End ROPINIROLE 0.25 MG TABLET 90 t* 1 10/28/2017 Sig: TAKE 1 TABLET BY MOUTH THREE TIMES DAILY Medications Discontinued During This Encounter rOPINIRole (REQUIP) 0.25 mg tablet 90 t* 1 09/20/2017 10/28/2017 Cmt: this is a med sync patient. the current rx doesn,t have enough left for a full month. Please send a new rx and we will d/c the current one. thank you! Sig: TAKE 1 TABLET BY MOUTH THREE TIMES DAILY Disc: Reason for discontinue is not on file. Encounter Status:Closed by LESTER LOPEZ CNP on 10/28/17 VARICELLA ZOSTER Collected: 09/25/2017 Status: F Source: [facility] VIRUS,ABS SCR 10:48 AM [facility] TYPE CODE TESTS RESULT OUT OF RANGE REFERENCE UNITS LAB VZVAB Normal Varicella Immune Zoster Virus,Abs Scr Result Comment: Assay performed using Diasorin CLIA methodology. Test Performed by [facility] [address] [place] [id number] Performed By: #### RUBIS, RBEOLIG, HBSABS, MUMPSIGG, VZVAB #### Unless otherwise noted, all testing performed by [address] [address] CLIA: [id number] Professor Of Oceanography: Yazan Almonte M.D. RUBEOLA ABS, IGG Collected: 09/25/2017 Status: F Source: [facility] (IMMUNITY) 10:48 AM [facility] TYPE CODE TESTS RESULT OUT OF RANGE REFERENCE UNITS LAB RBEOLIG Normal Rubeola Abs, Immune IgG (Immunity) Result Comment: Assay performed using Diasorin CLIA methodology. Test Performed by [facility] [address] [address] Performed By: #### RUBIS, RBEOLIG, HBSABS, MUMPSIGG, VZVAB #### Unless otherwise noted, all testing performed by [place] [address] CLIA: [id number] Professor Of Oceanography: Yazan Almonte M.D. MUMPS, IGG Collected: 09/25/2017 Status: F Source: [facility] 10:48 AM [facility] TYPE CODE TESTS RESULT OUT OF RANGE REFERENCE UNITS LAB MUMPSIGG Negative Abnormal Positive Mumps, IgG Result Comment: Assay performed using Stylyt CLIA methodology[place] [address] Performed By: #### RUBIS, RBEOLIG, HBSABS, MUMPSIGG, VZVAB #### Unless otherwise noted, all testing performed by [place] [phone] CLIA: [id number] Professor Of Oceanography: Yazan Almonte M.D. RUBELLA ABS, IMMUNE Collected: 09/25/2017 Status: F Source: [facility] 10:48 AM [facility] TYPE CODE TESTS RESULT OUT OF RANGE REFERENCE UNITS LAB RUBIS Normal Rubella Abs, Immune Immune Status Result Comment: Rubella Reference Range: <= 9.9 IU/mL Non-immune 10.0 - 14.9 IU/mL Immune, Low Positive >= 15.0 IU/mL Immune Test performed using 360pi Immunodiagnostic system. Test Performed by [facility] [place] [address] LAB RUBIGGIV IU/mL Normal Rubella IgG Instrument Value 67.80 Performed By: #### RUBIS, RBEOLIG, HBSABS, MUMPSIGG, VZVAB #### Unless otherwise noted, all testing performed by [place] [address] CLIA: [id number] Professor Of Oceanography: Yazan Almonte M.D. HEPATITIS B SURFACE Collected: 09/25/2017 Status: F Source: [facility] ABS 10:48 AM [facility] TYPE CODE TESTS RESULT OUT OF REFERENCE UNITS RANGE LAB HBSABQTS mIU/mL Normal Hepatitis B [address] Ab, Qt Result Comment: REFERENCE VALUE Unvaccinated: <5.0 Vaccinated: >=12.0 Test Performed by: [facility] [address] [place] [address] LAB HBSABS Normal Hepatitis B Positive Surface Abs Result Comment: Patient is considered to be immune to infection with HBV. REFERENCE VALUE Unvaccinated: Negative Vaccinated: Positive Performed By: #### RUBIS, RBEOLIG, HBSABS, MUMPSIGG, VZVAB #### Unless otherwise noted, all testing performed by [facility] [address] [place], [place] [address] CLIA: [id number] Professor Of Oceanography: Rell Garcias Observed: 09/25/2017 Status: COMPLETED Source: [place] 12:00 AM [facility] REPOSITORY Refill (FAMPWS) MAHI TAN ([id number]) 1975 F Date Time Provider Department 09/25/17 LESTER LOPEZ ([facility]) FAMPWS During your visit today, we recorded the following information about you: Gabo Mcginnis CMA 09/25/2017 10:49 AM Signed Has OV 10/01/17 Pharmacy electronically requests the following refill(s) Pending Prescriptions Disp Refills METFORMIN 1,000 MG TABLET 60 tablet 11 Sig: TAKE 1 TABLET TWICE DAILY WITH meals ESPINOZA: Yes Gabo Ars, [employer] Allergies As of Date: 09/25/2017 Noted Allergy Reaction BENEDRYL (DIPHENHYDRAMINE) 07/01/2009 Comments: Makes her feel jittery DOXYCYCLINE 08/13/2006 11 - Vomiting IMITREX (SUMATRIPTAN SUCCINATE) 12/06/2009 Comments: chest pain PHENERGAN (PROMETHAZINE HCL) 06/14/2010 5 - Intolerance Comments: restless legs Date Reviewed: 06/18/2017 Reviewed by: Lester Rivers ([facility]) Jessica - Fully Assessed Reason for Visit: Refill Request [94] Order(s):metFORMIN (GLUCOPHAGE) 1,000 mg tabletTAKE 1 TABLET TWICE DAILY WITH mealsDisp: 60 tabletRfl: 11 Prescriptions as of 09/25/2017 Sig: METFORMIN 1,000 MG TABLET TAKE 1 TABLET TWICE DAILY WIT* ROPINIROLE 0.25 MG TABLET TAKE 1 TABLET BY MOUTH THREE * FAMOTIDINE 20 MG TABLET Take 1 tablet by mouth daily * LEVOTHYROXINE 150 MCG TABLET Take 1 tablet by mouth daily * JANUVIA 100 MG TABLET TAKE 1 TABLET EVERY DAY FLUTICASONE 50 MCG/ACTUATION * Use 1 Harcourt in each nostril o* AMOXICILLIN 500 MG-POTASSIUM * ASPIRIN 81 MG CHEWABLE TABLET Take 81 mg by mouth. GENTAMICIN 0.1 % TOPICAL CREAM SULFAMETHOXAZOLE 800 MG-TRIME* Take 1 tablet by mouth twice * CARVEDILOL 12.5 MG TABLET Take 1 tablet by mouth twice * PANTOPRAZOLE 40 MG TABLET,DEL* Take 1 tablet by mouth once d* FERROUS SULFATE 325 MG (65 MG* Take 1 tablet by mouth daily * ALBUTEROL SULFATE HFA 90 MCG/* Inhale 2 Puffs as instructed * ATORVASTATIN 20 MG TABLET Take 1 tablet by mouth once d* CLOPIDOGREL 75 MG TABLET Take 1 tablet by mouth once d* KETOCONAZOLE 2 % TOPICAL CREAM APPLY TO AREA BID CHOLECALCIFEROL (VITAMIN D3) * Take 1 capsule by mouth once * LEVONORGESTREL 20 MCG/24 HR (* 1 Each by INTRAUTERINE route * BLOOD SUGAR DIAGNOSTIC STRIPS Test blood sugar(s) one times* LANCETS Test blood sugar(s) one times* Problem List As Of Date 09/25/2017 Noted Resolved Chest pain, unspecified [R07.9] INVALID FOR*11/21/2011 Essential hypertension, benign [I10] INVALID FOR*11/21/2011 Shortness of breath [R06.02] INVALID FOR*11/21/2011 RESTLESS LEGS SYNDROME [G25.81] INVALID FOR* INSOMNIA NOS [G47.00] INVALID FOR* PLANTAR Fasciitis [M72.2] INVALID FOR*11/21/2011 Diarrhea [R19.7] INVALID FOR*09/29/2014 GASTROINTEST HEMORR NOS [K92.2] INVALID FOR* Internal hemorrhoids without mention of complic*INVALID FOR*11/21/2011 Ganglion of joint [M67.40] INVALID FOR*11/21/2011 IRRITABLE COLON [K58.9] INVALID FOR* PAP SMEAR OF CERVIX W ASCUS [R87.610] INVALID FOR* CERVICAL HPV DNA POSITIVE [R87.810] INVALID FOR* FEMALE STRESS INCONTINENCE [N39.3] INVALID FOR* Pain in limb [M79.609] INVALID FOR*11/21/2011 Calcaneal spur [M77.30] INVALID FOR*11/21/2011 Depressive disorder, not elsewhere classified [*INVALID FOR*11/21/2011 Microscopic hematuria [R31.29] INVALID FOR*11/21/2011 Pain in joint, pelvic region and thigh [M25.559]INVALID FOR*11/21/2011 Cholelithiasis NOS [K80.20] INVALID FOR*11/21/2011 Hypothyroid [E03.9] INVALID FOR* Ovarian cystic mass [N83.209] INVALID FOR*11/21/2011 Depression, major [F32.9] 11/21/2011 Panic attack [F41.0] INVALID FOR*11/21/2011 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] INVALID FOR* Backache, unspecified [M54.9] INVALID FOR*09/29/2014 Cervicalgia [M54.2] INVALID FOR*09/29/2014 Bipolar 2 disorder [F31.81] INVALID FOR* Dysuria [R30.0] INVALID FOR*09/29/2014 Hematuria [R31.9] INVALID FOR* Urinary tract infection [N39.0] INVALID FOR*09/29/2014 Urgency of urination [R39.15] INVALID FOR*09/29/2014 Frequency of urination [R35.0] INVALID FOR*09/29/2014 Low back pain [M54.5] INVALID FOR* Family history of ovarian cancer [Z80.41] INVALID FOR* LADONNA (stress urinary incontinence, female) [N39.*INVALID FOR* Cystocele [[id number]] INVALID FOR* Type 2 diabetes mellitus without complication (*INVALID FOR* Trigger middle finger of left hand [M65.332] INVALID FOR* CAD (coronary artery disease) [I25.10] INVALID FOR* More... Essential hypertension [I10] INVALID FOR* Morbid obesity with BMI of 40.0-44.9, adult (HC*INVALID FOR* GERD (gastroesophageal reflux disease) [K21.9] INVALID FOR* TONIO (obstructive sleep apnea) [G47.33] INVALID FOR* More... Iron deficiency concern [E61.1] INVALID FOR* Presence of drug coated stent in LAD coronary a*INVALID FOR* Family history of ischemic heart disease [Z82.4*INVALID FOR* Presence of drug coated stent in right coronary*INVALID FOR* Vitamin D insufficiency [E55.9] INVALID FOR* Sprain of lumbar region-BWC [S33.5XXA] INVALID FOR* Anterior cervical lymphadenopathy [R59.0] INVALID FOR* More... Axillary lymphadenopathy [R59.0] INVALID FOR*08/14/2016 More... Onychomycosis [B35.1] INVALID FOR* Mild intermittent asthma without complication [*INVALID FOR* Prolonged QT interval [R94.31] INVALID FOR* Chronic pain of left knee [M25.562, G89.29] INVALID FOR* Iron deficiency anemia [D50.9] INVALID FOR* Gastroesophageal reflux disease [K21.9] INVALID FOR* Prescriptions ordered this encounter Disp Refills Start End METFORMIN 1,000 MG TABLET 60 t* 11 09/25/2017 Sig: TAKE 1 TABLET TWICE DAILY WITH meals Medications Discontinued During This Encounter metFORMIN (GLUCOPHAGE) 1,000 mg tabl* 60 t* 11 10/31/2016 09/25/2017 Route: ORAL Sig: Take 1 tablet by mouth twice daily with meals. Disc: Reason for discontinue is not on file. Encounter Status:Closed by LESTER LOPEZ CNP on 09/25/17 MONET Observed: 09/24/2017 Status: COMPLETED Source: [place] 12:00 AM [facility] [place] REPOSITORY Telephone (AGFAMPLE) BURGESSMAHI Sheth ([id number]) 1975 F Date Time Provider Department 09/24/17 LESTER LOPEZ ([facility]) ALIZATIARAANN During your visit today, we recorded the following information about you: Gabo Mcginnis CMA 09/24/2017 10:09 AM Signed Received fax that Pantoprazole needs PA. Do you want to proceed or switch medication? Per her last OV with you she takes Protonix in the am and Pepcid qhs and was referred to the heartburn clinic. Please advise. JONY Cifuentes CNP 09/24/2017 1:02 PM Signed I'll do the PA. The other PPIs interact with her plavix. I would also recommend she get in to see the heartburn clinic if she hasn't already. HECTOR Mondragon CMA 09/24/2017 4:47 PM Signed Form filled out and faxed to insurance. JONY Cifuentes CMA 09/25/2017 10:49 AM Signed Medication approved 09/25/17-09/25/18. Note added to med list. Gabo Mcginnis CMA Allergies As of Date: 09/24/2017 Noted Allergy Reaction BENEDRYL (DIPHENHYDRAMINE) 07/01/2009 Comments: Makes her feel jittery DOXYCYCLINE 08/13/2006 11 - Vomiting IMITREX (SUMATRIPTAN SUCCINATE) 12/06/2009 Comments: chest pain PHENERGAN (PROMETHAZINE HCL) 06/14/2010 5 - Intolerance Comments: restless legs Date Reviewed: 06/18/2017 Reviewed by: Lester Perry) Jessica - Fully Assessed Reason for Visit: Medication Authorization [[id number]] Cmt: Pantoprazole Prescriptions as of 09/24/2017 Sig: ROPINIROLE 0.25 MG TABLET TAKE 1 TABLET BY MOUTH THREE * FAMOTIDINE 20 MG TABLET Take 1 tablet by mouth daily * LEVOTHYROXINE 150 MCG TABLET Take 1 tablet by mouth daily * JANUVIA 100 MG TABLET TAKE 1 TABLET EVERY DAY FLUTICASONE 50 MCG/ACTUATION * Use 1 Harcourt in each nostril o* AMOXICILLIN 500 MG-POTASSIUM * ASPIRIN 81 MG CHEWABLE TABLET Take 81 mg by mouth. GENTAMICIN 0.1 % TOPICAL CREAM SULFAMETHOXAZOLE 800 MG-TRIME* Take 1 tablet by mouth twice * CARVEDILOL 12.5 MG TABLET Take 1 tablet by mouth twice * PANTOPRAZOLE 40 MG TABLET,DEL* Take 1 tablet by mouth once d* FERROUS SULFATE 325 MG (65 MG* Take 1 tablet by mouth daily * METFORMIN 1,000 MG TABLET Take 1 tablet by mouth twice * ALBUTEROL SULFATE HFA 90 MCG/* Inhale 2 Puffs as instructed * ATORVASTATIN 20 MG TABLET Take 1 tablet by mouth once d* CLOPIDOGREL 75 MG TABLET Take 1 tablet by mouth once d* KETOCONAZOLE 2 % TOPICAL CREAM APPLY TO AREA BID CHOLECALCIFEROL (VITAMIN D3) * Take 1 capsule by mouth once * LEVONORGESTREL 20 MCG/24 HR (* 1 Each by INTRAUTERINE route * BLOOD SUGAR DIAGNOSTIC STRIPS Test blood sugar(s) one times* LANCETS Test blood sugar(s) one times* Problem List As Of Date 09/24/2017 Noted Resolved Chest pain, unspecified [R07.9] INVALID FOR*11/21/2011 Essential hypertension, benign [I10] INVALID FOR*11/21/2011 Shortness of breath [R06.02] INVALID FOR*11/21/2011 RESTLESS LEGS SYNDROME [G25.81] INVALID FOR* INSOMNIA NOS [G47.00] INVALID FOR* PLANTAR Fasciitis [M72.2] INVALID FOR*11/21/2011 Diarrhea [R19.7] INVALID FOR*09/29/2014 GASTROINTEST HEMORR NOS [K92.2] INVALID FOR* Internal hemorrhoids without mention of complic*INVALID FOR*11/21/2011 Ganglion of joint [M67.40] INVALID FOR*11/21/2011 IRRITABLE COLON [K58.9] INVALID FOR* PAP SMEAR OF CERVIX W ASCUS [R87.610] INVALID FOR* CERVICAL HPV DNA POSITIVE [R87.810] INVALID FOR* FEMALE STRESS INCONTINENCE [N39.3] INVALID FOR* Pain in limb [M79.609] INVALID FOR*11/21/2011 Calcaneal spur [M77.30] INVALID FOR*11/21/2011 Depressive disorder, not elsewhere classified [*INVALID FOR*11/21/2011 Microscopic hematuria [R31.29] INVALID FOR*11/21/2011 Pain in joint, pelvic region and thigh [M25.559]INVALID FOR*11/21/2011 Cholelithiasis NOS [K80.20] INVALID FOR*11/21/2011 Hypothyroid [E03.9] INVALID FOR* Ovarian cystic mass [N83.209] INVALID FOR*11/21/2011 Depression, major [F32.9] 11/21/2011 Panic attack [F41.0] INVALID FOR*11/21/2011 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] INVALID FOR* Backache, unspecified [M54.9] INVALID FOR*09/29/2014 Cervicalgia [M54.2] INVALID FOR*09/29/2014 Bipolar 2 disorder [F31.81] INVALID FOR* Dysuria [R30.0] INVALID FOR*09/29/2014 Hematuria [R31.9] INVALID FOR* Urinary tract infection [N39.0] INVALID FOR*09/29/2014 Urgency of urination [R39.15] INVALID FOR*09/29/2014 Frequency of urination [R35.0] INVALID FOR*09/29/2014 Low back pain [M54.5] INVALID FOR* Family history of ovarian cancer [Z80.41] INVALID FOR* LADONNA (stress urinary incontinence, female) [N39.*INVALID FOR* Cystocele [ICH5860] INVALID FOR* Type 2 diabetes mellitus without complication (*INVALID FOR* Trigger middle finger of left hand [M65.332] INVALID FOR* CAD (coronary artery disease) [I25.10] INVALID FOR* More... Essential hypertension [I10] INVALID FOR* Morbid obesity with BMI of 40.0-44.9, adult (HC*INVALID FOR* GERD (gastroesophageal reflux disease) [K21.9] INVALID FOR* TONIO (obstructive sleep apnea) [G47.33] INVALID FOR* More... Iron deficiency concern [E61.1] INVALID FOR* Presence of drug coated stent in LAD coronary a*INVALID FOR* Family history of ischemic heart disease [Z82.4*INVALID FOR* Presence of drug coated stent in right coronary*INVALID FOR* Vitamin D insufficiency [E55.9] INVALID FOR* Sprain of lumbar region-BWC [S33.5XXA] INVALID FOR* Anterior cervical lymphadenopathy [R59.0] INVALID FOR* More... Axillary lymphadenopathy [R59.0] INVALID FOR*08/14/2016 More... Onychomycosis [B35.1] INVALID FOR* Mild intermittent asthma without complication [*INVALID FOR* Prolonged QT interval [R94.31] INVALID FOR* Chronic pain of left knee [M25.562, G89.29] INVALID FOR* Iron deficiency anemia [D50.9] INVALID FOR* Gastroesophageal reflux disease [K21.9] INVALID FOR* Encounter Status:Closed by GABO MCELROY on 09/24/17 OBSOLETE Observed: 09/19/2017 Status: COMPLETED Source: [place] 12:00 AM [facility] REPOSITORY Refill (AGFAMPLE) MAHI TAN ([id number]) 1975 F Date Time Provider Department 09/19/17 LESTER LOPEZ ([facility]) AGKASSANDRA During your visit today, we recorded the following information about you: Chastity Fortune CMA 09/19/2017 1:52 PM Signed Pharmacy electronically requesting refills as follows: Last seen 06/17/17 . Last refill 06/18/17 . Pending Prescriptions Disp Refills ROPINIROLE 0.25 MG TABLET 90 tablet Sig: TAKE 1 TABLET BY MOUTH THREE TIMES DAILY ESPINOZA: Yes Please review and advise. Chastity Fortune CMA Allergies As of Date: 09/19/2017 Noted Allergy Reaction BENEDRYL (DIPHENHYDRAMINE) 07/01/2009 Comments: Makes her feel jittery DOXYCYCLINE 08/13/2006 11 - Vomiting IMITREX (SUMATRIPTAN SUCCINATE) 12/06/2009 Comments: chest pain PHENERGAN (PROMETHAZINE HCL) 06/14/2010 5 - Intolerance Comments: restless legs Date Reviewed: 06/18/2017 Reviewed by: Lester Rivers ([facility]) Jessica - Fully Assessed Reason for Visit: Refill Request [94] Order(s):rOPINIRole (REQUIP) 0.25 mg tabletTAKE 1 TABLET BY MOUTH THREE TIMES DAILYDisp: 90 tabletRfl: 1 Prescriptions as of 09/19/2017 Sig: ROPINIROLE 0.25 MG TABLET TAKE 1 TABLET BY MOUTH THREE * FAMOTIDINE 20 MG TABLET Take 1 tablet by mouth daily * LEVOTHYROXINE 150 MCG TABLET Take 1 tablet by mouth daily * JANUVIA 100 MG TABLET TAKE 1 TABLET EVERY DAY FLUTICASONE 50 MCG/ACTUATION * Use 1 Harcourt in each nostril o* AMOXICILLIN 500 MG-POTASSIUM * ASPIRIN 81 MG CHEWABLE TABLET Take 81 mg by mouth. GENTAMICIN 0.1 % TOPICAL CREAM SULFAMETHOXAZOLE 800 MG-TRIME* Take 1 tablet by mouth twice * CARVEDILOL 12.5 MG TABLET Take 1 tablet by mouth twice * PANTOPRAZOLE 40 MG TABLET,DEL* Take 1 tablet by mouth once d* FERROUS SULFATE 325 MG (65 MG* Take 1 tablet by mouth daily * METFORMIN 1,000 MG TABLET Take 1 tablet by mouth twice * ALBUTEROL SULFATE HFA 90 MCG/* Inhale 2 Puffs as instructed * ATORVASTATIN 20 MG TABLET Take 1 tablet by mouth once d* CLOPIDOGREL 75 MG TABLET Take 1 tablet by mouth once d* KETOCONAZOLE 2 % TOPICAL CREAM APPLY TO AREA BID CHOLECALCIFEROL (VITAMIN D3) * Take 1 capsule by mouth once * LEVONORGESTREL 20 MCG/24 HR (* 1 Each by INTRAUTERINE route * BLOOD SUGAR DIAGNOSTIC STRIPS Test blood sugar(s) one times* LANCETS Test blood sugar(s) one times* Problem List As Of Date 09/19/2017 Noted Resolved Chest pain, unspecified [R07.9] INVALID FOR*11/21/2011 Essential hypertension, benign [I10] INVALID FOR*11/21/2011 Shortness of breath [R06.02] INVALID FOR*11/21/2011 RESTLESS LEGS SYNDROME [G25.81] INVALID FOR* INSOMNIA NOS [G47.00] INVALID FOR* PLANTAR Fasciitis [M72.2] INVALID FOR*11/21/2011 Diarrhea [R19.7] INVALID FOR*09/29/2014 GASTROINTEST HEMORR NOS [K92.2] INVALID FOR* Internal hemorrhoids without mention of complic*INVALID FOR*11/21/2011 Ganglion of joint [M67.40] INVALID FOR*11/21/2011 IRRITABLE COLON [K58.9] INVALID FOR* PAP SMEAR OF CERVIX W ASCUS [R87.610] INVALID FOR* CERVICAL HPV DNA POSITIVE [R87.810] INVALID FOR* FEMALE STRESS INCONTINENCE [N39.3] INVALID FOR* Pain in limb [M79.609] INVALID FOR*11/21/2011 Calcaneal spur [M77.30] INVALID FOR*11/21/2011 Depressive disorder, not elsewhere classified [*INVALID FOR*11/21/2011 Microscopic hematuria [R31.29] INVALID FOR*11/21/2011 Pain in joint, pelvic region and thigh [M25.559]INVALID FOR*11/21/2011 Cholelithiasis NOS [K80.20] INVALID FOR*11/21/2011 Hypothyroid [E03.9] INVALID FOR* Ovarian cystic mass [N83.209] INVALID FOR*11/21/2011 Depression, major [F32.9] 11/21/2011 Panic attack [F41.0] INVALID FOR*11/21/2011 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] INVALID FOR* Backache, unspecified [M54.9] INVALID FOR*09/29/2014 Cervicalgia [M54.2] INVALID FOR*09/29/2014 Bipolar 2 disorder [F31.81] INVALID FOR* Dysuria [R30.0] INVALID FOR*09/29/2014 Hematuria [R31.9] INVALID FOR* Urinary tract infection [N39.0] INVALID FOR*09/29/2014 Urgency of urination [R39.15] INVALID FOR*09/29/2014 Frequency of urination [R35.0] INVALID FOR*09/29/2014 Low back pain [M54.5] INVALID FOR* Family history of ovarian cancer [Z80.41] INVALID FOR* LADONNA (stress urinary incontinence, female) [N39.*INVALID FOR* Cystocele [[id number]] INVALID FOR* Type 2 diabetes mellitus without complication (*INVALID FOR* Trigger middle finger of left hand [M65.332] INVALID FOR* CAD (coronary artery disease) [I25.10] INVALID FOR* More... Essential hypertension [I10] INVALID FOR* Morbid obesity with BMI of 40.0-44.9, adult (HC*INVALID FOR* GERD (gastroesophageal reflux disease) [K21.9] INVALID FOR* TONIO (obstructive sleep apnea) [G47.33] INVALID FOR* More... Iron deficiency concern [E61.1] INVALID FOR* Presence of drug coated stent in LAD coronary a*INVALID FOR* Family history of ischemic heart disease [Z82.4*INVALID FOR* Presence of drug coated stent in right coronary*INVALID FOR* Vitamin D insufficiency [E55.9] INVALID FOR* Sprain of lumbar region-BWC [S33.5XXA] INVALID FOR* Anterior cervical lymphadenopathy [R59.0] INVALID FOR* More... Axillary lymphadenopathy [R59.0] INVALID FOR*08/14/2016 More... Onychomycosis [B35.1] INVALID FOR* Mild intermittent asthma without complication [*INVALID FOR* Prolonged QT interval [R94.31] INVALID FOR* Chronic pain of left knee [M25.562, G89.29] INVALID FOR* Iron deficiency anemia [D50.9] INVALID FOR* Gastroesophageal reflux disease [K21.9] INVALID FOR* Prescriptions ordered this encounter Disp Refills Start End ROPINIROLE 0.25 MG TABLET 90 t* 1 09/20/2017 Cmt: this is a [facility] patient. the current rx doesn,t have enough left for a full month. Please send a new rx and we will d/c the current one. thank you! Sig: TAKE 1 TABLET BY MOUTH THREE TIMES DAILY Medications Discontinued During This Encounter rOPINIRole (REQUIP) 0.25 mg tablet 90 t* 3 06/18/2017 09/20/2017 Route: ORAL Sig: Take 1 tablet by mouth three times daily. Disc: Reason for discontinue is not on file. Encounter Status:Closed by LESTER LOPEZ CNP on 09/20/17 DISCHARGE INSTRUCTION Observed: 09/10/2017 Status: F Source: BECKY 4:11 PM [facility] REPOSITORY [facility] Medical Records Department [address] [place] [address] [place] [address] Discharge Instruction 09/10/17 1609 MR#: [id number] Acct: [id number] Name: MAHI TAN Rep #: [id number] : 1975 42 From: Emanuel De Dios MD PCP: Sandee Physician, No Primary Status: REG ER ED Disposition - Plan for ED Patient: Chief Complaint: Upper Extremity Injury Instructions: ED Fingernail Infec Prescriptions: Cephalexin [Keflex] 500 mg PO Q6 #40 cap Smz/Tmp Ds [Bactrim Ds] 1 tab PO BID #20 tab Referrals: Care Physician,No Primary [Primary Care Provider] - Gil Delgadillo, [STAFF PHYSICIAN] - What to do if you have Problems For any increased pain, shortness of breath, bleeding, nausea or vomiting, chest pain, or any unexpected problems, contact your Primary Care Provider. Call [facility] ([phone]) or report to the closest Emergency Room. Call 911 if necessary. 09/10/17 1611 <Electronically signed by Emanuel De Dios MD> Date Emanuel De Dios MD Cosigner Signature (If Indicated): Date CC: No Primary Care Physician EMERGENCY DEPARTMENT Observed: 09/10/2017 Status: F Source: HALSEY SUMMARY 4:09 PM [facility] REPOSITORY [facility] Medical Records Department [address] [place] [address] Emergency Department Summary 09/10/17 1605 MR#: [id number] Acct: [id number] Name: CORINE TANA Domenic Rep #: [id number] : 1975 42 From: Emanuel De Dios MD PCP: Sandee Garces, No Primary Status: REG ER - ER Visit Summary Date of Service: 09/10/17 Chief Complaint: Pain and swelling of the right small finger. History of Present Illness: The patient is a 42 F who noted some redness pain and swelling of the end of her right fifth finger about 2 weeks ago. She was using soaks and antibacterial soap and it improved until yesterday when it returned and worsened over the past day. She does have a history of prior similar symptoms. Physical Examination: Afebrile vitals are stable Heart regular rate and rhythm Lungs are clear Abdomen soft Patient has a paronychia of the right fifth finger with fluctuance at the eponychium. Patient does have erythema of the distal finger and some tenderness along the pad but I did not appreciate swelling induration or fluctuance of the finger pad Test Results: Your x-ray shows soft tissue swelling otherwise unremarkable. I did do a bedside ultrasound of the pad of the finger I do not appreciate any focal fluid collection. Emergency Department Course and Treatment: Patient's presentation is consistent with a paronychia although she does have some redness of the distal finger circumferentially she does not appear to have any definitive felon. Digital block performed with 1% lidocaine with good anesthesia and incision made through the paronychia with purulent drainage. Dressing was applied. Patient was placed on Keflex and Bactrim. She will follow-up as an outpatient. She was instructed on signs and symptoms to monitor for and conditions under which return to the emergency department. Treatment Plan: [] Disposition: Discharge Impression: Paronychia right fifth finger This note was generated with [employer] dictation software. It may contain incorrect words, spelling, and punctuation that were not noted in review of the chart prior to signing ED Disposition - Plan for ED Patient: Chief Complaint: Upper Extremity Injury Referrals: Care Physician,No Primary [Primary Care Provider] - What to do if you have Problems For any increased pain, shortness of breath, bleeding, nausea or vomiting, chest pain, or any unexpected problems, contact your Primary Care Provider. Call [facility] ([phone]) or report to the closest Emergency Room. Call 911 if necessary. 09/10/17 160 <Electronically signed by Emanuel De Dios MD> Date Emanuel De Dios MD Cosigner Signature (If Indicated): Date CC: No Primary Care Physician FINGER(S) MIN 2 VIEWS Observed: 09/10/2017 Status: F Source: BECKY 2:39 PM [facility] REPOSITORY [facility] Imaging Services [address] [address] Finger(s) Min 2 Views MR#: [id number] Acct: [id number] Name: MAHI TAN Rep #: [id number] : 1975 F 42 From: Kevin Tellez MD PCP: Care Physician, No Primary Status: REG ER Study: Finger(s) Min 2 Views Date of Exam: 09/10/17 Exam# [id number] Ordering Dr: Emanuel De Dios MD STUDY: X-RAY - RIGHT HAND, ATTENTION FIFTH FINGER REASON FOR EXAM: Female, 42 years old. Soft tissue infection. TECHNIQUE: 3 view(s) of the finger were obtained. COMPARISON: None. FINDINGS: Normal metacarpal head. Normal metacarpophalangeal joint. Normal proximal phalanx. Normal middle phalanx. Normal distal phalanx. Normal proximal interphalangeal joint. Normal distal interphalangeal joint. Soft tissue swelling. RAD/Finger(s) Min 2 Views IMPRESSION: Soft tissue swelling. Electronically Signed: Kevin Tellez MD at 15:44 EST Tel [phone], Service support , CC: No Primary Care Physician; Emanuel De Dios MD Gas Plant Technician: Signed ALLERGIES ALLERGIES DATE TYPE / NAME / CODE REACTION SEVERITY SOURCE CODE 08/21/2018 Drug promethazine Nausea Unknown Becky Allergy/41 HCl/F429496822(RXNORM [facility] 0740713[facility]) Repository 08/21/2018 Drug diphenhydramine Other Unknown Becky Allergy/41 HCl/F919421692(RXNORM Community 6050272( ) [facility] OME CT) Repository 08/21/2018 Drug sumatriptan Other Unknown Becky Allergy/41 succinate/L978935057( Community 3839028( RXNORM) [facility] CT) Repository 08/21/2018 Drug doxycycline/F15248842 Nausea/Vom/Diarr Unknown Boyd Allergy/41 8(RXNORM) hea Community 7882978([facility] OME CT) Repository 08/21/2018 Drug sumatriptan/M49163979 Other Unknown Becky Allergy/41 4(RXNORM) Community 0095070([facility] CT) Repository 08/21/2018 Drug tramadol/B935346042(R Other Unknown Boyd Allergy/41 XNORM) Community 2857480([facility]) Repository 07/05/2017 DRUG TRAMADOL INTOLERANCE [address] Other 1531318([facility]ME CT) Repository 06/14/2010 DRUG PROMETHAZINE HCL INTOLERANCE [address] Other 1558526([facility] OME CT) Repository 12/06/2009 DRUG SUMATRIPTAN SUCCINATE [address] Other 9284284([facility] OME CT) Repository 07/01/2009 DRUG DIPHENHYDRAMINE OTHER: SEE C [facility] Other 5971043([facility]MED CT) Repository 08/13/2006 DRUG DOXYCYCLINE Vomiting [address] Other 4271789([facility] OME CT) Repository NG/7035715 DIPHENHYDRAMINE [facility]) Repository NG/0541434 DOXYCYCLINE [facility] 06([facility] [employer] [facility] CT) Repository NG/0961457 SUMATRIPTAN SUCCINATE [facility] 06([facility] [employer] [facility] CT) Repository NG/6562535 PROMETHAZINE HCL [facility] 06([facility] [employer] [facility] CT) Repository NG/5515549 TRAMADOL [facility] 06([employer] System CT) Repository ENCOUNTERS ENCOUNTERS ADMIT/DISCHARGE ACCOUNT NUMBER ADMITTING ENCOUNTER LOCATION SOURCE CLASS 09/05/2018 [id number] Ambulatory Becky Becky [facility] ding:[place] Repository 09/04/2018 [id number] [facility] CENTERBuildi ng:AGGENS2 09/03/2018 [id number] Ambulatory [facility] Other [place] Repository 09/03/2018/09/03/20 [id number] Ambulatory KRISTIN [address] MEDICAL Repository CENTERBuildi ng:AKLBS 09/03/2018/09/04/20 [id number] Ambulatory [address] Main [place] Repository 08/25/2018/08/25/20 [id number] Ambulatory [address] Other [place] Repository 08/21/2018/08/21/20 [id number] Emergency Becky [address] ding:ED Repository 08/20/2018/08/20/20 [id number] Ambulatory [address] Other [place] Repository 08/20/2018/08/20/20 [id number] Ambulatory NMAMY [address] MEDICAL Repository CENTERBuildi ng:BAR 08/18/2018 [id number] Ambulatory [facility] Other [place] Repository 08/18/2018/08/18/20 [id number] Ambulatory KRISTIN [facility] [address] MEDICAL Repository CENTERBuildi ng:AKLBB 08/18/2018/08/18/20 [id number] Ambulatory [address] Other [place] Repository 08/18/2018/08/18/20 [id number] Ambulatory KRISTIN [facility] [address] MEDICAL Repository CENTERBuildi ng:AGGASTW 08/18/2018/08/18/20 [id number] Ambulatory [address] Other [place] Repository 08/05/2018 [id number] Ambulatory [facility] Other [place] Repository 08/05/2018/08/05/20 [id number] Ambulatory [address] Other [place] Repository 08/03/2018/08/03/20 [id number] Emergency [facility] Other [place] Repository 07/28/2018 [id number] Ambulatory [facility] Other [place] Repository 07/28/2018/07/28/20 [id number] Ambulatory [address] Other [place] Repository 07/23/2018/07/23/20 [id number] Ambulatory [address] Other [place] Repository 07/23/2018/07/23/20 [id number] Ambulatory KRISTIN Parra [address] MEDICAL Repository CENTERBuildi ng:AKXRB 07/23/2018 [id number] Ambulatory [facility] Other [place] Repository 07/23/2018/07/23/20 [id number] Ambulatory [address] MEDICAL Repository CENTERBuildi ng:AKLBB 07/23/2018/07/23/20 [id number] Ambulatory [address] Repository 07/23/2018/07/23/20 [id number] Ambulatory [address] MEDICAL Repository CENTERBuildi ng:[facility] 07/22/2018 [id number] Ambulatory [facility] ding:[place] Repository 07/11/2018 [id number] Ambulatory BuildinC [facility] [place] Repository 07/08/2018 [id number] Ambulatory [facility] MEDICAL Repository CENTERBuildi ng:AGRHEUHWN 03/30/2018/03/30/20 [id number] Emergency [address] ding:ED Repository 03/01/2018/03/01/20 [id number] Emergency [address] ding:ED Repository 02/28/2018/02/29/20 [id number] Ambulatory BMSBuilding: [address] Repository 09/25/2017/09/25/19 [id number] Ambulatory Building:[address] Repository 09/25/2017 [id number] Jean Paul CRANE, Ambulatory [facility] Repository 09/10/2017/09/10/20 [id number] Emergency Becky[address] ding:ED Repository PAYERS PAYERS ENCOUNTER GUARANTOR PAYER SUBSCRIBER SOURCE 09/05/2018 MAHI Sheth Primary MAHI [id number] Insurance:SANDEERAHEEM MULLINS: [facility] STIBBS JUST FOR [facility] [id number]: Repository [id number]: [phone] [id number] [phone] () Date:3416-74-74RO [address] [place] [address]SN: 09/05/2018 Secondary NOT GIVENUNK Becky Insurance:SELF PAY [facility] Number: Effective Repository Date:2018-08-07 09/04/2018 MAHI Sheth Primary MAHI Macias BURGESSDOB: Insurance:CARESOURCE BURGESSDOB: Health System HIXPolicy Number: [id number] Repository [place] [id number] [place] Date: [address]Kgp: (HP) 09/03/2018 MAHI Sheth Primary MAHI Macias BURGESSDOB: Insurance:CARESOURCE BURGESSDOB: Health System HIXPolicy Number: [id number] Repository [place] [id number] [place] Date: [address]Cbu: (HP) 08/21/2018 MAHI Sheth Primary MAHI Waltonoster [id number] Insurance:CARESOURCE BURGESSDOB: Community STIBBS [facility] [id number] Number: Repository [id number]: [phone] [id number] [phone] (HP) Date:7881-21-88AG[address] [address]UW: 08/21/2018 Secondary NOT GIVENUNK Boyd Insurance:SELF PAY [facility] Number: Effective Repository Date:2018-08-21 08/20/2018 MAHI Sheth Primary MAHI Macias BURGESSDOB: Insurance:CARESOURCE BURGESSDOB: Health System HIXPolicy Number: [id number] Repository [place] [id number] [place] Date: [address]Ole: (HP) 08/18/2018 MAHI Macias BURGESSDOB: Insurance:CARESOURCE BURGESSDOB: Health System HIXPolicy Number: [id number] Repository [place] [id number] [place] Date: [address]Mag: (HP) 08/18/2018 MAHI Sheth Primary MAHI Macias BURGESSDOB: Insurance:CARESOURCE BURGESSDOB: Health System HIXPolicy Number: [id number] Repository [place] [id number] [place] Date: [address]Qeb: (HP) 07/23/2018 MAHI Sheth Primary MAHI Macias BURGESSDOB: Insurance:CARESOURCE BURGESSDOB: Health System HIXPolicy Number: [id number] Repository [place]BS [id number] [place] Date: [address]Yog: (HP) 07/23/2018 MAHI Sheth Primary MAHI Parra [facility] BURGESSDOB: Insurance:CARESOURCE BURGESSDOB: Health System HIXPolicy Number: [id number] Repository [place]IB[place] [id number] [place] Date: [address]Jux: (HP) 07/23/2018 MAHI Sheth Primary MAHI Parra [facility]: Insurance:CARESOURCE BURGESSDOB: Health System HIXPolicy Number: [id number] Repository [place] [id number] [place] Date: [address]Wkt: (HP) 07/22/2018 MAHI Sheth Primary MAHI Pena [id number] Insurance:CARESOURCE BURGESSDOB: [facility] STIBBS [facility] FOR [facility] [id number] Number: Repository [id number]: [phone] [id number] [phone] (HP) Date:3264-28-39YB[address] [address]QI: 07/22/2018 Secondary NOT GIVENUNK Boyd Insurance:SELF PAY [facility] Number: Effective Repository Date:2018-06-12 07/08/2018 MAHI Sheth Primary MAHI Sheth [facility] BURGESSDOB: Insurance:CARESOURCE BURMARTHASDOB: Health System [facility] Number: [id number] Repository [place]IB[place] [id number] [place] Date: [address]Jvr: (HP) 03/30/2018 MAHI Sheth Primary MAHI Sheth Becky [id number] Insurance:CARESOURCE BURMARTHASDOB: Community STIBBS JUST FOR [facility] [id number], [place] Number: Repository [id number]: 330 [id number] [phone] (HP) Date:1125-14-86KL [address] [address]US: 03/30/2018 Secondary NOT GIVENUNK Becky Insurance:SELF PAY [facility] Number: Effective Repository Date:2018-03-30 03/01/2018 MAHI Sheth Primary MAHI Pena [id number] Insurance:CARESOURCE DIANESDOB: Community STIBBS JUST FOR [facility] 1805-03-48YWSPrinc[place], [place] Number: Repository [id number]: 330 [id number] [phone] (HP) Date:9154-05-35VQ [address] [address]TX: 03/01/2018 Secondary NOT GIVENUNK Becky Insurance:SELF PAY [facility] Number: Effective Repository Date:2018-03-01 02/28/2018 MAHI Sheth Primary NOT GIVENUNK Boyd [id number] Insurance:SELF [place] Number: [place] Repository [id number]: [phone]) Date:2018-03-17 [phone] (HP) 09/25/2017 Primary NOT [id number] [facility] Number: [facility] [id number] [address]Lvo: (722) Repository Date:Plan [phone] () Name:[place] [address] [place], [place] [address]NG: 09/10/2017 Mahi Sheth Primary Mahi [id number] Insurance:SANDEERAHEEM KeatingOB: Community [place] JUST FOR [facility] [id number] [place] Number: Repository [id number]: [phone] [id number] [phone] () Date:0381-09-56NO [address] [place] [address]ZO: 09/10/2017 Secondary NOT GIVENUNK Becky Insurance:SELF PAY [facility] Number: Effective Repository Date:2017-09-10
== END 2018-08-21 07:54 | disposition home or self-care (01) ==
LOC: ED 07:47
PROVIDERS: Emergency Provider Emergency Medicine; Family Provider Nurse Practitioner Family; PCP Nurse Practitioner Family
DX: H01.004 Unspecified blepharitis left upper eyelid (principal); E11.9 Type 2 diabetes mellitus without complications
CPT/HCPCS: 99283

== ENCOUNTER → 2018-09-05 20:23 | Outpatient (CLI) | payer OTHER, SELFPAY | LOC: SL 20:23 | PROVIDERS: Family Provider Nurse Practitioner Family; PCP Nurse Practitioner Family; Visit Provider Nurse Practitioner Family | DX: G47.33 Obstructive sleep apnea (adult) (pediatric) (principal) | CPT/HCPCS: 95811 ==

== ENCOUNTER 2019-04-29 17:59 | Emergency (ER) | payer OTHER, SELFPAY ==
[2019-04-29 17:59] VITALS: BP 141/78; PULSE 81; RESP 16; TEMP 36.4; O2SAT 99; BMI 36.6
--- NOTE | 2019-04-29 18:30 | CT_ITS ---
We are attempting to reach an attending provider to discuss findings. An addendum with communication details will be sent when the communication is complete. STUDY: CT ABDOMEN AND PELVIS WITH CONTRAST REASON FOR EXAM: Female, 43 years old. Right lower quadrant pain RADIATION DOSAGE (If Supplied By Facility): DLP = ( 1242.53 ) mGycm TECHNIQUE: Transaxial images were obtained from the dome of the diaphragm to the symphysis pubis without oral contrast. 100ML ml of Isovue 300 contrast was administered. Sagittal and coronal images were reconstructed. Individualized dose optimization techniques were used for this CT. COMPARISON: CT abdomen and pelvis March 01, 2018 FINDINGS: Right base atelectasis is present. The visualized portions of the heart and pericardium are within normal limits. The gallbladder is contracted or absent. The liver is within normal limits. There are no suspicious hepatic lesions. The spleen is normal in size. The pancreas is within normal limits. The adrenal glands are within normal limits. There are no obstructing renal stones. There is no hydronephrosis. There are no focal renal lesions. Normal visualized stomach. There is no bowel obstruction or inflammation. There is prominent stool throughout the colon. The appendix is normal. Post hysterectomy changes are present. There is a right adnexal 4.2 x 2.8 cm cyst. There is a left adnexal para midline 4.2 x 1.4 cm tubular structure and a right adnexal para midline 2.8 x 0.9 cm tubular structure. The aorta is normal in caliber. There is no abdominal or pelvic free air, fluid collection or lymphadenopathy. There is trace pelvic free fluid. There are no destructive osseous lesions. CT/Abdomen/Pelvis W IV Cont ONLY IMPRESSION: Bilateral adnexal tubular structures as described above, nonspecific, although possibly representing dilated fallopian tubes. Right adnexal 4.2 x 2.8 cm cyst. Status post hysterectomy. Trace pelvic free fluid. Pelvic ultrasound and gynecological evaluation is suggested for further evaluation. Normal appendix. Electronically Signed: Fernie Adames, at 19:38 EDT Tel , Service support ,
--- NOTE | 2019-04-29 18:30 | ED.VIS.GI ---
History of Present Illness Chief Complaint: Abd Pain Informant: Patient - Abdominal Pain/Flank Pain Onset: Weeks - 1 Timing: Intermittent - worse today Quality: Aching Location: RLQ - without migration or radiation Current Severity: Severe Maximum Severity: Severe Worsened by: Car ride - Nausea/Vomiting/Emesis GI Symptom: Nausea. Negative for: Vomiting Onset: Today - Diarrhea/Melena/Hematochezia GI Symptom: Negative for: Diarrhea, Melena, Hematochezia Associated Symptoms: Negative for: Dysuria, Frequency, Hematuria Narrative: Pain is been off and on for the last week, but much worse today along with nausea. No fevers. No pain into her back. No changes in urinary issues that she has had since her hysterectomy. Prior similar symptoms: No - Past Medical History (1) Asthma Status: Chronic (2) Bipolar disorder Status: Chronic (3) CAD (coronary artery disease) Status: Chronic (4) Diabetes mellitus, type II Status: Chronic (5) Hypothyroidism (acquired) Status: Chronic Comment: acquired - due to complete thyroidectomy (6) TONIO (obstructive sleep apnea) Status: Chronic Past Medical History - Allergies and Home Meds Allergies/Adverse Reactions: Allergies diphenhydramine HCl [From Benadryl] Adverse Reaction (Verified 08/21/18 07:08) Other doxycycline Adverse Reaction (Verified 08/21/18 07:08) Nausea/Vom/Diarrhea promethazine HCl [From Phenergan] Adverse Reaction (Verified 08/21/18 07:08) Nausea sumatriptan [From Imitrex] Adverse Reaction (Verified 08/21/18 07:08) Other sumatriptan succinate [From Imitrex] Adverse Reaction (Verified 08/21/18 07:08) Other tramadol [From Ultram] Adverse Reaction (Verified 08/21/18 07:08) Other Primary Care Physician: Татьяна Sprague NP-C [Primary Care Provider] - Surgical History: cholecystectomy, hysterectomy, - - Bladder suspension, ganglion cyst removal from the left wrist, thyroidectomy. Lives: Spouse/ Significant Other Smoking Status: Never smoker - Family History Maternal Family History: Reports: Cancer Paternal Family History: Reports: Heart Disease Review of Systems General: Reports: Malaise. Denies: Chills, Fever, Sweats Eyes: Denies: Visual changes - bilaterally, Diplopia ENT: Denies: Rhinorrhea, Sore throat Cardiovascular: Denies: Chest pain, Palpitations Respiratory: Denies: Dyspnea, Cough, Dyspnea on exertion Gastrointestinal: Reports: Abdominal pain, Nausea. Denies: Vomiting, Diarrhea, Melena, Hematochezia Genitourinary: Denies: Dysuria, Hematuria, Frequency Musculoskeletal: Denies: Neck pain, Back pain, Extremity Pain Skin: Denies: Rash, Wounds Neurological: Denies: Headache, Weakness, Numbness Physical Exam Vital Signs/Narrative: Vital Signs Temp Pulse Resp BP Pulse Ox 04/29/19 17:59 97.6 F L 81 16 141/78 H 99 Inital Vital Signs reviewed: Yes General: Well nourished, Well developed, No Acute Distress Head: Normocephalic, Atraumatic Eyes: Perrl, EOMI ENT: Moist mucous membranes, No rhinorrhea Neck: Supple, Nontender Cardiovascular: Regular rate, Regular rhythm, No murmurs Respiratory: No distress, CTA bilaterally, Chest nontender Abdomen: Soft, Nondistended, Normal bowel sounds, No masses, Tender - Right lower quadrant only, Guarding - Voluntary, right lower quadrant at McBurney's point, Psoas sign, Rovsig's sign. Negative for: Rebound tenderness, Ventral hernia, Inguinal hernia, Obturator sign, Harris's sign Back: Nontender, Normal Inspection. Negative for: CVA tenderness Extremities: Nontender, No edema Skin: Normal color, No rash Neurological: Alert, Oriented x3, Cranial nerves II-XII grossly intact, Normal Strength, Normal Sensation Psychological: Normal affect, Normal Mood Diagnostic/Tx/Re-eval Impressions Abdomen/Pelvis CT 04/29/19 18:30 IMPRESSION: Bilateral adnexal tubular structures as described above, nonspecific, although possibly representing dilated fallopian tubes. Right adnexal 4.2 x 2.8 cm cyst. Status post hysterectomy. Trace pelvic free fluid. Pelvic ultrasound and gynecological evaluation is suggested for further evaluation. Normal appendix. Electronically Signed: Fernie Adames, at 19:38 EDT Tel , Service support , ADDENDUM: 04/29/191951 IMPRESSION: Bilateral adnexal tubular structures as described above, nonspecific, although possibly representing dilated fallopian tubes. Right adnexal 4.2 x 2.8 cm cyst. Status post hysterectomy. Trace pelvic free fluid. Pelvic ultrasound and gynecological evaluation is suggested for further evaluation. Normal appendix. N.B. : The above information has been verbally conveyed by Fernie Adames to Dr. Sly Dutta MD, on 04/29/2019 19:45:40 (ET). Electronically Signed: Fernie Adames, at 19:38 EDT Tel , Service support , Transvaginal US 04/29/19 19:41 IMPRESSION: Left adnexal dilated tubular structure, corresponding to that described on comparison CT evaluation, which may likely represents a dilated fallopian tube. Note similar finding on the right seen on comparison CT, although not identified on ultrasound. Clinical correlation is suggested. No evidence of ovarian torsion. Status post hysterectomy. Electronically Signed: Fernie Adames, at 20:43 EDT Tel , Service support , 04/29/19 18:30 Abdomen/Pelvis W IV Cont ONLY [CT] Stat 04/29/19 19:41 US Trans [Transvaginal Non-] [US] Stat Laboratory Results 04/29/19 04/29/19 04/29/19 18:26 18:26 19:35 WBC 7.3 RBC 4.41 Hgb 12.9 Hct 37.6 MCV 85.3 MCH 29.3 MCHC 34.3 RDW Std Deviation 39.5 RDW Coeff of Noman 12.8 Plt Count 236 MPV 9.6 Immature Gran % (Auto) 0.300 Neut % (Auto) 63.3 Lymph % (Auto) 25.9 [place] % (Auto) 5.6 Eos % (Auto) 4.1 Baso % (Auto) 0.8 Absolute Neuts (auto) 4.6 Absolute Lymphs (auto) 1.89 Nucleated RBC % 0 Sodium 139 Potassium 3.8 Chloride 105 Carbon Dioxide 27.0 Anion Gap 7 BUN 10 Creatinine 0.80 Estim Creat Clear Calc 83.27 Est GFR (MDRD) Af Amer 101 Est GFR (MDRD) Non-Af 84 BUN/Creatinine Ratio 12.5 Glucose 181 H Calcium 9.0 Urine Color Yellow Urine Clarity Clear Urine pH 7.0 Ur Specific [place] 1.010 Urine Protein Negative Urine Glucose (UA) Normal Urine Ketones Negative Urine Occult Blood Negative Urine Nitrite Negative Urine Bilirubin Negative Urine Urobilinogen Normal Ur Leukocyte Esterase Negative Urine RBC 0 SEEN Urine WBC 0 SEEN Ur Squamous Epith Cells 0-5 SEEN Urine Bacteria 0 SEEN Urine Mucus 0 SEEN - Medical Decision Making Labs are unremarkable, urinalysis is negative. CT was obtained due to the location of her pain and concern for an atypical appendicitis. It shows normal appendix, a right ovarian cyst, and fluid-filled fallopian tubes. She had a hysterectomy. Ultrasound was recommended, which I think is reasonable given these findings and concern for possible intermittent torsion. The ultrasound shows normal blood flow to both ovaries, right ovarian cyst, a fluid-filled left fallopian tube, and the right fallopian tube was not seen although it was on CT. These are on the unknown significance but I do not think these represent abscesses especially in the context of no leukocytosis with symptoms for 1 week. She had no improvement with morphine but after Toradol her pain is resolved. I think she can follow-up with [facility] as an outpatient, she has [address] out of [address], so she was given her studies on a disc to take with her. She was also given a prescription for some [place], advised that she can take ibuprofen in addition as needed and she is comfortable with that plan. ED Disposition - Plan for ED Patient: Disposition: Home or Assisted Living Diagnosis: RLQ abdominal pain, Right ovarian cyst Instructions: ABDOMINAL PAIN, Unknown Cause, (Female) Prescriptions: Hydrocodone Bitart/Apap 5-325 [[place] 5MG-325MG] 1 tab PO Q6H PRN PRN 3 Days #10 tab PRN Reason: Pain Prescription Printed Referrals: Татьяна Sprague, MANJINDER-C [Primary Care Provider] - [facility], your [Other] (3-4 days if pain persists)
[2019-04-29 18:35] LABS: Absolute Lymphocyte Count 1.89 X10^3/uL (0.83-4.51); Absolute Neutrophil Count 4.6 X10^3/uL (2.0-7.7); Basophil# 0.06 X10^3/uL; Basophil% 0.8 % (0-1); Eosinophils% 4.1 % (0-5); Hematocrit 37.6 % (37-47); Hemoglobin 12.9 g/dL (12.0-15.0); Lymphocyte # 1.89 X10^3/ul (4.0); Lymphocyte % 25.9 % (19-41); Mean Corp Hgb Conc 34.3 g/dL (32-36); Mean Corpuscular Hgb 29.3 pg (27.0-32.0); Mean Corpuscular Volume 85.3 fL (81-99); Mean Platelet Vol. 9.6 fl (6.2-12.0); Monocyte# 0.41 X10^3/uL; Monocyte% 5.6 % (0-10); NRBC Flagged by Analyzer 0 % (0-5); Neutrophil # 4.61 X10^3/uL (2.7-7.7); Neutrophil % 63.3 % (47-70); Platelet Count 236 K/mm3 (150-450); RBC Distribution Width CV 12.8 % (11.6-14.6); RBC Distribution Width SD 39.5 fl (35.1-43.9); Red Blood Count 4.41 M/mm3 (4.2-5.4); White Blood Count 7.3 K/mm3 (4.4-11.0)
[2019-04-29] MEDS: Ondansetron 4 MG/2 ML Vial IV (18:36)
[2019-04-29] MEDS: Morphine 4 MG/ML Syringe IV (18:36)
[2019-04-29] MEDS: 0.9% Normal Saline 1,000 ML 1000 ML IV (18:36)
[2019-04-29 18:46] LABS: Anion Gap 7 (5-15); BUN 10 mg/dL (7-18); BUN/Creat Ratio 12.5 RATIO (10-20); Chloride 105 mmol/L (98-107); EST Glomerular Filtration Rate 84 mL/min (>60); Est Glom Filt Rate - Afr Amer 101 mL/min (>60); Estimated Creatinine Clearance 83.27 ml/min; Glucose 181 mg/dL (74-106); Potassium 3.8 mmol/L (3.5-5.1); Sodium Level 139 mmol/L (136-145)
[2019-04-29 19:41] LABS: Bacteria 0 SEEN /hpf (None Seen); Mucous, Urine 0 SEEN /hpf (<or=2+); Red Blood Cells-Urine 0 SEEN /hpf (0-5); White Blood Cells 0 SEEN /hpf (0-5)
--- NOTE | 2019-04-29 19:41 | US_ITS ---
STUDY: ULTRASOUND OF THE FEMALE PELVIS - COMPLETE REASON FOR EXAM: Female, 43 years old. Right lower quadrant pain TECHNIQUE: Transabdominal and transvaginal ultrasound images were obtained of the pelvis TECHNICAL QUALITY: Adequate. COMPARISON: CT abdomen pelvis performed earlier the same day FINDINGS: The uterus has been removed. The right ovary measures 5.9 x 3.9 x 3.4 cm. Right ovarian cysts are present, the largest measuring 3.3 x 2.7 x 2.5 cm. Right adnexal tubular structure described on comparison CT not identified. There is normal arterial and normal venous vascularity. The left ovary measures 3.6 x 2.5 x 2.3 cm. Left ovarian cysts are present, the largest measuring 1.3 x 1.6 x 1.2 cm. There is a left adnexal dilated tubular structure, corresponding to that described on comparison CT evaluation. There is normal arterial and normal venous vascularity. There is no fluid in the cul-de-sac. US/Transvaginal Non- IMPRESSION: Left adnexal dilated tubular structure, corresponding to that described on comparison CT evaluation, which may likely represents a dilated fallopian tube. Note similar finding on the right seen on comparison CT, although not identified on ultrasound. Clinical correlation is suggested. No evidence of ovarian torsion. Status post hysterectomy. Electronically Signed: Fernie Adames, at 20:43 EDT Tel , Service support ,
[2019-04-29 19:45] LABS: Color, Urine Yellow (Yellow); Glucose, Dipstick Normal (Normal); Ketone-Dipstick Negative (Negative); Leukocyte Esterase-Dipstick Negative /ul (Negative); Nitrite-Dipstick Negative (Negative); Occult Blood-Urine Negative /ul (Negative); Protein-Dipstick Negative (Negative); Urine Bilirubin Dipstick Negative (Negative); Urine Clarity Clear (Clear); Urine Urobilinogen Normal (Normal)
[2019-04-29] MEDS: Ketorolac 30 MG/ML Syringe IV (19:52)
[2019-04-29 19:59] LABS: Squamous Epithelial Cells - UA 0-5 SEEN /hpf (5-10)
[2019-04-29 21:37] VITALS: BP 127/72; PULSE 79; RESP 16; O2SAT 99
== END 2019-04-29 21:52 | disposition home or self-care (01) ==
PROVIDERS: Emergency Provider Emergency Medicine; Family Provider Nurse Practitioner Family; PCP Nurse Practitioner Family
DX: N83.201 Unspecified ovarian cyst, right side (principal); R10.31 Right lower quadrant pain; Z90.710 Acquired absence of both cervix and uterus; Z90.49 Acquired absence of other specified parts of digestive tract; G47.33 Obstructive sleep apnea (adult) (pediatric); E03.9 Hypothyroidism, unspecified; E11.9 Type 2 diabetes mellitus without complications; I25.10 Atherosclerotic heart disease of native coronary artery without angina pectoris; F31.9 Bipolar disorder, unspecified; J45.909 Unspecified asthma, uncomplicated
CPT/HCPCS: 74177; 76830; 80048; 81001; 85025; 93976; 96361; 96374; 96375; 99284; J7030; Q9967; A4216; J2405

== ENCOUNTER 2019-10-31 17:21 | Observation (INO) | payer OTHER, SELFPAY ==
[2019-10-31 17:21] VITALS: BP 154/92; PULSE 92; RESP 18; TEMP 36.1; O2SAT 99; BMI 38.2
--- NOTE | 2019-10-31 18:11 | EKG12_ITS ---
Test Reason : CHEST OTHER Blood Pressure : / mmHG Vent. Rate : 093 BPM Atrial Rate : 093 BPM P-R Int : 164 ms QRS Dur : 084 ms QT Int : 374 ms P-R-T Axes : 031 023 008 degrees QTc Int : 465 ms Normal sinus rhythm Cannot rule out Anterior infarct , age undetermined Abnormal ECG Confirmed by HERON CRANE, DAVIDA ([id number]), restaurant expeditor [employer] ([id number]) on 11/05/2019 2:55:41 PM Referred By: JOSE Confirmed By:GEORGINA SHELBY MD
--- NOTE | 2019-10-31 18:11 | RAD_ITS ---
STUDY: X-RAY CHEST REASON FOR EXAM: Female, 44 years old. CHEST PAIN WITH RADIATION TO L ARM TECHNIQUE: Single AP portable view of the chest. COMPARISON: 02/13/2017 FINDINGS: The lungs are clear and expanded. There is no demonstrated pleural abnormality. Normal size heart. Normal mediastinum and leonard. Normal visualized pulmonary arteries. Normal visualized aortic arch and descending thoracic aorta. Normal visualized thoracic spine. Normal visualized ribs, clavicles, and shoulders. There is no demonstrated abnormality of the visualized soft tissue structures of the upper abdomen. RAD/Chest 1 View (Portable) IMPRESSION: Normal x-ray examination of the chest. Electronically Signed: Lemuel Anderson MD at 19:01 EST Tel , Service support ,
[2019-10-31] MEDS: Aspirin 81 MG TAB.CHEW 324 MG PO (18:16)
[2019-10-31 18:25] LABS: Absolute Lymphocyte Count 1.93 X10^3/uL (0.83-4.51); Basophil# 0.05 X10^3/uL; Basophil% 0.8 % (0-1); Eosinophil# 0.28 X10^3/uL; Eosinophils% 4.2 % (0-5); Hematocrit 39.4 % (37-47); Hemoglobin 13.2 g/dL (12.0-15.0); Lymphocyte # 1.93 X10^3/ul (4.0); Lymphocyte % 29.2 % (19-41); Mean Corp Hgb Conc 33.5 g/dL (32-36); Mean Corpuscular Hgb 28.8 pg (27.0-32.0); Mean Platelet Vol. 10.1 fl (6.2-12.0); Monocyte# 0.33 X10^3/uL; NRBC Flagged by Analyzer 0 % (0-5); Neutrophil # 4.01 X10^3/uL (2.7-7.7); Neutrophil % 60.5 % (47-70); Platelet Count 210 K/mm3 (150-450); RBC Distribution Width CV 13.1 % (11.6-14.6); RBC Distribution Width SD 40.6 fl (35.1-43.9); Red Blood Count 4.58 M/mm3 (4.2-5.4); White Blood Count 6.6 K/mm3 (4.4-11.0)
[2019-10-31 18:40] LABS: Anion Gap 6 (5-15); BUN 9 mg/dL (7-18); Calcium,Total 8.9 mg/dL (8.5-10.1); Chloride 108 mmol/L (98-107); EST Glomerular Filtration Rate 73 mL/min (>60); Est Glom Filt Rate - Afr Amer 88 mL/min (>60); Estimated Creatinine Clearance 73.27 ml/min; Glucose 156 mg/dL (74-106); Potassium 3.5 mmol/L (3.5-5.1); Sodium Level 139 mmol/L (136-145)
[2019-10-31 19:13] VITALS: BP 121/85; PULSE 84; RESP 16; O2SAT 95
--- NOTE | 2019-10-31 19:24 | HP.PCM_ITS ---
Problem List (1) Chest pain Status: Acute (2) Asthma Status: Chronic (3) Bipolar disorder Status: Chronic (4) CAD (coronary artery disease) Status: Chronic (5) Diabetes mellitus, type II Status: Chronic (6) Family history of heart disease Status: Chronic (7) Gastroesophageal reflux disease Status: Chronic (8) History of cholecystectomy Status: Chronic (9) History of thyroidectomy Status: Chronic (10) Hypothyroidism (acquired) Status: Chronic Comment: acquired - due to complete thyroidectomy (11) Morbid obesity with BMI of 40.0-44.9, adult Status: Chronic (12) TONIO (obstructive sleep apnea) Status: Chronic History of Present Illness Date of Admission: 10/31/19 Chief Complaint: chest pain The patient is a 44 year old F with a significant history of hypertension; hyperlipidemia; hypothyroidism;CAD status post 2 coronary stents who presented at the emergency department with substernal chest pain that radiated to her left chest and to her left arm. She described the chest pain as sharp and episodic lasting for few seconds. Associated with her symptoms is fatigue; malaise; weakness and shortness of breath. She denied any nausea; vomiting or diaphoresis. She denied any aggravating or ameliorating factors to her pain. She takes baby aspirin every day and on the day of presentation she took her daily baby aspirin. At emergency department she was given to 324 mg of aspirin. Last treadmill stress test was on 02/13/2017. She reported that stress test at that time was negative. Past Medical History Past Medical History (Chronic Problems): Chronic Problems Family history of heart disease (Chronic) Hypothyroidism (acquired) (Chronic) acquired - due to complete thyroidectomy Morbid obesity with BMI of 40.0-44.9, adult (Chronic) Diabetes mellitus, type II (Chronic) Bipolar disorder (Chronic) History of cholecystectomy (Chronic) History of thyroidectomy (Chronic) Gastroesophageal reflux disease (Chronic) Asthma (Chronic) TONIO (obstructive sleep apnea) (Chronic) CAD (coronary artery disease) (Chronic) Allergies diphenhydramine HCl [From Benadryl] Adverse Reaction (Verified 08/21/18 07:08) Other doxycycline Adverse Reaction (Verified 08/21/18 07:08) Nausea/Vom/Diarrhea promethazine HCl [From Phenergan] Adverse Reaction (Verified 08/21/18 07:08) Nausea sumatriptan [From Imitrex] Adverse Reaction (Verified 08/21/18 07:08) Other sumatriptan succinate [From Imitrex] Adverse Reaction (Verified 08/21/18 07:08) Other tramadol [From Ultram] Adverse Reaction (Verified 08/21/18 07:08) Other Home Medications: Ambulatory Orders Medication Instructions Recorded Levothyroxine [Synthroid] 175 mcg PO DAILY 11/05/14 Aspirin [Aspirin, Baby] 81 mg PO DAILY@0800 #30 tab.chew 11/20/14 Atorvastatin Calcium [Lipitor] 20 mg PO DAILY@2200 #30 tablet 11/20/14 Clopidogrel Bisulfate [Plavix] 75 mg PO DAILY #30 tablet 11/20/14 Carvedilol [Coreg (Beta Jacques)] 12.5 mg PO BID 12/16/14 metFORMIN HCl [Glucophage] 1,000 mg PO BIDCM 07/17/15 Cholecalciferol (Vitamin D3) 1,000 unit PO DAILY 03/22/16 [Vitamin D3] Famotidine [Pepcid] 40 mg PO QHS 04/17/16 Sitagliptin Phosphate [Januvia] 100 mg PO DAILY 06/05/17 Ascorbic Acid [Vitamin C] 500 mg PO DAILY@0800 08/21/18 Gabapentin [Neurontin] 200 mg PO QHS 08/21/18 Melatonin 10 mg PO QHS 08/21/18 Vitamin B Complex 1 each PO DAILY 08/21/18 Ferrous Sulfate 325 mg PO QHS 10/31/19 Pantoprazole Sodium [Protonix] 40 mg PO BREAKFAST 10/31/19 traZODone [Desyrel] 50 mg PO QHS 10/31/19 traZODone [Desyrel] 100 mg PO QHS 10/31/19 Surgical History: cholecystectomy, hysterectomy, - - Bladder suspension, ganglion cyst removal from the left wrist, thyroidectomy. 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 Denies: Chills, Fever, Weight Change HEENT: Denies: Head Aches, Sinus Congestion, Sinus Drainage Cardiovascular: Reports: Chest Pain. Denies: Palpitations Respiratory: Reports: Shortness of Breath. Denies: Cough, Shortness of breath at rest, Sputum production Gastrointestinal: Denies: Abdominal Pain, Nausea, Vomiting Genitourinary: Denies: Dysuria Musculoskeletal: Reports: Arm Pain. Denies: Joint Pain, Joint Tenderness Skin: Denies: Rash, Wounds Neurological: Denies: Numbness, Tingling, Focal weakness Psychiatric: Denies: Anxiety, Depression, Homicidal Ideations, Suicidal Ideations Hematologic/ Lymphatic: Denies: Easy Bruising, Easy Bleeding VTE Information - Inpt Only VTE Present on Admission: No VTE Mechan Device Prophylaxis: None VTE Pharm Prophylaxis ordered?: Yes Patient Problems: Active and Suspected Problems Chest pain (Acute) - Physical Exam Vitals/I&O's: Vital Signs Temp Pulse Resp BP Pulse Ox 97.0 F L 84 16 121/85 H 95 10/31/19 17:21 10/31/19 19:13 10/31/19 19:13 10/31/19 19:13 10/31/19 19:13 Oxygen Delivery Method Room Air Weight: 104.326 kg Body Mass Index (BMI) 38.2 Finger Stick Blood Glucose 163 General: Alert, Oriented x3, Cooperative HEENT: Atraumatic, PERRLA, EOMI, Normocephalic Neck: Supple, No JVD, Negative Carotid Bruits Lungs: Clear to auscultation, Normal air movement Cardiovascular: Regular rate, Normal S1, Normal S2, No murmurs Abdomen: Bowel Sounds Present, Soft, Non Tender Extremities: No edema, Capillary Refill Less than 3 Seconds Skin: No rashes, No breakdown Musculoskeletal: No Tenderness to Palpation of Joints or Extremities Neurological: Cranial nerves II-XII grossly intact Psych/Mental Status: Normal Affect, Appropriate Laboratory Results 10/31/19 17:50: WBC 6.6, RBC 4.58, Hgb 13.2, Hct 39.4, MCV 86.0, MCH 28.8, MCHC 33.5, RDW Std Deviation 40.6, RDW Coeff of Noman 13.1, Plt Count 210, MPV 10.1, Immature Gran % (Auto) 0.300, Neut % (Auto) 60.5, Lymph % (Auto) 29.2, [place] % (Auto) 5.0, Eos % (Auto) 4.2, Baso % (Auto) 0.8, Absolute Neuts (auto) 4.0, Absolute Lymphs (auto) 1.93, Nucleated RBC % 0 10/31/19 17:50: Sodium 139, Potassium 3.5, Chloride 108 H, Carbon Dioxide 25.0, Anion Gap 6, BUN 9, Creatinine 0.90, Estim Creat Clear Calc 73.27, Est GFR (MDRD) Af Amer 88, Est GFR (MDRD) Non-Af 73, BUN/Creatinine Ratio 10.0, Glucose 156 H, Calcium 8.9, Troponin I < 0.015 Assessment/Plan All Active Problems Chest pain (Acute) TIA (transient ischemic attack) (Ruled-out) The patient is a 44 year old F with a significant history of hypertension; hyperlipidemia; hypothyroidism;CAD status post 2 coronary stents who presented at the emergency department with substernal chest pain that radiated to her left chest. Chest pain Place on a monitored bed at PCU CXR independently reviewed confirms no acute cardiopulmonary process. EKG independently reviewed confirms sinus rhythm with no acute ST or T abnormalities. Received aspirin 324 mg at emergency department. ASA 81 mg p.o. daily SL NTG 0.4 mg prn as needed for chest pain We will check lipid panel. Statin: On home Lipitor 20 mg daily. Escalate to Lipitor 40 mg daily. Coreg continued Anti-P2Y12 Receptor antibody: Home Plavix continued Initial troponin was negative. Serial cardiac enzymes Stat EKG as needed for chest pain Treadmill stress test if cardiac enzymes are negative. Hypothyroidism Patient had a goiter for which she had a thyroidectomy and now dependent on Synthroid. Synthroid continued. Diabetes mellitus with hyperglycemia Tradjenta continued. Metformin held in the hospital settings are. Accu-Chek QA CHS. Hypertension On presentation her blood pressure was not within goal. Coreg continued. Trend blood pressure and adjust blood pressure medication as necessary. DVT prophylaxis Subcutaneous Lovenox. Code Visit Inpatient E&M: 76117 Init Hosp L3
--- NOTE | 2019-10-31 19:38 | ED.DCSUM_ITS ---
- ER Visit Summary Date of Service: 10/31/19 Chief Complaint: Chest pain History of Present Illness: The patient is a 44 F presenting with chest pain. This started 2 hours prior to arrival. She states she has had mid and left- sided chest pain which radiates to her left arm. She states initially was sharp and is now an aching sensation. She also complains of generalized fatigue. She denies shortness of breath or nausea. She has a history of 2 previous stents 5 years ago. She has history of diabetes, hypertension, hypercholesterolemia, early family history of heart disease. She is not a smoker. Denies PE/DVT risk factors. Physical Examination: Vitals are stable. Patient is afebrile. Alert no acute distress. HEENT exam is unremarkable. Neck is supple. Lungs are clear and equal bilaterally. Heart is regular rate and rhythm. Abdomen is soft nontender nondistended. Extremities are unremarkable. Skin is warm and dry. No focal neurologic deficit. Remainder of exam is unremarkable. Emergency Department Course and Treatment: Patient was given aspirin on arrival. EKG is sinus rate of 93. Chest x-ray shows no acute process. CBC, chemistries unremarkable. Troponin is negative. On reevaluation, patient is resting comfortably. Discussed with the hospitalist for observation. Disposition: Observation Impression: Chest pain This note was generated with [employer] dictation software. It may contain incorrect words, spelling, and punctuation that were not noted in review of the chart prior to signing ED Disposition - Plan for ED Patient: Referrals: Татьяна Sprague NP-C [Primary Care Provider] -
[2019-10-31 19:50] VITALS: BP 121/85; PULSE 84; RESP 16; O2SAT 95
[2019-10-31 20:19] VITALS: BMI 36.1
[2019-10-31 20:24] VITALS: PULSE 75
[2019-10-31 20:26] VITALS: BP 140/75; PULSE 79; RESP 16; TEMP 36.6; O2SAT 97
[2019-10-31 20:43] VITALS: BMI 36.1
--- NOTE | 2019-10-31 20:51 | EKG12_ITS ---
Test Reason : CP ADMIT Blood Pressure : / mmHG Vent. Rate : 072 BPM Atrial Rate : 072 BPM P-R Int : 176 ms QRS Dur : 088 ms QT Int : 418 ms P-R-T Axes : 040 011 014 degrees QTc Int : 457 ms Normal sinus rhythm Normal ECG When compared with ECG of 13-FEB-2017 05:17, No significant change was found Confirmed by VERA CRANE, EWA ([id number]), news copy editor YESIKA MORENO ([id number]) on 11/03/2019 8:18:42 AM Referred By: DR PRESCOTT Confirmed By:EWA GAMEZ MD
[2019-10-31] MEDS: Atorvastatin Calcium 40 MG Tablet PO (22:58)
[2019-10-31] MEDS: Gabapentin 100 MG Capsule 200 MG PO (23:13)
[2019-10-31] MEDS: MELATONIN 10 MG TABLET PO (23:13)
[2019-10-31] MEDS: Carvedilol 12.5 MG Tablet PO (23:14)
[2019-10-31 23:21] LABS: Bedside Glucose 98 mg/dL (70-110)
[2019-11-01] VITALS (9 sets, daily range): BP systolic 101–133; BP diastolic 56–89; PULSE 68–77; RESP 12–18; TEMP 36.6–36.8; O2SAT 94–97
[2019-11-01] MEDS: traZODone 50 MG Tablet PO ×2 (00:54→21:23)
[2019-11-01] MEDS: traZODone 100 MG Tablet PO ×2 (00:55→21:22)
[2019-11-01 06:51] LABS: Anion Gap 4 (5-15); BUN 9 mg/dL (7-18); BUN/Creat Ratio 10.2 RATIO (10-20); Calcium,Total 8.7 mg/dL (8.5-10.1); Chloride 109 mmol/L (98-107); Cholesterol 139 mg/dL (200); Creatinine, Serum 0.88 mg/dL (0.55-1.02); EST Glomerular Filtration Rate 75 mL/min (>60); Est Glom Filt Rate - Afr Amer 91 mL/min (>60); Estimated Creatinine Clearance 74.94 ml/min; Glucose 113 mg/dL (74-106); High Density Lipoprotein 40 mg/dL; Sodium Level 140 mmol/L (136-145); Triglycerides 169 mg/dL; Very Low Density Lipoprotein 34 mg/dL (5-40)
[2019-11-01] MEDS: Levothyroxine 175 MCG Tablet PO (06:57)
[2019-11-01 07:11] LABS: Bedside Glucose 119 mg/dL (70-110)
[2019-11-01] MEDS: Aspirin 81 MG TAB.CHEW PO (08:47)
[2019-11-01] MEDS: Enoxaparin 40 MG/0.4 ML Syringe SC (08:47)
[2019-11-01] MEDS: Clopidogrel Bisulfate 75 MG Tablet PO (08:47)
[2019-11-01] MEDS: Pantoprazole Sodium 40 MG Tablet PO (08:47)
[2019-11-01] MEDS: Carvedilol 12.5 MG Tablet PO ×2 (08:47→21:23)
[2019-11-01] MEDS: LINAGLIPTIN 5 MG TABLET PO (08:48)
[2019-11-01 11:16] LABS: Bedside Glucose 136 mg/dL (70-110)
--- NOTE | 2019-11-01 12:04 | PN_ITS ---
<Tono Lindsey - Last Filed: 11/01/19 12:04> Patient Problems: Active and Suspected Problems Chest pain (Acute) Reason for Visit: chest pain Subjective: Pt states pain is different from prior event where she had 2 stents. Previously she had constant chest pressure. This time she had midsternal sharp pain radiating into the left chest, which would come on for a few seconds then go away. it would come and go for 20-30 mins. She had an episode yesterday that went into her left arm with SOB. Overnight she had an episode at about 0115. She has not had any since. Vitals/I&O's: Vital Signs Temp Pulse Resp BP Pulse Ox 97.8 F 74 12 104/62 96 11/01/19 08:45 11/01/19 08:45 11/01/19 08:45 11/01/19 08:45 11/01/19 08:45 Oxygen Delivery Method Room Air Weight: 217 lb 2.485 oz Body Mass Index (BMI) 36.1 Finger Stick Blood Glucose 163 Intake and Output for Last 24 Hours 10/30/19 10/31/19 11/01/19 23:59 23:59 23:59 Intake Total 600 / 600 1250 / 1250 Balance 600 / 600 1250 / 1250 General: Alert, Oriented x3, Cooperative HEENT: Atraumatic, PERRLA, EOMI, Normocephalic Neck: Supple, No JVD, Negative Carotid Bruits Lungs: Clear to auscultation, Normal air movement Cardiovascular: Regular rate, No murmurs Abdomen: Bowel Sounds Present, Soft, Non Tender Extremities: No edema, Capillary Refill Less than 3 Seconds Skin: No rashes, No breakdown Musculoskeletal: No Tenderness to Palpation of Joints or Extremities Neurological: Cranial nerves II-XII grossly intact Psych/Mental Status: Normal Affect, Appropriate, Alert and oriented to time, place, person, mood and affect Laboratory Results 10/31/19 17:50: WBC 6.6, RBC 4.58, Hgb 13.2, Hct 39.4, MCV 86.0, MCH 28.8, MCHC 33.5, RDW Std Deviation 40.6, RDW Coeff of Noman 13.1, Plt Count 210, MPV 10.1, Immature Gran % (Auto) 0.300, Neut % (Auto) 60.5, Lymph % (Auto) 29.2, [place] % (Auto) 5.0, Eos % (Auto) 4.2, Baso % (Auto) 0.8, Absolute Neuts (auto) 4.0, Absolute Lymphs (auto) 1.93, Nucleated RBC % 0 10/31/19 17:50: Sodium 139, Potassium 3.5, Chloride 108 H, Carbon Dioxide 25.0, Anion Gap 6, BUN 9, Creatinine 0.90, Estim Creat Clear Calc 73.27, Est GFR (MDRD) Af Amer 88, Est GFR (MDRD) Non-Af 73, BUN/Creatinine Ratio 10.0, Glucose 156 H, Calcium 8.9, Troponin I < 0.015 10/31/19 21:30: Troponin I < 0.015 10/31/19 22:52: POC Glucose 98 10/31/19 23:08: Troponin I < 0.015 11/01/19 05:48: Sodium 140, Potassium 4.0, Chloride 109 H, Carbon Dioxide 27.0, Anion Gap 4 L, BUN 9, Creatinine 0.88, Estim Creat Clear Calc 74.94, Est GFR (MD RD) Af Amer 91, Est GFR (MDRD) Non-Af 75, BUN/Creatinine Ratio 10.2, Glucose 113 H, Calcium 8.7, Triglycerides 169, Cholesterol 139, LDL Cholesterol 65, VLDL Cholesterol 34, HDL Cholesterol 40 11/01/19 06:56: POC Glucose 119 H 11/01/19 11:06: POC Glucose 136 H Current Medications Acetaminophen (Tylenol) 650 mg PO Q6H PRN PRN PRN Reason: Pain Score 1-10/10 Aspirin (Aspirin, Baby) 81 mg PO DAILY@0800 [facility] Last Admin: 11/01/19 08:47 Dose: 81 mg Documented by: Atorvastatin Calcium (Lipitor) 40 mg PO QHS [facility] Last Admin: 10/31/19 22:58 Dose: 40 mg Documented by: Carvedilol (Coreg) 12.5 mg PO BID [facility] Last Admin: 11/01/19 08:47 Dose: 12.5 mg Documented by: Clopidogrel Bisulfate (Plavix) 75 mg PO DAILY [facility] Last Admin: 11/01/19 08:47 Dose: 75 mg Documented by: Dextrose (D50w Syringe) 0 gm IV X1 PRN; Protocol PRN Reason: Hypoglycemia Enoxaparin Sodium (Lovenox) 40 mg SC DAILY [facility] Last Admin: 11/01/19 08:47 Dose: 40 mg Documented by: Ferrous Sulfate (Ferrous Sulfate) 325 mg PO QHS [facility] Gabapentin (Neurontin) 200 mg PO QHS [facility] Last Admin: 10/31/19 23:13 Dose: 200 mg Documented by: Glucagon () 1 mg IM .X1 PRN PRN Reason: Hypoglycemia Sodium Chloride () 250 mls @ 15 mls/hr IV .[id number] PRN PRN Reason: Saline Flush Sodium Chloride () 250 mls @ 15 mls/hr IV .[id number] PRN PRN Reason: Additional IVPB Infusion Insulin Human Lispro (Humalog Kwikpen (Bkc)) 0 unit SC ACHS [facility]; Protocol Last Admin: 11/01/19 11:15 Dose: Not Given Documented by: Levothyroxine Sodium (Synthroid) 175 mcg PO DAILY@0600 [facility] Last Admin: 11/01/19 06:57 Dose: 175 mcg Documented by: Linagliptin (Tradjenta) 5 mg PO DAILY [facility] Last Admin: 11/01/19 08:48 Dose: 5 mg Documented by: Melatonin (Melatonin) 10 mg PO QHS [facility] Last Admin: 10/31/19 23:13 Dose: 10 mg Documented by: Nitroglycerin (Nitrostat) 0.4 mg SUBLINGUAL Q5M PRN PRN Reason: CHEST PAIN Pantoprazole Sodium (Protonix) 40 mg PO DAILY [facility] Last Admin: 11/01/19 08:47 Dose: 40 mg Documented by: Sodium Chloride () 10 - 40 ml IV UD PRN PRN Reason: SALINE FLUSH Trazodone HCl (Desyrel) 100 mg PO QHS [facility] Last Admin: 11/01/19 00:55 Dose: 100 mg Documented by: Trazodone HCl (Desyrel) 50 mg PO QHS [facility] Last Admin: 11/01/19 00:54 Dose: 50 mg Documented by: STROKE Vital Signs/Narrative: Vital Signs Temp Pulse Resp BP Pulse Ox 11/01/19 08:45 97.8 F 74 12 104/62 96 Medical Necessity - Tobacco Use Smoking Status: Never smoker Assessment/Plan All Active Problems Chest pain (Acute) 1. Chest pain in setting of CAD with 2 prior stents - trop neg x 3. EKG neg. tele neg. Stress test in AM. Continue asa/statin/coreg/plavix. FLP on chart. 3. hypothyroidism - synthroid 4. DMt2 w/ Obesity - dietary consult. - metformin held. continue tradjenta, SSI 5. GERD - on ppi 6. HTN/HLD - home meds DVT ppx: lovenox This patient was seen by Tono Lindsey PA-C under the supervision of Doctor Glen. <Lexie Carroll E - Last Filed: 11/01/19 12:19> Vitals/I&O's: Vital Signs Temp Pulse Resp BP Pulse Ox 97.8 F 74 12 104/62 96 11/01/19 08:45 11/01/19 08:45 11/01/19 08:45 11/01/19 08:45 11/01/19 08:45 Oxygen Delivery Method Room Air Weight: 217 lb 2.485 oz Body Mass Index (BMI) 36.1 Finger Stick Blood Glucose 163 Intake and Output for Last 24 Hours 10/30/19 10/31/19 11/01/19 23:59 23:59 23:59 Intake Total 600 / 600 1250 / 1250 Balance 600 / 600 1250 / 1250 Laboratory Results 10/31/19 17:50: WBC 6.6, RBC 4.58, Hgb 13.2, Hct 39.4, MCV 86.0, MCH 28.8, MCHC 33.5, RDW Std Deviation 40.6, RDW Coeff of Noman 13.1, Plt Count 210, MPV 10.1, Immature Gran % (Auto) 0.300, Neut % (Auto) 60.5, Lymph % (Auto) 29.2, [place] % (Auto) 5.0, Eos % (Auto) 4.2, Baso % (Auto) 0.8, Absolute Neuts (auto) 4.0, Absolute Lymphs (auto) 1.93, Nucleated RBC % 0 10/31/19 17:50: Sodium 139, Potassium 3.5, Chloride 108 H, Carbon Dioxide 25.0, Anion Gap 6, BUN 9, Creatinine 0.90, Estim Creat Clear Calc 73.27, Est GFR (MDRD) Af Amer 88, Est GFR (MDRD) Non-Af 73, BUN/Creatinine Ratio 10.0, Glucose 156 H, Calcium 8.9, Troponin I < 0.015 10/31/19 21:30: Troponin I < 0.015 10/31/19 22:52: POC Glucose 98 10/31/19 23:08: Troponin I < 0.015 11/01/19 05:48: Sodium 140, Potassium 4.0, Chloride 109 H, Carbon Dioxide 27.0, Anion Gap 4 L, BUN 9, Creatinine 0.88, Estim Creat Clear Calc 74.94, Est GFR (MDRD) Af Amer 91, Est GFR (MDRD) Non-Af 75, BUN/Creatinine Ratio 10.2, Glucose 113 H, Calcium 8.7, Triglycerides 169, Cholesterol 139, LDL Cholesterol 65, VLDL Cholesterol 34, HDL Cholesterol 40 11/01/19 06:56: POC Glucose 119 H 11/01/19 11:06: POC Glucose 136 H Current Medications Acetaminophen (Tylenol) 650 mg PO Q6H PRN PRN PRN Reason: Pain Score 1-10/10 Aspirin (Aspirin, Baby) 81 mg PO DAILY@0800 [facility] Last Admin: 11/01/19 08:47 Dose: 81 mg Documented by: Atorvastatin Calcium (Lipitor) 40 mg PO QHS [facility] Last Admin: 10/31/19 22:58 Dose: 40 mg Documented by: Carvedilol (Coreg) 12.5 mg PO BID [facility] Last Admin: 11/01/19 08:47 Dose: 12.5 mg Documented by: Clopidogrel Bisulfate (Plavix) 75 mg PO DAILY [facility] Last Admin: 11/01/19 08:47 Dose: 75 mg Documented by: Dextrose (D50w Syringe) 0 gm IV X1 PRN; Protocol PRN Reason: Hypoglycemia Enoxaparin Sodium (Lovenox) 40 mg SC DAILY [facility] Last Admin: 11/01/19 08:47 Dose: 40 mg Documented by: Ferrous Sulfate (Ferrous Sulfate) 325 mg PO QHS [facility] Gabapentin (Neurontin) 200 mg PO QHS [facility] Last Admin: 10/31/19 23:13 Dose: 200 mg Documented by: Glucagon () 1 mg IM .X1 PRN PRN Reason: Hypoglycemia Sodium Chloride () 250 mls @ 15 mls/hr IV .[id number] PRN PRN Reason: Saline Flush Sodium Chloride () 250 mls @ 15 mls/hr IV .[id number] PRN PRN Reason: Additional IVPB Infusion Insulin Human Lispro (Humalog Kwikpen (Bkc)) 0 unit SC ACHS [facility]; Protocol Last Admin: 11/01/19 11:15 Dose: Not Given Documented by: Levothyroxine Sodium (Synthroid) 175 mcg PO DAILY@0600 [facility] Last Admin: 11/01/19 06:57 Dose: 175 mcg Documented by: Linagliptin (Tradjenta) 5 mg PO DAILY [facility] Last Admin: 11/01/19 08:48 Dose: 5 mg Documented by: Melatonin (Melatonin) 10 mg PO QHS [facility] Last Admin: 10/31/19 23:13 Dose: 10 mg Documented by: Nitroglycerin (Nitrostat) 0.4 mg SUBLINGUAL Q5M PRN PRN Reason: CHEST PAIN Pantoprazole Sodium (Protonix) 40 mg PO DAILY [facility] Last Admin: 11/01/19 08:47 Dose: 40 mg Documented by: Sodium Chloride () 10 - 40 ml IV UD PRN PRN Reason: SALINE FLUSH Trazodone HCl (Desyrel) 100 mg PO QHS [facility] Last Admin: 11/01/19 00:55 Dose: 100 mg Documented by: Trazodone HCl (Desyrel) 50 mg PO QHS [facility] Last Admin: 11/01/19 00:54 Dose: 50 mg Documented by: STROKE Vital Signs/Narrative: Vital Signs Temp Pulse Resp BP Pulse Ox 11/01/19 08:45 97.8 F 74 12 104/62 96 Assessment/Plan Hospitalist note: I am seeing this patient in conjunction with Tono Lindsey. I independently seen and examined the patient. Progress note above, laboratory data and imaging studies reviewed and I concur with above plan. This morning, patient denied any more chest pain, no shortness of breath. She states that she had couple of episodes of chest pain last night, was short of breath, lasted for several minutes. This morning, her vital signs are stable. - Physical Exam General: Alert, Oriented x3, Cooperative, No apparent distress. HEENT: Atraumatic, PERRLA, EOMI. Neck: Supple, No JVD, Negative Carotid Bruits, Trachea Midline, Thyroid Normal. Lungs: Clear to auscultation, Normal air movement, No rhonchi, No wheeze, No rales. Cardiovascular: Regular rate, Regular Rhythm, Normal S1, Normal S2, PMI Normal. Abdomen: Bowel Sounds Present, Soft, Non Tender, Non-Distended, No Hepato- splenomegaly. Extremities: No clubbing, No cyanosis, No edema Skin: No rashes, No breakdown Neurological: Neuro grossly intact Vital Signs are stable. Assessment and plan: #1 chest pain: In the setting of history of CAD status post stents. EKG revealed no acute hemic changes. Troponin was negative x3. Chest x-ray without acute findings. Plan for stress test tomorrow morning. #2 other chronic medical problems: Stable, continue current medications as above. This note was generated with [employer] dictation software. It may contain incorrect words, spelling, and punctuation that were not noted in checking the note before signing. Code Visit OBSV E&M: 61395 Subsequent observation care L2
[2019-11-01] MEDS: Acetaminophen 325 MG Tablet 650 MG PO (12:24)
[2019-11-01] MEDS: Insulin Lispro 100 UNIT/ML INSULN.PEN SC (16:18)
[2019-11-01 16:25] LABS: Bedside Glucose 215 mg/dL (70-110)
[2019-11-01] MEDS: 0.9% Saline Lock 10 ML Syringe IV (20:30)
[2019-11-01] MEDS: Ferrous Sulfate 325 MG Tablet PO (21:23)
[2019-11-01] MEDS: Atorvastatin Calcium 40 MG Tablet PO (21:23)
[2019-11-01] MEDS: Gabapentin 100 MG Capsule 200 MG PO (21:23)
[2019-11-01] MEDS: MELATONIN 10 MG TABLET PO (21:23)
[2019-11-01 21:35] LABS: Bedside Glucose 97 mg/dL (70-110)
[2019-11-02 02:58] VITALS: PULSE 68
[2019-11-02 03:00] VITALS: BP 131/76; PULSE 68; RESP 16; TEMP 36.4; O2SAT 95
[2019-11-02] MEDS: Levothyroxine 175 MCG Tablet PO (05:18)
[2019-11-02] MEDS: Clopidogrel Bisulfate 75 MG Tablet PO (05:18)
[2019-11-02] MEDS: Aspirin 81 MG TAB.CHEW PO (05:18)
[2019-11-02 05:31] LABS: Bedside Glucose 110 mg/dL (70-110)
[2019-11-02 08:50] VITALS: BP 127/89; PULSE 72; RESP 18; TEMP 36.9; O2SAT 99
[2019-11-02] MEDS: Enoxaparin 40 MG/0.4 ML Syringe SC (10:56)
[2019-11-02] MEDS: Pantoprazole Sodium 40 MG Tablet PO (10:56)
[2019-11-02] MEDS: Carvedilol 12.5 MG Tablet PO (10:56)
[2019-11-02] MEDS: LINAGLIPTIN 5 MG TABLET PO (10:56)
--- NOTE | 2019-11-02 12:00 | DCINST_ITS ---
- Discharge Diagnoses Current Active Problems: Current Active and Chronic Problems Chest pain (Acute) You will use the following diet at home:: Calorie/Carbohydrate Controlled (specify 1200, 1400, etc) - 1800 celso Your food should be the consistency of: Regular Your liquids should be the consistency of: Regular/Thin Discharge Activity: Return to Normal Activity Weight Bearing Status: Full weight bearing Allergies/Adverse Reactions: Allergies diphenhydramine HCl [From Benadryl] Adverse Reaction (Verified 08/21/18 07:08) Other doxycycline Adverse Reaction (Verified 08/21/18 07:08) Nausea/Vom/Diarrhea promethazine HCl [From Phenergan] Adverse Reaction (Verified 08/21/18 07:08) Nausea sumatriptan [From Imitrex] Adverse Reaction (Verified 08/21/18 07:08) Other sumatriptan succinate [From Imitrex] Adverse Reaction (Verified 08/21/18 07:08) Other tramadol [From Ultram] Adverse Reaction (Verified 08/21/18 07:08) Other Medications to take at Discharge Levothyroxine [Synthroid] 175 mcg PO DAILY 11/05/14 Aspirin [Aspirin, Baby] 81 mg PO DAILY@0800 #30 tab.chew 11/20/14 Atorvastatin Calcium [Lipitor] 20 mg PO DAILY@2200 #30 tablet 11/20/14 Clopidogrel Bisulfate [Plavix] 75 mg PO DAILY #30 tablet 11/20/14 Carvedilol [Coreg (Beta Jacques)] 12.5 mg PO BID 12/16/14 metFORMIN HCl [Glucophage] 1,000 mg PO BIDCM 07/17/15 Cholecalciferol (Vitamin D3) [Vitamin D3] 1,000 unit PO DAILY 03/22/16 Famotidine [Pepcid] 40 mg PO QHS 04/17/16 Sitagliptin Phosphate [Januvia] 100 mg PO DAILY 06/05/17 Ascorbic Acid [Vitamin C] 500 mg PO DAILY@0800 08/21/18 Gabapentin [Neurontin] 200 mg PO QHS 08/21/18 Melatonin 10 mg PO QHS 08/21/18 Vitamin B Complex 1 each PO DAILY 08/21/18 Ferrous Sulfate 325 mg PO QHS 10/31/19 Pantoprazole Sodium [Protonix] 40 mg PO BREAKFAST 10/31/19 traZODone [Desyrel] 50 mg PO QHS 10/31/19 traZODone [Desyrel] 100 mg PO QHS 10/31/19 Pantoprazole Sodium [Protonix] 40 mg PO DAILY tablet 11/02/19 Primary Care Physician: Татьяна Sprague NP-C [Primary Care Provider] - Please follow up with your Primary Care Physician in: in 1-2 weeks Test Results: Test results from this visit will be discussed in further detail at your follow- up appointment, if applicable.
[2019-11-02 12:20] LABS: Bedside Glucose 137 mg/dL (70-110)
--- NOTE | 2019-11-02 12:30 | STRESSREP ---
Stress Test Report Exercise myocardial perfusion stress test. 44-year-old lady with a history of chest pain. Stress protocol: Resting EKG demonstrates normal sinus rhythm with a rate of 70 beats minute normal intervals are noted resting blood pressure is 112/80 mmHg. The patient exercised according to the regular [facility] protocol for a total duration of 9 minutes. The maximum heart rate attained was 155 bpm which was 87% of maximum predicted heart rate the maximum workload was 10.1 metabolic equivalents. At rest there were no ST or T wave changes noted to suggest ischemia at peak exercise upsloping ST changes only were noted with no meet the criteria for ischemia. No clinical angina was noted. Test was terminated due to dyspnea and the target heart rate being achieved. Myocardial perfusion protocol. 11.7 mCi of technetium 99m sestamibi was injected at rest. The patient exercised according to regular [facility]wn protocol for total duration of 9 minutes at peak exercise 34.1 mCi of technetium 99m sestamibi was injected stress images were obtained stress and rest images were reconstructed in comparing the short axis vertical and horizontal long axis. Gated images were also obtained per Perfusion SPECT analysis: Review of the stress images demonstrate normal uptake of tracer noted in all areas of the myocardium the resting images similar demonstrate normal uptake of tracer noted in all areas of the myocardium. No areas of reversibility are noted suggest ischemia no previous infarct is noted. Gated SPECT analysis: The gated ejection fraction is 76%. Conclusion: Normal exercise myocardial perfusion stress test at a high workload. Preserved ejection fraction.
--- NOTE | 2019-11-02 15:57 | PCM.DC.SUM ---
Discharge Date and Diagnosis Date of Admission: 10/31/19 Date of Discharge: 11/02/19 - Primary Discharge Diagnosis Chest pain - musculoskeletal hx cad with 2 prior stents dmt2 htn hld hypothyroidism gerd - Secondary Discharge Diagnosis Chronic Problems Family history of heart disease (Chronic) Hypothyroidism (acquired) (Chronic) acquired - due to complete thyroidectomy Morbid obesity with BMI of 40.0-44.9, adult (Chronic) Diabetes mellitus, type II (Chronic) Bipolar disorder (Chronic) History of cholecystectomy (Chronic) History of thyroidectomy (Chronic) Gastroesophageal reflux disease (Chronic) Asthma (Chronic) TONIO (obstructive sleep apnea) (Chronic) CAD (coronary artery disease) (Chronic) Hospital Course and Treatment Imaging Results: RAD/Chest 1 View (Portable) IMPRESSION: Normal x-ray examination of the chest. RAD/Chest 1 View (Portable) IMPRESSION: Normal x-ray examination of the chest. Operations: None Procedures: Stress test Summary of Care Provided: Hospital Course: The patient is a 44 year old F with pmhx of CAD with 2 prior stents, otherwise as above who presented to the ER with c.o chest pain. This was described as substernal pain radiating into the left chest and left arm, sharp in quality, off and on for several seconds for a total of 20-30 mins. In the ER she was found to have negative tropoin, negative CXR, negative EKG. She was admitted to the PCU on tele for chest pain. She had negative troponin x 3, no events on tele, and had a negative stress test. She was felt to have had musculoskeletal pain. She was discharged home in stable condition. She will need to follow up with her PCP in 1-2 weeks. This patient was seen by Tono Lindsey PA-C under the supervision of Dr. Sullivan. [] - Physical Exam Vitals/I&O's: Vital Signs Temp Pulse Resp BP Pulse Ox 98.5 F 72 18 127/89 H 99 11/02/19 08:50 11/02/19 08:50 11/02/19 08:50 11/02/19 08:50 11/02/19 08:50 Oxygen Delivery Method Room Air Weight: 217 lb 2.485 oz Body Mass Index (BMI) 36.1 Finger Stick Blood Glucose 163 Intake and Output for Last 24 Hours 10/31/19 11/01/19 11/02/19 23:59 23:59 23:59 Intake Total 600 / 600 1900 / 2500 940 / 940 Balance 600 / 600 1900 / 2500 940 / 940 General: Alert, Oriented x3, Cooperative HEENT: Atraumatic, PERRLA, EOMI, Normocephalic Neck: Supple, No JVD, Negative Carotid Bruits Lungs: Clear to auscultation, Normal air movement Cardiovascular: Regular rate, No murmurs Abdomen: Bowel Sounds Present, Soft, Non Tender Extremities: No edema, Capillary Refill Less than 3 Seconds Skin: No rashes, No breakdown Musculoskeletal: No Tenderness to Palpation of Joints or Extremities Neurological: Cranial nerves II-XII grossly intact Psych/Mental Status: Normal Affect, Appropriate, Alert and oriented to time, place, person, mood and affect Laboratory Results 11/01/19 16:13: POC Glucose 215 H 11/01/19 21:20: POC Glucose 97 11/02/19 05:24: POC Glucose 110 11/02/19 10:54: POC Glucose 137 H Discharge Diet: Low fat/ Low Cholesterol, 1800 Calorie Control Diet, 2000 mg Sodium Diet Discharge Activity: Return to Normal Activity Weight Bearing Status: Full weight bearing Home Medications: Medications to take at Discharge Levothyroxine [Synthroid] 175 mcg PO DAILY 11/05/14 Aspirin [Aspirin, Baby] 81 mg PO DAILY@0800 #30 tab.chew 11/20/14 Atorvastatin Calcium [Lipitor] 20 mg PO DAILY@2200 #30 tablet 11/20/14 Clopidogrel Bisulfate [Plavix] 75 mg PO DAILY #30 tablet 11/20/14 Carvedilol [Coreg (Beta Jacques)] 12.5 mg PO BID 12/16/14 metFORMIN HCl [Glucophage] 1,000 mg PO BIDCM 07/17/15 Cholecalciferol (Vitamin D3) [Vitamin D3] 1,000 unit PO DAILY 03/22/16 Famotidine [Pepcid] 40 mg PO QHS 04/17/16 Sitagliptin Phosphate [Januvia] 100 mg PO DAILY 06/05/17 Ascorbic Acid [Vitamin C] 500 mg PO DAILY@0800 08/21/18 Gabapentin [Neurontin] 200 mg PO QHS 08/21/18 Melatonin 10 mg PO QHS 08/21/18 Vitamin B Complex 1 each PO DAILY 08/21/18 Ferrous Sulfate 325 mg PO QHS 10/31/19 Pantoprazole Sodium [Protonix] 40 mg PO BREAKFAST 10/31/19 traZODone [Desyrel] 50 mg PO QHS 10/31/19 traZODone [Desyrel] 100 mg PO QHS 10/31/19 Pantoprazole Sodium [Protonix] 40 mg PO DAILY tab 11/02/19 Primary Care Physician: Татьяна Sprague NP-C [Primary Care Provider] - Please follow up with your Primary Care Physician in: in 1-2 weeks Please Follow Up With: Татьяна Sprague NP-C Disposition: Home Minutes spent on discharge:: 35 Medical Necessity - Tobacco Use Smoking Status: Never smoker Meaningful Use Info Meaningful Use Diagnoses (Choose all that apply): None applicable
== END 2019-11-02 12:04 | disposition home or self-care (01) ==
LOC: ED 18:20 → PCU 20:21
PROVIDERS: Hospitalist; Admitting Provider Hospitalist; Emergency Provider Emergency Medicine; PCP Nurse Practitioner Family; Visit Provider Internal Medicine
DX: R07.89 Other chest pain (principal); I25.10 Atherosclerotic heart disease of native coronary artery without angina pectoris; E11.65 Type 2 diabetes mellitus with hyperglycemia; R94.31 Abnormal electrocardiogram [ECG] [EKG]; I10 Essential (primary) hypertension; E78.5 Hyperlipidemia, unspecified; E03.9 Hypothyroidism, unspecified; K21.9 Gastro-esophageal reflux disease without esophagitis; E66.01 Morbid (severe) obesity due to excess calories; J45.909 Unspecified asthma, uncomplicated; F31.9 Bipolar disorder, unspecified; G47.33 Obstructive sleep apnea (adult) (pediatric); Z79.899 Other long term (current) drug therapy; Z95.5 Presence of coronary angioplasty implant and graft; Z79.82 Long term (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; Z79.84 Long term (current) use of oral hypoglycemic drugs; Z79.02 Long term (current) use of antithrombotics/antiplatelets; Z68.36 Body mass index [BMI] 36.0-36.9, adult; Z71.3 Dietary counseling and surveillance; Z82.49 Family history of ischemic heart disease and other diseases of the circulatory system
CPT/HCPCS: 36415; 71045; 78452; 80048; 80061; 82962; 84484; 85025; 93005; 93017; 96372; 97802; 99218; 99284; A9500; A4216; G0378

== ENCOUNTER 2020-08-14 20:54 | Emergency (ER) | payer OTHER, SELFPAY ==
[2020-08-14 20:55] VITALS: BP 160/95; PULSE 77; RESP 18; TEMP 35.4; O2SAT 98; BMI 38.7
[2020-08-14 20:57] VITALS: BP 160/95; PULSE 77; RESP 18; TEMP 35.4; O2SAT 98
--- NOTE | 2020-08-14 21:31 | CT_ITS ---
STUDY: CT SOFT TISSUE NECK WITH CONTRAST REASON FOR EXAM: Female, 45 years old. SWOLLEN NECK LEFT SIDE WITH PAIN SINCE THIS AM, HX SJOGREN''S DISEASE, THYROIDECTOMY, HYSTERECTOMY DUE TO STAGE 0 CERVICAL CA, HTN, 2 HEART STENTS RADIATION DOSAGE (If Supplied By Facility): CTDIvol = ( 19.11 ) mGy, DLP = ( 630.41 ) mGycm TECHNIQUE: The patient was scanned in a multi-detector CT scanner. High resolution transaxial imaging was performed following intravenous administration of IV 75mL Isovue-370. Sagittal and coronal images were reconstructed. Individualized dose optimization techniques were used for this CT. COMPARISON: None. FINDINGS: Normal bilateral parotid glands. Normal bilateral websphere developer spaces. Normal bilateral parapharyngeal spaces. Normal bilateral carotid spaces. Normal bilateral sublingual and submandibular glands and spaces. Normal visualized nasopharynx. Tortuous retropharyngeal left internal carotid artery. Otherwise normal retropharyngeal space. Normal perivertebral space. Normal visualized bilateral faucial tonsils. The visualized tongue, tongue base and oropharynx are normal. Numerous shotty to mildly enlarged lymph nodes on the left primarily lower jugular and supraclavicular lymph nodes. Lymph nodes are most numerous and are largest in the immediate supraclavicular region with long axis diameter of 1.6 and 1.5 cm. 2.2 cm long axis anterior cervical lymph nodes bilaterally. Shotty subcentimeter cervical lymph nodes in other areas. There is a hypoechoic nodule or cyst measuring 6 mm that is 5 mm deep to the skin on the superior surface of the medial shoulder and just lateral to the base of the neck. There is an underlying large venous structure from the posterior neck. Normal epiglottis, bilateral vallecula and hypopharynx. The pre-epiglottic and paraglottic adipose spaces are normal. Normal visualized bilateral piriform sinuses, aryepiglottic folds, vocal cords, and arytenoid-cricoid articulations. Normal subglottic trachea. Status post thyroidectomy. Normal visualized pulmonary apices. Normal visualized paranasal sinuses. Mild degenerative changes of the cervical spine. CT/Soft Tissue Neck WITH Contrast IMPRESSION: Numerous shotty to mildly enlarged enhancing/reactive lymph nodes at the base of the left neck and supraclavicular area. 2.2 cm long axis anterior cervical lymph nodes bilaterally with otherwise normal anatomy. Subcentimeter shotty lymph nodes elsewhere. There is a 6 mm cystic-appearing nodule 5 mm deep to the skin on the superior surface of the medial shoulder just lateral to the base of the left neck which may be a subcutaneous abscess, incidental or infected sebaceous cyst. This finding may be entirely incidental to the adenopathy. Tortuous retropharyngeal left internal carotid artery. Otherwise normal retropharyngeal space. Status post thyroidectomy. Electronically Signed: Valentine Archuleta MD at 22:49 EST , Service support ,
[2020-08-14] MEDS: 0.9% Normal Saline 1,000 ML 999 ML IV (21:56)
[2020-08-14 22:08] LABS: Absolute Lymphocyte Count 1.82 X10^3/uL (0.83-4.51); Absolute Neutrophil Count 3.4 X10^3/uL (2.0-7.7); Basophil# 0.06 X10^3/uL; Eosinophil# 0.27 X10^3/uL; Eosinophils% 4.6 % (0-5); Hematocrit 35.7 % (37-47); Lymphocyte # 1.82 X10^3/ul (4.0); Lymphocyte % 30.7 % (19-41); Mean Corp Hgb Conc 33.6 g/dL (32-36); Mean Corpuscular Hgb 29.6 pg (27.0-32.0); Mean Corpuscular Volume 87.9 fL (81-99); Monocyte# 0.37 X10^3/uL; Monocyte% 6.3 % (0-10); NRBC Flagged by Analyzer 0 % (0-5); Neutrophil # 3.38 X10^3/uL (2.7-7.7); Neutrophil % 57.1 % (47-70); Platelet Count 198 K/mm3 (150-450); RBC Distribution Width CV 12.9 % (11.6-14.6); RBC Distribution Width SD 42.1 fl (35.1-43.9); Red Blood Count 4.06 M/mm3 (4.2-5.4); White Blood Count 5.9 K/mm3 (4.4-11.0)
[2020-08-14 22:22] LABS: Anion Gap 7 (5-15); BUN 12 mg/dL (7-18); Calcium,Total 9.1 mg/dL (8.5-10.1); Chloride 106 mmol/L (98-107); Creatinine, Serum 0.92 mg/dL (0.55-1.02); EST Glomerular Filtration Rate 71 mL/min (>60); Est Glom Filt Rate - Afr Amer 86 mL/min (>60); Estimated Creatinine Clearance 70.95 ml/min; Glucose 198 mg/dL (74-106); Potassium 3.8 mmol/L (3.5-5.1); Sodium Level 141 mmol/L (136-145)
[2020-08-14 22:52] VITALS: BP 135/81; PULSE 85; RESP 18
--- NOTE | 2020-08-15 00:12 | ED.VISSUMM ---
- ER Visit Summary Date of Service: 08/15/20 Chief Complaint: Left anterolateral neck swelling. History of Present Illness: The patient is a 45 F. Prior lymphadenopathy. Patient has a history of coronary disease and type II diabetic. She has cardiac stents. Patient states that today she has no swelling and some mild discomfort in the left lateral aspect of base of her neck. She denies any fever or chills. Just says she feels tired. She denies any trouble breathing or swallowing. She denies any nausea, vomiting, diarrhea, or any other symptoms. No weight loss. She has had lymphadenopathy in the past without any specific cause. Physical Examination: Well-appearing middle-aged female. Vital signs stable afebrile. Pulse ox 90% on room air no signs hypoxia. H EENT exam unremarkable. Posterior pharynx normal. She does have fullness to the left side of her neck mild tenderness. Also to the face. Trachea midline. No trouble swallowing or breathing. No redness or cellulitis. Lungs clear to auscultation bilaterally. Heart regular rhythm no murmur. Abdomen soft nontender normal bowel sounds no peritoneal signs. Extremities moves all 4. Calves nontender without edema. Back nontender. Posterior neck nontender. Neurologically she is awake alert with no focal motor deficits. Test Results: CBC white count of 5. Hemoglobin 12 no bands. Chemistries unremarkable glucose 198 she is a history of diabetes. Normal gap. CT soft tissue neck with IV contrast shows lymphadenopathy also 6 mm cystic area that could be a cystic nodule versus an abscess. Radiologist termed it as an incidental finding. Emergency Department Course and Treatment: Repeat exam patient is doing well at 12:10 AM. She denies discussed all of her test results. She is comfortable not being admitted to the hospital. She will be referred to ENT. She will be started on Augmentin given her first dose in the ER. She knows return if worse. Treatment Plan: Tylenol and/or Motrin for pain. Augmentin twice daily for 10 days. Follow-up with ENT call tomorrow for an appointment this week. Return if feeling worse. Disposition: Discharge Impression: Anterior lateral left neck cervical lymphadenopathy Rule out possible cyst versus abscess This note was generated with FreeDrive dictation software. It may contain incorrect words, spelling, and punctuation that were not noted in review of the chart prior to signing ED Disposition - Plan for ED Patient: Referrals: Татьяна Sprague NP, SENIOR SALES OPERATIONS ANALYST-C [Primary Care Provider] -
--- NOTE | 2020-08-15 00:17 | ED.DEP ---
ED Disposition - Plan for ED Patient: Disposition: Home or Assisted Living Instructions: ED ADENITIS Cervical Abx Tx Prescriptions: Amox/Clavulanate Tablet [Augmentin Tablet] 875 mg PO Q12H #20 tab Prescription Printed Referrals: Татьяна Sprague NP, GRADE SCHOOL TEACHER-C [Primary Care Provider] - As soon as possible Delta García MD [STAFF PHYSICIAN] - As soon as possible Additional Instructions: Called Dr. Delta Deluna's office of ENT tomorrow see if they get you in next couple of days. Tylenol and Motrin for pain. Augmentin 1 pill twice a day as the antibiotic. Take it after breakfast and after dinner. Follow-up with your nurse practitioner if not improving or if unable to get into see the ENT here in [place] she can get you in with somebody with the [facility]. Return emergency department if feeling worse such as fever or the swelling is getting a lot worse. He has swollen lymph nodes in the left lateral and anterior aspect of your neck and possibly a small cyst or early abscess.
[2020-08-15] MEDS: Amox/Clavulanate 875 MG Tablet PO (00:21)
[2020-08-15 00:23] VITALS: BP 118/68; PULSE 72; RESP 18
== END 2020-08-15 00:31 | disposition home or self-care (01) ==
PROVIDERS: Emergency Provider Emergency Medicine; PCP Nurse Practitioner Family
DX: R59.0 Localized enlarged lymph nodes (principal); I25.10 Atherosclerotic heart disease of native coronary artery without angina pectoris; E11.9 Type 2 diabetes mellitus without complications; Z95.5 Presence of coronary angioplasty implant and graft
CPT/HCPCS: 70491; 80048; 85025; 96360; 99283; J7030

== ENCOUNTER 2020-09-11 21:05 | Emergency (ER) | payer OTHER, SELFPAY ==
[2020-09-11 21:06] VITALS: BP 143/99; PULSE 96; RESP 18; TEMP 36.6; O2SAT 97; BMI 38.2
[2020-09-11 21:08] VITALS: BP 143/99; PULSE 96; RESP 18; TEMP 36.6; O2SAT 97
[2020-09-11 21:22] VITALS: O2SAT 97
[2020-09-11 22:03] LABS: Absolute Lymphocyte Count 1.39 X10^3/uL (0.83-4.51); Absolute Neutrophil Count 2.9 X10^3/uL (2.0-7.7); Basophil# 0.02 X10^3/uL; Basophil% 0.4 % (0-1); Eosinophil# 0.08 X10^3/uL; Eosinophils% 1.7 % (0-5); Hematocrit 38.3 % (37-47); Hemoglobin 13.2 g/dL (12.0-15.0); Lymphocyte # 1.39 X10^3/ul (4.0); Lymphocyte % 29.6 % (19-41); Mean Corp Hgb Conc 34.5 g/dL (32-36); Mean Corpuscular Hgb 29.5 pg (27.0-32.0); Mean Corpuscular Volume 85.5 fL (81-99); Mean Platelet Vol. 10.2 fl (6.2-12.0); Monocyte# 0.28 X10^3/uL; NRBC Flagged by Analyzer 0 % (0-5); Neutrophil # 2.92 X10^3/uL (2.7-7.7); Neutrophil % 62.1 % (47-70); Platelet Count 166 K/mm3 (150-450); RBC Distribution Width CV 13.1 % (11.6-14.6); RBC Distribution Width SD 40.8 fl (35.1-43.9); Red Blood Count 4.48 M/mm3 (4.2-5.4); White Blood Count 4.7 K/mm3 (4.4-11.0)
--- NOTE | 2020-09-11 22:06 | RAD_ITS ---
STUDY: X-RAY CHEST REASON FOR EXAM: Female, 45 years old. Cough. COVID positive. Shortness of breath. TECHNIQUE: AP portable upright COMPARISON: 10/31/2019 CXR FINDINGS: Faint peripheral groundglass densities in the mid and lower lungs bilaterally. No apparent consolidation, pneumothorax, or pleural effusion. Heart size normal. No concerning mediastinal or hilar lesions. No acute osseous abnormality. No evidence of free air under the diaphragm. RAD/Chest 1 View (Portable) IMPRESSION: Bilateral COVID pneumonia. Electronically Signed: Jarret Covarrubias, at 22:16 EST Tel , Service support ,
--- NOTE | 2020-09-11 22:09 | ED.DCSUM_ITS ---
- ER Visit Summary Date of Service: 09/11/20 Chief Complaint: Cough, chest tightness, and fevers History of Present Illness: The patient is a 45 F who presents with cough, fever, and chest tightness that has been getting worse over the past week. Patient states she was tested positive for COVID-19 6 days ago. Patient states that today she feels worse. Patient states her temperature at home was up to 101. Patient states her pain is sharp. Patient states it is localized to the chest. Patient states it is worse with deep breathing. Patient admits to some shortness of breath due to the pain. Patient admits to a cough but denies any sputum production. Patient also admits to a headache. Physical Examination: Vital signs are stable. Patient is afebrile. Patient is in no acute distress. Oral mucosa is pink and moist. Neck is supple. Trachea is midline. There is no JVD. Heart was regular rate and rhythm. Lungs were diminished bilaterally. There is adequate respiratory effort noted. Abdomen is soft. Bowel sounds are normal. There is no tenderness. Cranial nerves II through XII are intact. There are no focal motor or sensory deficits noted. Extremities are intact. There is no calf tenderness or edema. Test Results: CBC and comprehensive metabolic profile were obtained and were essentially within normal limits. Portable chest x-ray was obtained. There is 1 view. On my interpretation, there are bilateral lower lobe infiltrates consistent with Covid pneumonia. There is no pneumothorax. Bony thorax is normal. Radiologist also interpreted the x-ray and agrees. Emergency Department Course and Treatment: Patient was given 6 puffs of albuterol inhaler. Since the patient is diabetic and may qualify for monoclonal antibody therapy, a Covid 19 rapid antigen test was obtained. This was negative. I feel this is most likely a false negative. Patient's results from 09/05/2020 were reviewed from clinic sitting. This was an RNA test and it was positive. I printed this out for the patient to take home. Patient will be referred for monoclonal antibody infusion. Patient was instructed to continue her inhaler as needed for shortness of breath. Patient was instructed to take Tylenol as needed for any fevers. Patient was instructed return if worse in any way. Patient understood and was agreeable with the plan. All questions were answered. Disposition: Discharge home Impression: 1. COVID-19 pneumonia This note was generated with Dragon dictation software. It may contain incorrect words, spelling, and punctuation that were not noted in review of the chart prior to signing ED Disposition - Plan for ED Patient: Disposition: Home or Assisted Living Diagnosis: Pneumonia due to COVID-19 virus Instructions: ED - COVID Monoclonal AB Infusion ..., Coronavirus Disease 2019 (COVID-19): Caring for Yourself or Others Referrals: Татьяна Sprague COMPUTATIONAL SCIENCES PROFESSOR, COMPUTATIONAL SCIENCES PROFESSOR-C [Primary Care Provider] - 3-5 Days
[2020-09-11 22:20] LABS: ALB/GLOB Ratio 1.1 RATIO (0.9-2.4); AST(SGOT) 69 U/L (15-37); Alanine Aminotransfer ALT/SGPT 104 U/L (13-56); Albumin, Serum 3.9 g/dL (3.2-5.0); Alkaline Phosphatase 158 U/L (45-117); Anion Gap 7 (5-15); BUN 7 mg/dL (7-18); BUN/Creat Ratio 6.7 RATIO (10-20); Calcium,Total 8.8 mg/dL (8.5-10.1); Chloride 107 mmol/L (98-107); Creatinine, Serum 1.04 mg/dL (0.55-1.02); EST Glomerular Filtration Rate 61 mL/min (>60); Est Glom Filt Rate - Afr Amer 74 mL/min (>60); Estimated Creatinine Clearance 62.76 ml/min; Globulin 3.4 g/dL (2.2-4.2); Glucose 160 mg/dL (74-106); Potassium 3.7 mmol/L (3.5-5.1); Protein, Total 7.3 g/dL (6.4-8.2); Sodium Level 140 mmol/L (136-145)
[2020-09-11 23:06] VITALS: BP 127/75; PULSE 92; RESP 19; O2SAT 94
[2020-09-11 23:33] VITALS: BP 122/82; PULSE 97; RESP 18; O2SAT 95
== END 2020-09-11 23:37 | disposition home or self-care (01) ==
PROVIDERS: Emergency Provider Emergency Medicine; PCP Nurse Practitioner Family
DX: U07.1 COVID-19 (principal); J12.89 Other viral pneumonia; E11.9 Type 2 diabetes mellitus without complications; I25.10 Atherosclerotic heart disease of native coronary artery without angina pectoris; M35.00 Sjogren syndrome, unspecified; Z95.5 Presence of coronary angioplasty implant and graft; Z90.49 Acquired absence of other specified parts of digestive tract
CPT/HCPCS: 71045; 80053; 85025; 87426; 99283; A4216

== ENCOUNTER 2020-09-13 12:12 | Outpatient (CLI) | payer OTHER, SELFPAY ==
[2020-09-13 12:31] VITALS: BP 120/73; PULSE 71; RESP 18; O2SAT 97; BMI 38.2
[2020-09-13 13:27] VITALS: BP 120/77; PULSE 70; RESP 16; TEMP 36.7; O2SAT 97
[2020-09-13 13:57] VITALS: BP 121/79; PULSE 71; RESP 16; TEMP 36.6; O2SAT 97
[2020-09-13 14:17] VITALS: BP 111/67; PULSE 66; RESP 16; TEMP 36.7; O2SAT 97
[2020-09-13 14:47] VITALS: BP 121/77; PULSE 61; RESP 16; TEMP 36.7; O2SAT 97
[2020-09-13 15:21] VITALS: BP 119/79; PULSE 60; RESP 16; TEMP 36.6; O2SAT 97
== END 2020-09-13 15:24 | disposition home or self-care (01) ==
LOC: MS2OUT 12:13
PROVIDERS: PCP Nurse Practitioner Family; Referring Provider Nurse Practitioner Acute Care; Visit Provider Nurse Practitioner Acute Care
DX: U07.1 COVID-19 (principal)
CPT/HCPCS: 96365; J7050; M0239; Q0239

== ENCOUNTER 2021-06-05 13:57 | Day surgery (SDC) | payer OTHER, SELFPAY ==
[2021-06-05 14:45] VITALS: BP 117/82; PULSE 92; RESP 16; TEMP 36.1; O2SAT 98; BMI 38.2
--- NOTE | 2021-06-05 15:35 | HP.PCM_ITS ---
HPI - General HPI Narrative ELENA KUMAR, is a 45 F who presents for left foot wound dehiscence. she reports that her foot incision broke open recently. she encountered a small amount of drainage last week but since then, there has been no drainage but the wound is not progressing. she is here today for I&D and possible closure of wound. [facility] Medical History (Updated 06/05/21 @ 15:[address] Jose Antonio West, SHELLI) Asthma Bipolar disorder CAD (coronary artery disease) Chest pain Diabetes mellitus, type II Family history of heart disease Gastroesophageal reflux disease Hypertension Hypothyroidism (acquired) Morbid obesity with BMI of 40.0-44.9, adult Non-smoker TONIO (obstructive sleep apnea) Home Medications levothyroxine 175 mcg PO DAILY 11/05/14 [History Last Taken 06/05/21 10:00] aspirin 81 mg PO DAILY@0800 #30 tab.chew 11/20/14 [Rx Last Taken 06/05/21 10:00] atorvastatin 20 mg PO DAILY@2200 #30 tab 11/20/14 [Rx Last Taken 04/16/16] clopidogrel 75 mg PO DAILY #30 tab 11/20/14 [Rx Last Taken 06/05/21 10:00] carvedilol 12.5 mg PO BID 12/16/14 [History Last Taken 06/05/21 10:00] metformin 1,000 mg PO BIDCM 07/17/15 [History Last Taken 06/05/21 10:00] cholecalciferol (vitamin D3) 1,000 unit PO DAILY 03/22/16 [History Last Taken 06/05/21 10:00] famotidine 40 mg PO QHS 04/17/16 [History Last Taken 10/30/19 21:00] sitagliptin 100 mg PO DAILY 06/05/17 [History Last Taken 06/05/21 10:00] ascorbic acid (vitamin C) 500 mg PO DAILY@0800 08/21/18 [History Last Taken 06/05/21 10:00] gabapentin 200 mg PO QHS 08/21/18 [History Last Taken Unknown] melatonin 10 mg PO QHS 08/21/18 [History Last Taken Unknown] vitamin B complex 1 ea PO DAILY 08/21/18 [History Last Taken 06/05/21 10:00] ferrous sulfate 325 mg PO QHS 10/31/19 [History Last Taken 10/30/19 21:00] pantoprazole 40 mg PO BREAKFAST 10/31/19 [History Last Taken 10/31/19 09:00] pantoprazole 40 mg PO DAILY tab 11/02/19 [Rx Last Taken 06/05/21 10:00] hydroxychloroquine 200 mg tablet 200 mg PO BID 09/12/20 [History Last Taken 06/05/21 10:00] cephalexin 1 mg PO TID 06/05/21 [History Last Taken 06/05/21 10:00] Allergy/AdvReac Type Severity Reaction Status Date / Time diphenhydramine HCl AdvReac Other Verified 06/05/21 14:36 [From Benadryl] doxycycline AdvReac Nausea/Vom/ Verified 06/05/21 14:36 Diarrhea promethazine HCl AdvReac Nausea Verified 06/05/21 14:36 [From Phenergan] sumatriptan [From Imitrex] AdvReac Other Verified 06/05/21 14:36 sumatriptan succinate AdvReac Other Verified 06/05/21 14:36 [From Imitrex] tramadol [From Ultram] AdvReac Other Verified 06/05/21 14:36 Surgical History (Updated 06/05/21 @ 14:42 by Sukhdeep Scott) H/O: hysterectomy History of cholecystectomy History of thyroidectomy Social History (Updated 09/12/20 @ 14:13 by Nasrin Antunez 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 she does not appear in any distress. vascular: DP and pt pulses are palpable to left foot. CFT is brisk. there is no erythema noted to left foot Derm: there is dehiscence of left foot surgical incision. no drainage is noted. no evidence of abscess. no fluctuance. m/s: no calf pain. xrays of left foot reviewed from main campus medical center. no acute processes. Results Lab / Micro Data Micro: Microbiology 06/05/21 14:25 Nasal Secretion SARS-CoV-2 Antigen (Rapid) - Final Assessment & Plan Assessment/Plan (1) Wound dehiscence: PLAN: patient has what appears to be a noninfected wound dehiscence. I discussed options today in my clinic and again at bedside. there is really no drainage or erythema of left foot. A wound culture has been performed in my clinic. I discussed options not limited to allowing this to heal secondarily vs applying wound vac but given the relative small size, I do think wound vac may be rather challenging. Lastly, we discussed closure of wound. patient prefers to have this closed today. I will evaluate the wound intra-op and flush the wound out. if the wound appears healthy, will close and apply aquacel to wound. she will continue with keflex. will await cultures. patient prefers to return home today. she will f/u in my clinic if wound fails to heal, referral to wound center may be necessary.
[2021-06-05] MEDS: Cefazolin 2 GM in 0.9% Normal Saline 100 ML IV (16:02)
[2021-06-05] MEDS: Lidocaine 1% (30 ml sdv) 30 ML Vial (16:11)
--- NOTE | 2021-06-05 16:57 | PCM.OPRPT ---
Problems Associated Problem List Diagnoses (1) Wound dehiscence: Report of Operation Date of Procedure: 06/05/21 Pre-Operative Diagnosis: wound dehiscence, left foot Post-Operative Diagnosis: wound dehiscence, left foot without abscess Surgery/Procedure Performed:: Incision and drainage of left foot with primary closure. Description of Surgical Findings:: no abscess of left foot. no clinical signs of infection. Surgeon: Jose Antonio West mechanic: none Type of Anesthesia: General/Regional Anesthesiologist: Michael Zambrano Specimen's removed: wound culture Drains: none Estimated Blood Loss (mL): <3 ml Description of Procedure: Patient is a pleasant 45 year old female with well controlled diabetes who underwent plantar fasciotomy April 10, 2021. she was doing very well until 2 weeks post-op and she had superficial wound dehiscence. I had been monitoring her closely and her wound was progressing nicely. She had been applying aquacel to her plantar heel and as of late April, her wound was doing very well. She went on a trip to [facility] last week at which time she noticed a small amount of drainage. she contacted my office and keflex was prescribed. she states that over the past few days, her wound subsequently opened completely up and she has been experiencing blood tinged drainage. she was seen today and we examined her and a wound culture was performed in my clinic. WE made decision to perform deep surgical I&D and we discussed options for the wound not limited to healing secondarily vs wound vac vs primary closure. this patient opted for primary closure. I discussed risks of the procedure not limited to infection, pain, swelling, bleeding, slow wound healing, wound dehiscence, deep space infection, hematoma, loss of leg. I have her on keflex so she will continue. we discussed need to stay off her foot following surgery. any walking to her foot can result in complications noted above. All risks and benefits discussed. patient has consented to proceed with surgery. Patient was transferred to the operating room and placed on the operating room table in the supine position. she was identified by name and procedure. 2 grams of IV ancef was administered and she was placed under general anesthesia. An injection along the medial ankle was administered with 4 cc of 1% lidocaine plain. the left ankle was prepped and draped in usual aseptic technique. a tourniquet was applied prior to prepping of the foot but never inflated. ATtention was directed to the open incision. All nonviable macerated tissue of the left incision was debrided. I inspected the wound dehisence. There was mild fibrotic slough and this was debrided with rongeur. Hemostasis was achieved with cautery. There was no deep dehiscence, specifically no bone or fascial exposure. No foreign body detected and no abscess. There was no drainage noted. After debridement was performed, pulse lavage was performed with 2500 -cc of saline. A deep wound culture was performed. Superficial culture was performed in my office. The incision was then repaired with 2-0 nylon. No deep closure was performed due to concern for underlying infection and the subcutaneous tissue itself was very thin and easily to tear. The wound approximated nicely without tension. A post-op dressing was applied consisting of betadine soake adaptic, aquacel, 4x4 guaze, abd, sofya and lightly applied eliu. She was transferred to pacu in stable condition. She will resume keflex and I will call in percocet for pain. She will remain nwb and will follow-up tomorrow. I plan on seeing her weekly until this wound heals. If the wound fails to heal, a referral to wound center may be necessary. Grafts/Implants Used: none Admit VTE Documentation VTE Present on Admission: No
[2021-06-05 17:01] VITALS: BP 117/82; BP 137/79; PULSE 88; RESP 16; TEMP 36.2; O2SAT 96
--- NOTE | 2021-06-05 17:10 | PCM.DC ---
Discharge Instructions Diet Discharge Diet: No restrictions Activity Discharge Activity: May Not Shower, Use Walker and Use Crutches Weight Bearing Status: No weight bearing Keep extremity elevated above heart level: Operative Extremity Dressing / Incision Call your doctor if your incision/area has: Continuous Slow Oozing, Sudden Increased Bleeding, Increased Pain/ Swelling, Increased Redness, Foul Smelling Discharge and Swelling at the incision site Call your doctor if you observe: Fever of 101 or Higher Remove Dressing in: leave in place till F/U Follow Up Care Please Follow Up With: Jose Antonio West DPM When: in one day at 9:15 am Test Results: Test results from this visit will be discussed in further detail at your follow-up appointment, if applicable. Discharge Plan Admission Attending Provider: Jose Antonio West Primary Care Provider: Татьяна Sprague NP Discharge Orders/Prescriptions Prescriptions: No Action hydroxychloroquine 200 mg tablet 200 mg PO BID RF: 0 levothyroxine 100 MCG tablet 175 mcg PO DAILY RF: 0 atorvastatin 20 MG tablet 20 mg PO DAILY@2200 Qty: 30 RF: 0 clopidogrel 75 MG tablet 75 mg PO DAILY Qty: 30 RF: 0 aspirin 81 MG tablet,chewable 81 mg PO DAILY@0800 Qty: 30 RF: 0 carvedilol 3.125 MG tablet 12.5 mg PO BID RF: 0 metformin 500 MG tablet 1,000 mg PO BIDCM RF: 0 cholecalciferol (vitamin D3) 1,000 UNIT tablet,chewable 1,000 unit PO DAILY RF: 0 famotidine 40 MG tablet 40 mg PO QHS RF: 0 sitagliptin 100 MG tablet 100 mg PO DAILY RF: 0 ascorbic acid (vitamin C) 500 MG tablet 500 mg PO DAILY@0800 RF: 0 gabapentin 100 MG capsule 200 mg PO QHS RF: 0 vitamin B complex 1 EACH capsule 1 ea PO DAILY RF: 0 melatonin 10 MG tablet 10 mg PO QHS RF: 0 ferrous sulfate 325 MG tablet 325 mg PO QHS RF: 0 pantoprazole 40 MG tablet 40 mg PO BREAKFAST RF: 0 pantoprazole 40 MG tablet 40 mg PO DAILY RF: 0 cephalexin 500 mg capsule 1 mg PO TID RF: 0
[2021-06-05 17:15] VITALS: BP 117/82; BP 130/51; PULSE 81; RESP 16; O2SAT 96
[2021-06-05] MEDS: Lactated Ringers 1,000 ML 100 ML IV (17:28)
[2021-06-05 17:30] VITALS: BP 117/82; BP 129/70; PULSE 81; RESP 16; O2SAT 96
[2021-06-05 17:57] VITALS: BP 117/82; BP 124/81; PULSE 75; RESP 16; TEMP 36.2; O2SAT 99
[2021-06-05] MEDS: oxyCODONE 5 MG Tablet PO (18:07)
[2021-06-05] MEDS: Acetaminophen 325 MG Tablet PO (18:07)
[2021-06-05 18:43] VITALS: BP 117/82; BP 119/68; PULSE 78; RESP 16; TEMP 35.9; O2SAT 99
== END 2021-06-05 18:46 | disposition home or self-care (01) ==
LOC: SDC 14:00 → AC 14:01
PROVIDERS: PCP Nurse Practitioner Family; Referring Provider Podiatrist Foot & Ankle Surgery; Visit Provider Podiatrist Foot & Ankle Surgery
PROC: (CPT 10180; principal; 2021-06-05 14:50)
DX: T81.30XA Disruption of wound, unspecified, initial encounter (principal); E03.9 Hypothyroidism, unspecified; E11.9 Type 2 diabetes mellitus without complications; E66.01 Morbid (severe) obesity due to excess calories; F31.9 Bipolar disorder, unspecified; G47.33 Obstructive sleep apnea (adult) (pediatric); I10 Essential (primary) hypertension; I25.10 Atherosclerotic heart disease of native coronary artery without angina pectoris; J45.909 Unspecified asthma, uncomplicated; K21.9 Gastro-esophageal reflux disease without esophagitis; Z68.41 Body mass index [BMI] 40.0-44.9, adult; Z79.84 Long term (current) use of oral hypoglycemic drugs; Z79.899 Other long term (current) drug therapy; Z82.49 Family history of ischemic heart disease and other diseases of the circulatory system; Z79.82 Long term (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
CPT/HCPCS: 00400; 10180; 13160; 87070; 87075; 87077; 87186; 87205; 87426; J7120; J2405

== ENCOUNTER 2022-07-18 22:14 | Emergency (ER) | payer OTHER, SELFPAY ==
[2022-07-18 22:14] VITALS: BP 142/85; PULSE 90; RESP 18; TEMP 37.4; O2SAT 95; BMI 37.4
[2022-07-18 22:17] VITALS: BP 142/85; PULSE 90; RESP 18; TEMP 37.4; O2SAT 95
[2022-07-18 22:38] LABS: Hematocrit 33.3 % (37-47); Hemoglobin 11.4 g/dL (12.0-15.0); Mean Corp Hgb Conc 34.2 g/dL (32-36); Mean Corpuscular Volume 84.7 fL (81-99); Mean Platelet Vol. 9.8 fl (6.2-12.0); POSITIVE COUNT YES; POSITIVE MORPHOLOGY YES; Platelet Count 208 K/mm3 (150-450); RBC Distribution Width CV 14.6 % (11.6-14.6); RBC Distribution Width SD 43.7 fl (35.1-43.9); Red Blood Count 3.93 M/mm3 (4.2-5.4); White Blood Count 8.6 K/mm3 (4.4-11.0)
[2022-07-18 22:40] VITALS: O2SAT 96
[2022-07-18 22:40] LABS: Mucous, Urine 0 SEEN /hpf (<or=2+); Red Blood Cells-Urine 0 SEEN /hpf (0-5); Squamous Epithelial Cells - UA 0 SEEN /hpf (5-10)
[2022-07-18 22:41] LABS: Color, Urine Yellow (Yellow); Glucose, Dipstick Normal (Normal); Ketone-Dipstick Negative (Negative); Leukocyte Esterase-Dipstick 100 /ul (Negative); Nitrite-Dipstick Negative (Negative); Occult Blood-Urine Negative /ul (Negative); Protein-Dipstick Negative (Negative); Specific Gravity, Urine 1.005 (1.002-1.030); Urine Bilirubin Dipstick Negative (Negative); Urine Clarity Clear (Clear); Urine Urobilinogen Normal (Normal)
[2022-07-18 22:44] LABS: Differential Indicated MANUAL DIFF
[2022-07-18 22:48] LABS: Bacteria RARE /hpf (None Seen); White Blood Cells 10-25 SEEN /hpf (0-5)
[2022-07-18 22:51] LABS: Prothrombin Time (Protime)PT. 12.9 SECONDS (11.7-14.9)
[2022-07-18 22:52] LABS: Partial Thromboplast Time 27.6 Seconds (24.1-36.2)
[2022-07-18 22:56] LABS: ALB/GLOB Ratio 1.1 RATIO (0.9-2.4); AST(SGOT) 18 U/L (15-37); Alanine Aminotransfer ALT/SGPT 40 U/L (13-56); Albumin, Serum 3.8 g/dL (3.2-5.0); Alkaline Phosphatase 146 U/L (45-117); Anion Gap 7 (5-15); BUN 10 mg/dL (7-18); BUN/Creat Ratio 11.3 RATIO (10-20); Calcium,Total 9.1 mg/dL (8.5-10.1); Chloride 103 mmol/L (98-107); Creatinine, Serum 0.89 mg/dL (0.55-1.02); EST Glomerular Filtration Rate 73 mL/min (>60); Est Glom Filt Rate - Afr Amer 89 mL/min (>60); Estimated Creatinine Clearance 72.58 ml/min; Globulin 3.5 g/dL (2.2-4.2); Glucose 184 mg/dL (74-106); Potassium 4.1 mmol/L (3.5-5.1); Protein, Total 7.3 g/dL (6.4-8.2); Sodium Level 137 mmol/L (136-145)
[2022-07-18] MEDS: 0.9% Normal Saline 1,000 ML 50 ML IV (22:56)
--- NOTE | 2022-07-18 23:00 | RAD_ITS ---
EXAM: XR CHEST, 2 VIEWS CLINICAL INDICATION: Neutropenic Fever TECHNIQUE: Frontal and lateral views of the chest. This report was created using [employer] report generation technology. COMPARISON: 09/11/2020 FINDINGS: LUNGS AND PLEURAL SPACES: Mild subsegmental atelectasis in the lung bases. Low lung volumes limit the exam. No consolidations. No pneumothorax. No effusion. HEART: Unremarkable. Cardiac silhouette not enlarged. MEDIASTINUM: Central airways and mediastinal contour are unremarkable. BONES/JOINTS: Unremarkable. SOFT TISSUES: Unremarkable. RAD/Chest PA and Lateral IMPRESSION: 1. Mild subsegmental atelectasis in the lung bases. 2. Low lung volumes limit the exam. No consolidations. 3. No acute cardiopulmonary abnormality. Electronically Signed: Gil Choi MD at 23:58 EDT ,
[2022-07-18 23:01] LABS: Basophil 1 % (0-1); Lymphocyte 15 % (19-41); Metamyelocyte 4 % (0-1); Monocyte 3 % (0-10); Myelocyte 1 % (0-0); Neutrophil-Band 4 % (0-5); Neutrophil-Segmented 72 % (47-70); Total Cells Counted 100 (MANUAL DIFF)
[2022-07-18 23:03] LABS: Platelet Estimate ADEQUATE (ADEQ); Red Cell Morphology NORM C+C NORMAL (NORM C&C)
[2022-07-18 23:06] LABS: Lactic Acid 1.1 mmol/L (0.4-1.9)
[2022-07-19 00:14] VITALS: BP 120/63; PULSE 88; RESP 15; TEMP 37.2; O2SAT 99
--- NOTE | 2022-07-19 00:16 | EX.ED.DYSGE1 ---
HPI History of Present Illness Chief Complaint: Fever Informant: patient Narrative Narrative: Patient is a 46-year-old female with history of Sjogren's syndrome, bipolar disorder, type 2 diabetes mellitus and nodular Hodgkin's lymphoma presenting with fever. Patient states she is had some flulike symptoms of low-grade temperatures and body aches for the past 3 days. She had chemotherapy with R-CHOP protocol 2 weeks ago. She called the on-call oncologist through [facility], Dr. Chen, because she had a temperature of 100.5 today. She was sent into the ER for evaluation of neutropenic fever. Patient denies any localizing symptoms including nausea, vomiting, abdominal pain, urinary symptoms, upper respiratory symptoms or rash. No other complaints at this time. [facility] Medical History Asthma Bipolar disorder CAD (coronary artery disease) Chest pain Diabetes mellitus, type II Family history of heart disease Gastroesophageal reflux disease Hypertension Hypothyroidism (acquired) Morbid obesity with BMI of 40.0-44.9, adult Non-Hodgkin lymphoma Non-smoker TONIO (obstructive sleep apnea) Home Medications levothyroxine 100 mcg tablet 175 mcg PO DAILY 11/05/14 [History Last Taken 06/05/21 10:00] aspirin 81 mg chewable tablet 81 mg PO DAILY@0800 ##30 11/20/14 [Rx Last Taken 06/05/21 10:00] atorvastatin 20 mg tablet 20 mg PO DAILY@2200 #30 tabs 11/20/14 [Rx Last Taken 04/16/16] clopidogrel 75 mg tablet 75 mg PO DAILY #30 tabs 11/20/14 [Rx Last Taken 06/05/21 10:00] carvedilol 3.125 mg tablet 12.5 mg PO BID 12/16/14 [History Last Taken 06/05/21 10:00] metformin 500 mg tablet 1,000 mg PO BIDCM 07/17/15 [History Last Taken 06/05/21 10:00] cholecalciferol (vitamin D3) 25 mcg (1,000 unit) chewable tablet 1,000 unit PO DAILY 03/22/16 [History Last Taken 06/05/21 10:00] famotidine 40 mg tablet 40 mg PO QHS 04/17/16 [History Last Taken 10/30/19 21:00] sitagliptin phosphate 100 mg tablet 100 mg PO DAILY 06/05/17 [History Last Taken 06/05/21 10:00] ascorbic acid (vitamin C) 500 mg tablet 500 mg PO DAILY@0800 08/21/18 [History Last Taken 06/05/21 10:00] gabapentin 100 mg capsule 200 mg PO QHS 08/21/18 [History Last Taken Unknown] melatonin 10 mg sublingual tablet 10 mg PO QHS 08/21/18 [History Last Taken Unknown] vitamin B complex 1 ea PO DAILY 08/21/18 [History Last Taken 06/05/21 10:00] ferrous sulfate 325 mg (65 mg iron) tablet 325 mg PO QHS 10/31/19 [History Last Taken 10/30/19 21:00] pantoprazole 40 mg tablet,delayed release 40 mg PO BREAKFAST 10/31/19 [History Last Taken 10/31/19 09:00] pantoprazole 40 mg tablet,delayed release 40 mg PO DAILY 11/02/19 [Rx Last Taken 06/05/21 10:00] hydroxychloroquine 200 mg tablet 200 mg PO BID 09/12/20 [History Last Taken 06/05/21 10:00] cephalexin 500 mg capsule 1 mg PO TID 06/05/21 [History Last Taken 06/05/21 10:00] Allergy/AdvReac Type Severity Reaction Status Date / Time diphenhydramine HCl AdvReac Other Verified 07/18/22 22:17 [From Benadryl] doxycycline AdvReac Nausea/Vom/ Verified 07/18/22 22:17 Diarrhea promethazine HCl AdvReac Nausea Verified 07/18/22 22:17 [From Phenergan] sumatriptan [From Imitrex] AdvReac Other Verified 07/18/22 22:17 sumatriptan succinate AdvReac Other Verified 07/18/22 22:17 [From Imitrex] tramadol [From Ultram] AdvReac Other Verified 07/18/22 22:17 Surgical History H/O: hysterectomy History of cholecystectomy History of thyroidectomy Social History Smoking Status: Never smoker ROS ROS ED Constitutional Constitutional ED: Reports chills and fever(s) Eyes Eyes: Denies change in vision ENT ENT ED: Denies ear pain, rhinorrhea or sore throat Cardiovascular Cardiovascular: Denies chest pain or palpitations Respiratory/Chest Respiratory/Chest: Denies cough or dyspnea Gastrointestinal Gastrointestinal: Denies abdominal pain, diarrhea, nausea or vomiting Genitourinary Genitourinary ED: Denies dysuria, hematuria or urinary frequency Musculoskeletal Musculoskeletal: Reports myalgias; Denies arthralgias or back pain Integumentary Denies rash Neurologic Neurologic: Denies headache(s) or weakness Psychiatric Psychiatric: Denies anxiety Hematologic/Lymphatic Hematologic/Lymphatic: Denies easy bleeding or easy bruising EXAM Physical Exam Const Vital Signs: 07/18/22 22:14 07/18/22 22:17 07/18/22 22:40 Temperature 99.4 F H 99.4 F H Temperature Source Oral Oral Pulse Rate 90 90 Respiratory Rate 18 18 Respiratory Effort Respiratory Pattern Blood Pressure 142/85 H 142/85 H Blood Pressure Mean 104 104 Pulse Ox 95 95 96 Oxygen Delivery Method Room Air Room Air Room Air 07/18/22 22:40 Temperature Temperature Source Pulse Rate Respiratory Rate Respiratory Effort Normal Non-Labored Respiratory Pattern Normal Blood Pressure Blood Pressure Mean Pulse Ox Oxygen Delivery Method Positive well nourished and well developed General Appearance ED: well developed and NAD HEENT Reports TM's clear and moist mucous membranes Tympanic Membrane ED: Yes TM's clear Eyes PERRL and EOMs intact bilaterally Eyes Narrative: Bilateral conjunctival injection Neck supple Neck Narrative: No nuchal rigidity Chest Wall inspection of chest normal and palpation of chest normal Resp normal respiratory effort and clear to auscultation bilaterally Cardio regular rate, regular rhythm and no murmurs GI normal to inspection, nondistended, normoactive bowel sounds and non-tender Extremity normal to inspection General Extremety ED: Negative for edema or tenderness General Extremity: Negative for edema Neuro oriented x3 and no sensory deficits noted Motor Exam: strength 5/5 throughout; Negative for general weakness Psych mental status grossly normal Skin no rashes or lesions noted MDM MDM MDM Narrative Medical decision making narrative: Patient is evaluated for fever while undergoing chemotherapy. Concern for neutropenic fever. Neutropenic fever protocol obtained and patient is empirically started on cefepime. Work-up is largely normal. She is not neutropenic today and she has a white blood cell count of 8.6 with a normal absolute neutrophil count. CMP and coags unremarkable. Lactate normal at 1.1. Urinalysis shows 10-25 white blood cells with rare bacteria and no nitrites. Culture of urine and blood are pending. Patient does not have any urinary symptoms so will defer treatment at this time after discussion with oncology on-call, Dr. Santos. Patient overall is quite well-appearing. She remains hemodynamically stable and afebrile in the emergency room. Is given strict return precautions. Will follow up with oncology. Discharged home in stable condition. Lab Data Attestation: I reviewed the patient's lab results. Labs: Laboratory Results - last 24 hr 07/18/22 07/18/22 07/18/22 22:28 22:28 22:28 WBC 8.6 RBC 3.93 L Hgb 11.4 L Hct 33.3 L MCV 84.7 MCH 29.0 MCHC 34.2 RDW Std Deviation 43.7 RDW Coeff of Noman 14.6 Plt Count 208 MPV 9.8 Neut % (Auto) Not Reportable Absolute Neuts (auto) 7.0 Absolute Lymphs (auto) 1.30 Total Counted 100 Neutrophils % (Manual) 72 H Band Neutrophils % 4 Lymphocytes % (Manual) 15 L Monocytes % (Manual) 3 Basophils % (Manual) 1 Metamyelocytes % 4 H Myelocytes % 1 H Diff Path Review May foll Platelet Estimate ADEQUATE RBC Morphology NORM C+C PT 12.9 INR 1.0 APTT 27.6 Sodium 137 Potassium 4.1 Chloride 103 Carbon Dioxide 27.0 Anion Gap 7 BUN 10 Creatinine 0.89 Estim Creat Clear Calc 72.58 Est GFR (MDRD) Af Amer 89 Est GFR (MDRD) Non-Af 73 BUN/Creatinine Ratio 11.3 Glucose 184 H Lactic Acid Calcium 9.1 Total Bilirubin 0.60 AST 18 ALT 40 Alkaline Phosphatase 146 H Total Protein 7.3 Albumin 3.8 Globulin 3.5 Albumin/Globulin Ratio 1.1 Urine Color Urine Clarity Urine pH Ur Specific [place] Urine Protein Urine Glucose (UA) Urine Ketones Urine Occult Blood Urine Nitrite Urine Bilirubin Urine Urobilinogen Ur Leukocyte Esterase Urine RBC Urine WBC Ur Squamous Epith Cells Urine Bacteria Urine Mucus 07/18/22 07/18/22 22:28 22:35 WBC RBC Hgb Hct MCV MCH MCHC RDW Std Deviation RDW Coeff of Noman Plt Count MPV Neut % (Auto) Absolute Neuts (auto) Absolute Lymphs (auto) Total Counted Neutrophils % (Manual) Band Neutrophils % Lymphocytes % (Manual) Monocytes % (Manual) Basophils % (Manual) Metamyelocytes % Myelocytes % Diff Path Review Platelet Estimate RBC Morphology PT INR APTT Sodium Potassium Chloride Carbon Dioxide Anion Gap BUN Creatinine Estim Creat Clear Calc Est GFR (MDRD) Af Amer Est GFR (MDRD) Non-Af BUN/Creatinine Ratio Glucose Lactic Acid 1.1 Calcium Total Bilirubin AST ALT Alkaline Phosphatase Total Protein Albumin Globulin Albumin/Globulin Ratio Urine Color Yellow Urine Clarity Clear Urine pH 7.0 Ur Specific [place] 1.005 Urine Protein Negative Urine Glucose (UA) Normal Urine Ketones Negative Urine Occult Blood Negative Urine Nitrite Negative Urine Bilirubin Negative Urine Urobilinogen Normal Ur Leukocyte Esterase 100 H Urine RBC 0 SEEN Urine WBC 10-25 SEEN Ur Squamous Epith Cells 0 SEEN Urine Bacteria RARE Urine Mucus 0 SEEN Radiography Diagnostic Testing: Clinical Impression(s) from Imaging Studies Chest X-Ray 07/18/22 23:00 IMPRESSION: 1. Mild subsegmental atelectasis in the lung bases. 2. Low lung volumes limit the exam. No consolidations. 3. No acute cardiopulmonary abnormality. Electronically Signed: Gil Choi MD at 23:58 EDT , Discharge Plan Triage Chief Complaint: Fever ED Provider: Anne Mckeon Dx/Rx/DC Orders Clinical Impression: Fever, unknown origin, Nodular sclerosing Hodgkin's lymphoma Instructions: ED FUO Adult Prescriptions: No Action hydroxychloroquine 200 mg tablet 200 mg PO BID levothyroxine 100 MCG tablet 175 mcg PO DAILY Label Comments: thyroid atorvastatin 20 MG tablet 20 mg PO DAILY@2200 Qty: 30 0RF Label Comments: cholesterol clopidogrel 75 MG tablet 75 mg PO DAILY Qty: 30 0RF Label Comments: blood thinner aspirin 81 MG tablet,chewable 81 mg PO DAILY@0800 Qty: 30 0RF Label Comments: HEART HEALTH carvedilol 3.125 MG tablet 12.5 mg PO BID Label Comments: blood pressure/heart metformin 500 MG tablet 1,000 mg PO BIDCM Label Comments: DIABETES cholecalciferol (vitamin D3) 1,000 UNIT tablet,chewable 1,000 unit PO DAILY Label Comments: supplement famotidine 40 MG tablet 40 mg PO QHS Label Comments: GERD sitagliptin phosphate 100 MG tablet 100 mg PO DAILY Label Comments: TAKE 1 TABLET EVERY DAY ascorbic acid (vitamin C) 500 MG tablet 500 mg PO DAILY@0800 gabapentin 100 MG capsule 200 mg PO QHS vitamin B complex 1 EACH capsule 1 ea PO DAILY melatonin 10 MG tablet 10 mg PO QHS ferrous sulfate 325 MG tablet 325 mg PO QHS pantoprazole 40 MG tablet 40 mg PO BREAKFAST pantoprazole 40 MG tablet 40 mg PO DAILY 0RF cephalexin 500 mg capsule 1 mg PO TID Label Comments: TAKE 1 CAPSULE BY MOUTH TWICE DAILY FOR 5 DAYS Primary Care Provider: Татьяна Sprague NP Referrals: Татьяна Sprague NP, [facility] [Primary Care Provider] - Activity Restrictions/Additional Instructions: Please follow-up with your oncologist as scheduled next week. Return with any worsening symptoms. No signs of neutropenia today and no obvious source of your fever. Disposition Disposition: Home, Self Care
[2022-07-20 15:42] LABS: Pathologist Review Reviewed
--- NOTE | 2022-07-21 09:27 | ED.RN ---
CALLED IN PRESCRIPTION FOR LEVAQUIN [facility], CALLED AND NOTIFIED PT
== END 2022-07-19 00:27 | disposition home or self-care (01) ==
PROVIDERS: Emergency Provider Emergency Medicine; PCP Nurse Practitioner Family; Visit Provider Emergency Medicine
DX: R50.9 Fever, unspecified (principal); C81.10 Nodular sclerosis Hodgkin lymphoma, unspecified site; F31.9 Bipolar disorder, unspecified; E11.9 Type 2 diabetes mellitus without complications; I25.10 Atherosclerotic heart disease of native coronary artery without angina pectoris; G47.33 Obstructive sleep apnea (adult) (pediatric)
CPT/HCPCS: 36415; 71046; 80053; 81001; 83605; 85025; 85610; 85730; 87040; 87077; 87086; 87088; 87186; 87428; 87807; 96365; 99284; J7030

== ENCOUNTER 2022-09-15 19:57 | Emergency (ER) | payer OTHER, SELFPAY ==
[2022-09-15 19:57] VITALS: BP 137/76; PULSE 106; RESP 18; TEMP 37.4; O2SAT 97; BMI 35.4
--- NOTE | 2022-09-15 20:51 | EDS_ITS ---
HPI History of Present Illness Chief Complaint: Fever Informant: patient Onset/Context/Timing Onset: Today Quality: 101.6 Current Severity: Mild Maximum Severity: Moderate Worsened by: nothing Relieved by: nothing, hasn't taken any fever reducing medications Associated Symptoms Associated Symptoms ED: cough Narrative Narrative: Patient symptomatic with COVID for about 5 days now, she started having fevers today. Other symptoms include myalgias, malaise, sore throat, cough, headache. No dyspnea or GI symptoms. Patient is here because of risk of neutropenic fever since she is on chemotherapy for Hodgkin's lymphoma. Sees [facility] for oncology. [facility] Medical History (Updated 09/15/22 @ 23:[address] Sly Dutta MD) Asthma Bipolar disorder CAD (coronary artery disease) Chest pain Diabetes mellitus, type II Family history of heart disease Gastroesophageal reflux disease Hodgkin lymphoma Hypertension Hypothyroidism (acquired) Morbid obesity with BMI of 40.0-44.9, adult Non-smoker TONIO (obstructive sleep apnea) Home Medications levothyroxine 100 mcg tablet 175 mcg PO DAILY 11/05/14 [History Last Taken 06/05/21 10:00] aspirin 81 mg chewable tablet 81 mg PO DAILY@0800 ##30 11/20/14 [Rx Last Taken 06/05/21 10:00] atorvastatin 20 mg tablet 20 mg PO DAILY@2200 #30 tabs 11/20/14 [Rx Last Taken 04/16/16] clopidogrel 75 mg tablet 75 mg PO DAILY #30 tabs 11/20/14 [Rx Last Taken 06/05/21 10:00] carvedilol 3.125 mg tablet 12.5 mg PO BID 12/16/14 [History Last Taken 06/05/21 10:00] metformin 500 mg tablet 1,000 mg PO BIDCM 07/17/15 [History Last Taken 06/05/21 10:00] cholecalciferol (vitamin D3) 25 mcg (1,000 unit) chewable tablet 1,000 unit PO DAILY 03/22/16 [History Last Taken 06/05/21 10:00] famotidine 40 mg tablet 40 mg PO QHS 04/17/16 [History Last Taken 10/30/19 21:00] sitagliptin phosphate 100 mg tablet 100 mg PO DAILY 06/05/17 [History Last Taken 06/05/21 10:00] ascorbic acid (vitamin C) 500 mg tablet 500 mg PO DAILY@0800 08/21/18 [History Last Taken 06/05/21 10:00] gabapentin 100 mg capsule 200 mg PO QHS 08/21/18 [History Last Taken Unknown] melatonin 10 mg sublingual tablet 10 mg PO QHS 08/21/18 [History Last Taken Unknown] vitamin B complex 1 ea PO DAILY 08/21/18 [History Last Taken 06/05/21 10:00] ferrous sulfate 325 mg (65 mg iron) tablet 325 mg PO QHS 10/31/19 [History Last Taken 10/30/19 21:00] pantoprazole 40 mg tablet,delayed release 40 mg PO BREAKFAST 10/31/19 [History Last Taken 10/31/19 09:00] pantoprazole 40 mg tablet,delayed release 40 mg PO DAILY 11/02/19 [Rx Last Taken 06/05/21 10:00] hydroxychloroquine 200 mg tablet 200 mg PO BID 09/12/20 [History Last Taken 06/05/21 10:00] cephalexin 500 mg capsule 1 mg PO TID 06/05/21 [History Last Taken 06/05/21 10:00] Allergy/AdvReac Type Severity Reaction Status Date / Time diphenhydramine HCl AdvReac Other Verified 09/15/22 20:00 [From Benadryl] doxycycline AdvReac Nausea/Vom/ Verified 09/15/22 20:00 Diarrhea promethazine HCl AdvReac Nausea Verified 09/15/22 20:00 [From Phenergan] sumatriptan [From Imitrex] AdvReac Other Verified 09/15/22 20:00 sumatriptan succinate AdvReac Other Verified 09/15/22 20:00 [From Imitrex] tramadol [From Ultram] AdvReac Other Verified 09/15/22 20:00 Surgical History H/O: hysterectomy History of cholecystectomy History of thyroidectomy Social History Smoking Status: Never smoker ROS ROS ED Constitutional Constitutional ED: Reports body ache(s), chills, fatigue, fever(s), headache(s) and malaise Eyes Eyes: Denies change in vision or diplopia ENT ENT ED: Reports sore throat; Denies rhinorrhea Cardiovascular Cardiovascular: Denies chest pain or palpitations Respiratory/Chest Respiratory/Chest: Reports cough; Denies dyspnea or dyspnea on exertion Gastrointestinal Gastrointestinal: Denies abdominal pain, diarrhea, nausea or vomiting Genitourinary Genitourinary ED: Denies dysuria or hematuria Musculoskeletal Musculoskeletal: Denies back pain or neck pain Integumentary Denies abscess or rash Neurologic Neurologic: Reports headache(s); Denies paresthesias or weakness Psychiatric Psychiatric: Denies anxiety or suicidal thoughts EXAM Physical Exam Const Vital Signs: 09/15/22 19:57 Temperature 99.4 F H Temperature Source Oral Pulse Rate 106 H Respiratory Rate 18 Blood Pressure 137/76 H Blood Pressure Mean 96 Pulse Ox 97 Oxygen Delivery Method Room Air Positive well nourished and well developed Constitutional Narrative: Well-appearing, no distress General Appearance ED: well developed and NAD HEENT Reports moist mucous membranes normocephalic and atraumatic Eyes PERRL and EOMs intact bilaterally Neck full ROM, no lymphadenopathy and supple Resp normal respiratory effort and clear to auscultation bilaterally Effort and Inspection: able to speak in complete sentences Cardio regular rate, regular rhythm and no murmurs Rate: Negative for tachycardic GI non-tender and non-distended Auscultation: normoactive bowel sounds Palpation: soft Back/Spine no CVA tenderness General Back: other FROM Extremity normal to inspection and no calf tenderness General Extremety ED: Negative for edema, pulses abnormal or tenderness General Extremity: Negative for edema or pulses abnormal Neuro oriented x3, CN's II-XII intact bilaterally and no sensory deficits noted Sensorium / Orientation: awake and alert Motor Exam: strength 5/5 throughout Skin no rashes or lesions noted and no wounds MDM MDM MDM Narrative Medical decision making narrative: Patient is leukopenic, but she is not technically neutropenic, although she is close. She has multiple lines of immature cells, however she does get Neulasta each time she gets chemotherapy and the last treatment was 9 days ago. Her ANC is 1200. Additionally, COVID does tend to cause leukopenia. I discussed all this with Dr. Santos on-call for [facility] oncology, he agrees that since the patient does not have any symptoms or findings of an infection in addition to or other than COVID, it would be reasonable to allow her to go home since blood cultures have been sent, without antibiotics and to follow-up with her oncologist after the holiday weekend. She is comfortable with that plan we discussed reasons to return such as new symptoms of infection such as dysuria, dyspnea, rash, etc. Lab Data Attestation: I reviewed the patient's lab results. Labs: Laboratory Results - last 24 hr 09/15/22 21:04 WBC 2.5 L RBC 2.97 L Hgb 9.1 L Hct 26.2 L MCV 88.2 MCH 30.6 MCHC 34.7 RDW Std Deviation 55.5 H RDW Coeff of Nmoan 18.1 H Plt Count 139 L MPV 9.8 Neut % (Auto) Not Reportable Absolute Neuts (auto) 1.2 L Absolute Lymphs (auto) 0.40 L Total Counted 100 Neutrophils % (Manual) 32 L Band Neutrophils % 17 H Lymphocytes % (Manual) 16 L Monocytes % (Manual) 18 H Eosinophils % (Manual) 3 Metamyelocytes % 3 H Myelocytes % 11 H Differential Comment Diff Path Review May foll Platelet Estimate ADEQUATE RBC Morphology NORM C+C Discharge Plan Triage Chief Complaint: Fever ED Provider: Sly Dutta Dx/Rx/DC Orders Clinical Impression: Leukopenia, COVID-19, Acquired immunocompromised state, Hodgkin lymphoma Instructions: Coronavirus Disease 2019 (COVID-19): Caring for Yourself or Others Prescriptions: No Action hydroxychloroquine 200 mg tablet 200 mg PO BID levothyroxine 100 MCG tablet 175 mcg PO DAILY Label Comments: thyroid atorvastatin 20 MG tablet 20 mg PO DAILY@2200 Qty: 30 0RF Label Comments: cholesterol clopidogrel 75 MG tablet 75 mg PO DAILY Qty: 30 0RF Label Comments: blood thinner aspirin 81 MG tablet,chewable 81 mg PO DAILY@0800 Qty: 30 0RF Label Comments: HEART HEALTH carvedilol 3.125 MG tablet 12.5 mg PO BID Label Comments: blood pressure/heart metformin 500 MG tablet 1,000 mg PO BIDCM Label Comments: DIABETES cholecalciferol (vitamin D3) 1,000 UNIT tablet,chewable 1,000 unit PO DAILY Label Comments: supplement famotidine 40 MG tablet 40 mg PO QHS Label Comments: GERD sitagliptin phosphate 100 MG tablet 100 mg PO DAILY Label Comments: TAKE 1 TABLET EVERY DAY ascorbic acid (vitamin C) 500 MG tablet 500 mg PO DAILY@0800 gabapentin 100 MG capsule 200 mg PO QHS vitamin B complex 1 EACH capsule 1 ea PO DAILY melatonin 10 MG tablet 10 mg PO QHS ferrous sulfate 325 MG tablet 325 mg PO QHS pantoprazole 40 MG tablet 40 mg PO BREAKFAST pantoprazole 40 MG tablet 40 mg PO DAILY 0RF cephalexin 500 mg capsule 1 mg PO TID Label Comments: TAKE 1 CAPSULE BY MOUTH TWICE DAILY FOR 5 DAYS Primary Care Provider: Татьяна Sprague NP Referrals: Doctor,Your [Non-Staff] - (Call on Saturday for further instructions, follow-up, and for blood culture results review if possible) Disposition Disposition: Home, Self Care
[2022-09-15] MEDS: Acetaminophen 325 MG Tablet 650 MG PO (21:02)
[2022-09-15 21:12] LABS: Hematocrit 26.2 % (37-47); Hemoglobin 9.1 g/dL (12.0-15.0); Mean Corp Hgb Conc 34.7 g/dL (32-36); Mean Corpuscular Hgb 30.6 pg (27.0-32.0); Mean Corpuscular Volume 88.2 fL (81-99); Mean Platelet Vol. 9.8 fl (6.2-12.0); POSITIVE COUNT YES; POSITIVE DIFFERENTIAL YES; POSITIVE MORPHOLOGY YES; Platelet Count 139 K/mm3 (150-450); RBC Distribution Width CV 18.1 % (11.6-14.6); RBC Distribution Width SD 55.5 fl (35.1-43.9); Red Blood Count 2.97 M/mm3 (4.2-5.4); White Blood Count 2.5 K/mm3 (4.4-11.0)
[2022-09-15 21:17] LABS: Differential Indicated MANUAL DIFF
[2022-09-15 21:51] LABS: Eosinophil 3 % (0-5); Lymphocyte 16 % (19-41); Metamyelocyte 3 % (0-1); Monocyte 18 % (0-10); Myelocyte 11 % (0-0); Neutrophil-Band 17 % (0-5); Neutrophil-Segmented 32 % (47-70); Platelet Estimate ADEQUATE (ADEQ); Red Cell Morphology NORM C+C NORMAL (NORM C&C); Total Cells Counted 100 (MANUAL DIFF)
[2022-09-15 21:52] LABS: Absolute Neutrophil Count 1.2 X10^3/uL (2.0-7.7)
[2022-09-18 14:00] LABS: Pathologist Review Reviewed
== END 2022-09-15 23:32 | disposition home or self-care (01) ==
PROVIDERS: Emergency Provider Emergency Medicine; PCP Nurse Practitioner Family; Visit Provider Emergency Medicine
DX: U07.1 COVID-19 (principal); C81.90 Hodgkin lymphoma, unspecified, unspecified site; D84.9 Immunodeficiency, unspecified; F31.9 Bipolar disorder, unspecified; E11.9 Type 2 diabetes mellitus without complications; I25.10 Atherosclerotic heart disease of native coronary artery without angina pectoris; Z82.49 Family history of ischemic heart disease and other diseases of the circulatory system; K21.9 Gastro-esophageal reflux disease without esophagitis; E03.9 Hypothyroidism, unspecified; G47.33 Obstructive sleep apnea (adult) (pediatric)
CPT/HCPCS: 85025; 87040; 99282

== ENCOUNTER 2023-12-31 08:00 | Outpatient (RCR) | payer OTHER, SELFPAY ==
--- NOTE | 2023-12-31 09:05 | BH.SGPN.GN ---
Behaviors/Verbalizations/Mental Status: [] Eye contact is poor. Motor activity is appropriate. Appearance is casual. Speech is Appropriate. Mood is depressed. Affect is shira. Thoughts are linear and logical. No evidence of psychosis. Reviewed daily check in sheet and pt reports 3/5 for suicidal thoughts, and 0/5 for intent. Completed [facility] Suicide Screening prior to group this AM. Client Response/Progress/Benefit: [] Pt participated when prompted. Attentive. Daily symptom tracker notes 4/5 for depression and 3/5 for anxiety and irritability. This was pt's first day in IOP and she briefly introduced herself to the group. States that she entered IOP to improve mental stablity. Shared recent struggles with depression, anxiety and stress. She is not elaborate much further. No progress noted as this was her first day in IOP. Group provided support and offered feedback for her first day in IOP which was beneficial. Will continue in IOP to maintain safety, prevent decompensation, and increase healthy coping skills. Narrative Note: []
--- NOTE | 2023-12-31 11:15 | BH.SGPN.GN ---
Behaviors/Verbalizations/Mental Status: []Pt alert and oriented, casually dressed and groomed. Eye contact good. Motor activity appropriate. Speech within normal limits. Affect congruent, mood depressed and anxious. Thoughts linear, logical, no signs of hallucinations or delusions. Client Response/Progress/Benefit: [] Pt engaged participant AEB listening attentively to others and providing input throughout group. Pt worked within their small group to identify strategies to manage inappropriate guilt. Identified a personal example of inappropriate guilt as feeling guilty for having mental health issues. Insight this cues a fear of being less than and fear of hurting others. Pt wants to work on combatting inappropriate guilt by challenging distortions, practicing acceptance, and focusing on self-compassion. Pt seemed to benefit from learning about strategies to manage appropriate and inappropriate guilt. Pt will continue IOP tx to promote mood stability, reinforce healthy coping skills, and prevent decompensation. Narrative Note: []
--- NOTE | 2023-12-31 15:43 | BH.MTP ---
[facility] Treatment Plan Patient Information Program Physician:: Dr. Melissa Primary Therapist:: Nelia Pal, [facility] Psychiatric Diagnoses Psychiatric Diagnoses:: 1. Bipolar 2 disorder (currently depressed) 2. Generalized anxiety disorder 3. PTSD 4. Chronic insomnia, obstructive sleep apnea, history of Hodgkin's, hypothyroid 5. Health concerns and work issues Diagnosis Code(s):: F31.9 Estimated LOS Estimated LOS (in weeks):: 6 Problem/Goal #1 Problem/Goal #1 Stated Goal:: Client will increase mood stability and decrease depressive symptoms, hopelessness, and suicidal ideation due to Bipolar II through Intensive Outpatient Program. Description of Barriers: Pt has hard time talking about her mental health due to stigma, leads her to hide how she is feeling to others. Other potential barriers to treatment include: negative thoughts, distortions, apathy, and low motivation. Functional Impact: Patient is a 48-year-old female with a history of bipolar 2 disorder and PTSD and anxiety who was referred by her outpatient provider for worsening symptoms of depression, anxiety and fleeting suicidal ideation in the past 6 months. 1 month ago the patient's asked her to hide her pills because she wanted to prevent herself from overdosing but she states that she would never kill herself because of her and children. She endorses sadness, crying spells, low motivation, hopelessness, worthlessness, guilt, isolation when not at work, anhedonia, disruption of sleep, low energy, fatigue, decreased concentration, short-term memory issues, guilt, passive thoughts of , passive suicidal ideation several times a week which last several hours. She states that 90% of the time she is depressed and only 10% as she hypomanic and she thinks possibly she was hypomanic for a few hours a few weeks ago. She is a worrier by nature and ruminates negatively. She gets panic attacks 2-4 times a week. Objectives Objective #1: Stated Objective: Client will learn and utilize 2-3 healthy coping strategies to manage depressive symptoms. Interventions: Therapist and group sessions will utilize CBT techniques to assist client with understanding the connection between thoughts, feelings and behaviors. Education will be provided on behavioral activation. Therapist will assist client in learning internal coping strategies to manage depressive symptoms, along with helping client identify triggers. Discharge Criteria: Client will have achieved this goal when can verbalize and has practiced at least 2 healthy coping strategies that successfully manage depressive symptoms. Target Date: 02/11/24 Review Date: 01/28/24 Objective #2: Stated Objective: Client will identify and replace 2-3 negative thinking patterns that reinforce feelings of hopelessness. Interventions: Group and individual sessions will assist the client in identifying, challenging, and replacing dysfunctional thoughts with positive self-enhancing thoughts. Discharge Criteria: Client will have achieved this goal when can identify at least 2 negative thinking patterns, replace thoughts with rational thoughts, and combat suicidal ideation. Target Date: 02/11/24 Review Date: 01/28/24 Problem/Goal #2 Problem/Goal #2 Stated Goal:: Stabilize anxiety level while increasing ability to function on daily basis. Description of Barriers: Pt has hard time talking about her mental health due to stigma, leads her to hide how she is feeling to others. Other potential barriers to treatment include: negative thoughts, distortions, apathy, and low motivation. Functional Impact: Patient is a 48-year-old female with a history of bipolar 2 disorder and PTSD and anxiety who was referred by her outpatient provider for worsening symptoms of depression, anxiety and fleeting suicidal ideation in the past 6 months. 1 month ago the patient's asked her to hide her pills because she wanted to prevent herself from overdosing but she states that she would never kill herself because of her and children. She endorses sadness, crying spells, low motivation, hopelessness, worthlessness, guilt, isolation when not at work, anhedonia, disruption of sleep, low energy, fatigue, decreased concentration, short-term memory issues, guilt, passive thoughts of , passive suicidal ideation several times a week which last several hours. She states that 90% of the time she is depressed and only 10% as she hypomanic and she thinks possibly she was hypomanic for a few hours a few weeks ago. She is a worrier by nature and ruminates negatively. She gets panic attacks 2-4 times a week. Objectives Objective #1: Stated Objective: Client will identify 2-3 anxiety triggers and 2 coping skills to use when feeling anxious. Interventions: Therapist will assist client in exploring what triggers anxiety and teach client coping strategies to effectively manage anxiety symptoms. Discharge Criteria: Client will have met this goal when can identify at least 2 triggers to anxiety and verbalize two healthy ways to cope with feelings of anxiety. Target Date: 02/11/24 Review Date: 01/28/24 Objective #2: Stated Objective: Client will learn and implement 2-3 calming skills to reduce overall anxiety and manage anxiety symptoms. Interventions: Therapist and group sessions will help client identify physiological warning signs of anxiety, increase awareness of thoughts that increase anxiety, and identify behaviors that reinforce anxious symptoms. Group and individual counseling will teach client calming skills to help manage anxious symptoms. Discharge Criteria: Client will have achieved this goal when can verbalize at least 2 calming skills and reports skills successfully help reduce anxious symptoms. Target Date: 02/11/24 Review Date: 01/28/24
--- NOTE | 2024-01-01 08:15 | BH.NA_ITS ---
Physical Data Vital Signs Pulse Rate: 76 Blood Pressure: 150/86 Height/Weight Height: 1.65 m Weight:: 99.79 kg Weight in Pounds: 220.0 lbs Current Medication Compliance Medication Compliance Do you take your medication as prescribed?: Yes Nutritional History Appetite Nutritional Instructions: Describe your appetite:: Good Additional nutritional information:: Client denies recent change in appetite or weight. Functional Assessment Sleep Pattern Describe any problems with sleeping: Client states she is sleeping between 3-6 hours per night. Sensory/Communication Assess Communication Problems Do you have difficulty understanding what people are saying?: No Medical Problems/History Cardiac Conditions Cardiovascular: Coronary artery disease, Hypertension and Hyperlipidemia Respiratory Conditions Respiratory: Asthma and Other (See comments) (TONIO- started using pap consistently about 2 months ago) Genitourinary Conditions Genitourinary: Other (See comments) (history of bladder sling) Hematologic Conditions Hematologic: Other (See comments) (history of hodgkins lymphoma- has been in remission since September 2022) Metabolic Conditions Metabolic: Diabetes (type 2, diagnosed about 8 years ago, managed on Metformin) and Hypothyroidism (due to thyroidectomy) Gastrointestinal Conditions Gastrointestinal: Nausea and Other (See comments) (GERD) Musculoskeletal Conditions Musculoskeletal: Other (See comments) (history of carpal tunnel) Cancer History Type of Cancer:: Lymphoma-Hodgkins Comments:: was diagnosed with stage 0 cervical cancer in 2019 and had a hysterectomy Additional History Additional comments:: possibly has Sjogrens- states one solderer assembly repair thinks she has it and one thinks maybe not so is still in the process of confirming diagnosis Surgical History Surgical History Have you had any surgeries? If so, list type and date:: Yes (carpal tunnel, cardiac stents x2, mirna, thyroidectomy, hyster, bladder) Substance Abuse Substance Abuse Please describe substance abuse in the last 30 days:: Client denies alcohol, tobacco or substance use. Client states she drinks 1 cup of coffee per day. Mental Status Summary Mental Status Significant Findings/Observations on Appearance and Mood:: Client is alert and oriented x 4. Client is casually groomed with good hygiene. Client is cooperative with assessment. Client makes good eye contact. Client's voice has normal rate and volume. Client has a slightly restricted affect. Client makes logical associations and has normal processing. Client denies delusions/hallucinations. Client reports some fleeting SI at times, but denies plan or intent. Suicide Assessment Suicidal Ideation Are you currently or have you been suicidal in the past?: Yes Suicidal Intentional Rating Scale (SIRS): Suicidal thoughts (past) (fleeting, none presently, denies plan/intent) Physician Notification Past Psychiatric History MH Treatment Hx Past Psychiatric Medications:: Effexor (increased SI, will not take again), [place] (was on for several years but got toxicity), Abilify, Latuda, Elavil, Zoloft, Paxil Age of first mental health symptoms: Client states she was diagnosed with bipolar 2 about 13 years ago, around age 35. Describe (age, circumstance, etc) any past hospitalizations: Client had 3 hospitalizations surrounding diagnosis of bipolar (last hospitalization around 2012). Client has a history of one suicide attempt in 2012 by overdose. Current providers for mental health treatment (counselor, psychiatrist, social work case manager, etc.): MARLENY at [facility] main [place] for psychiatry Fall Risk Assessment Age Age: Less than 60 Mental Status Mental Status: Willing & able to ask for assistance when needed Physical Status Physical Status: No problems Impairments Impairments: None Elimination Elimination: Continent AND independent Gait or Balance Gait or Balance: Walks independently Hx of Falls History of falls in the past 6 months: No known history Medications/Substances Psychotropics:: Antipsychotics and Anxiolytics (e.g. benzodiazepines) Others:: Antihypertensives Medications/substances used within the past 24 hours or ordered to administer: 3 or more of the medications/substances listed above Total Score Total Points:: 2 RN Summary of Impressions Impressions Recommendations Impressions: Psychiatric Issues: 1. Bipolar 2 disorder (currently depressed) 2. Generalized anxiety disorder 3. PTSD 4. Chronic insomnia, obstructive sleep apnea, history of Hodgkin's, hypothyroid 5. Health concerns and work issues Impression: General Medical Conditions: Client states her last few A1C's have been between 5.8-6.1. Client states she does recognize symptoms of hyperglycemia and hypoglycemia and does have a blood glucose monitor to check blood sugar at home as needed. Level of Care How do the client's current symptoms and functional deficits support need for this level of care?: Client was referred to [facility] by outpatient psychiatry for depression, anxiety, and fleeting SI. Client states after she was diagnosed with bipolar and had a hospitalization, she was determined not to have another hospitalization because she disliked it so much. Client states she took her medications for awhile after diagnosis, but has been off mental health medications for several years until recently. Client states since April 2023, she has been noticing issues with her memory, extreme fatigue and joint pain. Client states after these things started, she did not some suicidal thoughts and knew she needed to be on medication for mental health again. Client has since starting seeing an outpatient psychiatrist and has started several medications. Client reports panic attacks a few times a week, usually due to social events. Client reports ongoing issues with her memory and fatigue. Client reports some crying spells and anhedonia. Client states she does have some fleeting SI at times, but denies at this time and denies plan or intent. IOP will promote gains and prevent further decompensation while providing social support and skills training.
--- NOTE | 2024-01-01 09:00 | BH.SGPN.GN ---
Behaviors/Verbalizations/Mental Status: [Patient was alert and oriented, appropriately dressed and groomed. Eye contact was good, motor activity normal, speech within normal limits. Affect congruent, mood anxious. Thoughts linear, logical, no signs of hallucinations or delusions. Reviewed Patients symptom tracker and the patient reports moderate to severe in depressed mood, anxiety/panic attacks, moderate in agitation/irritability/anger, thoughts of suicide, and low to moderate in self-harm urges, Patient does not report symptoms of risk of suicide. Patient will be checked in on to assess safety.] Client Response/Progress/Benefit: [Patient was engaged and open to the discussion. Patient reported her mood to be ?anxious?.?Patients first win is that she made a list of all the things she needs to accomplish in her home and started checking things off that list yesterday. Patients second win is that she bought a new journal to start writing in. Patients stressor is that she has recently discovered some health issues but does not know what the source is yet. Patient was interactive and respectful with other group members about their mental wins and stressors. Patient benefited from the discussion by listening to feedback and giving input on her peer?s stressors and mental health wins. Patient will continue with IOP treatment to help develop healthy skills, promote mood stability, and improve distress tolerance. ? ?] Narrative Note: []
--- NOTE | 2024-01-01 10:05 | BH.SGPN.GN ---
Behaviors/Verbalizations/Mental Status: [] Eye contact is good. Motor activity is appropriate. Appearance is casual. Speech is Appropriate. Mood is depressed. Affect is congruent. Thoughts are linear and logical. No evidence of psychosis. Client Response/Progress/Benefit: [] Pt was actively engaged AEB taking notes throughout session. Connected with the topic of pitfalls and listened to group discussion on internal and external barriers that prevent from choosing a healthier path to mental wellness. Group worked together to identify examples of personal internal pitfalls and pt identified theirs as lack of sefl-confidence, not communicating needs, isolation, and guilt. Pt benefited from group as pt learned to better identify and normalize potential barriers to improving mental health symptoms. Pt also gained awareness of the difference between external triggers and self-sabotaging behaviors. Will continue in IOP to decrease intrusive thoughts, improve functioning, and prevent decompensation. Narrative Note: []
[2024-01-01 10:17] VITALS: BP 150/86; PULSE 76
--- NOTE | 2024-01-01 11:10 | BH.SGPN.GN ---
Behaviors/Verbalizations/Mental Status: []Pt alert and oriented, casually dressed and groomed. Eye contact good. Motor activity appropriate. Speech within normal limits. Affect congruent, mood anxious and depressed. Thoughts linear, logical, no signs of hallucinations or delusions. Client Response/Progress/Benefit: [] Pt receptive of session, engaged throughout AEB actively contributing and listening to discussion, as well as taking notes. Pt participated in the experiential activity and processed with group how their emotions, perspective, and reactions positively and negatively impacted the outcome. Pt identified pitfalls they struggle with and shared wanting to work on pitfall of lack of self-confidence by practicing positive affirmations daily. Benefited from identifying personal pitfalls and strategies to overcome these pitfalls. Will continue IOP tx to prevent decompensation, improve daily functioning, and increase healthy coping skills. Narrative Note: []
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
--- NOTE | 2024-01-01 12:48 | BH.DR.ITP ---
Initial Treatment Plan Patient Information Visit Information: ADMISSION DATE: EXPECTED LOS: 4-6 weeks Problems/Symptoms Problem #1:: Depression Symptom:: Sadness, hopelessness, worthlessness, anhedonia, biological disruption of sleep, low energy, decreased concentration, guilt, passive suicidal ideation, positive passive thoughts of Problem #2:: Anxiety Symptom:: Worry, rumination, panic attacks, avoidance, hypervigilance
--- NOTE | 2024-01-02 09:05 | BH.SGPN.GN ---
Behaviors/Verbalizations/Mental Status: [] Eye contact is good. Motor activity is appropriate. Appearance is casual. Speech is Appropriate. Mood is depressed. Affect is congruent. Thoughts are linear and logical. No evidence of psychosis. Reviewed daily check in sheet and pt reports 3/5 for suicidal thoughts and 0/5 for intent. This has been her baseline since entering IOP earlier this week. Client Response/Progress/Benefit: [] Pt participated when prompted. Attentive. Daily symptom tracker notes 4/5 for depression and anxiety. Able to identify mental health wins and healthy habits. Pt set a goal to complete one house chore two days in a row. Elaborated on how this will benefit her mental health. Reports significant uncertainty and feeling unsure about her future functioning. Currently she is focusing on her mental health however she is worried how this will impact the family's finances which has increased her stress and guilt. Limited progress noted. Benefited from group support, encouragement, and feedback. Will continue in IOP to maintain safety, increase healthy coping, prevent decompensation, and improve functioning. Narrative Note: []
--- NOTE | 2024-01-02 10:15 | BH.SGPN.GN ---
Behaviors/Verbalizations/Mental Status: []Pt alert and oriented, neatly dressed and groomed. Eye contact good. Motor activity appropriate. Speech within normal limits. Affect flat, mood depressed. Thoughts linear, logical, no signs of hallucinations or delusions. Client Response/Progress/Benefit: [] Pt passive throughout. Attentive during interactive discussion on defining conflict (internal/external) and possible benefits to conflict. Attentive during psychoeducation on conflict styles and engaged during small group activity in which peers identified the benefits and consequences to each conflict style. Pt identified their primary conflict style as the avoiding type for both external and internal conflict. Benefited from increased awareness of the impact of conflict styles in mental health. Will continue in IOP tx to prevent decompensation, improve daily functioning, and gain healthy coping skills. ? Narrative Note: []
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
--- NOTE | 2024-01-07 09:05 | BH.SGPN.GN ---
Behaviors/Verbalizations/Mental Status: [] Eye contact is good. Motor activity is appropriate. Appearance is casual. Speech is Appropriate. Mood is depressed. Affect is congruent. Thoughts are linear and logical. No evidence of psychosis. Reviewed daily check in sheet and no reports of suicidal ideations or intent. Client Response/Progress/Benefit: [] Pt participated when prompted. Attentive. Emotions for today is anxious. Able to identify mental health wins and healthy habits. She shared that she has started to journal again. Elaborated on how this is beneficial to her mental health. She also had a stressful recent event however developed a coping strategy to manage her anxiety. As a result of this the event went well and she did not have a panic attack. Progress noted. Benefited from group support, encouragement, and feedback. Will continue in IOP to maintain safety, stabilize mood, and improve functioning. Narrative Note: []
--- NOTE | 2024-01-07 10:15 | BH.SGPN.GN ---
Behaviors/Verbalizations/Mental Status: [] Eye contact is fair. Motor activity is appropriate. Appearance is casual. Speech is Appropriate. Mood is anxious. Affect is constricted. Thoughts are linear and logical. No evidence of psychosis. Client Response/Progress/Benefit: []Pt engaged participant AEB listening to others, engaging in activity, and providing feedback at times. Attentive during psychoeducation and provided insight into obstacles that impede mental wellness. Pt shared with group current mental health reality and desired mental health reality. Stated she would like to get to a place where she is willing to ask for help, connected with others, and able to be more open. Identified barriers to desired reality include: no motivation, lack of confidence, isolation, rigid boundaries, and self-blame. Benefited from taking look at current mental health state and obstacles for progress. Pt to continue IOP tx to improve daily functioning, increase healthy coping skills, challenge negative thoughts, and prevent decompensation.
--- NOTE | 2024-01-07 11:15 | BH.SGPN.GN ---
Behaviors/Verbalizations/Mental Status: []Pt alert and oriented, casually dressed and groomed. Eye contact good. Motor activity appropriate. Speech within normal limits. Affect congruent, mood depressed and anxious. Thoughts linear, logical, no signs of hallucinations or delusions. Client Response/Progress/Benefit: []Pt participated in group discussion and activity. Worked with group to identify strategies to help overcome barriers and obstacles to desired reality. Group developed strategies for the common barriers of avoidance, poor boundaries, unrealistic expectations, low self-confidence, and isolation. Identified personal barriers to desired reality and choose one obstacle to work on this week which was isolation. Pt plans to do this by scheduling concrete plans with a friend to reduce the likelihood of cancelling. Pt seemed to benefit from group by identifying obstacles and solutions to desired reality. Will continue IOP tx to prevent decompensation, improve self-confidence and boundaries, and improve daily functioning. ? Narrative Note: []
--- NOTE | 2024-01-08 09:00 | BH.SGPN.GN ---
Behaviors/Verbalizations/Mental Status: [ Patient was alert and oriented, appropriately dressed and groomed. Eye contact was poor, motor activity normal, speech within normal limits. Affect congruent, mood tired. Thoughts linear, logical, no signs of hallucinations or delusions. Reviewed Patients symptom tracker and the patient reports moderate/severe in anxiety/panic attacks, moderate in depressed mood, low/moderate in agitation/irritability/anger, and self-harm urges, and low in thoughts of suicide. Patient does not report symptoms for risk of suicide.] Client Response/Progress/Benefit: [Patient was engaged and open to the discussion. Patient reported her mood to be ?drained?. Patients first win is that when she got up to let her dogs outside today, she was mindful of how everything is ?regrowing? and she compared that to her mental health journey. Patients second win is that she switched her doctors to a more local area instead of traveling to big cities to be seen. Patients stressor is that she has been struggling with a lot of anxiety and having bad dreams. Patient was interactive and respectful with other group members about their mental wins and stressors. Patient benefited from the discussion by listening to feedback and giving input on her peer?s stressors and mental health wins. Patient will continue with IOP treatment to help develop healthy skills, promote mood stability, and improve distress tolerance. ] Narrative Note: []
--- NOTE | 2024-01-08 10:10 | BH.SGPN.GN ---
Behaviors/Verbalizations/Mental Status: [] Eye contact is good. Motor activity is appropriate. Appearance is casual. Speech is Appropriate. Mood is anxious and depressed. Affect is congruent. Thoughts are linear and logical. No evidence of psychosis. Client Response/Progress/Benefit: [] Pt was an active participant in group discussions. Attentive during psychoeducation on the 4 communication styles (Passive, Passive-Aggressive, Aggressive, and Assertive) and the obstacles to effective communication. Contributed during interactive discussion on the benefits of communicating effectively which included; having one's needs met, helping, building connection with others, decreases stress and uncertainty, improved relationships, and increased trust. Worked well in small group in which pt and peers identified the benefits and disadvantages to the different communication styles. Pt identified connecting with aspects the passive communication style, reports she often is a people pleaser or shuts down rather than communicate her needs. Benefited from increased understanding of communication styles and how these can impact effective communication. Will continue in IOP to prevent decompensation, improve mood stability, and improve functioning. Narrative Note: []
--- NOTE | 2024-01-08 11:15 | BH.SGPN.GN ---
Behaviors/Verbalizations/Mental Status: []Pt alert and oriented, casually dressed. Eye contact good. Motor activity appropriate. Speech within normal limits. Affect congruent, mood depressed. Thoughts linear, logical, no signs of hallucinations or delusions. Client Response/Progress/Benefit: [] Pt responded well to session AEB Pt listening attentively to others and providing input during group discussion on the pay offs and costs of the different communication styles. Pt able to connect how current communication style impacts mental health. Connected with peers? comments about importance of using assertive communication. Pt did well being assertive in the group activity and practiced using assertive communication in the role playing scenarios. Pt helped her group develop assertive communication responses which pt reported was difficult because she is very passive. ?Pt seemed to benefit from increasing awareness of healthy strategies to improve communication. Will continue IOP tx to prevent decompensation, improve daily functioning, and increase mood stability. ?? Narrative Note: []
--- NOTE | 2024-01-09 09:03 | BH.SGPN.GN ---
Behaviors/Verbalizations/Mental Status: [] Eye contact is fair. Motor activity is appropriate. Appearance is casual. Speech is Appropriate. Mood is anxious. Affect is constricted. Thoughts are linear and logical. No evidence of psychosis. Reviewed daily check in sheet and reports 1/5, with 5 being severe, for thoughts of suicide and a 0/5 for suicidal intention. This is below pt's baseline. Client Response/Progress/Benefit: [] Pt participated at times during the group discussion. Attentive. Daily symptom tracked notes 3/5 for anxiety and 2/5 for depressed. Able to identify mental health wins and healthy habits. Pt stated mental health positive as making plans with her to go to the [employer] next week. Additional positive as talking with last night about starting to get back into playing board games together. Pt reported additional win as being able to manage anxiety yesterday by taking on the situation head on. Reported current stressor as my mind because it's constantly wanting her to do more. Benefited from group support, encouragement, and feedback. Will continue in IOP to challenge distorted thoughts, increased healthy coping skills, improve daily functioning, and prevent decompensation.
--- NOTE | 2024-01-09 10:10 | BH.SGPN.GN ---
Behaviors/Verbalizations/Mental Status: []Pt alert and oriented, neatly dressed and groomed. Eye contact good. Motor activity appropriate. Speech within normal limits. Affect constricted, mood depressed. Thoughts linear, logical, no signs of hallucinations or delusions. Client Response/Progress/Benefit: [] Pt was an active participant in group discussion. Attentive during psychoeducation on the CBT [place] (Thoughts, Behaviors, Emotions). Engaged in group discussion on how thoughts and behaviors can contribute to maintaining adverse feelings, such as depression, anxiety, and irritability. Completed personal maintenance cycle for depression and shared that she struggles with negative views of self. Shared this maintains depression and anxiety cycles. Pt benefited from increased awareness of the basis of CBT therapy as well as specific thoughts that are impacting pt's progress. Will continue in IOP tx to prevent decompensation, improve daily functioning, and increase healthy coping skills. ? Narrative Note: []
--- NOTE | 2024-01-09 15:42 | BH.MDN ---
Multi-Disciplinary Note Note 60-min Individual: Time Started:: 11:30 Date: 01/09/24 Purpose of session/treatment goals addressed:: Purpose of session was to address goals 1 and 2 from MTP. Eye Contact:: Fair Motor Activity:: Restless (Fidgety) Appearance:: Casual Speech:: Appropriate Mood:: Anxious and Depressed Affect:: Constricted Thoughts:: Linear, Logical and No evidence of hallucinations/delusions noted Staff Interventions:: thought challenging, psychoeducation on: (Fear ladder), CBT techniques, mindfulness skills, rapport building, strengths perspective, goal setting and taught coping skills Client Response:: Client stated over the last week she has been practicing setting realistic goals to help her combat her depressive and down mood. Client stated she does recognize that isolating from others is making her feel worse and keeps her and that depressed cycle. Client stated she is doing better with recognizing when she is feeling anxious which helps her either try to use a healthy coping skills like breathing or use her medication if necessary. Client reported yesterday was the first time she opened up to her about IOP. Client stated she thinks this is a good step in the right direction in opening up to her again. Client stated she also engaged in opposite action by planning to go out with her on Saturday to the movies. Client stated she has not been engaging in things she used to like for some time now. Client reported her used to go to a [employer] and really enjoyed going to the movies in the past and has not done that in a while. Client shared she does not do a lot of things in public because she has significant anxiety now when has to be in large crowds. Client reported she has had panic attacks in large crowds and now does not want to be there at a fear of panicking. Client stated this started about 4 years ago. Client receptive to learning about anxiety few ladder and how she can take small steps to try to expose herself to anxious provoking situations. Client stated she does think that this could be helpful because she recognizes avoidance is only making her anxiety worse. Client stated 1 day she would like to go to get back to going to [employer] but recognizes that might take a while. Client encouraged to start to pay attention to things that she avoids due to her anxious thoughts and feelings. Client is to continue setting daily goals and task and engage in opposite action. Risks/Concerns:: Denies suicidal ideation, plan, or intention. Occasional passive thoughts of . Future oriented Progress Toward Goals/Plan:: Progress noted with client reporting increased daily activity with starting to use behavior activation by doing small tasks around the house. Client also has set a goal to go to the movies with her next week which is something she has not done in a while. Discussed healthy coping skills and calming skills that she can utilize like grounding and breathing close. Client continues to struggle with depressed mood with slight improvement since starting to engage in opposite action. Client continues to report her anxiety keeps her from engaging in socialization and going to any situation that light have lots of people in a tight space. Plan is for client to continue IOP to improve daily functioning, increase of the coping, decrease avoidance of anxious things, and prevent decompensation. Time Stopped:: 12:30
--- NOTE | 2024-01-14 09:00 | BH.SGPN.GN ---
Behaviors/Verbalizations/Mental Status: [] Eye contact is fair. Motor activity is appropriate. Appearance is casual. Speech is Appropriate. Mood is depressed. Affect is flat. Thoughts are linear and logical. No evidence of psychosis. Reviewed daily check in sheet and reports passive thoughts of , denies suicidal intention. Does not appear to be imminent risk to harm self or others. Client Response/Progress/Benefit: [] Pt participated at times during the group discussion. Attentive. Client reported feeling down and deflated this morning. Client shared over the weekend she had a negative reaction to her Lamictal which resulted in her having to go to the ER and now has to stop her mood stabilizer and does not know what the next episode being in regards to medication. Client stated she really thought this medication was helping her and unfortunately not has to figure out the new med that can help with her mood stabilization. Client stated a mental positive is making herself go to the movies with her yesterday evening when she was feeling down and depressed due to the medication issue. Client stated eventually she was able to be present and enjoy the movie. Client reported additional mental positive as working on accomplishing at least 1 task each day. Benefited from group support, encouragement, and feedback. Will continue in IOP to improve mood stabilization, increase healthy coping skills, and prevent decompensation.
--- NOTE | 2024-01-14 10:05 | BH.SGPN.GN ---
Behaviors/Verbalizations/Mental Status: []Pt alert and oriented, casually dressed and groomed. Eye contact good. Motor activity appropriate. Speech within normal limits. Affect congruent, mood anxious and depressed. Thoughts linear, logical, no signs of hallucinations or delusions. Client Response/Progress/Benefit: []Pt was an active participant in group discussion and activity. Attentive during psychoeducation. Along with peers, pt was able to identify barriers to taking action in their life. Identified several symptoms and stressors that pt feels are holding them back from progress such as negative self-talk, isolation, unrealistic expectations, and poor boundaries. Stated these things have kept pt from making healthy changes, seeking help, improving her enjoyment in life, and self-esteem. Pt shared wanting to begin addressing the impact isolation has had on their ability to take action. Benefited from increased self-awareness of obstacles. Will continue IOP tx to improve mood management, promote consistent skill application, and further improve self-confidence. Narrative Note: []
--- NOTE | 2024-01-14 13:39 | BH.MDN_ITS ---
Multi-Disciplinary Note Note 45-min Individual: Time Started:: 11:10 Date: 01/14/24 Purpose of session/treatment goals addressed:: Purpose of session was to address goals 1 and 2 from TP. Eye Contact:: Fair Motor Activity:: Restless (Fidgety) Appearance:: Casual Speech:: Appropriate Mood:: Anxious and Depressed Affect:: Constricted Thoughts:: Linear, Logical and No evidence of hallucinations/delusions noted Staff Interventions:: thought challenging, CBT techniques, mindfulness skills, strengths perspective, goal setting and taught coping skills Client Response:: Client shared that over the weekend she had an allergic reaction to her Lamictal which resulted in her having to go to the ER. Client stated she was told to stop taking her Lamictal and was given a steroid to help manage the allergic reaction she was having. Client stated she was able to get ahold of her nurse practitioner at the [facility] told her to stay off the Lamictal and did not want to start a new medication until the next appointment on January 21. Client stated she felt very emotional as if she could cry at any moment. Client stated despite this increased emotional feelings and stressor of medication change she did go to the movies with her . Client stated initially she was having lots of worries that she could not seem to stop but eventually was able to engage and enjoy the movie. Client reported she is having some difficulty with managing her worries about her daughter right now. Client stated her daughter is in a not great situation currently relationship krishnan which results in client continuing to worry and obsess about. Client agr eed it is important for him to start to think about what is within her control in regards to the stressor and try to interrupt the worries by changing environment or using grounding tools. Client stated her anxiety also makes it difficult for her to relax. Client show when she has her grandkids over she cannot enjoy herself because she is constantly thinking if all the knives are put away, looking for things that could be unsafe and she has to constantly clean up after the kids. Client recognizes this takes away from her being able to enjoy time with her grandkids. Therapist encouraged client to start practicing grounding and breathing tools more consistently and interrupting her anxious cycles. Client stated she did use opposite action by planning for games with her on 2 different occasions. Client stated what she made herself play the game she ended up really enjoying it. Risks/Concerns:: Denies active suicidal ideation, plan, or intention. Future oriented. Progress Toward Goals/Plan:: Progress noted with client following through with spending quality time with her by going to the movies and playing board games again. Client able to do this despite having medication complications which lead to having to get off her Lamictal. Client is feeling more emotional recently and is having anxiety about not being on another mood stabilizer. Plan is for client to meet with IOP psychiatrist this week. Client to continue IOP to stabilize moods, increase healthy coping, and prevent decompensation. Time Stopped:: 12:00
--- NOTE | 2024-01-15 09:00 | BH.SGPN.GN ---
Behaviors/Verbalizations/Mental Status: [] Pt alert and oriented, neatly dressed and groomed. Eye contact good. Motor activity appropriate. Speech within normal limits. Affect congruent, mood hopeful. Thoughts linear, logical, no signs of hallucinations or delusions. Reviewed pt?s symptom tracker, no risk for suicidal ideation, plan, or intent 01/15/24 Client Response/Progress/Benefit: []Pt responded well to session, attentive and listening to peers. Pt reports feeling discouraged but hopeful this morning. Pt had an adverse reaction a medication, so she had to stop which made pt anxious that she will decompensate. One of pt's wins today was challenging her negative thoughts and reminding herself that progress is a combination of medications and skills. Pt also shared she is working on her isolation by scheduling things with friends and her daughter. Pt appeared to benefit from reflecting on her application of coping skills and peer feedback. Pt will continue IOP tx to prevent decompensation, increase distress tolerance, and improve ability to combat distortions. Narrative Note: []
--- NOTE | 2024-01-15 10:10 | BH.SGPN.GN ---
Behaviors/Verbalizations/Mental Status: [] Eye contact is good. Motor activity is appropriate. Appearance is casual. Speech is Appropriate. Mood is depressed. Affect is congruent. Thoughts are linear and logical. No evidence of psychosis. Client Response/Progress/Benefit: [] Client responded well to session AEB sharing and listening attentively to others. Group identified types of social support (family, pets, professionals, spiritual, etc) and provided examples of benefits of having social support, including: decreased stress, increased self-esteem, encouragement, distraction, etc. Client also participated in group discussion regarding the barriers to accessing support such as: lack of awareness, lack of trust, and low self-esteem. Client participated in experiential activity illustrating the impact communication, boundaries, and patience play in creating healthy support systems. Client appeared to benefit from increased knowledge of the benefits of social support and greater self-awareness. Will continue IOP to prevent decompensation, maintain safety, increase healthy coping, and improve functioning. Narrative Note: []
--- NOTE | 2024-01-15 11:10 | BH.SGPN.GN ---
Behaviors/Verbalizations/Mental Status: [] Client alert and oriented, casually dressed and groomed. Eye contact good. Motor activity appropriate. Speech within normal limits. Affect congruent, mood anxious and dysthymic. Thoughts linear, logical, no signs of hallucinations or delusions. Client Response/Progress/Benefit: [] Client was an active participant throughout AEB contributing to discussion, providing personal examples, and taking notes. Client processed emotions felt in the activity and how they coped in the moment. Client provided input during discussion on the types of support our supports can provide. Client able to identify current support system and barriers that get in the way of using supports by drawing out their own support net. Client reported after identifying what type of supports they receive; they gained awareness that they could benefit from more social supports. Client identified steps to achieve this by challenging herself to make more concrete and intentional plans with friends. Client shared increasing tangible supports will help them become more more emotionally regulated and positive/hopeful as well. Client seemed to benefit from identifying the type of support client needs to work on improving. Client recommended to continue IOP tx to promote continued application distress tolerance skills and increase emotional regulation skills. Narrative Note: []
--- NOTE | 2024-01-15 12:29 | PCM.BH.PN_ITS ---
Progress Note Progress Note: History of Present Illness/Interim History: The patient is a 48-year-old female with a history of bipolar 2 disorder, PTSD and anxiety who is seen in follow-up at the [facility] behavioral health [facility]. The patient's Lamictal was increased by her outpatient provider and she had Wilson- Keon syndrome and was seen in the occasion was discontinued. I last saw the patient 2 weeks ago and at that time no medication changes were made as her Seroquel and Lamictal had recently been started and increased. Patient states that her symptoms of depression are essentially the same. She endorses sadness, crying, low motivation, hopelessness, worthlessness, guilt, isolation when not at work, anhedonia, low energy, fatigue, decreased concentration, guilt, passive thoughts of , and passive fleeting suicidal ideation several times a week. She denies active suicidal ideation, plan for suicide, homicidal ideation, hallucinations, delusions or recent price. The last time she had any self-harm by hitting was 2 to 3 weeks ago. She is still on a leave of absence from work and is still worried about getting a recurrence of her Hodgkin's lymphoma that she is getting worked up for. Patient is still seeing a sleep specialist for her history of insomnia and also is on armodafinil for this. Current Psychiatric Medications: [] Seroquel 50 mg p.o. nightly (increased 3 weeks ago by outpatient provider); Lamictal discontinued secondary to rash in the last week or so. Melatonin 10 mg p.o. nightly; hydroxyzine 25 mg up to 3 times a day as needed for anxiety; Klonopin 1 mg p.o. nightly. Mental Status Examination: [] Patient is a 48-year-old female who colleen ears normal for stated age and is casually dressed and groomed with good hygiene. She is ambulatory with a normal gait and has no psychomotor agitation or retardation. Speech is normal rate and rhythm and fluent with no pressure. Eye contact is good. Mood is depressed. Affect is constricted. Thought process is goal directed and organized. Thought content: There is evidence of passive thoughts of and occasional passive, fleeting suicidal ideation. There is no evidence of active suicidal ideation, plan for suicide, homicidal ideation, hallucinations, delusions or symptoms of hypomania. Reality testing is intact. Intelligence is average or above. Judgment is intact. Insight fair. Impulsivity moderate. Diagnoses: [] 1. Bipolar 2 disorder (currently depressed) 2. Generalized anxiety disorder 3. PTSD 4. Chronic insomnia, obstructive sleep apnea, history of Hodgkin's lymphoma, hypothyroidism 5. Health concerns and work issues Plan: [] The patient will continue the IOP and behavioral health at [facility] as the structure, support, education and group therapy will hopefully prevent worsening of the patient's symptoms. She felt safe during the interview and if it anytime she does not feel safe she agrees to let us know or go to the emergency room. The risks, options, possible complications and side effects of the medications were discussed with the patient and she understands accepts these. The patient agrees to increase her Seroquel to 100 mg p.o. nightly. Patient is given the option of adding Trileptal at some point since she cannot take Lamictal. But she also understands that Seroquel can serve as a mood stabilizer also for bipolar disorder in addition to treating bipolar depression. She will continue to follow-up with her outpatient medical and psychiatric providers and I will see the patient in follow-up in 2 weeks.
--- NOTE | 2024-01-17 09:05 | BH.SGPN.GN ---
Behaviors/Verbalizations/Mental Status: [] Eye contact is good. Motor activity is appropriate. Appearance is casual. Speech is Appropriate. Mood is depressed. Affect is congruent. Thoughts are linear and logical. No evidence of psychosis. Reviewed daily check in sheet and pt reports 1/5 for suicidal thoughts and 0/5 for intent. This is baseline. Client Response/Progress/Benefit: [] Pt participated when prompted. Attentive. Daily symptom tracker notes 4/5 for depression, 3/5 for anxiety, and 2/5 for irritability. Able to identify mental health wins and healthy habits. Reports feeling fuzzy and flat today which she attributes to recent medication changes. Notes feeling frustrated with struggles with finding a effective medication and with her mental health. Why do I have to deal with this?Increased urges to participate in self-injurious behaviors which she notes can release tensions, however utilizing skills to not engage. Group provided support, empathized, and provided suggestions to manage self-harm urges which was beneficial. She spent time with healthy support yesterday and elaborated on how this benefited her mental health. Will continue in IOP to maintain safety, stabilize mood, increase healthy coping skills. Narrative Note: []
--- NOTE | 2024-01-17 11:10 | BH.SGPN.GN ---
Behaviors/Verbalizations/Mental Status: []Pt alert and oriented, neatly dressed and groomed. Eye contact good. Motor activity appropriate. Speech within normal limits. Affect constricted, mood depressed. Thoughts linear, logical, no signs of hallucinations or delusions Client Response/Progress/Benefit: [] Pt was an active participant during group discussion. Pt was placed in a smaller group and participated in combatting example distortions with peers. Pt was engaged in the smaller group, participated in group interactions to brainstorm answers, and appeared to be comprehending cognitive distortions. Stated she connects a lot with labeling like ?I?m crazy and stupid? and disqualifying the positives. Benefited from gaining further insight and awareness of cognitive distortions as well as practicing ways to reframe and challenge thoughts. Will continue in IOP to prevent decompensation, improve daily functioning, and increase application of healthy coping skills. Narrative Note: []
--- NOTE | 2024-01-21 09:05 | BH.SGPN.GN ---
Behaviors/Verbalizations/Mental Status: [] Eye contact is good. Motor activity is appropriate. Appearance is casual. Speech is Appropriate. Mood is depressed. Affect is congruent. Thoughts are linear and logical. No evidence of psychosis. Reviewed daily check in sheet and pt reports 3/5 for suicidal ideations and 0/5 for intent. Client Response/Progress/Benefit: [] Pt participated at times during the group discussion. Attentive. Daily symptom tracker notes 4/5 for depression and 3/5 for anxiety,irritability, and self-harm urges. Emotion for today is blah. Pt reports rough weekend. Discussed recent medication changes which is frustrating as she has not been able to find a medication that has not had side effects. She had panic attacks over the weekend in which she was able to work through them. Utilizing skills with benefits. Also completing goals setting tasks. Progress noted. Benefited from group support, encouragement, and feedback. Will continue in IOP to maintain safety, prevent decompensation, and improve functioning. Narrative Note: []
--- NOTE | 2024-01-21 10:10 | BH.SGPN.GN ---
Behaviors/Verbalizations/Mental Status: []Eye contact is fair. Motor activity is appropriate. Appearance is casual. Speech is Appropriate. Mood is depressed. Affect is constricted. Thoughts are linear and logical. No evidence of psychosis. Client Response/Progress/Benefit: []Pt participated during the group discussion. Attentive during psychoeducation and actively engaged during experiential activity. Participated during interactive discussion on aspects of fixed mindset. Group identified several aspects of fixed mindset which include: inflexible, belief that one cannot grow, absolute thinking, and all of one's skills, traits, and behaviors can't change. Group identified personal examples of fixed thinking in which pt shared personal fixed thoughts as: I'm always going to struggle wtih depression and anxiety, and I am alone. Benefited from increased understanding of personal fixed mindsets and how they can impact mental health. Will continue in IOP to challenge distortions, increase healthy coping, and prevent decompensation.
--- NOTE | 2024-01-21 11:10 | BH.SGPN.GN ---
Behaviors/Verbalizations/Mental Status: []Pt alert and oriented, casually dressed and groomed. Eye contact good. Motor activity appropriate. Speech within normal limits. Affect congruent, mood content. Thoughts linear, logical, no signs of hallucinations or delusions. Client Response/Progress/Benefit: [] Pt was an active participant during activity and discussion. Pt did well to remain attentive and participate as group worked on identifying characteristics and benefits of adopting a growth mindset. Worked with fellow participants in reframing the example fixed thoughts into growth mindset thoughts. Pt worked on changing own fixed thought and reframed the thought to ?I feel alone, but I have a supportive spouse I can rely on.? Pt appeared to benefit from challenging own thoughts and engaging in the activity. Pt will continue IOP tx to prevent decompensation, monitor medication changes, and improve daily functioning. Narrative Note: []
== END 2024-01-21 23:59 ==
LOC: BHIOP 08:00
PROVIDERS: PCP Nurse Practitioner Family; Referring Provider Psychiatry & Neurology Psychiatry; Visit Provider Psychiatry & Neurology Psychiatry
DX: F31.81 Bipolar II disorder (principal); F41.1 Generalized anxiety disorder; F43.10 Post-traumatic stress disorder, unspecified; G47.00 Insomnia, unspecified; G47.33 Obstructive sleep apnea (adult) (pediatric); C81.90 Hodgkin lymphoma, unspecified, unspecified site; E03.9 Hypothyroidism, unspecified; Z79.899 Other long term (current) drug therapy
CPT/HCPCS: S9480; 90834; 90837; 90853

== ENCOUNTER 2024-01-22 06:34 | Outpatient (RCR) | payer OTHER, SELFPAY ==
[2024-01-22 00:55] VITALS: BP 150/86; PULSE 76
--- NOTE | 2024-01-22 09:01 | BH.SGPN.GN ---
Behaviors/Verbalizations/Mental Status: [] Eye contact is good. Motor activity is appropriate. Appearance is casual. Speech is Appropriate. Mood anxious. Affect is congruent. Thoughts are linear and logical. No evidence of psychosis. Reviewed daily check in sheet and pt denies suicidal ideation, plan, intention. Client Response/Progress/Benefit: [] Pt was an active participant in group discussions. Attentive. Patient reported her mood today is anxious reporting that she woke up feeling this way. Client noted a mental positive as being able to cook to meals 2 days in a row. Patient notices significant progress for her because it has been a struggle. Patient noted additional mental positive as starting to find her humor again and playing silly jokes on her . Patient stated that her has started to notice some positive since she started the IOP program. Patient reported current stressor is trying to manage her all or nothing to her thought patterns which tend to consume her and lead to irrational behavior. Benefited from group support, encouragement, feedback. Will continue in IOP to increase consistent application of healthy coping skills, prevent decompensation, and build confidence.
--- NOTE | 2024-01-22 10:10 | BH.SGPN.GN ---
Behaviors/Verbalizations/Mental Status: []Pt alert and oriented, appropriate grooming/appearance. Eye contact good. Motor activity appropriate. Speech within normal limits. Affect congruent, mood anxious and depressed. Thoughts linear, logical, no signs of hallucinations or delusions. Client Response/Progress/Benefit: []Pt was an active participant in group discussions. Attentive during psychoeducation. Contributed during interactive discussions in which peers attempted to define crisis. Pt identified examples of potential crisis. Group also worked together to identify unhealthy responses to crisis which included; isolation/avoidance, changes in music and using headphones, as well as increased attention to details. Pt identified personal warning signs as increased . Benefited from increased understanding of crisis and awareness of personal responses to crisis. Pt will continue IOP tx to reduce ruminating thoughts, increase healthy coping, and prevent decompensation. Narrative Note: []
--- NOTE | 2024-01-22 11:10 | BH.SGPN.GN ---
Behaviors/Verbalizations/Mental Status: []Eye contact is good. Motor activity is appropriate. Appearance is casual. Speech is Appropriate. Mood is anxious and depressed. Affect is congruent. Thoughts are linear and logical. No evidence of psychosis. Client Response/Progress/Benefit: [] Pt was an active participant in group discussions. Attentive during psychoeducation. In small group pt along with peers developed an active plan for their crisis warning signs. Pt identified three crisis warning signs as well as an action plan for each. One crisis warning sign was increased isolation. Pt identified coping skills to help with this such as: opposite action to go outside, take the dog for a walk, go to a less trafficked coffee shop, play a board game with her spouse. Benefited from increased awareness of crisis warning signs and by developing crisis intervention strategies. Will continue in IOP to prevent decompensation, increase self-confidence, and maintain mood stability. ? Narrative Note: []
--- NOTE | 2024-01-22 15:25 | BH.MTP_ITS ---
Treatment Plan Review Demographics Date of Admission:: 12/30/23 Date of Treatment Plan Review:: 01/22/24 Admitting Diagnoses:: 1. Bipolar 2 disorder (currently depressed) F31.81 2. Generalized anxiety disorder 3. PTSD Current Diagnoses:: 1. Bipolar 2 disorder (currently depressed) F31.81 2. Generalized anxiety disorder 3. PTSD Patient Status Patient's Response to Treatment:: Pt has responded well to program as evidenced by consistent attendance, engagement in individual therapy, and increased engagement in group sessions. Status of Current Problems and Symptoms: Patient has had a medication issue that is hindrance to her treatment progress. The patient's Lamictal was increased by her outpatient provider and pt had Wilson-Keon syndrome. Pt's Lamictal was discontinued. Patient states that her symptoms of depression are essentially the same. She endorses sadness, crying, low motivation, hopelessness, worthlessness, guilt, isolation when not at work, anhedonia, low energy, fatigue, decreased concentration, guilt, passive thoughts of , and passive fleeting suicidal ideation several times a week. Pt reports worries that she won't find a medication that works. However, pt is able to recognize she has been using skills and opposite action to engage in activities despite her medication struggle. Per DSM 5 cross-cutting measure client's overall symptoms have decreased by 20%. Progress Problem #1: Problem Name:: Mood Instability Status of Goals:: Obj 1 - progress noted, ongoing work encouraged. Pt is able to identify healthy coping skills like changing environment, opposite action, and walking. Pt does struggle with consistently applying skills at times. Obj 2 - not met. Pt is starting to have increased awareness of how her negative thoughts often reinforce her depressed feelings. Starting to work on challenging negative thoughts. Per DSM 5 cross-cutting measure client's depression as decreased by 20%. Team Recommendations:: Team recommends continued work on goals and objectives to show consistent use of skills and pt reporting improved daily functioning. Problem #2: Problem Name:: Anxiety Status of Goals:: Obj 1 - partially met. Client able to identify belly breathing, grounding, and mindfulness. Client reporting feeling increased anxious thoughts after experiencing medication reaction. Obj 2 - Not met. Pt working on increasing knowledge/awareness of anxiety triggers. Per DSM 5 cross- cutting measure client's scores indicate a 17% decrease in anxious symptoms. Team Recommendations:: Team recommends continued work on goals and objectives to show consistent use of skills and pt reporting improved daily functioning.
--- NOTE | 2024-01-24 10:20 | BH.SGPN.GN ---
Behaviors/Verbalizations/Mental Status: []Pt alert and oriented, casually dressed and groomed. Eye contact poor. Motor activity appropriate. Speech within normal limits. Affect congruent, mood depressed. Thoughts linear, logical, no signs of hallucinations or delusions. ? Client Response/Progress/Benefit: []Pt responded well to session, attentive and engaged. Pt participated in activity where pts had to guess the celebrity with a known mental health diagnosis and this led to discussion on self-stigma. Group participated in the discussion defining stigma as well as what stigma has kept pt's from doing in their lives. Pt stated mental health stigma has led pt to feel like I have a secret I have to keep about myself and I felt shame. Pt has been working on overcoming internal and societal stigma, and acknowledged that internal stigma has been harder to combat. Pt shared in her family there was a lot of mental health stigma pt has had to try and overcome. Pt worked with peers to begin discussion of what reinforces stigma and this was discussed further in the next group. Pt appeared to benefit from learning about the different types of stigma as well as gaining awareness of how stigma as personally impacted pt. Pt will continue IOP tx to promote mood stability, combat distortions, and increase self-compassion. Narrative Note: []
--- NOTE | 2024-01-24 11:15 | BH.SGPN.GN ---
Behaviors/Verbalizations/Mental Status: []Client alert and oriented, casually dressed and groomed. Eye contact good. Motor activity appropriate. Speech within normal limits. Affect congruent, mood euthymic. Thoughts linear, logical, no signs of hallucinations or delusions. Client Response/Progress/Benefit:?[] Client engaged participant AEB participating in the activity, providing input during small group discussion, and listening attentively to others. Client appeared to connect with discussion in the benefits of addressing mental health stigma which included: improved relationships, increased willingness to seek help, increased happiness, and improved confidence. Group brainstormed strategies to combat social and perceived stigma. ?Client shared one thing she can personally do to combat stigma is to start talking more openly to her close friends about her mental health. Appeared to benefit from increasing awareness of strategies to combat stigma. Will continue IOP tx to maintain gains, continue use of healthy coping, and prevent decompensation.
--- NOTE | 2024-01-24 13:39 | BH.MDN_ITS ---
Multi-Disciplinary Note Note 60-min Individual: Time Started:: 09:00 Date: 01/24/24 Purpose of session/treatment goals addressed:: Purpose of session was to address goals 1 and 2 from MTP. Eye Contact:: Fair Motor Activity:: Restless Appearance:: Casual Speech:: Appropriate Mood:: Anxious, Dysthymic and Other (Tired) Affect:: Constricted Thoughts:: Linear, Logical and No evidence of hallucinations/delusions noted Staff Interventions:: thought challenging, CBT techniques, strengths p erspective, goal setting, taught coping skills and other (Tip skill) Client Response:: Client stated she had a rough weekend because she is not getting very much sleep lately. Client reported she had been on the new dose of Seroquel for a little over a week and has noticed an increase in restless legs syndrome at night. Client reported she does not feel like she is getting much rest even when she is asleep because her legs constantly are moving. Client stated over the weekend she started spiraling down and having increased negative thinking. Client stated she had to leave her house for a couple hours because she was being really irritable and taking it out on her . Client stated she left and sat in a parking lot for over 2 hours. Alexis ent stated she did end up self-harming that evening by cutting herself because she felt like she needed some sort of release of all of her emotions. Client reported she did tell her about her self-harm. Client shared she also had self harmed a few weeks ago but did not tell anybody. Client stated she sometimes does not know what to do when she is feeling like everything is spending. Therapist provided psychoeducation and taught her this tip skill. Therapist explained the tip skills is temperature change, intense exercise, paced breathing, impaired progressive muscle relaxation. Therapist encouraged client next time she is having the impulsive urge to self-harm she can hold an ice cube in her hand and she can open the freezer and put her face in the cold air. Therapist reviewed what progressive muscle relaxation is encouraging her to try to do that at nighttime because it could really help with sleep. Client seemed to be receptive to education of new coping skills that she can try. Risks/Concerns:: Denies active suicidal ideation, plan, and intention to date. Passive thoughts of denies active plan. Future oriented. Family identifies protective factors. Progress Toward Goals/Plan:: Patient reporting decompensation with erratic mood, increased negative thinking, and reverting back to unhealthy coping skills like self-harm over the weekend. Progress can be noted with client following through with small daily goals and using opposite action. Client having negative side effects from recent increase in Seroquel. Client is to call IOP on Saturday if the restless leg and lack of sleep continues throughout the weekend. Client receptive to the plan and agreeable. Plan is for client to continue IOP to stabilize moods, challenge negative thoughts, improve daily functioning, and prevent decompensation. Time Stopped:: 09:45
--- NOTE | 2024-01-28 09:00 | BH.SGPN.GN ---
Behaviors/Verbalizations/Mental Status: [] Client alert and oriented, casual appearance. Eye contact fair. Motor activity appropriate. Speech within normal limits. Affect constricted, mood exhausted, depressed. Thoughts linear, logical, no signs of hallucinations or delusions. Reviewed client?s symptom tracker, no risk for suicidal ideation, plan, or intent. Client Response/Progress/Benefit: [] Client responded well to session AEB listening to others and sharing thoughts/feelings. Client shared she is feeling exhausted. Client stated current stressors are difficulties with her medication and a family situation with her daughter. Client shared she is not able to sleep due to medication complications which is catching up to her. Client able identifying mental positives despite current stressors especially with medication complications. Client stated mental twin has been sticking to her daily chore list. Client reported additional when was finishing a large project yesterday by breaking into small chunks throughout the last couple weeks. Client noted the benefit of breaking down projects into small action steps versus trying to get done all at once. Client noted additional mental positive as being able to recover after having a rough mental health day on Saturday by challenging negative thoughts and trying to focus on what she could do in the current moment. Appeared to benefit from support from peers. Will continue IOP tx to improve mood stability, increase healthy coping skills, remedy medication issues, and prevent decompensation. Narrative Note: []
--- NOTE | 2024-01-28 10:05 | BH.SGPN.GN ---
Behaviors/Verbalizations/Mental Status: []Eye contact is good. Alert and oriented. Motor activity is appropriate. Appearance is casual. grooming is appropriate. Speech is Appropriate. Mood is depressed. Affect is congruent. Thoughts are linear and logical. No evidence of psychosis or hallucinations. Client Response/Progress/Benefit: []Client an active participate AEB providing contributions, listening attentively to others, and taking notes throughout. The group identified the impact of emotions on communication such as change in tone, body language, shutting down, misperceiving the communication, and willingness to communicate. Client shared struggling with shutting down when experiencing increased anger or disappointment. During group activity, client did well to challenge herself to participate and reflected on feeling anxious when trying to trust others to guide her to the group goal. Connected this back to feeling anxious when challenged to trust others in own life. Client benefited from session by gaining an increased understanding on the importance of managing emotions to improve daily functioning. Client will continue IOP to further improve mood stability, improve consistent skill application, continue to adjust medications, and prevent decompensation. Narrative Note: []
--- NOTE | 2024-01-28 11:05 | BH.SGPN.GN ---
Behaviors/Verbalizations/Mental Status: []Pt alert and oriented, casually dressed and well groomed. Eye contact good. Motor activity appropriate. Speech within normal limits. Affect congruent, mood depressed. Thoughts linear, logical, no signs of hallucinations or delusions. Client Response/Progress/Benefit: [] Pt engaged in session AEB Pt listening attentively to peers and providing input. Attentive during psychoeducation on 4 zones of regulation. Pt able to identify feelings and behaviors for each zone. Pt identified coping skills one can use to support self in each zone. Identified being in the yellow zone when she came to IOP today, but now pt feels more in the green zone. Pt wants to use affirmations, goal setting, and communication to stay in the green zone. Benefited from increased education on zones of regulation or stages of alertness for emotions and healthy coping skills to use for each zone. Will continue IOP tx to improve distress tolerance, reduce negative thinking patterns, and prevent decompensation. Narrative Note: []
--- NOTE | 2024-01-28 14:18 | BH.MDN_ITS ---
Multi-Disciplinary Note Note 60-min Individual: Time Started:: 12:02 Date: 01/28/24 Purpose of session/treatment goals addressed:: Purpose of session was to address goals 1 and 2 from MTP. Eye Contact:: Fair Motor Activity:: Restless Appearance:: Casual Speech:: Appropriate Mood:: Anxious and Dysthymic Affect:: Congruent Thoughts:: Linear, Logical and No evidence of hallucinations/delusions noted Staff Interventions:: thought challenging, CBT techniques, strengths perspective, goal setting, taught coping skills and other (chain analysis) Client Response:: Client reported over the weekend client stated the weekend was very stressful for her. Client stated it was discovered by her daughter's boyfriend that her daughter has been cheating. Client reported this all came out Saturday evening. Client stated her daughter is not handling the situation very well. Client stated that daughter's boyfriend is remaining calm and rational so far. Client reported this situation is increasing her anxiety but she is trying to focus on what is within her control currently. Client states she is worried about the 3 grandchildren that are involved in the situation. Client stated she is nervous that her daughter is exhibiting some symptoms of price currently. Client stated Saturday she was feeling very overwhelmed with the stress of her daughter and just little things around the house. Client stated she did self-harm on Saturday. Client shared she has pressure with herself because she did not try to use ice as a coping skill that has worked previously in the past to help decrease the urge. Client reported although she did self-harm she recognizes that she did not cut as deeply as she would have in the past. Client reported the next day she challenge her negative thought patterns and decided to focus on what was within her control of the day and not let the weekend room and the rest of her week. Client stated she is feeling frustrated because the 2 medications she has been on recently are causing issues with one having to be stopped completely due to a allergic reaction and her Seroquel needing to be decreased due to increased restless leg syndrome. Client reported she is hopeful when she meets is the [facility] psychiatrist, they can come up with a game plan for medications so that her mood can be more stable. Client stated she is still somewhat struggling with spending money that she should not be spending. Client shared about 2 weeks before she started [facility] she started opening credit cards up and her name and her 's name. Client stated she did not end up spending money until about a week in IOP because she started feeling better. Client reported she came clean about a week or 2 ago to her about some of the credit cards and gave him the cards. Client reported she has not shared with him that she also has credit cards in his name. Client stated that she has been struggling with some thoughts that rationalize her behavior and keep her in the cycle of keeping the cards hidden so that she has money to spend. Client stated she feels somewhat elation when she does get to spend money and buy something. However her has been noticing more packages around the house and has been telling her to return things that she has bought. Client worked with therapist to go over her chain analysis of her current impulsive urges and potential consequences if she continues to hide what she is doing. Client recognizes that eventually her is going to find a bill that she does not get before him or seeing on his credit report which she recognizes will make it much worse. Client agreed it would be helpful for her to be honest with her about going on instead of continuing to hide it. Risks/Concerns:: Denies suicidal ideation, intention, and plan. Progress Toward Goals/Plan:: Progress noted with client using opposite action, accomplishing tasks around the house, challenging negative thoughts, and initiating quality time with her . Decompensation can be noted with client reverting back to self-harm over the weekend and engaging in some risky behavior with spending. Client has had difficulty adjusting to meds and is still in the process of finding a medication that she does not have side effects to. Client recently had a decrease herself to Seroquel due to side effects. Client is to meet with [facility] psychiatrist tomorrow to develop a new medication plan. Plan is for client to continue IOP to stabilize moods, increase consistent use of healthy coping skills, and prevent decompensation. Time Stopped:: 13:00
--- NOTE | 2024-01-29 09:05 | BH.SGPN.GN ---
Behaviors/Verbalizations/Mental Status: [] Eye contact is good. Motor activity is appropriate. Appearance is casual. Speech is Appropriate. Mood is depressed/irritable. Affect is congruent. Thoughts are linear and logical. No evidence of psychosis. Reviewed daily check in sheet and pt reports 2/5 for suicidal ideations and 0/5 for intent. Improvement from yesterday. Client Response/Progress/Benefit: [] Pt participated when prompted. Attentive. Daily symptom tracker notes 3/5 for depression/anxiety and a 4/5 for irritability. Reported feeling detached today believing that she is in self-preservation mode. Reports difficult family situation which is leading to every emotion. Family stress in addition to recent struggles with mental health as well as difficulty finding a mood stabilizer has resulted in frustration. Despite this she reports that she is focusing on practicing patience and acceptance of situations that she has limited control. Attempting to focus on completing her routines, responsibilities, and self-care. Beneifted from group support, encouragement, and feedback. Will continue in IOP to maintain safety, stabilize mood, increase healthy coping, and improve functioning. Narrative Note: []
--- NOTE | 2024-01-29 10:10 | BH.SGPN.GN ---
Behaviors/Verbalizations/Mental Status: []Pt alert and oriented, neatly dressed and groomed. Eye contact good. Motor activity appropriate. Speech within normal limits. Affect flat, mood depressed. Thoughts linear, logical, no signs of hallucinations or delusions. Client Response/Progress/Benefit: []Pt active participant AEB pt providing input throughout group discussion. Showed engagement during small group discussions and worked with group on identifying how each defense mechanism can impact mental health and gave examples. Pt was engaged during small group discussion and expressed connecting with several of the defense mechanisms reviewed. Pt reported connecting with anticipation, projection, rationalization, suppression, displacement, and denial. ?Seemed to benefit from gaining awareness about the different defense mechanisms. Pt to continue IOP tx to prevent decompensation, improve daily functioning, and monitor medication changes. Narrative Note: []
--- NOTE | 2024-01-29 11:10 | BH.SGPN.GN ---
Behaviors/Verbalizations/Mental Status: []Pt alert and oriented, neatly dressed and groomed. Eye contact good. Motor activity appropriate. Speech within normal limits. Affect congruent, mood depressed. Thoughts linear, logical, no signs of hallucinations or delusions. Client Response/Progress/Benefit: [] Pt responded well to session, participating in activity and small group discussion. Group reviewed the rest of the defense mechanisms and discussed how these are adaptive, maladaptive, or somewhere in the ro. Pt participated in the experiential activity which encouraged pts to draw a castle that portrayed their different defense mechanisms. Pt's defense mechanisms included denial, suppression, projection, anticipation, and displacement. Pt stated she often displaces and projects on her spouse. Pt stated today she learned that ?I need to open up to my spouse and communicate my struggles and how I want to cope.? Pt listened to medicare nurse teach different skills to help pt?s cope with or change their defense mechanisms. Pt appeared to benefit from gaining insight to the different defense mechanisms and learning coping skills. Pt will continue IOP tx to prevent decompensation, improve daily functioning, and increase distress tolerance. ?? Narrative Note: []
--- NOTE | 2024-01-29 12:00 | PCM.BH.PN ---
Progress Note Progress Note: History of Present Illness/Interim History: The patient is a 48-year-old female with a history of bipolar 2 disorder, PTSD and anxiety who is seen in follow-up at the [facility] behavioral health [facility]. I last saw the patient 2 weeks ago and at that time her Seroquel was increased to 100 mg for bipolar 2 depression and anxiety. The patient took it for almost 2 weeks but states that she began having restless leg syndrome only at night and for this reason she had staff call me and we decrease the Seroquel back down to 50 mg at bedtime. She states that she was also more fatigued and felt less rested after sleeping when her restless leg syndromes got bad. She states that although she is overall depressed at times with sadness, hopelessness, worthlessness, low motivation, guilt, low energy. She feels that sometimes she is a little irritable and angry lately and feels all over the place. She denies any self-harm since a month ago. She still has occasional passive thoughts of and passive fleeting suicidal ideation several times a week. She denies active suicidal ideation, plan for suicide, homicidal ideation, hallucinations, delusions or recent hypomania. She continues to worry about getting a recurrence of her Hodgkin's lymphoma that she was told is acting or appears that it may be a non-Hodgkin's lymphoma. She is still seeing her sleep specialist for her insomnia. Current Psychiatric Medications: [] Armodafinil was increased to 250 mg every morning by her sleep doctor.; Seroquel 100 mg nightly for 12 days and then decrease yesterday to 50 mg p.o. nightly due to restless leg syndrome. Melatonin 10 mg p.o. nightly; hydroxyzine 25 mg p.o. up to 3 times a day as needed for anxiety; Klonopin 1 mg p.o. nightly and gabapentin high dose to treat her periodic limb movement disorder by her sleep doctor. Mental Status Examination: [] The patient is a 48-year-old female who appears normal for stated age and is casually dressed and groomed with good hygiene. She has no psychomotor agitation or retardation. Eye contact is good and speech is normal rate and rhythm and fluent with no pressure. Mood is erratic and down and irritable. Affect is full and normal today. Thought process is goal-directed and organized. Thought content: There is evidence of occasional passive thoughts of and fleeting, passive suicidal ideation. There is no evidence of active suicidal ideation, plan for suicide, homicidal ideation, hallucinations or delusions. Reality testing is intact. Judgment is intact. Insight fair but limited. Impulsivity moderate. Diagnoses: [] 1. Bipolar 2 disorder 2. Generalized anxiety disorder 3. PTSD 4. Periodic limb movement disorder 5. Chronic insomnia, obstructive sleep apnea, history of Hodgkin's lymphoma, hypothyroidism 6. Health concerns and work issues Plan: [] The patient will continue the IOP in behavioral health at [facility] as the structure, support, education and group therapy will hopefully prevent worsening of the patient's symptoms. She felt safe during the interview and if it anytime she does not feel safe she agrees to let us know or go to the emergency room. The patient will keep her Seroquel at only 50 mg p.o. nightly. Discussed with the patient that I am hesitant to add Trileptal since she is on such high doses of gabapentin already. Topamax is an option but is not a very good mood stabilizer and the patient has still significant depression. Since she is unable to tolerate higher doses of Seroquel we will try Vraylar for as treatment for bipolar mood disorders and as a mood stabilizer. She will continue to follow-up with her outpatient medical and psychiatric providers and I will see the patient in follow-up in 2 weeks.
--- NOTE | 2024-01-31 09:00 | BH.SGPN.GN ---
Behaviors/Verbalizations/Mental Status: []Eye contact fair. Motor activity appropriate. Speech within normal limits. Affect constricted, mood depressed. Thoughts linear, logical, no signs of hallucinations or delusions. Reviewed client?s symptom tracker, SI within baseline, denies plan, or intent. Client Response/Progress/Benefit: [] Client less engaged compared to previous group sessions, did appear to listen to others. Client stated she did not want to check-in this morning, dealing with ongoing stressor with her daughter. Client seemed to benefit from support from peers and getting out of the house by coming to IOP. Recommended continued IOP tx to challenge negative thoughts, increase use of healthy coping, and prevent decompensation. Client will meet with IOP individual therapist to process current emotions/stressor.
--- NOTE | 2024-01-31 11:10 | BH.SGPN.GN ---
Behaviors/Verbalizations/Mental Status: []Pt alert and oriented, casually dressed and groomed. Eye contact good. Motor activity appropriate. Speech within normal limits. Affect congruent, mood depressed. Thoughts linear, logical, no signs of hallucinations or delusions. Client Response/Progress/Benefit: []Pt responded well to session AEB completing the resilience worksheet provided. Pt participated in the discussion and worked cooperatively with group to identify strategies to enhance each of the components discussed. Pt reports belief they already use resilience trait of??self-awareness? and ?accept that change is a part of living?. Pt stated they would like to continue to develop resilience trait of ?Avoid seeing crises as insurmountable? as pt feels she would benefit from writing down the facts and analyzing them to identify what is within her control in the situation to be able to create an attainable coping plan. Pt seemed to benefit from discussing strategies for improving personal resilience and identifying resilience traits pt already possesses. Will continue IOP tx to prevent decompensation, improve daily functioning, and increase thought challenging and behavior activation skills.? Narrative Note: []
--- NOTE | 2024-01-31 13:30 | BH.MDN ---
Multi-Disciplinary Note Note 60-min Individual: Time Started:: 10:10 Date: 01/31/24 Purpose of session/treatment goals addressed:: Purpose session was to address goals 1 and 2 from MTP. Eye Contact:: Fair Motor Activity:: Restless Appearance:: Casual Speech:: Appropriate Mood:: Anxious and Depressed Affect:: Constricted Thoughts:: Linear, Logical and No evidence of hallucinations/delusions noted Staff Interventions:: thought challenging, motivational interviewing, CBT techniques, mindfulness skills, strengths perspective, goal setting and taught coping skills Client Response:: Client stated she has been struggling recently because she is not being nice to herself. Client reported is not helpful but her daughter currently is lashing out to others due to her daughter's current downward spiral. Client stated her daughter's actions and behavior are negatively impacting her own. Client reported she starting to recognize that she needs to set boundaries with her daughter because it has not helping client's own mental health. Client reported that she is having a hard time watching her daughter go through this and not being able to help. Client reported yesterday she was consumed by all the worries with this new stressor. Client stated despite being consumed by worry she was able to stick with getting her house chores complete and go to the grocery store. Client stated she has been really focused on trying to get at least 1 thing done as discussed in previous individual sessions. Client stated she is also making a connection that when she has increased stress her ability to remember things that goes down greatly. This cycle plays off each other because then she can remember things which is frustrating as to her stress. Client identified that she is feeling more depressed and having difficult time feeling hopeful. Client stated she has been having passive thoughts of but denies any active thoughts and has been able to work through the negative thoughts. Client stated the negative self-deprecating thoughts are increasing which then result in her remaining on negatives and what it is. Client open to working with therapist to challenge negative thought patterns and focus on what she is accomplishing. Discussed the importance of setting boundaries with daughter. Reviewed pros and cons of setting boundaries with her daughter. Client recognizes that she does not set boundaries with her daughter it is going to deteriorate her own mental health. Client also is to increase identifying wins each day and focus on behavior activation to help her stick with engaging with others and doing things that she enjoys to combat this current depressed mood. Risks/Concerns:: Client does report passive thoughts of recently. Denies current active suicidal thoughts, plan, intention. Future oriented. Client identifies protective factors to be her family and desire to live. Progress Toward Goals/Plan:: Decompensation noted with client reporting increased depression, decreased hopefulness, and passive thoughts of . Client has been faced with a significant stressor of watching her daughter starting to spiral and client is also being treated poorly by her daughter. Client's negative and self-deprecating thoughts have increased since the stressor which has made it more challenging for client to engage in things that she enjoys. Plan is for client to continue IOP to challenge negative thought patterns, set boundaries with daughter, increase daily activity, and prevent decompensation. Time Stopped:: 11:05
--- NOTE | 2024-02-04 11:15 | BH.SGPN.GN ---
Behaviors/Verbalizations/Mental Status: []Pt alert and oriented, neatly dressed and groomed. Eye contact good. Motor activity appropriate. Speech within normal limits. Affect congruent, mood irritable. Thoughts linear, logical, no signs of hallucinations or delusions. Client Response/Progress/Benefit: [] Pt was an active participant in group discussions and experiential activity. Attentive during psychoeducation on the 4 A's (Avoid, adapt, alter, accept) of coping with stress. Shared that they would benefit most from accepting and avoiding certain stressors with her daughter. Pt stated, ?it?s out of my control.? Was able to identify the connection between the experiential activity and utilization of stress management skills. Benefited from increased awareness of stress management strategies. Pt will continue IOP tx to promote mood stability, combat distortions, and increase distress tolerance skills. Narrative Note: []
--- NOTE | 2024-02-04 14:30 | BH.MDN_ITS ---
Multi-Disciplinary Note Note 45-min Individual: Time Started:: 09:02 Date: 02/04/24 Purpose of session/treatment goals addressed:: Purpose session was to address goals 1 and 2 from MTP. Eye Contact:: Fair Motor Activity:: Restless Appearance:: Casual Speech:: Appropriate Mood:: Anxious and Depressed Affect:: Constricted Thoughts:: Linear, Logical and No evidence of hallucinations/delusions noted Staff Interventions:: thought challenging, CBT techniques, mindfulness skills, strengths perspective, goal setting and taught coping skills Client Response:: Client stated she feels emotionally drained because she had a challenging weekend. Client reported she is getting numerous external stressors of trying to focus and was within her control regards to her 1 daughters relationship and self-destructive behavior decision. Stated another stressor was her 2 grandchildren got hurt on 2 different days over the weekend. Client stated she also opened up to her and was honest about the credit card she had opened up in his name. Client reported overall her responded well to the situation in problem solved with her on what to do about it. Client stated they came up with a game plan to help decrease her impulsive spending and to get rid of the credit cards. Client reported yesterday she thinks with everything that went on over the weekend she is feeling more overwhelmed and more irritable. Client stated she got upset with her and felt like he was ignoring her request. Client reported she did recognize that she started to spiral however once she started having negative thought patterns she struggled with utilizing any health healthy coping skills. Client reported she attempted to use healthy coping skills earlier in the day but by evening she was telling herself what is the point. Client stated she did end up self-harming. Client expressed frustration with herself because she recognizes she does have healthy coping options but unfortunately stated she continues to go to her unhealthy coping skill of self-harm. Client stated her made a comment that it seems she starts to spiral the day before coming to IOP. Client reported she realizes when she thought back she is to spiral and struggle the night before she has to go to work. Client stated she is unsure what results in more just self-destructive behavior the night before IOP because she knows it ends up helping her when she comes. Client reported she recognizes it could be knowing she will be talking about how she feels which is something that does not and her typical comfort zone. Client stated she also has noticed that she is more volatile towards her when feeling overwhelmed. Therapist encouraged client to start to think about a new routine when if the night before her IOP or when she returns to work. Discussed that could be helpful for client to focus on more self-care items and engaging in activities that she knows she enjoys to do with her . Therapist also helped and client encouraged client to reframe her view of self harm from shame to looking at self-harm as had serving a purpose in the past and a survival skill. Discussed the importance of reframing the unhealthy coping skill to something that she needed for time. But now realizing that she has different tools that would be more beneficial for her to use. Therapist encouraged client to complete a pros and cons list and put it with her item that she is still self- harm. Also discussed possibly creating a calming box that she can put near the object that she uses to self-harm with as a visual cue to try something differ ent. Client receptive to these strategies and ideas and willing to follow through with trying them. Risks/Concerns:: Denies active suicidal ideation, plan, or intention. Passive thoughts of recently but denies intention to act on thoughts. Client future oriented. Client identifies family as protective factors. Progress Toward Goals/Plan:: Progress variable. Client has been faced with numerous medication complications that has led to difficulty with finding a mood stabilizer that does not provide side effects. Client did not start any medication last week and thus far reports no side effects. Client stated she does feel like her moods are all over the place and is engaging in some unhealthy coping skills at times. Client stated she does feel anxious despite medication complications she has been trying to use skills of small daily goals, improved communication, and asking for what she needs from her supports. Client has had moments in which she reverted back to utilization of unhealthy coping as a way to manage emotional distress. Client to continue IOP to improve distress tolerance, increase utilization of healthy coping skills, and prevent decompensation. Time Stopped:: 09:42
--- NOTE | 2024-02-05 09:05 | BH.SGPN.GN ---
Behaviors/Verbalizations/Mental Status: [] Eye contact good. Motor activity appropriate. Speech within normal limits. Affect congruent, mood dysthymic and irritable. Thoughts linear, logical, no signs of hallucinations or delusions. Reviewed client?s symptom tracker, SI within baseline, denies plan, or intent as of 02/05/2024. Client Response/Progress/Benefit: [] Client receptive of session, attentive and willing to process with group. Identified mental health ?wins? today as following through with setting some boundaries and keeping her distance from her adult daughter while she processes her frustrations with her daughter's recent decisions. Shared an additional win as making plans to reconnect with a friend she has not spent time with since her mental health began to decline. Reports telling her about the plans to help hold her accountable. Identified current stressor as struggling to decide whether to attend her grandchildrens' spring concert as she does not want to have to see her daughter while there. Receptive of suggestions by the group and did well to identify what is in her control that she can do such as limiting conversation or sitting in a different part of the auditorium. Recommended continued IOP tx to continue to improve mood stability, promote continued application of boundaries, and prevent decompensation. Narrative Note: []
--- NOTE | 2024-02-05 10:10 | BH.SGPN.GN ---
Behaviors/Verbalizations/Mental Status: []Eye contact is fair. Motor activity is appropriate. Appearance is casual. Speech is Appropriate. Mood is anxious. Affect is congruent. Thoughts are linear and logical. No evidence of psychosis. Client Response/Progress/Benefit: [] Pt was an engaged participant AEB listening attentively to others, taking notes, and providing feedback in small group discussions. Attentive during psychoeducation AEB by note taking and providing some input. Pt worked along with peers in small groups to define inappropriate guilt and appropriate guilt. Interactive discussion on examples of both inappropriate and appropriate guilt. Pt able to connect impact inappropriate guilt can have on MH. Pt gave an example of not being able to manage her mental illness on her own as inappropriate guilt. Benefited from increased awareness of guilt and the differences between appropriate and inappropriate guilt. Will continue in IOP to improve mood stabilization, increase healthy coping, and prevent decompensation.
--- NOTE | 2024-02-05 10:10 | BH.SGPN.GN ---
Behaviors/Verbalizations/Mental Status: [] Eye contact is good. Motor activity is appropriate. Appearance is casual. Speech is Appropriate. Mood is dysthymic. Affect is congruent. Thoughts are linear and logical. No evidence of psychosis. Client Response/Progress/Benefit: [] Pt receptive to session AEB contributing to small group discussion, as well as listening attentively to others, and taking notes. Worked with group to brainstorm the positive and negative aspects of stress on physical and mental health as well as the impact of distress on performance, relationships, and mental health. Pt shared her top stressors to be: Returning back to work after leave of absence, worries about her child self-destruction, and managing her mental health diagnoses along with medications. Shared when feeling overwhelmed with stress she tends to lash out, shut down, self harm, suicidal thoughts, negative self-talk, and avoidance. Benefited from increased awareness of positive and negative stress as well as how stress impact individuals. Will continue in IOP to stabilize moods, challenge distortions, and increase utilization of healthy coping skills more consistently, and prevent decompensation.
--- NOTE | 2024-02-05 11:08 | BH.SGPN.GN ---
Behaviors/Verbalizations/Mental Status: []Pt alert and oriented, casually dressed and groomed. Eye contact good. Motor activity appropriate. Speech within normal limits. Affect congruent, mood dysthymic. Thoughts linear, logical, no signs of hallucinations or delusions. Client Response/Progress/Benefit: []Pt engaged participant AEB listening attentively to others and providing input throughout group. Pt worked within their small group to identify strategies to manage inappropriate guilt. Identified a personal example of inappropriate guilt as having a mental illness and not being able to manage it on her own. Insight cues a personal stigma and shame towards self. Pt wants to work on combatting inappropriate guilt by reminding herself she has a medical condition and there are supports available. Pt seemed to benefit from learning about strategies to manage appropriate and inappropriate guilt. Pt will continue IOP tx to prevent decompensation, improve daily functioning, and improve self-compassion. Narrative Note: []
--- NOTE | 2024-02-07 09:00 | BH.SGPN.GN ---
Behaviors/Verbalizations/Mental Status: [] Pt alert and oriented, neatly dressed and groomed. Eye contact good. Motor activity appropriate. Speech within normal limits. Affect congruent, mood euthymic. Thoughts linear, logical, no signs of hallucinations or delusions. Reviewed pt?s symptom tracker, no risk for suicidal ideation, plan, or intent 02/07/24 Client Response/Progress/Benefit: []Pt responded well to session, attentive and engaged. Pt reports on the daily symptom tracker less depression, anxiety, and SI today. Pt also reports her mood and functioning is better this week. Pt's mood today is grateful today as pt got to spend the day with her son yesterday without distraction of her phone and stuff going on with my daughter. Pt also gets to see her grandkids [place] which pt is excited about. Pt's stressor today is the ongoing conflict with her daughter, but pt is trying to focus on what is in her control. Pt appeared to benefit from reflecting on her progress. Pt will continue IOP tx to promote mood stability, combat distortions, and improve distress tolerance. Narrative Note: []
--- NOTE | 2024-02-07 10:10 | BH.SGPN.GN ---
Behaviors/Verbalizations/Mental Status: [] Eye contact is good. Motor activity is appropriate. Appearance is casual. Speech is Appropriate. Mood is euthymic. Affect is full. Thoughts are linear and logical. No evidence of psychosis Client Response/Progress/Benefit: [] Client was an active participant during interactive group discussions. Attentive during psychoeducation on the six types of boundaries (physical, emotional, intellectual, sexual, time, and material) AEB note-taking and input in group discussions. Along with peers contributed to interactive discussion on defining what a boundary is in mental health. Client along with peers identified challenges to setting boundaries which included; fear of conflict, being uncomfortable, believing they are being rude or mean, etc. Client along with peers identified the benefits to setting boundaries such as healthier relationships, stronger sense of self, and improved confidence. Client benefited from increased awareness and insight on the importance/benefit to setting health boundaries. Will continue in IOP to prevent decompensation, maintain safety, and increase healthy coping. Narrative Note: []
--- NOTE | 2024-02-07 11:10 | BH.SGPN.GN ---
Behaviors/Verbalizations/Mental Status: [] Eye contact is good. Motor activity is restless. Appearance is casual. Speech is Appropriate. Mood is euthymic. Affect is constricted. Thoughts are linear and logical. No evidence of psychosis. Client Response/Progress/Benefit: [] Client responded well to session AEB listening attentively to peers, providing some input, as well as taking notes throughout. Client contributed throughout psychoeducation on different boundary setting styles. Participated in group discussion brainstorming various strategies for improving healthy boundary settings, as a group identified starting with easy/small boundaries, opening up to one trusted person and not overly apologizing as strategies to try. Seemed to benefit from increased awareness of how different boundary styles can impact mental health. Will continue IOP tx to improve mood stability, increase consistent use of healthy coping skills, and prevent decompensation.
--- NOTE | 2024-02-11 09:05 | BH.SGPN.GN ---
Behaviors/Verbalizations/Mental Status: [] Pt alert and oriented, neatly dressed and groomed. Eye contact good. Motor activity appropriate. Speech within normal limits. Affect congruent, mood depressed. Thoughts linear, logical, no signs of hallucinations or delusions. Reviewed pt?s symptom tracker, no risk for suicidal ideation, plan, or intent 02/11/24 Client Response/Progress/Benefit: [] Pt responded well to session, attentive and engaged. Pt reports feeling mentally fatigued this morning. Pt shared I'm tolerating my meds, but I'm anxious. Pt stated her irritability and anxiety have been higher recently, but pt feels this could be due to ongoing conflict with her daughter. Pt stated her daughter is using my grandkids as dayana which makes pt feel very sad, but pt is working through this and trying to focus on what is in her control, per her report. Pt's mental health win today is that she used opposite action and took a walk yesterday, she wore shorts today despite shame from self-harming, and she watched her [employer] game. Pt appeared to benefit from connecting with peers and getting feedback. Pt will continue IOP tx to prevent decompensation, increase the use of healthy coping skills, and combat distortions. Narrative Note: []
--- NOTE | 2024-02-11 10:05 | BH.SGPN.GN ---
Behaviors/Verbalizations/Mental Status: [] Client alert and oriented, casually dressed and groomed. Eye contact good. Motor activity appropriate. Speech within normal limits. Affect congruent, euthymic. Thoughts linear, logical, no signs of hallucinations or delusions. Client Response/Progress/Benefit: [] Client was an active participant, AEB taking notes and providing input in group discussions and activities. Attentive during psychoeducation. Client engaged during interactive discussion in which the group defined self-care and discussed its benefits. Group discussed barriers to engaging in self-care. Group members together came up with guilt, anxiety, and feeling weak as barriers to engage in self care. Client participated in small groups where they worked to identify common self-care ?myths?. Benefited from increased awareness of self-care, its benefits, and the consequences of not utilizing self-care strategies. Will continue IOP tx toincrease self worth, promote healthy coping skill application, and continue to improve mood stability. Narrative Note: []
--- NOTE | 2024-02-11 11:05 | BH.SGPN.GN ---
Behaviors/Verbalizations/Mental Status: [] Client alert and oriented, casually dressed and groomed. Eye contact good. Motor activity appropriate. Speech within normal limits. Affect congruent, mood euthymic. Thoughts linear, logical, no signs of hallucinations or delusions. Client Response/Progress/Benefit: [] Client engaged participant AEB completing self-assessment of current self care and providing input throughout discussion. Client completed worksheet identifying current self-care practices and what self-care activities client wants to start using. Client selected social self-care to begin practicing more consistently. Client plans to do this by having regular date nights her with spouse. Appeared to benefit from completing the self-care evaluation and gaining insights into current self-care practices, as well as identifying areas in which client would like to improve upon. Client will continue IOP tx to prevent decompensation and increase emotional regulation skills. Narrative Note: [] Behaviors/Verbalizations/Mental Status: [] Client alert and oriented, casually dressed and groomed. Eye contact good. Motor activity appropriate. Speech within normal limits. Affect congruent, mood euthymic. Thoughts linear, logical, no signs of hallucinations or delusions. Client Response/Progress/Benefit: [] Client engaged participant AEB completing self-assessment of current self care and providing input throughout discussion. Client completed worksheet identifying current self-care practices and what self-care activities client wants to start using. Client selected social self-care to begin practicing more consistently. Client plans to do this by having regular date nights her with spouse. Appeared to benefit from completing the self-care evaluation and gaining insights into current self-care practices, as well as identifying areas in which client would like to improve upon. Client will continue IOP tx to prevent decompensation and increase emotional regulation skills. Narrative Note: []
--- NOTE | 2024-02-14 10:15 | BH.SGPN.GN ---
Behaviors/Verbalizations/Mental Status: []Eye contact is good. Motor activity is appropriate. Appearance is casual. Speech is Appropriate. Mood is content. Affect is congruent. Thoughts are linear and logical. No evidence of psychosis. Client Response/Progress/Benefit: [] Pt was an active participant in activity and taking notes during group discussion. Attentive during psychoeducation and interactive discussion on coping skills included why people use unhealthy skills. Group came up with list of unhealthy coping skills and pt identified personal ones as avoidance, lashing out, and spending. Group discussed the effects of how unhealthy coping skills can impact mental health in a negative way. Participated during experiential activity and was able to relate the activity to group topic regarding the benefits of developing strong internal and external support system. Benefited from increased understanding of unhealthy coping skills and the need for developing healthy internal and external coping skills. Pt will continue IOP tx to prevent decompensation, promote mood stability, encourage continued communication with supports, and improve daily functioning. ? Narrative Note: []
--- NOTE | 2024-02-14 11:15 | BH.SGPN.GN ---
Behaviors/Verbalizations/Mental Status: []Pt alert and oriented, casually dressed and groomed. Eye contact good. Motor activity appropriate. Speech within normal limits. Affect congruent, mood euthymic. Thoughts linear, logical, no signs of hallucinations or delusions. Client Response/Progress/Benefit: [] Pt responded well to session, taking notes and contributing when prompted. Group discussed the different categories of coping skills which included distraction, emotional release, grounding, self-love, and thought challenging. Pt participated in creating a coping skills ?menu? from the five categories of coping skills. Pt's coping skill menu included: journaling, counseling, temperature change, engage in activities enjoy, and delay, distraction, and decide. Appeared to benefit from increasing repertoire of healthy coping skills. Will continue IOP to improve mood stability, improve view of self, and prevent decompensation.
--- NOTE | 2024-02-14 13:32 | BH.MDN ---
Multi-Disciplinary Note Note 45-min Individual: Time Started:: 09:00 Date: 02/14/24 Purpose of session/treatment goals addressed:: Purpose of session was to address goals 1 and 2 from MTP. Eye Contact:: Fair Motor Activity:: Appropriate Appearance:: Casual Speech:: Appropriate Mood:: Anxious and Dysthymic Affect:: Constricted Thoughts:: Linear, Logical and No evidence of hallucinations/delusions noted Staff Interventions:: thought challenging, CBT techniques, mindfulness skills, strengths perspective, goal setting and taught coping skills Client Response:: Client reported she started noticing herself getting more irritable and argued with her on Saturday. Client stated she has started to connect that on Saturday evenings are the most difficult time for her when it is time to transition to the week. Client stated she typically gets more agitated and starts fights. Client stated she also tends to have more negative thoughts or self harms on Saturday or Mondays. Client reported this past Saturday she did have passive thoughts of for about an hour but she was able to distract herself and cope with the thoughts. Client noted despite having passive thoughts of she notes this is a decrease in intensity and frequency. Client reported she does feel like she wants needs to see IOP psychiatry next week because she is having some increase with physical anxious symptoms. Client also noted medication change might be helpful because her moods are still switching frequently. Client reported she has been doing better with not been impulsively because she does not have any credit cards and has been able to manage those urges. Client stated that she also thinks coming clean with her about her credit card spending has been helpful to keep her in check. Client and therapist discussed could be helpful for client to develop a structured routine on Sundays so that she has less downtime and can check in with herself more frequently to help with that downward spiral that she has been noticing. Client agreeable to identify routine and potentially talk to her about spending more time together with playing games. Risks/Concerns:: Denies suicide ideation, plan, intention. Future oriented. Progress Toward Goals/Plan:: Slight decompensation noted with client reporting increased irritability, starting arguments with her , and reporting passive thoughts of on Saturday. Client can note progress with being able to work through her passive thoughts of and refraining from spending impulsively. Client has picked up on a pattern in which she starts to struggle or go downhill usually on Sundays or Mondays. It is for client to start to work on developing a structure for Sundays and Mondays to help with her mood and help catch any potential downward spiral. Client is to also talk to her about this pattern so that he is aware he can also look out for any signs or symptoms. Client to continue IOP to improve mood stability, continue lysing skills to manage depressed thoughts, and prevent decompensation. Time Stopped:: 09:45
--- NOTE | 2024-02-18 09:05 | BH.SGPN.GN ---
Behaviors/Verbalizations/Mental Status: [] Eye contact is good. Motor activity is appropriate. Appearance is casual. Speech is Appropriate. Mood anxious. Affect is congruent. Thoughts are linear and logical. No evidence of psychosis. Reviewed daily check in sheet and no reports of suicidal ideations or intent. Client Response/Progress/Benefit: [] Pt was an active participant in group discussions. Attentive. Daily symptom tracker notes 09/27 for anxiety, depression,and irritability. Shared on going psychosocial stressors which continue to impact her sleep and family relationships. Able to reframed the events and is attempting to utilize these stressors to practice skills learned in IOP specifically mindfulness and thought challenging. She struggles with feelings of guilt which can lead to significant depression, anxiety, or self-blame in the past. She has reported increased awareness and insight of triggers to certain thoughts and emotions which has led to acceptance of certain events and strategies to cope. I was actually able to laugh this weekend and not feel guilty about having fun. Progress noted. Benefited from group support, encouragement, and feedback. Will continue in IOP to maintain safety, stabilize mood, and improve functioning to return to work. Narrative Note: []
--- NOTE | 2024-02-18 10:15 | BH.SGPN.GN ---
Behaviors/Verbalizations/Mental Status: []Eye contact is good. Motor activity is appropriate. Appearance is casual. Speech is Appropriate. Mood is euthymic. Affect is congruent. Thoughts are linear and logical. No evidence of psychosis. Client Response/Progress/Benefit: [] Pt was actively engaged, providing input at times, and taking notes throughout session. Connected with the topic of pitfalls and listened to group discussion on internal and external barriers that prevent from choosing a healthier path to mental wellness. Group worked together to identify examples of personal internal pitfalls and pt identified theirs as shutting down, isolating, and not asking for help. Pt benefited from group as pt learned to better identify and normalize potential barriers to improving mental health symptoms. Pt also gained awareness of the difference between external triggers and self-sabotaging behaviors. Will continue in IOP to promote gains, improve daily functioning, and help pt transition back to work. Narrative Note: []
--- NOTE | 2024-02-18 11:15 | BH.SGPN.GN ---
Behaviors/Verbalizations/Mental Status: []Pt alert and oriented, casually dressed and groomed. Eye contact good. Motor activity appropriate. Speech within normal limits. Affect congruent, mood euthymic. Thoughts linear, logical, no signs of hallucinations or delusions. Client Response/Progress/Benefit: [] Pt receptive of session, engaged throughout AEB actively contributing and listening to discussion, as well as taking notes. Pt participated in the experiential activity and processed with group how their emotions, perspective, and reactions positively and negatively impacted the outcome. Pt identified pitfalls they struggle with and shared wanting to work on pitfall of lack of negative self-talk by practicing positive affirmations daily. Benefited from identifying personal pitfalls and strategies to overcome these pitfalls. Will continue IOP tx to prevent decompensation, further improve daily functioning, and promote ongoing application of healthy coping skills. Narrative Note: []
--- NOTE | 2024-02-19 09:05 | BH.SGPN.GN ---
Behaviors/Verbalizations/Mental Status: [] Eye contact is good. Motor activity is appropriate. Appearance is casual. Speech is Appropriate. Mood is euthymic. Affect is full. Thoughts are linear and logical. No evidence of psychosis. Reviewed daily check in sheet and no reports of suicidal ideations or intent. Client Response/Progress/Benefit: [] Pt was an active participant in group discussion. Attentive. Daily symptom tracker notes 2/5 for anxiety and /5 for depression. Pt states that she has the jitters that IOP is coming to an end. Able to identify significant improvement during her time in IOP and feels that her medications are helping. Briefly shared medication struggles for several weeks prior to and while in IOP. Utilizing skills, challenging negative, thoughts, engaged socially, and reports increase confidence. 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 She is anxious as she has been on leave for 2 months, however is confident that she is ready to try. She has received positive feedback from her on her progress which was very satisfying. Progress noted. Will continue in IOP to prevent decompensation, stabilize mood, increase healthy coping, and improve functioning to return to work. Narrative Note: []
--- NOTE | 2024-02-19 10:10 | BH.SGPN.GN ---
Behaviors/Verbalizations/Mental Status: []Client alert and oriented, casually dressed and groomed. Eye contact good. Motor activity appropriate. Speech within normal limits. Affect congruent, mood euthymic. Thoughts linear, logical, no signs of hallucinations or delusions. Client Response/Progress/Benefit: []Pt engaged in session AEB listening attentively to others and providing input throughout. Pt engaged in activity, able to connect how it can be uncomfortable and difficult to accept when things are out of one?s own control. Pt worked with group to identify what things in life can be hard to accept. Group identified things hard to accept as: change, loss of relationship, mental health diagnosis, other?s behaviors, and finances. Pt identified struggling to accept that sometimes she needs to ask for help and the importance of being vulnerable to others. Seemed to benefit from increased awareness of importance of acceptance. Pt to continue IOP tx to further improve mood stability, application of healthy coping skills, and prevent decompensation.
--- NOTE | 2024-02-19 11:10 | BH.SGPN.GN ---
Behaviors/Verbalizations/Mental Status: []Pt alert and oriented, neatly dressed and groomed. Eye contact good. Motor activity appropriate. Speech within normal limits. Affect congruent, mood euthymic. Thoughts linear, logical, no signs of hallucinations or delusions. Client Response/Progress/Benefit: [] Pt responded well to session AEB taking notes and contributing to discussion throughout. Pt engaged as group continued discussion on acceptance and the mental health benefits of practicing acceptance. Pt and peers identified what makes acceptance challenging and pt completed a self-reflection exercise on what is hard to accept in pt's life. Pt identified what is hard to accept in life and how it makes things harder when resists acceptance. Pt reports it is hard to accept that ?I need to open up about my mental health.? Group identified strategies to increase acceptance and pt wants to work on self-talk statements like ?I am capable, I deserve to be supported, and I am surrounded by love.? Pt appeared to benefit from gaining insight and learning strategies to increase acceptance. Pt will continue IOP tx to promote gains, combat distortions, and improve daily functioning. ? Narrative Note: []
--- NOTE | 2024-02-19 11:44 | PCM.BH.PN ---
Progress Note Progress Note: History of Present Illness/Interim History: The patient is a 48-year-old , female with a history of bipolar 2 disorder, PTSD and anxiety who is seen in follow-up at the [facility] behavioral health [facility]. I last saw the patient 3 weeks ago and at that time due to side effects of RLS on Seroquel it was decreased and we added Vraylar. The patient is tolerating the Vraylar well with no side effects. She feels she is improving on the Vraylar and her mood is much more stable and she is less depressed and less irritable and angry. She is sleeping through the night now but does not feel rested. The patient has a long history of insomnia and sleep issues and does see a sleep specialist for this. She denies self-harm, passive thoughts of , suicidal ideation, homicidal ideation, hallucinations or delusions or hypomania. She still has some worry about getting a recurrence of her Hodgkin's lymphoma. She was using her CPAP about 85% of the time but this still does not feel rested the next day but they are date armodafinil from her sleep specialist does help with her energy level. Current Psychiatric Medications: [] Vraylar 1.5 mg p.o. daily (x 3 weeks); Seroquel 50 mg p.o. nightly (decreased 3 weeks ago); armodafinil 250 mg p.o. every morning; melatonin 10 mg p.o. at bedtime;: Klonopin 1 mg p.o. nightly and high-dose gabapentin to treat her periodic limb movement disorder. Mental Status Examination: [] Patient is a 48-year-old female who appears normal for stated age and is casually dressed and groomed with good hygiene. She has no psychomotor agitation or retardation and is ambulatory with a normal gait. Speech is normal rate and rhythm and fluent with no pressure and eye contact is good. Mood is less depressed and irritable than before. Affect is full and normal. Thought processes goal-directed and organized. Thought content: There is no evidence of passive thoughts of , suicidal ideation, plan for suicide, homicidal ideation, hallucinations or delusions. Reality testing is intact. Judgment is intact. Insight is fair and improving. Impulsivity is moderate. Diagnoses: [] 1. Bipolar 2 disorder 2. Generalized anxiety disorder 3. PTSD 4. Periodic limb movement disorder 5. Chronic insomnia, obstructive sleep apnea, history of Hodgkin's lymphoma, hypothyroidism 6. Health concerns and work issues Plan: [] The patient will continue the IOP program although she may discharge soon if she keeps maintaining and making progress. She felt safe during the interview and if it anytime she does not feel safe she agrees to let us know or go to the emergency room. The patient agrees to discontinue her Seroquel at this time. We will increase the Vraylar to 3 mg p.o. daily and a prescription is sent in for this. All other medications will stay the same. She will continue to follow-up with her outpatient doctors and I will see the patient in follow-up while she is in the IOP.
--- NOTE | 2024-02-21 09:05 | BH.SGPN.GN ---
Behaviors/Verbalizations/Mental Status: [] Eye contact good. Motor activity appropriate. Speech within normal limits. Affect congruent, mood content. Thoughts linear, logical, no signs of hallucinations or delusions. Reviewed client?s symptom tracker, denies SI, plan, or intent as of 02/21/2024. Client Response/Progress/Benefit: [] Client receptive of session, attentive and willing to process with group. Identified mental health ?wins? today as ?continuing to remain consistent with her boundaries with her daughter and discussed reminding herself of the mental health benefits of doing so to ensure follow-through. Additional win noted as following through with going to an interview despite feeling nervous about doing so. Shared using opposite action, deep breathing, and positive self-talk to follow-through with this. Noted this is also her stressor as she waits to hear back about whether or not she will be offered the position. Receptive of and appeared to benefit from supportive feedback and suggestions from the group. Recommended continued IOP tx to continue to improve mood stability, promote consistency of skill application, and prevent decompensation. Narrative Note: []
--- NOTE | 2024-02-21 11:15 | BH.SGPN.GN ---
Behaviors/Verbalizations/Mental Status: []Client alert and oriented, casually dressed and fairly groomed. Eye contact good. Motor activity appropriate. Speech within normal limits. Affect congruent, mood depressed, anxious. Thoughts linear, logical, no signs of hallucinations or delusions. Client Response/Progress/Benefit: []Pt was engaged throughout AEB contributing to group discussion and self-reflection. Group finished processing cues to anger worksheet. Pt contributed as group brainstormed healthy coping skills for better managing anger which included: music, walking/exercise, taking a break, reflection, and journaling. Attentive in discussion about identifying personal anger cycle and. Stated will work on exercise and walking away as skills/strategies to prevent unhealthy anger response. Pt appeared to benefit from identifying different techniques to manage anger as well as gaining awareness of potential consequences of unmanaged anger. Pt to continue IOP to promote use of healthy coping skills, challenge negative/distorted thoughts, and prevent decompensation.
--- NOTE | 2024-02-21 13:33 | BH.MDN_ITS ---
Multi-Disciplinary Note Note 45-min Individual: Time Started:: 08:15 Date: 02/21/24 Purpose of session/treatment goals addressed:: Session Was to Address Goals 1 and 2 from [facility]. Eye Contact:: Good Motor Activity:: Restless Appearance:: Casual Speech:: Appropriate Mood:: Anxious Affect:: Constricted and Congruent Thoughts:: Linear, Logical and No evidence of hallucinations/delusions noted Staff Interventions:: thought challenging, CBT techniques, mindfulness skills, strengths perspective, goal setting, taught coping skills and other (Problem solving) Client Response:: Client reported since we last talked she has not had any self-harm and has not had any urges. Client reported she is continuing to do with drama with her daughter still sending nasty text to client. Client reported she is overall hanging this stressor more effectively than usual. Client reported overall she is feeling like her medications are good right now except for feeling some slight dizziness. Client stated she has established with Dr. Lagunas for psychiatry at the end of March. Client states she has a individual counseling appointment on March 03 with Kika Ugarte. Client reported feeling better that she has aftercare established now. Client reported she does have plans to meet with a friend tomorrow. Client reported she is feeling anxious about this but recognizes she needs to get back to being social. Client has been utilizing healthy coping skills to help manage mood stability. Risks/Concerns:: Denies suicidal ideation, plan, or intention. Client has not self-harmed since her last time. Progress Toward Goals/Plan:: Progress note with client being able to utilize healthy coping skills to manage negative thoughts refraining from self- harm and reporting ability to manage stressful situation with her daughter. Client is to continue IOP to maintain stability, continue utilizing healthy coping skills to manage depressed and anxious thoughts, and prevent decompensation. Time Stopped:: 09:00
== END 2024-02-21 23:59 ==
LOC: BHIOP 06:34
PROVIDERS: PCP Nurse Practitioner Family; Referring Provider Psychiatry & Neurology Psychiatry; Visit Provider Psychiatry & Neurology Psychiatry
DX: F31.81 Bipolar II disorder (principal); F41.1 Generalized anxiety disorder; F43.10 Post-traumatic stress disorder, unspecified; G47.33 Obstructive sleep apnea (adult) (pediatric); E03.9 Hypothyroidism, unspecified; G47.61 Periodic limb movement disorder; G47.00 Insomnia, unspecified; C81.90 Hodgkin lymphoma, unspecified, unspecified site; Z79.899 Other long term (current) drug therapy
CPT/HCPCS: S9480; 90834; 90837; 90853

== ENCOUNTER 2024-02-24 08:10 | Outpatient (RCR) | payer OTHER, SELFPAY ==
--- NOTE | 2024-02-21 10:10 | BH.SGPN.GN ---
Behaviors/Verbalizations/Mental Status: [] Eye contact is good. Motor activity is appropriate. Appearance is casual. Speech is Appropriate. Mood is anxious. Affect is full. Thoughts are linear and logical. No evidence of psychosis Client Response/Progress/Benefit: [] Pt responded well to session AEB contributing to small group discussion, taking notes, and listening attentively to others. Participated during interactive discussion in which pt and peers defined anger and discussed the benefits of managed anger and anger as a secondary emotion. Group identified several emotions which can drive anger which included; pain, confusion, jealously, regret, loss, embarrassment, and exhaustion. Appeared to benefit from increased knowledge of the anger cycle as well as personal triggers. Will continue IOP to prevent decompensation, stabilize mood, and increase healthy coping. Narrative Note: []
[2024-02-22 01:12] VITALS: BP 150/86; PULSE 76
--- NOTE | 2024-02-24 09:05 | BH.SGPN.GN ---
Behaviors/Verbalizations/Mental Status: [] Eye contact is good. Motor activity is appropriate. Appearance is casual. Speech is Appropriate. Mood is euthymic. Affect is full. Thoughts are linear and logical. No evidence of psychosis. Reviewed daily check in sheet and no reports of suicidal ideations or intent. Client Response/Progress/Benefit: [] Pt was an active participant in group discussion. Attentive. Daily symptom tracker notes 09/27 for depression, anxiety, and irritability. Shared with the group that today is her last day in [facility]. Pt is set to discharge successfully today. She briefly discussed her progress while in [facility] level of care. Has encounter significant psychosocial stressors in the past month which she used as a way to practice skills learned in [facility]. Discussed frequently used skills, the benefits of trigger awareness, and the role of behavior activation in her progress. Feels accomplished today. Aftercare plans are established as she has follow up with therapist and psychiatrist. Benefited from group support,encouragment, and feedback. Will be discharged from [facility] this afternoon. Narrative Note: []
--- NOTE | 2024-02-24 11:15 | BH.SGPN.GN ---
Behaviors/Verbalizations/Mental Status: []Pt alert and oriented, neatly dressed and groomed. Eye contact good. Motor activity appropriate. Speech within normal limits. Affect congruent, mood euthymic. Thoughts linear, logical, no signs of hallucinations or delusions. Client Response/Progress/Benefit: [] Pt was an active participant AEB pt providing input and listening attentively to peers. Attentive during psychoeducation on mindfulness coping skills and their impact on reducing anxiety and improving overall mental health wellness. Group was able to identify self-soothing and mind-based coping skills which included: 5-senses, meditation, deep breathing, TIPP, thought challenging, and progressive muscle relaxation. Pt also participated with peers in practicing mindfulness skills in session. Pt would like to work on deep breathing, opposite action, and thought challenging to help manage anxiety. Appeared to benefit from increasing repertoire of anxiety reduction skills. Pt will discharge from IOP tx today as pt has accomplished her tx goals and no longer meets criteria for IOP level of care. ?? Narrative Note: []
--- NOTE | 2024-02-24 14:28 | BH.MDN ---
Multi-Disciplinary Note Note 45-min Individual: Time Started:: 10:10 Date: 02/24/24 Purpose of session/treatment goals addressed:: Purpose of session was to identify treatment progress, complete maintenance plan, and solidify discharge plans. Eye Contact:: Good Motor Activity:: Appropriate Appearance:: Casual Speech:: Appropriate Mood:: Euthymic Affect:: Full and Bright Thoughts:: Linear, Logical and No evidence of hallucinations/delusions noted Staff Interventions:: CBT techniques, discharge planning (completed maintenance plan), strengths perspective and reviewed DSM-5 Client Response:: Client reported she had a really great weekend and is feeling ready for discharge from [facility] today. Client shared over the weekend she went out with friends with her and they were able to go to a festival in which there was a lot of people there. Client stated she was anxious about being in a crowd but felt like she wanted to try since she be with other people. Client reported she was able to enjoy herself at the festival and be around her friends reconnecting. Client stated she shared a little bit more about her own mental health explaining that she has been working herself and his importance of medications to help. Client reported she did not share about her bipolar disorder but feels like this friend is someone she could eventually open up to. Client stated the program has helped her realize the importance of having a support network and she is feeling less self stigma about mental illness which has helped her even open up a little bit with her friends. She shared feeling more confident in her ability to manage her mental health symptoms and is proud of how much progress she has made. Client stated she feels like the last 2 weeks has been her best in a really long time. Client reported being able to navigate and manage her emotions during the challenges associated with her daughters situation has really shown her how much progress she has made. Client stated she does not believe she would have handled the situation really well what happened 5 weeks ago. Client noted significant treatment progress with no longer having suicidal thoughts and not having self harm urges in over 2 weeks. Client worked with therapist to complete maintenance plan in which she identified triggers, warning signs, self-care activities, and healthy coping strategies. Reviewed DSM-V cross cutting measures scores at discharge. Client was happy to hear her overall symptoms of decreased by 68%. Risks/Concerns:: Denies suicidal ideation, plan, or intention. Future oriented. Progress Toward Goals/Plan:: Significant treatment progress noted since starting IOP as noted above in client response. DSM-V scores at discharge indicate a 75% reduction in depression, 60% reduction in anxiety, 100% reduction in thoughts of hurting self, and an overall 60% reduction in overall symptoms. Client reports feeling ready for discharge from [facility]. Client has an appointment for outpatient counseling with Kika Ugarte on March 03, has an appointment with Dr. Lagunas for medication management in March, and is starting the [facility] aftercare program on February 26. Plan is for client to discharge from [facility] today. Time Stopped:: 11:00
--- NOTE | 2024-02-24 15:29 | BH.DS_ITS ---
Discharge Summary Demographics Date of Admission:: 12/31/23 Discharge Date: 02/24/24 Presenting Problems at Admission:: Patient is a 48-year-old female with a history of bipolar 2 disorder and PTSD and anxiety who was referred by her outpatient provider for worsening symptoms of depression, anxiety and fleeting suicidal ideation in the past 6 months. 1 month ago the patient's asked her to hide her pills because she wanted to prevent herself from overdosing but she states that she would never kill herself because of her and children. She endorses sadness, crying spells, low motivation, hopelessness, worthlessness, guilt, isolation when not at work, anhedonia, disruption of sleep, low energy, fatigue, decreased concentration, short-term memory issues, guilt, passive thoughts of , passive suicidal ideation several times a week which last several hours. She states that 90% of the time she is depressed and only 10% as she hypomanic and she thinks possibly she was hypomanic for a few hours a few weeks ago. She is a worrier by nature and ruminates negatively. She gets panic attacks 2-4 times a week. Discharge Diagnoses:: 1. Bipolar 2 disorder F31.81 2. Generalized anxiety disorder 3. PTSD Reason for Discharge:: Pt has made significant treatment progress since starting IOP, has met treatment goals, and no longer meets criteria for IOP level of care. Treatment Progress During Treatment & Response: Progress noted AEB DSM 5 cross-cutting measure scores at discharge. Client's scores show a 75% reduction in depression, 68% decrease in anxiety, 100% decrease in suicidal thoughts, and an overall 68% reduction in overall mental health symptoms. Client stated she feels like the last 2 weeks has been her best in a really long time. Client reported being able to navigate and manage her emotions during the challenges associated with her daughters situation has really shown her how much progress she has made. Client stated she does not believe she would have handled the situation really well what happened 5 weeks ago. Client noted significant treatment progress with no longer having suicidal thoughts and not having self harm urges in over 2 weeks. Issues Still to be Addressed:: Client could benefit from continued work on self- care, decreasing self-stigma, opening up to healthy supports, and giving self credit. Discharge Recommendations/Instructions:: Client has appointment with outpatient counselor Kika Ugarte on 03/03/24. Client is scheduled with Dr. Lagunas for psychiatry at end of March. Client is to start [facility] aftercare program on 02/27/24. Discharge Handout
== END 2024-02-24 12:14 | disposition home or self-care (01) ==
LOC: BHIOP 08:10
PROVIDERS: PCP Nurse Practitioner Family; Referring Provider Psychiatry & Neurology Psychiatry; Visit Provider Psychiatry & Neurology Psychiatry
DX: F31.81 Bipolar II disorder (principal); F41.1 Generalized anxiety disorder; F43.10 Post-traumatic stress disorder, unspecified; Z79.899 Other long term (current) drug therapy
CPT/HCPCS: S9480; 90834; 90853

== ENCOUNTER 2024-02-27 08:00 | Outpatient (RCR) | payer OTHER, SELFPAY ==
--- NOTE | 2024-02-27 14:00 | BH.SGPN.GN ---
Behaviors/Verbalizations/Mental Status: []Pt alert and oriented, casually dressed and groomed. Eye contact good. Motor activity appropriate. Speech within normal limits. Affect congruent, mood content, anxious. Thoughts linear, logical, no signs of hallucinations or delusions. Client Response/Progress/Benefit: []Pt responded well to session AEB sharing and listening attentively to others. Pt has been consistent with outpatient mental health appointments and medication compliance. Pt reports using positive self-talk, opposite action, Delay, Distract, Decide, and boundary setting to help with managing mental health symptoms. Pt participated in group discussion defining affirmations and why they are important. Pt provided insight throughout clinician?s presentation of tips for writing personal affirmations and wrote their own affirmations, including ?I am actively using my coping skills to get through stressful situations?, ?I am taking steps to improve my mental health?, and ?I am the author of my own story and at anytime can edit it?. Pt appeared to benefit from increased knowledge of affirmation writing skills and creating their own affirmation statements to remind themselves of outside tx environment. Will continue aftercare tx to promote consistent mental health maintenance and prevent decompensation. Narrative Note: []
--- NOTE | 2024-02-27 14:00 | BH.COMM ---
Communication Note Communication with Client Communication Note: Patient completed IOP and presents today to start relapse prevention group which meets once weekly (1.5 hours) for 8 weeks. Case discussed with Dr. Melissa with plan to admit with dx of F31.59
--- NOTE | 2024-02-27 16:48 | BH.MTP ---
Master Treatment Plan Patient Information Program Physician:: Dr. Melissa Primary Therapist:: Nelia Pal [facility] Psychiatric Diagnoses Psychiatric Diagnoses:: 1. Bipolar 2 disorder F31.81 2. Generalized anxiety disorder 3. PTSD Diagnosis Code(s):: F31.81 Estimated LOS Estimated LOS (in weeks):: 8 Problem/Goal #1 Problem/Goal #1 Stated Goal:: client will maintain or see a reduction in symptoms AEB client score on the DSM 5 cross-cutting measure and improve client's daily functioning. Objectives Objective #1: Stated Objective: Client will continue to consistently apply healthy coping skills to maintain progress made in IOP tx. Interventions: Through group therapy, client will review warning signs and triggers as well as healthy coping skills learned in IOP tx to successfully maintain gains while transitioning into outpatient therapy. Discharge Criteria: Client will have accomplished this goal when client's score on the DSM-5 cross-cutting measure has maintained or reduced over a 8 week period. Target Date: 04/23/24 Review Date: 03/26/24 Objective #2: Stated Objective: Client will learn and utilize 2-3 maintenance strategies to prevent decompensation from original IOP DSM-5 scores. Interventions: Through group therapy, client will be provided with education on healthy maintenance behaviors, relapse prevention techniques, and healthy coping strategies. Discharge Criteria: Client will have accomplished this goal when can report using at least 2 maintenance skills to prevent decompensation compared to original IOP DSM-5 scores. Target Date: 04/23/24 Review Date: 03/26/24
--- NOTE | 2024-03-05 14:00 | BH.SGPN.GN ---
Behaviors/Verbalizations/Mental Status: []Pt alert and oriented, casually dressed and groomed. Eye contact good. Motor activity appropriate. Speech within normal limits. Affect congruent, mood content. Thoughts linear, logical, no signs of hallucinations or delusions. Client Response/Progress/Benefit: [] Pt receptive of session, engaged throughout. Pt shared he did attend an outpatient therapy session this week, has been consistent with meds, and is using coping skills. These skills included: journaling, cognitive diffusion, deep breathing, and positive self-talk. Receptive of discussion on ?Chapters of my life? poem. Pt contributed to the discussion of the different chapters one may go through and how they connect with current mental health progress. Pt reflected and identified their current chapter as ?3 and 4? and noted ?There are times I go down the same path and there are times I avoid the hole by being more aware of warning signs?. Identified that taking more time to engage in self-care, attend regular therapy, and reach out to supports would help with getting to the next chapter. Pt seemed to benefit from support from peers and increasing understanding of ?Chapters of my life?. Will continue IOP aftercare to maintain gains and prevent decompensation. Narrative Note: []
--- NOTE | 2024-03-12 14:00 | BH.SGPN.GN ---
Behaviors/Verbalizations/Mental Status: []Pt alert and oriented, casually dressed and groomed. Eye contact fair. Motor activity appropriate. Speech within normal limits. Affect constricted, mood euthymic. Thoughts linear, logical, no signs of hallucinations or delusions. Client Response/Progress/Benefit: []Pt receptive of session, engaged throughout. Pt stated she has been going to counseling for two sessions, but is not sure the therapist is going to work on. Client stated she might give the therapist one more chance, but is having a hard time connecting. Client stated she has been using healthy distractions, sitting with uncomfortable, positive affirmations, grounding, and thought challenge as skills to help manage stressors and mental health. Receptive of discussion on personal accountability and its importance in maintaining mental health stability. Engaged in brainstorming strategies for improving ability to hold themselves accountable and participated in the activity. Pt seemed to benefit from support from peers and increasing understanding of personal accountability benefits and strategies. Will continue IOP aftercare group to maintain gains and prevent decompensation.
--- NOTE | 2024-03-19 14:00 | BH.SGPN.GN ---
Behaviors/Verbalizations/Mental Status: []Pt alert and oriented, neatly dressed and groomed. Eye contact good. Motor activity appropriate. Speech within normal limits. Affect congruent, mood slightly dysthymic. Thoughts linear, logical, no signs of hallucinations or delusions. Client Response/Progress/Benefit: []Pt responded well to session, Pt reports did not get to see her therapist this week, but she has been consistent with medications. Pt shared a recent stressor with the group and received support from peers and waistline joiner overlock which helped pt give herself credit. Pt also reflected on the coping skills pt has been using such as opposite action, making a weekly calendar, and challenging her thoughts. Pt engaged well during the discussion of the components of self-compassion. Pt connected with the benefits of self-compassion and participated in the activity of reframing a recent setback using self-compassion. Pt receptive to feedback from waistline joiner overlock on self-compassion not being self-pity but being david. Pt appeared to benefit from practicing self-compassion and connecting with peers. Will continue IOP tx to promote use of healthy coping skills and increase self-confidence. Narrative Note: []
== END 2024-03-22 23:59 ==
LOC: BHOG 08:00
PROVIDERS: PCP Nurse Practitioner Family; Referring Provider Psychiatry & Neurology Psychiatry; Visit Provider Psychiatry & Neurology Psychiatry
DX: F31.81 Bipolar II disorder (principal)
CPT/HCPCS: 90853

== ENCOUNTER 2024-03-23 07:17 | Outpatient (RCR) | payer OTHER, SELFPAY ==
--- NOTE | 2024-04-02 14:00 | BH.SGPN.GN ---
Behaviors/Verbalizations/Mental Status: []Pt alert and oriented, neatly dressed and groomed. Eye contact good. Motor activity appropriate. Speech within normal limits. Affect congruent, mood tired and slightly depressed. Thoughts linear, logical, no signs of hallucinations or delusions. Client Response/Progress/Benefit: []Pt responded well to session, attentive and engaged. Receptive to feedback. Pt reports they have been following up with her outpatient appointments and medications to maintain her mental wellness. Pt did not see a therapist this week. Pt reports she has been struggling with feeling blah this week and not having a lot of natural motivation. Pit Hand and group offered support and feedback on coping with lack of motivation which pt appeared to benefit from. Pt shared using skills like opposite action, using her daily calendar, deep breathing, and challenging distortions. Pt responded well to discussion of problem-solving including the strategies for problem-solving. Pt participated in the group activity and helped peers find a way to overcome the challenge obstacles. Pt was encouraged to take the problem-solving strategies and apply them outside of IOP aftercare. Pt will continue IOP aftercare to promote mood stability, reinforce healthy coping skills, and promote gains. Narrative Note: []
--- NOTE | 2024-04-02 15:40 | BH.TPR ---
Treatment Plan Review Demographics Date of Admission:: 02/27/24 Date of Treatment Plan Review:: 04/02/24 Admitting Diagnoses:: 1. Bipolar 2 disorder F31.81 2. Generalized anxiety disorder 3. PTSD Current Diagnoses:: 1. Bipolar 2 disorder F31.81 2. Generalized anxiety disorder 3. PTSD Patient Status Patient's Response to Treatment:: Pt has been responding well to treatment AEB consistent attendance to aftercare sessions, engagement in group discussions, and reporting practicing/applying skills and strategies outside treatment environment. Status of Current Problems and Symptoms: Client recently reporting feeling blah and having decrease in motivation. Client identifies one of her stressors as not connecting with her outpatient therapist so currently is looking for a new therapist. Not having an individual therapist to help reinforce the healthy coping skills and strategies she has learned could be barrier to continued progress. Client has reporting doing overall better with managing various stressors she's been faced with over the last few weeks. Per DSM 5 cross-cutting measure at review client's scores indicate an overall 46% reduction in overall mental health symptoms when compared to IOP admission scores. Progress Problem #1: Problem Name:: Pt will maintain or see a reduction in sx. Status of Goals:: Obj 1 - progress noted, ongoing work encouraged. Per DSM 5 cross-cutting measure at review client's scores indicate 50% reduction in depression, 17% reduction in anxiety, and an overall 46% reduction in overall mental health symptoms when compared to IOP admission scores. Obj 2 - met. Client reporting using skills like opposite action, using her daily calendar, deep breathing, and challenging distortions. Team Recommendations:: Team recommends client continue current goal and objectives to decrease depression and increase consistent use of healthy coping skills.
--- NOTE | 2024-04-09 14:00 | BH.SGPN.GN ---
Behaviors/Verbalizations/Mental Status: []Pt alert and oriented, neatly dressed and groomed. Eye contact good. Motor activity appropriate. Speech within normal limits. Affect congruent, mood content. Thoughts linear, logical, no signs of hallucinations or delusions. Client Response/Progress/Benefit: []Pt responded well to session, Pt reports they see their therapist weekly and she is consistent with medications. Pt also reflected on the coping skills pt has been using such as positive self-talk, opposite action, and lists. Pt engaged well during the discussion on intrinsic and extrinsic motivation. Pt connected with the benefits of developing strong sources of intrinsic motivation and participated in brainstorming strategies to do so. Pt identified plans to begin daily accomplishment tracking to improve own intrinsic motivation. Pt appeared to benefit from psychoeducation on different sources of motivation and ways to improve motivation. Will continue aftercare tx to maintain gains and prevent decompensation. Narrative Note: []
== END 2024-04-22 23:59 ==
LOC: BHOG 07:17
PROVIDERS: PCP Nurse Practitioner Family; Referring Provider Psychiatry & Neurology Psychiatry; Visit Provider Psychiatry & Neurology Psychiatry
DX: F31.81 Bipolar II disorder (principal); F41.1 Generalized anxiety disorder; F43.10 Post-traumatic stress disorder, unspecified
CPT/HCPCS: 90853

== ENCOUNTER 2024-04-23 07:17 | Outpatient (RCR) | payer OTHER, SELFPAY ==
--- NOTE | 2024-04-23 14:00 | BH.SGPN.GN ---
Behaviors/Verbalizations/Mental Status: []Pt alert and oriented, neatly dressed and groomed. Eye contact good. Motor activity appropriate. Speech within normal limits. Affect congruent, mood euthymic. Thoughts linear, logical, no signs of hallucinations or delusions. Client Response/Progress/Benefit: []Pt receptive of session, engaged throughout. Pt shared they did not meet with their outpatient provider since last session. Pt has been taking medications consistently and reports utilizing healthy coping skills outside of aftercare. These skills included: gratitude reflection, opposite action, STOPP, and thought challenging. ?Receptive of discussion on sitting with the uncomfortable and emotional urges. Pt contributed to the discussion of distress tolerance and how building distress tolerance can help improve mood stability and resilience. Pt wants to keep building distress tolerance by sitting in the passenger seat more. Pt seemed to benefit from support from peers and increasing understanding of distress tolerance. Will discharge from [facility] aftercare as pt has accomplished their goals. Narrative Note: []
--- NOTE | 2024-04-23 15:52 | BH.DS_ITS ---
Discharge Summary Demographics Date of Admission:: 02/27/24 Discharge Date: 04/23/24 Presenting Problems at Admission:: Pt discharged from IOP tx and transitioned to IOP aftercare to maintain gains pt made in IOP and to reinforce healthy coping skills. At admission to IOP aftercare, pt continued to report symptoms of depression and anxiety, but of reduced intensity. Pt had psychosocial stressors she was coping with having to set boundaries with her daughter and trying to fi nd work. Discharge Diagnoses:: 1. Bipolar 2 disorder F31.81 2. Generalized anxiety disorder 3. PTSD Reason for Discharge:: Pt has met treatment goals, has been able to maintain her treatment progress, and reports feeling ready to discharge from aftercare. Treatment Progress During Treatment & Response: Pt responded well and made progress in IOP aftercare as evidenced by pt's participation in group discussions and self- report of applying coping skills. Pt's overall DSM-5 scores decreased by 75% from IOP admission. Pt?s scores for anxiety decreased by 67%, and depression decreased by 75% compared to admission IOP scores. Additionally, at discharge pt reported being able to manage stressors better and has accepted a new work position that she is excited about. Issues Still to be Addressed:: Continued reinforcement of healthy coping skills, processing stress regarding her daughter, building confidence, and help with transitioning back into the workforce. Discharge Recommendations/Instructions:: Recommended to follow up with outpatient therapist, Sathya Bolaños. Pt also recommended to follow up with outpatient psychiatrist, Dr. Lagunas. Discharge Handout
== END 2024-04-23 15:54 | disposition home or self-care (01) ==
LOC: BHOG 07:17
PROVIDERS: PCP Nurse Practitioner Family; Referring Provider Psychiatry & Neurology Psychiatry; Visit Provider Psychiatry & Neurology Psychiatry
DX: F31.81 Bipolar II disorder (principal); F41.1 Generalized anxiety disorder; F43.10 Post-traumatic stress disorder, unspecified
CPT/HCPCS: 90853

== ENCOUNTER 2024-07-02 06:28 | Emergency (ER) | payer OTHER, SELFPAY ==
[2024-07-02 06:29] VITALS: BP 141/81; PULSE 88; RESP 18; TEMP 36.9; O2SAT 96; BMI 34.4
[2024-07-02 07:01] LABS: Absolute Lymphocyte Count 0.67 X10^3/uL (0.83-4.51); Absolute Neutrophil Count 3.8 X10^3/uL (2.0-7.7); Basophil# 0.05 X10^3/uL; Eosinophil# 0.09 X10^3/uL; Eosinophils% 1.8 % (0-5); Hemoglobin 13.5 g/dL (12.0-15.0); Lymphocyte # 0.67 X10^3/ul (0.83-4.51); Lymphocyte % 13.7 % (19-41); Mean Corp Hgb Conc 32.9 g/dL (32-36); Mean Corpuscular Hgb 28.5 pg (27.0-32.0); Mean Corpuscular Volume 86.7 fL (81-99); Mean Platelet Vol. 9.3 fl (6.2-12.0); Monocyte# 0.31 X10^3/uL; Monocyte% 6.3 % (0-10); NRBC Flagged by Analyzer 0 % (0-5); Neutrophil # 3.75 X10^3/uL (2.7-7.7); Neutrophil % 76.8 % (47-70); Platelet Count 208 K/mm3 (150-450); RBC Distribution Width CV 12.8 % (11.6-14.6); RBC Distribution Width SD 40.5 fl (35.1-43.9); Red Blood Count 4.73 M/mm3 (4.2-5.4); White Blood Count 4.9 K/mm3 (4.4-11.0)
[2024-07-02 07:09] LABS: Bacteria 0 SEEN /hpf (None Seen); Mucous, Urine 0 SEEN /hpf (<or=2+); Red Blood Cells-Urine 0 SEEN /hpf (0-5)
[2024-07-02] MEDS: LORazepam 1 MG Tablet PO ×2 (07:09→14:26)
[2024-07-02 07:18] LABS: Color, Urine Yellow (Yellow); Glucose, Dipstick Normal (Normal); Ketone-Dipstick Negative (Negative); Leukocyte Esterase-Dipstick 25 /ul (Negative); Nitrite-Dipstick Negative (Negative); Occult Blood-Urine Negative /ul (Negative); Protein-Dipstick Negative (Negative); Urine Bilirubin Dipstick Negative (Negative); Urine Clarity Clear (Clear); Urine Urobilinogen Normal (Normal)
[2024-07-02 07:29] VITALS: BP 140/80; PULSE 79; RESP 16; O2SAT 99
[2024-07-02 07:31] LABS: Squamous Epithelial Cells - UA 0-5 SEEN /hpf (5-10); White Blood Cells 0-5 SEEN /hpf (0-5)
[2024-07-02 07:31] LABS: Alcohol, Blood (Medical)-Serum < 3.0 mg/dL; Anion Gap 6 (5-15); BUN 12 mg/dL (7-18); Calcium,Total 9.7 mg/dL (8.5-10.1); Chloride 108 mmol/L (98-107); Creatinine, Serum 0.86 mg/dL (0.55-1.02); EST Glomerular Filtration Rate 75 mL/min (>60); Est Glom Filt Rate - Afr Amer 91 mL/min (>60); Estimated Creatinine Clearance 92.65 ml/min; Glucose 156 mg/dL (74-106); Potassium 3.6 mmol/L (3.5-5.1); Sodium Level 140 mmol/L (136-145)
--- NOTE | 2024-07-02 07:36 | EDS_ITS ---
HPI History of Present Illness Chief Complaint: Suicidal Informant: patient and spouse/S.O. Narrative Narrative: Patient is a 48-year-old female with past medical history of generalized anxiety disorder bipolar disorder hypothyroidism type 2 diabetes and GERD. She states that the stress associated life has been slowly building and she has reached a point where her depression has spiked and now she has thoughts of harming herself. She states that she had to be hospitalized roughly 12 years ago at a psychiatric center for similar thoughts of self-harm and that she also attempted overdose at that time. Patient does report that she feels that if she does not receive proper care that she will potentially harm himself again and at this time her plan is to also overdose once more. She denies any illicit drug use or alcohol use at this time and states she is not taking her medications in any other manner and then as directed by her doctor but with her worsening depression and thoughts of self-harm presents for evaluation [facility] Medical History Chronic insomnia PTSD (post-traumatic stress disorder) Generalized anxiety disorder Bipolar 2 disorder, major depressive episode Physical exam, pre-employment Hodgkin lymphoma Non-smoker Hypertension Chest pain CAD (coronary artery disease) TONIO (obstructive sleep apnea) Asthma Gastroesophageal reflux disease Diabetes mellitus, type II Morbid obesity with BMI of 40.0-44.9, adult Hypothyroidism (acquired) Family history of heart disease Home Medications ?Medication ?Instructions ?Recorded ?Last Taken ?Type aspirin 81 mg chewable tablet 81 mg PO DAILY@0800 ##30 11/20/14 06/05/21 10:00 Rx atorvastatin 20 mg tablet 20 mg PO DAILY@2200 #30 tabs 11/20/14 04/16/16 Rx carvedilol 3.125 mg tablet 12.5 mg PO BID 12/16/14 06/05/21 10:00 History melatonin 10 mg sublingual tablet 10 mg PO QHS 08/21/18 Unknown History cevimeline 30 mg capsule 30 mg PO TID 02/11/23 Unknown History clonazepam 1 mg tablet 1 mg PO QHS 02/11/23 Unknown History armodafinil 200 mg tablet 200 mg PO DAILY 01/01/24 Unknown History gabapentin 600 mg tablet 1,200 mg PO QHS 01/01/24 Unknown History levothyroxine 137 mcg tablet 137 mcg PO MOTUWETHFR 01/01/24 Unknown History (Euthyrox) levothyroxine 137 mcg tablet 205.5 mcg PO .sasu 01/01/24 Unknown History (Euthyrox) ondansetron 4 mg disintegrating 4 mg PO Q8H PRN nausea and vomiting 01/01/24 Unknown History tablet pantoprazole 40 mg tablet,delayed 40 mg PO BID 01/01/24 Unknown History release cariprazine 3 mg capsule (Vraylar) 3 mg PO DAILY 30 days #30 caps 04/27/24 Unknown Rx meloxicam 15 mg tablet 15 mg PO DAILY 04/27/24 Unknown History metformin 500 mg tablet 500 mg PO BID 04/27/24 Unknown History topiramate 25 mg tablet 25 mg PO QHS #90 tabs 04/27/24 Unknown Rx Allergy/AdvReac Type Severity Reaction Status Date / Time venlafaxine (From Effexor) Allergy Mild Other Verified 04/27/24 10:53 diphenhydramine HCl (From AdvReac Other Verified 04/27/24 10:53 Benadryl) doxycycline AdvReac Nausea/Vom/ Verified 04/27/24 10:53 Diarrhea promethazine HCl (From AdvReac Nausea Verified 04/27/24 10:53 Phenergan) sumatriptan (From Imitrex) AdvReac Other Verified 04/27/24 10:53 sumatriptan succinate (From AdvReac Other Verified 04/27/24 10:53 Imitrex) tramadol (From Ultram) AdvReac Other Verified 04/27/24 10:53 Family History (Updated 04/27/24 @ 11:12 by Jagruti Rivera) Other Alcoholism Anxiety Asthma Blood clot in vein Cancer Depression Diabetes Heart disease Hypertension Mental disorder Myocardial infarction Ovarian cancer Psychiatric care Thyroid disorder Surgical History History of carpal tunnel release of both wrists H/O: hysterectomy History of thyroidectomy History of cholecystectomy Social History (Updated 04/27/24 @ 11:14 by Jagruti Rivera) Smoking Status: Never smoker alcohol intake: never substance use type: does not use what type of physical activity do you participate in: walking ROS ROS ED Constitutional Constitutional ED: Denies chills or fever(s) Eyes Eyes: Denies change in vision ENT ENT ED: Denies sore throat Cardiovascular Cardiovascular: Denies chest pain Respiratory/Chest Respiratory/Chest: Denies cough or dyspnea Gastrointestinal Gastrointestinal: Denies abdominal pain, diarrhea, nausea or vomiting Genitourinary Genitourinary ED: Denies dysuria Musculoskeletal Musculoskeletal: Denies myalgias Integumentary Denies rash Neurologic Neurologic: Denies headache(s) Psychiatric Psychiatric: Reports anxiety, depression, suicidal ideation and suicidal thoughts Hematologic/Lymphatic Hematologic/Lymphatic: Denies easy bleeding or easy bruising EXAM Physical Exam Const Vital Signs: 07/02/24 06:29 07/02/24 07:29 Temperature 98.5 F Temperature Source Temporal Pulse Rate 88 79 Respiratory Rate 18 16 Blood Pressure 141/81 H 140/80 H Blood Pressure Mean 101 100 Pulse Ox 96 99 Oxygen Delivery Method Room Air Positive well nourished and well developed General Appearance ED: well developed; Negative for pallor HEENT HEENT Narrative: Normocephalic atraumatic Eyes PERRL and EOMs intact bilaterally General Eye ED: Negative for scleral icterus Neck supple Neck Narrative: No nuchal rigidity or meningeal signs Chest Wall palpation of chest normal Resp normal respiratory effort and clear to auscultation bilaterally Cardio regular rate and regular rhythm GI normal to inspection, nondistended, normoactive bowel sounds, non-tender, non- distended and no masses Auscultation: normoactive bowel sounds Palpation: soft Extremity normal to inspection Neuro oriented x3, CN's II-XII intact bilaterally and no sensory deficits noted Sensorium / Orientation: alert Motor Exam: strength 5/5 throughout Psych Psych Narrative: Patient has a depressed/flat affect with suicidal ideation Skin no rashes or lesions noted General Skin Exam: Negative for jaundice or pallor MDM MDM MDM Narrative Medical decision making narrative: Patient arrived to ER mildly hypertensive but overall with stable vitals. She r eported increased depression secondary to stress from life and has thoughts of self-harm by overdose. She is at a higher risk to attempt self-harm based on her previous suicide attempt and need for psychiatric hospitalization roughly 12 years ago secondary to worsening depression. Therefore a basic medical screening exam was performed which revealed no acute findings. Secondary to this the patient is medically cleared and social work/psychiatry will be contacted to evaluate the patient and discuss potential inpatient treatment. I do believe that as she is a high risk to harm herself based on her past history and worsening recent symptoms that inpatient treatment is the safest and best option for her I did not feel the need to check a test as the patient had a previous hysterectomy The patient is medically cleared from emergency room standpoint for transfer/placement in psychiatric center History & Record Review Discussion w/independent historian: Patient and Significant other Lab Data Attestation: I reviewed the patient's lab results. Labs: Laboratory Results - last 24 hr 07/02/24 07/02/24 06:50 06:55 WBC 4.9 RBC 4.73 Hgb 13.5 Hct 41.0 MCV 86.7 MCH 28.5 MCHC 32.9 RDW Std Deviation 40.5 RDW Coeff of Noman 12.8 Plt Count 208 MPV 9.3 Immature Gran % (Auto) 0.400 Neut % (Auto) 76.8 H Lymph % (Auto) 13.7 L [place] % (Auto) 6.3 Eos % (Auto) 1.8 Baso % (Auto) 1.0 Absolute Neuts (auto) 3.8 Absolute Lymphs (auto) 0.67 L Nucleated RBC % 0 Sodium 140 Potassium 3.6 Chloride 108 H Carbon Dioxide 26.0 Anion Gap 6 BUN 12 Creatinine 0.86 Estim Creat Clear Calc 92.65 Est GFR (MDRD) Af Amer 91 Est GFR (MDRD) Non-Af 75 BUN/Creatinine Ratio 14.0 Glucose 156 H Calcium 9.7 Urine Color Yellow Urine Clarity Clear Urine pH 6.0 Ur Specific [place] 1.010 Urine Protein Negative Urine Glucose (UA) Normal Urine Ketones Negative Urine Occult Blood Negative Urine Nitrite Negative Urine Bilirubin Negative Urine Urobilinogen Normal Ur Leukocyte Esterase 25 H Urine RBC 0 SEEN Urine WBC 0-5 SEEN Ur Squamous Epith Cells 0-5 SEEN Urine Bacteria 0 SEEN Urine Mucus 0 SEEN Urine Opiates Screen NEGATIVE Urine Methadone Screen NEGATIVE Ur Barbiturates Screen NEGATIVE Ur Phencyclidine Scrn NEGATIVE Ur Amphetamines Screen NEGATIVE MDMA (Ecstasy) Screen NEGATIVE U Benzodiazepines Scrn NEGATIVE Urine Cocaine Screen NEGATIVE U Cannabinoids Screen NEGATIVE Ur Drug Screen Comment Ethyl Alcohol < 3.0 Discharge Plan Triage Chief Complaint: Suicidal ED Provider: Benjie Cespedes Dx/Rx/DC Orders Clinical Impression: Depression with suicidal ideation, Hypothyroidism (acquired), Bipolar 2 disorder, major depressive episode, Generalized anxiety disorder, Diabetes me llitus, type II Prescriptions: No Action cevimeline 30 mg capsule 30 mg PO TID clonazepam 1 mg tablet 1 mg PO QHS meloxicam 15 mg tablet 15 mg PO DAILY topiramate 25 mg tablet 25 mg PO QHS Qty: 90 1RF Vraylar 3 mg capsule 3 mg PO DAILY 30 Days Qty: 30 1RF atorvastatin 20 MG tablet 20 mg PO DAILY@2200 Qty: 30 0RF Patient Comments: cholesterol aspirin 81 MG tablet,chewable 81 mg PO DAILY@0800 Qty: 30 0RF Patient Comments: [facility] carvedilol 3.125 MG tablet 12.5 mg PO BID Patient Comments: blood pressure/heart metformin 500 mg tablet 500 mg PO BID Patient Comments: DIABETES melatonin 10 MG tablet 10 mg PO QHS gabapentin 600 mg tablet 1,200 mg PO QHS levothyroxine [Euthyrox] 137 mcg tablet 137 mcg PO MOTUWETHFR levothyroxine [Euthyrox] 137 mcg tablet 205.5 mcg PO .sasu Rx Instructions: orally SASU; armodafinil 200 mg tablet 200 mg PO DAILY ondansetron 4 mg tablet,disintegrating 4 mg PO Q8H PRN (Reason: nausea and vomiting) pantoprazole 40 MG tablet 40 mg PO BID Primary Care Provider: Татьяна Sprague NP Referrals: Татьяна Sprague NP, CORRESPONDENT-C [Primary Care Provider] - Print Language: Estonian Disposition Disposition: Psychiatric Hospital or Unit
[2024-07-02 07:39] LABS: Amphetamine Urine VISTA NEGATIVE (<1000 ng/mL); Barbiturate Urine VISTA NEGATIVE (< 200 ng/mL); Benzodiazepine Urine VISTA NEGATIVE (< 200 ng/mL); Cocaine Urine VISTA NEGATIVE (< 300 ng/mL); Ecstacy Urine VISTA NEGATIVE (< 500 ng/mL); Methadone Urine VISTA NEGATIVE (< 300 ng/mL); PCP Urine VISTA NEGATIVE (< 25 ng/mL); THC Urine VISTA NEGATIVE (< 50 ng/mL); Vista UDS pH Range 6
--- NOTE | 2024-07-02 07:52 | NURSING ---
CALLED [facility] ABOUT PATIENT
--- NOTE | 2024-07-02 07:58 | NURSING ---
FAXED CHART TO [facility]
--- NOTE | 2024-07-02 08:23 | NURSING ---
DILIP, [facility], HERE
--- NOTE | 2024-07-02 14:19 | NURSING ---
LISA HERNANDEZ, [address] DR SHEPHERD NURSE TO NURSE [phone]
--- NOTE | 2024-07-02 14:29 | NURSING ---
CALLED [facility], ETA IS 60 TO 90 MIN
[2024-07-02 15:46] VITALS: BP 116/81; PULSE 96; RESP 18; TEMP 37; O2SAT 100
--- NOTE | 2024-07-02 15:46 | ED.RN ---
Report given to Veronica Roy.
--- NOTE | 2024-07-02 16:20 | NURSING ---
CALLED [facility], TALKED TO ALYSHA, ETA IS ANOTHER 59 MIN OUT
== END 2024-07-02 17:51 ==
PROVIDERS: Emergency Provider Emergency Medicine; PCP Nurse Practitioner Family; Visit Provider Emergency Medicine
DX: R45.851 Suicidal ideations (principal); F31.81 Bipolar II disorder; E11.9 Type 2 diabetes mellitus without complications; F41.1 Generalized anxiety disorder; I25.10 Atherosclerotic heart disease of native coronary artery without angina pectoris; Z90.710 Acquired absence of both cervix and uterus; Z79.82 Long term (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; Z79.899 Other long term (current) drug therapy; E03.9 Hypothyroidism, unspecified; Z79.84 Long term (current) use of oral hypoglycemic drugs; Z90.49 Acquired absence of other specified parts of digestive tract
CPT/HCPCS: 80048; 80307; 81001; 82077; 85025; 99284

== ENCOUNTER 2024-10-18 14:17 | Emergency (ER) | payer OTHER, SELFPAY ==
[2024-10-18 14:19] VITALS: BP 151/88; PULSE 79; RESP 18; TEMP 37.2; O2SAT 100; BMI 32.8
--- NOTE | 2024-10-18 14:21 | EKG12_ITS ---
Test Reason : CP Blood Pressure : */* mmHG Vent. Rate : 85 BPM Atrial Rate : 85 BPM P-R Int : 154 ms QRS Dur : 84 ms QT Int : 392 ms P-R-T Axes : 30 20 10 degrees QTcB Int : 466 ms Normal sinus rhythm Cannot rule out Anterior infarct , age undetermined Abnormal ECG Confirmed by HERON CRANE, DAVIDA ([id number]), news videotape editor GUIDO LEACH ([id number]) on 10/20/2024 6:20:18 AM Referred By: Confirmed By: DAVIDA SHELBY MD
--- NOTE | 2024-10-18 14:35 | RAD_ITS ---
EXAM: XR CHEST, 1 VIEW CLINICAL INDICATION: chest pain TECHNIQUE: Frontal view of the chest. COMPARISON: 07/18/22 FINDINGS: LUNGS AND PLEURAL SPACES: Unremarkable. No consolidation or edema. No pneumothorax. No effusion. HEART: Unremarkable. Cardiac silhouette not enlarged. MEDIASTINUM: Central airways and mediastinal contour are unremarkable. BONES/JOINTS: Unremarkable. No acute fracture. SOFT TISSUES: Unremarkable. RAD/Chest 1 View (Portable) IMPRESSION: No radiographic evidence of acute cardiopulmonary disease. Electronically Signed: Shoaib Geller MD at 15:01 EST ,
[2024-10-18 14:44] LABS: Absolute Lymphocyte Count 1.01 X10^3/uL (0.83-4.51); Absolute Neutrophil Count 4.3 X10^3/uL (2.0-7.7); Basophil# 0.05 X10^3/uL; Basophil% 0.8 % (0-1); Eosinophil# 0.35 X10^3/uL; Eosinophils% 5.8 % (0-5); Hematocrit 37.5 % (37-47); Hemoglobin 12.9 g/dL (12.0-15.0); Lymphocyte # 1.01 X10^3/ul (0.83-4.51); Lymphocyte % 16.7 % (19-41); Mean Corp Hgb Conc 34.4 g/dL (32-36); Mean Corpuscular Hgb 29.1 pg (27.0-32.0); Mean Corpuscular Volume 84.7 fL (81-99); Mean Platelet Vol. 9.5 fl (6.2-12.0); Monocyte# 0.38 X10^3/uL; Monocyte% 6.3 % (0-10); NRBC Flagged by Analyzer 0 % (0-5); Neutrophil # 4.25 X10^3/uL (2.7-7.7); Neutrophil % 70.1 % (47-70); Platelet Count 179 K/mm3 (150-450); RBC Distribution Width CV 13.5 % (11.6-14.6); RBC Distribution Width SD 41.3 fl (35.1-43.9); Red Blood Count 4.43 M/mm3 (4.2-5.4); White Blood Count 6.1 K/mm3 (4.4-11.0)
--- NOTE | 2024-10-18 14:46 | ED.VIS.CHEST ---
HPI <TAWNY Strickland - Last Filed: 10/18/24 18:07> History of Present Illness Chief Complaint: Chest Pain Narrative Narrative: 49-year-old female with PMH of HTN, HLD, DM2, CAD with 2 stents placed about 10 years ago presents with midsternal sharp chest pain and pressure that started around 11:30 AM while sitting at hernia. Pain has been constant with no aggravating or alleviating factors. There is no radiation. There is no shortness of breath or nausea or vomiting or diaphoresis. No fever or upper respiratory symptoms. No abdominal or flank pain. She states about 10 years ago 2 stents were put in at [facility]. Since then she has had intermittent chest pain and reports having a normal stress test. She has no history of DVT/PE, no leg pain or swelling, no recent surgery or travel, no hormone use, no hemoptysis. PFSH <TAWNY Strickland - Last Filed: 10/18/24 18:07> PFSH Medical History Chronic insomnia PTSD (post-traumatic stress disorder) Generalized anxiety disorder Bipolar 2 disorder, major depressive episode Physical exam, pre-employment Hodgkin lymphoma Non-smoker Hypertension Chest pain CAD (coronary artery disease) TONIO (obstructive sleep apnea) Asthma Gastroesophageal reflux disease Diabetes mellitus, type II Morbid obesity with BMI of 40.0-44.9, adult Hypothyroidism (acquired) Family history of heart disease Home Medications ?Medication ?Instructions ?Recorded ?Last Taken ?Type aspirin 81 mg chewable tablet 81 mg PO DAILY@0800 ##30 11/20/14 06/05/21 10:00 Rx atorvastatin 20 mg tablet 20 mg PO DAILY@2200 #30 tabs 11/20/14 04/16/16 Rx carvedilol 3.125 mg tablet 12.5 mg PO BID 12/16/14 06/05/21 10:00 History melatonin 10 mg sublingual tablet 10 mg PO QHS 08/21/18 Unknown History cevimeline 30 mg capsule 30 mg PO TID 02/11/23 Unknown History clonazepam 1 mg tablet 1 mg PO QHS 02/11/23 Unknown History armodafinil 200 mg tablet 200 mg PO DAILY 01/01/24 Unknown History gabapentin 600 mg tablet 1,200 mg PO QHS 01/01/24 Unknown History levothyroxine 137 mcg tablet 137 mcg PO MOTUWETHFR 01/01/24 Unknown History (Euthyrox) levothyroxine 137 mcg tablet 205.5 mcg PO .sasu 01/01/24 Unknown History (Euthyrox) ondansetron 4 mg disintegrating 4 mg PO Q8H PRN nausea and vomiting 01/01/24 Unknown History tablet pantoprazole 40 mg tablet,delayed 40 mg PO BID 01/01/24 Unknown History release cariprazine 3 mg capsule (Vraylar) 3 mg PO DAILY 30 days #30 caps 04/27/24 Unknown Rx meloxicam 15 mg tablet 15 mg PO DAILY 04/27/24 Unknown History metformin 500 mg tablet 500 mg PO BID 04/27/24 Unknown History topiramate 25 mg tablet 25 mg PO QHS #90 tabs 04/27/24 Unknown Rx Allergy/AdvReac Type Severity Reaction Status Date / Time venlafaxine (From Effexor) Allergy Mild Other Verified 10/18/24 14:19 diphenhydramine HCl (From AdvReac Other Verified 10/18/24 14:19 Benadryl) doxycycline AdvReac Nausea/Vom/ Verified 10/18/24 14:19 Diarrhea promethazine HCl (From AdvReac Nausea Verified 10/18/24 14:19 Phenergan) sumatriptan (From Imitrex) AdvReac Other Verified 10/18/24 14:19 sumatriptan succinate (From AdvReac Other Verified 10/18/24 14:19 Imitrex) tramadol (From Ultram) AdvReac Other Verified 10/18/24 14:19 Family History (Updated 04/27/24 @ 11:12 by Jagruti Rivera) Other Alcoholism Anxiety Asthma Blood clot in vein Cancer Depression Diabetes Heart disease Hypertension Mental disorder Myocardial infarction Ovarian cancer Psychiatric care Thyroid disorder Surgical History History of carpal tunnel release of both wrists H/O: hysterectomy History of thyroidectomy History of cholecystectomy Social History (Updated 04/27/24 @ 11:14 by Jagruti Rivera) Smoking Status: Never smoker alcohol intake: never substance use type: does not use what type of physical activity do you participate in: walking ROS <TAWNY Strickland - Last Filed: 10/18/24 18:07> ROS ED ROS Narrative Constitutional: Negative for fever, chills, malaise. CVS: Positive for chest pain. Negative for palpitations, syncope. Respiratory: Negative for shortness of breath, cough, orthopnea. GI: Negative for abdominal pain, nausea, vomiting. EXAM <TAWNY Strickland - Last Filed: 10/18/24 18:07> Physical Exam Narrative Exam Narrative: CONST: Patient sitting in no acute distress. EYES: Normal inspection. NECK: Normal inspection. RESP: No respiratory distress, CTAB. CVS: Regular rate and rhythm, no murmur, no gallop. ABD: Soft and nontender, no guarding or rebound, nondistended. SKIN: Color normal, no rash, warm, dry, intact. EXTREMITIES: Normal appearance, no pedal edema. NEURO: Alert and answering questions appropriately. PSYCH: Normal affect. Const Vital Signs: 10/18/24 14:19 10/18/24 15:11 10/18/24 15:11 Temperature 98.9 F Temperature Source Oral Pulse Rate 79 80 Pulse Rate [Lying] Pulse Rate [Sitting (for 1 minute prior to obtaining)] Pulse Rate [Standing (for 1 minute prior to obtaining)] Respiratory Rate 18 18 Respiratory Effort Blood Pressure 151/88 H 128/91 H Blood Pressure [Lying] Blood Pressure [Sitting (for 1 minute prior to obtaining)] Blood Pressure [Standing (for 1 minute prior to obtaining)] Blood Pressure Mean 109 103 Blood Pressure Mean [Lying] Blood Pressure Mean [Sitting (for 1 minute prior to obtaining)] Blood Pressure Mean [Standing (for 1 minute prior to obtaining)] Pulse Ox 100 97 97 Oxygen Delivery Method Room Air Room Air Room Air 10/18/24 15:11 10/18/24 15:25 10/18/24 18:03 Temperature 98.2 F Temperature Source Pulse Rate 66 Pulse Rate [Lying] 74 Pulse Rate [Sitting (for 1 minute prior to obtaining)] 78 Pulse Rate [Standing (for 1 minute prior to obtaining)] 86 Respiratory Rate 13 Respiratory Effort Normal Non-Labored Blood Pressure 105/89 H Blood Pressure [Lying] 123/76 H Blood Pressure [Sitting (for 1 minute prior to obtaining)] 125/91 H Blood Pressure [Standing (for 1 minute prior to obtaining)] 130/82 H Blood Pressure Mean 94 Blood Pressure Mean [Lying] 91 Blood Pressure Mean [Sitting (for 1 minute prior to obtaining)] 102 Blood Pressure Mean [Standing (for 1 minute prior to obtaining)] 98 Pulse Ox 98 Oxygen Delivery Method <Dr. Torey Irene MD - Last Filed: 10/18/24 19:28> Physical Exam Const Vital Signs: 10/18/24 14:19 10/18/24 15:11 10/18/24 15:11 Temperature 98.9 F Temperature Source Oral Pulse Rate 79 80 Pulse Rate [Lying] Pulse Rate [Sitting (for 1 minute prior to obtaining)] Pulse Rate [Standing (for 1 minute prior to obtaining)] Respiratory Rate 18 18 Respiratory Effort Blood Pressure 151/88 H 128/91 H Blood Pressure [Lying] Blood Pressure [Sitting (for 1 minute prior to obtaining)] Blood Pressure [Standing (for 1 minute prior to obtaining)] Blood Pressure Mean 109 103 Blood Pressure Mean [Lying] Blood Pressure Mean [Sitting (for 1 minute prior to obtaining)] Blood Pressure Mean [Standing (for 1 minute prior to obtaining)] Pulse Ox 100 97 97 Oxygen Delivery Method Room Air Room Air Room Air 10/18/24 15:11 10/18/24 15:25 10/18/24 18:03 Temperature 98.2 F Temperature Source Pulse Rate 66 Pulse Rate [Lying] 74 Pulse Rate [Sitting (for 1 minute prior to obtaining)] 78 Pulse Rate [Standing (for 1 minute prior to obtaining)] 86 Respiratory Rate 13 Respiratory Effort Normal Non-Labored Blood Pressure 105/89 H Blood Pressure [Lying] 123/76 H Blood Pressure [Sitting (for 1 minute prior to obtaining)] 125/91 H Blood Pressure [Standing (for 1 minute prior to obtaining)] 130/82 H Blood Pressure Mean 94 Blood Pressure Mean [Lying] 91 Blood Pressure Mean [Sitting (for 1 minute prior to obtaining)] 102 Blood Pressure Mean [Standing (for 1 minute prior to obtaining)] 98 Pulse Ox 98 Oxygen Delivery Method MDM <TAWNY Strickland - Last Filed: 10/18/24 18:07> CRISTHIAN MORROW Narrative Medical decision making narrative: History gathered from: Patient and spouse Differential includes but not limited to ACS, GERD, pneumonia, anxiety 49-year-old female was evaluated for chest pain. She has a history of coronary artery disease. She appears well and nontoxic and is afebrile and hemodynamically stable. Her exam is benign. I ordered aspirin and a cardiac workup. EKG is sinus rhythm with inversions in V1 through V3 but appears unchanged from previous. There is no acute ischemic changes. Serial cardiac enzymes are 4 and 3 which rules out ACS. Basic labs are unremarkable. CXR negative she has. She is PERC negative so I did not order D-dimer. While here she reported feeling dizzy with head movements described as brief room spinning. The attending performed an Mary Kate remover with resolution of her symptoms so I think this is BPPV. She has a normal neurological exam and no indication for CT scan because I do not suspect a central process. Patient is comfortable going home and will follow-up with her primary care and established audiovisual technician. Return precautions discussed and she was discharged in stable condition. I have personally performed a face to face assessment of the patient and have reviewed the ELI Note. I performed a substantive portion of the visit including all aspects of the following. My funes findings include: History is remarkable for sharp central chest pain rating to the back that started at 1130 while sitting in hindu. She had no associated symptoms. She did report transient dizziness. She states the room was spinning. She denied double vision. She had slight blurred vision. She denies trouble with speech or swallowing. Denies paresthesia, anesthesia or motor weakness. She denies history of vertigo. She denies orthostatic symptoms. Patient states she is concerned because this pain is similar to the pain she experienced when she had ME and placement of 2 stents. Patient has history of posttraumatic stress disorder, bipolar affective disorder, BMI 32.8, type 2 diabetes, reflux, asthma and coronary disease. There is also a history of obstructive sleep apnea. Exam is remarkable for flat affect. HEENT exam is remarkable for hose on nystagmus with lateral gaze to the right and left which would suggest peripheral vertigo. She presently is denying symptoms. TMs are normal. External auditory canal is open. Posterior pharynx out erythema or exudate. Heart is regular. Rate is normal. There is no murmur, gallop or rub. Lungs are close patient with symmetric breath sounds. Patient alert orient x 3. Cranials 2 through 12 intact. Motor sensor intact. There is no dysmetria. The eye askew test was negative. Lesvia-Hallpike maneuver was positive with patient's head to the right only. Medical Decision Making in light of her complaining of chest pain similar to when she had a cardiac event EKG troponin and 2-hour troponin was obtained. History is not significant or highly likely of cardiac. Because of the positive Lesvia-Hallpike maneuver will perform Mary Kate maneuver. Wanted to review her prior records and laboratory test prior to performing the maneuver. Other additions or changes: Mary Kate maneuver was performed. When patient's head was to the right she had no symptoms. When the head was to the left she had symptoms with horizontal nystagmus and fast component to the right that fatigued. Will reassess in 5 to 10 minutes. Total time for Mary Kate maneuver 10 minutes. Patient was reassessed at 1638. Patient's symptoms are resolved. 1 second troponin comes back and if normal she will need to walk and assess her ability to walk without having vertigo or falling. Lab Data Attestation: I reviewed the patient's lab results. Labs: Laboratory Results - last 24 hr 10/18/24 10/18/24 14:36 16:05 WBC 6.1 RBC 4.43 Hgb 12.9 Hct 37.5 MCV 84.7 MCH 29.1 MCHC 34.4 RDW Std Deviation 41.3 RDW Coeff of Noman 13.5 Plt Count 179 MPV 9.5 Immature Gran % (Auto) 0.300 Neut % (Auto) 70.1 H Lymph % (Auto) 16.7 L Cook % (Auto) 6.3 Eos % (Auto) 5.8 H Baso % (Auto) 0.8 Absolute Neuts (auto) 4.3 Absolute Lymphs (auto) 1.01 Nucleated RBC % 0 Sodium 140 Potassium 3.8 Chloride 105 Carbon Dioxide 29.0 Anion Gap 5 BUN 9 Creatinine 0.72 Estim Creat Clear Calc 106.66 Est GFR (MDRD) Af Amer 111 Est GFR (MDRD) Non-Af 92 BUN/Creatinine Ratio 12.4 Glucose 131 H Calcium 9.4 Troponin I High Sens 4 3 Radiography Diagnostic Testing: Clinical Impression(s) from Imaging Studies Chest X-Ray 10/18/24 14:35 IMPRESSION: No radiographic evidence of acute cardiopulmonary disease. Electronically Signed: Shoaib Geller MD at 15:01 EST , ED attending interpretation of 1 view chest x-ray shows normal heart size, no acute infiltrate edema or effusion. EKG Initial EKG: Attestation: I personally reviewed and interpreted this EKG as follows: Interpretation: Sinus Rhythm Comments: Normal sinus rhythm at 85 bpm T wave inversions in V1, V2, V3 No STEMI <Dr. Torey Irene MD - Last Filed: 10/18/24 19:28> [facility] MDM Narrative Medical decision making narrative: I have personally performed a face to face assessment of the patient and have reviewed the ELI Note. I performed a substantive portion of the visit including all aspects of the following. My funes findings include: History is remarkable for sharp central chest pain rating to the back that started at 1130 while sitting in hindu. She had no associated symptoms. She did report transient dizziness. She states the room was spinning. She denied double vision. She had slight blurred vision. She denies trouble with speech or swallowing. Denies paresthesia, anesthesia or motor weakness. She denies history of vertigo. She denies orthostatic symptoms. Patient states she is concerned because this pain is similar to the pain she experienced when she had ME and placement of 2 stents. Patient has history of posttraumatic stress disorder, bipolar affective disorder, BMI 32.8, type 2 diabetes, reflux, asthma and coronary disease. There is also a history of obstructive sleep apnea. Exam is remarkable for flat affect. HEENT exam is remarkable for hose on nystagmus with lateral gaze to the right and left which would suggest peripheral vertigo. She presently is denying symptoms. TMs are normal. External auditory canal is open. Posterior pharynx out erythema or exudate. Heart is regular. Rate is normal. There is no murmur, gallop or rub. Lungs are close patient with symmetric breath sounds. Patient alert orient x 3. Cranials 2 through 12 intact. Motor sensor intact. There is no dysmetria. The eye askew test was negative. Higden-Hallpike maneuver was positive with patient's head to the right only. Medical Decision Making in light of her complaining of chest pain similar to when she had a cardiac event EKG troponin and 2-hour troponin was obtained. History is not significant or highly likely of cardiac. Because of the positive Higden-Hallpike maneuver will perform Mary Kate maneuver. Wanted to review her prior records and laboratory test prior to performing the maneuver. Other additions or changes: Mary Kate maneuver was performed. When patient's head was to the right she had no symptoms. When the head was to the left she had symptoms with horizontal nystagmus and fast component to the right that fatigued. Will reassess in 5 to 10 minutes. Total time for Mary Kate maneuver 10 minutes. Patient was reassessed at 1638. Patient's symptoms are resolved. 1 second troponin comes back and if normal she will need to walk and assess her ability to walk without having vertigo or falling. Lab Data Lab results narrative: CBC is unremarkable. Electrolyte panel is unremarkable with the exception of a glucose of 131 with a normal CO2 anion gap. Troponin is normal at 4. 2-hour troponin pending. Labs: Laboratory Results - last 24 hr 10/18/24 10/18/24 14:36 16:05 WBC 6.1 RBC 4.43 Hgb 12.9 Hct 37.5 MCV 84.7 MCH 29.1 MCHC 34.4 RDW Std Deviation 41.3 RDW Coeff of Noman 13.5 Plt Count 179 MPV 9.5 Immature Gran % (Auto) 0.300 Neut % (Auto) 70.1 H Lymph % (Auto) 16.7 L Cook % (Auto) 6.3 Eos % (Auto) 5.8 H Baso % (Auto) 0.8 Absolute Neuts (auto) 4.3 Absolute Lymphs (auto) 1.01 Nucleated RBC % 0 Sodium 140 Potassium 3.8 Chloride 105 Carbon Dioxide 29.0 Anion Gap 5 BUN 9 Creatinine 0.72 Estim Creat Clear Calc 106.66 Est GFR (MDRD) Af Amer 111 Est GFR (MDRD) Non-Af 92 BUN/Creatinine Ratio 12.4 Glucose 131 H Calcium 9.4 Troponin I High Sens 4 3 Radiography Chest X-Ray - ED: 1 View, Read by ED Physician, Unchanged, Normal, Heart, Lungs, Mediastinum, Bony Structures, No Acute Disease and Chronic Changes (Surgical clips noted secondary to thyroidectomy.) Diagnostic Testing: Clinical Impression(s) from Imaging Studies Chest X-Ray 10/18/24 14:35 IMPRESSION: No radiographic evidence of acute cardiopulmonary disease. Electronically Signed: Shoaib Geller MD at 15:01 EST , Discharge Plan Triage Chief Complaint: Chest Pain ED Midlevel Provider: Glory Ashley ED Provider: Torey Irene Dx/Rx/DC Orders Clinical Impression: Chest pain, Benign paroxysmal positional vertigo, CAD (coronary artery disease), Bipolar disorder, Diabetes mellitus, type II, Hypothyroidism (acquired) Instructions: ED Chest Pain, Noncardiac, ED BPV Vertigo Prescriptions: No Action cevimeline 30 mg capsule 30 mg PO TID clonazepam 1 mg tablet 1 mg PO QHS meloxicam 15 mg tablet 15 mg PO DAILY topiramate 25 mg tablet 25 mg PO QHS Qty: 90 1RF Vraylar 3 mg capsule 3 mg PO DAILY 30 Days Qty: 30 1RF atorvastatin 20 MG tablet 20 mg PO DAILY@2200 Qty: 30 0RF Patient Comments: cholesterol aspirin 81 MG tablet,chewable 81 mg PO DAILY@0800 Qty: 30 0RF Patient Comments: [facility] carvedilol 3.125 MG tablet 12.5 mg PO BID Patient Comments: blood pressure/heart metformin 500 mg tablet 500 mg PO BID Patient Comments: DIABETES melatonin 10 MG tablet 10 mg PO QHS gabapentin 600 mg tablet 1,200 mg PO QHS levothyroxine [Euthyrox] 137 mcg tablet 137 mcg PO MOTUWETHFR levothyroxine [Euthyrox] 137 mcg tablet 205.5 mcg PO .sasu Rx Instructions: orally SASU; armodafinil 200 mg tablet 200 mg PO DAILY ondansetron 4 mg tablet,disintegrating 4 mg PO Q8H PRN (Reason: nausea and vomiting) pantoprazole 40 MG tablet 40 mg PO BID Primary Care Provider: Татьяна Sprague NP Referrals: Татьяна Sprague NP, HEARING AIDE TECHNICIAN-C [Primary Care Provider] - Activity Restrictions/Additional Instructions: Today your cardiac workup looks normal. I recommend following up with your primary care doctor and your audiovisual technician. Your vertigo was treated with an Mary Kate maneuver. If it reoccurs or becomes worse please be reevaluated. Print Language: Japanese Disposition Disposition: Home, Self Care Discharge Date/Time: 10/18/24 17:53
[2024-10-18 15:02] LABS: Anion Gap 5 (5-15); BUN 9 mg/dL (7-18); BUN/Creat Ratio 12.4 RATIO (10-20); Calcium,Total 9.4 mg/dL (8.5-10.1); Chloride 105 mmol/L (98-107); Creatinine, Serum 0.72 mg/dL (0.55-1.02); EST Glomerular Filtration Rate 92 mL/min (>60); Est Glom Filt Rate - Afr Amer 111 mL/min (>60); Estimated Creatinine Clearance 106.66 ml/min; Glucose 131 mg/dL (74-106); Potassium 3.8 mmol/L (3.5-5.1); Sodium Level 140 mmol/L (136-145); Troponin-I HS (w/2H Reflex) 4 pg/mL (3.0-54.0)
[2024-10-18] MEDS: Aspirin 81 MG TAB.CHEW 243 MG PO (15:09)
[2024-10-18 15:11] VITALS: BP 128/91; PULSE 80; RESP 18; O2SAT 97
[2024-10-18 15:25] VITALS: BP 123/76; BP 125/91; BP 130/82; PULSE 74; PULSE 78; PULSE 86
[2024-10-18 16:39] LABS: Reflex Troponin-HS? (from REC) Y
[2024-10-18 17:37] LABS: Troponin-I HS 3 pg/mL (3.0-54.0)
[2024-10-18 18:03] VITALS: BP 105/89; PULSE 66; RESP 13; TEMP 36.8; O2SAT 98
== END 2024-10-18 17:53 | disposition home or self-care (01) ==
PROVIDERS: Emergency Provider Emergency Medicine; PCP Nurse Practitioner Family; Visit Provider Emergency Medicine
DX: R07.9 Chest pain, unspecified (principal); F31.9 Bipolar disorder, unspecified; E11.9 Type 2 diabetes mellitus without complications; E89.0 Postprocedural hypothyroidism; Z90.710 Acquired absence of both cervix and uterus; I10 Essential (primary) hypertension; I25.10 Atherosclerotic heart disease of native coronary artery without angina pectoris; E78.5 Hyperlipidemia, unspecified; H81.10 Benign paroxysmal vertigo, unspecified ear; Z90.49 Acquired absence of other specified parts of digestive tract; K21.9 Gastro-esophageal reflux disease without esophagitis; Z95.5 Presence of coronary angioplasty implant and graft; Z79.82 Long term (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
CPT/HCPCS: 71045; 80048; 84484; 85025; 93005; 99285; A4216

== ENCOUNTER 2024-12-23 12:49 | Emergency (ER) | payer OTHER, SELFPAY ==
[2024-12-23 12:49] VITALS: BP 124/83; PULSE 85; RESP 17; TEMP 36.6; O2SAT 100; BMI 33.1
--- NOTE | 2024-12-23 12:53 | EKG12_ITS ---
Test Reason : CP Blood Pressure : */* mmHG Vent. Rate : 83 BPM Atrial Rate : 83 BPM P-R Int : 160 ms QRS Dur : 80 ms QT Int : 388 ms P-R-T Axes : 22 32 35 degrees QTcB Int : 455 ms Normal sinus rhythm Cannot rule out Inferior infarct , age undetermined Abnormal ECG Confirmed by VERA CRANE, EWA ([id number]), food expeditor GUIDO LEACH ([id number]) on 12/25/2024 9:27:46 AM Referred By: Confirmed By: EWA GAMEZ MD
--- NOTE | 2024-12-23 13:15 | RAD_ITS ---
PROCEDURE: PA and lateral chest radiographs were obtained. 12/23/2024 REASON FOR EXAM: CHEST PAIN TECHNIQUE: And lateral views of the chest. COMPARISON: Comparison is made with prior study dated October 18, 2024. FINDINGS: Hardware: None Heart: Cardiac and mediastinal contours are stable. Lungs: Increased linear markings at the right lung base as compared to prior study suggestive of linear atelectasis and/or mild scarring. No acute infiltrate is seen. Bones: The bones are unremarkable. Other: RAD/Chest 1 View (Portable) IMPRESSION: Increased linear markings in the right middle lobe suggestive of linear atelect asis and/or mild scarring. Reading Location: [place] [id number]
[2024-12-23 13:24] LABS: Absolute Lymphocyte Count 0.89 X10^3/uL (0.83-4.51); Absolute Neutrophil Count 6.5 X10^3/uL (2.0-7.7); Basophil# 0.04 X10^3/uL; Basophil% 0.5 % (0-1); Eosinophils% 10.3 % (0-5); Hematocrit 39.4 % (37-47); Hemoglobin 13.8 g/dL (12.0-15.0); Lymphocyte # 0.89 X10^3/ul (0.83-4.51); Lymphocyte % 10.2 % (19-41); Mean Corpuscular Hgb 29.9 pg (27.0-32.0); Mean Corpuscular Volume 85.3 fL (81-99); Mean Platelet Vol. 9.7 fl (6.2-12.0); Monocyte# 0.39 X10^3/uL; Monocyte% 4.5 % (0-10); NRBC Flagged by Analyzer 0 % (0-5); Platelet Count 198 K/mm3 (150-450); RBC Distribution Width CV 13.9 % (11.6-14.6); RBC Distribution Width SD 42.6 fl (35.1-43.9); Red Blood Count 4.62 M/mm3 (4.2-5.4); White Blood Count 8.8 K/mm3 (4.4-11.0)
[2024-12-23 13:55] LABS: Anion Gap 10 (5-15); BUN 9 mg/dL (4-19); BUN/Creat Ratio 12.2 RATIO (10-20); Calcium,Total 8.9 mg/dL (7.6-11.0); Carbon Dioxide 24.5 mmol/L (21.0-32.0); Chloride 104 mmol/L (98-108); Creatinine, Serum 0.73 mg/dL (0.70-1.20); EST Glomerular Filtration Rate 102 (>60); Estimated Creatinine Clearance 105.74 ml/min (50-250); Glucose 138 mg/dL (70-99); Potassium 4.1 mmol/L (3.3-5.1); Sodium Level 139 mmol/L (133-145); Troponin T High Sensitivity < 6 ng/L (<=14)
[2024-12-23 14:03] VITALS: BP 113/63; PULSE 82; RESP 20; O2SAT 96
--- NOTE | 2024-12-23 14:09 | ED.VIS.CHEST ---
HPI History of Present Illness Chief Complaint: Chest Pain Detail of Chief Complaint: Chest pain Informant: patient Narrative Narrative: Patient presents to the emergency department complaint of chest pain that started this afternoon approximately 12:30 PM. Patient states that she was sitting on a couch when she had sudden onset of chest discomfort across both sides of the chest underneath both breast and radiated through to her back. The pain was sharp and worse with certain movements. Some of the pain radiated into her left shoulder and half-way down her left arm. She has history of coronary artery disease with 2 stents placed at age 39. Patient denies exertional symptoms leading up to today. Patient states that she stayed home from work today because she got sick with some nausea and vomiting and some diarrhea today. Patient denies recent travel or surgery and has no history of PE or DVT. Patient states that she had history of non-Hodgkin's lymphoma 2 years ago. Yesterday she happened to have a CT scan of the chest abdomen and pelvis to evaluate for possible recurrence and her CTs were negative from what the patient tells me. Patient takes a baby aspirin daily. No other blood thinners. She denies recent illness otherwise [facility] Medical History Chronic insomnia PTSD (post-traumatic stress disorder) Generalized anxiety disorder Bipolar 2 disorder, major depressive episode Physical exam, pre-employment Hodgkin lymphoma Non-smoker Hypertension Chest pain CAD (coronary artery disease) TONIO (obstructive sleep apnea) Asthma Gastroesophageal reflux disease Diabetes mellitus, type II Morbid obesity with BMI of 40.0-44.9, adult Hypothyroidism (acquired) Family history of heart disease Home Medications ?Medication ?Instructions ?Recorded ?Last Taken ?Type aspirin 81 mg chewable tablet 81 mg PO DAILY@0800 ##30 11/20/14 06/05/21 10:00 Rx atorvastatin 20 mg tablet 20 mg PO DAILY@2200 #30 tabs 11/20/14 04/16/16 Rx carvedilol 3.125 mg tablet 12.5 mg PO BID 12/16/14 06/05/21 10:00 History melatonin 10 mg sublingual tablet 10 mg PO QHS 08/21/18 Unknown History cevimeline 30 mg capsule 30 mg PO TID 02/11/23 Unknown History clonazepam 1 mg tablet 1 mg PO QHS 02/11/23 Unknown History armodafinil 200 mg tablet 200 mg PO DAILY 01/01/24 Unknown History gabapentin 600 mg tablet 1,200 mg PO QHS 01/01/24 Unknown History levothyroxine 137 mcg tablet 137 mcg PO MOTUWETHFR 01/01/24 Unknown History (Euthyrox) levothyroxine 137 mcg tablet 205.5 mcg PO .sasu 01/01/24 Unknown History (Euthyrox) ondansetron 4 mg disintegrating 4 mg PO Q8H PRN nausea and vomiting 01/01/24 Unknown History tablet pantoprazole 40 mg tablet,delayed 40 mg PO BID 01/01/24 Unknown History release cariprazine 3 mg capsule (Vraylar) 3 mg PO DAILY 30 days #30 caps 04/27/24 Unknown Rx meloxicam 15 mg tablet 15 mg PO DAILY 04/27/24 Unknown History metformin 500 mg tablet 500 mg PO BID 04/27/24 Unknown History topiramate 25 mg tablet 25 mg PO QHS #90 tabs 04/27/24 Unknown Rx Allergy/AdvReac Type Severity Reaction Status Date / Time venlafaxine (From Effexor) Allergy Mild Other Verified 12/23/24 12:51 diphenhydramine HCl (From AdvReac Other Verified 12/23/24 12:51 Benadryl) doxycycline AdvReac Nausea/Vom/ Verified 12/23/24 12:51 Diarrhea promethazine HCl (From AdvReac Nausea Verified 12/23/24 12:51 Phenergan) sumatriptan (From Imitrex) AdvReac Other Verified 12/23/24 12:51 sumatriptan succinate (From AdvReac Other Verified 12/23/24 12:51 Imitrex) tramadol (From Ultram) AdvReac Other Verified 12/23/24 12:51 Family History Other Alcoholism Anxiety Asthma Blood clot in vein Cancer Depression Diabetes Heart disease Hypertension Mental disorder Myocardial infarction Ovarian cancer Psychiatric care Thyroid disorder Surgical History History of carpal tunnel release of both wrists H/O: hysterectomy History of thyroidectomy History of cholecystectomy Social History (Updated 12/23/24 @ 14:17 by Kika Kyle) household members: spouse current occupational status: employed Smoking Status: Never smoker alcohol intake: never substance use type: does not use what type of physical activity do you participate in: walking ROS ROS ED Review of Systems ROS Unobtainable: other Constitutional Constitutional ED: Reports lethargy; Denies chills, fever(s), sweats or weight loss Eyes Eyes: Denies blurry vision, change in vision or diplopia ENT ENT ED: Denies rhinorrhea or sore throat Cardiovascular Cardiovascular: Reports chest pain; Denies orthopnea or racing heartbeat Respiratory/Chest Respiratory/Chest: Denies cough, dyspnea, dyspnea on exertion, orthopnea or sputum Gastrointestinal Gastrointestinal: Denies abdominal pain, diarrhea, nausea or vomiting Genitourinary Genitourinary ED: Denies dysuria, hematuria or urinary frequency Musculoskeletal Musculoskeletal: Denies arthralgias, back pain, myalgias or neck pain Integumentary Denies abscess, Abrasions or rash Neurologic Neurologic: Denies headache(s) or weakness Psychiatric Psychiatric: Denies anxiety, depression or suicidal thoughts Endocrine Endocrinology: Denies polydipsia, polyphagia or polyuria Hematologic/Lymphatic Hematologic/Lymphatic: Denies easy bleeding, easy bruising or lymphadenopathy Allergic/Immunologic Allergic/Immunologic ED: Denies mouth swelling, tongue swelling or urticaria EXAM Physical Exam Const Vital Signs: 12/23/24 12:49 12/23/24 14:03 12/23/24 14:03 Temperature 97.9 F Temperature Source Oral Pulse Rate 85 82 Respiratory Rate 17 20 H Respiratory Effort Blood Pressure 124/83 H 113/63 Blood Pressure Mean 96 79 Pulse Ox 100 96 96 Oxygen Delivery Method Room Air Room Air Room Air 12/23/24 14:40 12/23/24 15:00 Temperature Temperature Source Pulse Rate 81 Respiratory Rate 17 Respiratory Effort Normal Non-Labored Blood Pressure 115/80 Blood Pressure Mean 91 Pulse Ox 98 Oxygen Delivery Method Positive well nourished and well developed General Appearance ED: well developed and NAD HEENT Reports TM's clear and moist mucous membranes normocephalic and atraumatic; Negative for trauma or tenderness Tympanic Membrane ED: Yes TM's clear Eyes PERRL and EOMs intact bilaterally General Eye ED: Negative for pale conjunctiva or scleral icterus Neck no lymphadenopathy, supple and no JVD General: Negative for tenderness Chest Wall inspection of chest normal and palpation of chest normal Chest: Negative for tenderness Resp normal respiratory effort and clear to auscultation bilaterally Effort and Inspection: Negative for respiratory distress or pain with movement Auscultation: Negative for rhonchi, wheezes or diminished lung sounds Cardio regular rate, regular rhythm, S1 normal heart sound, S2 normal heart sound and no murmurs Peripheral Pulses: pulses 2+ throughout GI normal to inspection, nondistended, normoactive bowel sounds, soft to palpation, non-tender, non-distended and no masses Back/Spine no CVA tenderness and no thoracic nor lumbar tenderness Extremity normal to inspection General Extremety ED: Negative for edema General Extremity: Negative for edema Neuro oriented x3, CN's II-XII intact bilaterally, no sensory deficits noted and gait normal Sensorium / Orientation: awake, alert, oriented to person, oriented to place and oriented to time Motor Exam: strength 5/5 throughout and strength abnormal Psych mental status grossly normal Skin no rashes or lesions noted and no wounds Heart Score History: Slightly/Non-Suspicious ECG: Normal Age: >45 - <65 years Risk Factors: >/= 3 Risk Factors or History of CAD Troponin: </= Normal Limit Score: 3 MDM MDM MDM Narrative Medical decision making narrative: Patient presents with chest pain that started around 12:30 PM. Now most of discomfort is resolved she does have some mild soreness. Patient has been in triage for some time as there were no beds available in nurses started protocol. Blood work did return with a CBC showing a white count of 8.8 hemoglobin 13.8 and platelet count of 198. Chemistries were unremarkable. First troponin was less than 6. Chest x-ray obtained showed maybe some linear atelectasis in the right lung otherwise nothing acute. Will obtain a delta troponin. Delta troponin was obtained was negative as well at less than 6. Patient currently pain-free and feels well back to her baseline. Suspicion for acute coronary syndrome is low. Her heart score was a 3 given her history of cardiac stenting. She has not had any exertional symptoms. I feel it is safe to send her home. She is advised to return if worsening pain, increasing shortness of breath or exertional symptoms or condition should worsen anyway. Lab Data Attestation: I reviewed the patient's lab results. Labs: Laboratory Results - last 24 hr 12/23/24 12/23/24 13:15 15:17 WBC 8.8 RBC 4.62 Hgb 13.8 Hct 39.4 MCV 85.3 MCH 29.9 MCHC 35.0 RDW Std Deviation 42.6 RDW Coeff of [place] 13.9 Plt Count 198 MPV 9.7 Immature Gran % (Auto) 0.500 Neut % (Auto) 74.0 H Lymph % (Auto) 10.2 L [place] % (Auto) 4.5 Eos % (Auto) 10.3 H Baso % (Auto) 0.5 Absolute Neuts (auto) 6.5 Absolute Lymphs (auto) 0.89 Nucleated RBC % 0 Sodium 139 Potassium 4.1 Chloride 104 Carbon Dioxide 24.5 Anion Gap 10 BUN 9 Creatinine 0.73 Estim Creat Clear Calc 105.74 Est GFR (MDRD) Non-Af 102 BUN/Creatinine Ratio 12.2 Glucose 138 H Calcium 8.9 Troponin T High Sens < 6 Troponin T Hi Sens 2 Hr < 6 Radiography Diagnostic Testing: Clinical Impression(s) from Imaging Studies Chest X-Ray 12/23/24 13:15 IMPRESSION: Increased linear markings in the right middle lobe suggestive of linear atelectasis and/or mild scarring. Reading Location: [place] [id number] 1 view chest x-ray obtained interpreted by myself as no evidence of infiltrate or pneumothorax or acute disease process. Radiology felt there was linear markings in the right middle lobe suggestive of linear atelectasis. EKG Initial EKG: Attestation: I personally reviewed and interpreted this EKG as follows: Comments: Sinus rhythm with ventricular rate of 83 bpm with no acute ST segment changes Discharge Plan Triage Chief Complaint: Chest Pain ED Provider: Dwayne Hermosillo Dx/Rx/DC Orders Clinical Impression: Chest pain Instructions: ED Chest Pain, Uncertain Cause Prescriptions: No Action cevimeline 30 mg capsule 30 mg PO TID clonazepam 1 mg tablet 1 mg PO QHS meloxicam 15 mg tablet 15 mg PO DAILY topiramate 25 mg tablet 25 mg PO QHS Qty: 90 1RF Vraylar 3 mg capsule 3 mg PO DAILY 30 Days Qty: 30 1RF atorvastatin 20 MG tablet 20 mg PO DAILY@2200 Qty: 30 0RF Patient Comments: cholesterol aspirin 81 MG tablet,chewable 81 mg PO DAILY@0800 Qty: 30 0RF Patient Comments: [facility] carvedilol 3.125 MG tablet 12.5 mg PO BID Patient Comments: blood pressure/heart metformin 500 mg tablet 500 mg PO BID Patient Comments: DIABETES melatonin 10 MG tablet 10 mg PO QHS gabapentin 600 mg tablet 1,200 mg PO QHS levothyroxine [Euthyrox] 137 mcg tablet 137 mcg PO MOTUWETHFR levothyroxine [Euthyrox] 137 mcg tablet 205.5 mcg PO .sasu Rx Instructions: orally SASU; armodafinil 200 mg tablet 200 mg PO DAILY ondansetron 4 mg tablet,disintegrating 4 mg PO Q8H PRN (Reason: nausea and vomiting) pantoprazole 40 MG tablet 40 mg PO BID Primary Care Provider: Татьяна Sprague NP Referrals: Татьяна Sprague NP, [employer] [Primary Care Provider] - 3-5 Days Print Language: Turkish Disposition Disposition: Home, Self Care
[2024-12-23 15:00] VITALS: BP 115/80; PULSE 81; RESP 17; O2SAT 98
[2024-12-23 15:46] LABS: Troponin T High Sens 2 HR < 6 ng/L (<=14)
[2024-12-23 15:53] VITALS: BP 134/82; PULSE 77; RESP 17; TEMP 36.2; O2SAT 96
== END 2024-12-23 16:02 | disposition home or self-care (01) ==
PROVIDERS: Emergency Provider Emergency Medicine; PCP Nurse Practitioner Family; Visit Provider Emergency Medicine
DX: R07.9 Chest pain, unspecified (principal); F31.9 Bipolar disorder, unspecified; E11.9 Type 2 diabetes mellitus without complications; Z82.49 Family history of ischemic heart disease and other diseases of the circulatory system; Z79.82 Long term (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; M25.512 Pain in left shoulder; I25.10 Atherosclerotic heart disease of native coronary artery without angina pectoris; Z95.5 Presence of coronary angioplasty implant and graft; G47.33 Obstructive sleep apnea (adult) (pediatric); E03.9 Hypothyroidism, unspecified; Z90.49 Acquired absence of other specified parts of digestive tract; Z90.710 Acquired absence of both cervix and uterus
CPT/HCPCS: 71045; 80048; 84484; 85025; 93005; 99284; A4216

== ENCOUNTER 2025-05-18 08:00 | Outpatient (RCR) | payer BC, SELFPAY ==
--- NOTE | 2025-05-18 09:05 | BH.SGPN.GN ---
Behaviors/Verbalizations/Mental Status: [] Eye contact is fair. Motor activity is appropriate. Appearance is casual. Speech is Appropriate. Mood is depressed. Affect is flat. Thoughts are linear and logical. No evidence of psychosis. Reviewed daily check in sheet pt reports 4/5 for suicidal ideations and 0/5 for intent. Risk assessment completed prior to group. Client Response/Progress/Benefit: [] Pt particiapted when prompted. Attentive. Daily symptom tracker notes 4/5 for anxiety and depression. Today was pt's first day in IOP and she briefly introduced herself. Stated that she had completed this IOP almost 2 years ago and found it very helpful however recently her mental health has decompensated. Overall goals are to reduce her depression and anxiety. Spoke very briefly and provided little detail on events leading to admission. No progress noted as this was her first day. Beneifted from group support, encouragement, and feedback. Narrative Note: []
--- NOTE | 2025-05-18 10:10 | BH.SGPN.GN ---
Behaviors/Verbalizations/Mental Status: []Pt alert and oriented, neatly dressed and groomed. Eye contact good. Motor activity appropriate. Speech within normal limits. Affect constricted, mood motivated and depressed. Thoughts linear, logical, no signs of hallucinations or delusions. Client Response/Progress/Benefit: [] Pt was an active participant AEB taking notes and engaging in group activity. Connected with the topic of pitfalls and listened to group discussion on barriers that prevent from choosing a healthier path to mental wellness. Group worked together to identify examples of personal pitfalls. These examples included; shutting down, not asking for help, negative thinking patterns, avoidance, and isolation. Pt benefited from group as Pt learned to better identify potential barriers to improving mental health symptoms. Identified personal barrier of internal stigma and fear of failure. Pt will continue IOP tx to prevent decompensation, improve daily functioning, and increase self-compassion. ? Narrative Note: []
--- NOTE | 2025-05-18 11:10 | BH.SGPN.GN ---
Behaviors/Verbalizations/Mental Status: []Client alert and oriented, casually dressed and groomed. Eye contact good. Motor activity appropriate. Speech within normal limits. Affect congruent, mood depressed, anxious. Thoughts linear, logical, no signs of hallucinations or delusions. Client Response/Progress/Benefit: [] Pt receptive of session, engaged throughout AEB Pt actively listening and contributing to discussion as well as taking notes.? Pt participated in the experiential activity and did well to communicate ideas with peers and manage emotions. Pt attentive as group processed how the emotions and perspective of the group impacted the activity. Pt admitted that she was frustrated at times, but pt was able to thought challenge and complete the activity with peers. Group worked together to identify different coping skills to help manage pitfalls. Pt identified a pitfall they struggle with as ?fear of failure?. Pt plans to work on their pitfall by challenging herself to find small positives in situations, as well as identify small areas of progress. Benefited from identifying personal pitfalls and strategies to overcome these pitfalls. Pt will continue IOP tx to prevent decompensation, improve daily functioning, and increase self-compassion. ? Narrative Note: []
--- NOTE | 2025-05-18 15:11 | BH.MDN ---
Multi-Disciplinary Note Note 30-min Individual: Time Started:: 09:00 Date: 05/18/25 Purpose of session/treatment goals addressed:: Purpose of session was to build rapport, gather background information, and discuss goals for IOP. Eye Contact:: Fair Motor Activity:: Slowed Appearance:: Neat Speech:: Appropriate Mood:: Depressed Affect:: Constricted Thoughts:: Linear, Logical and No evidence of hallucinations/delusions noted Staff Interventions:: CBT techniques, rapport building, strengths perspective, treatment planning and goal setting Client Response:: Client reported she is seeking IOP level of care because she has noticed that her mental health is starting to get to the point of potential hospitalization if she did not choose to do something about it. Client stated how she has been feeling recently was reminiscent of how she was feeling back in July 2024 when [facility] due to suicidal thoughts with plan. Client stated her plan at the time was to rent a hotel room and take all her medications with the intent to kill herself so that her would not be the one to find her. Client reported prior to trying any of this plan she opened up to her and then sought inpatient psychiatric care. Client stated after her hospitalization she had been doing a little bit better after some medication adjustments. Client stated her anxiety did start to worsen after discharge from inpatient care with starting to have some difficulty with leaving the home without significant worry that something bad would happen. Client reported she noticed her depressed symptoms started to worsen and decompensate about 4 months ago. Client stated she was having difficulty getting out of bed and started to miss work. Client reported she was woke up at work due to not showing up. 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 Client endorses depressed mood with no energy, somewhat decreased appetite, no concentration, feelings of hopelessness and worthlessness, decreased memory, and no motivation. Client stated it is a chore to get out of bed. Client stated her anxiety is keeping her isolated because she has constant irrational fears that either something bad will happen to her somebody she cares about. Client stated for example she worries if she gets in the car she is can have car accident or if she is at [employer] she worries something is going to happen with a pipe and somebody is getting get hurt. Client stated her has been trying to push her to be social and get out of the house but client stated she often tries to find excuses to not leave. Client stated she has been trying to engage in skills she has learned previously in IOP like journaling, opposite action, and engaging in self-care. Client stated she recognizes using the skills is helping her prevent further decompensation but does not feel like she is quite like herself right now. Client stated she has been more open and honest with her about her mental health and recently has been more upfront with her youngest daughter about client's mental health. Client stated while she is in IOP she would like to work on decreasing depression and anxiety, her stop to have suicidal thoughts, and get back to living again. Risks/Concerns:: Client does report suicidal thoughts several times a week. Client denies plan or intention to date. Client stated she does have access to her medication at this time, but is willing to communicate to her to take over managing her medications at this time. Client stated this is what she did last time she was in program and found it to be helpful. Client feels able to keep herself safe. Progress Toward Goals/Plan:: No progress observed, today is first day in IOP. Client is seeking treatment due to increased suicidal thoughts, increased depression, worsening anxiety, and decrease in daily functioning. Client reported goals while in IOP are to decrease depression, decrease anxiety, and have no suicidal thoughts. Plan is for client to continue IOP to improve daily functioning, decrease depression and anxiety, and prevent decompensation. Time Stopped:: 09:30
--- NOTE | 2025-05-19 09:05 | BH.SGPN.GN ---
Behaviors/Verbalizations/Mental Status: [] Eye contact is good. Motor activity is appropriate. Appearance is casual. Speech is Appropriate. Mood is depressed. Affect is congruent. Thoughts are linear and logical. No evidence of psychosis. Reviewed daily check in sheet and pt reports 4/5 for suicidal thoughts and 0/5 for intent. This has been baseline since admission and risk assessment. No immediate danger. Client Response/Progress/Benefit: [] Pt participated when prompted. Attentive. Daily symptom tracker notes 4/5 for depression and anxiety. Shared with the group that she initiated a crucial conversation with her last night regarding her mental health. Briefly elaborated on the reasons for the conversation as well as difficulty being vulnerable. Overall she believed that the conversation went well. Progress noted. Benefited from group support, encouragement, and feedback. Will continue in IOP to maintain safety, increase healthy coping, and prevent decompensation. Narrative Note: []
--- NOTE | 2025-05-19 11:10 | BH.SGPN.GN ---
Behaviors/Verbalizations/Mental Status: []Eye contact is good. Motor activity is appropriate. Appearance is casual. Speech is Appropriate. Mood is depressed. Affect is congruent. Thoughts are linear and logical. No evidence of psychosis. Client Response/Progress/Benefit: [] Pt was an engaged participant AEB listening attentively to others and providing input throughout group. Pt along with group members, identified strategies to manage inappropriate guilt. Identified a personal example of inappropriate guilt as ?not being able to do things because of my mental health.? Pt wants to work on combatting inappropriate guilt by challenging my perspective and negative thoughts when feeling inappropriate guilt.? Pt seemed to benefit from learning about strategies to manage appropriate and inappropriate guilt. Pt to continue IOP tx to prevent decompensation, improve daily functioning, and reduce negative thinking patterns. Narrative Note: []
--- NOTE | 2025-05-19 15:09 | BH.MDN_ITS ---
Multi-Disciplinary Note Note 45-min Individual: Time Started:: 10:20 Date: 05/19/25 Purpose of session/treatment goals addressed:: Purpose of session was to address goals 1 and 2 from MTP. Eye Contact:: Fair Motor Activity:: Appropriate Appearance:: Casual Speech:: Appropriate Mood:: Depressed Affect:: Constricted Thoughts:: Linear, Logical and No evidence of hallucinations/delusions noted Staff Interventions:: thought challenging, psychoeducation on: (fear ladder and exposure therapy), CBT techniques, rapport building, strengths perspective and goal setting Client Response:: Client reported yesterday she had to have tough condition with her in regards to letting him know that she has been stockpiling her medication unbeknownst to him. Client stated she knew she had had the transition since this ad writer was going to be contacting client and client's to confirm that he has agreed to start managing clients medication until client has no more suicidal ideation. Client reported it was really hard to have to communicate to her how she has been feeling and why she has been saving medication. Client stated however she is happy that she has communicated this to him because she recognizes having access to all this medication would be unhealthy and potentially risky. Therapist provided psychoeducation about exposure goals and explained a fear ladder with client. Client could connect with examples of fear ladders because it is something that she is experiencing regards to her fear keeping her at home. Client stated she will often try to come up with excuses and reasons to not leave her at home [place] use she does not want to have to experience feeling uncomfortable. Client reported if she has to leave the house for an eye appointment or some other events she will often be anxious for several days in advance in anticipation of having to leave. Client stated that even when she is driving as a passenger with her she will have to find ways to distract herself because she will get too anxious. Client expressed understanding of the fear latter concept and agreeable to start reflecting on what fears she is currently experiencing that are impacting her ability to function. Therapist and client discussed what client's current date looks like when she is not in IOP. Client stated every day it is a chore to get out of bed but does force herself eventually to get moving. Client stated she tries to take a shower and get changed each morning. Client stated she often will focus on getting the identified chores for the day completed in the morning and sometimes will journal or do the Bible study at home. Client stated around 11 AM or 12 PM she will sit on her couch and spend the next 4 to 5 hours on her phone. Client reported she just spends time scrolling on different social media websites and does not get much accomplished. Client stated she eventually gave her phone to either eat dinner or restaurant cook and then often gets back on her phone after dinner. Client reported she has not tried to do anything else because she does not really find jenny in doing other activities. Client open to starting to practice interrupting this depressed cycle by choosing at least 1 thing from an activity list each day to interrupt her phone usage. Client benefit activities that she is willing to try include reading, getting outside, playing board games, and cooking. Risks/Concerns:: Client does report suicidal thoughts several times a week. Client denies active suicidal intention or plan. client shared yesterday that she did have more medication than necessary and at the time was managing her own medication. Client was agreeable to have therapist speak with client's to ensure he starts managing client's medication for now. Client denies access to other lethal items, denies access to firearms. Progress Toward Goals/Plan:: Progress limited second day in program. Client did have difficult conversation in which she opened up to him about her having extra medications that he was unaware of. Client has been receptive to learning different skills and appears open to trying the skills/strategies. client is agreeable to start thinking about what fear ladder she would like to start working on to decrease avoidance of leaving her house. Client to continue IOP to improve daily functioning, increase healthy coping, and prevent decompensation. Time Stopped:: 11:00
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
--- NOTE | 2025-05-21 07:58 | BH.DR.ITP ---
Initial Treatment Plan Patient Information Visit Information: ADMISSION DATE: 05/21/2025 EXPECTED LOS: 4-6 weeks Problems/Symptoms Problem #1:: depression Symptom:: anhedonia, suicidality, lack of motivation, poor sleep Problem #2:: PTSD/Anxiety Symptom:: restlessness, panic attacks, social anxiety
--- NOTE | 2025-05-21 09:40 | BH.NA ---
Physical Data Vital Signs Pulse Rate: 85 Blood Pressure: 133/92 Height/Weight Height: 1.65 m Weight:: 88.451 kg Weight in Pounds: 195.0 lbs Current Medication Compliance Medication Compliance Do you take your medication as prescribed?: Yes Functional Assessment Sleep Pattern Describe any problems with sleeping: Client states she has been sleeping about 6-8 hours per night. Sensory/Communication Assess Communication Problems Do you have difficulty understanding what people are saying?: No Medical Problems/History Cardiac Conditions Cardiovascular: Coronary artery disease, Hypertension and Hyperlipidemia Respiratory Conditions Respiratory: Asthma and Other (See comments) (TONIO- uses bipap) Genitourinary Conditions Genitourinary: Other (See comments) (history of bladder sling) Hematologic Conditions Hematologic: Other (See comments) (history of hodgkins lymphoma- has been in remission since September 2022) Metabolic Conditions Metabolic: Diabetes (type 2, diagnosed about 9 years ago, managed on Ozempic- last A1C was 5.7) and Hypothyroidism (due to thyroidectomy) Gastrointestinal Conditions Gastrointestinal: Other (See comments) (GERD) Musculoskeletal Conditions Musculoskeletal: Other (See comments) (history of carpel tunnel) Cancer History Type of Cancer:: Lymphoma-Hodgkins and Other (See comments) (was diagnosed with stage 0 cervical cancer in 2019 and had a hysterectomy) Family History Family History Other Alcoholism Anxiety Asthma Blood clot in vein Cancer Depression Diabetes Heart disease Hypertension Mental disorder Myocardial infarction Ovarian cancer Psychiatric care Thyroid disorder Additional History Additional comments:: Sjogrens syndrome Surgical History Surgical History Have you had any surgeries? If so, list type and date:: Yes (carpel tunnel, cardiac stents x 2, mirna, thyroidectomy, hyster, bladder) Substance Abuse Substance Abuse Please describe substance abuse in the last 30 days:: Client denies alcohol, tobacco or substance use. Client states she drinks 1 cup of coffee per day. Mental Status Summary Mental Status Significant Findings/Observations on Appearance and Mood:: Client is alert and oriented x 4. Client is casually groomed with good hygiene. Client is cooperative with assessment. Client makes good eye contact. Client's voice has normal rate and volume. Client has a restricted affect. Client makes logical associations and has normal processing. Client denies delusions/hallucinations. Client reports fleeting SI 2-3 times per week, but denies at this time and denies plan/intent. Suicide Assessment Suicidal Ideation Are you currently or have you been suicidal in the past?: Yes Suicidal Intentional Rating Scale (SIRS): Suicidal thoughts (past) (fleeting SI 2-3 times per week, denies plan/intent) Physician Notification Past Psychiatric History MH Treatment Hx Past Psychiatric Medications:: Effexor (increased SI), [place] Horse (was on for several years but got toxicity), Abilify, Latuda, Elavil, Zoloft, Paxil, Lamictal (developed rash), Vraylar, Depakote Age of first mental health symptoms: Client states she was diagnosed with bipolar 2 about 14 years ago, around age 35. Describe (age, circumstance, etc) any past hospitalizations: Last hospitalization in July 2024 at [facility] for SI with plan. 3 previous hospitalizations prior surrounding diagnosis of bipolar (around 2012). Client has a history of suicide attempt in 2011 by overdose. Current providers for mental health treatment (counselor, psychiatrist, telehealth case manager, etc.): Dr. Bolaños at [facility] for therapy, Citlalli Pagan [facility] RECRU[facility] at [facility] for psychiatry, but client is interested in switching to Dr. Lagunas at [facility] Risk Assessment Age Age: Less than 60 Mental Status Mental Status: Willing & able to ask for assistance when needed Physical Status Physical Status: No problems Impairments Impairments: None Elimination Elimination: Continent AND independent Gait or Balance Gait or Balance: Walks independently Hx of Falls History of falls in the past 6 months: No known history Medications/Substances Psychotropics:: Antidepressants, Mood stabilizers and Anxiolytics (e.g. benzodiazepines) Others:: Antihypertensives Medications/substances used within the past 24 hours or ordered to administer: 3 or more of the medications/substances listed above Total Score Total Points:: 2 RN Summary of Impressions Impressions Recommendations Impressions: Psychiatric Issues: bipolar 2 disorder, generalized anxiety disorder Level of Care How do the client's current symptoms and functional deficits support need for this level of care?: Client self referred herself back to [facility] at this time due to depression, anxiety, and more frequent SI. Client was in [facility] in December 2023. Client was hospitalized in July 2024 for SI with plan. Client states she continues to have depression, anxiety and SI about 2-3 times per week. Client states she has a panic attack at least 2 times per week when she thinks about leaving or house or has to leave her house. IOP will promote gains and prevent further decompensation while providing social support and skills training. Nutritional Screen Height/Weight Height: 1.65 m Weight:: 88.451 kg Weight in Pounds: 195.0 lbs Nutrition Screening Normal Weight: 88.451 kg Normal/Usual Weight in Pounds: 195.0 lbs Have you lost weight without trying: No (on Ozempic for the last year, attempting to lose weight) Have you been eating poorly because of a decreased appetite: No Recently been on tube feeds, TPN, or have any nutritional access device in place: No Have any large open wounds or wounds that are not healing: No Calculated Weight Change: 0 Change in weight Score: 0 MST Screening Tool Score: 0
--- NOTE | 2025-05-21 10:10 | BH.SGPN.GN ---
Behaviors/Verbalizations/Mental Status: []Eye contact is good. Motor activity is appropriate. Appearance is casual. Speech is Appropriate. Mood is depressed and anxious. Affect is congruent. Thoughts are linear and logical. No evidence of psychosis. Client Response/Progress/Benefit: []Pt was an active participant in group discussion. Engaged and attentive during psychoeducation and interactive discussion on coping skills, why people use unhealthy coping skills, how to replace unhealthy coping skills, and internal vs external coping skills. Attentive as peers came up with list of unhealthy coping skills. Pt reported personally, they tend to either isolate, cancel plans, or shut down. Group discussed the effects of maladaptive coping skills on mental health. Benefited from increased understanding of unhealthy coping skills and the need for developing healthy internal and external coping skills. Actively participated during experiential group activity and was able to related this activity to group topic. Will continue in IOP to promote healthy thinking patterns, apply healthy coping skills, and promote mood stability. Narrative Note: []
[2025-05-21 10:13] VITALS: BP 133/92; PULSE 85
--- NOTE | 2025-05-21 11:10 | BH.SGPN.GN ---
Behaviors/Verbalizations/Mental Status: [] Pt alert and oriented, casual in appearance. Eye contact fair. Motor activity appropriate. Speech within normal limits. Affect constricted, mood depressed. Thoughts linear, logical, no signs of hallucinations or delusions. Client Response/Progress/Benefit: [] Pt did not engage in group discussions however was attentive AEB taking notes, and listening attentively to others. Group discussed the different categories of coping skills which included distraction, emotional release, grounding, self-love, and thought challenging. Pt participated in creating a coping skills ?menu? from the different categories of coping skills. Pt's coping skill menu included: Belly breathing, journaling, time management, looking for evidence against negative thoughts, and using healthy distractions. Appeared to benefit from increasing repertoire of healthy coping skills. Will continue IOP to improve emotional regulation, improve confidence,, and prevent decompensation.
== END 2025-05-23 23:59 ==
LOC: BHIOP 08:00
PROVIDERS: PCP Nurse Practitioner Family; Referring Provider Student in an Organized Health Care Education/Training Program; Visit Provider Student in an Organized Health Care Education/Training Program
DX: F31.81 Bipolar II disorder (principal); F43.10 Post-traumatic stress disorder, unspecified; F41.1 Generalized anxiety disorder
CPT/HCPCS: S9480; 90832; 90834; 90853

== ENCOUNTER 2025-05-25 07:16 | Outpatient (RCR) | payer BC, SELFPAY ==
--- NOTE | 2025-05-25 09:05 | BH.SGPN.GN ---
Behaviors/Verbalizations/Mental Status: [] Eye contact is good. Motor activity is appropriate. Appearance is casual. Speech is Appropriate. Mood is depressed. Affect is congruent. Thoughts are linear and logical. No evidence of psychosis. Reviewed daily check in sheet and no reports of suicidal ideations or intent. Client Response/Progress/Benefit: [] Pt participated when prompted. Attentive. Daily symptom tracker notes 4/5 for depression and 3/5 for anxiety. She reports low motivation and ?struggling to get out of bed in the morning?. Poor sleep last night and feeling ?tired? today. She was able to utilize opposite-action, thought challenging, and exposure techniques to combat ? irrational fears? associated with driving or being in the car. These fears have increased her isolation and avoidant behaviors therefore she is making an effort to address them. Progress noted. Benefited from group support, encouragement, and feedback. Will continue in IOP to maintain safety, stabilize mood, and improve functioning. Narrative Note: []
--- NOTE | 2025-05-25 09:08 | BH.PSA ---
Development & Family of Origin Family History Family History Other Alcoholism Anxiety Asthma Blood clot in vein Cancer Depression Diabetes Heart disease Hypertension Mental disorder Myocardial infarction Ovarian cancer Psychiatric care Thyroid disorder
--- NOTE | 2025-05-25 10:10 | BH.SGPN.GN ---
Behaviors/Verbalizations/Mental Status: [] Eye contact is fair. Motor activity is appropriate. Appearance is casual. Speech is Appropriate. Mood is dysthymic. Affect is flat. Thoughts are linear and logical. No evidence of psychosis. Client Response/Progress/Benefit: [] Pt was an active participant during interactive group discussions. Attentive during psychoeducation on the six types of boundaries (physical, emotional, intellectual, sexual, time, and material) AEB note-taking and providing input. Along with peers contributed to interactive discussion on defining what a boundary is in mental health. Pt along with peers identified challenges to setting boundaries such as guilt, feeling selfish, negative past experiences, fear of conflict, and limited knowledge on setting boundaries. Pt along with peers identified the benefits to setting boundaries such as better relationships, increased time for self-care, and increased confidence, and feeling more heard. Group discussed the mental health benefits to establishing boundaries at work, school, and home. Pt benefited from increased awareness and insight on the importance/benefit to setting health boundaries. Will continue in IOP to decrease anxious avoidance, improve healthy coping skills, and prevent decompensation.
--- NOTE | 2025-05-25 11:10 | BH.SGPN.GN ---
Behaviors/Verbalizations/Mental Status: []Pt alert and oriented, casually dressed and groomed. Eye contact good. Motor activity appropriate. Speech within normal limits. Affect congruent, mood depressed and anxious. Thoughts linear, logical, no signs of hallucinations or delusions. Client Response/Progress/Benefit: [] Client responded well to session AEB listening attentively to peers, providing input, as well as taking notes throughout. Group discussed different styles of boundary setting. Participated in small group discussion brainstorming various strategies for improving healthy boundary setting. Pt took time to complete reflection on which skills would like to implement to improve boundaries. Plans to challenge self by using opposite action when tempted to go back on a boundary. Seemed to benefit from increased awareness of how different boundary styles can impact mental health. Will continue IOP tx prevent decompensation, increase use of healthy coping skills, and reduce negative thinking patterns. Narrative Note: []
--- NOTE | 2025-05-25 14:06 | BH.MTP ---
Master Treatment Plan Patient Information Program Physician:: Dr. Lagunas Primary Therapist:: Nesha Pal [facility] Psychiatric Diagnoses Psychiatric Diagnoses:: Bipolar 2 disorder, major depressive episode Diagnosis Code(s):: F31.81 Estimated LOS Estimated LOS (in weeks):: 6 Problem/Goal #1 Problem/Goal #1 Stated Goal:: Client will decrease depression, low motivation, and passive thoughts of . Description of Barriers: Potential barriers: cognitive distortions, anxious thoughts, difficulty leaving the house, negative self-talk, and hx of medication sensitivity. Functional Impact: Mahi Tan is a 49 year old female who presents today for new patient evaluation. Was hospitalized at [facility] in July for suicidal ideation. Was having worsening depression. Had been missing work and was experiencing worsening depression. Has been following with Citlalli Pagan at [facility]. 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 Rates current depression 8/10 with 0 being none and 10 being the worst. Has been like this the last 6 weeks. Outside of just work stress this lead to significant financial stress as well. Since starting wellbutrin did notice a little bit of an increase in depression and energy. has been managing medications. Objectives Objective #1: Stated Objective: Client will learn and utilize 2-3 healthy coping strategies to manage depressive symptoms. Interventions: Therapist will utilize CBT techniques to assist client with understanding the connection between thoughts, feelings and behaviors. Education will be provided on behavioral activation. Therapist will assist client in learning internal coping strategies to manage depressive symptoms, along with helping client identify triggers. Discharge Criteria: Client will have achieved this goal when can verbalize and has practiced at least 2 healthy coping strategies that successfully manage depressive symptoms. Target Date: 06/29/25 Review Date: 06/15/25 Objective #2: Stated Objective: Client will identify and replace 2-3 negative thinking patterns that reinforce depressive symptoms. Interventions: Therapist will assist client in developing an awareness of the cognitive messages that reinforce depressive thinking. Therapist will also assist client in challenging negative thinking patterns. Discharge Criteria: Client will have achieved this goal when can identify at least 2 negative thinking patterns, replace negative thinking with more positive, affirmative messages and state no longer having thoughts of hurting self. Target Date: 06/29/25 Review Date: 06/15/25 Problem/Goal #2 Problem/Goal #2 Stated Goal:: Stabilize anxiety level while increasing ability to function on daily basis. Description of Barriers: Potential barriers: cognitive distortions, anxious thoughts, difficulty leaving the house, negative self-talk, and hx of medication sensitivity. Functional Impact: Mahi Tan is a 49 year old female who presents today for new patient evaluation. Was hospitalized at [facility] in July for suicidal ideation. Was having worsening depression. Had been missing work and was experiencing worsening depression. Has been following with Citlalli Pagan at [facility]. 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 Rates current depression 8/10 with 0 being none and 10 being the worst. Has been like this the last 6 weeks. Outside of just work stress this lead to significant financial stress as well. Since starting wellbutrin did notice a little bit of an increase in depression and energy. has been managing medications. Objectives Objective #1: Stated Objective: Client will learn and implement 2-3 calming skills to reduce overall anxiety and manage anxiety symptoms. Interventions: Therapist and group sessions will help client identify physiological warning signs of anxiety, increase awareness of thoughts that increase anxiety, and identify behaviors that reinforce anxious symptoms. Group and individual counseling will teach client calming skills to help manage anxious symptoms. Discharge Criteria: Client will have achieved this goal when can verbalize at least 2 calming skills and reports skills successfully help reduce anxious symptoms. Target Date: 06/29/25 Review Date: 06/15/25 Objective #2: Stated Objective: Client will identify 2-3 anxiety triggers and 2 coping skills to use when feeling anxious. Interventions: Therapist will assist client in exploring what triggers anxiety and teach client coping strategies to effectively manage anxiety symptoms. Discharge Criteria: Client will have met this goal when can identify at least 2 triggers to anxiety and verbalize two healthy ways to cope with feelings of anxiety. Target Date: 06/29/25 Review Date: 06/15/25
--- NOTE | 2025-05-26 10:10 | BH.SGPN.GN ---
Behaviors/Verbalizations/Mental Status: [] Client alert and oriented, casually dressed and groomed. Eye contact good. Motor activity appropriate. Speech within normal limits. Affect congruent, mood depressed and anxious. Thoughts linear, logical, no signs of hallucinations or delusions. Client Response/Progress/Benefit: [] Client responded well to session AEB contributing to discussion, taking notes, and listening attentively to others. Group discussed the benefits of managed anger and anger as a secondary emotion. Client participated in anger iceberg discussion. Group reported outward personal signs of anger as lashing out verbally, physical fights, destruction of property, self-harm, and self-sabotage. Group Identified underlying emotions that contribute to anger including being dismissed, rejection, assumptions, being lied too, and micromanaging. Appeared to benefit from increased knowledge of the underlying emotions that impact anger and increased self-awareness of the internal and external consequences of anger. Client will continue IOP program to stabilize mood, reduce avoidance, and prevent decompensation. Narrative Note: []
--- NOTE | 2025-05-26 11:10 | BH.SGPN.GN ---
Behaviors/Verbalizations/Mental Status: [] client alert and oriented, casually dressed and groomed. Eye contact good. Motor activity appropriate. Speech within normal limits. Affect constricted, mood dysthymic. Thoughts linear, logical, no signs of hallucinations or delusions. Client Response/Progress/Benefit: [] Client was an engaged participant throughout group AEB client providing input throughout discussion. Client contributed to the continued discussion of how people express anger as well as the underlying emotions of anger. Client participated in group activity that highlighted strategies to cope with anger. Group brainstormed healthy coping skills to help prevent anger and cope with it in the moment which included: mindfulness, deep breathing, journaling, going outside, and music. Client stated would like to work on walking away when angry but coming back to resolve the issue. Client appeared to benefit from brainstorming with the group potential strategies to manage anger in healthy ways. Recommended continued IOP to decrease anxious avoidance, improve view of self, and prevent decompensation.
--- NOTE | 2025-05-26 15:32 | BH.MDN ---
Multi-Disciplinary Note Note 45-min Individual: Time Started:: 09:05 Date: 05/26/25 Purpose of session/treatment goals addressed:: Purpose of session was to address goals 1 and 2 from MTP. Eye Contact:: Good Motor Activity:: Appropriate Appearance:: Casual Speech:: Appropriate Mood:: Depressed Affect:: Constricted Thoughts:: Linear, Logical and No evidence of hallucinations/delusions noted Staff Interventions:: thought challenging, CBT techniques, strengths perspective, goal setting and taught coping skills (wrote 2 fear ladders) Client Response:: Client reported she has been doing slightly better over the last week since she started using opposite action to engage in different activities instead of sitting on her couch doom scrolling for hours. Client stated she has been following through with the technique of reading her depression prior to doing an activity and then rating her depression after doing the activity. Client noted she has been observed her depression score is going down after she chooses to use opposite action and do something different. Client shared for example she took a break from using her phone by reading on 2 different occasions, spending time with her daughter outside the home, and on 2 separate occasions worked on [employer] projects. Client stated this morning she also utilized opposite action by waking up when her first alarm went off instead of snoozing for the next 45 minutes. Client stated being out of bed earlier she was able to spend time journaling before she came to IOP. Client and therapist worked together to create 2 fear ladders. The first fear ladder was focused on client being able to drive on her own without anxiety holding her back. The second fear ladder was focused on client being able to drive in a parking lot without fear causing her to avoid leaving the house or needing to use distractions to be in the car. Client and therapist work together to create about 7 steps for each fear ladder. Therapist encouraged client to start at the first step on each ladder and to complete that step numerous times until her anxiety level reduces and that tasks no longer feels as anxiety provoking. Client expressed understanding of the purpose of the fear ladder and is agreeable to start practicing these tasks. 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 Risks/Concerns:: Client reports chronic suicidal thoughts. Client currently denies suicidal intention or plan. No access to firearms or medications. Client's is currently managing her medications. Client stated she feels able to maintain safety. Progress Toward Goals/Plan:: Progress noted with client reporting utilization of coping skills and strategies discussed in first individual session with reports of decreased depression. Client also started to utilize anxiety exposure goals over the last week and was able to see she is capable of driving or being a passenger without anything bad happening. Client continues to report depression, ocassional suicidal thoughts (no intention/plan), and anxiety. Client is to continue IOP to promote healthy coping skills, challenge negative/distorted thoughts, and prevent decompensation. Time Stopped:: 09:55
--- NOTE | 2025-05-28 09:05 | BH.SGPN.GN ---
Behaviors/Verbalizations/Mental Status: [] Eye contact is good. Motor activity is appropriate. Appearance is casual. Speech is Appropriate. Mood is dysthymic. Affect is congruent. Thoughts are linear and logical. No evidence of psychosis. Reviewed daily check in sheet and no reports of suicidal ideations or intent. Client Response/Progress/Benefit: [] Pt was an active participant in group discussions. Attentive. Daily symptom tracker notes 10/28 for depression. Able to identify mental health wins and healthy habits. Has been maintaining a routine which has been beneficial to her mental health. She elaborated on her routine. Feels ? more productive?. Engaged and completing tasks rather than isolating and sleeping. Primary skills utilizes are reframing and opposite action. Progress noted. Benefited from group support, encouragement, and feedback. Will continue in IOP to prevent decompensation, increase healthy coping, and improve functioning Narrative Note: []
--- NOTE | 2025-05-28 10:10 | BH.SGPN.GN ---
Behaviors/Verbalizations/Mental Status: [] Eye contact is good. Motor activity is appropriate. Appearance is casual. Speech is Appropriate. Mood is content. Affect is congruent. Thoughts are linear and logical. No evidence of psychosis Client Response/Progress/Benefit: [] Pt receptive of session, actively engaged throughout AEB taking notes, providing input, and contributing in small group discussion. Appeared to connect with group topic of automatic thoughts and cognitive distortions, as well as the impact of thought patterns on mental health, coping behaviors, and relationships. This particular group is very heavy on psychoeducation and pt appeared to connect with distortions and how they can impact functioning. Identified struggling with all or nothing thinking and emotional reasoning distortions. Pt appeared to benefit from gaining insight on distorted thinking patterns and how this impacts overall mental health. Will continue IOP to stabilize mood, improve ability to function, and prevent decompensation. Narrative Note: []
--- NOTE | 2025-05-28 11:10 | BH.SGPN.GN ---
Behaviors/Verbalizations/Mental Status: [] Eye contact is good. Motor activity is appropriate. Appearance is casual. Speech is Appropriate. Mood is euthymic. Affect is congruent. Thoughts are linear and logical. No evidence of psychosis. Client Response/Progress/Benefit: [] Pt was an active participant and responded well to session AEB input and examples during group activity. Group discussed and practiced methods of reframing cognitive distortions. Client participated in identifying cognitive distortions when examples were provided. Client discussed in group the different strategies to overcome the distortions. Client identified cognitive distortion they used most often and made plan to identify and challenge thoughts that contribute to it as homework over the next couple of days. Will continue tx to further promote mood stability, improve distress tolerance skill application, maintain safety, and prevent decompensation. Narrative Note: []
--- NOTE | 2025-06-01 09:00 | BH.SGPN.GN ---
Behaviors/Verbalizations/Mental Status: [] Pt alert and oriented, neatly dressed and groomed. Eye contact good. Motor activity appropriate. Speech within normal limits. Affect constricted, mood anxious. Thoughts linear, logical, no signs of hallucinations or delusions. Reviewed pt?s symptom tracker, no risk for suicidal ideation, plan, or intent 06/02/25. Client Response/Progress/Benefit: []Pt was an active participant in group discussions. Attentive. Able to identify mental health wins including ?I?ve been journaling my wins and this has been helpful and I?m working on my fear ladder with driving.? 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 The group offered pt suggests managing this stressor and emotional support which pt reported was helpful. Pt is feeling ?anxious? this morning. Pt receptive to feedback from peers. Benefited from group support, encouragement, and feedback. Progress noted. Will continue IOP tx to reduce avoidance due to anxiety, improve daily functioning, and increase self-confidence. Narrative Note: []
--- NOTE | 2025-06-01 10:15 | BH.SGPN.GN ---
Behaviors/Verbalizations/Mental Status: [] Eye contact is good. Motor activity is appropriate. Appearance is casual. Speech is Appropriate. Mood is anxious and depressed. Affect is flat. Thoughts are linear and logical. No evidence of psychosis. Client Response/Progress/Benefit: [] Pt engaged in session AEB client listening attentively to peers and providing input. Attentive however minimal discussion as group worked on defining?self-confidence?and identifying benefits of?self-confidence which included; increase jenny/engagement, improved quality of relationships, improved problem solving, confidence to take risks, and increased sense of self-worth. Attentive during interactive discussion on factors that impact one's self confidence such as trauma, upbringing, economic status, and current/past relationships. Benefited from increased education on?self-confidence?and what effects it. Pt will continue IOP to prevent decompensation/re-admission to psych, increase healthy coping, and improve functioning. Narrative Note: []
--- NOTE | 2025-06-01 11:10 | BH.SGPN.GN ---
Behaviors/Verbalizations/Mental Status: [] Client alert and oriented, casually dressed and groomed. Eye contact good. Motor activity appropriate. Speech within normal limits. Affect congruent, mood anxious. Thoughts linear, logical, no signs of hallucinations or delusions. Client Response/Progress/Benefit: [] Pt engaged in session AEB client listening attentively to peers and providing input. Attentive and contributed to discussion as group worked on identifying thought patterns and behaviors that negatively affect self-confidence. Pt identified behaviors that affect their confidence as: comparing and isolating and negative self-talk. Engaged in confidence building activity and worked with the group to identify strategies for improving self-confidence. Pt identified plans to continue working on exposure goals as a means of improving own self-confidence. Benefited from increased education on self-confidence building skills. Pt will continue IOP tx to increase self-confidence, improve emotional regulation skills, and prevent decompensation. Narrative Note: []
--- NOTE | 2025-06-02 09:00 | BH.SGPN.GN ---
Behaviors/Verbalizations/Mental Status: [] Eye contact is good. Motor activity is appropriate. Appearance is casual. Speech is Appropriate. Mood is content. Affect is congruent. Thoughts are linear and logical. No evidence of psychosis. Reviewed daily check in sheet and pt reports 2/5 for suicidal thoughts and 0/5 for intent. Client Response/Progress/Benefit: [] Pt participated when prompted. Attentive. Daily symptom tracker notes 3/5 for anxiety, 0/5 for irritability and 2/5 for depression. Emotion for today is determined. Mental health wins reported to be sitting with the uncomfortable and challenging herself to complete a goal on her fear ladder. Additional win noted as getting out of the house and spending time with her daughter and grand-daughter. 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 Progress noted per pt report. Benefited from group support, encouragement, and feedback. Will continue in IOP to prevent decompensation, improve mood stability, and increase healthy coping. Narrative Note: []
--- NOTE | 2025-06-02 10:10 | BH.SGPN.GN ---
Behaviors/Verbalizations/Mental Status: []Pt alert and oriented, casually dressed and groomed. Eye contact fair. Motor activity appropriate. Speech within normal limits. Affect congruent, mood anxious. Thoughts linear, logical, no signs of hallucinations or delusions. Client Response/Progress/Benefit: []Pt was an active participant in group discussion and activity. Attentive during psychoeducation. Along with peers, pt was able to identify barriers to taking action in their life. Identified several symptoms and stressors that pt feels are holding them back from progress. Pt stated anxiety, isolation, and avoidance keep her from having more connections in the world. Pt able to identify how these things have negatively impacted progress. Benefited from increased self-awareness of obstacles. Pt will continue IOP to improve distress tolerance, decrease anxious avoidance, and prevent decompensation.
--- NOTE | 2025-06-02 10:35 | BH.MDN ---
Multi-Disciplinary Note Note 30-min Individual: Time Started:: 09:00 Date: 06/02/25 Purpose of session/treatment goals addressed:: Purpose of session was to address goals 1 and 2 from MTP. Eye Contact:: Good Motor Activity:: Appropriate Appearance:: Casual Speech:: Appropriate Mood:: Euthymic Affect:: Congruent Thoughts:: Linear, Logical and No evidence of hallucinations/delusions noted Staff Interventions:: thought challenging, CBT techniques, strengths perspective and goal setting Time Stopped:: 09:30
--- NOTE | 2025-06-02 11:10 | BH.SGPN.GN ---
Behaviors/Verbalizations/Mental Status: []Pt alert and oriented, neatly dressed and groomed. Eye contact good. Motor activity appropriate. Speech within normal limits. Affect constricted, mood anxious. Thoughts linear, logical, no signs of hallucinations or delusions. Client Response/Progress/Benefit: []Pt responded well to session, taking notes and participating in worksheet discussion. Pt connected with the discussion on action steps, and this helped pt learn how to set goals differently. Pt set a SMART goal that she will ?drive to 3 places weekly that I have on my fear ladder.? Pt shared they can use calming skills and review their binder for extra support. Appeared to benefit from identifying a small goal to benefit mental health. Pt is to continue IOP tx to prevent decompensation, reduce avoidance, and improve daily functioning. Narrative Note: []
--- NOTE | 2025-06-04 09:05 | BH.SGPN.GN ---
Behaviors/Verbalizations/Mental Status: [] Eye contact is good. Motor activity is appropriate. Appearance is casual. Speech is Appropriate. Mood is dysthymic. Affect is congruent. Thoughts are linear and logical. No evidence of psychosis. Reviewed daily check in sheet and pt reports 2/5 for suicidal ideations and 0/5 for intent. This is below baseline. Client Response/Progress/Benefit: [] Pt participated when prompted. Attentive. Daily symptom tracker notes 2/5 for depression and 3/5 for anxiety. I got out of the house for 6 hours. Shared why this was a mental health win stating that she hasn't been away from the house for that amount of time since February. She is making a conscious effort to push herself and utilize skills which has shown to be effective. Primary stressor is related to poor sleep and feeling tired. Progress noted. Benefited from group support, encouragement, and feedback. Will continue in IOP to maintain safety, prevent decompensation/re-admission to psych unit, and improve functioning. Narrative Note: []
--- NOTE | 2025-06-04 10:15 | BH.SGPN.GN ---
Behaviors/Verbalizations/Mental Status: []Pt alert and oriented, neatly dressed and groomed. Eye contact good. Motor activity appropriate. Speech within normal limits. Affect constricted, mood anxious. Thoughts linear, logical, no signs of hallucinations or delusions. Client Response/Progress/Benefit: [] Pt was attentive during psychoeducation and participated in group activity. Group discussed what influences a person?s perspective and how perspective can positively or negatively impact mental health treatment. Group identified several factors that can influence perspective which include; mood, current stressors, sleep, health, hunger, and several others.?Pt appeared to benefit from increasing awareness of different perspectives and how they can affect mental health. Pt noted that their perspective today is ?both positive and negative. I?m less withdrawn, but not fully engaged and I?m starting to use my skills, but not always.? Pt will continue IOP tx to prevent decompensation, improve daily functioning, and combat distortions. Narrative Note: []
--- NOTE | 2025-06-04 11:10 | BH.SGPN.GN ---
Behaviors/Verbalizations/Mental Status: []Pt alert and oriented, casually dressed and groomed. Eye contact good. Motor activity appropriate. Speech within normal limits. Affect constricted, mood anxious. Thoughts linear, logical, no signs of hallucinations or delusions. Client Response/Progress/Benefit: [] Pt was attentive and contributed to group discussion. Pt worked with group to identify strategies that can help with challenging negative perspective. Pt stated she wants to practice being aware of current needs, setting realistic expectations, and trying to look for the good as strategies that can help challenge negative perspective. Benefited from identifying strategies that can help with improving perspective and identifying one strategy to focus on to improve current perspective. Pt will continue IOP tx to improve view of self, challenge distorted thoughts, and prevent decompensation.
--- NOTE | 2025-06-08 09:05 | BH.SGPN.GN ---
Behaviors/Verbalizations/Mental Status: [] Pt alert and oriented, neatly dressed and groomed. Eye contact good. Motor activity appropriate. Speech within normal limits. Affect flat, mood anxious. Thoughts linear, logical, no signs of hallucinations or delusions. Reviewed pt?s symptom tracker, no risk for suicidal ideation, plan, or intent 06/08/25. Client Response/Progress/Benefit: []Pt was an active participant in group discussions. Attentive. Able to identify mental health wins including seeing progress with driving and having less anxiety because pt is working on her fear ladder. Pt also noted that she was able to ?bounce back much quicker? after having a mentally exhausting day last week. Pt's stressor today is ?we are going on vacation in two weeks and that?s a long time in the car.? The group offered pt suggests managing this stressor and emotional support which pt reported was helpful. Pt is feeling ?a little anxious.? this morning. Pt receptive to feedback from peers. Benefited from group support, encouragement, and feedback. Progress noted. Will continue IOP tx to promote mood stability, reduce negative thinking patterns, and gain self-confidence. Narrative Note: []
--- NOTE | 2025-06-08 10:10 | BH.SGPN.GN ---
Behaviors/Verbalizations/Mental Status: []Eye contact is fair. Motor activity is appropriate. Appearance is casual. Speech is Appropriate. Mood is content. Affect is constricted. Thoughts are linear and logical. No evidence of psychosis. Client Response/Progress/Benefit: []Pt was an active participant in group discussions. Attentive during psychoeducation on the 4 communication styles (Passive, Passive-Aggressive, Aggressive, and Assertive) and the obstacles to effective communication. Contributed during interactive discussion on the benefits of communicating effectively. Worked well with peers to identify the benefits and disadvantages to the different communication styles. Pt believes that they are primarily passive. Benefited from increased understanding of communication styles and how these can impact effective communication. Will continue in IOP to improve mood stability, challenge negative thoughts, and prevent decompensation. Narrative Note: []
--- NOTE | 2025-06-08 11:10 | BH.SGPN.GN ---
Behaviors/Verbalizations/Mental Status: []Pt alert and oriented, casually dressed and groomed. Eye contact fair. Motor activity restless. Speech within normal limits. Affect constricted, mood anxious. Thoughts linear, logical, no signs of hallucinations or delusions. Client Response/Progress/Benefit: [] Pt responded well to session AEB pt listening attentively to others and providing input during group discussion on the pay offs and costs of the different communication styles. Pt able to connect how current communication style impacts mental health. Connected with peers? comments about the importance of using assertive communication. Pt seemed to benefit from increasing awareness of healthy strategies to improve communication and worked with peers during the experiential activity to practice assertive communication. Pt engaged in self-reflection activity in which they identified what they want to work on to improve communication. Will continue IOP tx to improve confidence, decrease anxious avoidance, and prevent decompensation.
--- NOTE | 2025-06-09 09:00 | BH.SGPN.GN ---
Behaviors/Verbalizations/Mental Status: [] Client alert and oriented, casual appearance. Eye contact fair. Motor activity appropriate. Speech within normal limits. Affect constricted, mood tired. Thoughts linear, logical, no signs of hallucinations or delusions. Reviewed client's symptom tracker, no risk for suicidal ideation, plan, or intent. Client Response/Progress/Benefit: [] Client responded well to session AEB listening to others and sharing thoughts/feelings. Client reported mental positive as spending less time on her phone which is helping her enjoy more things. Client stated additional mental health positive as walking on her treadmill more consistently which she noted has been helpful to her mood. Client noted current stressor is sleep quality is inconsistent. Appeared to benefit from support from peers. Will continue IOP tx to challenge negative thoughts, promote healthy coping skills, and prevent decompensation.
--- NOTE | 2025-06-09 10:10 | BH.SGPN.GN ---
Behaviors/Verbalizations/Mental Status: []Pt alert and oriented, neatly dressed and groomed. Eye contact fair. Motor activity appropriate. Speech within normal limits. Affect congruent, mood anxious. Thoughts linear, logical, no signs of hallucinations or delusions Client Response/Progress/Benefit: [] Pt took notes and contributed to group discussions. Attentive during psychoeducation on growth mindset. Interactive group discussion on fixed mindset in which group verbalized their current fixed mindsets and how they affect their mental health. Pt shared common fixed mindset thoughts they have. Pt shared a personal fixed thought I?m always going to struggle with my mental health.? Pt able to connect negative impact fixed thoughts have on functioning. Pt benefited from increased awareness of growth mindset and fixed thoughts and how fixed thoughts impact their mental health. Will continue IOP tx to prevent decompensation, reduce avoidance due to anxiety, and improve self-confidence. ?? Narrative Note: []
--- NOTE | 2025-06-09 13:42 | BH.MDN ---
Multi-Disciplinary Note Note 45-min Individual: Time Started:: 11:10 Date: 06/09/25 Time Stopped:: 11:55
--- NOTE | 2025-06-11 09:00 | BH.SGPN.GN ---
Behaviors/Verbalizations/Mental Status: [] Eye contact is good. Motor activity is appropriate. Appearance is casual. Speech is Appropriate. Mood is euthymic. Affect is full. Thoughts are linear and logical. No evidence of psychosis. Reviewed daily check in sheet and pt denies SI, plan, or intent as of this date 06/11/25. Client Response/Progress/Benefit: [] Pt was an active participant in group discussions. Attentive. Did well to identify 2 mental health wins, which included doing well to use coping skills to successfully accomplish several of her exposure goals. Reports doing well to give themselves credit for this as well. Additional win noted as making progress with walking on the treadmill more consistently. Stressor noted as an upcoming long drive to [place] for vacation. Appeared to benefit from provided support, encouragement, and feedback. Will continue IOP tx to improve mood stability, develop healthy coping repertoire, and prevent decompensation. Narrative Note: []
--- NOTE | 2025-06-11 10:10 | BH.SGPN.GN ---
Behaviors/Verbalizations/Mental Status: [] Pt alert and oriented, casually dressed and groomed. Eye contact good. Motor activity appropriate. Speech within normal limits. Mood: depressed. Affect: congruent. Thoughts linear, logical, no signs of hallucinations or delusions. Client Response/Progress/Benefit: [] Pt participated when prompted during group discussions. Attentive during psychoeducation on self-sabotage and its impact on mental health. Attentive as peers worked to define self-sabotage and identify reasons individuals perform self-sabotage behaviors (easy route at the time, feel as those we don't deserve any better, FOF, comfortable, etc). Attentive as peers identified the forms of self-sabotage that impact their mental health. Attentive during psychoeducation on types of self-sabotage; Procrastination, perfectionism, self-medication, poor communication,and chronic cancelling. Seemed to benefit from gaining awareness about the self-sabotage. Pt to continue IOP tx to prevent decompensation/re-admission to psych unit, maintain safety, increase healthy coping, and improve functioning to return to work. Narrative Note: []
--- NOTE | 2025-06-11 11:10 | BH.SGPN.GN ---
Behaviors/Verbalizations/Mental Status: []Pt alert and oriented, casually dressed and groomed. Eye contact good. Motor activity appropriate. Speech within normal limits. Affect congruent, mood content. Thoughts linear, logical, no signs of hallucinations or delusions. Client Response/Progress/Benefit: []Pt responded well to session, engaged and contributing. Pt discussed with group things that contribute to mental wellness life. With peers, pt discussed things that would sabotage one's mental health wellness. Pt identified things pt personally does to sabotage as isolation, people pleasing, and chronic canceling. Pt attentive during psychoeducation on ways to reduce self-sabotage and pt selected delay, distract, decide?as the skill that could help pt reduce self-sabotaging behaviors. Pt appeared to benefit from learning skills and gaining awareness of self-sabotaging behaviors. Pt will continue IOP tx to promote mood stability, increase distress tolerance skills, and improve self-confidence to reduce anxiety. Narrative Note: []
--- NOTE | 2025-06-14 09:00 | BH.SGPN.GN ---
Behaviors/Verbalizations/Mental Status: [] Pt alert and oriented, casually dressed and groomed. Eye contact fair. Motor activity appropriate. Speech within normal limits. Affect congruent, mood anxious. Thoughts linear, logical, no signs of hallucinations or delusions. Reviewed pt?s symptom tracker, no risk for suicidal ideation, plan, or intent. Client Response/Progress/Benefit: []Pt was an active participant in group discussions. Attentive. Able to identify mental health wins as made two self-care appointments for herself that she had been pushing off. Additional positive as did deep cleaning of her house this weekend instead of staying on her phone. Pt's stressor today is anxiety about her upcoming drive of 7 hours, which will be the furthest she's gone in awhile. Worried her anxiety is going to make the trip less enjoyable. The group offered pt encouragement and emotional support which pt reported was helpful. Pt is feeling anxious? this morning. Pt receptive to feedback from peers. Progress noted. Benefited from group support, encouragement, and feedback. Will continue IOP tx to decrease anxious avoidance, promote healthy coping, and prevent decompensation.
--- NOTE | 2025-06-14 10:15 | BH.SGPN.GN ---
Behaviors/Verbalizations/Mental Status: []Pt alert and oriented, casually dressed and groomed. Eye contact good. Motor activity appropriate. Speech within normal limits. Affect flat, mood anxious. Thoughts linear, logical, no signs of hallucinations or delusions. Client Response/Progress/Benefit: [] Pt participated during small group discussions. Attentive during psychoeducation about defense mechanisms. Showed engagement during small group discussions and helped group identify which defense mechanisms were maladaptive, adaptive, or ?somewhere in the ro.? Pt worked with small group on identifying how each defense mechanism can impact mental health and gave examples. Group was mostly educational and pts discussed the different types of defense mechanisms. Pt reported benefits from identifying examples of different defense mechanisms and normalizing why they are used. Seemed to benefit from gaining awareness about the different defense mechanisms. Pt to continue IOP tx to further progress in pt?s fear ladder, reduce avoidance, and improve daily functioning. ? Narrative Note: []
--- NOTE | 2025-06-14 11:15 | BH.SGPN.GN ---
Behaviors/Verbalizations/Mental Status: []Pt alert and oriented, casually dressed and groomed. Eye contact good. Motor activity appropriate. Speech within normal limits. Affect congruent, mood content. Thoughts linear, logical, no signs of hallucinations or delusions. Client Response/Progress/Benefit: [] Pt responded well to session, participating in activity and small group discussion. Group reviewed the rest of the defense mechanisms and discussed how these are adaptive, maladaptive, or somewhere in the ro. Pt's defense mechanisms included anticipation and suppression. Shared that these reinforce unhealthy coping mechanisms. Pt listened to air drill operator teach different skills to help pt?s cope with or change their defense mechanisms. Pt appeared to benefit from gaining insight to the different defense mechanisms and learning coping skills. Shared wanting to begin practicing more awareness of when using these defense mechanisms. Pt will continue IOP tx to prevent decompensation, improve distress tolerance skills, and increase emotion regulation. Narrative Note: []
--- NOTE | 2025-06-16 10:10 | BH.SGPN.GN ---
Behaviors/Verbalizations/Mental Status: [] Client alert and oriented, casually dressed and groomed. Eye contact good. Motor activity appropriate. Speech within normal limits. Affect congruent, mood euthymic and anxious. Thoughts linear, logical, no signs of hallucinations or delusions. Client Response/Progress/Benefit: [] Client responded well to session AEB taking notes throughout and listening attentively to others. Client was attentive throughout group activity identifying famous individuals and how they overcame failure to be successful. Client helped group identify how fear of failure can impact mental health and relationships.Client participated in experiential activity, working with group members to problem solve. Appeared to benefit from increased knowledge of fear of failure. Will continue IOP tx to increase overall functioning and prevent decompensation. Narrative Note: []
--- NOTE | 2025-06-16 11:10 | BH.SGPN.GN ---
Behaviors/Verbalizations/Mental Status: [] Client alert and oriented, casually dressed and groomed. Eye contact good. Motor activity appropriate. Speech within normal limits. Affect constricted, mood euthymic. Thoughts linear, logical, no signs of hallucinations or delusions. Client Response/Progress/Benefit: [] Client responded well to session, engaged in the experiential activity and attentive throughout group processing. Client reported fear of failure has kept client from peace and happiness. Client completed fear of failure worksheet and was able to identify thoughts and behaviors that reinforce personal fear of failure including comparing self to others. Client participated in small group discussion regarding strategies to overcome fear of failure. Identified wanting to work on consistency with showing up. Appeared to benefit from increased knowledge of strategies to combat fear of failure and gaining self-awareness. Client will continue IOP tx to increase self worth and positive thought patterns. Narrative Note: []
== END 2025-06-22 23:59 ==
LOC: BHIOP 07:16
PROVIDERS: PCP Nurse Practitioner Family; Referring Provider Student in an Organized Health Care Education/Training Program; Visit Provider Student in an Organized Health Care Education/Training Program
DX: F31.81 Bipolar II disorder (principal)
CPT/HCPCS: S9480; 90832; 90834; 90853

== ENCOUNTER 2025-06-23 08:04 | Outpatient (RCR) | payer BC, SELFPAY ==
--- NOTE | 2025-06-29 10:00 | BH.SGPN.GN ---
Behaviors/Verbalizations/Mental Status: []Eye contact is good. Motor activity is appropriate. Appearance is neat. Speech is Appropriate. Mood is anxious. Affect is congruent. Thoughts are linear and logical. No evidence of psychosis. Client Response/Progress/Benefit: [] Pt was an active participant in group discussions. Attentive during psychoeducation. Contributed during interactive discussions in which peers attempted to define crisis. Group identified crisis examples. Group also worked together to identify warning signs and unhealthy responses to crisis which included shutting down, isolation, avoidance, over-thinking, disordered eating, and self-harm. Pt identified top 3 warning signs as: isolation, increase in negative thinking, and shutting down. Benefited from increased understanding of crisis and awareness of personal responses to crisis. Pt will continue IOP tx to promote mood stability, combat distorted thoughts, and improve daily functioning. Narrative Note: []
--- NOTE | 2025-06-29 11:00 | BH.SGPN.GN ---
Behaviors/Verbalizations/Mental Status: []Pt alert and oriented, appropriate grooming/appearance. Eye contact fair. Motor activity appropriate. Speech within normal limits. Affect constricted, mood euthymic. Thoughts linear, logical, no signs of hallucinations or delusions. Client Response/Progress/Benefit: []Pt was an active participant in group discussions. Attentive during psychoeducation. In small group pt along with peers developed an active plan for their crisis warning signs. Pt identified three crisis warning signs as well as an action plan for each. One crisis warning sign was increase in negative thoughts. Pt identified strategies to help with this such as: journaling, doing something she enjoys, affirmations, and looking at the facts. Benefited from increased awareness of crisis warning signs and by developing crisis intervention strategies. Will continue in IOP to promote use of healthy coing skills, challenge distortions, and prevent decompensation.
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
--- NOTE | 2025-06-30 09:00 | BH.SGPN.GN ---
Behaviors/Verbalizations/Mental Status: [] Pt alert and oriented, Neatly dressed and groomed. Eye contact fair. Motor activity appropriate. Speech within normal limits. Affect congruent, mood anxious. Thoughts linear, logical, no signs of hallucinations or delusions. Reviewed pt?s symptom tracker, 2/5 with 5 being severe for risk for suicidal ideation, indicates a 0/5 for plan, and intent to kill self. Pt does not appear to be imminent risk to harm self.06/30/25. Client Response/Progress/Benefit: []Pt was an active participant in group discussions. Attentive. Per patients daily symptom tracker, pt indicates a 3/5 for depression and a 4/5 for anxiety, with 5 being severe. Pt reported that was able to use self-compassion on a long car ride, during which she was very anxious and had a panic attack. She reports feeling frustrated initially, but was able to give herself david and appreciate the progress that she has made. She also reports that her sleep has improved. Pt's stressor was overall frustration with her anxiety and the effect it has on her life. Pt was supportive and attentive to others in the group. Pt seemed to benefit from support from peers. Will continue IOP tx to promote healthy coping mechanisms, reduce negative thinking patterns, and prevent decompensation.
--- NOTE | 2025-06-30 10:15 | BH.SGPN.GN ---
Behaviors/Verbalizations/Mental Status: [] Client alert and oriented, casually dressed and groomed. Eye contact good. Motor activity appropriate. Speech within normal limits. Affect congruent, mood euthymic. Thoughts linear, logical, no signs of hallucinations or delusions. Client Response/Progress/Benefit: [] Pt engaged in session AEB client listening attentively to peers and providing input. Attentive and contributed to discussion as group worked on defining self-forgiveness and identifying mental health benefit. Identified benefits as: reduce guilt/shame, increase self-confidence, decrease negative self-talk, healthier relationships, ect. ?Worked in small groups to identify factors that can make self-forgiveness difficult. Pt stated having a hard time forgiving self for loss of job/income to focus on treating her mental health. Pt identified a personal barrier to self-forgiveness. Benefited from increased education on self-forgiveness, benefits, and what effects it. Pt will continue IOP tx to promote healthy coping, challenge negative thoughts, and prevent decompensation.
--- NOTE | 2025-06-30 11:15 | BH.SGPN.GN ---
Behaviors/Verbalizations/Mental Status: [] Client alert and oriented, casually dressed and groomed. Eye contact good. Motor activity appropriate. Speech within normal limits. Affect congruent, mood dysthymic. Thoughts linear, logical, no signs of hallucinations or delusions. Client Response/Progress/Benefit: [] Pt engaged in session AEB client listening attentively to peers and providing input. Attentive during psychoeducation on the 4 R?s of Self-Forgiveness (Responsibility, Remorse, Tenriism, Renewal). Contributed to discussion as group worked on identifying strategies for improving ability to practice self-forgiveness. Reports wanting to practice positive self-talk and giving herself permission to forgive herself. Engaged in self-forgiveness activity and benefited from increased education on self-forgiveness building skills. Pt will continue IOP tx to improve mood stability, increase self-compassion, and prevent decompensation. Narrative Note: []
--- NOTE | 2025-07-02 07:48 | PCM.BH.PN ---
Intake Vital Signs 05/21/25 10:13 07/02/25 07:48 Height 5 ft 5 in 5 ft 5 in Weight: 195 lb BP 133/92 H Pulse 85 BH Intake Visit Reasons: IOP Allergies venlafaxine (From Effexor) Allergy (Mild, Verified 12/23/24 12:51) Other lamotrigine (From Lamictal) Allergy (Verified 05/21/25 09:46) Rash diphenhydramine HCl (From Benadryl) Adverse Reaction (Verified 12/23/24 12:51) Other doxycycline Adverse Reaction (Verified 12/23/24 12:51) Nausea/Vom/Diarrhea promethazine HCl (From Phenergan) Adverse Reaction (Verified 12/23/24 12:51) Nausea sumatriptan (From Imitrex) Adverse Reaction (Verified 12/23/24 12:51) Other sumatriptan succinate (From Imitrex) Adverse Reaction (Verified 12/23/24 12:51) Other tramadol (From Ultram) Adverse Reaction (Verified 12/23/24 12:51) Other Medications ?Medication ?Instructions ?Recorded ?Confirmed ?Type aspirin 81 mg chewable tablet 81 mg PO DAILY@0800 ##30 11/20/14 05/21/25 Rx atorvastatin 20 mg tablet 20 mg PO DAILY@2200 #30 tabs 11/20/14 05/21/25 Rx carvedilol 3.125 mg tablet 12.5 mg PO BID 12/16/14 05/21/25 History melatonin 10 mg sublingual tablet 10 mg PO QHS 08/21/18 05/21/25 History cevimeline 30 mg capsule 30 mg PO TID 02/11/23 05/21/25 History clonazepam 1 mg tablet 1 mg PO QHS 02/11/23 05/21/25 History armodafinil 200 mg tablet 200 mg PO DAILY 01/01/24 05/21/25 History gabapentin 600 mg tablet 1,200 mg PO QHS 01/01/24 05/21/25 History levothyroxine 137 mcg tablet 137 mcg PO DAILY 01/01/24 05/21/25 History (Euthyrox) pantoprazole 40 mg tablet,delayed 40 mg PO BID 01/01/24 05/21/25 History release cariprazine 4.5 mg capsule 4.5 mg PO DAILY 05/21/25 05/21/25 History (Vraylar) divalproex 250 mg tablet,delayed 250 mg PO BID 05/21/25 05/21/25 History release semaglutide 2 mg/dose (8 mg/3 mL) 2 mg subcut QWEEK 05/21/25 05/21/25 History subcutaneous pen injector (Ozempic) bupropion HCl 300 mg 24 hr tablet, 300 mg PO QAM #30 tabs 07/02/25 Rx extended release HPI () History of Present Illness History provided by: patient Chief complaint: depression/anxiety HPI: Mahi Tan is a 49 year old female who presents today for follow up evaluation. Patient reports that things have been good for the most part. Did have some worsening anxiety over the course of the last week. Finds that it is worse with both driving and being out of the house. Recently went on a cruise and they changed destination from [facility] to [facility]. Was supposed to drive to [place], but had a panic attack and couldn't drive at all there or back. Found that even being in the car led to increased anxiety. Has been utilizing her clonazepam less frequently in recent past. Did have some suicidal thoughts this week because of the above stated anxiety. Review of systems () Constitutional Denies: fever(s), chills, change in weight or fatigue Eyes Denies: change in vision or blurry vision Ears, Nose, Mouth, Throat Denies: throat pain, neck pain or change in hearing Cardiovascular Denies: chest pain, palpitations or dyspnea Respiratory Denies: dyspnea, cough or wheezing Gastrointestinal Denies: abdominal pain, nausea, vomiting, diarrhea or constipation Genitourinary Denies: dysuria or urinary frequency Musculoskeletal Denies: back pain, neck pain, joint pain or muscle weakness Integumentary/Breast Denies: rash or new lesions Neurological Denies: headache(s), dizziness or confusion Endocrine Denies: fatigue or excessive sweating Hematologic/Lymphatic Denies: easy bruising or easy bleeding Allergic/Immunologic Denies: wheezing Exam Mental Status Exam- Psych () Appearance casually dressed Attitude withdrawn Activity/Motor Behavior psychomotor slowing Speech regular rate, regular prosody and soft Mood depressed and anxious Affect constricted Thought Process linear and coherent Thought Content no delusions and no hallucinations Suicidal Ideation passive; Not active, No intent and No plans Homicidal Ideation none Attention intact Concentration intact Sensorium/Orientation awake, alert and oriented x3 Memory/Cognition other (appropriate for stated age) Insight fair Judgement fair Assessment & Plan () Assessment & Plan (1) Bipolar 2 disorder, major depressive episode: Plan: - i continue Wellbutrin 300 mg every day ? Significantly more anxious secondary to stress related to vacation ? Patient plans to continue to utilize coping skills - Does have clonazepam for severe anxiety (2) PTSD (post-traumatic stress disorder): Plan: - engage in therapy (3) Generalized anxiety disorder: Plan: - see above Charges/Coding Behavior Health Behavior Health EST Pt E/M: 42675 Est Pt Level IV
--- NOTE | 2025-07-02 09:00 | BH.SGPN.GN ---
Behaviors/Verbalizations/Mental Status: [] Client alert and oriented, casual appearance. Eye contact fair. Motor activity appropriate. Speech within normal limits. Affect congruent, mood dysthymic. Thoughts linear, logical, no signs of hallucinations or delusions. Reviewed client's symptom tracker, no risk for suicidal ideation, plan, or intent. Client Response/Progress/Benefit: [] Client responded well to session AEB listening to others and sharing thoughts/feelings. Client reported month of positive as choosing to read instead of being scrolling. Client stated she has been doing better with engaging in different activities instead of sitting down and being on her phone for hours. Client noted current stressor is the weather being more gloomy this week. Appeared to benefit from support from peers. Will continue IOP tx to improve consistent utilization of healthy coping skills, challenge distortions, and prevent decompensation. Narrative Note: []
--- NOTE | 2025-07-02 10:15 | BH.SGPN.GN ---
Behaviors/Verbalizations/Mental Status: []Pt alert and oriented, neatly dressed and groomed. Eye contact good. Motor activity appropriate. Speech within normal limits. Affect constricted, mood anxious. Thoughts linear, logical, no signs of hallucinations or delusions. Client Response/Progress/Benefit: [] Pt engaged and actively participating in discussion, taking notes. Pt attentive during psychoeducation about the window of tolerance and noted personal connections. Group identified what contributes to low distress tolerance. The group gained awareness of the three zones of tolerance and pt was able to identify what they look like in each zone. Pt shared personal signs in hyperarousal zone are: wanting to escape the situation, canceling plans, and racing thoughts. Pt shared signs in the window of tolerance, they feel happy, rational, and calm. Pt appeared to benefit from psychoeducation on distress tolerance and practicing self-reflection. Pt will continue IOP tx to improve daily functioning, reduce anxiety, and improve self-confidence. Narrative Note: []
--- NOTE | 2025-07-02 11:15 | BH.SGPN.GN ---
Behaviors/Verbalizations/Mental Status: []Pt alert and oriented, casually dressed and groomed. Eye contact good. Motor activity appropriate. Speech within normal limits. Affect congruent, mood depressed and anxious. Thoughts linear, logical, no signs of hallucinations or delusions. Client Response/Progress/Benefit: [] Pt responded well to session AEB taking notes and contributing to discussion throughout. Pt engaged as group continued discussion on distress tolerance and the mental health benefits of widening their overall Window of Tolerance. Pt engaged with group in experiential activity provided input on connections between variables in the activity and distress tolerance. Worked within small groups to identify strategies to increase distress tolerance and reduce hyper-arousal and hypo-arousal states. Identified wanting to begin implementing distress tolerance skills of: journaling, deep breathing, and talking to supports. Pt appeared to benefit from gaining insight and learning strategies to increase distress tolerance. Pt will continue IOP tx to promote use of healthy coping skills, improve mood stability, and prevent decompensation. Narrative Note: []
--- NOTE | 2025-07-06 09:00 | BH.SGPN.GN ---
Behaviors/Verbalizations/Mental Status: [] Eye contact is good. Motor activity is appropriate. Appearance is casual. Speech is Appropriate. Mood is depressed. Affect is congruent. Thoughts are linear and logical. No evidence of psychosis. Client Response/Progress/Benefit: [] Pt participated when prompted. Attentive. Shared that she is utilizing opposite-action quiet often and is seeing benefits. Increased functioning and feeling more productive. Primary stress related to sleep. Progress noted per pt report. Will continue in IOP to maintain safety, prevent decompensation, and improve functioning. Narrative Note: []
--- NOTE | 2025-07-06 10:10 | BH.SGPN.GN ---
Behaviors/Verbalizations/Mental Status: [] Pt alert and oriented, casually dressed and groomed. Eye contact good. Motor activity appropriate. Speech within normal limits. Affect flat, mood depressed. Thoughts linear, logical, no signs of hallucinations or delusions. Client Response/Progress/Benefit: [] Pt responded well to session AEB listening attentively to others and taking notes. Limited engagement. Attentive as group provided examples of types of support (professional, pets, hobbies, community, spouse, spirituality, co-workers, family, etc) as well as benefits of having social support, including: validation, get perspective, and accountability. Pt also was attentive during group discussions regarding the barriers to accessing support and pt?s barriers included; isolation, overconfidence, reliance on unhealthy coping, and self-sabotage. Pt participated in experiential activity illustrating the impact communication, boundaries, and patience play in creating healthy support systems. Pt appeared to benefit from increased knowledge of the benefits of social support and greater self-awareness. Pt to continue IOP to prevent decompensation/re-admission to psych unit, stablize mood, and increase healthy coping. Narrative Note: []
--- NOTE | 2025-07-06 15:32 | BH.MDN_ITS ---
Multi-Disciplinary Note Note 30-min Individual: Time Started:: 11:20 Date: 07/06/25 Purpose of session/treatment goals addressed:: Purpose of session was to address goals 1 and 2 from MTP. Eye Contact:: Fair Motor Activity:: Appropriate Appearance:: Casual Speech:: Appropriate Mood:: Anxious Affect:: Congruent Thoughts:: Linear, Logical and No evidence of hallucinations/delusions noted Staff Interventions:: thought challenging, CBT techniques, mindfulness skills, discharge planning, strengths perspective, goal setting and taught coping skills Client Response:: Client reported she is doing better compared to last week, but noted the depression is still hanging on. Client reported she has been working her fear ladder again but noted some increased anxiety with previous exposure goals that had become easier until she took her to trip to [place]. Client stated she does feel frustrated that she has decompensated slightly with her anxiety exposure goals. Client noted yesterday when she was driving to [facility] she felt increased anxiety and hypervigilance compared to the numerous trips she had been successfully driving to prior to having to go on the trip to [place]. Client agreed she has been having increased negative thoughts towards herself for having a regression in her progress. client agreed this negativiity is likely impacting her mood. Client reports she has been being more intentional this week of making sure she does not go back into her old negative behaviors like scrolling on her phone for hours and not doing things around the house. Client stated last week she made herself cheese cooker every night and is engaging activities intentionally so that she puts her phone down. Client noted she also is trying to walk on her treadmill numerous times each week to get physical activity. Client stated she would like to add reading into her daily routine because something that she used to enjoy and knows it would likely be helpful with her mood and decreasing her phone usage. Client receptive to thought challenge and trying to refocus her thoughts on how far she has, compared to when she first started the program. Client agreed she will work on trying to utilize a healthy calming skill when she gets in her car to help decrease her anxiety prior to the drive. Client noted she does have a hard time with utilizing calming skills once she feels anxious in the moment and agrees it could be helpful for her to start practicing prior to taking a drive. Risks/Concerns:: Denies active suicidal ideation, plan, intention. Client has noted an increase in passive thoughts of since having decompensation with anxiety and depression when she went to her [place] trip. Client denies active SI and feels able to maintain safety. Progress Toward Goals/Plan:: Progress noted this client reporting continued use of healthy coping skills like cooking, change environment, getting out of the house, and trying to challenge her negative thoughts. Client has noted slight decompensation with increased anxiety while engaging in her fear ladder but despite having increased anxiety she is still working the fear latter and not giving up. Plan is for client to continue IOP for 2 more weeks to give client sufficient time to continue working on her fear ladder and improve her confidence as well as establish with follow-up care. Client provided with phone numbers for to local mental agencies to reach out to for counseling. Time Stopped:: 12:55
--- NOTE | 2025-07-07 09:00 | BH.SGPN.GN ---
Behaviors/Verbalizations/Mental Status: [] Pt alert and oriented, neatly dressed and groomed. Eye contact good. Motor activity appropriate. Speech within normal limits. Affect constricted, mood euthymic. Thoughts linear, logical, no signs of hallucinations or delusions. Reviewed pt?s symptom tracker, no risk for suicidal ideation, plan, or intent 07/07/25. Client Response/Progress/Benefit: []Pt was an active participant in group discussions. Attentive. Able to identify mental health wins including ?I got dinner with my daughter, and I was actually vulnerable and it was great.? Pt shared they have scheduled to have coffee together soon which pt is looking forward to. Pt's stressor today is ?trying to find a new therapist.? The group offered pt suggests managing this stressor and emotional support which pt reported was helpful. Pt is feeling ?anxious but content? this morning. Pt receptive to feedback from peers. Benefited from group support, encouragement, and feedback. Progress noted. Will continue IOP tx to prevent decompensation, improve self-confidence, and reduce avoidance behaviors.? ? Narrative Note: []
--- NOTE | 2025-07-07 10:10 | BH.SGPN.GN ---
Behaviors/Verbalizations/Mental Status: [] Pt alert and oriented, neat appearance, eye contact good. Motor activity appropriate. Speech within normal limits. Affect congruent. Mood anxious. Thoughts linear, logical, no signs of hallucinations or delusions. Client Response/Progress/Benefit: [] Pt was an active participant in group discussions on defining conflict (internal/external) and possible benefits to conflict. Attentive during psychoeducation on conflict styles (avoidant, accommodating, competing, cooperative) and engaged during group discussion in which the group identified when it is beneficial to use conflict styles and pitfalls of each conflict style. Pt was an active participant in small group exercise in which each group was given a scenario and a conflict resolution technique had to be utilized. Benefited from increased awareness of the impact of conflict styles on mental health. Will continue in IOP to increase coping skills, improve self-confidence, and prevent decompensation.
--- NOTE | 2025-07-07 11:10 | BH.SGPN.GN ---
Behaviors/Verbalizations/Mental Status: []Client alert and oriented, casually dressed and groomed. Eye contact fair. Motor activity appropriate. Speech within normal limits. Affect congruent, mood euthymic. Thoughts linear, logical, no signs of hallucinations or delusions. Client Response/Progress/Benefit: [] Pt engaged in session AEB contributing to discussion and engaging in small group. Attentive during discussion on strategies for more effectively managing conflict in personal life. Pt noted current conflict resolution style uses the most is avoidant because doesn't want to cause any issues. Pt participated in small group for activity and did well practicing how to manage conflict scenarios. Pt given handout on fair fighting rules and how to identify common conflict barriers. Pt indicated what needs improvement in conflict for them. Appeared to benefit from gaining strategies to help Pt better manage conflict. Will continue IOP tx to decrease anxious avoidance, improve healthy coping, and prevent decompensation.
--- NOTE | 2025-07-13 09:43 | BH.MDN ---
Multi-Disciplinary Note Note 30-min Individual: Time Started:: 09:00 Date: 07/13/25 Purpose of session/treatment goals addressed:: Purpose of session was to address goals 1 and 2 from [facility]. Eye Contact:: Good Motor Activity:: Appropriate Appearance:: Neat Speech:: Appropriate Mood:: Euthymic Affect:: Full Thoughts:: Linear, Logical and No evidence of hallucinations/delusions noted Staff Interventions:: thought challenging, CBT techniques, discharge planning and strengths perspective Client Response:: Client reported she is feeling much better the last couple days with decreased depression and decreased anxiety. Client stated yesterday she had to go to a primary care doctor appointment in the morning which required her to be able to drive 30 minutes to the office and 30 minutes home. Client stated she was anxious because since returning from her vacation her anxiety has been spiked in regards to driving. Client stated she utilized breathing technique that was encouraged in last individual session before she started driving. Client noted there was 1 time in which she did feel spiking anxiety but was able to work through it successfully make it to the doctor's office. Client noted her drive home from the doctor's office was even less anxiety provoking. Client stated she does believe this was a confidence boost to remind her that she is capable of driving and managing her anxiety. Client stated yesterday is one of the best that she has had in a long time in regards to not feeling as depressed and being able to manage her anxiety more effectively. Client stated she is continuing to work the fear ladder and is starting to be able to move up on her level of exposure. Client noted she is feeling anxious about discharging from [facility] next week because this program does provide routine, support, and accountability. Client and therapist discussed the importance of client starting to think about what activities and something she can do to fill the 9 hours/week that she dedicates to [facility]. It was discussed that if client does not have some sort of schedule post discharge from [facility] she could quickly go back to isolating which could spike her depression and anxiety. Client agreed this would likely be what happened and agreed for homework that she will start to identify what would be some option she could engage in to help fill her day up. Client stated she meets with her boss at the end of the month to discuss if she is going to be returning back to the job or if she thinks finding an better position would be in her best interest. Risks/Concerns:: Denies suicidal ideation, plan, intention. Future oriented. Progress Toward Goals/Plan:: Progress note of client being able to successfully drive independently 30 minutes to a doctor's office and 30 minutes back with being able to manage her anxiety. Client is reporting improved confidence since being able to drive herself for 30 minutes. Client does express some anxiety about discharging from IOP but recognizes she is significantly better compared to when she first started IOP. Client noted she has reached out to a local mental [facility] to start the process of establishing with a new outpatient therapist. Client noted her current outpatient therapist is unable to see her every week which she believes will be essential for her aftercare. Client is established with outpatient psychiatry with Dr. Lagunas. Plan is for client to continue IOP to maintain gains, promote healthy coping, and prevent decompensation. Plan is for client to attend to IOP days next week and discharge from program. Time Stopped:: 09:30
--- NOTE | 2025-07-13 10:10 | BH.SGPN.GN ---
Behaviors/Verbalizations/Mental Status: [] Eye contact is good. Motor activity is appropriate. Appearance is casual. Speech is Appropriate. Mood is anxious. Affect is congruent. Thoughts are linear and logical. No evidence of psychosis. Client Response/Progress/Benefit: [] Pt receptive to session AEB listening attentively to others and taking notes. Pt attentive and contributed throughout psychoeducation on the cognitive triangle and maintenance cycles. Pt engaged during group discussion reviewing the impact of daily activities and behaviors in either reinforcing unhealthy maintenance cycles and depression or assisting in reducing symptoms (?down? vs ?up? activities). Pt participated during interactive discussion in which the group identified their own common up activities (walking, listening to music, car rides, being outside, movement, creative projects, organizing, showering, etc) and down activities (isolating, substance use, sleeping to escapade, and engaging in compulsions). Appeared to benefit from increased awareness of current behaviors and impact these have on mental health. Will continue IOP to maintain safety, increase healthy coping, and improve functioning.
--- NOTE | 2025-07-13 11:10 | BH.SGPN.GN ---
Behaviors/Verbalizations/Mental Status: []Pt alert and oriented, casually dressed and groomed. Eye contact fair. Motor activity appropriate. Speech within normal limits. Affect congruent, mood dysthymic. Thoughts linear, logical, no signs of hallucinations or delusions. Client Response/Progress/Benefit: [] Pt responded well to session, attentive and engaged in group discussions and activity. Actively engaged in continued discussion about up activities and down activities. Active participant as group discussed values and the benefits that knowing one's values can have on one's mental health. Client completed provided worksheet in which they identified most important personal values and wrote down one opposite action activity can engage in to be more congruent with his value. Benefited from increased awareness of their up activities and how incorporating their values into behavioral activation goals can positively impact mental health. Will continue in IOP to continue working on fear ladder, build confidence, and prevent decompensation.
--- NOTE | 2025-07-14 09:00 | BH.SGPN.GN ---
Behaviors/Verbalizations/Mental Status: [] Pt alert and oriented, Casually dressed and groomed. Eye contact good. Motor activity appropriate. Speech within normal limits. Affect congruent, mood calm. Thoughts linear, logical, no signs of hallucinations or delusions. Reviewed pt?s symptom tracker, 1/5 with 5 being severe for risk for suicidal ideation, indicates a 0/5 for plan, and intent to kill self. Pt does not appear to be imminent risk to harm self.07/14/25. Client Response/Progress/Benefit: []Pt was an active participant in group discussions. Attentive. Per patients daily symptom tracker, pt indicates a 2/5 for depression and a 3/5 for anxiety, with 5 being severe. Pt's mental health win this week was spending time with her granddaughter, stating that this got her out of the house which was a win. Pt's other mental health positive was scheduling a self-care activity for herself after IOP. Pt's reported stressor is discharging from IOP soon, stating that she is worried about being able to utilize everything that she has learned without the support of the group. Pt has been doing well with the habit tracker, taking regular walks, lessening phone usage, and doing exposure goals five times a week. Pt was supportive and attentive to others in the group. Pt seemed to benefit from support from peers. Will continue IOP tx to promote healthy coping mechanisms, reduce negative thinking patterns, and prevent decompensation.
--- NOTE | 2025-07-14 10:10 | BH.SGPN.GN ---
Behaviors/Verbalizations/Mental Status: [] Eye contact is fair to good. Motor activity is appropriate. Appearance is casual. Speech is soft, limited input. Mood is euthymic. Affect is congruent. Thoughts are linear and logical. No evidence of psychosis. Client Response/Progress/Benefit: [] Client was an active participant in group discussion and experiential activity. Attentive during psychoeducation on resilience. Participated in interactive discussion with peers on the definition of resilience and where it comes from. Group identified that resiliency can be impacted by; past experiences, personality, and current mental health state. Group also worked together to identify the benefits of being resilient and how it is related to mental health. Able to relate experiential activity of group juggle to topics of resilience. Worked well with peers in small group in which they identified factors that contribute to resilience. Benefited from increased awareness of resilience and the factors that contribute to building resilience. Will continue in IOP to prevent decompensation and further promote mood stability. Narrative Note: []
--- NOTE | 2025-07-14 11:10 | BH.SGPN.GN ---
Behaviors/Verbalizations/Mental Status: [] Client alert and oriented, casually dressed and groomed. Eye contact fair. Motor activity appropriate. Speech within normal limits. Affect congruent, mood euthymic . Thoughts linear, logical, no signs of hallucinations or delusions Client Response/Progress/Benefit: [] Client responded well to session AEB completing the resilience worksheet provided. Client participated in the discussion and worked cooperatively with group to identify strategies to enhance each of the components discussed. Client reports belief they already use resilience trait of ?moving towards goals.? Client indicated she has grown this trait by utilizing fear ladder. Client stated they would like to continue to develop resilience trait of ?making connections.? Client seemed to benefit from discussing strategies for improving personal resilience and identifying resilience traits Client already possesses.. Will continue IOP tx to promote mood stability, reduce negative thinking patterns, and increase distress tolerance skills. Narrative Note: []
--- NOTE | 2025-07-16 09:00 | BH.SGPN.GN ---
Behaviors/Verbalizations/Mental Status: [] Pt alert and oriented, Neatly dressed and groomed. Eye contact good. Motor activity appropriate. Speech within normal limits. Affect congruent, mood calm. Thoughts linear, logical, no signs of hallucinations or delusions. Reviewed pt?s symptom tracker, 1/5 with 5 being severe for risk for suicidal ideation, indicates a 0/5 for plan, and intent to kill self. Pt does not appear to be imminent risk to harm self.07/16/25. Client Response/Progress/Benefit: []Pt was an active participant in group discussions. Attentive. Per patients daily symptom tracker, pt indicates a 2/5 for depression and a 2/5 for anxiety, with 5 being severe. Pt shared a mental health positive as feeling motivated and productive, leading her to do some deep cleaning around the house. Pt was unsure of why motivation increased, but stated that she feels she has been doing better overall while being in IOP which could lead to an increase in functioning. Pt's also reported being able to catch herself engaging in negative self-talk, and was able to replace negative cognitions with positive cognitions. Pt's stressor is looking for an outpatient therapist to continue services with after discharging from IOP in a few weeks. Pt was supportive and attentive to others in the group. Pt seemed to benefit from support from peers. Will continue IOP tx to promote healthy coping mechanisms, improve confidence, and prevent decompensation.
--- NOTE | 2025-07-16 10:15 | BH.SGPN.GN ---
Behaviors/Verbalizations/Mental Status: [] Eye contact is good. Motor activity is appropriate. Appearance is casual. Speech is Appropriate. Mood is depressed. Affect is flat. Thoughts are linear and logical. No evidence of psychosis. Client Response/Progress/Benefit: [] Limited engagement in group discussions however attentive AEB note-taking. Attentive during psychoeducation on anxiety and cognitive triangle. Attentive during interactive discussion on defining anxiety and identifying cognitive and physiological symptoms of anxiety. The group discussed helpful vs harmful anxiety. Attentive as peers worked together to identify common physical/physiological signs of anxiety which included: butterflies in stomach, tension, increased HR, trembling, dry mouth, headaches, numbness/tingling, hot flashes, sweating, and blurry vision. Benefited from increased awareness and insight on anxiety and its impact. Will continue in IOP to prevent decompensation, maintain safety, and improve functioning. Narrative Note: []
--- NOTE | 2025-07-16 11:15 | BH.SGPN.GN ---
Behaviors/Verbalizations/Mental Status: [] Eye contact is good. Motor activity is appropriate. Appearance is appropriate. Speech is Appropriate. Mood is anxious. Affect is congruent. Thoughts are linear and logical. No evidence of psychosis. Client Response/Progress/Benefit: [] Pt was an active participant AEB pt providing input and listening attentively to peers. Attentive during psychoeducation on mindfulness coping skills, body-based coping skills, and mind-based coping skills and their impact on reducing anxiety and improving overall mental health wellness. Group was able to identify self-soothing and mind-based coping skills which included: 5-senses, meditation, deep breathing, walking/exercise, music, engaging with others, opposite-action, and affirmations. Pt verbalized skill to make effort to use this week as: TIPP and watching a comfort movie. Pt will continue IOP to prevent decompensation, maintain safety, increase healthy coping, and improve functioning. Narrative Note: []
--- NOTE | 2025-07-21 09:00 | BH.SGPN.GN ---
Behaviors/Verbalizations/Mental Status: [] Pt alert and oriented, Casually dressed and groomed. Eye contact good. Motor activity appropriate. Speech within normal limits. Affect congruent, mood calm. Thoughts linear, logical, no signs of hallucinations or delusions. Reviewed pt?s symptom tracker today, denies suicidal ideation, plan, and intent.07/21/25. Client Response/Progress/Benefit: []Pt was an active participant in group discussions. Attentive. Per patients daily symptom tracker, pt indicates a 2/5 for depression and a 2/5 for anxiety, with 5 being severe. Pt shared their first mental health positive as showing up to group despite getting poor sleep the night before. Pt's other mental health win was setting up an appointment with a new outpatient therapist and psychiatrist. Pt's stressor was erratic sleep, making it difficult for her to get out of bed and come to group. Pt appears to be staying consistent with walking, using her phone less, and reaching exposure goals according to her habit tracker. Pt was supportive and attentive to others in the group. Pt seemed to benefit from support from peers. Will continue IOP tx to promote healthy coping mechanisms, improve self confidence, and prevent decompensation.
--- NOTE | 2025-07-21 10:10 | BH.SGPN.GN ---
Behaviors/Verbalizations/Mental Status: []Pt alert and oriented, casually dressed and groomed. Eye contact good. Motor activity appropriate. Speech within normal limits. Affect congruent, mood anxious. Thoughts linear, logical, no signs of hallucinations or delusions. Client Response/Progress/Benefit: []Pt responded well to session AEB pt listening attentively to others and providing input throughout group discussions. Pt worked with group to identify potential barriers to effective problem-solving. Pt attentive and engaged during psychoeducation about the different problem-solving styles (impulsive-careless, avoidant, and problem solving). Pt shared current problem-solving style they utilize is avoidance style.? Pt seemed to benefit from increased awareness of current problem-solving style and the impact this style has on their mental health. Will continue IOP tx to prevent decompensation, continue working on fear ladder, and increase consistent use of healthy coping skills. Narrative Note: []
--- NOTE | 2025-07-21 11:00 | BH.SGPN.GN ---
Behaviors/Verbalizations/Mental Status: []Client alert and oriented, casually dressed and groomed. Eye contact good. Motor activity appropriate. Speech within normal limits. Affect congruent, mood euthymic. Thoughts linear, logical, no signs of hallucinations or delusions. Client Response/Progress/Benefit: [] Pt engaged in session AEB contributing to discussion and engaging in small group. Attentive during discussion on strategies for more effectively solving problems in personal life. Pt participated in small group for activity and did well practicing problem-solving skills with the group in the moment. Pt identified a current problem they are struggling to solve as: isolation. Reports next step in resolving this as: plan set weekly activities. Appeared to benefit from gaining strategies to help Pt better manage daily problems. Will continue IOP tx improve distress tolerance, challenge distortions, and prevent decompensation. Narrative Note: []
--- NOTE | 2025-07-23 10:10 | BH.SGPN.GN ---
Behaviors/Verbalizations/Mental Status: [] Pt alert and oriented, casually dressed and groomed. Eye contact good. Motor activity appropriate. Speech within normal limits. Affect congruent, mood euthymic. Thoughts linear, logical, no signs of hallucinations or delusions. Client Response/Progress/Benefit: [] Client engaged during group session as evidenced by contributions during group discussions, appearing to listen to others, and taking notes. Client engaged in small group discussion about barriers that keep people from having difficult conversations. Group identified potential reasons individuals avoid difficult conversations which included; feeling uncomfortable, reaction of others, fear, and not in a good place mentally. Group also identified benefits to having crucial conversations. Pt identified that when having crucial conversations, she doesn't want to start conflict. Client seemed to benefit from increased awareness and education about importance of having difficult conversations and recognizing the impact of avoiding such conversations. Client successfully discharging program today. Narrative Note: []
--- NOTE | 2025-07-23 11:10 | BH.SGPN.GN ---
Behaviors/Verbalizations/Mental Status: [] Pt alert and oriented, casually dressed and groomed. Eye contact good. Motor activity appropriate. Speech within normal limits. Affect congruent, mood euthymic. Thoughts linear, logical, no signs of hallucinations or delusions. Client Response/Progress/Benefit: [] Pt was an active participant, engaged in activities and discussion. Pt able to identify ways they negatively contribute to crucial conversations and pt was engaged during psychoeducation of the different ways to build interpersonal effectiveness skills. Pt and peers practiced mirroring and active listening in partners. Group reviewed [employer] and used the handout to help map out how they would like a crucial conversation in their life to go. Pt shared with group that she wants to have a crucial conversation with her boss about returning to work. Pt is discharging today from the program successfully. Narrative Note: []
== END 2025-07-23 12:06 | disposition home or self-care (01) ==
LOC: BHIOP 08:04
PROVIDERS: PCP Nurse Practitioner Family; Referring Provider Student in an Organized Health Care Education/Training Program; Visit Provider Student in an Organized Health Care Education/Training Program
DX: F31.30 Bipolar disorder, current episode depressed, mild or moderate severity, unspecified (principal); F43.10 Post-traumatic stress disorder, unspecified; F41.1 Generalized anxiety disorder
CPT/HCPCS: S9480; 90832; 90834; 90853

== ENCOUNTER 2025-07-29 08:00 | Outpatient (RCR) | payer BC, SELFPAY | END 2025-07-30 07:42 | disposition left against medical advice (07) | LOC: BHOG 08:00 | PROVIDERS: PCP Nurse Practitioner Family; Referring Provider Student in an Organized Health Care Education/Training Program; Visit Provider Student in an Organized Health Care Education/Training Program | DX: Z00.00 Encounter for general adult medical examination without abnormal findings (principal) ==